=== PATIENT | female | born 1955 | race Caucasian/White ===

== ENCOUNTER 2017-06-01 14:59 | Inpatient (IN) | payer MEDICARE, SELFPAY ==
[2017-06-01 15:00] VITALS: BP 137/61; PULSE 93; RESP 18; TEMP 37.1; O2SAT 95; BMI 51.2
[2017-06-01 15:28] LABS: Color, Urine Yellow (Yellow); Glucose, Dipstick Normal (Normal); Ketone-Dipstick Negative (Negative); Leukocyte Esterase-Dipstick 25 /ul (Negative); Nitrite-Dipstick Negative (Negative); Occult Blood-Urine 150 /ul (Negative); Protein-Dipstick 30 mg/dl (Negative); Specific Gravity, Urine 1.015 (1.002-1.030); Urine Bilirubin Dipstick Negative (Negative); Urine Clarity Sl. Cloudy (Clear); Urine Urobilinogen Normal (Normal)
[2017-06-01 15:37] LABS: Bacteria RARE /hpf (None Seen); Mucous, Urine 1+ /hpf (<or=2+); Red Blood Cells-Urine 0-5 SEEN /hpf (0-5); Squamous Epithelial Cells - UA 0-5 SEEN /hpf (5-10); White Blood Cells 0-5 SEEN /hpf (0-5)
--- NOTE | 2017-06-01 15:43 | ED.VISSUMM ---
- ER Visit Summary Date of Service: 06/01/17 Chief Complaint: [] Persistent UTI symptoms, asking for Cipro History of Present Illness: The patient is a 62 F [] long history of UTI lower extremity edema looks from the pain and weakness and frequent UTIs. She was recently diagnosed a UTI she was prescribed ciprofloxacin which helps her UTIs, she gets when she went to pharmacy to fill the medication she was told she would not be able to get the Cipro for unspecified reasons to her possibly a med reaction, and she was given Keflex, the Keflex has made no difference she has persistent burning with urination and frequent urination she is constantly running to the restroom. She has had no fever no cough no change in her chronic medical conditions or status she states she is basically at baseline at home with her functional abilities Physical Examination: [] This is a large woman she has a large pannus ventral abdominal hernia her pannus extends into her area she has 2-3+ lower extremity edema she has chronic lower extremity pain none of that is new or different her range of motion to her lower extremities is normal her head exam chest exam abdominal exam are generally unremarkable her abdomen is very soft and nontender there is a ventral hernia that is not tender her back is unremarkable neurologically she is moving her lower extremities upper extremities at her baseline she assures me that she is basically at her baseline with her functional status, she does admit to being exhausted and had run back and forth to the bathroom Test Results: [] Emergency Department Course and Treatment: [] Patient insists that none of her medications are new she does not know why she could not have the Cipro I spoke with the [facility] pharmacist [phone] reviewed all of the above the pharmacist reports that in fact the Zanaflex medication is new and it was prescribed 05/17/2017 and the patient's never had it before and there is a contraindication to Cipro and Zanaflex. It is safe per pharmacy for the patient to stop the Zanaflex and resume the Cipro, I explained this to the patient that is what she wants to do at this time we will have her stop the Zanaflex she understands interactive can cause serious complications we will obtain screening labs to follow-up with her physicians The patient's urine shows some signs of UTI again she has been on Keflex, she does insist that she be placed on Cipro that helps her UTIs, she absolutely understands the need to stop the Zanaflex while she is on the Cipro as this could cause serious side effects for side effects and she will follow with her family doctor the next few days return for change in symptoms, she was given a prescription for Cipro for 7 days and she will stop the Keflex since it did not help and she understands a urine culture is pending and this must be checked by her PCP Treatment Plan: [] Disposition: [] Pending hospitalist evaluation please note the patient is now reporting she is too weak and tired to go home, she has full range of motion of her lower extremities at her baseline she assured me that her functional status was unchanged she did complain that she was tired from running back and forth to the bathroom, given all the above I have asked the hospitalist to see her Impression: [] Urinary tract infection, persistent dysuria despite the use of Keflex, history of frequent UTIs This note was generated with [employer] dictation software. It may contain incorrect words, spelling, and punctuation that were not noted in review of the chart prior to signing ED Disposition - Plan for ED Patient: Chief Complaint: Complaint Instructions: ED UTI Cystitis Female Prescriptions: Ciprofloxacin [Cipro] 500 mg PO BID #14 tab Referrals: Brittany Sorenson MD [Primary Care Provider] - Additional Instructions: Stop Keflex, stop Zanaflex while you are taking Cipro it can cause life-threatening side effects
--- NOTE | 2017-06-01 15:46 | ED.DCSUM_ITS ---
- ER Visit Summary Date of Service: 06/01/17 Chief Complaint: [] Persistent UTI symptoms, asking for Cipro History of Present Illness: The patient is a 62 F [] long history of UTI lower extremity edema looks from the pain and weakness and frequent UTIs. She was recently diagnosed a UTI she was prescribed ciprofloxacin which helps her UTIs, she gets when she went to pharmacy to fill the medication she was told she would not be able to get the Cipro for unspecified reasons to her possibly a med reaction, and she was given Keflex, the Keflex has made no difference she has persistent burning with urination and frequent urination she is constantly running to the restroom. She has had no fever no cough no change in her chronic medical conditions or status she states she is basically at baseline at home with her functional abilities Physical Examination: [] This is a large woman she has a large pannus ventral abdominal hernia her pannus extends into her area she has 2-3+ lower extremity edema she has chronic lower extremity pain none of that is new or different her range of motion to her lower extremities is normal her head exam chest exam abdominal exam are generally unremarkable her abdomen is very soft and nontender there is a ventral hernia that is not tender her back is unremarkable neurologically she is moving her lower extremities upper extremities at her baseline she assures me that she is basically at her baseline with her functional status, she does admit to being exhausted and had run back and forth to the bathroom Test Results: [] Emergency Department Course and Treatment: [] Patient insists that none of her medications are new she does not know why she could not have the Cipro I spoke with the [facility] pharmacist [phone] reviewed all of the above the pharmacist reports that in fact the Zanaflex medication is new and it was prescribed 2017 and the patient's never had it before and there is a contraindication to Cipro and Zanaflex. It is safe per pharmacy for the patient to stop the Zanaflex and resume the Cipro, I explained this to the patient that is what she wants to do at this time we will have her stop the Zanaflex she understands interactive can cause serious complications we will obtain screening labs to follow-up with her physicians The patient's urine shows some signs of UTI again she has been on Keflex, she does insist that she be placed on Cipro that helps her UTIs, she absolutely understands the need to stop the Zanaflex while she is on the Cipro as this could cause serious side effects for side effects and she will follow with her family doctor the next few days return for change in symptoms, she was given a prescription for Cipro for 7 days and she will stop the Keflex since it did not help and she understands a urine culture is pending and this must be checked by her PCP Treatment Plan: [] Disposition: [] Pending hospitalist evaluation please note the patient is now reporting she is too weak and tired to go home, she has full range of motion of her lower extremities at her baseline she assured me that her functional status was unchanged she did complain that she was tired from running back and forth to the bathroom, given all the above I have asked the hospitalist to see her Impression: [] Urinary tract infection, persistent dysuria despite the use of Keflex, history of frequent UTIs This note was generated with [employer] dictation software. It may contain incorrect words, spelling, and punctuation that were not noted in review of the chart prior to signing ED Disposition - Plan for ED Patient: Chief Complaint: Complaint Instructions: ED UTI Cystitis Female Prescriptions: Ciprofloxacin [Cipro] 500 mg PO BID #14 tab Referrals: Brittany Sorenson MD [Primary Care Provider] - Additional Instructions: Stop Keflex, stop Zanaflex while you are taking Cipro it can cause life- threatening side effects
[2017-06-01 16:20] LABS: Anion Gap 11 (5-15); BUN 48 mg/dL (7-18); BUN/Creat Ratio 35.6 RATIO (10-20); Calcium,Total 9.5 mg/dL (8.5-10.1); Chloride 105 mmol/L (98-107); Creatinine, Serum 1.35 mg/dL (0.55-1.02); EST Glomerular Filtration Rate 43 mL/min (>60); Est Glom Filt Rate - Afr Amer 51 mL/min (>60); Estimated Creatinine Clearance 35.05 ml/min; Glucose 149 mg/dL (70-110); Potassium 4.9 mmol/L (3.5-5.1); Sodium Level 137 mmol/L (136-145)
[2017-06-01 16:34] LABS: Absolute Lymphocyte Count 0.92 X10^3/ul (0.83-4.51); Basophil# 0.02 X10^3/uL; Basophil% 0.3 % (0-1); Eosinophil# 0.04 X10^3/uL; Eosinophils% 0.5 % (0-5); Hematocrit 33.6 % (37-47); Hemoglobin 10.8 g/dl (12.0-15.0); Lymphocyte # 0.92 X10^3/ul (4.0); Lymphocyte % 12.5 % (19-41); Mean Corp Hgb Conc 32.1 g/gl (32-36); Mean Corpuscular Volume 90.1 fL (81-99); Mean Platelet Vol. 10.3 fl (6.2-12.0); Monocyte# 0.43 X10^3/uL; Monocyte% 5.8 % (0-10); Neutrophil # 5.95 X10^3/uL (2.7-7.7); Neutrophil % 80.8 % (47-70); Platelet Count 135 K/mm3 (150-450); RBC Distribution Width CV 13.6 % (11.6-14.6); RBC Distribution Width SD 44.9 fl (35.1-43.9); Red Blood Count 3.73 M/mm3 (4.2-5.4); White Blood Count 7.4 K/mm3 (4.4-11.0)
[2017-06-01 16:39] LABS: POSITIVE COUNT NO; POSITIVE DIFFERENTIAL NO; POSITIVE MORPHOLOGY NO
--- NOTE | 2017-06-01 17:26 | DCINST.ED_ITS ---
ED Disposition - Plan for ED Patient: Chief Complaint: Complaint Instructions: ED UTI Cystitis Female Prescriptions: Ciprofloxacin [Cipro] 500 mg PO BID #14 tab Referrals: Brittany Sorenson MD [Primary Care Provider] - Additional Instructions: Stop Keflex, stop Zanaflex while you are taking Cipro it can cause life- threatening side effects
[2017-06-01 17:41] VITALS: BP 157/92; PULSE 95; RESP 18; O2SAT 98
--- NOTE | 2017-06-01 17:49 | ED.RN ---
2940-THIS RN INTO ROOM TO D/C PATIENT. PATIENT STATES I AM UNABLE TO WALK AND SISTER SAYS SHE CANNOT TAKE CARE OF HERSELF AT HOME. PATIENT REFUSING TO BE DISCHARGED AT THIS TIME. ED PHYSICIAN NOTIFIED AND HOSPITALIST PAGED.
--- NOTE | 2017-06-01 18:08 | HP.PCM_ITS ---
Problem List (1) Urinary tract infection Status: Acute Qualifiers: Encounter type: initial encounter (2) Morbid obesity Status: Chronic (3) Depression Status: Chronic Qualifiers: Depression Type: unspecified Qualified Code(s): F32.9 - Major depressive disorder, single episode, unspecified (4) Hypertension Status: Chronic Qualifiers: Hypertension type: essential hypertension Qualified Code(s): I10 - Essential (primary) hypertension (5) Type 2 diabetes mellitus Status: Chronic Qualifiers: Diabetes mellitus complication status: with unspecified complications History of Present Illness Date of Admission: 06/01/17 Chief Complaint: Urine urgency and frequency The patient is a 62 year old F with PMHx of morbic obesity, T2DM, noton meds, hypertension, h/o recurrent UTI comes in with complains of urine frequency, lower abdominal discomfort, generalised weakness, inabilityto walk. She denies dysuria, fever or chills. Recently treated with po keflex but says she has persistent symptoms. Vitals in the ED were T 98.8F, HR 93, BP 137/61, RR 18. Spo2 98% on RA. Admitting labs were stable, WBC of 7.8, Hb 10.8, Plt 135, BUN 48, Cr 1.35 UA is slightly cloudy, leucocyte esterase positive, WBC 0-5 Past Medical History Past Medical History (Chronic Problems): Chronic Problems Hyperlipidemia (Chronic) Umbilical hernia (Chronic) Morbid obesity (Chronic) Osteoarthritis (Chronic) Depression (Chronic) Hypertension (Chronic) Type 2 diabetes mellitus (Chronic) Allergies amoxicillin Adverse Reaction (Verified 06/01/17 15:00) Other latex Adverse Reaction (Verified 06/01/17 15:00) Other Home Medications: Ambulatory Orders Medication Instructions Recorded Citalopram [Celexa] 20 mg PO DAILY 07/10/16 Metoprolol Tartrate [Lopressor 50 mg PO BREAKFAST 07/10/16 (beta tristen)] Metoprolol Tartrate [Lopressor 100 mg PO QHS 07/10/16 (beta tristen)] Morphine Sulfate [Ms Contin] 60 mg PO BID 09/21/16 Cephalexin [Keflex] 500 mg PO TID 06/01/17 Diclofenac Potassium 50 mg PO TID PRN 06/01/17 Tizanadine Hcl 4 mg PO Q6H PRN PRN 06/01/17 Surgical History: cholecystectomy Psychiatric History: Depression 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 Denies: Chills, Fever, Weight Change Eyes: Denies: Blurred vision, Cataracts, Double vision, Pain, Redness HEENT: Denies: Head Aches, Hearing Changes, Nasal bleeding, Sinus Congestion, Sinus Drainage Cardiovascular: Denies: Chest Pain, Claudication, Chest Pressure, Orthopnea, Palpitations, Paroxysmal Noc. Dyspnea Respiratory: Denies: Cough, Hemoptysis, Shortness of Breath, Shortness of breath at rest, Shortness of breath upon exertion, Sputum production Gastrointestinal: Reports: Abdominal Pain. Denies: Constipation, Diarrhea, Hematemesis, Hematochezia, Nausea, Vomiting Genitourinary: Reports: Frequency, Urgency. Denies: Dysuria, Hematuria, Hesitancy, Incontinence Gynecological: Reports: Breast symptoms Musculoskeletal: Reports: - - Back pain. Denies: Joint Pain, Joint Tenderness Skin: Denies: Pruritis, Rash, Wounds Neurological: Denies: Difficulty swallowing, Focal weakness, Numbness, Tingling Psychiatric: Denies: Anxiety, Depression, Homicidal Ideations, Suicidal Ideations Hematologic/ Lymphatic: Denies: Easy Bruising, Easy Bleeding VTE Information - Inpt Only VTE Present on Admission: No VTE Pharm Prophylaxis ordered?: Yes - Physical Exam General: Alert, Oriented x3, Cooperative, - - Morbidly obese, looks well, not pale, not jaundiced HEENT: Atraumatic, PERRLA, EOMI, Normocephalic Oral: Moist Mucosa Neck: Supple Lungs: Clear to auscultation, Normal air movement Cardiovascular: Regular rate, Regular Rhythm, Normal S1, Normal S2, No murmurs Abdomen: Bowel Sounds Present, Soft, Non Tender, Non-Distended, No Hepato- splenomegaly, - - Huge anterior abdominal wall pannus Extremities: No edema Skin: No rashes Musculoskeletal: No Tenderness to Palpation of Joints or Extremities Lymphatic: No Cervical, Supraclavicular, or Inguinal Adenopathy Neurological: Cranial nerves II-XII grossly intact Psych/Mental Status: Normal Affect, Appropriate Vital Signs Temp Pulse Resp BP Pulse Ox 98.8 F 95 18 157/92 H 98 06/01/17 15:00 06/01/17 17:41 06/01/17 17:41 06/01/17 17:41 06/01/17 17:41 Oxygen Delivery Method Room Air Weight: 127.006 kg Body Mass Index (BMI) 51.2 Finger Stick Blood Glucose 145 Laboratory Tests Past 24 Hrs 06/01/17 06/01/17 06/01/17 15:10 15:45 15:45 WBC Cancelled Corrected WBC Cancelled RBC Cancelled Hgb Cancelled Hct Cancelled MCV Cancelled MCH Cancelled MCHC Cancelled RDW Cancelled RDW Differential Cancelled Plt Count Cancelled MPV Cancelled Immature Gran % (Auto) Cancelled Neut % (Auto) Cancelled Lymph % (Auto) Cancelled [place] % (Auto) Cancelled Eos % (Auto) Cancelled Baso % (Auto) Cancelled Immature Gran # (Auto) Cancelled Absolute Neuts (auto) Cancelled Absolute Lymphs (auto) Cancelled Absolute Monos (auto) Cancelled Total Counted Cancelled Neutrophils % (Manual) Cancelled Band Neutrophils % Cancelled Lymphocytes % (Manual) Cancelled Monocytes % (Manual) Cancelled Eosinophils % (Manual) Cancelled Basophils % (Manual) Cancelled Metamyelocytes % Cancelled Myelocytes % Cancelled Promyelocytes % Cancelled Blast Cells % Cancelled Plasma Cell % (Manual) Cancelled Other Cells % Cancelled Lymphocytes # Cancelled Nucleated RBCs/100 WBC Cancelled Differential Comment Cancelled Diff Path Review Cancelled Hypersegmented Neuts Cancelled Atypical Lymphocytes Cancelled Reactive Lymphocytes Cancelled Smudge Cells Cancelled Eosinophilia # Cancelled Basophilia # Cancelled Toxic Granulation Cancelled Dohle Bodies Cancelled Jareth Rods Cancelled Platelet Estimate Cancelled Plt Morphology Comment Cancelled RBC Morphology Cancelled Polychromasia Cancelled Hypochromasia Cancelled Poikilocytosis Cancelled Basophilic Stippling Cancelled Anisocytosis Cancelled Microcytosis Cancelled Macrocytosis Cancelled Spherocytes Cancelled Sickle Cells Cancelled Target Cells Cancelled Tear Drop Cells Cancelled Ovalocytes Cancelled Stomatocytes Cancelled Cordero-[place] Bodies Cancelled [place] Cells Cancelled Bite Cells Cancelled Acanthocytes (Spur) Cancelled Rouleaux Cancelled Schistocytes Cancelled Sodium 137 Potassium 4.9 Chloride 105 Carbon Dioxide 21.0 Anion Gap 11 BUN 48 H Creatinine 1.35 H Estim Creat Clear Calc 35.05 Est GFR (MDRD) Af Amer 51 L Est GFR (MDRD) Non-Af 43 L BUN/Creatinine Ratio 35.6 H Glucose 149 H Calcium 9.5 Urine Color Yellow Urine Clarity Sl. Cloudy Urine pH 5.0 Ur Specific [place] 1.015 Urine Protein 30 H Urine Glucose (UA) Normal Urine Ketones Negative Urine Occult Blood 150 H Urine Nitrite Negative Urine Bilirubin Negative Urine Urobilinogen Normal Ur Leukocyte Esterase 25 H Urine RBC 0-5 SEEN Urine WBC 0-5 SEEN Ur Squamous Epith Cells 0-5 SEEN Urine Bacteria RARE Urine Mucus 1+ 06/01/17 16:15 WBC 7.4 Corrected WBC RBC 3.73 L Hgb 10.8 L Hct 33.6 L MCV 90.1 MCH 29.0 MCHC 32.1 RDW 13.6 RDW Differential 44.9 H Plt Count 135 L MPV 10.3 Immature Gran % (Auto) 0.100 Neut % (Auto) 80.8 H Lymph % (Auto) 12.5 L [place] % (Auto) 5.8 Eos % (Auto) 0.5 Baso % (Auto) 0.3 Immature Gran # (Auto) Absolute Neuts (auto) 6.0 Absolute Lymphs (auto) 0.92 Absolute Monos (auto) Total Counted Not Reportable Neutrophils % (Manual) Band Neutrophils % Lymphocytes % (Manual) Monocytes % (Manual) Eosinophils % (Manual) Basophils % (Manual) Metamyelocytes % Myelocytes % Promyelocytes % Blast Cells % Plasma Cell % (Manual) Other Cells % Lymphocytes # Nucleated RBCs/100 WBC Differential Comment Diff Path Review Hypersegmented Neuts Atypical Lymphocytes Reactive Lymphocytes Smudge Cells Eosinophilia # Basophilia # Toxic Granulation Dohle Bodies Jareth Rods Platelet Estimate Plt Morphology Comment RBC Morphology Polychromasia Hypochromasia Poikilocytosis Basophilic Stippling Anisocytosis Microcytosis Macrocytosis Spherocytes Sickle Cells Target Cells Tear Drop Cells Ovalocytes Stomatocytes Cordero-Est[place] Bodies Meghan Cells Bite Cells Acanthocytes (Spur) Rouleaux Schistocytes Sodium Potassium Chloride Carbon Dioxide Anion Gap BUN Creatinine Estim Creat Clear Calc Est GFR (MDRD) Af Amer Est GFR (MDRD) Non-Af BUN/Creatinine Ratio Glucose Calcium Urine Color Urine Clarity Urine pH Ur Specific [place] Urine Protein Urine Glucose (UA) Urine Ketones Urine Occult Blood Urine Nitrite Urine Bilirubin Urine Urobilinogen Ur Leukocyte Esterase Urine RBC Urine WBC Ur Squamous Epith Cells Urine Bacteria Urine Mucus Assessment/Plan 62 year old F with PMHx of morbic obesity, T2DM, noton meds, hypertension, h/o recurrent UTI comes in with complains of urine frequency, lower abdominal discomfort, generalised weakness, inabilityto walk 1. Debility related to acute UTI, morbidly obese, recurrent UTI Plan: Admit under observation, gentle IV fluids, p.o. Cipro twice daily, PT and OT to evaluate patient 2. UTI, history of recurrent UTI, in a morbidly obese patient, recently treated with Keflex, will start patient on Cipro, urine culture sent by ED, will wait for results to adjust medication 3. Acute kidney injury, likely related to dehydration, will start patient on IV fluids, repeat labs in the morning 4. Type 2 diabetes, in a morbidly obese patient, not on medications at home, will check HbA1c, continue with Accu-Cheks 5. Hypertension, controlled, continue on home metoprolol 6. Depression, on Celexa 7. Chronic pain syndrome, on MS Contin and diclofenac, will hold diclofenac for now, continue on MS Contin 8. DVT PPx - On Lovenox 40mg BID on account of morbid obesity. Code Visit OBSV E&M: 62290 Initial observation care L2
[2017-06-01] MEDS: Ciprofloxacin 500 MG Tablet PO (18:53)
[2017-06-01 18:55] VITALS: BP 144/70; PULSE 72; RESP 16; O2SAT 97
[2017-06-01 19:30] VITALS: BP 128/70; PULSE 94; RESP 16; TEMP 36.9; O2SAT 98
[2017-06-01 20:02] VITALS: BMI 51.2; BMI 54.6
[2017-06-01 20:28] LABS: Iron 62 ug/dL (50-170); Iron Binding Capacity,Total 332 ug/dL (250-450); PERCENT IRON SATURATION 18.7 % (15.0-55.0)
[2017-06-01 22:40] VITALS: O2SAT 98
[2017-06-01] MEDS: Enoxaparin 40 MG/0.4 ML Syringe SC (22:53)
[2017-06-01 22:55] VITALS: BP 119/55; PULSE 94
[2017-06-01] MEDS: Metoprolol Tartrate 100 MG Tablet PO (22:55)
[2017-06-01] MEDS: 0.9% Normal Saline 1,000 ML 100 ML IV (22:59)
[2017-06-01 23:26] LABS: Bedside Glucose 99 mg/dL (70-110)
[2017-06-02] VITALS (8 sets, daily range): BP systolic 115–141; BP diastolic 59–76; PULSE 80–93; RESP 18; TEMP 36.8–37.5; O2SAT 94–98
[2017-06-02 06:28] LABS: Absolute Lymphocyte Count 1.87 X10^3/ul (0.83-4.51); Absolute Neutrophil Count 3.4 X10^3/uL (2.0-7.7); Basophil# 0.02 X10^3/uL; Basophil% 0.3 % (0-1); Eosinophil# 0.13 X10^3/uL; Eosinophils% 2.2 % (0-5); Hematocrit 30.7 % (37-47); Hemoglobin 9.7 g/dl (12.0-15.0); Lymphocyte # 1.87 X10^3/ul (4.0); Lymphocyte % 31.1 % (19-41); Mean Corp Hgb Conc 31.6 g/gl (32-36); Mean Corpuscular Volume 91.6 fL (81-99); Mean Platelet Vol. 10.5 fl (6.2-12.0); Monocyte# 0.61 X10^3/uL; Monocyte% 10.1 % (0-10); Neutrophil # 3.38 X10^3/uL (2.7-7.7); Neutrophil % 56.1 % (47-70); Platelet Count 118 K/mm3 (150-450); RBC Distribution Width SD 46.6 fl (35.1-43.9); Red Blood Count 3.35 M/mm3 (4.2-5.4)
[2017-06-02 06:33] LABS: POSITIVE COUNT NO; POSITIVE DIFFERENTIAL NO; POSITIVE MORPHOLOGY NO
[2017-06-02 06:55] LABS: Anion Gap 7 (5-15); BUN 37 mg/dL (7-18); BUN/Creat Ratio 35.9 RATIO (10-20); Calcium,Total 9.1 mg/dL (8.5-10.1); Chloride 109 mmol/L (98-107); Creatinine, Serum 1.03 mg/dL (0.55-1.02); EST Glomerular Filtration Rate 58 mL/min (>60); Est Glom Filt Rate - Afr Amer 70 mL/min (>60); Estimated Creatinine Clearance 45.94 ml/min; Glucose 104 mg/dL (70-110); Potassium 4.2 mmol/L (3.5-5.1); Sodium Level 141 mmol/L (136-145)
[2017-06-02 07:06] LABS: Bedside Glucose 108 mg/dL (70-110)
[2017-06-02] MEDS: Metoprolol Tartrate 50 MG Tablet PO (07:41)
[2017-06-02] MEDS: 0.9% Normal Saline 1,000 ML 100 ML IV (08:00)
--- NOTE | 2017-06-02 09:04 | PCM.DC ---
- Discharge Diagnoses Reason(s) for Visit for Discharge Instructions: Abdominal discomfort, urine urgency You will use the following diet at home:: Calorie/Carbohydrate Controlled (specify 1200, 1400, etc), Cardiac Your food should be the consistency of: Regular Your liquids should be the consistency of: Regular/Thin Discharge Activity: Return to Normal Activity Instructions: ED UTI Cystitis Female Additional Instructions: complete your antibiotics. keep yourself hydarted all the time. Allergies/Adverse Reactions: Allergies amoxicillin Adverse Reaction (Verified 06/01/17 15:00) Other latex Adverse Reaction (Verified 06/01/17 15:00) Other Medications to take at Discharge Citalopram [Celexa] 20 mg PO DAILY 07/10/16 Metoprolol Tartrate [Lopressor (beta tristen)] 50 mg PO BREAKFAST 07/10/16 Metoprolol Tartrate [Lopressor (beta tristen)] 100 mg PO QHS 07/10/16 Morphine Sulfate [Ms Contin] 60 mg PO BID 09/21/16 Diclofenac Potassium 50 mg PO TID PRN 06/01/17 Tizanadine Hcl 4 mg PO Q6H PRN PRN 06/01/17 Ciprofloxacin [Cipro] 500 mg PO BID #6 tab 06/02/17 Nystatin Powder [Mycostatin Powder] 1 applic TOPICAL BID #1 bottle 06/02/17 The following prescriptions were given: Ciprofloxacin [Cipro] 500 mg PO BID #6 tab Nystatin Powder [Mycostatin Powder] 1 applic TOPICAL BID #1 bottle Primary Care Physician: Brittany Sorenson MD [Primary Care Provider] - Please follow up with your Primary Care Physician in: in 1 week Proposed Discharge Date: 06/02/17
--- NOTE | 2017-06-02 09:07 | DCINST_ITS ---
- Discharge Diagnoses Reason(s) for Visit for Discharge Instructions: Abdominal discomfort, urine urgency You will use the following diet at home:: Calorie/Carbohydrate Controlled ( specify 1200, 1400, etc), Cardiac Your food should be the consistency of: Regular Your liquids should be the consistency of: Regular/Thin Discharge Activity: Return to Normal Activity Instructions: ED UTI Cystitis Female Additional Instructions: complete your antibiotics. keep yourself hydarted all the time. Allergies/Adverse Reactions: Allergies amoxicillin Adverse Reaction (Verified 06/01/17 15:00) Other latex Adverse Reaction (Verified 06/01/17 15:00) Other Medications to take at Discharge Citalopram [Celexa] 20 mg PO DAILY 07/10/16 Metoprolol Tartrate [Lopressor (beta tristen)] 50 mg PO BREAKFAST 07/10/16 Metoprolol Tartrate [Lopressor (beta tristen)] 100 mg PO QHS 07/10/16 Morphine Sulfate [Ms Contin] 60 mg PO BID 09/21/16 Diclofenac Potassium 50 mg PO TID PRN 06/01/17 Tizanadine Hcl 4 mg PO Q6H PRN PRN 06/01/17 Ciprofloxacin [Cipro] 500 mg PO BID #6 tab 06/02/17 Nystatin Powder [Mycostatin Powder] 1 applic TOPICAL BID #1 bottle 06/02/17 The following prescriptions were given: Ciprofloxacin [Cipro] 500 mg PO BID #6 tab Nystatin Powder [Mycostatin Powder] 1 applic TOPICAL BID #1 bottle Primary Care Physician: Brittany Sorenson MD [Primary Care Provider] - Please follow up with your Primary Care Physician in: in 1 week Proposed Discharge Date: 06/02/17
--- NOTE | 2017-06-02 10:54 | PCM.DC.SUM ---
Discharge Date and Diagnosis Date of Admission: 06/01/17 Date of Discharge: 06/02/17 - Primary Discharge Diagnosis UTI Acute kidney injury - Secondary Discharge Diagnosis Chronic Problems Hyperlipidemia (Chronic) Umbilical hernia (Chronic) Morbid obesity (Chronic) Osteoarthritis (Chronic) Depression (Chronic) Hypertension (Chronic) Type 2 diabetes mellitus (Chronic) Hospital Course and Treatment Operations: None Procedures: None Summary of Care Provided: 62 year old F with PMHx of morbic obesity, T2DM, noton meds, hypertension, h/o recurrent UTI comes in with complains of urine frequency, lower abdominal discomfort, generalised weakness, inability to walk 1. Debility related to acute UTI, morbidly obese, recurrent UTI, PT/OT evaluated and are ok with home health 2. UTI, history of recurrent UTI, in a morbidly obese patient, recently treated with Keflex, on cipro bid, urine cultures are pending.... 3. Acute kidney injury, likely related to dehydration, resolved with IVF 4. Type 2 diabetes, in a morbidly obese patient, not on medications at home, stable BS 5. Hypertension, controlled, continue on home metoprolol 6. Depression, on Celexa 7. Chronic pain syndrome, on MS Contin and diclofenac On the day of discharge, there were no complains from patient. She had less urine urgency, no dysuria, felt better. Her BMP was better with resolution of JH. Sh walked with physical therapy and aides. Will go [facility] with [facility]. Discharge Diet: Low fat/ Low Cholesterol, 2200 Calorie Control Diet, 2000 mg Sodium Diet Discharge Activity: Return to Normal Activity Home Medications: Medications to take at Discharge Citalopram [Celexa] 20 mg PO DAILY 07/10/16 Metoprolol Tartrate [Lopressor (beta tristen)] 50 mg PO BREAKFAST 07/10/16 Metoprolol Tartrate [Lopressor (beta tristen)] 100 mg PO QHS 07/10/16 Morphine Sulfate [Ms Contin] 60 mg PO BID 09/21/16 Diclofenac Potassium 50 mg PO TID PRN 06/01/17 Tizanadine Hcl 4 mg PO Q6H PRN PRN 06/01/17 Ciprofloxacin [Cipro] 500 mg PO BID #6 tab 06/02/17 Nystatin Powder [Mycostatin Powder] 1 applic TOPICAL BID #1 bottle 06/02/17 Following Prescrptions Were Given to Patient: Ciprofloxacin [Cipro] 500 mg PO BID #6 tab Nystatin Powder [Mycostatin Powder] 1 applic TOPICAL BID #1 bottle Primary Care Physician: Brittany Sorenson MD [Primary Care Provider] - Please follow up with your Primary Care Physician in: in 1 week Patient Instructions: ED UTI Cystitis Female Disposition: Home Minutes spent on discharge:: 25 Patient Condition:: Stable Meaningful Use Info Meaningful Use Diagnoses (Choose all that apply): None applicable Code Visit Inpatient E&M: 47996 Disch Hosp
[2017-06-02] MEDS: Ciprofloxacin 500 MG Tablet PO ×2 (11:00→22:17)
[2017-06-02] MEDS: Citalopram 20 MG Tablet PO (11:00)
[2017-06-02] MEDS: Enoxaparin 40 MG/0.4 ML Syringe SC ×2 (11:01→22:21)
[2017-06-02] MEDS: Menthol/Lanolin/Calamine/Znox 113 GM Tube 1 APPLIC TOPICAL ×2 (11:01→22:16)
[2017-06-02] MEDS: Nystatin Powder 15gm Bottle 1 APPLIC TOPICAL ×2 (11:02→22:16)
[2017-06-02] MEDS: Senna/Docusate Sodium 1 Tablet 2 TABLET PO (11:04)
[2017-06-02 11:36] LABS: Bedside Glucose 181 mg/dL (70-110)
[2017-06-02 17:36] LABS: Bedside Glucose 152 mg/dL (70-110)
[2017-06-02] MEDS: Metoprolol Tartrate 100 MG Tablet PO (22:21)
[2017-06-02 23:11] LABS: Bedside Glucose 195 mg/dL (70-110)
[2017-06-03] VITALS (7 sets, daily range): BP systolic 116–140; BP diastolic 49–80; PULSE 60–85; RESP 18; TEMP 36.7–37.3; O2SAT 95–100
[2017-06-03 06:56] LABS: Bedside Glucose 180 mg/dL (70-110)
--- NOTE | 2017-06-03 09:21 | CASEMGMT ---
Social Work Assessment Referral Date: 06/03/2017 Date of Assessment: 06/03/2017 Reason for Consult: PT/OT recommending placement. Informant: Jose De Jesus Lance RN CM Personal Status: Pt is alert and oriented x4. Presents with pleasant affect as evidenced by smiling and willingness to participate in assessment. No evidence of slurred speech and pt remains appropriate throughout assessment. No visitors present at this time and pt able to complete assessment independently. She reports that her living arrangements are at [facility]. Her home is a one bedroom apartment on the fifth floor that she has elevator access to and she lives alone. DME consists of a rollator, cane, grab bars and tub shower. Pt is well kept, finger nails clean and per pt report she is still able to trim finger and toe nails and is able to manage ADL's and IADL's. Denies receiving assisted living care, aides or additional help in her home. States she does not qualify for Medicaid or therefore [employer] and does not feel she needs them at this time. Review PT/OT recommendation with pt as well as reasoning based on her performance. Pt states she does not feel safe using this walker (standard walker) and ambulate much better with my rollater. Claims she is able to manage the distances within her home. States that she has osteoarthritis and sticking me in a custodial for therapy is not going to make that better. Also states that she has sciatica and was painful yesterday and feels that her pain is better managed today. She is on MS Contin prescribed by Dr. Sorenson and reports that this manages her symptoms well. Some days are better than others, but its part of aging. Reports that she has been managing her care in this independent living for twelve years and appreciates the therapists and physician's concern, but they cannot just tell people what they have to do. Support provided and pt identifies her autonomy as an important part of who she is, and that she wants to maintain this for as long as possible. Reports that she typically skips breakfast and if she does not wake up until 11 usually misses lunch as well. States that she has been eating a significant amount of fish and potatoes, and avoiding pastas. Discuss with the pt to maintain strength she is going to need to nourish her body appropriately. The better she is able to comply with food intake the more strength she will be able to maintain. Reports that her water intake could be better but that she stays away from soda products as they typically cause UTIs. Reports she recently had a pepsi prior to coming into the hospital and regrets it as it resulted in a UTI. Pt manages her own medications and claims that her blood sugars are managed well too. Last February she weighed 350 lbs, and is now down to 280. Her PCP is Dr. Sorenson, and she denies having an endocronologist. Educate the pt to JOSEFINA Alexander and offer to setup with an initial appointment, but the pt reports she meets with Dr. Sorenson in August and would like to further discuss this with her. At this time pt intends on returning home to her independent living, and is refusing HHC or SNF. States that her sister will pick her up and bring her knee braces and rollator to transport her home. Her mother lives in assisted living on the 3rd floor, and she has sisters that live locally as well. States that she no longer drives, but her sister picks her up and they will run errands such as going to the bank, the grocery store and sometimes just getting lunch with one another and their mother. She is able to manage those community distances. Substance Use Hx and Current Pattern of Use: Pt denies any current use of substances or past history. Mental Health Hx and Current Status: Diagnoses: Depression Stressors: Denies any currently SI or HI? No Treatment? Yes When? 6 years ago [facility] Medication Assistance? Celexa Prescribed by: Dr. Sorenson Pt reports to have a hx of depression. Has been on Celexa for several years and this is prescribed by her PCP. She was in counseling at [facility] about 6 years ago, but does not feel it is necessary at this time. Pt denies SI or HI. She reports that she keeps herself busy when she has depressive symptoms and cleans, does puzzles or visits family. She reports that she feels her symptoms are well managed, and has an optimistic and futuristic outlook. Resources: Transportation: Sister provides transportation as needed. Intervention: Assessment completed. Educated to importance of nutrition and managing comorbidities to prolong longevity of autonomy. Provided with additional resources, but pt declined at this time. Pt made aware that SW is available if additional needs arise. Plan: Return to independent living at [facility] as prior to admission. GEORGIE BrandW
[2017-06-03] MEDS: Menthol/Lanolin/Calamine/Znox 113 GM Tube 1 APPLIC TOPICAL ×2 (09:53→21:02)
[2017-06-03] MEDS: Metoprolol Tartrate 50 MG Tablet PO (09:53)
[2017-06-03] MEDS: Nystatin Powder 15gm Bottle 1 APPLIC TOPICAL ×2 (09:54→21:06)
[2017-06-03] MEDS: Citalopram 20 MG Tablet PO (09:54)
[2017-06-03] MEDS: Enoxaparin 40 MG/0.4 ML Syringe SC ×2 (09:54→21:04)
[2017-06-03] MEDS: Ciprofloxacin 500 MG Tablet PO (09:54)
[2017-06-03 11:40] LABS: Bedside Glucose 245 mg/dL (70-110)
[2017-06-03 16:56] LABS: Bedside Glucose 248 mg/dL (70-110)
--- NOTE | 2017-06-03 18:00 | PN_ITS ---
Subjective: Patient is a 62-year-old female with a past medical history of diabetes mellitus type 2, hypertension, osteoarthritis, umbilical hernia, chronic thrombocytopenia, depression and morbid obesity who presented to the emergency room at [facility] on 06/01/2017 complaining of urinary frequency , lower abdominal discomfort and inability to walk. She tells me today that she has a rapidly enlarging mass of the right medial thigh that is making it very difficult for her to walk. She has had this drained several years ago and tells me that it was blood and fluid with no pus. Vital signs at presentation to the emergency room were temp 98.8, heart rate 93, blood pressure 137/61, respiratory rate 18 and the pulse ox on room air was 98%. White blood cell count was normal at 7.4 with 81% neutrophils. Hemoglobin was 10.8 and platelet count was low at 135,000. She had acute kidney injury with an elevated creatinine at 1.35 and it was 0.88 in September 2016. Hemoglobin A1c is 7.0. A UA showed 0-5 WBCs and 0-5 RBCs with rare bacteria. A urine specimen was obtained from a catheterization. Urine culture has no growth to date. - Physical Exam General: Alert, Oriented x3, Cooperative, - - she had a very difficult time getting out of the chair and ambulating a few steps to the bed. HEENT: Atraumatic, PERRLA, EOMI, Normocephalic Neck: No JVD Lungs: Clear to auscultation, Diminished Cardiovascular: Regular rate, Regular Rhythm, Normal S1, Normal S2, No Gallop Abdomen: Obese, - - She has a large umbilical hernia which is reducible and nontender Extremities: No edema - No pitting edema of the distal lower extremities, - - there is a large football sized mass of the right medial thigh and it is firm, no fluctuant. There are no openings in the skin but the skin is dimpled. There are some patchy areas of erythema but no warmth to touch and she had no pain with palpation. Skin: No breakdown Neurological: Cranial nerves II-XII grossly intact, Neuro grossly intact Psych/Mental Status: Normal Affect, Appropriate Vital Signs Temp Pulse Resp BP Pulse Ox 98.1 F 85 18 116/49 L 100 06/03/17 10:06/03/17 10:06/03/17 10:06/03/17 10:00 06/03/17 10:00 Oxygen Delivery Method Room Air Weight: 298 lb 15.149 oz Body Mass Index (BMI) 54.6 Intake and Output for Last 24 Hours 06/01/17 06/02/17 06/03/17 23:59 23:59 23:59 Intake Total 3630 / 3630 630 / 630 Output Total 2250 / 2250 650 / 650 Balance 1380 / 1380 -20 / -20 POC Glucose 06/03/17 06/03/17 06/03/17 16:51 11:15 06:33 POC Glucose 248 H 245 H 180 H 06/02/17 22:12 POC Glucose 195 H Assessment/Plan Impressions 1. Debility with difficult ambulation secondary to a rapidly enlarging mass on the right medial thigh. Discharge has been canceled because the patient is unable to ambulate and care for herself at this time. 2. Morbid obesity 3. Diabetes mellitus type 2 with a hemoglobin A1c of 7 4. Hypertension 5. Large umbilical hernia-reducible 6. Hyperlipidemia 7. Osteoarthritis 8. Chronic thrombocytopenia - ITP? 9. Acute kidney injury -suspect prerenal 10. Chronic pain syndrome on MS Contin 60 mg every 12 hours 11. Urinary tract infection ruled out DC antibiotics because I have no source for infection and UTI has been ruled out Obtain a CT scan of the R Leg Discussed with Dr. Marroquin and she will see the pt in consult check an ESR and a CRP CMP, CBC with diff, pt/ptt in AM change the patient to inpt Code Visit Inpatient E&M: 58984 Subs Hosp L2
--- NOTE | 2017-06-03 18:28 | CT_ITS ---
STUDY: CT PELVIS WITHOUT CONTRAST REASON FOR EXAM: Female, 62 years old. Growing mass RADIATION DOSAGE (If Supplied By Facility): CTDIvol = ( 28.21 ) mGy, DLP = ( 1562.80 ) mGycm TECHNIQUE: Transaxial imaging of the pelvis was performed without oral contrast, and without intravenous administration of contrast material. Individualized dose optimization techniques were used for this CT. COMPARISON: Prior study of July 11, 2016 FINDINGS: The lateral aspects of the pelvis are not in the field of view of the study secondary to obesity. There is a minimally filled urinary bladder. There is a midline lower pelvic ventral hernia containing multiple nondistended loops of small bowel. Normal visualized colon. There is no pelvic fluid. There is no pelvic mass lesion or lymphadenopathy. Normal visualized uterus. Normal visualized pelvic arteries. There is fatty stranding with skin thickening of a lower pelvic pannus which may represent cellulitis. There are degenerative changes of the lumbosacral junction. CT/Pelvis without IV Contrast IMPRESSION: Midline lower pelvic ventral hernia containing multiple nondistended loops of small bowel. There is fatty stranding and skin thickening of a lower pelvic pannus suggestive of cellulitis. There is no evidence of inguinal mass or adenopathy. Electronically Signed: Sebastian Wyman MD at 21:33 EST , Service support ,
[2017-06-03] MEDS: Metoprolol Tartrate 100 MG Tablet PO (21:04)
[2017-06-03 21:36] LABS: Bedside Glucose 190 mg/dL (70-110)
[2017-06-04] VITALS (7 sets, daily range): BP systolic 125–151; BP diastolic 62–76; PULSE 72–84; RESP 16–18; TEMP 36.9–37.3; O2SAT 96–99
[2017-06-04 05:55] LABS: Bedside Glucose 121 mg/dL (70-110)
[2017-06-04 07:17] LABS: International Normalized Ratio 1.1
[2017-06-04 07:25] LABS: Absolute Lymphocyte Count 1.79 X10^3/ul (0.83-4.51); Absolute Neutrophil Count 3.2 X10^3/uL (2.0-7.7); Basophil# 0.04 X10^3/uL; Basophil% 0.7 % (0-1); Eosinophil# 0.11 X10^3/uL; Eosinophils% 1.9 % (0-5); Erythrocyte Sedimentation Rate 76 mm/hr (0-30); Hemoglobin 9.8 g/dl (12.0-15.0); Lymphocyte # 1.79 X10^3/ul (4.0); Lymphocyte % 31.7 % (19-41); Mean Corp Hgb Conc 31.6 g/gl (32-36); Mean Corpuscular Hgb 30.2 pg (27.0-32.0); Mean Corpuscular Volume 95.4 fL (81-99); Mean Platelet Vol. 11.3 fl (6.2-12.0); Monocyte# 0.46 X10^3/uL; Monocyte% 8.1 % (0-10); Neutrophil # 3.24 X10^3/uL (2.7-7.7); Neutrophil % 57.4 % (47-70); POSITIVE COUNT NO; POSITIVE DIFFERENTIAL NO; POSITIVE MORPHOLOGY NO; Platelet Count 97 K/mm3 (150-450); RBC Distribution Width CV 13.3 % (11.6-14.6); RBC Distribution Width SD 44.6 fl (35.1-43.9); Red Blood Count 3.25 M/mm3 (4.2-5.4); White Blood Count 5.7 K/mm3 (4.4-11.0)
[2017-06-04 07:35] LABS: ALB/GLOB Ratio 0.5 RATIO (0.9-2.4); AST(SGOT) 42 U/L (15-37); Alanine Aminotransfer ALT/SGPT 31 U/L (13-56); Albumin, Serum 2.6 g/dL (3.2-5.0); Alkaline Phosphatase 132 U/L (45-117); Anion Gap 7 (5-15); BUN 22 mg/dL (7-18); CRP 4.67 mg/L (0.0-3.0); Calcium,Total 9.3 mg/dL (8.5-10.1); Chloride 107 mmol/L (98-107); Cholesterol 152 mg/dL (200); Creatinine, Serum 0.92 mg/dL (0.55-1.02); EST Glomerular Filtration Rate 67 mL/min (>60); Est Glom Filt Rate - Afr Amer 81 mL/min (>60); Estimated Creatinine Clearance 51.43 ml/min; Globulin 4.9 g/dL (2.2-4.2); Glucose 115 mg/dL (70-110); High Density Lipoprotein 37 mg/dL; Magnesium 1.5 mg/dL (1.6-2.6); Potassium 4.3 mmol/L (3.5-5.1); Protein, Total 7.5 g/dL (6.4-8.2); Sodium Level 138 mmol/L (136-145); Triglycerides 130 mg/dL; Very Low Density Lipoprotein 26 mg/dL (5-40)
[2017-06-04] MEDS: Metoprolol Tartrate 50 MG Tablet PO (08:50)
[2017-06-04] MEDS: Nystatin Powder 15gm Bottle 1 APPLIC TOPICAL ×2 (10:38→21:40)
[2017-06-04] MEDS: Enoxaparin 40 MG/0.4 ML Syringe SC ×2 (10:39→21:41)
[2017-06-04] MEDS: Citalopram 20 MG Tablet PO (10:39)
[2017-06-04] MEDS: Menthol/Lanolin/Calamine/Znox 113 GM Tube 1 APPLIC TOPICAL ×2 (10:39→21:40)
--- NOTE | 2017-06-04 11:15 | PCM.CONS.GEN ---
<Tamara Marroquina - Last Filed: 06/04/17 16:52> Reason for Consult History of Present Illness: The patient is a 62 year old F [] Past Medical History Past Medical History (Chronic Problems): Chronic Problems Normochromic normocytic anemia (Chronic) Hyperlipidemia (Chronic) Umbilical hernia (Chronic) Morbid obesity (Chronic) Osteoarthritis (Chronic) Depression (Chronic) Hypertension (Chronic) Type 2 diabetes mellitus (Chronic) Allergies amoxicillin Adverse Reaction (Verified 06/01/17 15:00) Other latex Adverse Reaction (Verified 06/01/17 15:00) Other Home Medications: Ambulatory Orders Medication Instructions Recorded Citalopram [Celexa] 20 mg PO DAILY 07/10/16 Metoprolol Tartrate [Lopressor 50 mg PO BREAKFAST 07/10/16 (beta tristen)] Metoprolol Tartrate [Lopressor 100 mg PO QHS 07/10/16 (beta tristen)] Morphine Sulfate [Ms Contin] 60 mg PO BID 09/21/16 Diclofenac Potassium 50 mg PO TID PRN 06/01/17 Tizanadine Hcl 4 mg PO Q6H PRN PRN 06/01/17 Nystatin Powder [Mycostatin Powder] 1 applic TOPICAL BID #1 bottle 06/02/17 Cefadroxil 1 gm PO BID #10 tab 06/05/17 - Physical Exam Vital Signs Temp Pulse Resp BP Pulse Ox 98.5 F 72 18 125/62 H 96 06/04/17 14:53 06/04/17 14:53 06/04/17 14:53 06/04/17 14:53 06/04/17 14:53 Oxygen Delivery Method Room Air Weight: 135.6 kg Laboratory Tests Past 24 Hrs 06/04/17 06/04/17 06/04/17 06:36 06:36 06:36 WBC 5.7 RBC 3.25 L Hgb 9.8 L Hct 31.0 L MCV 95.4 MCH 30.2 MCHC 31.6 L RDW 13.3 RDW Differential 44.6 H Plt Count 97 L MPV 11.3 Immature Gran % (Auto) 0.200 Neut % (Auto) 57.4 Lymph % (Auto) 31.7 [place] % (Auto) 8.1 Eos % (Auto) 1.9 Baso % (Auto) 0.7 Absolute Neuts (auto) 3.2 Absolute Lymphs (auto) 1.79 Total Counted Not Reportable ESR 76 H PT 14.0 INR 1.1 Sodium 138 Potassium 4.3 Chloride 107 Carbon Dioxide 24.0 Anion Gap 7 BUN 22 H Creatinine 0.92 Estim Creat Clear Calc 51.43 Est GFR (MDRD) Af Amer 81 Est GFR (MDRD) Non-Af 67 BUN/Creatinine Ratio 24.0 H Glucose 115 H Calcium 9.3 Phosphorus 3.0 Magnesium 1.5 L Total Bilirubin 0.50 AST 42 H ALT 31 Alkaline Phosphatase 132 H C-React Prot Ext Range 4.67 H Total Protein 7.5 Albumin 2.6 L Globulin 4.9 H Albumin/Globulin Ratio 0.5 L Triglycerides 130 Cholesterol 152 LDL Cholesterol 89 VLDL Cholesterol 26 HDL Cholesterol 37 L POC Glucose 06/04/17 06/04/17 06/03/17 12:15 05:51 21:15 POC Glucose 193 H 121 H 190 H Assessment/Plan I have reviewed above. Seen and examined patient. I believe that this enlarging thigh mass is probable excess fibroepithelial fatty tissue. I do not believe that this is actively infected/cellulitis, the skin discoloration is probably chronic edematous/dependent changes of the skin. My review of the CT scan - I do not believe any active infection/abscess is present. Upon further discussion with the patient, she states that the appendage is essentially the same size, but has been bothering her more lately. Probably due to the dependent nature of the lesion creating difficulty with walking. She states that she has lost about 50 pounds. The appendage is hindering her from being more active. I have told patient to follow up with me as an outpatient. I will try to refer patient to either [facility] or [facility] to determine if the bariatric surgeons or plastic surgeons would be able to offer surgery for this patient. <Pura Jaramillo - Last Filed: 06/14/17 08:31> Reason for Consult Date of Consultation: 06/04/17 Reason for Consultation: mass right thigh History of Present Illness: The patient is a 62 year old F I am seeing for surgical consultation in conjunction with Dr. Nataliia Marroquin. The patient presented to [facility] on 06/01/17 complaining of urinary frequency, lower abdominal discomfort, weakness and difficulty walking. Patient has history of recurrent urinary tract infections and had recently been treated with Keflex orally with persistent symptoms. She was found in the emergency department to have positive leukocyte esterase, was admitted for observation and treatment with fluids and Cipro. She notes she is feeling much better from a urinary standpoint and is no longer having the frequency. Patient is morbidly obese and has difficulties mobilizing secondary to this. Patient had mentioned today to hospitalist that she has had a lump on her right medial thigh area that has been present for some time but has significantly enlarged over the last few weeks and causes discomfort and increased difficulty with walking due to its size. She points actually to her lower pelvic pannus area when describing this. She notes that she feels like she is sitting on large ball and states she has never had anything like this before. She notes some redness and sensitivity of the skin on the right side of this area. She notes that she has had many abscesses in the past requiring surgical drainage and is concerned that this mass may be a large abscess. She denies fever or chills. White blood cell count is within normal limits. Patient is diabetic, states this is generally controlled with medication. She denies issues with wound healing in the past. General surgery was consulted for further evaluation of this area. CT scan of obtained which showed fatty stranding and skin thickening of lower pelvic pannus, possibly consistent with cellulitis. No drainable collection was identified. Also noted on CT scan was a large midline pelvic hernia containing multiple small bowel loops. Patient states she has been aware of this for many years as is her primary physician, and states they have elected to leave this along for the time being as it is asymptomatic. She denies any obstructive symptoms. Past Medical History Allergies amoxicillin Adverse Reaction (Verified 06/01/17 15:00) Other latex Adverse Reaction (Verified 06/01/17 15:00) Other Surgical History: cholecystectomy Psychiatric History: Depression WORK COUNSELOR History: No pertinent WORK COUNSELOR history Lives: With Family Smoking Status: Former smoker Tobacco Use: Non-smoker Alcohol: None Drugs: None - *Family History Paternal History Items: Diabetes Review of Systems Constitutional: Denies: Chills, Fever, Malaise, Weakness Eyes: Denies: Vision Change Cardiovascular: Denies: Chest Pain, Chest Pressure, Chest Tightness Respiratory: Denies: Cough, Shortness of Breath Gastrointestinal: Reports: Constipation. Denies: Abdominal Pain, Nausea, Vomiting Genitourinary: Reports: Dysuria Skin: Reports: Skin Changes - Physical Exam General: Alert, Oriented x3, Cooperative, No apparent distress, Well nourished HEENT: Atraumatic, Normocephalic Oral: Moist Mucosa Neck: Supple Lungs: Clear to auscultation Cardiovascular: Regular rate, Regular Rhythm Abdomen: Bowel Sounds Present, Soft, Obese - massive overhanging abdominal pannus. Lateral aspect of pelvic pannicular appendage with thickened erythematous skin, Hernia - inferior midline ventral reducible hernia, non-tender Psych/Mental Status: Normal Affect Vital Signs Temp Pulse Resp BP Pulse Ox 99.2 F H 84 18 147/67 H 97 06/04/17 08:46 06/04/17 08:50 06/04/17 08:46 06/04/17 08:46 06/04/17 08:46 Oxygen Delivery Method Room Air Laboratory Tests Past 24 Hrs 06/04/17 06/04/17 06/04/17 06:36 06:36 06:36 WBC 5.7 RBC 3.25 L Hgb 9.8 L Hct 31.0 L MCV 95.4 MCH 30.2 MCHC 31.6 L RDW 13.3 RDW Differential 44.6 H Plt Count 97 L MPV 11.3 Immature Gran % (Auto) 0.200 Neut % (Auto) 57.4 Lymph % (Auto) 31.7 [place] % (Auto) 8.1 Eos % (Auto) 1.9 Baso % (Auto) 0.7 Absolute Neuts (auto) 3.2 Absolute Lymphs (auto) 1.79 Total Counted Not Reportable ESR 76 H PT 14.0 INR 1.1 Sodium 138 Potassium 4.3 Chloride 107 Carbon Dioxide 24.0 Anion Gap 7 BUN 22 H Creatinine 0.92 Estim Creat Clear Calc 51.43 Est GFR (MDRD) Af Amer 81 Est GFR (MDRD) Non-Af 67 BUN/Creatinine Ratio 24.0 H Glucose 115 H Calcium 9.3 Phosphorus 3.0 Magnesium 1.5 L Total Bilirubin 0.50 AST 42 H ALT 31 Alkaline Phosphatase 132 H C-React Prot Ext Range 4.67 H Total Protein 7.5 Albumin 2.6 L Globulin 4.9 H Albumin/Globulin Ratio 0.5 L Triglycerides 130 Cholesterol 152 LDL Cholesterol 89 VLDL Cholesterol 26 HDL Cholesterol 37 L POC Glucose 06/04/17 06/03/17 05:51 21:15 POC Glucose 121 H 190 H Assessment/Plan I have reviewed my findings with Dr. Marroquin, who will also independently evaluate the patient Morbid obesity Sensation of enlarging right thigh mass, large pannus and pannicular appendage noted in this area CT images reviewed, images and exam findings consistent with large pannicular appendage with ? cellulitis vs chronic irritation Ventral midline abdominal hernia, [id number] elective repair
--- NOTE | 2017-06-04 11:20 | CON.PCM_ITS ---
<Tamara Marroquina - Last Filed: 06/04/17 16:52> Reason for Consult History of Present Illness: The patient is a 62 year old F [] Past Medical History Past Medical History (Chronic Problems): Chronic Problems Normochromic normocytic anemia (Chronic) Hyperlipidemia (Chronic) Umbilical hernia (Chronic) Morbid obesity (Chronic) Osteoarthritis (Chronic) Depression (Chronic) Hypertension (Chronic) Type 2 diabetes mellitus (Chronic) Allergies amoxicillin Adverse Reaction (Verified 06/01/17 15:00) Other latex Adverse Reaction (Verified 06/01/17 15:00) Other Home Medications: Ambulatory Orders Medication Instructions Recorded Citalopram [Celexa] 20 mg PO DAILY 07/10/16 Metoprolol Tartrate [Lopressor 50 mg PO BREAKFAST 07/10/16 (beta tristen)] Metoprolol Tartrate [Lopressor 100 mg PO QHS 07/10/16 (beta tristen)] Morphine Sulfate [Ms Contin] 60 mg PO BID 09/21/16 Diclofenac Potassium 50 mg PO TID PRN 06/01/17 Tizanadine Hcl 4 mg PO Q6H PRN PRN 06/01/17 Nystatin Powder [Mycostatin Powder] 1 applic TOPICAL BID #1 bottle 06/02/17 Cefadroxil 1 gm PO BID #10 tab 06/05/17 - Physical Exam Vital Signs Temp Pulse Resp BP Pulse Ox 98.5 F 72 18 125/62 H 96 06/04/17 14:53 06/04/17 14:53 06/04/17 14:53 06/04/17 14:53 06/04/17 14:53 Oxygen Delivery Method Room Air Weight: 135.6 kg Laboratory Tests Past 24 Hrs 06/04/17 06/04/17 06/04/17 06:36 06:36 06:36 WBC 5.7 RBC 3.25 L Hgb 9.8 L Hct 31.0 L MCV 95.4 MCH 30.2 MCHC 31.6 L RDW 13.3 RDW Differential 44.6 H Plt Count 97 L MPV 11.3 Immature Gran % (Auto) 0.200 Neut % (Auto) 57.4 Lymph % (Auto) 31.7 [place] % (Auto) 8.1 Eos % (Auto) 1.9 Baso % (Auto) 0.7 Absolute Neuts (auto) 3.2 Absolute Lymphs (auto) 1.79 Total Counted Not Reportable ESR 76 H PT 14.0 INR 1.1 Sodium 138 Potassium 4.3 Chloride 107 Carbon Dioxide 24.0 Anion Gap 7 BUN 22 H Creatinine 0.92 Estim Creat Clear Calc 51.43 Est GFR (MDRD) Af Amer 81 Est GFR (MDRD) Non-Af 67 BUN/Creatinine Ratio 24.0 H Glucose 115 H Calcium 9.3 Phosphorus 3.0 Magnesium 1.5 L Total Bilirubin 0.50 AST 42 H ALT 31 Alkaline Phosphatase 132 H C-React Prot Ext Range 4.67 H Total Protein 7.5 Albumin 2.6 L Globulin 4.9 H Albumin/Globulin Ratio 0.5 L Triglycerides 130 Cholesterol 152 LDL Cholesterol 89 VLDL Cholesterol 26 HDL Cholesterol 37 L POC Glucose 06/04/17 06/04/17 06/03/17 12:15 05:51 21:15 POC Glucose 193 H 121 H 190 H Assessment/Plan I have reviewed above. Seen and examined patient. I believe that this enlarging thigh mass is probable excess fibroepithelial fatty tissue. I do not believe that this is actively infected/cellulitis, the skin discoloration is probably chronic edematous/dependent changes of the skin. My review of the CT scan - I do not believe any active infection/abscess is present. Upon further discussion with the patient, she states that the appendage is essentially the same size, but has been bothering her more lately. Probably due to the dependent nature of the lesion creating difficulty with walking. She states that she has lost about 50 pounds. The appendage is hindering her from being more active. I have told patient to follow up with me as an outpatient. I will try to refer patient to either [facility] or [facility] to determine if the bariatric surgeons or plastic surgeons would be able to offer surgery for this patient. <Pura Jaramillo - Last Filed: 06/14/17 08:31> Reason for Consult Date of Consultation: 06/04/17 Reason for Consultation: mass right thigh History of Present Illness: The patient is a 62 year old F I am seeing for surgical consultation in conjunction with Dr. Nataliia Marroquin. The patient presented to [facility] on 06/01/17 complaining of urinary frequency, lower abdominal discomfort , weakness and difficulty walking. Patient has history of recurrent urinary tract infections and had recently been treated with Keflex orally with persistent symptoms. She was found in the emergency department to have positive leukocyte esterase, was admitted for observation and treatment with fluids and Cipro. She notes she is feeling much better from a urinary standpoint and is no longer having the frequency. Patient is morbidly obese and has difficulties mobilizing secondary to this. Patient had mentioned today to hospitalist that she has had a lump on her right medial thigh area that has been present for some time but has significantly enlarged over the last few weeks and causes discomfort and increased difficulty with walking due to its size. She points actually to her lower pelvic pannus area when describing this. She notes that she feels like she is sitting on large ball and states she has never had anything like this before. She notes some redness and sensitivity of the skin on the right side of this area. She notes that she has had many abscesses in the past requiring surgical drainage and is concerned that this mass may be a large abscess. She denies fever or chills. White blood cell count is within normal limits. Patient is diabetic, states this is generally controlled with medication. She denies issues with wound healing in the past. General surgery was consulted for further evaluation of this area. CT scan of obtained which showed fatty stranding and skin thickening of lower pelvic pannus, possibly consistent with cellulitis. No drainable collection was identified. Also noted on CT scan was a large midline pelvic hernia containing multiple small bowel loops. Patient states she has been aware of this for many years as is her primary physician, and states they have elected to leave this along for the time being as it is asymptomatic. She denies any obstructive symptoms. 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 Denies: Abdominal Pain, Nausea, Vomiting Genitourinary: Reports: Dysuria Skin: Reports: Skin Changes - Physical Exam General: Alert, Oriented x3, Cooperative, No apparent distress, Well nourished HEENT: Atraumatic, Normocephalic Oral: Moist Mucosa Neck: Supple Lungs: Clear to auscultation Cardiovascular: Regular rate, Regular Rhythm Abdomen: Bowel Sounds Present, Soft, Obese - massive overhanging abdominal pannus. Lateral aspect of pelvic pannicular appendage with thickened erythematous skin, Hernia - inferior midline ventral reducible hernia, non- tender Psych/Mental Status: Normal Affect Vital Signs Temp Pulse Resp BP Pulse Ox 99.2 F H 84 18 147/67 H 97 06/04/17 08:46 06/04/17 08:50 06/04/17 08:46 06/04/17 08:46 06/04/17 08:46 Oxygen Delivery Method Room Air Laboratory Tests Past 24 Hrs 06/04/17 06/04/17 06/04/17 06:36 06:36 06:36 WBC 5.7 RBC 3.25 L Hgb 9.8 L Hct 31.0 L MCV 95.4 MCH 30.2 MCHC 31.6 L RDW 13.3 RDW Differential 44.6 H Plt Count 97 L MPV 11.3 Immature Gran % (Auto) 0.200 Neut % (Auto) 57.4 Lymph % (Auto) 31.7 Wayne % (Auto) 8.1 Eos % (Auto) 1.9 Baso % (Auto) 0.7 Absolute Neuts (auto) 3.2 Absolute Lymphs (auto) 1.79 Total Counted Not Reportable ESR 76 H PT 14.0 INR 1.1 Sodium 138 Potassium 4.3 Chloride 107 Carbon Dioxide 24.0 Anion Gap 7 BUN 22 H Creatinine 0.92 Estim Creat Clear Calc 51.43 Est GFR (MDRD) Af Amer 81 Est GFR (MDRD) Non-Af 67 BUN/Creatinine Ratio 24.0 H Glucose 115 H Calcium 9.3 Phosphorus 3.0 Magnesium 1.5 L Total Bilirubin 0.50 AST 42 H ALT 31 Alkaline Phosphatase 132 H C-React Prot Ext Range 4.67 H Total Protein 7.5 Albumin 2.6 L Globulin 4.9 H Albumin/Globulin Ratio 0.5 L Triglycerides 130 Cholesterol 152 LDL Cholesterol 89 VLDL Cholesterol 26 HDL Cholesterol 37 L POC Glucose 06/04/17 06/03/17 05:51 21:15 POC Glucose 121 H 190 H Assessment/Plan I have reviewed my findings with Dr. Marroquin, who will also independently evaluate the patient Morbid obesity Sensation of enlarging right thigh mass, large pannus and pannicular appendage noted in this area CT images reviewed, images and exam findings consistent with large pannicular appendage with ? cellulitis vs chronic irritation Ventral midline abdominal hernia, [id number] elective repair
[2017-06-04 12:26] LABS: Bedside Glucose 193 mg/dL (70-110)
[2017-06-04 17:05] LABS: Bedside Glucose 115 mg/dL (70-110)
--- NOTE | 2017-06-04 20:20 | PCM.PROGNOTE ---
Subjective: Seen in consultation by Dr. Marroquin. The mass is actually a part of posterior pannus. There is a lot of stranding on the CT scan so she has been started on Ancef. she is ambulating better today. - Physical Exam General: Alert, Oriented x3, Cooperative HEENT: Atraumatic Oral: Moist Mucosa Neck: Supple, No Nuchal Rigidity Lungs: Clear to auscultation, Diminished Cardiovascular: Regular rate, Regular Rhythm, Normal S1, Normal S2, No Gallop Abdomen: Bowel Sounds Present, Soft, Non Tender, Non-Distended, Obese, - - large pannus which hangs down between her legs making it difficult to ambulate Extremities: No cyanosis Skin: No rashes Neurological: Cranial nerves II-XII grossly intact, Neuro grossly intact Vital Signs Temp Pulse Resp BP Pulse Ox 98.5 F 72 18 125/62 H 96 06/04/17 14:53 06/04/17 14:53 06/04/17 14:53 06/04/17 14:53 06/04/17 14:53 Oxygen Delivery Method Room Air Weight: 298 lb 15.149 oz Laboratory Tests Past 24 Hrs 06/04/17 06/04/17 06/04/17 06:36 06:36 06:36 WBC 5.7 RBC 3.25 L Hgb 9.8 L Hct 31.0 L MCV 95.4 MCH 30.2 MCHC 31.6 L RDW 13.3 RDW Differential 44.6 H Plt Count 97 L MPV 11.3 Immature Gran % (Auto) 0.200 Neut % (Auto) 57.4 Lymph % (Auto) 31.7 [place] % (Auto) 8.1 Eos % (Auto) 1.9 Baso % (Auto) 0.7 Absolute Neuts (auto) 3.2 Absolute Lymphs (auto) 1.79 Total Counted Not Reportable ESR 76 H PT 14.0 INR 1.1 Sodium 138 Potassium 4.3 Chloride 107 Carbon Dioxide 24.0 Anion Gap 7 BUN 22 H Creatinine 0.92 Estim Creat Clear Calc 51.43 Est GFR (MDRD) Af Amer 81 Est GFR (MDRD) Non-Af 67 BUN/Creatinine Ratio 24.0 H Glucose 115 H Calcium 9.3 Phosphorus 3.0 Magnesium 1.5 L Total Bilirubin 0.50 AST 42 H ALT 31 Alkaline Phosphatase 132 H C-React Prot Ext Range 4.67 H Total Protein 7.5 Albumin 2.6 L Globulin 4.9 H Albumin/Globulin Ratio 0.5 L Triglycerides 130 Cholesterol 152 LDL Cholesterol 89 VLDL Cholesterol 26 HDL Cholesterol 37 L POC Glucose 06/04/17 06/04/17 06/04/17 17:00 12:15 05:51 POC Glucose 115 H 193 H 121 H 06/03/17 21:15 POC Glucose 190 H Assessment/Plan Impressions 1. Debility with difficult ambulation secondary to a rapidly enlarging mass on the right medial thigh vs the pannus? Discharge has been canceled because the patient is unable to ambulate and care for herself at this time. 2. Morbid obesity 3. Diabetes mellitus type 2 with a hemoglobin A1c of 7 4. Hypertension 5. Large umbilical hernia-reducible 6. Hyperlipidemia 7. Osteoarthritis 8. Chronic thrombocytopenia - ITP? 9. Acute kidney injury -suspect prerenal 10. Chronic pain syndrome on MS Contin 60 mg every 12 hours 11. Urinary tract infection ruled out DC antibiotics because I have no source for infection and UTI has been ruled out Obtain a CT scan of the R Leg/pelvis Discussed with Dr. Marroquin and she will see the pt in consult check an ESR and a CRP CMP, CBC with diff, pt/ptt in AM change the patient to inpt
[2017-06-04] MEDS: Cefazolin 1 GM/50 ML BAG IV (21:40)
[2017-06-04] MEDS: Metoprolol Tartrate 100 MG Tablet PO (21:47)
[2017-06-04 22:31] LABS: Bedside Glucose 131 mg/dL (70-110)
[2017-06-05] VITALS (7 sets, daily range): BP systolic 122–139; BP diastolic 54–71; PULSE 71–77; RESP 15–16; TEMP 36.8–37.4; O2SAT 97–98
[2017-06-05] MEDS: Cefazolin 1 GM/50 ML BAG IV ×2 (06:16→13:53)
[2017-06-05 06:36] LABS: Bedside Glucose 144 mg/dL (70-110)
[2017-06-05] MEDS: Metoprolol Tartrate 50 MG Tablet PO (08:23)
[2017-06-05] MEDS: Menthol/Lanolin/Calamine/Znox 113 GM Tube 1 APPLIC TOPICAL (09:51)
[2017-06-05] MEDS: Nystatin Powder 15gm Bottle 1 APPLIC TOPICAL (09:52)
[2017-06-05] MEDS: Citalopram 20 MG Tablet PO (09:53)
[2017-06-05] MEDS: Enoxaparin 40 MG/0.4 ML Syringe SC (09:54)
[2017-06-05 11:31] LABS: Bedside Glucose 180 mg/dL (70-110)
--- NOTE | 2017-06-05 15:43 | PCM.DC ---
You will use the following diet at home:: Calorie/Carbohydrate Controlled (specify 1200, 1400, etc) - 1800 Your food should be the consistency of: Regular Your liquids should be the consistency of: Regular/Thin Discharge Activity: Return to Normal Activity Call your doctor if you observe: Fever of 101 or Higher, Dizziness, Chest pain Additional Instructions: You did not have a bladder infection. The urine culture had no growth. I think you have an infection of the mass between your legs which is actually a part of the belly. I have given you a prescription for Cefadroxil...take it until it is all gone. I think you may have an inflammatory arthritis. I think you should see a tape cutter. There is a group of rheumatologists in [facility] on [facility] and it is called the [facility]. The number is [phone] Allergies/Adverse Reactions: Allergies amoxicillin Adverse Reaction (Verified 06/01/17 15:00) Other latex Adverse Reaction (Verified 06/01/17 15:00) Other Medications to take at Discharge Citalopram [Celexa] 20 mg PO DAILY 07/10/16 Metoprolol Tartrate [Lopressor (beta tristen)] 50 mg PO BREAKFAST 07/10/16 Metoprolol Tartrate [Lopressor (beta tristen)] 100 mg PO QHS 07/10/16 Morphine Sulfate [Ms Contin] 60 mg PO BID 09/21/16 Diclofenac Potassium 50 mg PO TID PRN 06/01/17 Tizanadine Hcl 4 mg PO Q6H PRN PRN 06/01/17 Nystatin Powder [Mycostatin Powder] 1 applic TOPICAL BID #1 bottle 06/02/17 Cefadroxil 1 gm PO BID #10 tab 06/05/17 The following prescriptions were given: Cefadroxil 1 gm PO BID #10 tab Nystatin Powder [Mycostatin Powder] 1 applic TOPICAL BID #1 bottle Primary Care Physician: Brittany Sorenson MD [Primary Care Provider] - Please follow up with your Primary Care Physician in: in 1 week Please Follow Up With: [facility] When: call for an appt Please Follow Up With: Nataliia Marroquin MD When: 1-2 weeks Proposed Discharge Date: 06/05/17
--- NOTE | 2017-06-05 15:54 | DCINST_ITS ---
You will use the following diet at home:: Calorie/Carbohydrate Controlled ( specify 1200, 1400, etc) - 1800 Your food should be the consistency of: Regular Your liquids should be the consistency of: Regular/Thin Discharge Activity: Return to Normal Activity Call your doctor if you observe: Fever of 101 or Higher, Dizziness, Chest pain Additional Instructions: You did not have a bladder infection. The urine culture had no growth. I think you have an infection of the mass between your legs which is actually a part of the belly. I have given you a prescription for Cefadroxil...take it until it is all gone. I think you may have an inflammatory arthritis. I think you should see a tube builder. There is a group of rheumatologists in [facility] on [facility] and it is called the [facility]. The number is [phone] Allergies/Adverse Reactions: Allergies amoxicillin Adverse Reaction (Verified 06/01/17 15:00) Other latex Adverse Reaction (Verified 06/01/17 15:00) Other Medications to take at Discharge Citalopram [Celexa] 20 mg PO DAILY 07/10/16 Metoprolol Tartrate [Lopressor (beta tristen)] 50 mg PO BREAKFAST 07/10/16 Metoprolol Tartrate [Lopressor (beta tristen)] 100 mg PO QHS 07/10/16 Morphine Sulfate [Ms Contin] 60 mg PO BID 09/21/16 Diclofenac Potassium 50 mg PO TID PRN 06/01/17 Tizanadine Hcl 4 mg PO Q6H PRN PRN 06/01/17 Nystatin Powder [Mycostatin Powder] 1 applic TOPICAL BID #1 bottle 06/02/17 Cefadroxil 1 gm PO BID #10 tab 06/05/17 The following prescriptions were given: Cefadroxil 1 gm PO BID #10 tab Nystatin Powder [Mycostatin Powder] 1 applic TOPICAL BID #1 bottle Primary Care Physician: Brittany Sorenson MD [Primary Care Provider] - Please follow up with your Primary Care Physician in: in 1 week Please Follow Up With: [facility] When: call for an appt Please Follow Up With: Nataliia Marroquin MD When: 1-2 weeks Proposed Discharge Date: 06/05/17
[2017-06-05 16:46] LABS: Bedside Glucose 149 mg/dL (70-110)
--- NOTE | 2017-06-05 16:58 | PCM.DC.SUM ---
Discharge Date and Diagnosis Date of Admission: 06/01/17 Date of Discharge: 06/05/17 - Primary Discharge Diagnosis Active and Suspected Problems Acute panniculitis (Acute) Thrombocytopenia (Acute) Acute kidney injury UTI/cystitis - ruled out - Secondary Discharge Diagnosis Chronic Problems Normochromic normocytic anemia (Chronic) - etiology? Hyperlipidemia (Chronic) Umbilical hernia (Chronic) Morbid obesity (Chronic) Osteoarthritis (Chronic) Depression (Chronic) Hypertension (Chronic) Type 2 diabetes mellitus (Chronic) Hospital Course and Treatment Imaging Results: Clinical Impression(s) from Imaging Studies Pelvis CT 06/03/17 18:28 IMPRESSION: Midline lower pelvic ventral hernia containing multiple nondistended loops of small bowel. There is fatty stranding and skin thickening of a lower pelvic pannus suggestive of cellulitis. There is no evidence of inguinal mass or adenopathy. Electronically Signed: Sebastian Wyman MD at 21:33 EST , Service support , Dr. Nataliia Marroquin-[facility] general surgery Operations: None Procedures: None Summary of Care Provided: Patient is a 62-year-old female with a past medical history of diabetes mellitus type 2, hypertension, osteoarthritis, umbilical hernia, chronic thrombocytopenia, depression and morbid obesity who presented to the emergency room at [facility] on 06/01/2017 complaining of urinary frequency, lower abdominal discomfort and inability to walk. Vital signs in the emergency room were temp 98.8, heart rate 93, blood pressure 137/61, respiratory rate 18 and the pulse ox on room air was 98%. White blood cell count was normal at 7.4 with 81% neutrophils. Hemoglobin was 10.8 with normochromic normocytic indices. Platelet count was low at 135,000 and this is new for her. Creatinine was elevated at 1.35 and it was 0.88 in September 2016. Urine analysis showed 0-5 WBCs and 0-5 RBCs per high-power field with rare bacteria. Urine culture had no growth. She complained of an enlarging mass between her legs. A CT scan of the RLE/pelvis was done and showed the mass was actually a lower pelvic pannus with fatty stranding though to represent cellulitis. There was also a lower pelvic ventral hernia with multiple nondistended loops of small bowel. Consultation was obtained with Dr. Nataliia Marroquin regarding the large pannus inhibiting her ability to walk and also the ventral hernia. She was started on Ancef for suspected cellulitis. Dr. Marroquin did not feel that surgical intervention was indicated at this time. She is going to have the patient follow-up in her office and will discuss the case with a bariatric surgeon. I think she would benefit significantly from bariatric surgery because she has a very difficult time ambulating and would be more functional if the pannus was removed. she was discharged on Duricef. and instructed to follow up with Dr. Marroquin in the office within the next 2 weeks. She will follow-up with Dr. Sorenson in 1 week. Because the ESR and the CRP were so high and there is a FH of autoimmune inflammatory arthropathy in the family I suggested she consider consultation at the [facility] [place] with a helicopter mechanic. This note was generated with [employer] dictation software. It may contain incorrect words, spelling, and punctuation that were not noted in checking the note before signing. Discharge Diet: Low fat/ Low Cholesterol, 2200 Calorie Control Diet, 2000 mg Sodium Diet Discharge Activity: Return to Normal Activity Call your doctor if you observe: Fever of 101 or Higher, Dizziness, Chest pain Home Medications: Medications to take at Discharge Citalopram [Celexa] 20 mg PO DAILY 07/10/16 Metoprolol Tartrate [Lopressor (beta tristen)] 50 mg PO BREAKFAST 07/10/16 Metoprolol Tartrate [Lopressor (beta tristen)] 100 mg PO QHS 07/10/16 Morphine Sulfate [Ms Contin] 60 mg PO BID 09/21/16 Diclofenac Potassium 50 mg PO TID PRN 06/01/17 Tizanadine Hcl 4 mg PO Q6H PRN PRN 06/01/17 Nystatin Powder [Mycostatin Powder] 1 applic TOPICAL BID #1 bottle 06/02/17 Cefadroxil 1 gm PO BID #10 tab 06/05/17 Following Prescrptions Were Given to Patient: Cefadroxil 1 gm PO BID #10 tab Nystatin Powder [Mycostatin Powder] 1 applic TOPICAL BID #1 bottle Primary Care Physician: Brittany Sorenson MD [Primary Care Provider] - Please follow up with your Primary Care Physician in: in 1 week Please Follow Up With: [facility] When: call for an appt Please Follow Up With: Nataliia Marroquin MD When: 1-2 weeks Disposition: Home Meaningful Use Info Meaningful Use Diagnoses (Choose all that apply): None applicable Code Visit Inpatient E&M: 98677 Disch Hosp
--- NOTE | 2017-06-05 17:03 | DS.PCM_ITS ---
Discharge Date and Diagnosis Date of Admission: 06/01/17 Date of Discharge: 06/05/17 - Primary Discharge Diagnosis Active and Suspected Problems Acute panniculitis (Acute) Thrombocytopenia (Acute) Acute kidney injury UTI/cystitis - ruled out - Secondary Discharge Diagnosis Chronic Problems Normochromic normocytic anemia (Chronic) - etiology? Hyperlipidemia (Chronic) Umbilical hernia (Chronic) Morbid obesity (Chronic) Osteoarthritis (Chronic) Depression (Chronic) Hypertension (Chronic) Type 2 diabetes mellitus (Chronic) Hospital Course and Treatment Imaging Results: Clinical Impression(s) from Imaging Studies Pelvis CT 06/03/17 18:28 IMPRESSION: Midline lower pelvic ventral hernia containing multiple nondistended loops of small bowel. There is fatty stranding and skin thickening of a lower pelvic pannus suggestive of cellulitis. There is no evidence of inguinal mass or adenopathy. Electronically Signed: Sebastian Wyman MD at 21:33 EST , Service support , Dr. Nataliia Marroquin-[facility] general surgery Operations: None Procedures: None Summary of Care Provided: Patient is a 62-year-old female with a past medical history of diabetes mellitus type 2, hypertension, osteoarthritis, umbilical hernia, chronic thrombocytopenia, depression and morbid obesity who presented to the emergency room at [facility] on 06/01/2017 complaining of urinary frequency , lower abdominal discomfort and inability to walk. Vital signs in the emergency room were temp 98.8, heart rate 93, blood pressure 137/61, respiratory rate 18 and the pulse ox on room air was 98%. White blood cell count was normal at 7.4 with 81% neutrophils. Hemoglobin was 10.8 with normochromic normocytic indices. Platelet count was low at 135,000 and this is new for her. Creatinine was elevated at 1.35 and it was 0.88 in September 2016. Urine analysis showed 0-5 WBCs and 0-5 RBCs per high-power field with rare bacteria. Urine culture had no growth. She complained of an enlarging mass between her legs. A CT scan of the RLE/pelvis was done and showed the mass was actually a lower pelvic pannus with fatty stranding though to represent cellulitis. There was also a lower pelvic ventral hernia with multiple nondistended loops of small bowel. Consultation was obtained with Dr. Nataliia Marroquin regarding the large pannus inhibiting her ability to walk and also the ventral hernia. She was started on Ancef for suspected cellulitis. Dr. Marroquin did not feel that surgical intervention was indicated at this time. She is going to have the patient follow-up in her office and will discuss the case with a bariatric surgeon. I think she would benefit significantly from bariatric surgery because she has a very difficult time ambulating and would be more functional if the pannus was removed. she was discharged on Duricef. and instructed to follow up with Dr. Marroquin in the office within the next 2 weeks. She will follow-up with Dr. Sorenson in 1 week. Because the ESR and the CRP were so high and there is a FH of autoimmune inflammatory arthropathy in the family I suggested she consider consultation at the [place] with a customer professional. This note was generated with [employer] dictation software. It may contain incorrect words, spelling, and punctuation that were not noted in checking the note before signing. Discharge Diet: Low fat/ Low Cholesterol, 2200 Calorie Control Diet, 2000 mg Sodium Diet Discharge Activity: Return to Normal Activity Call your doctor if you observe: Fever of 101 or Higher, Dizziness, Chest pain Home Medications: Medications to take at Discharge Citalopram [Celexa] 20 mg PO DAILY 07/10/16 Metoprolol Tartrate [Lopressor (beta tristen)] 50 mg PO BREAKFAST 07/10/16 Metoprolol Tartrate [Lopressor (beta tristen)] 100 mg PO QHS 07/10/16 Morphine Sulfate [Ms Contin] 60 mg PO BID 09/21/16 Diclofenac Potassium 50 mg PO TID PRN 06/01/17 Tizanadine Hcl 4 mg PO Q6H PRN PRN 06/01/17 Nystatin Powder [Mycostatin Powder] 1 applic TOPICAL BID #1 bottle 06/02/17 Cefadroxil 1 gm PO BID #10 tab 06/05/17 Following Prescrptions Were Given to Patient: Cefadroxil 1 gm PO BID #10 tab Nystatin Powder [Mycostatin Powder] 1 applic TOPICAL BID #1 bottle Primary Care Physician: Brittany Sorenson MD [Primary Care Provider] - Please follow up with your Primary Care Physician in: in 1 week Please Follow Up With: [facility] When: call for an appt Please Follow Up With: Nataliia Marroquin MD When: 1-2 weeks Disposition: Home Meaningful Use Info Meaningful Use Diagnoses (Choose all that apply): None applicable Code Visit Inpatient E&M: 91039 Disch Hosp
== END 2017-06-05 18:28 | disposition home or self-care (01) | DRG 607 ==
LOC: ED 18:23 → MS3 18:47
PROVIDERS: Admitting Provider Internal Medicine; Emergency Provider Emergency Medicine; Family Provider Internal Medicine; PCP Internal Medicine; Visit Provider Internal Medicine
DX: M79.3 Panniculitis, unspecified (principal); N17.9 Acute kidney failure, unspecified; D69.6 Thrombocytopenia, unspecified; E66.01 Morbid (severe) obesity due to excess calories; Z68.43 Body mass index [BMI] 50.0-59.9, adult; E11.9 Type 2 diabetes mellitus without complications; D64.9 Anemia, unspecified; E78.5 Hyperlipidemia, unspecified; F32.9 Major depressive disorder, single episode, unspecified; I10 Essential (primary) hypertension; Z87.891 Personal history of nicotine dependence; M19.90 Unspecified osteoarthritis, unspecified site; Z87.440 Personal history of urinary (tract) infections; G89.4 Chronic pain syndrome; K42.9 Umbilical hernia without obstruction or gangrene
CPT/HCPCS: 36415; 72192; 80048; 80053; 80061; 81001; 82962; 83036; 83540; 83550; 83735; 84100; 85025; 85610; 85652; 86140; 87086; 97110; 97116; 97162; 97165; 97530; 97535; 97802; 99284; J7030

== ENCOUNTER 2017-07-22 08:22 | Inpatient (IN) | payer MEDICARE, SELFPAY ==
[2017-07-22] VITALS (8 sets, daily range): BP systolic 103–161; BP diastolic 48–87; PULSE 103–126; RESP 16–18; TEMP 36.6–37.2; O2SAT 95–100; BMI 51.2; BMI 52.0; BMI 52.1
[2017-07-22] MEDS: 0.9% Normal Saline 1,000 ML 1000 ML IV (09:36)
[2017-07-22] MEDS: HYDROmorphone 1 MG/ML Syringe IV (09:36)
[2017-07-22] MEDS: Ondansetron 4 MG/2 ML Vial IV (09:36)
--- NOTE | 2017-07-22 09:56 | ED.VISSUMM ---
- ER Visit Summary Date of Service: 07/22/17 Chief Complaint: Back pain History of Present Illness: The patient is a [address] Sorenson. She has a history of chronic back pain and is on MS Contin for this. She reports that worsened 3-4 weeks ago. She describes as a sharp, aching pain is 10 out of 10 severity. Is worsened with movement. She is taking her MS Contin without relief. States that it radiates down into both buttocks. She denies any numbness in her groin. No problems with her bowels or her bladder. She reports that she does have paresthesias in her right foot. However, she also reports that she has a history of diabetic neuropathy. Review of systems: General: No fever, chills, cold sweats. Cardiovascular: No chest pain, palpitations. Respiratory: No cough, shortness of breath, dyspnea on exertion. Gastrointestinal: No abdominal pain, nausea, vomiting, diarrhea, melena, or hematochezia. Genitourinary: No dysuria, frequency, hematuria. Skin: No rash. Neuro: No weakness. Physical Examination: Vitals: Stable. Afebrile. General: A&O x 3. NAD. Cardiovascular exam: Regular rate and rhythm, no murmur, rub or gallop. Respiratory exam: Clear to auscultation bilaterally. No wheezes or stridor. Abdominal exam: Soft, nontender, nondistended, normal bowel sounds. No peritoneal signs. There is an obvious ventral hernia in the suprapubic region. This is nontender. She has a large pannus that has an approximately 1 similar by 5 cm ulcer on the left side of this. There is no erythema, warmth, or tenderness to suggest infection here. Back: Diffuse moderate tenderness to palpation over the lumbar spine and the paraspinous musculature in the lumbar region. No point tenderness. Negative straight leg bilaterally. 5/5 DF, PF, EHL bilaterally. Normal sensation to light touch throughout. Skin: She has a scabbed ulcer to the left buttock and a healing ulcer to the right buttock. There is no surrounding erythema, warmth, odor, or drainage to suggest infection. Extremity: No clubbing, cyanosis, or edema. Test results: CBC is remarkable for an H&H 11.0 and 34.6, platelets 140, segmented neutrophils 78, lymphocytes of 13. Chem-7 is more for glucose 179 BUN 21. LS spine x-rays show degenerative changes. Emergency Department Course and Treatment: Patient had an IV placed. She is given a milligram of Dilaudid IV and Zofran. She is resting comfortably. She was seen by case management. It is clear that the patient is unable to care for herself. She cannot ambulate. Treatment Plan: The patient was discussed with Dr. King. She will be admitted to the hospital for further evaluation and treatment. Disposition: Admitted in stable condition. Impression: 1. Chronic back pain. 2. Inability to ambulate. This note was generated with [employer] dictation software. It may contain incorrect words, spelling, and punctuation that were not noted in review of the chart prior to signing ED Disposition - Plan for ED Patient: Chief Complaint: Back Referrals: Brittany Sorenson MD [Primary Care Provider] -
--- NOTE | 2017-07-22 10:13 | ED.RN ---
Verbalized to case Mgt she is unable to ambulate.
--- NOTE | 2017-07-22 10:29 | CM.ED ---
Patient states she is unable to ambulate and is agreeable to transitional group home placement. Sister, Melinda Joiner, tells CM that patient is completely immobile and has had to call the squad three times in the past week. Melinda states the patient slides out of her chair and onto the floor to excrete stool and urine because she is unable to get to the commode. Melinda also states that the patient is noncompliant with her medications and takes her meds too frequently for back pain. Care team updated. Labs will be drawn. CM/SW will continue to follow for safe discharge planning.
[2017-07-22 10:56] LABS: Absolute Lymphocyte Count 1.22 X10^3/ul (0.83-4.51); Absolute Neutrophil Count 7.4 X10^3/uL (2.0-7.7); Basophil# 0.01 X10^3/uL; Basophil% 0.1 % (0-1); Eosinophil# 0.05 X10^3/uL; Eosinophils% 0.5 % (0-5); Hematocrit 34.6 % (37-47); Lymphocyte # 1.22 X10^3/ul (4.0); Lymphocyte % 12.8 % (19-41); Mean Corp Hgb Conc 31.8 g/gl (32-36); Mean Corpuscular Hgb 29.1 pg (27.0-32.0); Mean Corpuscular Volume 91.5 fL (81-99); Monocyte# 0.84 X10^3/uL; Monocyte% 8.8 % (0-10); Neutrophil # 7.43 X10^3/uL (2.7-7.7); Neutrophil % 77.7 % (47-70); POSITIVE COUNT NO; POSITIVE DIFFERENTIAL NO; POSITIVE MORPHOLOGY NO; Platelet Count 140 K/mm3 (150-450); RBC Distribution Width CV 14.2 % (11.6-14.6); RBC Distribution Width SD 46.8 fl (35.1-43.9); Red Blood Count 3.78 M/mm3 (4.2-5.4); White Blood Count 9.6 K/mm3 (4.4-11.0)
[2017-07-22 11:08] LABS: Anion Gap 5 (5-15); BUN 21 mg/dL (7-18); Calcium,Total 9.2 mg/dL (8.5-10.1); Chloride 102 mmol/L (98-107); Creatinine, Serum 0.75 mg/dL (0.55-1.02); EST Glomerular Filtration Rate 84 mL/min (>60); Est Glom Filt Rate - Afr Amer 101 mL/min (>60); Estimated Creatinine Clearance 63.09 ml/min; Glucose 179 mg/dL (74-106); Potassium 4.4 mmol/L (3.5-5.1); Sodium Level 138 mmol/L (136-145)
--- NOTE | 2017-07-22 11:42 | CM.ED ---
Case discussed with social work therapist, Flores Wu. SW will follow-up with patient to apply for correction medicaid. Patient updated on plan and remains agreeable and thankful. Family, in waiting room, updated. Contact: Melinda Marisel (sister) [phone]
--- NOTE | 2017-07-22 12:10 | RAD_ITS ---
STUDY: X-RAY - LUMBAR SPINE REASON FOR EXAM: Female, 62 years old. Low back pain. TECHNIQUE: 3 view(s) of the lumbar spine were obtained. COMPARISON: None FINDINGS: There is an exaggerated lumbar lordosis. There is no substantial scoliosis. There is a normal alignment of the vertebrae. There is multilevel endplate spondylosis of the lumbar vertebrae. There is multi-level degenerative disc disease with multi-level disc space narrowing. Facet joint osteoarthritis. The soft tissue structures are unremarkable. RAD/Lumbar Spine 2 or 3 Views IMPRESSION: Degenerative changes of the spine, as detailed above. Exaggerated lordosis. Electronically Signed: Mack Balbuena MD at 12:46 EDT Tel [phone], Service support ,
--- NOTE | 2017-07-22 15:16 | PCM.HP.STD ---
Problem List (1) Thrombocytopenia Status: Chronic (2) Normochromic normocytic anemia Status: Chronic (3) Acute panniculitis Status: Chronic (4) Hyperlipidemia Status: Chronic (5) Umbilical hernia Status: Chronic (6) Morbid obesity Status: Chronic (7) Osteoarthritis Status: Chronic (8) Depression Status: Chronic Qualifiers: (9) Hypertension Status: Chronic Qualifiers: (10) Type 2 diabetes mellitus Status: Chronic History of Present Illness Date of Admission: 07/22/17 Chief Complaint: Back pain, weakness. The patient is a 62 year old F who presents to the emergency room with acute on chronic back pain and weakness. She states she was having difficulty getting her medications refilled and 2 days ago after she did end up getting them refilled, thinks she may have taken her medications wrong which cause her to be very drowsy. Specifically, she mentions MS Contin and gabapentin. She states she does not remember but she must have fallen out of her chair onto the floor and was unable to get herself up. Family found her this morning and called EMS. She states her back pain has been worsening for the past few weeks and she has radiating pain down both hips and stabbing pain in her buttocks. She states she has discussed seeing pain management with her primary care physician due to chronic back pain. Patient states she is in the process of undergoing bariatric surgery with the [facility] and will have a hernia repair during the procedure. She states she has lost approximately 100 pounds in preparation for surgery. She has a past medical history of chronic thrombocytopenia, chronic normochromic normocytic anemia, panniculitis, hyperlipidemia, umbilical hernia, morbid obesity, osteoarthritis, depression, hypertension, type 2 diabetes mellitus. Patient states she has chronic numbness and tingling of lower extremities due to diabetic neuropathy. She denies other associated symptoms or complaints. She is hoping to get her pain well controlled so she can continue weight loss prior to surgery. Discussed with patient short-term rehab versus SNF and she states she is willing if necessary. Past Medical History Past Medical History (Chronic Problems): Chronic Problems Thrombocytopenia (Chronic) Normochromic normocytic anemia (Chronic) Acute panniculitis (Chronic) Hyperlipidemia (Chronic) Umbilical hernia (Chronic) Morbid obesity (Chronic) Osteoarthritis (Chronic) Depression (Chronic) Hypertension (Chronic) Type 2 diabetes mellitus (Chronic) Allergies amoxicillin Adverse Reaction (Verified 07/22/17 08:26) Other latex Adverse Reaction (Verified 07/22/17 08:26) Other Home Medications: Ambulatory Orders Medication Instructions Recorded Citalopram [Celexa] 20 mg PO DAILY 07/10/16 Metoprolol Tartrate [Lopressor 50 mg PO BREAKFAST 07/10/16 (beta tristen)] Metoprolol Tartrate [Lopressor 100 mg PO QHS 07/10/16 (beta tristen)] Morphine Sulfate [Ms Contin] 60 mg PO BID 09/21/16 Nystatin Powder [Mycostatin Powder] 1 applic TOPICAL BID #1 bottle 06/02/17 Gabapentin [Neurontin] 300 mg PO BID 07/22/17 Surgical History: cholecystectomy Psychiatric History: Depression PET CARE ASSOCIATE History: No pertinent PET CARE ASSOCIATE history Lives: Alone Smoking Status: Never smoker Alcohol: None Drugs: None - *Family History Paternal History Items: Diabetes Maternal History Items: No pertinent history Review of Systems Constitutional: Reports: Weight Change - Purposeful weight loss. Denies: Chills, Fever HEENT: Denies: Head Aches, Sinus Congestion, Sinus Drainage Cardiovascular: Denies: Chest Pain, Palpitations, Syncope Respiratory: Denies: Cough, Shortness of breath at rest, Sputum production Gastrointestinal: Reports: Nausea. Denies: Abdominal Pain, Vomiting Genitourinary: Denies: Dysuria Musculoskeletal: Reports: Back Pain. Denies: Joint Pain, Joint Tenderness Skin: Reports: - - Chronic redness under abdominal folds. Denies: Rash, Wounds Neurological: Reports: - - Chronic numbness, tingling bilateral lower extremities. Denies: Balance problems, Blurred vision, Change in Speech, Slurred speech, Focal weakness Psychiatric: Reports: Depression Hematologic/ Lymphatic: Denies: Easy Bruising, Easy Bleeding VTE Information - Inpt Only VTE Present on Admission: No VTE Mechan Device Prophylaxis: None VTE Pharm Prophylaxis ordered?: Yes - Physical Exam General: Alert, Oriented x3, Cooperative, No apparent distress HEENT: Atraumatic, PERRLA, EOMI, Normocephalic Neck: Supple, No JVD, Negative Carotid Bruits Lungs: Clear to auscultation, Diminished Cardiovascular: Regular rate, Regular Rhythm, Normal S1, Normal S2, No murmurs Abdomen: Bowel Sounds Present, Soft, Non Tender, Non-Distended, Obese Extremities: No clubbing, No cyanosis, No edema Skin: - - Erythema, foul smell under abdominal folds/pannus Musculoskeletal: No Tenderness to Palpation of Joints or Extremities Neurological: Cranial nerves II-XII grossly intact Psych/Mental Status: Normal Affect, Appropriate Vital Signs Temp Pulse Resp BP Pulse Ox 97.9 F 103 H 18 129/66 H 98 07/22/17 14:01 07/22/17 14:52 07/22/17 14:01 07/22/17 14:01 07/22/17 14:01 Oxygen Delivery Method Room Air Weight: 129.2 kg Body Mass Index (BMI) 52.0 Assessment/Plan 1. Acute on chronic back pain with associated debility-underlying osteoarthritis. Continue home MS Contin regimen. Patient states she is also on gabapentin which is not listed on her home medication regimen. Need to confirm. Continue Voltaren and Medrol Dosepak. PT/OT. Case management consult for possible SNF/Rehab placement. 2. Morbid obesity-history of panniculitis. Patient has erythema and yeast under abdominal folds and pannus area. Nystatin powder. Nutrition consult. Patient is in the process of undergoing bariatric surgery and correction of umbilical hernia. Calorie controlled diet. 3. Type 2 diabetes mellitus-associated chronic diabetic neuropathy bilateral lower extremities. Not on home regimen. Hemoglobin A1c May 2017 7%. Accu-Cheks before meals at bedtime with sliding scale insulin. 4. Chronic thrombocytopenia-stable, monitor CBC. 5. Chronic normochromic normocytic anemia-stable. Baseline hemoglobin 8-9. Hemoglobin currently 11. Monitor CBC. 6. Hyperlipidemia-not on statin. 7. Hypertension-stable, continue home metoprolol regimen. 8. Depression-continue home regimen of Celexa. DVT prophylaxis-heparin subcu. This patient was seen by Lisa Conti NP-[facility] under the supervision of Dr. King.
--- NOTE | 2017-07-22 15:27 | HP.PCM_ITS ---
Problem List (1) Thrombocytopenia Status: Chronic (2) Normochromic normocytic anemia Status: Chronic (3) Acute panniculitis Status: Chronic (4) Hyperlipidemia Status: Chronic (5) Umbilical hernia Status: Chronic (6) Morbid obesity Status: Chronic (7) Osteoarthritis Status: Chronic (8) Depression Status: Chronic Qualifiers: (9) Hypertension Status: Chronic Qualifiers: (10) Type 2 diabetes mellitus Status: Chronic History of Present Illness Date of Admission: 07/22/17 Chief Complaint: Back pain, weakness. The patient is a 62 year old F who presents to the emergency room with acute on chronic back pain and weakness. She states she was having difficulty getting her medications refilled and 2 days ago after she did end up getting them refilled, thinks she may have taken her medications wrong which cause her to be very drowsy. Specifically, she mentions MS Contin and gabapentin. She states she does not remember but she must have fallen out of her chair onto the floor and was unable to get herself up. Family found her this morning and called EMS. She states her back pain has been worsening for the past few weeks and she has radiating pain down both hips and stabbing pain in her buttocks. She states she has discussed seeing pain management with her primary care physician due to chronic back pain. Patient states she is in the process of undergoing bariatric surgery with the [facility] and will have a hernia repair during the procedure. She states she has lost approximately 100 pounds in preparation for surgery. She has a past medical history of chronic thrombocytopenia, chronic normochromic normocytic anemia, panniculitis, hyperlipidemia, umbilical hernia, morbid obesity, osteoarthritis, depression, hypertension, type 2 diabetes mellitus. Patient states she has chronic numbness and tingling of lower extremities due to diabetic neuropathy. She denies other associated symptoms or complaints. She is hoping to get her pain well controlled so she can continue weight loss prior to surgery. Discussed with patient short-term rehab versus SNF and she states she is willing if necessary. Past Medical History Past Medical History (Chronic Problems): Chronic Problems Thrombocytopenia (Chronic) Normochromic normocytic anemia (Chronic) Acute panniculitis (Chronic) Hyperlipidemia (Chronic) Umbilical hernia (Chronic) Morbid obesity (Chronic) Osteoarthritis (Chronic) Depression (Chronic) Hypertension (Chronic) Type 2 diabetes mellitus (Chronic) Allergies amoxicillin Adverse Reaction (Verified 07/22/17 08:26) Other latex Adverse Reaction (Verified 07/22/17 08:26) Other Home Medications: Ambulatory Orders Medication Instructions Recorded Citalopram [Celexa] 20 mg PO DAILY 07/10/16 Metoprolol Tartrate [Lopressor 50 mg PO BREAKFAST 07/10/16 (beta tristen)] Metoprolol Tartrate [Lopressor 100 mg PO QHS 07/10/16 (beta tristen)] Morphine Sulfate [Ms Contin] 60 mg PO BID 09/21/16 Nystatin Powder [Mycostatin Powder] 1 applic TOPICAL BID #1 bottle 06/02/17 Gabapentin [Neurontin] 300 mg PO BID 07/22/17 Surgical History: cholecystectomy Psychiatric History: Depression TERRESTRIAL ECOLOGIST History: No pertinent TERRESTRIAL ECOLOGIST history Lives: Alone Smoking Status: Never smoker Alcohol: None Drugs: None - *Family History Paternal History Items: Diabetes Maternal History Items: No pertinent history Review of Systems Constitutional: Reports: Weight Change - Purposeful weight loss. Denies: Chills , Fever HEENT: Denies: Head Aches, Sinus Congestion, Sinus Drainage Cardiovascular: Denies: Chest Pain, Palpitations, Syncope Respiratory: Denies: Cough, Shortness of breath at rest, Sputum production Gastrointestinal: Reports: Nausea. Denies: Abdominal Pain, Vomiting Genitourinary: Denies: Dysuria Musculoskeletal: Reports: Back Pain. Denies: Joint Pain, Joint Tenderness Skin: Reports: - - Chronic redness under abdominal folds. Denies: Rash, Wounds Neurological: Reports: - - Chronic numbness, tingling bilateral lower extremities. Denies: Balance problems, Blurred vision, Change in Speech, Slurred speech, Focal weakness Psychiatric: Reports: Depression Hematologic/ Lymphatic: Denies: Easy Bruising, Easy Bleeding VTE Information - Inpt Only VTE Present on Admission: No VTE Mechan Device Prophylaxis: None VTE Pharm Prophylaxis ordered?: Yes - Physical Exam General: Alert, Oriented x3, Cooperative, No apparent distress HEENT: Atraumatic, PERRLA, EOMI, Normocephalic Neck: Supple, No JVD, Negative Carotid Bruits Lungs: Clear to auscultation, Diminished Cardiovascular: Regular rate, Regular Rhythm, Normal S1, Normal S2, No murmurs Abdomen: Bowel Sounds Present, Soft, Non Tender, Non-Distended, Obese Extremities: No clubbing, No cyanosis, No edema Skin: - - Erythema, foul smell under abdominal folds/pannus Musculoskeletal: No Tenderness to Palpation of Joints or Extremities Neurological: Cranial nerves II-XII grossly intact Psych/Mental Status: Normal Affect, Appropriate Vital Signs Temp Pulse Resp BP Pulse Ox 97.9 F 103 H 18 129/66 H 98 07/22/17 14:01 07/22/17 14:52 07/22/17 14:01 07/22/17 14:01 07/22/17 14:01 Oxygen Delivery Method Room Air Weight: 129.2 kg Body Mass Index (BMI) 52.0 Assessment/Plan 1. Acute on chronic back pain with associated debility-underlying osteoarthritis. Continue home MS Contin regimen. Patient states she is also on gabapentin which is not listed on her home medication regimen. Need to confirm. Continue Voltaren and Medrol Dosepak. PT/OT. Case management consult for possible SNF/Rehab placement. 2. Morbid obesity-history of panniculitis. Patient has erythema and yeast under abdominal folds and pannus area. Nystatin powder. Nutrition consult. Patient is in the process of undergoing bariatric surgery and correction of umbilical hernia. Calorie controlled diet. 3. Type 2 diabetes mellitus-associated chronic diabetic neuropathy bilateral lower extremities. Not on home regimen. Hemoglobin A1c May 2017 7%. Accu- Cheks before meals at bedtime with sliding scale insulin. 4. Chronic thrombocytopenia-stable, monitor CBC. 5. Chronic normochromic normocytic anemia-stable. Baseline hemoglobin 8-9. Hemoglobin currently 11. Monitor CBC. 6. Hyperlipidemia-not on statin. 7. Hypertension-stable, continue home metoprolol regimen. 8. Depression-continue home regimen of Celexa. DVT prophylaxis-heparin subcu. This patient was seen by Lisa Conti NP-[facility] under the supervision of Dr. King.
[2017-07-22] MEDS: Heparin Injection 5,000 UNITS/ML Syringe 5000 UNITS SC ×2 (18:20→21:31)
[2017-07-22] MEDS: MethylPREDNISolone DosePak 4 MG BOX PO ×2 (18:20→21:31)
[2017-07-22] MEDS: Nystatin Powder 15gm Bottle 1 APPLIC TOPICAL (21:30)
[2017-07-22] MEDS: Metoprolol Tartrate 100 MG Tablet PO (21:31)
[2017-07-22] MEDS: Menthol/Lanolin/Calamine/Znox 113 GM Tube 1 APPLIC TOPICAL (21:32)
[2017-07-22] MEDS: 0.9% NaCl Peripheral Flush Adult/Peds IV (21:36)
[2017-07-23 02:00] VITALS: BP 124/70; PULSE 90; RESP 20; TEMP 37.2; O2SAT 96
[2017-07-23] MEDS: Heparin Injection 5,000 UNITS/ML Syringe 5000 UNITS SC ×3 (05:22→22:18)
[2017-07-23 08:00] VITALS: BP 145/75; PULSE 80; RESP 18; TEMP 37.7; O2SAT 96
[2017-07-23 08:09] VITALS: PULSE 81
[2017-07-23] MEDS: MethylPREDNISolone DosePak 4 MG BOX PO ×4 (08:09→22:17)
[2017-07-23] MEDS: Metoprolol Tartrate 50 MG Tablet PO (08:09)
--- NOTE | 2017-07-23 08:43 | NURSING ---
wound photo: bilateral buttocks
--- NOTE | 2017-07-23 08:44 | NURSING ---
wound photo: anterior pubic area
[2017-07-23] MEDS: Nystatin Powder 15gm Bottle 1 APPLIC TOPICAL ×2 (09:56→22:19)
[2017-07-23] MEDS: Citalopram 20 MG Tablet PO (09:56)
[2017-07-23] MEDS: Menthol/Lanolin/Calamine/Znox 113 GM Tube 1 APPLIC TOPICAL (09:57)
[2017-07-23 11:35] LABS: Bedside Glucose 320 mg/dL (70-110)
--- NOTE | 2017-07-23 13:22 | PCM.PROGNOTE ---
Subjective: Patient seen and examined. No acute events overnight. Patient states back pain is improved. Has not yet been out of bed. Denies other complaints. - Physical Exam General: Alert, Oriented x3, Cooperative, No apparent distress HEENT: Atraumatic, PERRLA, EOMI, Normocephalic Neck: Supple, No JVD, Negative Carotid Bruits Lungs: Clear to auscultation, Diminished Cardiovascular: Regular rate, Regular Rhythm, Normal S1, Normal S2, No murmurs Abdomen: Bowel Sounds Present, Soft, Non Tender, Non-Distended, Obese Extremities: No clubbing, No cyanosis, No edema, Capillary Refill Less than 3 Seconds Skin: - - Erythema abdominal folds and anterior pelvis with open area of the anterior pelvis. Bilateral buttocks with erythema and ecchymosis, areas of previous ulcerations. Musculoskeletal: No Tenderness to Palpation of Joints or Extremities Neurological: Cranial nerves II-XII grossly intact, Neuro grossly intact Psych/Mental Status: Normal Affect, Appropriate Vital Signs Temp Pulse Resp BP Pulse Ox 99.9 F H 81 18 145/75 H 96 07/23/17 08:00 07/23/17 08:09 07/23/17 08:00 07/23/17 08:00 07/23/17 08:00 Oxygen Delivery Method Room Air Weight: 129.2 kg Body Mass Index (BMI) 52.0 Intake and Output for Last 24 Hours 07/21/17 07/22/17 07/23/17 23:59 23:59 23:59 Intake Total 300 / 300 Output Total 200 / 200 Balance -200 / -200 300 / 300 POC Glucose 07/23/17 11:22 POC Glucose 320 H Medical Necessity - Tobacco Use Smoking Status: Never smoker Assessment/Plan 1. Acute on chronic back pain with associated debility-underlying osteoarthritis. Continue home MS Contin regimen and gabapentin. Continue Voltaren and Medrol Dosepak. PT/OT. Case management consult for anticipated SNF/Rehab placement. 2. Morbid obesity-history of panniculitis. Patient has erythema and yeast under abdominal folds and pannus area, erythema and ecchymosis bilateral buttocks with appearance of old pressure ulcers. Nystatin powder. Nutrition consult. Patient is in the process of undergoing bariatric surgery and correction of umbilical hernia. Calorie controlled diet. Wound nurse consult. 3. Type 2 diabetes mellitus-associated chronic diabetic neuropathy bilateral lower extremities. Not on home regimen. Hemoglobin A1c May 2017 7%. Accu-Cheks before meals at bedtime with sliding scale insulin. 4. Chronic thrombocytopenia-stable, monitor CBC. 5. Chronic normochromic normocytic anemia-stable. Baseline hemoglobin 8-9. Hemoglobin currently 11. Monitor CBC. 6. Hyperlipidemia-not on statin. 7. Hypertension-stable, continue home metoprolol regimen. 8. Depression-continue home regimen of Celexa. DVT prophylaxis-heparin subcu. Discharge planning: Anticipate discharge to SNF pending pre-CERT. This patient was seen by LEW Piña under the supervision of Dr. King.
--- NOTE | 2017-07-23 13:29 | PN_ITS ---
Subjective: Patient seen and examined. No acute events overnight. Patient states back pain is improved. Has not yet been out of bed. Denies other complaints. - Physical Exam General: Alert, Oriented x3, Cooperative, No apparent distress HEENT: Atraumatic, PERRLA, EOMI, Normocephalic Neck: Supple, No JVD, Negative Carotid Bruits Lungs: Clear to auscultation, Diminished Cardiovascular: Regular rate, Regular Rhythm, Normal S1, Normal S2, No murmurs Abdomen: Bowel Sounds Present, Soft, Non Tender, Non-Distended, Obese Extremities: No clubbing, No cyanosis, No edema, Capillary Refill Less than 3 Seconds Skin: - - Erythema abdominal folds and anterior pelvis with open area of the anterior pelvis. Bilateral buttocks with erythema and ecchymosis, areas of previous ulcerations. Musculoskeletal: No Tenderness to Palpation of Joints or Extremities Neurological: Cranial nerves II-XII grossly intact, Neuro grossly intact Psych/Mental Status: Normal Affect, Appropriate Vital Signs Temp Pulse Resp BP Pulse Ox 99.9 F H 81 18 145/75 H 96 07/23/17 08:00 07/23/17 08:09 07/23/17 08:00 07/23/17 08:00 07/23/17 08:00 Oxygen Delivery Method Room Air Weight: 129.2 kg Body Mass Index (BMI) 52.0 Intake and Output for Last 24 Hours 07/21/17 07/22/17 07/23/17 23:59 23:59 23:59 Intake Total 300 / 300 Output Total 200 / 200 Balance -200 / -200 300 / 300 POC Glucose 07/23/17 11:22 POC Glucose 320 H Medical Necessity - Tobacco Use Smoking Status: Never smoker Assessment/Plan 1. Acute on chronic back pain with associated debility-underlying osteoarthritis. Continue home MS Contin regimen and gabapentin. Continue Voltaren and Medrol Dosepak. PT/OT. Case management consult for anticipated SNF /Rehab placement. 2. Morbid obesity-history of panniculitis. Patient has erythema and yeast under abdominal folds and pannus area, erythema and ecchymosis bilateral buttocks with appearance of old pressure ulcers. Nystatin powder. Nutrition consult. Patient is in the process of undergoing bariatric surgery and correction of umbilical hernia. Calorie controlled diet. Wound nurse consult. 3. Type 2 diabetes mellitus-associated chronic diabetic neuropathy bilateral lower extremities. Not on home regimen. Hemoglobin A1c May 2017 7%. Accu- Cheks before meals at bedtime with sliding scale insulin. 4. Chronic thrombocytopenia-stable, monitor CBC. 5. Chronic normochromic normocytic anemia-stable. Baseline hemoglobin 8-9. Hemoglobin currently 11. Monitor CBC. 6. Hyperlipidemia-not on statin. 7. Hypertension-stable, continue home metoprolol regimen. 8. Depression-continue home regimen of Celexa. DVT prophylaxis-heparin subcu. Discharge planning: Anticipate discharge to SNF pending pre-CERT. This patient was seen by LEW Piña under the supervision of Dr. King.
--- NOTE | 2017-07-23 14:44 | CASEMGMT ---
Social Work Note Pt known to SW from past admissions. Introduced self and role at [facility]. The pt reports needing SNF placement and requests TCU. Pt's long-term plan would be to return home after rehabilitation. Confirm that TCU would have bed availability and updated pt. Pt made aware that SW is available if needed. Will continue to follow and assist as needed with discharge planning. Plan: TCU for rehabilitation. Lisa De Los Santos, SIGNAL FITTER, TAXI DRIVER
--- NOTE | 2017-07-23 15:19 | CHAPLAIN ---
Type of Pastoral Visit _x__ Initial Visit ___ Follow-up Visit ___ On-call Visit ___ General Patient Visit ___ Spiritual Assessment ___ Family Conference ___ Bereavement ___ Rapid Response ___ Code Blue ___ Other (describe below) Pastoral Care Referral From _x__ Patient ___ Family ___ Nurse ___ Physician ___ Infantry Weapons Officer ___ Buffer Machine ___ Other (describe below) Sacrament/Intervention _x__ Active listening ___ Anointing ___ Episcopalian ___ Bereavement ___ Communion ___ Kavita exploration ___ ___ Life review _x__ Prayer ___ Reconciliation ___ Sacrament of Sick _x__ Supportive presence ___ Wedding ___ Other (describe below) Pastoral Comments
[2017-07-23 17:23] VITALS: BP 112/75; PULSE 74; RESP 18; TEMP 36.6; O2SAT 98
--- NOTE | 2017-07-23 17:36 | PCM.CONS.GEN ---
Reason for Consult Date of Consultation: 07/23/17 Reason for Consultation: Bilateral ischial pressure sores. REFERRING PHYSICIAN: Dr. King. CLASSICS PROFESSOR: Dr. Valle. History of Present Illness: The patient is a 62 year old F who was admitted with acute on chronic back pain and weakness. Upon admission it was noted the patient had bilateral ischial pressure sores with odor. Her initial WBC was normal at 9.6. Because of her weakness, she does not remember but she must have fallen out of her chair onto the floor and was unable to get herself up. Family found her this morning and called EMS. She states her back pain has been worsening for the past few weeks and she has radiating pain down both hips and stabbing pain in her buttocks. She states she has discussed seeing pain management with her primary care physician due to chronic back pain. Patient states she is in the process of undergoing bariatric surgery with the [facility] and will have a hernia repair during the procedure. She states she has lost approximately 100 pounds in preparation for surgery. Because she has difficulty getting up when she falls, she states when she urinates or has a bowel movement, she doesn't clean up right away and by laying in urine and/or stool at times increases risk of skin breakdown which has led to her developing bilateral ischial pressure sores. She is becoming more incontinent probably from the worsening low back pain and associated neuropathy. CT Pelvis was done and showed no acute bony injury of the pelvis and subcutaneous edema in the gluteal regions bilaterally, left more than right without drainable collection or subcutaneous gas and prominent ventral hernia in the lower anterior abdominal wall containing bowel loops and no bowel obstruction. I was asked to evaluate this patient for surgical options for treatment. Past Medical History Past Medical History (Chronic Problems): Chronic Problems Incontinence of urine (Chronic) Pressure sore of left ischium, stage 2 (Chronic) may be higher stage after excision Right ischial pressure sore, unstageable (Chronic) anticipate Stage IV after excision Thrombocytopenia (Chronic) Normochromic normocytic anemia (Chronic) Acute panniculitis (Chronic) Hyperlipidemia (Chronic) Umbilical hernia (Chronic) Morbid obesity (Chronic) Osteoarthritis (Chronic) Depression (Chronic) Hypertension (Chronic) Type 2 diabetes mellitus (Chronic) Allergies amoxicillin Adverse Reaction (Verified 07/22/17 08:26) Other latex Adverse Reaction (Verified 07/22/17 08:26) Other Current Medications Acetaminophen (Tylenol) 650 mg PO Q6H PRN Calamine/Phenol (Calmoseptine Ointment) 1 applic TOPICAL BID MACKENZIE Citalopram Hydrobromide (Celexa) 20 mg PO DAILY MACKENZIE Diclofenac Sodium (Voltaren) 50 mg PO TID PRN Heparin Sodium (Porcine) () 5,000 units SC Q8 MACKENZIE Methylprednisolone (Medrol Dosepak) 4 mg PO 0800,1200,1700 MACKENZIE Metoprolol Tartrate (Lopressor (Beta Agatha)) 50 mg PO BREAKFAST MACKENZIE Metoprolol Tartrate (Lopressor (Beta Agatha)) 100 mg PO QHS [facility] Morphine Sulfate (Ms Contin) 60 mg PO BID MACKENZIE Nystatin (Mycostatin Powder) 1 applic TOPICAL BID MACKENZIE Tizanidine HCl (Zanaflex) 4 mg PO Q6H PRN PAST MEDICAL HISTORY Thrombocytopenia. Anemia. Panniculus with panniculitis. Hyperlipidemia. Umbilical hernia. Morbid obesity. Osteoarthritis. Depression. Diabetes mellitus. Hypertension. Low back pain. Diabetic neuropathy. 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 Denies: Chills, Fever. HEENT: Denies: Head Aches, Sinus Congestion, Sinus Drainage. Cardiovascular: Denies: Chest Pain, Palpitations, Syncope. Respiratory: Denies: Cough, Shortness of breath at rest, Sputum production. Gastrointestinal: Reports: Nausea. Denies: Abdominal Pain, Vomiting. Genitourinary: Denies: Dysuria. Musculoskeletal: Reports: Back Pain. Denies: Joint Pain, Joint Tenderness. Skin: Reports: - - Chronic redness under abdominal folds. Denies: Rash, Wounds. Neurological: Reports: - - Chronic numbness, tingling bilateral lower extremities. Denies: Balance problems, Blurred vision, Change in Speech, Slurred speech, Focal weakness. Psychiatric: Reports: Depression. Hematologic/ Lymphatic: Denies: Easy Bruising, Easy Bleeding - Physical Exam General: Alert, Oriented. HEENT: PERRLA, EOMI. Neck: Supple, Nontender. No cervical adenopathy. Lungs: Clear to auscultation. Cardiovascular: Regular rate, Regular Rhythm. Abdomen: Soft, Non-Distended. Large abdominal panniculus. Large firm umbilical hernia. Extremities: No clubbing, No cyanosis. Mild edema in lower extremities. Skin: - - Bilateral ischial pressure sores. On the right is a large sore measuring 15 x 10 cm. Necrotic eschar present. It is unstageable. Probable Stage IV after debridement. On the left is a sore measuring 2 x 1.5 x 0.2 cm. Appears into the dermis at present, Stage II at least. May be deeper after debridement. No purulent drainage noted. Some mild odor present, more so from her incontinence. No inguinal adenopathy. Musculoskeletal: No Tenderness to Palpation of Joints or Extremities Neurological: Cranial nerves II-XII grossly intact Psych/Mental Status: Normal Affect, Appropriate Vital Signs Temp Pulse Resp BP Pulse Ox 97.8 F 74 18 112/75 98 07/23/17 17:23 07/23/17 17:23 07/23/17 17:23 07/23/17 17:23 07/23/17 17:23 Oxygen Delivery Method Room Air Weight: 284 lb 13.396 oz Body Mass Index (BMI) 52.0 Intake and Output for Last 24 Hours 07/21/17 07/22/17 07/23/17 23:59 23:59 23:59 Intake Total 1150 / 1150 Output Total 200 / 200 500 / 500 Balance -200 / -200 650 / 650 POC Glucose 07/23/17 11:22 POC Glucose 320 H Diagnostic Data Lumbar Spine X-Ray 07/22/17 12:10 IMPRESSION: Degenerative changes of the spine, as detailed above. Exaggerated lordosis. Electronically Signed: Mack Balbuena MD at 12:46 EDT Tel [phone], Service support , Pelvis CT 07/23/17 17:40 IMPRESSION: No acute bony injury of the pelvis. Subcutaneous edema in the gluteal regions bilaterally, left more than right without drainable collection or subcutaneous gas. Prominent ventral hernia in the lower anterior abdominal wall containing bowel loops. No bowel obstruction. Electronically Signed: Claude James DO at 21:05 EDT Tel [phone], Service support , Assessment/Plan 1. Right ischial pressure sore, Unstageable at present, probable Stage IV after debridement. 2. Left ischial pressure sore, Stage II at present, probable Stage III or IV after debridement. 3. Diabetes mellitus. 4. Incontinence. CT Pelvis reviewed. Recommend operative excision of these bilateral ischial pressure sores. I suspect they go down to the bone at which point a partial ostectomy for osteomyelitis will be done. Will treat with broad spectrum antibiotics because diabetics generally have polymicrobial infections. Will treat perioperatively with Levaquin and Cleocin. At the time of surgery soft tissue and possible bone would be sent to Pathology to evaluate for carcinoma and osteomyelitis as well as to Microbiology for culture. A positive culture may necessitate antibiotic modification. Also if long chain beamer IV antibiotics are necessary, then a PICC line would be placed. Needs specialty bed such as low air loss. Anticipate increased metabolic demands from the wounds and from her upcoming surgical excision. Will check a Prealbumin and will encourage nutritional supplementation with protein to help the healing process. To help with the incontinence, should place a guo. Depending on the extent of the bilateral ischial wounds after excision, the patient may be at increased risk for stool contamination. At that time, she would need a diverting colostomy. A colostomy would be difficult because of the presence of her large umbilical hernia. She would have to go to a tertiary center for a diverting colostomy if one is needed in the future. After surgery, wound care can be started with the [facility]. At discharge would recommend the patient go to a ECF initially to help manage her complex wounds and probable need for IV antibiotics. In the future, if the patient expresses interest in wound closure, can consider closure with fasciocutaneous flaps. Wouldn't do aggressive muscle flaps because detaching part of the hamstring muscles would hinder her ambulation. Before that surgery, she would need to have her HgbA1c less than 8 and also a determination at that time for a diverting colostomy would be made. Surgery would be done under anesthesia and will schedule in the next couple of days. Patient was informed of the risks and complications of the procedure including alternatives to surgery. These were discussed with her personally. She voices understanding and wishes to proceed. Code Visit Consult charges CPT - 12644 ICD-10 - L89.310, L89.322, E11.9, R32
--- NOTE | 2017-07-23 17:39 | CON.PCM_ITS ---
Reason for Consult Date of Consultation: 07/23/17 Reason for Consultation: Bilateral ischial pressure sores. REFERRING PHYSICIAN : Dr. King. WAITER/WAITRESS SECOND CLASS: Dr. Valle. History of Present Illness: The patient is a 62 year old F who was admitted with acute on chronic back pain and weakness. Upon admission it was noted the patient had bilateral ischial pressure sores with odor. Her initial WBC was normal at 9.6. Because of her weakness, she does not remember but she must have fallen out of her chair onto the floor and was unable to get herself up. Family found her this morning and called EMS. She states her back pain has been worsening for the past few weeks and she has radiating pain down both hips and stabbing pain in her buttocks. She states she has discussed seeing pain management with her primary care physician due to chronic back pain. Patient states she is in the process of undergoing bariatric surgery with the [facility] and will have a hernia repair during the procedure. She states she has lost approximately 100 pounds in preparation for surgery. Because she has difficulty getting up when she falls, she states when she urinates or has a bowel movement, she doesn't clean up right away and by laying in urine and/or stool at times increases risk of skin breakdown which has led to her developing bilateral ischial pressure sores. She is becoming more incontinent probably from the worsening low back pain and associated neuropathy. CT Pelvis was done and showed no acute bony injury of the pelvis and subcutaneous edema in the gluteal regions bilaterally, left more than right without drainable collection or subcutaneous gas and prominent ventral hernia in the lower anterior abdominal wall containing bowel loops and no bowel obstruction. I was asked to evaluate this patient for surgical options for treatment. Past Medical History Past Medical History (Chronic Problems): Chronic Problems Incontinence of urine (Chronic) Pressure sore of left ischium, stage 2 (Chronic) may be higher stage after excision Right ischial pressure sore, unstageable (Chronic) anticipate Stage IV after excision Thrombocytopenia (Chronic) Normochromic normocytic anemia (Chronic) Acute panniculitis (Chronic) Hyperlipidemia (Chronic) Umbilical hernia (Chronic) Morbid obesity (Chronic) Osteoarthritis (Chronic) Depression (Chronic) Hypertension (Chronic) Type 2 diabetes mellitus (Chronic) Allergies amoxicillin Adverse Reaction (Verified 07/22/17 08:26) Other latex Adverse Reaction (Verified 07/22/17 08:26) Other Current Medications Acetaminophen (Tylenol) 650 mg PO Q6H PRN Calamine/Phenol (Calmoseptine Ointment) 1 applic TOPICAL BID MACKENZIE Citalopram Hydrobromide (Celexa) 20 mg PO DAILY MACKENZIE Diclofenac Sodium (Voltaren) 50 mg PO TID PRN Heparin Sodium (Porcine) () 5,000 units SC Q8 MACKENZIE Methylprednisolone (Medrol Dosepak) 4 mg PO 0800,1200,1700 MACKENZIE Metoprolol Tartrate (Lopressor (Beta Agatha)) 50 mg PO BREAKFAST MACKENZIE Metoprolol Tartrate (Lopressor (Beta Agatha)) 100 mg PO QHS [facility] Morphine Sulfate (Ms Contin) 60 mg PO BID MACKENZIE Nystatin (Mycostatin Powder) 1 applic TOPICAL BID MACKENZIE Tizanidine HCl (Zanaflex) 4 mg PO Q6H PRN PAST MEDICAL HISTORY Thrombocytopenia. Anemia. Panniculus with panniculitis. Hyperlipidemia. Umbilical hernia. Morbid obesity. Osteoarthritis. Depression. Diabetes mellitus. Hypertension. Low back pain. Diabetic neuropathy. 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 Denies: Chills, Fever. HEENT: Denies: Head Aches, Sinus Congestion, Sinus Drainage. Cardiovascular: Denies: Chest Pain, Palpitations, Syncope. Respiratory: Denies: Cough, Shortness of breath at rest, Sputum production. Gastrointestinal: Reports: Nausea. Denies: Abdominal Pain, Vomiting. Genitourinary: Denies: Dysuria. Musculoskeletal: Reports: Back Pain. Denies: Joint Pain, Joint Tenderness. Skin: Reports: - - Chronic redness under abdominal folds. Denies: Rash, Wounds. Neurological: Reports: - - Chronic numbness, tingling bilateral lower extremities. Denies: Balance problems, Blurred vision, Change in Speech, Slurred speech, Focal weakness. Psychiatric: Reports: Depression. Hematologic/ Lymphatic: Denies: Easy Bruising, Easy Bleeding - Physical Exam General: Alert, Oriented. HEENT: PERRLA, EOMI. Neck: Supple, Nontender. No cervical adenopathy. Lungs: Clear to auscultation. Cardiovascular: Regular rate, Regular Rhythm. Abdomen: Soft, Non-Distended. Large abdominal panniculus. Large firm umbilical hernia. Extremities: No clubbing, No cyanosis. Mild edema in lower extremities. Skin: - - Bilateral ischial pressure sores. On the right is a large sore measuring 15 x 10 cm. Necrotic eschar present. It is unstageable. Probable Stage IV after debridement. On the left is a sore measuring 2 x 1.5 x 0.2 cm. Appears into the dermis at present, Stage II at least. May be deeper after debridement. No purulent drainage noted. Some mild odor present, more so from her incontinence. No inguinal adenopathy. Musculoskeletal: No Tenderness to Palpation of Joints or Extremities Neurological: Cranial nerves II-XII grossly intact Psych/Mental Status: Normal Affect, Appropriate Vital Signs Temp Pulse Resp BP Pulse Ox 97.8 F 74 18 112/75 98 07/23/17 17:23 07/23/17 17:23 07/23/17 17:23 07/23/17 17:23 07/23/17 17:23 Oxygen Delivery Method Room Air Weight: 284 lb 13.396 oz Body Mass Index (BMI) 52.0 Intake and Output for Last 24 Hours 07/21/17 07/22/17 07/23/17 23:59 23:59 23:59 Intake Total 1150 / 1150 Output Total 200 / 200 500 / 500 Balance -200 / -200 650 / 650 POC Glucose 07/23/17 11:22 POC Glucose 320 H Diagnostic Data Lumbar Spine X-Ray 07/22/17 12:10 IMPRESSION: Degenerative changes of the spine, as detailed above. Exaggerated lordosis. Electronically Signed: Mack Balbuena MD at 12:46 EDT Tel [phone], Service support , Pelvis CT 07/23/17 17:40 IMPRESSION: No acute bony injury of the pelvis. Subcutaneous edema in the gluteal regions bilaterally, left more than right without drainable collection or subcutaneous gas. Prominent ventral hernia in the lower anterior abdominal wall containing bowel loops. No bowel obstruction. Electronically Signed: Claude James DO at 21:05 EDT Tel [phone], Service support , Assessment/Plan 1. Right ischial pressure sore, Unstageable at present, probable Stage IV after debridement. 2. Left ischial pressure sore, Stage II at present, probable Stage III or IV after debridement. 3. Diabetes mellitus. 4. Incontinence. CT Pelvis reviewed. Recommend operative excision of these bilateral ischial pressure sores. I suspect they go down to the bone at which point a partial ostectomy for osteomyelitis will be done. Will treat with broad spectrum antibiotics because diabetics generally have polymicrobial infections. Will treat perioperatively with Levaquin and Cleocin. At the time of surgery soft tissue and possible bone would be sent to Pathology to evaluate for carcinoma and osteomyelitis as well as to Microbiology for culture. A positive culture may necessitate antibiotic modification. Also if editor greeting card IV antibiotics are necessary, then a PICC line would be placed. Needs specialty bed such as low air loss. Anticipate increased metabolic demands from the wounds and from her upcoming surgical excision. Will check a Prealbumin and will encourage nutritional supplementation with protein to help the healing process. To help with the incontinence, should place a guo. Depending on the extent of the bilateral ischial wounds after excision, the patient may be at increased risk for stool contamination. At that time, she would need a diverting colostomy. A colostomy would be difficult because of the presence of her large umbilical hernia. She would have to go to a tertiary center for a diverting colostomy if one is needed in the future. After surgery, wound care can be started with the VAC. At discharge would recommend the patient go to a ECF initially to help manage her complex wounds and probable need for IV antibiotics. In the future, if the patient expresses interest in wound closure, can consider closure with fasciocutaneous flaps. Wouldn't do aggressive muscle flaps because detaching part of the hamstring muscles would hinder her ambulation. Before that surgery, she would need to have her HgbA1c less than 8 and also a determination at that time for a diverting colostomy would be made. Surgery would be done under anesthesia and will schedule in the next couple of days. Patient was informed of the risks and complications of the procedure including alternatives to surgery. These were discussed with her personally. She voices understanding and wishes to proceed. Code Visit Consult charges CPT - 82827 ICD-10 - L89.310, L89.322, E11.9, R32
--- NOTE | 2017-07-23 17:40 | CT_ITS ---
STUDY: CT PELVIS WITHOUT CONTRAST REASON FOR EXAM: Female, 62 years old. Ischial pressure sores bilaterally RADIATION DOSAGE (If Supplied By Facility): CTDIvol = ( 28.20 ) mGy, DLP = ( 2177.80 ) mGycm TECHNIQUE: Transaxial imaging of the pelvis was performed with oral contrast, and without intravenous administration of contrast material. Individualized dose optimization techniques were used for this CT. COMPARISON: None. FINDINGS: South catheter in the decompressed urinary bladder. Normal visualized small intestine. Normal visualized colon. There is no pelvic fluid. There is no pelvic mass lesion or lymphadenopathy. Normal visualized pelvic arteries. There is a ventral hernia of the lower anterior abdominal wall abdomen containing bowel loops. Subcutaneous edema of the gluteal region, left more than right. No subcutaneous gas or drainable fluid collection within the gluteal regions bilaterally.. Degenerative lumbar changes. Ossific density adjacent at the right issue tuberosity may be related to previous injury. CT/Pelvis without IV Contrast IMPRESSION: No acute bony injury of the pelvis. Subcutaneous edema in the gluteal regions bilaterally, left more than right without drainable collection or subcutaneous gas. Prominent ventral hernia in the lower anterior abdominal wall containing bowel loops. No bowel obstruction. Electronically Signed: Claude James DO at 21:05 EDT Tel [phone], Service support ,
[2017-07-23 22:18] VITALS: PULSE 94
[2017-07-23] MEDS: Metoprolol Tartrate 100 MG Tablet PO (22:18)
[2017-07-23 22:22] VITALS: BP 138/77; PULSE 94; RESP 16; TEMP 37.1; O2SAT 99
[2017-07-24] VITALS (7 sets, daily range): BP systolic 127–152; BP diastolic 64–80; PULSE 58–69; RESP 16–18; TEMP 36.6–37.3; O2SAT 95–98
[2017-07-24] MEDS: Heparin Injection 5,000 UNITS/ML Syringe 5000 UNITS SC ×2 (05:39→22:20)
[2017-07-24 06:30] LABS: Hematocrit 30.8 % (37-47); Hemoglobin 9.6 g/dl (12.0-15.0); Mean Corp Hgb Conc 31.2 g/gl (32-36); Mean Corpuscular Hgb 29.1 pg (27.0-32.0); Mean Corpuscular Volume 93.3 fL (81-99); Mean Platelet Vol. 10.3 fl (6.2-12.0); Platelet Count 109 K/mm3 (150-450); RBC Distribution Width CV 13.8 % (11.6-14.6); RBC Distribution Width SD 46.6 fl (35.1-43.9); White Blood Count 4.7 K/mm3 (4.4-11.0)
[2017-07-24 06:38] LABS: Scan Indicated on CBC? Y/N NO
[2017-07-24 06:49] LABS: Erythrocyte Sedimentation Rate 68 mm/hr (0-30)
[2017-07-24 07:02] LABS: Anion Gap 6 (5-15); BUN 20 mg/dL (7-18); BUN/Creat Ratio 26.2 RATIO (10-20); Calcium,Total 8.7 mg/dL (8.5-10.1); Chloride 103 mmol/L (98-107); Creatinine, Serum 0.76 mg/dL (0.55-1.02); EST Glomerular Filtration Rate 82 mL/min (>60); Est Glom Filt Rate - Afr Amer 99 mL/min (>60); Estimated Creatinine Clearance 62.26 ml/min; Glucose 223 mg/dL (74-106); Potassium 4.2 mmol/L (3.5-5.1); Sodium Level 138 mmol/L (136-145)
[2017-07-24] MEDS: Metoprolol Tartrate 50 MG Tablet PO (09:45)
[2017-07-24] MEDS: MethylPREDNISolone DosePak 4 MG BOX PO ×4 (09:46→22:20)
[2017-07-24] MEDS: Nystatin Powder 15gm Bottle 1 APPLIC TOPICAL ×2 (11:27→22:21)
[2017-07-24] MEDS: Citalopram 20 MG Tablet PO (11:28)
[2017-07-24] MEDS: Menthol/Lanolin/Calamine/Znox 113 GM Tube 1 APPLIC TOPICAL ×2 (11:28→22:22)
--- NOTE | 2017-07-24 14:49 | PN_ITS ---
Subjective: Patient seen and examined. No acute events overnight. Denies pain. Denies fever, chills. Aware of the plan for wound debridement tomorrow or Saturday. Denies other complaints or concerns. - Physical Exam General: Alert, Oriented x3, Cooperative, No apparent distress HEENT: Atraumatic, PERRLA, EOMI, Normocephalic Neck: Supple, No JVD, Negative Carotid Bruits Lungs: Clear to auscultation, Diminished Cardiovascular: Regular rate, No murmurs Abdomen: Bowel Sounds Present, Soft, Non Tender, Non-Distended, Obese Extremities: No clubbing, No cyanosis, No edema, Capillary Refill Less than 3 Seconds Skin: - - Erythema abdominal folds and anterior pelvis with open area of the anterior pelvis. Unstageable pressure injury of bilateral buttocks, present on admission. Musculoskeletal: No Tenderness to Palpation of Joints or Extremities Neurological: Cranial nerves II-XII grossly intact, Neuro grossly intact Psych/Mental Status: Normal Affect, Appropriate Vital Signs Temp Pulse Resp BP Pulse Ox 98.0 F 62 18 146/64 H 95 07/24/17 09:50 07/24/17 09:50 07/24/17 09:50 07/24/17 09:50 07/24/17 09:50 Oxygen Delivery Method Room Air Weight: 129.2 kg Body Mass Index (BMI) 52.0 Intake and Output for Last 24 Hours 07/22/17 07/23/17 07/24/17 23:59 23:59 23:59 Intake Total 2350 / 2350 1190 / 1190 Output Total 200 / 200 1300 / 1300 1450 / 1450 Balance -200 / -200 1050 / 1050 -260 / -260 Laboratory Tests Past 24 Hrs 07/24/17 07/24/17 06:12 06:12 WBC 4.7 RBC 3.30 L Hgb 9.6 L Hct 30.8 L MCV 93.3 MCH 29.1 MCHC 31.2 L RDW 13.8 RDW Differential 46.6 H Plt Count 109 L MPV 10.3 ESR 68 H Sodium 138 Potassium 4.2 Chloride 103 Carbon Dioxide 29.0 Anion Gap 6 BUN 20 H Creatinine 0.76 Estim Creat Clear Calc 62.26 Est GFR (MDRD) Af Amer 99 Est GFR (MDRD) Non-Af 82 BUN/Creatinine Ratio 26.2 H Glucose 223 H Calcium 8.7 C-React Prot Ext Range 19.80 H Prealbumin 9.0 L Medical Necessity - Tobacco Use Smoking Status: Never smoker Assessment/Plan 1. Acute on chronic back pain with associated debility-underlying osteoarthritis. Continue home MS Contin regimen and gabapentin. Continue Voltaren and Medrol Dosepak. PT/OT. Case management consult for anticipated SNF /Rehab placement. 2. Morbid obesity-history of panniculitis. Nutrition consult. Patient is in the process of undergoing bariatric surgery and correction of umbilical hernia. Calorie controlled diet. 3. Type 2 diabetes mellitus-associated chronic diabetic neuropathy bilateral lower extremities. Not on home regimen. Hemoglobin A1c May 2017 7%. Accu- Cheks before meals at bedtime with sliding scale insulin. 4. Chronic thrombocytopenia-stable, monitor CBC. 5. Chronic normochromic normocytic anemia-stable. Baseline hemoglobin 8-9. Hemoglobin currently 9.6. Monitor CBC. 6. Hyperlipidemia-not on statin. 7. Hypertension-stable, continue home metoprolol regimen. 8. Depression-continue home regimen of Celexa. 9. Unstageable pressure injury bilateral lower buttocks and nonhealing ulcer abdominal wall, present on admission-Dr. Valle consulted. Wound RN consulted. Plans for wound debridement tomorrow or Saturday. Anticipate patient will require wound VAC following surgery. DVT prophylaxis-heparin subcu. Discharge planning: Anticipate discharge to SNF pending pre-CERT. This patient was seen by LEW Piña under the supervision of Dr. King.
--- NOTE | 2017-07-24 16:05 | PN.SURG_ITS ---
Subjective: Patient is resting comfortably. The surgery has been scheduled for tomorrow. Today I will unroof the left ischial pressure sore a little bit to allow drainage and minimize the pressure sore from festering and worsening before her surgery tomorrow. Would start Dakin's dressing changes. - Physical Exam General: Alert, Oriented x3 HEENT: PERRLA, EOMI Neck: Supple Lungs: Clear to auscultation Cardiovascular: Regular rate, Regular Rhythm Abdomen: Soft, Non-Distended, Hernia - large umbilical hernia., - - large painful abdominal panniculus with panniculitis. Extremities: No clubbing, No cyanosis, Edema - mild edema in lower extremities. Skin: Ulcer/ Wound - Bilateral ischial pressure sores. On the left is a large sore measuring 15 x 10 cm. Necrotic eschar present. It is unstageable. Probable Stage IV after debridement. On the right is a sore measuring 2 x 1.5 x 0.2 cm. Appears into the dermis at present, Stage II at least. May be deeper after debridement. No purulent drainage noted. Some mild odor present, more so from her incontinence. Lymphatic: - - no inguinal adenopathy. Neurological: Cranial nerves II-XII grossly intact Psych/Mental Status: Normal Affect, Appropriate Vital Signs Temp Pulse Resp BP Pulse Ox 98.0 F 62 18 146/64 H 95 07/24/17 09:50 07/24/17 09:50 07/24/17 09:50 07/24/17 09:50 07/24/17 09:50 Oxygen Delivery Method Room Air Weight: 284 lb 13.396 oz Body Mass Index (BMI) 52.0 Intake and Output for Last 24 Hours 07/22/17 07/23/17 07/24/17 23:59 23:59 23:59 Intake Total 2350 / 2350 1190 / 1190 Output Total 200 / 200 1300 / 1300 1450 / 1450 Balance -200 / -200 1050 / 1050 -260 / -260 Laboratory Tests Past 24 Hrs 07/24/17 07/24/17 07/24/17 06:12 06:12 14:45 WBC 4.7 RBC 3.30 L Hgb 9.6 L Hct 30.8 L MCV 93.3 MCH 29.1 MCHC 31.2 L RDW 13.8 RDW Differential 46.6 H Plt Count 109 L MPV 10.3 ESR 68 H Sodium 138 Potassium 4.2 Chloride 103 Carbon Dioxide 29.0 Anion Gap 6 BUN 20 H Creatinine 0.76 Estim Creat Clear Calc 62.26 Est GFR (MDRD) Af Amer 99 Est GFR (MDRD) Non-Af 82 BUN/Creatinine Ratio 26.2 H Glucose 223 H Calcium 8.7 C-React Prot Ext Range 19.80 H Prealbumin 9.0 L S.aureus Protein A PCR Pending MRSA (PCR) Pending Medical Necessity - Tobacco Use Smoking Status: Never smoker Assessment/Plan 1. Left ischial pressure sore, Unstageable at present, probable Stage IV after debridement. 2. Right ischial pressure sore, Stage II at present, probable Stage III or IV after debridement. 3. Diabetes mellitus. 4. Incontinence. DEBRIDEMENT NOTE Using scissors and a pair of pickups, I sharply debrided the necrotic skin of the left ischial pressure sore down into the underlying muscle where there was some bleeding and some soreness. The underlying muscle looked viable at present. No evidence of necrotizing process noted. An MRSA by DNA PCR swab was taken. If positive then Vancomycin would be started. A wound culture wasn' t done since a deeper operative culture will be obtained tomorrow. Good bleeding was noted after the excisional debridement. Hemostasis was obtained with gentle pressure. Some of the subcutaneous tissue and muscle was excised with the excisional debridement. In addition to the subcutaneous tissue and muscle, I also debrided some senescent cells, some increased bioburden and some devitalized tissue. The dimensions of the wound after the excisional debridement was 6 x 6 x 3 cm or 36 cm2. The rest of the pressure sore will be excised tomorrow under anesthesia. The wound was packed with saline gauze until the Dakin's is available. CT Pelvis reviewed. Recommend operative excision of these bilateral ischial pressure sores. I suspect they go down to the bone at which point a partial ostectomy for osteomyelitis will be done. Will treat with broad spectrum antibiotics because diabetics generally have polymicrobial infections. Will treat perioperatively with Levaquin and Cleocin. At the time of surgery soft tissue and possible bone would be sent to Pathology to evaluate for carcinoma and osteomyelitis as well as to Microbiology for culture. A positive culture may necessitate antibiotic modification. Also if care home IV antibiotics are necessary, then a PICC line would be placed. A specialty bed such as low air loss was obtained. Anticipate increased metabolic demands from the wounds and from her upcoming surgical excision. Prealbumin was quite low at 9.0 and will encourage nutritional supplementation with protein to help the healing process. To help with the incontinence, a guo was placed. Depending on the extent of the bilateral ischial wounds after excision, the patient may be at increased risk for stool contamination. At that time, she would need a diverting colostomy. A colostomy would be difficult because of the presence of her large umbilical hernia. She would have to go to a tertiary center for a diverting colostomy if one is needed in the future. After surgery, wound care can be started with the VAC. At discharge would recommend the patient go to a ECF initially to help manage her complex wounds and probable need for IV antibiotics. In the future, if the patient expresses interest in wound closure, can consider closure with fasciocutaneous flaps. Wouldn't do aggressive muscle flaps because detaching part of the hamstring muscles would hinder her ambulation. Before that surgery, she would need to have her HgbA1c less than 8 and also a determination at that time for a diverting colostomy would be made. Surgery would be done under anesthesia and is scheduled for tomorrow morning. Patient was informed of the risks and complications of the procedure including alternatives to surgery. These were discussed with her personally. She voices understanding and wishes to proceed. Code Visit Charges CPT - 10086-13 ICD-10 - L89.324, I96, L89.312, E11.9, R32 [id number] L89.324, I96, E11.9, R32 [id number] L89.324, I96, E11.9, R32
--- NOTE | 2017-07-24 16:22 | CASEMGMT ---
Social Work Note Update from Evette LAYTON LISW-S, that the pt's sister, Melinda Joiner, called inquiring about her discharge plan. Face to face with pt and updated and inquired if SW could share information with the pt's sister and she declines. Encourage the pt to consider over night as her sister seems concerned. Pt states that she would prefer to leave things as they are at the moment, but will notify SW if anything changes. Will continue to follow and assist with discharge planning. Plan: TCU for rehabilitation. Lisa De Los Santos, SORTING GRAPPLE OPERATOR, AIRCRAFT SHEET METAL MECHANIC
[2017-07-24 16:34] LABS: M R Staph aureus DNA By PCR Negative (Negative); Probe Check PASS; Specimen Processing Control PASS; Staph aureus DNA By PCR NEGATIVE (Negative)
[2017-07-24] MEDS: tiZANidine HCl 2 MG Tablet 4 MG PO (20:03)
[2017-07-24] MEDS: Metoprolol Tartrate 100 MG Tablet PO (22:20)
[2017-07-25] VITALS (12 sets, daily range): BP systolic 119–157; BP diastolic 54–90; PULSE 60–73; RESP 16–18; TEMP 36.2–37.4; O2SAT 97–100; BMI 52.4
--- NOTE | 2017-07-25 | PRES_PTH ---
PATIENT: KIMBERLY ROBBINS LOC: [facility] U#:[id number] AGE/SX: 62/F ROOM: [place]321 RE07/22/[address]: Dr. Candido King DO : 1955 BED: 1 DIS: 07/26/2017 SPEC #: [id number] RECD: 07/25/17 13:48 STATUS: MELANIA REQ #: [id number] REYNA: 07/25/17 00:[address]: Vasiliy Valle DEPT: SURGICAL PATHOLOGY RECD BY: Chandu Rose ENTERED: 07/25/17 13:48 SP TYPE: PRESS SORE OTHR DR: MD Dr. Candido Hassan DO Tissues: A - Ischium, NOS B - Ischium, NOS Procedures: Special Stain Group I Surgery Specimen Level IV AFB Stain (control) GMS Stain (control) Comments: @ Ordering doctor for DEC edited from to @ by BRIAN at 07/25/17 1556 @ Ordering doctor for IV edited from to @ by BRIAN at 07/25/17 1556 @ Submitting doctor edited from to @ by FARAZOD at 07/25/17 1556 HEADER OPERATION: Excision, ischial pressure sores PRE-OP DIAGNOSIS: Bilateral ischial pressure sores TISSUE SUBMITTED: A ? Debrided tissue right ischial, B - Debrided tissue left ischial MICROSCOPIC DIAGNOSIS A. Skin and soft tissue of right ischial region, excision: Ulceration with associated acute and chronic inflammation and granulation. Epidermis with hyperkeratosis. B. Skin and soft tissue of left ischial region, excision: Ulceration with associated acute and chronic inflammation and granulation. Negative for acid-fast bacilli and fungal organisms. AM:eva 07/26/17 COMMENT B. AFB and GMS stains with matched controls were used in the evaluation of this case. MICROSCOPIC DESCRIPTION Slides are reviewed. GROSS DESCRIPTION A - Received in fixative is one container labeled with the patient's name and designated debrided tissue right ischial. The specimen consists of a piece of skin with underlying tissue measuring 4 x 1.5 cm and up to 1 cm in thickness. A focal area of ulceration is noted. Cessation Systems Outreach Specialist sections are submitted in one cassette. B - Received in fixative is one container labeled with the patient's name and designated debrided tissue left ischial. The specimen consists of three variable size pieces of skin with underlying tissue that in aggregate measure 11 x 11 x 3.5 cm. The skin surface shows an area of ulceration. Focally, the skin surface is brownish-black and gangrenous. Cessation Systems Outreach Specialist sections are submitted in two cassettes. / JANEEN:eva 07/25/17 TC:2 CPT: 86075 x2, 15407 x2
[2017-07-25 06:10] LABS: Hematocrit 33.3 % (37-47); Hemoglobin 10.5 g/dl (12.0-15.0); Mean Corp Hgb Conc 31.5 g/gl (32-36); Mean Platelet Vol. 10.5 fl (6.2-12.0); Platelet Count 116 K/mm3 (150-450); RBC Distribution Width CV 13.5 % (11.6-14.6); Red Blood Count 3.62 M/mm3 (4.2-5.4); White Blood Count 5.1 K/mm3 (4.4-11.0)
[2017-07-25 06:11] LABS: International Normalized Ratio 1.2
[2017-07-25 06:26] LABS: Scan Indicated on CBC? Y/N NO
[2017-07-25 06:28] LABS: Anion Gap 5 (5-15); BUN 27 mg/dL (7-18); BUN/Creat Ratio 32.7 RATIO (10-20); Calcium,Total 9.1 mg/dL (8.5-10.1); Chloride 98 mmol/L (98-107); Creatinine, Serum 0.83 mg/dL (0.55-1.02); EST Glomerular Filtration Rate 75 mL/min (>60); Est Glom Filt Rate - Afr Amer 91 mL/min (>60); Estimated Creatinine Clearance 57.01 ml/min; Glucose 198 mg/dL (74-106); Potassium 4.6 mmol/L (3.5-5.1); Sodium Level 134 mmol/L (136-145)
--- NOTE | 2017-07-25 07:48 | EKG12_ITS ---
Test Reason : PRE OP Blood Pressure : / mmHG Vent. Rate : 060 BPM Atrial Rate : 060 BPM P-R Int : 214 ms QRS Dur : 088 ms QT Int : 406 ms P-R-T Axes : 041 -09 039 degrees QTc Int : 406 ms Sinus rhythm with 1st degree A-V block Otherwise normal ECG When compared with ECG of 14-JUL-2016 00:05, No significant change was found Confirmed by CIRILO FAGAN, DENISHA ([id number]), editor sound YAO LORENZO ([id number]) on 07/26/2017 2:56:17 PM Referred By: MATT Confirmed By:DENISHA KERR MD
[2017-07-25 08:03] LABS: Partial Thromboplast Time 26.7 Seconds (24.1-36.2)
[2017-07-25] MEDS: Metoprolol Tartrate 50 MG Tablet PO (08:09)
--- NOTE | 2017-07-25 08:23 | NURSING ---
Pt is scheduled for surgical debridement of ischial wounds today per Dr Valle. scheduled to be picked up this am for surgery around 1000. pt will most likely need wound VAC post op. plan is for patient to go to TCU at discharge.
--- NOTE | 2017-07-25 09:05 | NURSING ---
PT TO OR VIA BED.
[2017-07-25] MEDS: levoFLOXacin IV 500 MG/100 ML BAG 100 MG IV (09:50)
[2017-07-25] MEDS: Clindamycin 900 MG/50 ML BAG 75 MG IV (11:07)
--- NOTE | 2017-07-25 12:44 | PCM.IMDPSTOP ---
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 Left ischial pressure sore, Unstageable at present, probable Stage IV after debridement. 2. Right ischial pressure sore, Stage II at present, probable Stage III or IV after debridement. 3. Diabetes mellitus. 4. Incontinence. Post-Operative Diagnosis: 1. Left ischial pressure sore into the muscle, Stage IV. 2. Right ischial pressure sore into subcutaneous tissue, Stage III. 3. Diabetes mellitus. 4. Incontinence. Surgery/Procedure Performed:: 1. Excision left ischial pressure sore into the muscle, Stage IV. 2. Excision right ischial pressure sore into the subcutaneous tissue, Stage III, with 6 cm layered closure. Description of Surgical Findings:: The patient is a 62 year old F who was admitted with acute on chronic back pain and weakness. Upon admission it was noted the patient had bilateral ischial pressure sores with odor. Her initial WBC was normal at 9.6. Because of her weakness, she does not remember but she must have fallen out of her chair onto the floor and was unable to get herself up. Family found her this morning and called EMS. She states her back pain has been worsening for the past few weeks and she has radiating pain down both hips and stabbing pain in her buttocks. She states she has discussed seeing pain management with her primary care physician due to chronic back pain. Patient states she is in the process of undergoing bariatric surgery with the [facility] and will have a hernia repair during the procedure. She states she has lost approximately 100 pounds in preparation for surgery. Because she has difficulty getting up when she falls, she states when she urinates or has a bowel movement, she doesn't clean up right away and by laying in urine and/or stool at times increases risk of skin breakdown which has led to her developing bilateral ischial pressure sores. She is becoming more incontinent probably from the worsening low back pain and associated neuropathy. CT Pelvis was done and showed no acute bony injury of the pelvis and subcutaneous edema in the gluteal regions bilaterally, left more than right without drainable collection or subcutaneous gas and prominent ventral hernia in the lower anterior abdominal wall containing bowel loops and no bowel obstruction. Today the patient underwent excision left ischial pressure sore into the muscle, Stage IV and excision right ischial pressure sore into the subcutaneous tissue, Stage III, with 6 cm layered closure. Size of defect left ischial area - 14 x 14 x 5 cm. Estimated Blood Loss: 200 ml. Specimen's removed: 1. Left ischial pressure sore to Pathology and Microbiology. 2. Right ischial pressure sore to Pathology and Microbiology. Drains: None. Type of Anesthesia:: General - Admit VTE Documentation VTE Present on Admission: No VTE Mechan Device Prophylaxis: SCD's VTE Pharm Prophylaxis ordered?: Yes
--- NOTE | 2017-07-25 16:28 | PCM.PROGNOTE ---
Subjective: pt seen and examined post op today seems to be recovering well. She is alert and awake. She has no SOB, although does have a mild nonproductive cough. Encouraged spirometer. No fever, chills, nausea, vomiting. Guo is in place. Placed prior to surgery as she had some incontinence. Should maintain to keep wound area clean. Pain is mild, controlled with PO meds currently. - Physical Exam General: Alert, Oriented x3, Cooperative HEENT: Atraumatic, PERRLA, EOMI, Normocephalic Neck: Supple, No JVD, Negative Carotid Bruits Lungs: Clear to auscultation, Normal air movement Cardiovascular: Regular rate, No murmurs Abdomen: Bowel Sounds Present, Soft, Non Tender Extremities: No edema, Capillary Refill Less than 3 Seconds Skin: No rashes, No breakdown Musculoskeletal: No Tenderness to Palpation of Joints or Extremities Neurological: Cranial nerves II-XII grossly intact Psych/Mental Status: Normal Affect, Appropriate Vital Signs Temp Pulse Resp BP Pulse Ox 98.4 F 64 16 156/78 H 97 07/25/17 16:09 07/25/17 16:09 07/25/17 16:09 07/25/17 16:09 07/25/17 16:09 Oxygen Flow Rate (L/min) 2 Oxygen Delivery Method Room Air Weight: 129.2 kg Body Mass Index (BMI) 52.4 Intake and Output for Last 24 Hours 07/23/17 07/24/17 07/25/17 23:59 23:59 23:59 Intake Total 2350 / 2350 1690 / 1690 1125 / 1125 Output Total 1300 / 1300 2050 / 2050 4225 / 4225 Balance 1050 / 1050 -360 / -360 -3100 / -3100 Microbiology Past 72 Hours 07/25/17 12:00 Gram Stain - Final Tissue - Ischium 07/25/17 12:00 Gram Stain - Final Tissue - Ischium Laboratory Tests Past 24 Hrs 07/24/17 07/25/17 07/25/17 14:45 05:35 05:35 WBC 5.1 RBC 3.62 L Hgb 10.5 L Hct 33.3 L MCV 92.0 MCH 29.0 MCHC 31.5 L RDW 13.5 RDW Differential 45.0 H Plt Count 116 L MPV 10.5 PT 15.0 H INR 1.2 APTT Sodium Potassium Chloride Carbon Dioxide Anion Gap BUN Creatinine Estim Creat Clear Calc Est GFR (MDRD) Af Amer Est GFR (MDRD) Non-Af BUN/Creatinine Ratio Glucose Calcium S.aureus Protein A PCR NEGATIVE MRSA (PCR) Negative 07/25/17 07/25/17 05:35 05:35 WBC RBC Hgb Hct MCV MCH MCHC RDW RDW Differential Plt Count MPV PT INR APTT 26.7 Sodium 134 L Potassium 4.6 Chloride 98 Carbon Dioxide 31.0 Anion Gap 5 BUN 27 H Creatinine 0.83 Estim Creat Clear Calc 57.01 Est GFR (MDRD) Af Amer 91 Est GFR (MDRD) Non-Af 75 BUN/Creatinine Ratio 32.7 H Glucose 198 H Calcium 9.1 S.aureus Protein A PCR MRSA (PCR) Medical Necessity - Tobacco Use Smoking Status: Never smoker Tobacco Use: Non-smoker Assessment/Plan 1. left and right ischial pressure sore stage IV and III respectively. s/p excision and debridement per Dr. Valle post-op Day #0. Left size noted [id number]. Continue wound care. Continue guo to ensure clean area. Bernard supplements. Wound cultures pending. 2. Acute on chronic back pain with associated debility 2/2 underlying osteoarthritis - continue current pain regimen. medrol dose pack. 3. Morbid obesity - dietary eval. Pt planning for bariatric surgery. Calorie controlled diet. 4. T2DM - SSI. Last A1C 7% 5. Chronic thrombocytopenia - monitor with heparin use 6. HLD - not currently on statin 7. HTN - stable 8. Depression - affect pleasant today. Continue celexa. 9. Chronic normocytic anemia - stable. DVT ppx: heparin DC planning: SNF This patient was by Elias Nascimento PA-C seen under the supervision of Dr. King.
--- NOTE | 2017-07-25 18:04 | PCM.OPRPT ---
Report of Operation Date of Procedure: 07/25/17 Pre-Operative Diagnosis: 1. Left ischial pressure sore, Unstageable at present, probable Stage IV after debridement. 2. Right ischial pressure sore, Stage II at present, probable Stage III or IV after debridement. 3. Diabetes mellitus. 4. Incontinence. Post-Operative Diagnosis: 1. Left ischial pressure sore into the muscle, Stage IV. 2. Right ischial pressure sore into subcutaneous tissue, Stage III. 3. Diabetes mellitus. 4. Incontinence. Surgery/Procedure Performed:: 1. Excision left ischial pressure sore into the muscle, Stage IV. 2. Excision right ischial pressure sore into the subcutaneous tissue, Stage III, with 6 cm layered closure. Description of Surgical Findings:: The patient is a 62 year old F who was admitted with acute on chronic back pain and weakness. Upon admission it was noted the patient had bilateral ischial pressure sores with odor. Her initial WBC was normal at 9.6. Because of her weakness, she does not remember but she must have fallen out of her chair onto the floor and was unable to get herself up. Family found her this morning and called EMS. She states her back pain has been worsening for the past few weeks and she has radiating pain down both hips and stabbing pain in her buttocks. She states she has discussed seeing pain management with her primary care physician due to chronic back pain. Patient states she is in the process of undergoing bariatric surgery with the [facility] and will have a hernia repair during the procedure. She states she has lost approximately 100 pounds in preparation for surgery. Because she has difficulty getting up when she falls, she states when she urinates or has a bowel movement, she doesn't clean up right away and by laying in urine and/or stool at times increases risk of skin breakdown which has led to her developing bilateral ischial pressure sores. She is becoming more incontinent probably from the worsening low back pain and associated neuropathy. CT Pelvis was done and showed no acute bony injury of the pelvis and subcutaneous edema in the gluteal regions bilaterally, left more than right without drainable collection or subcutaneous gas and prominent ventral hernia in the lower anterior abdominal wall containing bowel loops and no bowel obstruction. Patient was informed of the risks and complications of the procedure including alternatives to surgery. These were discussed with her personally. She voices understanding and wishes to proceed. Size of defect left ischial area - 14 x 14 x 5 cm. 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 Left ischial pressure sore to Pathology and Microbiology. 2. Right ischial pressure sore to Pathology and Microbiology. Drains: None. Estimated Blood Loss (mL): 200 ml. Description of Procedure: The patient was taken to OR in supine position and was placed under general anesthesia. She was then placed in the prone position. Her bilateral ischial areas were prepped and draped in the usual fashion. Using xylocaine with epinephrine, both pressure sores were infiltrated. SCD's were placed for DVT prophylaxis. Perioperative antibiotics were given intravenously. After waiting 5 minutes for the anesthetic to take effect, I excised the left ischial pressure sore into the subcutaneous tissue. All the necrotic skin was excised. There was firmness and fat necrosis in the subcutaneous tissue. The ischial bone is palpable but was not exposed. There was some soft tissue covering the bone that was soft and viable. The excision extended into the surrounding muscle. Hemostasis was obtained with electrocautery. The wound was irrigated with saline. The size of the wound after the excision was 14 x 14 x 5 cm. Half the soft tissue was sent to Pathology for analysis to rule out carcinoma and half the soft tissue was sent to Microbiology for culture. I then excised the right ischial pressure sore in an elliptical fashion. This was a more superficial pressure sore into the subcutaneous tissue (Stage III). Because it was a smaller pressure, I felt I could excise it and close it primarily. After excision, half the soft tissue was sent to Pathology for analysis to rule out carcinoma and half the soft tissue was sent to Microbiology for culture. The wound was irrigated with saline. Hemostasis was obtained with electrocautery. I then closed the right ischial pressure sore wound in a layered fashion using 2-0 Vicryl interrupted sutures for the deep dermis and subcutaneous tissue. The skin was approximated with 3-0 Nylon simple interrupted and vertical mattress interrupted sutures. The length of the layered closure was 6 cm. Antibiotic ointment was applied to the suture line followed by a gauze dressing. For the left ischial pressure sore, I packed it with Mepitel nonadherent dressing followed by Kerlix gauze and Betadine followed by dry Kerlix gauze and ABD pads. Patient tolerated the procedure well and was sent to PACU in satisfactory condition. She will be sent back upstairs for postop care. The VAC will be placed tomorrow to the left ischial pressure sore wound. A positive culture may necessitate antibiotic modification. I anticipate increased metabolic demands from the size of these wounds. Will encourage nutritional supplementation with protein to help the healing process. She will followup after discharge [facility]. Grafts/Implants Used: None. - Complications None. - Admit VTE Documentation VTE Present on Admission: No VTE Mechan Device Prophylaxis: SCD's VTE Pharm Prophylaxis ordered?: Yes Code Visit Surgery Charges CPT - 88064 ICD-10 - L89.324, I96, E11.9, R32 53359 L89.313, E11.9, R32 98178 L89.313, E11.9, R32
[2017-07-25] MEDS: Menthol/Lanolin/Calamine/Znox 113 GM Tube 1 APPLIC TOPICAL (21:49)
[2017-07-25] MEDS: Heparin Injection 5,000 UNITS/ML Syringe 5000 UNITS SC (21:54)
[2017-07-25] MEDS: Metoprolol Tartrate 100 MG Tablet PO (21:54)
[2017-07-25] MEDS: MethylPREDNISolone DosePak 4 MG BOX PO (21:54)
[2017-07-25] MEDS: Nystatin Powder 15gm Bottle 1 APPLIC TOPICAL (21:55)
[2017-07-26] MEDS: tiZANidine HCl 2 MG Tablet 4 MG PO ×2 (01:31→12:39)
[2017-07-26 03:19] VITALS: BP 116/62; PULSE 63; RESP 18; TEMP 36.4; O2SAT 100
[2017-07-26 06:33] LABS: Hematocrit 31.9 % (37-47); Hemoglobin 10.3 g/dl (12.0-15.0); Mean Corp Hgb Conc 32.3 g/gl (32-36); Mean Corpuscular Hgb 29.6 pg (27.0-32.0); Mean Corpuscular Volume 91.7 fL (81-99); Mean Platelet Vol. 10.6 fl (6.2-12.0); Platelet Count 121 K/mm3 (150-450); RBC Distribution Width CV 13.3 % (11.6-14.6); Red Blood Count 3.48 M/mm3 (4.2-5.4); White Blood Count 6.6 K/mm3 (4.4-11.0)
[2017-07-26 06:36] LABS: Scan Indicated on CBC? Y/N NO
[2017-07-26] MEDS: Heparin Injection 5,000 UNITS/ML Syringe 5000 UNITS SC ×2 (06:38→14:47)
[2017-07-26 06:49] LABS: Anion Gap 9 (5-15); BUN 30 mg/dL (7-18); BUN/Creat Ratio 31.7 RATIO (10-20); Calcium,Total 8.6 mg/dL (8.5-10.1); Chloride 102 mmol/L (98-107); Creatinine, Serum 0.95 mg/dL (0.55-1.02); EST Glomerular Filtration Rate 64 mL/min (>60); Est Glom Filt Rate - Afr Amer 77 mL/min (>60); Estimated Creatinine Clearance 47.52 ml/min; Glucose 285 mg/dL (74-106); Potassium 4.3 mmol/L (3.5-5.1); Sodium Level 137 mmol/L (136-145)
[2017-07-26 07:33] VITALS: BP 130/66; PULSE 61; RESP 16; TEMP 36.8; O2SAT 98
[2017-07-26 07:35] VITALS: PULSE 61
[2017-07-26] MEDS: Metoprolol Tartrate 50 MG Tablet PO (07:35)
[2017-07-26] MEDS: MethylPREDNISolone DosePak 4 MG BOX PO (07:35)
[2017-07-26] MEDS: Nystatin Powder 15gm Bottle 1 APPLIC TOPICAL (10:56)
[2017-07-26] MEDS: Citalopram 20 MG Tablet PO (10:56)
[2017-07-26] MEDS: Menthol/Lanolin/Calamine/Znox 113 GM Tube 1 APPLIC TOPICAL (10:57)
[2017-07-26] MEDS: levoFLOXacin 500 MG Tablet PO (11:01)
--- NOTE | 2017-07-26 11:54 | PCM.PN.SRG ---
Subjective: Postop #1 Patient is resting comfortably. VAC applied to left ischial pressure sore. Some pain noted. - Physical Exam General: Alert, Oriented x3 HEENT: PERRLA, EOMI Neck: Supple Lungs: Clear to auscultation Cardiovascular: Regular rate, Regular Rhythm Abdomen: Soft, Non-Distended Skin: Ulcer/ Wound - left ischial pressure sore wound stable. No bleeding noted. VAC applied., Incision - right ischial incision is dry and intact. Neurological: Cranial nerves II-XII grossly intact Psych/Mental Status: Normal Affect, Appropriate Vital Signs Temp Pulse Resp BP Pulse Ox 98.2 F 61 16 130/66 H 98 07/26/17 07:33 07/26/17 07:35 07/26/17 07:33 07/26/17 07:33 07/26/17 07:33 Oxygen Flow Rate (L/min) 2 Oxygen Delivery Method Room Air Weight: 284 lb 13.396 oz Body Mass Index (BMI) 52.4 Intake and Output for Last 24 Hours 07/24/17 07/25/17 07/26/17 23:59 23:59 23:59 Intake Total 1690 / 1690 1125 / 1125 700 / 700 Output Total 0 / 0 5375 / 5375 1175 / 1175 Balance -360 / -360 -4250 / -4250 -475 / -475 Microbiology Past 72 Hours 07/25/17 12:00 Gram Stain - Final Tissue - Ischium Wound Culture - Preliminary Gram negative virginie 07/25/17 12:00 Gram Stain - Final Tissue - Ischium Wound Culture - Preliminary No growth-Final to follow Laboratory Tests Past 24 Hrs 07/26/17 07/26/17 06:04 06:04 WBC 6.6 RBC 3.48 L Hgb 10.3 L Hct 31.9 L MCV 91.7 MCH 29.6 MCHC 32.3 RDW 13.3 RDW Differential 43.0 Plt Count 121 L MPV 10.6 Sodium 137 Potassium 4.3 Chloride 102 Carbon Dioxide 26.0 Anion Gap 9 BUN 30 H Creatinine 0.95 Estim Creat Clear Calc 47.52 Est GFR (MDRD) Af Amer 77 Est GFR (MDRD) Non-Af 64 BUN/Creatinine Ratio 31.7 H Glucose 285 H Calcium 8.6 Medical Necessity - Tobacco Use Smoking Status: Never smoker Tobacco Use: Non-smoker Assessment/Plan 1. Left ischial pressure sore into the muscle, Stage IV. 2. Right ischial pressure sore into subcutaneous tissue, Stage III. 3. Diabetes mellitus. 4. Incontinence. 5. s/p excision left ischial pressure sore into the muscle, Stage IV and excision right ischial pressure sore into the subcutaneous tissue, Stage III, with 6 cm layered closure. VAC applied to left ischial pressure sore. To be changed three times per week at 150 mmHg continuous suction. Right ischial incision dry and intact. Operative culture shows Gram negative virginie thus far. Will continue Levaquin and Cleocin. Anticipate increased metabolic demands from the wounds and from her upcoming surgical excision. Prealbumin was quite low at 9.0 and will encourage nutritional supplementation with protein to help the healing process. To help with the incontinence, a guo was placed. Depending on the extent of the bilateral ischial wounds after excision, the patient may be at increased risk for stool contamination. At that time, she would need a diverting colostomy. A colostomy would be difficult because of the presence of her large umbilical hernia. She would have to go to a tertiary center for a diverting colostomy if one is needed in the future. At discharge would recommend the patient go to a ECF initially to help manage her complex wounds and probable need for IV antibiotics. In the future, if the patient expresses interest in wound closure, can consider closure with fasciocutaneous flaps. Wouldn't do aggressive muscle flaps because detaching part of the hamstring muscles would hinder her ambulation. Before that surgery, she would need to have her HgbA1c less than 8 and also a determination at that time for a diverting colostomy would be made. After discharge, can followup at the [facility] Center.
--- NOTE | 2017-07-26 12:04 | OP.PCM_ITS ---
Report of Operation Date of Procedure: 07/25/17 Pre-Operative Diagnosis: 1. Left ischial pressure sore, Unstageable at present , probable Stage IV after debridement. 2. Right ischial pressure sore, Stage II at present, probable Stage III or IV after debridement. 3. Diabetes mellitus. 4. Incontinence. Post-Operative Diagnosis: 1. Left ischial pressure sore into the muscle, Stage IV. 2. Right ischial pressure sore into subcutaneous tissue, Stage III. 3. Diabetes mellitus. 4. Incontinence. Surgery/Procedure Performed:: 1. Excision left ischial pressure sore into the muscle, Stage IV. 2. Excision right ischial pressure sore into the subcutaneous tissue, Stage III, with 6 cm layered closure. Description of Surgical Findings:: The patient is a 62 year old F who was admitted with acute on chronic back pain and weakness. Upon admission it was noted the patient had bilateral ischial pressure sores with odor. Her initial WBC was normal at 9.6. Because of her weakness, she does not remember but she must have fallen out of her chair onto the floor and was unable to get herself up. Family found her this morning and called EMS. She states her back pain has been worsening for the past few weeks and she has radiating pain down both hips and stabbing pain in her buttocks. She states she has discussed seeing pain management with her primary care physician due to chronic back pain. Patient states she is in the process of undergoing bariatric surgery with the [facility] and will have a hernia repair during the procedure. She states she has lost approximately 100 pounds in preparation for surgery. Because she has difficulty getting up when she falls, she states when she urinates or has a bowel movement, she doesn't clean up right away and by laying in urine and/or stool at times increases risk of skin breakdown which has led to her developing bilateral ischial pressure sores. She is becoming more incontinent probably from the worsening low back pain and associated neuropathy. CT Pelvis was done and showed no acute bony injury of the pelvis and subcutaneous edema in the gluteal regions bilaterally, left more than right without drainable collection or subcutaneous gas and prominent ventral hernia in the lower anterior abdominal wall containing bowel loops and no bowel obstruction. Patient was informed of the risks and complications of the procedure including alternatives to surgery. These were discussed with her personally. She voices understanding and wishes to proceed. Size of defect left ischial area - 14 x 14 x 5 cm. 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 Left ischial pressure sore to Pathology and Microbiology. 2. Right ischial pressure sore to Pathology and Microbiology. Drains: None. Estimated Blood Loss (mL): 200 ml. Description of Procedure: The patient was taken to OR in supine position and was placed under general anesthesia. She was then placed in the prone position. Her bilateral ischial areas were prepped and draped in the usual fashion. Using xylocaine with epinephrine, both pressure sores were infiltrated. SCD's were placed for DVT prophylaxis. Perioperative antibiotics were given intravenously. After waiting 5 minutes for the anesthetic to take effect, I excised the left ischial pressure sore into the subcutaneous tissue. All the necrotic skin was excised. There was firmness and fat necrosis in the subcutaneous tissue. The ischial bone is palpable but was not exposed. There was some soft tissue covering the bone that was soft and viable. The excision extended into the surrounding muscle. Hemostasis was obtained with electrocautery. The wound was irrigated with saline. The size of the wound after the excision was 14 x 14 x 5 cm. Half the soft tissue was sent to Pathology for analysis to rule out carcinoma and half the soft tissue was sent to Microbiology for culture. I then excised the right ischial pressure sore in an elliptical fashion. This was a more superficial pressure sore into the subcutaneous tissue (Stage III). Because it was a smaller pressure, I felt I could excise it and close it primarily. After excision, half the soft tissue was sent to Pathology for analysis to rule out carcinoma and half the soft tissue was sent to Microbiology for culture. The wound was irrigated with saline. Hemostasis was obtained with electrocautery. I then closed the right ischial pressure sore wound in a layered fashion using 2-0 Vicryl interrupted sutures for the deep dermis and subcutaneous tissue. The skin was approximated with 3-0 Nylon simple interrupted and vertical mattress interrupted sutures. The length of the layered closure was 6 cm. Antibiotic ointment was applied to the suture line followed by a gauze dressing. For the left ischial pressure sore, I packed it with Mepitel nonadherent dressing followed by Kerlix gauze and Betadine followed by dry Kerlix gauze and ABD pads. Patient tolerated the procedure well and was sent to PACU in satisfactory condition. She will be sent back upstairs for postop care. The VAC will be placed tomorrow to the left ischial pressure sore wound. A positive culture may necessitate antibiotic modification. I anticipate increased metabolic demands from the size of these wounds. Will encourage nutritional supplementation with protein to help the healing process. She will followup after discharge at the [facility]. Grafts/Implants Used: None. - Complications None. - Admit VTE Documentation VTE Present on Admission: No VTE Mechan Device Prophylaxis: SCD's VTE Pharm Prophylaxis ordered?: Yes Code Visit Surgery Charges CPT - 18103 ICD-10 - L89.324, I96, E11.9, R32 92083 L89.313, E11.9, R32 27086 L89.313, E11.9, R32
[2017-07-26 12:31] LABS: Bedside Glucose 287 mg/dL (70-110)
[2017-07-26] MEDS: Clindamycin 600 MG/50 ML BAG 100 MG IV (14:47)
[2017-07-26 15:41] VITALS: BP 129/51; PULSE 71; RESP 16; TEMP 36.8; O2SAT 100
--- NOTE | 2017-07-26 15:58 | PCM.TXEXTCAR ---
- Diet 07/22/17 12:55 Diet: Regular Diet Food consistency:: Regular Liquid Consistency:: Regular/Thin - Routine Orders/Code Status Suppository Type: Dulcolax 10mg Suppository Frequency: Daily PRN Routine Lab Work: CBC, BMP Code Status: Full Code - Wound(s) Posterior Fat Pocket Wound Type: Skin Tear Pannus Wound Type: moisture related open area to the anterior pubic area Coccyx Wound Type: Stasis Ulcer Right buttocks Wound Type: Pressure Injury Dressing Change: applied Mepilex dressing left buttock Wound Type: Pressure Injury Dressing Change: Mepilex PETER BUTTOCKS Wound Type: Surgical Incision Dressing Change: ABD, MEPITEL, MEDIPORE Abd folds/pannus folds Wound Type: excoriation - Therapies Physical Therapy: Eval and Treat Occupational Therapy: Eval and Treat - Problem/Diagnosis (1) Pressure sore of left ischium, unstageable Status: Chronic Comment: anticipate Stage IV after excision Current Visit: No (2) Right ischial pressure sore, stage 2 Status: Chronic Comment: may be higher stage after excision Current Visit: No (3) Debility Status: Chronic Current Visit: Yes (4) Incontinence of urine Status: Chronic Current Visit: No (5) Thrombocytopenia Status: Chronic Current Visit: No (6) Normochromic normocytic anemia Status: Chronic Current Visit: No (7) Hyperlipidemia Status: Chronic Current Visit: No (8) Morbid obesity Status: Chronic Current Visit: No (9) Osteoarthritis Status: Chronic Current Visit: No (10) Depression Status: Chronic Current Visit: No (11) Hypertension Status: Chronic Current Visit: No (12) Type 2 diabetes mellitus Status: Chronic Current Visit: No - Allergies/Procedures Done in Hospital Allergies/Adverse Reactions: Allergies amoxicillin Adverse Reaction (Verified 07/22/17 08:26) Other latex Adverse Reaction (Verified 07/22/17 08:26) Other Procedures: - - excision and debridement of pressure injuries. - Type of Care/Length of Stay Estimated LOS: Convalescent Care Less Than 30 days Type of Care Needed: Skilled Rehab Potential: Fair Prognosis: Fair - Additional Orders/Day of Discharge Day of Discharge: 07/26/17 - Dietary and Speech Recommendations Dietitian Recommendations/Changes: Blood glucose high--Suggest diet change to 1800 calorie carbohydrate-controlled, cardiac. Continue Bernard 1 packet BID for wound healing. - Follow Up Care Primary Care Physician: Brittany Sorenson MD [Primary Care Provider] - Please follow up with your Primary Care Physician in: 2 weeks Please Follow Up With: Vasiliy Valle MD When: within 1 week
--- NOTE | 2017-07-26 16:02 | PCM.DC.SUM ---
Discharge Date and Diagnosis Date of Admission: 07/22/17 Date of Discharge: 07/26/17 - Primary Discharge Diagnosis Left and Right ischial pressure sore stage IV and III respectively Acute on chronic back pain Debility Morbid obesity T2DM Chronic thrombocytopenia HLD HTN Depression Chronic normocytic anemia - Secondary Discharge Diagnosis Chronic Problems Debility (Chronic) Right ischial pressure sore, stage 2 (Chronic) may be higher stage after excision Pressure sore of left ischium, unstageable (Chronic) anticipate Stage IV after excision Incontinence of urine (Chronic) Thrombocytopenia (Chronic) Normochromic normocytic anemia (Chronic) Acute panniculitis (Chronic) Hyperlipidemia (Chronic) Umbilical hernia (Chronic) Morbid obesity (Chronic) Osteoarthritis (Chronic) Depression (Chronic) Hypertension (Chronic) Type 2 diabetes mellitus (Chronic) Hospital Course and Treatment Imaging Results: RAD/Lumbar Spine 2 or 3 Views IMPRESSION: Degenerative changes of the spine, as detailed above. Exaggerated lordosis. CT/Pelvis without IV Contrast IMPRESSION: No acute bony injury of the pelvis. Subcutaneous edema in the gluteal regions bilaterally, left more than right without drainable collection or subcutaneous gas. Prominent ventral hernia in the lower anterior abdominal wall containing bowel loops. No bowel obstruction. Consultations 07/23/17 06:55 Consult: Onc/Wound/magneto electrician Routine Comment: Reason for Consult:: buttocks,pannus Operations: - - Excision and debridement of ischial pressure injuries Procedures: None Summary of Care Provided: Physical exam on day of discharge: General: Resting comfortably NAD Psych: A/Ox3 normal affect HEENT: PEARRLA AT NC Neck: Supple NT CV: RRR no m/t/r/g/h Resp: CTA Abd: [id number] Soft NT no guarding or rigidity Ext: DP2+= no edema Skin: W/D normal turgor Lymph/Heme: No active bleeding or adenopathy Neuro: CN2-12 intact Hospital course: The patient is a 62 year old F with a hx of chronic back pain, osteoarthritis, for which she takes MS contin and gabapentin, who presented to the ER after falling out of her chair and unable to get up with pain radiating down both hips and buttocks. She was admitted tot [facility] for intractable back pain and debility. She was found to have BL ischial pressure injuries and plastic surgery was consulted. She underwent excision and debridement of these and was placed on levaquin PO and clindamycin IV. Wound cultures were taken and these are pending. A wound vac was placed. She had well controlled pain, but remained significantly debilitated and required SNF placement. Her blood sugars were poorly controlled here and she was placed on metformin which she had been previously prescribed in the past. She should maintain the guo for now as her urinary incontinence is likely to contaminate the wound. Prelim cultures demonstrate gram negative rods. MSSA and MRSA screen is negative. She will continue clinda and levaquin for 7 days and continue wound care. She is discharged in stable condition to SNF. No fever or white count throughout stay. She will need to be closely followed by Dr. Valle in TCU. This patient was seen by Elias Nascimento PA-C under the supervision of Doctor King. [] Discharge Diet: Low fat/ Low Cholesterol, 1800 Calorie Control Diet, 2000 mg Sodium Diet Discharge Activity: Return to Normal Activity Home Medications: Medications to take at Discharge Citalopram [Celexa] 20 mg PO DAILY 07/10/16 Metoprolol Tartrate [Lopressor (beta tristen)] 50 mg PO BREAKFAST 07/10/16 Metoprolol Tartrate [Lopressor (beta tristen)] 100 mg PO QHS 07/10/16 Nystatin Powder [Mycostatin Powder] 1 applic TOPICAL BID #1 bottle 06/02/17 Gabapentin [Neurontin] 300 mg PO BID 07/22/17 Acetaminophen [Tylenol Tablet] 650 mg PO Q6H PRN PRN tablet 07/26/17 Clindamycin [Cleocin IVPB] 600 mg IV Q8 bag 07/26/17 Diclofenac [Voltaren] 50 mg PO TID PRN tablet 07/26/17 Menthol/Lanolin/Calamine/Znox [Calmoseptine Ointment] 1 applic TOPICAL BID tube 07/26/17 Metformin HCl [Glucophage] 500 mg PO BIDCM tablet 07/26/17 MethylPREDNISolone DosePak [Medrol DosePak] 4 mg PO 0800,2200 tablet 07/26/17 Morphine Sulfate [Ms Contin] 60 mg PO BID #6 tablet.er 07/26/17 Mupirocin [Bactroban] 1 applic TOPICAL .QDAILY tube 07/26/17 Nutritional Supplement [Bernard - ORANGE FLAVOR] 1 packet PO BIDCM packet 07/26/17 Tizanidine HCl [Zanaflex] 4 mg PO Q6H PRN tablet 07/26/17 levoFLOXacin tablet [Levaquin tablet] 500 mg PO DAILY@0600 tablet 07/26/17 Following Prescrptions Were Given to Patient: Morphine Sulfate [Ms Contin] 60 mg PO BID #6 tablet.er Primary Care Physician: Brittany Sorenson MD [Primary Care Provider] - Please follow up with your Primary Care Physician in: 2 weeks Please Follow Up With: Vasiliy Valle MD When: within 1 week Disposition: [facility] facility Minutes spent on discharge:: 40 Patient Condition:: Stable Medical Necessity - Tobacco Use Smoking Status: Never smoker Tobacco Use: Non-smoker Meaningful Use Info Meaningful Use Diagnoses (Choose all that apply): None applicable
--- NOTE | 2017-07-26 16:14 | DS.PCM_ITS ---
Discharge Date and Diagnosis Date of Admission: 07/22/17 Date of Discharge: 07/26/17 - Primary Discharge Diagnosis Left and Right ischial pressure sore stage IV and III respectively Acute on chronic back pain Debility Morbid obesity T2DM Chronic thrombocytopenia HLD HTN Depression Chronic normocytic anemia - Secondary Discharge Diagnosis Chronic Problems Debility (Chronic) Right ischial pressure sore, stage 2 (Chronic) may be higher stage after excision Pressure sore of left ischium, unstageable (Chronic) anticipate Stage IV after excision Incontinence of urine (Chronic) Thrombocytopenia (Chronic) Normochromic normocytic anemia (Chronic) Acute panniculitis (Chronic) Hyperlipidemia (Chronic) Umbilical hernia (Chronic) Morbid obesity (Chronic) Osteoarthritis (Chronic) Depression (Chronic) Hypertension (Chronic) Type 2 diabetes mellitus (Chronic) Hospital Course and Treatment Imaging Results: RAD/Lumbar Spine 2 or 3 Views IMPRESSION: Degenerative changes of the spine, as detailed above. Exaggerated lordosis. CT/Pelvis without IV Contrast IMPRESSION: No acute bony injury of the pelvis. Subcutaneous edema in the gluteal regions bilaterally, left more than right without drainable collection or subcutaneous gas. Prominent ventral hernia in the lower anterior abdominal wall containing bowel loops. No bowel obstruction. Consultations 07/23/17 06:55 Consult: Onc/Wound/air deodorizer servicer Routine Comment: Reason for Consult:: buttocks,pannus Operations: - - Excision and debridement of ischial pressure injuries Procedures: None Summary of Care Provided: Physical exam on day of discharge: General: Resting comfortably NAD Psych: A/Ox3 normal affect HEENT: PEARRLA AT NC Neck: Supple NT CV: RRR no m/t/r/g/h Resp: CTA Abd: [id number] Soft NT no guarding or rigidity Ext: DP2+= no edema Skin: W/D normal turgor Lymph/Heme: No active bleeding or adenopathy Neuro: CN2-12 intact Hospital course: The patient is a 62 year old F with a hx of chronic back pain, osteoarthritis, for which she takes MS contin and gabapentin, who presented to the ER after falling out of her chair and unable to get up with pain radiating down both hips and buttocks. She was admitted tot [facility] for intractable back pain and debility. She was found to have BL ischial pressure injuries and plastic surgery was consulted. She underwent excision and debridement of these and was placed on levaquin PO and clindamycin IV. Wound cultures were taken and these are pending. A wound vac was placed. She had well controlled pain, but remained significantly debilitated and required SNF placement. Her blood sugars were poorly controlled here and she was placed on metformin which she had been previously prescribed in the past. She should maintain the guo for now as her urinary incontinence is likely to contaminate the wound. Prelim cultures demonstrate gram negative rods. MSSA and MRSA screen is negative. She will continue clinda and levaquin for 7 days and continue wound care. She is discharged in stable condition to SNF. No fever or white count throughout stay. She will need to be closely followed by Dr. Valle in TCU. This patient was seen by Elias Nascimento PA-C under the supervision of Doctor King. [] Discharge Diet: Low fat/ Low Cholesterol, 1800 Calorie Control Diet, 2000 mg Sodium Diet Discharge Activity: Return to Normal Activity Home Medications: Medications to take at Discharge Citalopram [Celexa] 20 mg PO DAILY 07/10/16 Metoprolol Tartrate [Lopressor (beta tristen)] 50 mg PO BREAKFAST 07/10/16 Metoprolol Tartrate [Lopressor (beta tristen)] 100 mg PO QHS 07/10/16 Nystatin Powder [Mycostatin Powder] 1 applic TOPICAL BID #1 bottle 06/02/17 Gabapentin [Neurontin] 300 mg PO BID 07/22/17 Acetaminophen [Tylenol Tablet] 650 mg PO Q6H PRN PRN tablet 07/26/17 Clindamycin [Cleocin IVPB] 600 mg IV Q8 bag 07/26/17 Diclofenac [Voltaren] 50 mg PO TID PRN tablet 07/26/17 Menthol/Lanolin/Calamine/Znox [Calmoseptine Ointment] 1 applic TOPICAL BID tube 07/26/17 Metformin HCl [Glucophage] 500 mg PO BIDCM tablet 07/26/17 MethylPREDNISolone DosePak [Medrol DosePak] 4 mg PO 0800,2200 tablet 07/26/17 Morphine Sulfate [Ms Contin] 60 mg PO BID #6 tablet.er 07/26/17 Mupirocin [Bactroban] 1 applic TOPICAL .QDAILY tube 07/26/17 Nutritional Supplement [Bernard - ORANGE FLAVOR] 1 packet PO BIDCM packet Tizanidine HCl [Zanaflex] 4 mg PO Q6H PRN tablet 07/26/17 levoFLOXacin tablet [Levaquin tablet] 500 mg PO DAILY@0600 tablet 07/26/17 Following Prescrptions Were Given to Patient: Morphine Sulfate [Ms Contin] 60 mg PO BID #6 tablet.er Primary Care Physician: Brittany Sorenson MD [Primary Care Provider] - Please follow up with your Primary Care Physician in: 2 weeks Please Follow Up With: Vasiliy Valle MD When: within 1 week Disposition: Group Home facility Minutes spent on discharge:: 40 Patient Condition:: Stable Medical Necessity - Tobacco Use Smoking Status: Never smoker Tobacco Use: Non-smoker Meaningful Use Info Meaningful Use Diagnoses (Choose all that apply): None applicable
[2017-07-26 20:45] LABS: Bedside Glucose 304 mg/dL (70-110)
== END 2017-07-26 16:46 | disposition skilled nursing facility (03) | DRG 463 ==
LOC: ED 08:47 → MS3 13:24
PROVIDERS: Anesthesiology; Nurse Practitioner Family; Surgery; Admitting Provider Internal Medicine; Emergency Provider Emergency Medicine; Family Provider Internal Medicine; PCP Internal Medicine; Visit Provider Internal Medicine
PROC: 0KBP0ZZ Excision of Left Hip Muscle, Open Approach (ICD-10-PCS; CPT 15999; principal; 2017-07-25 10:00)
DX: M54.5 Low back pain (principal); L89.313 Pressure ulcer of right buttock, stage 3; D69.6 Thrombocytopenia, unspecified; E11.40 Type 2 diabetes mellitus with diabetic neuropathy, unspecified; E66.01 Morbid (severe) obesity due to excess calories; L89.324 Pressure ulcer of left buttock, stage 4; Z68.43 Body mass index [BMI] 50.0-59.9, adult; E78.5 Hyperlipidemia, unspecified; F32.9 Major depressive disorder, single episode, unspecified; I10 Essential (primary) hypertension; K42.9 Umbilical hernia without obstruction or gangrene; D64.9 Anemia, unspecified; L98.499 Non-pressure chronic ulcer of skin of other sites with unspecified severity; M19.90 Unspecified osteoarthritis, unspecified site; G89.29 Other chronic pain; R32 Unspecified urinary incontinence; M79.3 Panniculitis, unspecified
CPT/HCPCS: 36415; 72100; 72192; 80048; 82962; 84134; 85025; 85027; 85610; 85652; 85730; 86140; 87070; 87075; 87076; 87077; 87102; 87186; 87205; 87206; 87640; 88305; 88311; 88312; 93005; 97110; 97162; 97166; 97802; 99285; A4216; J2405

== ENCOUNTER 2017-07-26 16:52 | Inpatient (IN) | payer MEDICARE, SELFPAY ==
--- NOTE | 2017-07-26 17:02 | NURSING ---
Pt arrived at 16:50 via bed from [facility]
--- NOTE | 2017-07-26 17:15 | PCA ---
Phone call to Hitesh at [facility] to update admission to TCU from [facility]
[2017-07-26 17:25] LABS: Bedside Glucose 265 mg/dL (70-110)
[2017-07-26 17:27] VITALS: BP 134/67; PULSE 66; RESP 18; TEMP 36.8; O2SAT 97
[2017-07-26] MEDS: Gabapentin 300 MG Capsule PO (18:27)
[2017-07-26 20:09] VITALS: BMI 50.1
[2017-07-26 20:10] VITALS: PULSE 71; RESP 15; O2SAT 98; BMI 50.2
--- NOTE | 2017-07-26 20:55 | PCM.HP.STD ---
Problem List (1) Low back pain Status: Chronic (2) Decubitus ulcer of left ischium, stage 4 Status: Acute (3) Right ischial pressure sore, stage 3 Status: Acute (4) Diabetic neuropathy Status: Acute (5) Anemia Status: Chronic (6) Panniculitis Status: Chronic (7) Diabetes mellitus Status: Chronic (8) Debility Status: Chronic (9) Incontinence of urine Status: Chronic (10) Thrombocytopenia Status: Chronic (11) Hyperlipidemia Status: Chronic (12) Morbid obesity Status: Chronic (13) Osteoarthritis Status: Chronic (14) Depression Status: Chronic Qualifiers: (15) Hypertension Status: Chronic Qualifiers: History of Present Illness Date of Admission: 07/26/17 Chief Complaint: Here for rehabilitation, strengthening, wound care, prior to discharge home alone. The patient is a 62 year old Female with below past medical history presented to [facility] 07/21/2017 with back pain. Chronic back pain on MS Filemon. Hemoglobin 11.0, Hematocrit 34.6, Platelets 140,000. Glucose 129, BUN 21. X-ray of LS spine showed chronic degenerative changes. Dilaudid, Zofran given, unable to walk, unable to care for self. 07/22/2017 Admit to Hospital. MS Filemon, Voltaren, Medrol dose pack for low back pain. 07/23/2017 Bilateral buttock pressure ulcer. 07/25/2017 Dr. Valle consulted for pressure ulcers. 07/23/2017 CT pelvis bilateral gluteal edema left worse than right, ventral hernia. 07/25/2017 Dr. Valle debrided bilateral ischial pressure ulcers, wound vac applied. 07/25/2017 EKG sinus rhythm 1st degree AV block, otherwise normal. 07/25/2017 Wound care for bilateral ischial ulcers. Guo catheter for urinary incontinence, to prevent wound contamination. Wound cultures grew gram negative rods. MSSA, MRSA negative. Clindamycin, Levaquin x 7 days to finish treatment. 07/26/2017 Admit to TCU for rehabilitation, strengthening, wound care, prior to discharge alone. Past Medical History Past Medical History (Chronic Problems): Chronic Problems Debility (Chronic) Low back pain (Chronic) Anemia (Chronic) Panniculitis (Chronic) Diabetes mellitus (Chronic) Right ischial pressure sore, stage 2 (Chronic) may be higher stage after excision Pressure sore of left ischium, unstageable (Chronic) anticipate Stage IV after excision Incontinence of urine (Chronic) Thrombocytopenia (Chronic) Normochromic normocytic anemia (Chronic) Acute panniculitis (Chronic) Hyperlipidemia (Chronic) Umbilical hernia (Chronic) Morbid obesity (Chronic) Osteoarthritis (Chronic) Depression (Chronic) Hypertension (Chronic) Type 2 diabetes mellitus (Chronic) Allergies amoxicillin Adverse Reaction (Verified 07/22/17 08:26) Other latex Adverse Reaction (Verified 07/22/17 08:26) Other Home Medications: Ambulatory Orders Medication Instructions Recorded Citalopram [Celexa] 20 mg PO DAILY 07/10/16 Metoprolol Tartrate [Lopressor 50 mg PO BREAKFAST 07/10/16 (beta tristen)] Metoprolol Tartrate [Lopressor 100 mg PO QHS 07/10/16 (beta tristen)] Gabapentin [Neurontin] 300 mg PO BID 07/22/17 Acetaminophen [Tylenol Tablet] 650 mg PO Q6H PRN PRN tablet 07/26/17 Clindamycin [Cleocin IVPB] 600 mg IV Q8 07/26/17 Diclofenac [Voltaren] 50 mg PO TID PRN tablet 07/26/17 Menthol/Lanolin/Calamine/Znox 1 applic TOPICAL BID 07/26/17 [Calmoseptine Ointment] Metformin HCl [Glucophage] 500 mg PO BIDCM 07/26/17 Morphine Sulfate [Ms Contin] 60 mg PO BID #6 tablet.er 07/26/17 Mupirocin [Bactroban] 1 applic TOPICAL .QDAILY 07/26/17 Nutritional Supplement [Bernard - 1 packet PO BIDCM 07/26/17 ORANGE FLAVOR] Nystatin Powder [Mycostatin Powder] 1 applic TOPICAL BID 07/26/17 Tizanidine HCl [Zanaflex] 4 mg PO Q6H PRN tablet 07/26/17 levoFLOXacin tablet [Levaquin 500 mg PO DAILY@0600 07/26/17 tablet] Surgical History: cholecystectomy, - - Bilateral ischial wound debridement. 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 LAUNDRY FOLDER history Lives: Alone Smoking Status: Never smoker Tobacco Use: Non-smoker Alcohol: None Drugs: None - *Family History Paternal History Items: Diabetes Maternal History Items: No pertinent history Review of Systems Constitutional: Denies: Chills, Fever, Weight Change HEENT: Denies: Head Aches, Sinus Congestion, Sinus Drainage Cardiovascular: Denies: Chest Pain, Palpitations Respiratory: Denies: Cough, Shortness of breath at rest, Sputum production Gastrointestinal: Denies: Abdominal Pain, Nausea, Vomiting Genitourinary: Denies: Dysuria Musculoskeletal: Denies: Joint Pain, Joint Tenderness Skin: Reports: Wounds - Bilateral ischial pressure ulcers.. Denies: Rash Neurological: Denies: Numbness, Tingling, Focal weakness Psychiatric: Denies: Anxiety, Depression, Homicidal Ideations, Suicidal Ideations Hematologic/ Lymphatic: Denies: Easy Bruising, Easy Bleeding VTE Information - Inpt Only VTE Present on Admission: No VTE Mechan Device Prophylaxis: Knee High VALDO Hose VTE Pharm Prophylaxis ordered?: Yes Patient Problems: Active and Suspected Problems Decubitus ulcer of left ischium, stage 4 (Acute) Right ischial pressure sore, stage 3 (Acute) Diabetic neuropathy (Acute) - Physical Exam General: Alert, Oriented x3, Cooperative HEENT: Atraumatic, PERRLA, EOMI, Normocephalic Neck: Supple, No JVD, Negative Carotid Bruits Lungs: Clear to auscultation, Normal air movement Cardiovascular: Regular rate, No murmurs Abdomen: Bowel Sounds Present, Soft, Non Tender, - - Indwelling guo catheter. Extremities: No edema, Capillary Refill Less than 3 Seconds Skin: No rashes, Ulcer/ Wound - Stage 4 left ischial pressure ulcer, Stage 3 right ischial pressure ulcer. Wound vacs applied. Musculoskeletal: No Tenderness to Palpation of Joints or Extremities Neurological: Cranial nerves II-XII grossly intact Psych/Mental Status: Normal Affect, Appropriate Vital Signs Temp Pulse Resp BP Pulse Ox 98.2 F 66 18 134/67 H 97 07/26/17 17:27 07/26/17 17:27 07/26/17 17:27 07/26/17 17:27 07/26/17 17:27 Oxygen Delivery Method Room Air Weight: 124.4 kg Body Mass Index (BMI) 50.1 Finger Stick Blood Glucose 145 Intake and Output for Last 24 Hours 07/24/17 07/25/17 07/26/17 23:59 23:59 23:59 Intake Total 240 / 240 Balance 240 / 240 POC Glucose 07/26/17 17:21 POC Glucose 265 H Assessment/Plan Active and Suspected Problems Decubitus ulcer of left ischium, stage 4 (Acute) Right ischial pressure sore, stage 3 (Acute) Diabetic neuropathy (Acute) 62 year old female with below past medical history hospitalized for intractable low back pain, complicated by bilateral ischial pressure ulcers requiring debridement per Dr. Valle, with wound vac application, admitted to TCU for rehabilitation, strengthening, wound care, prior to discharge home alone. Debility - PT/OT. Pain - MS Contin 60MG BID, Tylenol 1000MG Q8H PRN mild pain, Diclofenac 50MG TID PRN moderate pain. Bowel - Miralax 17GM daily, Senna/colace 2 tablets BID, Dulcolax 10MG FL daily PRN. Pneumonia vaccination - Administer Prevnar 13 and/or Pneumovax 23 as necessary. DVT prophylaxis - Lovenox 40MG SC daily. Depression - Citalopram 20MG daily. Bilateral ischial ulcers - Clindamycin 600MG IV Q8H thru 08/02/2017, Levaquin 500MG daily thru 08/03/2017, wound care with wound nurse. Bactroban topical daily. Bernard 1 packet BID. Neuropathic pain - Gabapentin 300MG BID. Skin irritation - Calmoseptine BID. Diabetes Mellitus II - Metformin 500MG BID. Hypertension - Metoprolol 50MG QAM, 100MG QHS. Tinea Corporis - Nystatin powder BID. Muscle spasm - Tizanidine 4MG Q6H PRN.
--- NOTE | 2017-07-26 21:06 | HP.PCM_ITS ---
Problem List (1) Low back pain Status: Chronic (2) Decubitus ulcer of left ischium, stage 4 Status: Acute (3) Right ischial pressure sore, stage 3 Status: Acute (4) Diabetic neuropathy Status: Acute (5) Anemia Status: Chronic (6) Panniculitis Status: Chronic (7) Diabetes mellitus Status: Chronic (8) Debility Status: Chronic (9) Incontinence of urine Status: Chronic (10) Thrombocytopenia Status: Chronic (11) Hyperlipidemia Status: Chronic (12) Morbid obesity Status: Chronic (13) Osteoarthritis Status: Chronic (14) Depression Status: Chronic Qualifiers: (15) Hypertension Status: Chronic Qualifiers: History of Present Illness Date of Admission: 07/26/17 Chief Complaint: Here for rehabilitation, strengthening, wound care, prior to discharge home alone. The patient is a 62 year old Female with below past medical history presented to [facility] 07/21/2017 with back pain. Chronic back pain on MS Filemon. Hemoglobin 11.0, Hematocrit 34.6, Platelets 140,000. Glucose 129, BUN 21. X-ray of LS spine showed chronic degenerative changes. Dilaudid, Zofran given, unable to walk, unable to care for self. 07/22/2017 Admit to Hospital. MS Filemon, Voltaren, Medrol dose pack for low back pain. 07/23/2017 Bilateral buttock pressure ulcer. 07/25/2017 Dr. Valle consulted for pressure ulcers. 07/23/2017 CT pelvis bilateral gluteal edema left worse than right, ventral hernia. 07/25/2017 Dr. Valle debrided bilateral ischial pressure ulcers, wound vac applied. 07/25/2017 EKG sinus rhythm 1st degree AV block, otherwise normal. 07/25/2017 Wound care for bilateral ischial ulcers. Guo catheter for urinary incontinence, to prevent wound contamination. Wound cultures grew gram negative rods. MSSA, MRSA negative. Clindamycin, Levaquin x 7 days to finish treatment. 07/26/2017 Admit to TCU for rehabilitation, strengthening, wound care, prior to discharge alone. Past Medical History Past Medical History (Chronic Problems): Chronic Problems Debility (Chronic) Low back pain (Chronic) Anemia (Chronic) Panniculitis (Chronic) Diabetes mellitus (Chronic) Right ischial pressure sore, stage 2 (Chronic) may be higher stage after excision Pressure sore of left ischium, unstageable (Chronic) anticipate Stage IV after excision Incontinence of urine (Chronic) Thrombocytopenia (Chronic) Normochromic normocytic anemia (Chronic) Acute panniculitis (Chronic) Hyperlipidemia (Chronic) Umbilical hernia (Chronic) Morbid obesity (Chronic) Osteoarthritis (Chronic) Depression (Chronic) Hypertension (Chronic) Type 2 diabetes mellitus (Chronic) Allergies amoxicillin Adverse Reaction (Verified 07/22/17 08:26) Other latex Adverse Reaction (Verified 07/22/17 08:26) Other Home Medications: Ambulatory Orders Medication Instructions Recorded Citalopram [Celexa] 20 mg PO DAILY 07/10/16 Metoprolol Tartrate [Lopressor 50 mg PO BREAKFAST 07/10/16 (beta tristen)] Metoprolol Tartrate [Lopressor 100 mg PO QHS 07/10/16 (beta tristen)] Gabapentin [Neurontin] 300 mg PO BID 07/22/17 Acetaminophen [Tylenol Tablet] 650 mg PO Q6H PRN PRN tablet 07/26/17 Clindamycin [Cleocin IVPB] 600 mg IV Q8 07/26/17 Diclofenac [Voltaren] 50 mg PO TID PRN tablet 07/26/17 Menthol/Lanolin/Calamine/Znox 1 applic TOPICAL BID 07/26/17 [Calmoseptine Ointment] Metformin HCl [Glucophage] 500 mg PO BIDCM 07/26/17 Morphine Sulfate [Ms Contin] 60 mg PO BID #6 tablet.er 07/26/17 Mupirocin [Bactroban] 1 applic TOPICAL .QDAILY 07/26/17 Nutritional Supplement [Bernard - 1 packet PO BIDCM 07/26/17 ORANGE FLAVOR] Nystatin Powder [Mycostatin Powder] 1 applic TOPICAL BID 07/26/17 Tizanidine HCl [Zanaflex] 4 mg PO Q6H PRN tablet 07/26/17 levoFLOXacin tablet [Levaquin 500 mg PO DAILY@0600 07/26/17 tablet] Surgical History: cholecystectomy, - - Bilateral ischial wound debridement. Psychiatric History: Depression CREDIT INTERN History: No pertinent CREDIT INTERN history Lives: Alone Smoking Status: Never smoker Tobacco Use: Non-smoker Alcohol: None Drugs: None - *Family History Paternal History Items: Diabetes Maternal History Items: No pertinent history Review of Systems Constitutional: Denies: Chills, Fever, Weight Change HEENT: Denies: Head Aches, Sinus Congestion, Sinus Drainage Cardiovascular: Denies: Chest Pain, Palpitations Respiratory: Denies: Cough, Shortness of breath at rest, Sputum production Gastrointestinal: Denies: Abdominal Pain, Nausea, Vomiting Genitourinary: Denies: Dysuria Musculoskeletal: Denies: Joint Pain, Joint Tenderness Skin: Reports: Wounds - Bilateral ischial pressure ulcers.. Denies: Rash Neurological: Denies: Numbness, Tingling, Focal weakness Psychiatric: Denies: Anxiety, Depression, Homicidal Ideations, Suicidal Ideations Hematologic/ Lymphatic: Denies: Easy Bruising, Easy Bleeding VTE Information - Inpt Only VTE Present on Admission: No VTE Mechan Device Prophylaxis: Knee High VALDO Hose VTE Pharm Prophylaxis ordered?: Yes Patient Problems: Active and Suspected Problems Decubitus ulcer of left ischium, stage 4 (Acute) Right ischial pressure sore, stage 3 (Acute) Diabetic neuropathy (Acute) - Physical Exam General: Alert, Oriented x3, Cooperative HEENT: Atraumatic, PERRLA, EOMI, Normocephalic Neck: Supple, No JVD, Negative Carotid Bruits Lungs: Clear to auscultation, Normal air movement Cardiovascular: Regular rate, No murmurs Abdomen: Bowel Sounds Present, Soft, Non Tender, - - Indwelling guo catheter. Extremities: No edema, Capillary Refill Less than 3 Seconds Skin: No rashes, Ulcer/ Wound - Stage 4 left ischial pressure ulcer, Stage 3 right ischial pressure ulcer. Wound vacs applied. Musculoskeletal: No Tenderness to Palpation of Joints or Extremities Neurological: Cranial nerves II-XII grossly intact Psych/Mental Status: Normal Affect, Appropriate Vital Signs Temp Pulse Resp BP Pulse Ox 98.2 F 66 18 134/67 H 97 07/26/17 17:27 07/26/17 17:27 07/26/17 17:27 07/26/17 17:27 07/26/17 17:27 Oxygen Delivery Method Room Air Weight: 124.4 kg Body Mass Index (BMI) 50.1 Finger Stick Blood Glucose 145 Intake and Output for Last 24 Hours 07/24/17 07/25/17 07/26/17 23:59 23:59 23:59 Intake Total 240 / 240 Balance 240 / 240 POC Glucose 07/26/17 17:21 POC Glucose 265 H Assessment/Plan Active and Suspected Problems Decubitus ulcer of left ischium, stage 4 (Acute) Right ischial pressure sore, stage 3 (Acute) Diabetic neuropathy (Acute) 62 year old female with below past medical history hospitalized for intractable low back pain, complicated by bilateral ischial pressure ulcers requiring debridement per Dr. Valle, with wound vac application, admitted to TCU for rehabilitation, strengthening, wound care, prior to discharge home alone. * Debility - PT/OT. * Pain - MS Contin 60MG BID, Tylenol 1000MG Q8H PRN mild pain, Diclofenac 50MG TID PRN moderate pain. * Bowel - Miralax 17GM daily, Senna/colace 2 tablets BID, Dulcolax 10MG ME daily PRN. * Pneumonia vaccination - Administer Prevnar 13 and/or Pneumovax 23 as necessary. * DVT prophylaxis - Lovenox 40MG SC daily. * Depression - Citalopram 20MG daily. * Bilateral ischial ulcers - Clindamycin 600MG IV Q8H thru 08/02/2017, Levaquin 500MG daily thru 08/03/2017, wound care with wound nurse. Bactroban topical daily. Bernard 1 packet BID. * Neuropathic pain - Gabapentin 300MG BID. * Skin irritation - Calmoseptine BID. * Diabetes Mellitus II - Metformin 500MG BID. * Hypertension - Metoprolol 50MG QAM, 100MG QHS. * Tinea Corporis - Nystatin powder BID. * Muscle spasm - Tizanidine 4MG Q6H PRN.
[2017-07-26] MEDS: Clindamycin 600 MG/50 ML BAG 100 MG IV (21:45)
[2017-07-26 21:56] VITALS: BP 97/40; PULSE 70
[2017-07-26] MEDS: Nystatin Powder 15gm Bottle 1 APPLIC TOPICAL (21:57)
[2017-07-26] MEDS: Menthol/Lanolin/Calamine/Znox 113 GM Tube 1 APPLIC TOPICAL (21:58)
[2017-07-26 22:55] LABS: Bedside Glucose 268 mg/dL (70-110)
[2017-07-27] MEDS: Mupirocin Ointment 22gm Tube 1 APPLIC TOPICAL (06:11)
[2017-07-27] MEDS: levoFLOXacin 500 MG Tablet PO (06:11)
[2017-07-27] MEDS: Citalopram 20 MG Tablet PO (06:11)
[2017-07-27] MEDS: Menthol/Lanolin/Calamine/Znox 113 GM Tube 1 APPLIC TOPICAL ×2 (06:11→21:30)
[2017-07-27] MEDS: Enoxaparin 40 MG/0.4 ML Syringe SC (06:13)
[2017-07-27] MEDS: Clindamycin 600 MG/50 ML BAG 100 MG IV ×3 (06:13→21:31)
[2017-07-27] MEDS: Polyethylene Glycol 3350 17 GM PACKET PO (06:16)
[2017-07-27] MEDS: Nystatin Powder 15gm Bottle 1 APPLIC TOPICAL ×2 (06:16→21:30)
[2017-07-27] MEDS: Senna/Docusate Sodium 1 Tablet 2 TABLET PO ×2 (06:17→17:20)
[2017-07-27 06:26] VITALS: BP 111/66; PULSE 73; RESP 15; O2SAT 95
[2017-07-27 06:31] LABS: Bedside Glucose 186 mg/dL (70-110)
[2017-07-27 07:55] LABS: Absolute Lymphocyte Count 1.68 X10^3/ul (0.83-4.51); Absolute Neutrophil Count 6.4 X10^3/uL (2.0-7.7); Basophil# 0.02 X10^3/uL; Basophil% 0.2 % (0-1); Eosinophil# 0.04 X10^3/uL; Eosinophils% 0.4 % (0-5); Hematocrit 32.5 % (37-47); Hemoglobin 10.4 g/dl (12.0-15.0); Lymphocyte # 1.68 X10^3/ul (4.0); Lymphocyte % 18.4 % (19-41); Mean Corpuscular Hgb 29.6 pg (27.0-32.0); Mean Corpuscular Volume 92.6 fL (81-99); Mean Platelet Vol. 10.7 fl (6.2-12.0); Monocyte# 0.92 X10^3/uL; Monocyte% 10.1 % (0-10); Neutrophil # 6.43 X10^3/uL (2.7-7.7); Neutrophil % 70.5 % (47-70); Platelet Count 124 K/mm3 (150-450); RBC Distribution Width CV 13.6 % (11.6-14.6); Red Blood Count 3.51 M/mm3 (4.2-5.4); White Blood Count 9.1 K/mm3 (4.4-11.0)
[2017-07-27 07:56] LABS: POSITIVE COUNT NO; POSITIVE DIFFERENTIAL NO; POSITIVE MORPHOLOGY NO
[2017-07-27 08:08] LABS: Anion Gap 6 (5-15); BUN 35 mg/dL (7-18); BUN/Creat Ratio 37.8 RATIO (10-20); Calcium,Total 8.9 mg/dL (8.5-10.1); Chloride 100 mmol/L (98-107); Creatinine, Serum 0.93 mg/dL (0.55-1.02); EST Glomerular Filtration Rate 66 mL/min (>60); Est Glom Filt Rate - Afr Amer 79 mL/min (>60); Estimated Creatinine Clearance 50.88 ml/min; Glucose 173 mg/dL (74-106); Potassium 4.2 mmol/L (3.5-5.1); Sodium Level 135 mmol/L (136-145)
[2017-07-27] MEDS: Gabapentin 300 MG Capsule PO ×2 (08:56→17:20)
[2017-07-27 08:58] VITALS: PULSE 88
[2017-07-27] MEDS: Metoprolol Tartrate 50 MG Tablet PO (08:58)
[2017-07-27] MEDS: Tuberculin,Purif.prot.deriv. 50 TU/ML Vial 5 ML ID (11:13)
[2017-07-27 11:31] LABS: Bedside Glucose 209 mg/dL (70-110)
[2017-07-27] MEDS: tiZANidine HCl 2 MG Tablet 4 MG PO (13:36)
--- NOTE | 2017-07-27 15:09 | PCM.PN.BLA ---
Progress Note The patient's operative culture from 07/25/17 showed E. coli that is resistant to Levaquin. So will stop that and start Bactrim DS, one tab twice a day, for 6 weeks. There is also a Gram positive organism present. So will continue the Cleocin.
[2017-07-27 15:50] VITALS: BP 141/96; PULSE 88; RESP 18; TEMP 36.7; O2SAT 96
[2017-07-27 16:55] LABS: Bedside Glucose 313 mg/dL (70-110)
[2017-07-27] MEDS: Smz/Tmp Ds Tablet 1 TABLET PO (17:18)
[2017-07-27 21:11] LABS: Bedside Glucose 498 mg/dL (70-110)
--- NOTE | 2017-07-27 21:21 | NURSING ---
Dr Bingham notified of blood sugar of 498 this evening. N.O. for 1x dose 10 units Novolog and recheck in 2 hours.
[2017-07-27 21:39] VITALS: BP 119/62; PULSE 94
[2017-07-27] MEDS: Metoprolol Tartrate 100 MG Tablet PO (21:39)
[2017-07-27 23:06] LABS: Bedside Glucose 270 mg/dL (70-110)
[2017-07-28 01:41] LABS: Bedside Glucose 154 mg/dL (70-110)
[2017-07-28] MEDS: Citalopram 20 MG Tablet PO (06:13)
[2017-07-28] MEDS: levoFLOXacin 500 MG Tablet PO (06:13)
[2017-07-28] MEDS: Enoxaparin 40 MG/0.4 ML Syringe SC (06:13)
[2017-07-28] MEDS: Mupirocin Ointment 22gm Tube 1 APPLIC TOPICAL (06:13)
[2017-07-28] MEDS: Clindamycin 600 MG/50 ML BAG 100 MG IV ×3 (06:13→21:22)
[2017-07-28] MEDS: Menthol/Lanolin/Calamine/Znox 113 GM Tube 1 APPLIC TOPICAL ×2 (06:13→21:16)
[2017-07-28] MEDS: Nystatin Powder 15gm Bottle 1 APPLIC TOPICAL ×2 (06:14→21:18)
[2017-07-28] MEDS: Polyethylene Glycol 3350 17 GM PACKET PO (06:14)
[2017-07-28] MEDS: Senna/Docusate Sodium 1 Tablet 2 TABLET PO ×2 (06:14→16:27)
[2017-07-28 06:16] LABS: Bedside Glucose 143 mg/dL (70-110)
[2017-07-28] MEDS: Smz/Tmp Ds Tablet 1 TABLET PO ×2 (08:55→16:27)
[2017-07-28 08:56] VITALS: PULSE 60
[2017-07-28] MEDS: Metoprolol Tartrate 50 MG Tablet PO (08:56)
[2017-07-28] MEDS: Gabapentin 300 MG Capsule PO ×2 (08:56→16:27)
[2017-07-28 10:00] VITALS: PULSE 60
[2017-07-28 11:16] LABS: Bedside Glucose 239 mg/dL (70-110)
--- NOTE | 2017-07-28 12:14 | NURSING ---
prune juice given at this time for constipation per patient request
[2017-07-28] MEDS: tiZANidine HCl 2 MG Tablet 4 MG PO ×2 (13:34→21:14)
[2017-07-28] MEDS: Bisacodyl 10 MG Suppository RECTAL (13:34)
--- NOTE | 2017-07-28 13:44 | NURSING ---
no luck on bm from drinking prune juice so pt given dulcolax rs with no hard noted to rectum. pt asking for muscle relaxer
[2017-07-28 16:00] VITALS: BP 108/58; PULSE 63; RESP 18; TEMP 35.8; O2SAT 97
[2017-07-28 17:20] LABS: Bedside Glucose 291 mg/dL (70-110)
--- NOTE | 2017-07-28 20:46 | NURSING ---
Wound vac draping coming off of wound due to pt having BM with sponge exposed. Wound vac removed at this time, wound cleansed with NS and new wound vac applied.
[2017-07-28 21:01] LABS: Bedside Glucose 306 mg/dL (70-110)
[2017-07-28 21:22] VITALS: BP 123/53; PULSE 70
[2017-07-28] MEDS: Metoprolol Tartrate 100 MG Tablet PO (21:22)
[2017-07-29] MEDS: Nystatin Powder 15gm Bottle 1 APPLIC TOPICAL ×2 (05:18→21:54)
[2017-07-29] MEDS: Menthol/Lanolin/Calamine/Znox 113 GM Tube 1 APPLIC TOPICAL ×2 (05:19→21:39)
[2017-07-29] MEDS: Mupirocin Ointment 22gm Tube 1 APPLIC TOPICAL (05:19)
[2017-07-29] MEDS: Citalopram 20 MG Tablet PO (05:49)
[2017-07-29] MEDS: Enoxaparin 40 MG/0.4 ML Syringe SC (05:49)
[2017-07-29] MEDS: Polyethylene Glycol 3350 17 GM PACKET PO (05:49)
[2017-07-29] MEDS: Senna/Docusate Sodium 1 Tablet 2 TABLET PO ×2 (05:50→21:37)
[2017-07-29] MEDS: 0.9% NaCl Peripheral Flush Adult/Peds IV ×3 (05:58→21:37)
[2017-07-29] MEDS: 0.9% NaCl IVPB Med Flush (250 mL) 15 ML IV (05:58)
[2017-07-29] MEDS: Clindamycin 600 MG/50 ML BAG 100 MG IV ×3 (05:58→21:36)
[2017-07-29 06:11] LABS: Bedside Glucose 265 mg/dL (70-110)
[2017-07-29 08:03] VITALS: PULSE 68
[2017-07-29] MEDS: Smz/Tmp Ds Tablet 1 TABLET PO ×2 (08:03→21:39)
[2017-07-29] MEDS: Gabapentin 300 MG Capsule PO ×2 (08:03→21:38)
[2017-07-29] MEDS: Metoprolol Tartrate 50 MG Tablet PO (08:03)
--- NOTE | 2017-07-29 08:17 | NURSING ---
pt c/o nausea this am, new order for zofran entered.
[2017-07-29] MEDS: Ondansetron ODT 4 MG Tablet 8 MG PO ×2 (08:27→23:03)
--- NOTE | 2017-07-29 08:56 | NURSING ---
Wound VAC dressing was changed by nursing staff earlier this am d/t stool contamination. dressing is D&I with good seal noted at 150mmHg low continuous suction. dressing to be changed again on 07/31/17.
--- NOTE | 2017-07-29 10:55 | NURSING ---
pt remains in isolation, all treatment done in pt room.
[2017-07-29 11:21] LABS: Bedside Glucose 279 mg/dL (70-110)
--- NOTE | 2017-07-29 12:36 | PHA.CONS_ITS ---
<DianaMontana galicia D - Last Filed: 07/29/17 12:18> Progress Note - Pharmacy Subjective: TCU Admission Objective: Allergies amoxicillin Adverse Reaction (Verified 07/22/17 08:26) Other latex Adverse Reaction (Verified 07/22/17 08:26) Other Home Medications Medication Instructions Recorded Citalopram [Celexa] 20 mg PO DAILY 07/10/16 Metoprolol Tartrate [Lopressor 50 mg PO BREAKFAST 07/10/16 (beta agatha)] Metoprolol Tartrate [Lopressor 100 mg PO QHS 07/10/16 (beta agatha)] Gabapentin [Neurontin] 300 mg PO BID 07/22/17 Acetaminophen [Tylenol Tablet] 650 mg PO Q6H PRN PRN tablet 07/26/17 Clindamycin [Cleocin IVPB] 600 mg IV Q8 07/26/17 Diclofenac [Voltaren] 50 mg PO TID PRN tablet 07/26/17 Menthol/Lanolin/Calamine/Znox 1 applic TOPICAL BID 07/26/17 [Calmoseptine Ointment] Metformin HCl [Glucophage] 500 mg PO BIDCM 07/26/17 Morphine Sulfate [Ms Contin] 60 mg PO BID #6 tablet.er 07/26/17 Mupirocin [Bactroban] 1 applic TOPICAL .QDAILY 07/26/17 Nutritional Supplement [Bernard - 1 packet PO BIDCM 07/26/17 ORANGE FLAVOR] Nystatin Powder [Mycostatin Powder] 1 applic TOPICAL BID 07/26/17 Tizanidine HCl [Zanaflex] 4 mg PO Q6H PRN tablet 07/26/17 levoFLOXacin tablet [Levaquin 500 mg PO DAILY@0600 07/26/17 tablet] Current Medications Generic Name Dose Route Start Last Admin Trade Name Freq PRN Reason Stop Dose Admin Acetaminophen 1,000 mg 07/26/17 21:20 Tylenol PO Q8H PRN PRN MILD PAIN (1-3/10) Bisacodyl 10 mg 07/26/17 17:18 07/28/17 13:34 Dulcolax RECTAL 10 mg DAILY PRN Administration CONSTIPATION Calamine/Phenol 1 applic 07/26/17 22:00 07/29/17 05:19 Calmoseptine Ointment TOPICAL 1 applicatio BID@0600,2200 [facility] Administration Protocol Citalopram Hydrobromide 20 mg 07/27/17 06:00 07/29/17 05:49 Celexa PO 20 mg DAILY MACKENZIE Administration Dextrose 0 gm 07/27/17 21:18 D50w Syringe IV X1 PRN Hypoglycemia Protocol Diclofenac Sodium 50 mg 07/26/17 17:08 Voltaren PO TID PRN PRN PAIN Enoxaparin Sodium 40 mg 07/27/17 06:00 07/29/17 05:49 Lovenox SC 40 mg DAILY@0600 MACKENZIE Administration Gabapentin 300 mg 07/26/17 18:00 07/29/17 08:03 Neurontin PO 300 mg BIDCM MACKENZIE Administration Glucagon 1 mg 07/27/17 21:18 IM .X1 PRN Hypoglycemia Clindamycin Phosphate 600 mg in 50 mls @ 100 mls/hr 07/26/17 22:00 07/29/17 05:58 Cleocin IV 08/02/17 22:31 100 mls/hr Q8 MACKENZIE Administration Sodium Chloride 250 mls @ 15 mls/hr 07/29/17 00:43 07/29/17 05:58 IV 15 mls/hr .[id number] PRN Administration SALINE FLUSH Metformin HCl 500 mg 07/27/17 08:00 07/29/17 08:03 Glucophage PO 500 mg BIDCM MACKENZIE Administration Metoprolol Tartrate 50 mg 07/27/17 08:00 07/29/17 08:03 Lopressor (Beta Agatha) PO 50 mg BREAKFAST MACKENZIE Administration Metoprolol Tartrate 100 mg 07/26/17 22:00 07/28/17 21:22 Lopressor (Beta Agatha) PO 100 mg QHS MACKENZIE Administration Morphine Sulfate 60 mg 07/26/17 18:30 07/29/17 05:49 Ms Contin PO 60 mg BID MACKENZIE Administration Mupirocin 1 applic 07/27/17 06:00 07/29/17 05:19 Bactroban TOPICAL 1 applicatio DAILY MACKENZIE Administration Protocol Nutritional Formula 1 packet 07/27/17 08:00 07/29/17 08:04 Bernard - [place] Flavor PO 1 packet BIDCM MACKENZIE Administration Nystatin 1 applic 07/26/17 22:00 07/29/17 05:18 Mycostatin Powder TOPICAL 1 applicatio BID@0600,2200 MACKENZIE Administration Protocol Ondansetron HCl 8 mg 07/29/17 08:16 07/29/17 08:27 Zofran Odt PO 8 mg Q8H PRN PRN Administration NAUSEA Polyethylene Glycol 17 gm 07/27/17 06:00 07/29/17 05:49 Miralax PO 17 gm DAILY MACKENZIE Administration Senna/Docusate Sodium 2 tablet 07/27/17 06:00 07/29/17 05:50 Senokot-S, Kiana-Colace PO 2 tablet BID MACKENZIE Administration Sodium Chloride 5 - 30 ml 07/29/17 00:43 07/29/17 05:58 IV 10 ml UD PRN Administration SALINE FLUSH Tizanidine HCl 4 mg 07/26/17 17:08 07/28/17 21:14 Zanaflex PO 4 mg Q6H PRN PRN Administration PAIN Trimethoprim/Sulfamethoxazole 1 tablet 07/27/17 17:00 07/29/17 08:03 Bactrim Ds PO 09/07/17 08:01 1 tablet BIDCM MACKENZIE Administration Tuberculin PPD 5 tu 08/03/17 10:00 Tubersol, Aplisol, Ppd ID 08/03/17 10:01 X1 ONE Problem List Low back pain (Chronic) Decubitus ulcer of left ischium, stage 4 (Acute) Right ischial pressure sore, stage 3 (Acute) Diabetic neuropathy (Acute) Anemia (Chronic) Panniculitis (Chronic) Diabetes mellitus (Chronic) Vital Signs Temp Pulse Resp BP Pulse Ox 96.5 F L 68 18 123/53 H 97 07/28/17 16:00 07/29/17 08:03 07/28/17 16:00 07/28/17 21:22 07/28/17 16:00 Oxygen Delivery Method Room Air Weight: 124.4 kg Body Mass Index (BMI) 50.1 Finger Stick Blood Glucose 145 Sodium 135 mmol/L (136-145) L 07/27/17 07:35 Potassium 4.2 mmol/L (3.5-5.1) 07/27/17 07:35 Chloride 100 mmol/L (98-107) 07/27/17 07:35 Carbon Dioxide 29.0 mmol/L (21.0-32.0) 07/27/17 07:35 Anion Gap 6 (5-15) 07/27/17 07:35 BUN 35 mg/dL (7-18) H 07/27/17 07:35 Creatinine 0.93 mg/dL (0.55-1.02) 07/27/17 07:35 Est GFR (MDRD) Af Amer 79 mL/min (>60) 07/27/17 07:35 Est GFR (MDRD) Non-Af 66 mL/min (>60) 07/27/17 07:35 BUN/Creatinine Ratio 37.8 RATIO (10-20) H 07/27/17 07:35 Glucose 173 mg/dL (74-106) H 07/27/17 07:35 Assessment/Plan: * 1) Pain APAP for mild pain. morphine SR twice daily, tizanidine prn, diclofenac prn, gabapentin twice daily. Continue to monitor prn medication use, daily pain scores. * Tizanidine and diclofenac instructions both for pain. Please clarify both and update as they overlap with each other and APAP (mild pain). Thank you. 2) DM2 Metformin twice daily. Avg BGT > 200 mg/dL, BUN/SCr at baseline. Continue to monitor BGT, renal function. 3) HTN Metoprolol twice daily. BP/HR within goal ranges. Continue to monitor BP/HR. 4) ID Clindamycin until 08/02, smx/tmp until 09/07. WBC wnl, afebrile. Continue to monitor s/s infection. 5) DVT PPx Enoxaparin daily. Continue to monitor s/s bleeding/clot. 6) Derm Calmoseptine, nystatin, mupirocin. Continue to monitor clinically. 7) Nutrition Bernard. Continue to monitor clinically. Psychotropic Medications: 8) Depression Citalopram daily. Continue to monitor s/s depression. Unnecessary Medications: None Bowel Regimen: 9) Senna/s, PEG, prn bisacodyl. Continue to monitor prn medication use, for constipation/diarrhea. Date of Note:: 07/29/17 - Provider Comments Provider responsibility: Provider responsible to enter orders to implement recommendations <Vel Bingham Chi - Last Filed: 07/29/17 18:19> Progress Note - Pharmacy Subjective: [] Objective: Allergies amoxicillin Adverse Reaction (Verified 07/22/17 08:26) Other latex Adverse Reaction (Verified 07/22/17 08:26) Other Home Medications Medication Instructions Recorded Citalopram [Celexa] 20 mg PO DAILY 07/10/16 Metoprolol Tartrate [Lopressor 50 mg PO BREAKFAST 07/10/16 (beta agatha)] Metoprolol Tartrate [Lopressor 100 mg PO QHS 07/10/16 (beta agatha)] Gabapentin [Neurontin] 300 mg PO BID 07/22/17 Acetaminophen [Tylenol Tablet] 650 mg PO Q6H PRN PRN tablet 07/26/17 Clindamycin [Cleocin IVPB] 600 mg IV Q8 07/26/17 Diclofenac [Voltaren] 50 mg PO TID PRN tablet 07/26/17 Menthol/Lanolin/Calamine/Znox 1 applic TOPICAL BID 07/26/17 [Calmoseptine Ointment] Metformin HCl [Glucophage] 500 mg PO BIDCM 07/26/17 Morphine Sulfate [Ms Contin] 60 mg PO BID #6 tablet.er 07/26/17 Mupirocin [Bactroban] 1 applic TOPICAL .QDAILY 07/26/17 Nutritional Supplement [Bernard - 1 packet PO BIDCM 07/26/17 ORANGE FLAVOR] Nystatin Powder [Mycostatin Powder] 1 applic TOPICAL BID 07/26/17 Tizanidine HCl [Zanaflex] 4 mg PO Q6H PRN tablet 07/26/17 levoFLOXacin tablet [Levaquin 500 mg PO DAILY@0600 07/26/17 tablet] Current Medications Generic Name Dose Route Start Last Admin Trade Name Freq PRN Reason Stop Dose Admin Acetaminophen 1,000 mg 07/26/17 21:20 Tylenol PO Q8H PRN PRN MILD PAIN (1-3/10) Al Hydroxide/Mg Hydroxide 30 ml 07/29/17 18:08 Mylanta Ii PO Q6H PRN PRN INDIGESTION Bisacodyl 10 mg 07/26/17 17:18 07/28/17 13:34 Dulcolax RECTAL 10 mg DAILY PRN Administration CONSTIPATION Calamine/Phenol 1 applic 07/26/17 22:00 07/29/17 05:19 Calmoseptine Ointment TOPICAL 1 applicatio BID@0600,2200 MACKENZIE Administration Protocol Citalopram Hydrobromide 20 mg 07/27/17 06:00 07/29/17 05:49 Celexa PO 20 mg DAILY MACKENZIE Administration Dextrose 0 gm 07/27/17 21:18 D50w Syringe IV X1 PRN Hypoglycemia Protocol Diclofenac Sodium 50 mg 07/26/17 17:08 Voltaren PO TID PRN PRN PAIN Enoxaparin Sodium 40 mg 07/27/17 06:00 07/29/17 05:49 Lovenox SC 40 mg DAILY@0600 MACKENZIE Administration Gabapentin 300 mg 07/26/17 18:00 07/29/17 08:03 Neurontin PO 300 mg BIDCM MACKENZIE Administration Glucagon 1 mg 07/27/17 21:18 IM .X1 PRN Hypoglycemia Clindamycin Phosphate 600 mg in 50 mls @ 100 mls/hr 07/26/17 22:00 07/29/17 15:37 Cleocin IV 08/02/17 22:31 100 mls/hr Q8 MACKENZIE Administration Sodium Chloride 250 mls @ 15 mls/hr 07/29/17 00:43 07/29/17 05:58 IV 15 mls/hr .[id number] PRN Administration SALINE FLUSH Metformin HCl 500 mg 07/27/17 08:00 07/29/17 08:03 Glucophage PO 500 mg BIDCM MACKENZIE Administration Metoprolol Tartrate 50 mg 07/27/17 08:00 07/29/17 08:03 Lopressor (Beta Agatha) PO 50 mg BREAKFAST MACKENZIE Administration Metoprolol Tartrate 100 mg 07/26/17 22:00 07/28/17 21:22 Lopressor (Beta Agatha) PO 100 mg QHS MACKENZIE Administration Morphine Sulfate 60 mg 07/26/17 18:30 07/29/17 05:49 Ms Contin PO 60 mg BID MACKENZIE Administration Mupirocin 1 applic 07/27/17 06:00 07/29/17 05:19 Bactroban TOPICAL 1 applicatio DAILY MACKENZIE Administration Protocol Nutritional Formula 1 packet 07/27/17 08:00 07/29/17 17:39 Bernard - [place] Flavor PO 1 packet BIDCM MACKENZIE Administration Nystatin 1 applic 07/26/17 22:00 07/29/17 05:18 Mycostatin Powder TOPICAL 1 applicatio BID@0600,2200 MACKENZIE Administration Protocol Ondansetron HCl 8 mg 07/29/17 08:16 07/29/17 08:27 Zofran Odt PO 8 mg Q8H PRN PRN Administration NAUSEA Polyethylene Glycol 17 gm 07/27/17 06:00 07/29/17 05:49 Miralax PO 17 gm DAILY MACKENZIE Administration Senna/Docusate Sodium 2 tablet 07/27/17 06:00 07/29/17 05:50 Senokot-S, Kiana-Colace PO 2 tablet BID MACKENZIE Administration Sodium Chloride 5 - 30 ml 07/29/17 00:43 07/29/17 13:30 IV 10 ml UD PRN Administration SALINE FLUSH Tizanidine HCl 4 mg 07/26/17 17:08 07/29/17 14:29 Zanaflex PO 4 mg Q6H PRN PRN Administration PAIN Trimethoprim/Sulfamethoxazole 1 tablet 07/27/17 17:00 07/29/17 08:03 Bactrim Ds PO 09/07/17 08:01 1 tablet BIDCM MACKENZIE Administration Tuberculin PPD 5 tu 08/03/17 10:00 Tubersol, Aplisol, Ppd ID 08/03/17 10:01 X1 ONE Problem List Low back pain (Chronic) Decubitus ulcer of left ischium, stage 4 (Acute) Right ischial pressure sore, stage 3 (Acute) Diabetic neuropathy (Acute) Anemia (Chronic) Panniculitis (Chronic) Diabetes mellitus (Chronic) Vital Signs Temp Pulse Resp BP Pulse Ox 97.2 F L 68 18 125/65 H 97 07/29/17 16:00 07/29/17 16:00 07/29/17 16:00 07/29/17 16:00 07/29/17 16:00 Oxygen Delivery Method Room Air Weight: 124.4 kg Body Mass Index (BMI) 50.1 Finger Stick Blood Glucose 145 Sodium 135 mmol/L (136-145) L 07/27/17 07:35 Potassium 4.2 mmol/L (3.5-5.1) 07/27/17 07:35 Chloride 100 mmol/L (98-107) 07/27/17 07:35 Carbon Dioxide 29.0 mmol/L (21.0-32.0) 07/27/17 07:35 Anion Gap 6 (5-15) 07/27/17 07:35 BUN 35 mg/dL (7-18) H 07/27/17 07:35 Creatinine 0.93 mg/dL (0.55-1.02) 07/27/17 07:35 Est GFR (MDRD) Af Amer 79 mL/min (>60) 07/27/17 07:35 Est GFR (MDRD) Non-Af 66 mL/min (>60) 07/27/17 07:35 BUN/Creatinine Ratio 37.8 RATIO (10-20) H 07/27/17 07:35 Glucose 173 mg/dL (74-106) H 07/27/17 07:35 Assessment/Plan: Psychotropic Medications: Unnecessary Medications: Bowel Regimen: - Provider Comments Provider responsibility: Provider responsible to enter orders to implement recommendations Provider Comments to Recommendations by Pharmacy: Agree
[2017-07-29] MEDS: tiZANidine HCl 2 MG Tablet 4 MG PO (14:29)
[2017-07-29 14:55] VITALS: RESP 18
--- NOTE | 2017-07-29 15:30 | NURSING ---
This nurse entered room to assess pt and noted when turning pt that wound vac drsg wet and not sealed well. wound vac not sounding, notified wound nurse. Wound vac changed, drsg to sutures changed, bactroban applied as ordered.
--- NOTE | 2017-07-29 15:36 | NURSING ---
wound photo: left buttock
[2017-07-29 16:00] VITALS: BP 125/65; PULSE 68; RESP 18; TEMP 36.2; O2SAT 97
[2017-07-29 16:56] LABS: Bedside Glucose 316 mg/dL (70-110)
--- NOTE | 2017-07-29 18:09 | NURSING ---
pt c/o indigestion, refusing 1800 meds at this time, refused supper too.
[2017-07-29] MEDS: Mag Hydrox/Al Hydrox/Simeth 30 ML UDC PO (18:21)
[2017-07-29 21:01] LABS: Bedside Glucose 325 mg/dL (70-110)
[2017-07-29 21:39] VITALS: BP 112/61; PULSE 68
[2017-07-29] MEDS: Metoprolol Tartrate 100 MG Tablet PO (21:39)
[2017-07-30] MEDS: 0.9% Normal Saline 1,000 ML 60 ML IV (02:28)
--- NOTE | 2017-07-30 02:28 | NURSING ---
Pt with 1000ml green emesis. Pt's second vomit this evening. Dr Bingham aware. N.O. Stat CBC, CMP, UA, Normal Saline 60ml/hr and CT of abd.
[2017-07-30] MEDS: 0.9% NaCl Peripheral Flush Adult/Peds IV (02:31)
[2017-07-30 02:44] LABS: Mucous, Urine 0 SEEN /hpf (<or=2+); Red Blood Cells-Urine 0 SEEN /hpf (0-5)
[2017-07-30 02:45] LABS: Color, Urine Yellow (Yellow); Glucose, Dipstick 1000 mg/dl (Normal); Ketone-Dipstick Negative (Negative); Leukocyte Esterase-Dipstick 25 /ul (Negative); Nitrite-Dipstick Negative (Negative); Occult Blood-Urine Negative /ul (Negative); Protein-Dipstick 15 mg/dl (Negative); Urine Bilirubin Dipstick Negative (Negative); Urine Clarity Sl. Cloudy (Clear); Urine Urobilinogen Normal (Normal)
[2017-07-30 02:58] LABS: Bacteria RARE /hpf (None Seen); Squamous Epithelial Cells - UA 5-10 SEEN /hpf (5-10); White Blood Cells 0-5 SEEN /hpf (0-5)
[2017-07-30 03:02] LABS: Absolute Lymphocyte Count 0.99 X10^3/ul (0.83-4.51); Absolute Neutrophil Count 8.7 X10^3/uL (2.0-7.7); Basophil# 0.01 X10^3/uL; Basophil% 0.1 % (0-1); Eosinophil# 0.03 X10^3/uL; Eosinophils% 0.3 % (0-5); Hematocrit 33.2 % (37-47); Hemoglobin 10.8 g/dl (12.0-15.0); Lymphocyte # 0.99 X10^3/ul (4.0); Lymphocyte % 9.3 % (19-41); Mean Corp Hgb Conc 32.5 g/gl (32-36); Mean Corpuscular Hgb 29.1 pg (27.0-32.0); Mean Corpuscular Volume 89.5 fL (81-99); Mean Platelet Vol. 10.6 fl (6.2-12.0); Monocyte% 8.4 % (0-10); Neutrophil # 8.69 X10^3/uL (2.7-7.7); Neutrophil % 81.5 % (47-70); Platelet Count 144 K/mm3 (150-450); RBC Distribution Width CV 14.1 % (11.6-14.6); RBC Distribution Width SD 46.3 fl (35.1-43.9); Red Blood Count 3.71 M/mm3 (4.2-5.4); White Blood Count 10.7 K/mm3 (4.4-11.0)
[2017-07-30 03:06] LABS: POSITIVE COUNT NO; POSITIVE DIFFERENTIAL NO; POSITIVE MORPHOLOGY NO
[2017-07-30 03:19] LABS: ALB/GLOB Ratio 0.4 RATIO (0.9-2.4); AST(SGOT) 11 U/L (15-37); Alanine Aminotransfer ALT/SGPT 17 U/L (13-56); Albumin, Serum 2.2 g/dL (3.2-5.0); Alkaline Phosphatase 122 U/L (45-117); Anion Gap 9 (5-15); BUN 33 mg/dL (7-18); BUN/Creat Ratio 32.4 RATIO (10-20); Calcium,Total 9.5 mg/dL (8.5-10.1); Chloride 96 mmol/L (98-107); Creatinine, Serum 1.02 mg/dL (0.55-1.02); EST Glomerular Filtration Rate 59 mL/min (>60); Est Glom Filt Rate - Afr Amer 71 mL/min (>60); Estimated Creatinine Clearance 46.39 ml/min; Glucose 295 mg/dL (74-106); Potassium 4.3 mmol/L (3.5-5.1); Protein, Total 7.2 g/dL (6.4-8.2); Sodium Level 135 mmol/L (136-145)
[2017-07-30] MEDS: Clindamycin 600 MG/50 ML BAG 100 MG IV (06:27)
[2017-07-30] MEDS: Menthol/Lanolin/Calamine/Znox 113 GM Tube 1 APPLIC TOPICAL (06:27)
[2017-07-30] MEDS: Nystatin Powder 15gm Bottle 1 APPLIC TOPICAL (06:28)
[2017-07-30] MEDS: Mupirocin Ointment 22gm Tube 1 APPLIC TOPICAL (06:31)
[2017-07-30 06:46] LABS: Bedside Glucose 281 mg/dL (70-110)
[2017-07-30 08:13] VITALS: BP 157/77; PULSE 72; RESP 28; TEMP 36.8; O2SAT 95
--- NOTE | 2017-07-30 08:14 | NURSING ---
dr Bingham notified of pt CT scan results. New order to send pt to ER, Report called to [place], Dr Bingham spoke with Dr Davison. Pt transported via bed to ER at this time. Vitals done and WNL's.
--- NOTE | 2017-07-30 08:16 | PCM.DC ---
- Discharge Diagnoses Current Active Problems: Current Active and Chronic Problems Low back pain (Chronic) Decubitus ulcer of left ischium, stage 4 (Acute) Right ischial pressure sore, stage 3 (Acute) Diabetic neuropathy (Acute) Anemia (Chronic) Panniculitis (Chronic) Diabetes mellitus (Chronic) Your food should be the consistency of: Regular Your liquids should be the consistency of: Regular/Thin Discharge Activity: Use Walker Weight Bearing Status: Weight bearing as tolerated Call your doctor if you observe: Fever of 101 or Higher, Inability to urinate, Inability to have a bowel movement, Shortness of breath, Chest pain, Uncontrolled pain Allergies/Adverse Reactions: Allergies amoxicillin Adverse Reaction (Verified 07/22/17 08:26) Other latex Adverse Reaction (Verified 07/22/17 08:26) Other Medications to take at Discharge Citalopram [Celexa] 20 mg PO DAILY 07/10/16 Metoprolol Tartrate [Lopressor (beta tristen)] 50 mg PO BREAKFAST 07/10/16 Metoprolol Tartrate [Lopressor (beta tristen)] 100 mg PO QHS 07/10/16 Gabapentin [Neurontin] 300 mg PO BID 07/22/17 Acetaminophen [Tylenol Tablet] 650 mg PO Q6H PRN PRN tablet 07/26/17 Clindamycin [Cleocin IVPB] 600 mg IV Q8 07/26/17 Diclofenac [Voltaren] 50 mg PO TID PRN tablet 07/26/17 Menthol/Lanolin/Calamine/Znox [Calmoseptine Ointment] 1 applic TOPICAL BID 07/26/17 Metformin HCl [Glucophage] 500 mg PO BIDCM 07/26/17 Morphine Sulfate [Ms Contin] 60 mg PO BID #6 tablet.er 07/26/17 Mupirocin [Bactroban] 1 applic TOPICAL .QDAILY 07/26/17 Nutritional Supplement [Bernard - ORANGE FLAVOR] 1 packet PO BIDCM 07/26/17 Nystatin Powder [Mycostatin Powder] 1 applic TOPICAL BID 07/26/17 Tizanidine HCl [Zanaflex] 4 mg PO Q6H PRN tablet 07/26/17 levoFLOXacin tablet [Levaquin tablet] 500 mg PO DAILY@0600 07/26/17 Primary Care Physician: Brittany Sorenson MD [Primary Care Provider] - Please follow up with your Primary Care Physician in: 1 week. Please Follow Up With: Dr Valle When: within 1 week Proposed Discharge Date: 07/30/17
--- NOTE | 2017-07-30 08:17 | PCM.DC.SUM ---
Discharge Date and Diagnosis - Problem List Patient Problems: Active and Suspected Problems Decubitus ulcer of left ischium, stage 4 (Acute) Right ischial pressure sore, stage 3 (Acute) Diabetic neuropathy (Acute) Date of Admission: 07/26/17 Date of Discharge: 07/30/17 - Primary Discharge Diagnosis Active and Suspected Problems Decubitus ulcer of left ischium, stage 4 (Acute) Right ischial pressure sore, stage 3 (Acute) Diabetic neuropathy (Acute) - Secondary Discharge Diagnosis Chronic Problems Debility (Chronic) Low back pain (Chronic) Anemia (Chronic) Panniculitis (Chronic) Diabetes mellitus (Chronic) Right ischial pressure sore, stage 2 (Chronic) may be higher stage after excision Pressure sore of left ischium, unstageable (Chronic) anticipate Stage IV after excision Incontinence of urine (Chronic) Thrombocytopenia (Chronic) Normochromic normocytic anemia (Chronic) Acute panniculitis (Chronic) Hyperlipidemia (Chronic) Umbilical hernia (Chronic) Morbid obesity (Chronic) Osteoarthritis (Chronic) Depression (Chronic) Hypertension (Chronic) Type 2 diabetes mellitus (Chronic) Hospital Course and Treatment Imaging Results: 07/26/17 17:15 Diet: Calorie Controlled Food consistency:: Regular Liquid Consistency:: Regular/Thin Is pt able to select menu?: Yes Diet Comments: carbohydrate-controlled, cardiac How many daily calories?: 1800 calorie Labs (Last 48 Hours) 07/28/17 07/28/17 07/28/17 11:13 17:15 20:56 WBC RBC Hgb Hct MCV MCH MCHC RDW RDW Differential Plt Count MPV Immature Gran % (Auto) Neut % (Auto) Lymph % (Auto) Kemper % (Auto) Eos % (Auto) Baso % (Auto) Absolute Neuts (auto) Absolute Lymphs (auto) Total Counted Sodium Potassium Chloride Carbon Dioxide Anion Gap BUN Creatinine Estim Creat Clear Calc Est GFR (MDRD) Af Amer Est GFR (MDRD) Non-Af BUN/Creatinine Ratio Glucose Calcium Total Bilirubin AST ALT Alkaline Phosphatase Total Protein Albumin Globulin Albumin/Globulin Ratio Urine Color Urine Clarity Urine pH Ur Specific Hinckley Urine Protein Urine Glucose (UA) Urine Ketones Urine Occult Blood Urine Nitrite Urine Bilirubin Urine Urobilinogen Ur Leukocyte Esterase Urine RBC Urine WBC Ur Squamous Epith Cells Urine Bacteria Urine Mucus POC Glucose 239 H 291 H 306 H 07/29/17 07/29/17 07/29/17 06:05 11:14 16:43 WBC RBC Hgb Hct MCV MCH MCHC RDW RDW Differential Plt Count MPV Immature Gran % (Auto) Neut % (Auto) Lymph % (Auto) Kemper % (Auto) Eos % (Auto) Baso % (Auto) Absolute Neuts (auto) Absolute Lymphs (auto) Total Counted Sodium Potassium Chloride Carbon Dioxide Anion Gap BUN Creatinine Estim Creat Clear Calc Est GFR (MDRD) Af Amer Est GFR (MDRD) Non-Af BUN/Creatinine Ratio Glucose Calcium Total Bilirubin AST ALT Alkaline Phosphatase Total Protein Albumin Globulin Albumin/Globulin Ratio Urine Color Urine Clarity Urine pH Ur Specific Hinckley Urine Protein Urine Glucose (UA) Urine Ketones Urine Occult Blood Urine Nitrite Urine Bilirubin Urine Urobilinogen Ur Leukocyte Esterase Urine RBC Urine WBC Ur Squamous Epith Cells Urine Bacteria Urine Mucus POC Glucose 265 H 279 H 316 H 07/29/17 07/30/17 07/30/17 20:55 02:37 02:55 WBC 10.7 RBC 3.71 L Hgb 10.8 L Hct 33.2 L MCV 89.5 MCH 29.1 MCHC 32.5 RDW 14.1 RDW Differential 46.3 H Plt Count 144 L MPV 10.6 Immature Gran % (Auto) 0.400 Neut % (Auto) 81.5 H Lymph % (Auto) 9.3 L Kemper % (Auto) 8.4 Eos % (Auto) 0.3 Baso % (Auto) 0.1 Absolute Neuts (auto) 8.7 H Absolute Lymphs (auto) 0.99 Total Counted Not Reportable Sodium Potassium Chloride Carbon Dioxide Anion Gap BUN Creatinine Estim Creat Clear Calc Est GFR (MDRD) Af Amer Est GFR (MDRD) Non-Af BUN/Creatinine Ratio Glucose Calcium Total Bilirubin AST ALT Alkaline Phosphatase Total Protein Albumin Globulin Albumin/Globulin Ratio Urine Color Yellow Urine Clarity Sl. Cloudy Urine pH 7.0 Ur Specific Hinckley 1.010 Urine Protein 15 H Urine Glucose (UA) 1000 H Urine Ketones Negative Urine Occult Blood Negative Urine Nitrite Negative Urine Bilirubin Negative Urine Urobilinogen Normal Ur Leukocyte Esterase 25 H Urine RBC 0 SEEN Urine WBC 0-5 SEEN Ur Squamous Epith Cells 5-10 SEEN Urine Bacteria RARE Urine Mucus 0 SEEN POC Glucose 325 H 07/30/17 07/30/17 02:55 06:32 WBC RBC Hgb Hct MCV MCH MCHC RDW RDW Differential Plt Count MPV Immature Gran % (Auto) Neut % (Auto) Lymph % (Auto) Kemper % (Auto) Eos % (Auto) Baso % (Auto) Absolute Neuts (auto) Absolute Lymphs (auto) Total Counted Sodium 135 L Potassium 4.3 Chloride 96 L Carbon Dioxide 30.0 Anion Gap 9 BUN 33 H Creatinine 1.02 Estim Creat Clear Calc 46.39 Est GFR (MDRD) Af Amer 71 Est GFR (MDRD) Non-Af 59 L BUN/Creatinine Ratio 32.4 H Glucose 295 H Calcium 9.5 Total Bilirubin 0.60 AST 11 L ALT 17 Alkaline Phosphatase 122 H Total Protein 7.2 Albumin 2.2 L Globulin 5.0 H Albumin/Globulin Ratio 0.4 L Urine Color Urine Clarity Urine pH Ur Specific Hinckley Urine Protein Urine Glucose (UA) Urine Ketones Urine Occult Blood Urine Nitrite Urine Bilirubin Urine Urobilinogen Ur Leukocyte Esterase Urine RBC Urine WBC Ur Squamous Epith Cells Urine Bacteria Urine Mucus POC Glucose 281 H Consultations 07/26/17 Consult: Onc/Wound/pediatric genetic counselor Routine Comment: Reason for Consult:: wound vac left buttock Operations: None, - - Excision and debridement of ischial pressure injuries Procedures: None Summary of Care Provided: The patient is a 62 year old Female with below past medical history hospitalized for intractable low back pain, complicated by bilateral ischial pressure ulcers requiring debridement per Dr. Valle, with wound vac application, admitted to TCU for rehabilitation, strengthening, wound care, prior to discharge home alone. [] 07/29/2017 Resident developed nausea, Zofran mildly helpful. 07/30/2017 Resident had large > 1000ML emesis, labs obtained, UA sent, CT a/p showed closed loop small bowel obstruction within umbilical hernia. Discharge to [facility] for evaluation, admission to hospital. Discharge Diet: - - NPO Discharge Activity: Use Walker Weight Bearing Status: Weight bearing as tolerated Call your doctor if you observe: Fever of 101 or Higher, Inability to urinate, Inability to have a bowel movement, Shortness of breath, Chest pain, Uncontrolled pain Home Medications: Medications to take at Discharge Citalopram [Celexa] 20 mg PO DAILY 07/10/16 Metoprolol Tartrate [Lopressor (beta tristen)] 50 mg PO BREAKFAST 07/10/16 Metoprolol Tartrate [Lopressor (beta tristen)] 100 mg PO QHS 07/10/16 Gabapentin [Neurontin] 300 mg PO BID 07/22/17 Acetaminophen [Tylenol Tablet] 650 mg PO Q6H PRN PRN tablet 07/26/17 Clindamycin [Cleocin IVPB] 600 mg IV Q8 07/26/17 Diclofenac [Voltaren] 50 mg PO TID PRN tablet 07/26/17 Menthol/Lanolin/Calamine/Znox [Calmoseptine Ointment] 1 applic TOPICAL BID 07/26/17 Metformin HCl [Glucophage] 500 mg PO BIDCM 07/26/17 Morphine Sulfate [Ms Contin] 60 mg PO BID #6 tablet.er 07/26/17 Mupirocin [Bactroban] 1 applic TOPICAL .QDAILY 07/26/17 Nutritional Supplement [Bernard - ORANGE FLAVOR] 1 packet PO BIDCM 07/26/17 Nystatin Powder [Mycostatin Powder] 1 applic TOPICAL BID 07/26/17 Tizanidine HCl [Zanaflex] 4 mg PO Q6H PRN tablet 07/26/17 levoFLOXacin tablet [Levaquin tablet] 500 mg PO DAILY@0600 07/26/17 Primary Care Physician: Brittany Sorenson MD [Primary Care Provider] - Please follow up with your Primary Care Physician in: 1 week. Please Follow Up With: Dr Valle When: within 1 week Disposition: Acute care Hospital Minutes spent on discharge:: 30 Patient Condition:: Guarded Medical Necessity - Tobacco Use Smoking Status: Never smoker Tobacco Use: Non-smoker Meaningful Use Info Meaningful Use Diagnoses (Choose all that apply): None applicable
--- NOTE | 2017-07-30 08:28 | NURSING ---
Passed patient in the [facility] heading down to the ED. wound VAC dressing intact. no leaks at this time. patient has been vomiting all evening and morning. CT showed bowel obstruction so patient was sent to the ED.
--- NOTE | 2017-08-08 13:24 | MDS.RN ---
Information for the mds was obtained from review of the clinical record, interview of resident, staff, and direct observation of resident's care.
== END 2017-07-30 08:20 | disposition short-term general hospital (02) | DRG 949 ==
PROVIDERS: Admitting Provider Family Medicine Geriatric Medicine; Family Provider Internal Medicine; PCP Internal Medicine; Visit Provider Family Medicine Geriatric Medicine
DX: Z48.817 Encounter for surgical aftercare following surgery on the skin and subcutaneous tissue (principal); L89.213 Pressure ulcer of right hip, stage 3; E11.622 Type 2 diabetes mellitus with other skin ulcer; E11.40 Type 2 diabetes mellitus with diabetic neuropathy, unspecified; L89.224 Pressure ulcer of left hip, stage 4; E66.01 Morbid (severe) obesity due to excess calories; E78.5 Hyperlipidemia, unspecified; M54.9 Dorsalgia, unspecified; B35.4 Tinea corporis; Z68.43 Body mass index [BMI] 50.0-59.9, adult; R32 Unspecified urinary incontinence; M19.90 Unspecified osteoarthritis, unspecified site; F32.9 Major depressive disorder, single episode, unspecified; I10 Essential (primary) hypertension; G89.29 Other chronic pain; Z71.3 Dietary counseling and surveillance; Z79.899 Other long term (current) drug therapy; Z79.84 Long term (current) use of oral hypoglycemic drugs; Z79.891 Long term (current) use of opiate analgesic
CPT/HCPCS: 36415; 80048; 80053; 81001; 82962; 85025; 97110; 97162; 97166; 97530; 97535; 97802; J7030; J7050; A4216

== ENCOUNTER → 2017-07-30 02:27 | Outpatient (CLI) | payer MEDICARE, SELFPAY ==
--- NOTE | 2017-07-30 02:30 | CT_ITS ---
STUDY: CT ABDOMEN AND PELVIS WITH CONTRAST REASON FOR EXAM: Female, 62 years old. Known umbilical hernia. Vomiting RADIATION DOSAGE (If Supplied By Facility): CTDIvol = ( 21.35 ) mGy, DLP = ( 1395.53 ) mGycm TECHNIQUE: Transaxial images were obtained from the dome of the diaphragm to the symphysis pubis without oral contrast. 100ML ml of Isovue 300 contrast was administered. Sagittal and coronal images were reconstructed. Individualized dose optimization techniques were used for this CT. COMPARISON: None. FINDINGS: The lung bases are clear. The liver is normal with no dilated intrahepatic biliary radicles. Previous cholecystectomy. The spleen, and both adrenals are normal. The pancreas is atrophic The kidneys are normal with no masses, calculi or hydronephrosis. The stomach is normal. There is no acute appendicitis or diverticulitis.. There is a large umbilical hernia with a closed loop obstruction of small bowel within the hernial sac. There is no ascites, free intraperitoneal air or any evidence of epiploic appendagitis. The vascular structures in the retroperitoneum are normal The bones and joints seen are normal with no osteolytic or osteoblastic changes There is no retrocrural, retroperitoneal or mesenteric adenopathy. There is no mesenteric mistiness The urinary bladder is normal.. The atrophic uterus There is no inguinal or pelvic adenopathy and there is no inguinal hernia.. CT/Abdomen/Pelvis W IV Cont ONLY IMPRESSION: A closed loop small bowel obstruction within an umbilical hernia Electronically Signed: Juan Jose MeeksYelena, at 4:00 EDT Tel , Service support ,
== END ==
PROVIDERS: Family Provider Internal Medicine; PCP Internal Medicine; Visit Provider Family Medicine Geriatric Medicine
DX: R11.10 Vomiting, unspecified (principal)
CPT/HCPCS: 74177; Q9967

== ENCOUNTER 2017-07-30 08:25 | Inpatient (IN) | payer MEDICARE, SELFPAY ==
[2017-07-30] VITALS (20 sets, daily range): BP systolic 112–154; BP diastolic 52–101; PULSE 73–100; RESP 16–18; TEMP 36.6–37.3; O2SAT 3–100; BMI 51.7; BMI 31.6; BMI 49.9
--- NOTE | 2017-07-30 08:46 | EKG12_ITS ---
Test Reason : N/V Blood Pressure : / mmHG Vent. Rate : 068 BPM Atrial Rate : 068 BPM P-R Int : 200 ms QRS Dur : 094 ms QT Int : 388 ms P-R-T Axes : 037 -09 044 degrees QTc Int : 412 ms Normal sinus rhythm Normal ECG Confirmed by CIRILO FAGAN, DENISHA ([id number]), general expeditor YAO LORENZO ([id number]) on 08/01/2017 2:55:22 PM Referred By: DAVID Confirmed By:DENISHA KERR MD
--- NOTE | 2017-07-30 08:47 | RAD_ITS ---
STUDY: X-RAY - ABDOMEN/PELVIS REASON FOR EXAM: Female, 62 years old. NG tube placement verification. TECHNIQUE: Frontal view of the upper abdomen, lower chest. COMPARISON: CT of the abdomen and pelvis performed July 30, 2017. FINDINGS: NG tube is present with the tip projected into the body of the stomach. A single dilated loop of small bowel is noted in the left lower quadrant. There is no demonstrated free abdominal air. The visualized liver, spleen and kidneys are grossly normal in size and morphology. There are cholecystectomy clips. Normal visualized osseous structures. RAD/Abdomen Single View (Portable) IMPRESSION: Tip of NG tube projecting over the body of the stomach. Electronically Signed: Hao Anna MD at 10:54 EDT , Service support ,
--- NOTE | 2017-07-30 08:52 | NURSING ---
DR GARZA FOR DR HERNANDEZ
[2017-07-30] MEDS: HYDROmorphone 1 MG/ML Syringe IV (08:54)
[2017-07-30] MEDS: 0.9% Normal Saline 1,000 ML 125 ML IV ×2 (08:54→18:23)
[2017-07-30] MEDS: Ondansetron 4 MG/2 ML Vial IV ×2 (08:54→09:43)
--- NOTE | 2017-07-30 09:01 | ED.VISSUMM ---
- ER Visit Summary Date of Service: 07/30/17 Chief Complaint: [Abdominal pain] History of Present Illness: The patient is a 62 F [presents with abdominal pain that started yesterday. Patient rates her pain a 6 out of 10 currently. Patient had it throughout the night and she has been vomiting. Patient currently in the transitional care unit of the hospital rehabbing for generalized weakness. Patient is a diabetic and has a history of hypertension. Patient has history of decubitus ulcers. Patient apparently has a wound VAC. Patient had a CT scan of the abdomen and pelvis overnight as well as blood work. Dr. Bingham saw the patient] this morning and referred patient to the emergency department as on CT was noted that patient had an umbilical hernia with a closed loop small bowel obstruction. Patient denies any fevers. Patient denies any diarrhea. Physical Examination: [HEENT-PERRLA, EOMI. Cranial nerves II through XII grossly intact. TMs clear. Mucous membranes moist. No adenopathy. Cardiovascular-regular rate and rhythm without murmur or ectopy Lungs-clear to auscultation, chest wall stable without crepitus or subcu emphysema Abdomen-normoactive bowel sounds, soft. Patient has a large umbilical hernia that is tender to palpation. I was unable to reduce the hernia. There is no evidence of erythema or discoloration to the hernia. Extremities-intact ?4, normal range of motion, normal pulses, atraumatic] Test Results: CBC with differential performed earlier today showed a white blood cell count of 10.7, hemoglobin 10.8, hematocrit 33, platelets 144. Chemistries unremarkable. Glucose was 295. EKG and lactic acid were ordered and are currently pending. Patient also had a troponin ordered. [] Emergency Department Course and Treatment: [Patient had an IV line established. Patient had an NG tube placed to low intermittent suction. Patient case discussed immediately with Dr. Chambers who was on for the [facility] as the patient would like to remain within the [facility] system given her primary care physician is Dr. Sorenson. Patient also will be discussed with hospitalist consulting sales manager at the request of Dr. Chambers.] Treatment Plan: [Admit for surgical treatment of incarcerated umbilical hernia] Disposition: [Admit] Impression: [Incarcerated umbilical hernia with small bowel obstruction] This note was generated with [employer] software. It may contain incorrect words, spelling, and punctuation that were not noted in review of the chart prior to signing ED Disposition - Plan for ED Patient: Chief Complaint: Nausea/Vomiting/Diarrhea Referrals: Brittany Sorenson MD [Primary Care Provider] -
--- NOTE | 2017-07-30 09:05 | ED.DCSUM_ITS ---
- ER Visit Summary Date of Service: 07/30/17 Chief Complaint: [Abdominal pain] History of Present Illness: The patient is a 62 F [presents with abdominal pain that started yesterday. Patient rates her pain a 6 out of 10 currently. Patient had it throughout the night and she has been vomiting. Patient currently in the transitional care unit of the hospital rehabbing for generalized weakness. Patient is a diabetic and has a history of hypertension. Patient has history of decubitus ulcers. Patient apparently has a wound VAC. Patient had a CT scan of the abdomen and pelvis overnight as well as blood work. Dr. Bingham saw the patient] this morning and referred patient to the emergency department as on CT was noted that patient had an umbilical hernia with a closed loop small bowel obstruction. Patient denies any fevers. Patient denies any diarrhea. Physical Examination: [HEENT-PERRLA, EOMI. Cranial nerves II through XII grossly intact. TMs clear. Mucous membranes moist. No adenopathy. Cardiovascular-regular rate and rhythm without murmur or ectopy Lungs-clear to auscultation, chest wall stable without crepitus or subcu emphysema Abdomen-normoactive bowel sounds, soft. Patient has a large umbilical hernia that is tender to palpation. I was unable to reduce the hernia. There is no evidence of erythema or discoloration to the hernia. Extremities-intact ?4, normal range of motion, normal pulses, atraumatic] Test Results: CBC with differential performed earlier today showed a white blood cell count of 10.7, hemoglobin 10.8, hematocrit 33, platelets 144. Chemistries unremarkable. Glucose was 295. EKG and lactic acid were ordered and are currently pending. Patient also had a troponin ordered. [] Emergency Department Course and Treatment: [Patient had an IV line established. Patient had an NG tube placed to low intermittent suction. Patient case discussed immediately with Dr. Chambers who was on for the [facility] as the patient would like to remain within the [facility] system given her primary care physician is Dr. Sorenson. Patient also will be discussed with hospitalist solderer production line at the request of Dr. Chambers.] Treatment Plan: [Admit for surgical treatment of incarcerated umbilical hernia] Disposition: [Admit] Impression: [Incarcerated umbilical hernia with small bowel obstruction] This note was generated with [employer] software. It may contain incorrect words, spelling, and punctuation that were not noted in review of the chart prior to signing ED Disposition - Plan for ED Patient: Chief Complaint: Nausea/Vomiting/Diarrhea Referrals: Brittany Sorenson MD [Primary Care Provider] -
[2017-07-30 09:53] LABS: Lactic Acid 2.1 mmol/L (0.4-2.0)
--- NOTE | 2017-07-30 09:53 | NURSING ---
lactic 2.1 called by lab
[2017-07-30 11:10] LABS: Bedside Glucose 303 mg/dL (70-110)
--- NOTE | 2017-07-30 11:59 | PCM.HP.STD ---
History of Present Illness Date of Admission: 07/30/17 The patient is a 62 year old F morbidly obese, with a history of failure to thrive, poorly controlled diabetes, s/p large excision for decubitus last week. She was in TCU when she noted her known ventral hernia to be non reducible and she experienced nausea and vomiting. She was transferred to the ER. CT scan demonstrated an incarcerated ventral hernia with small bowel. WBC - 10, Lactic Acid - 2.1. Past Medical History Past Medical History (Chronic Problems): Chronic Problems Debility (Chronic) Low back pain (Chronic) Anemia (Chronic) Panniculitis (Chronic) Diabetes mellitus (Chronic) Right ischial pressure sore, stage 2 (Chronic) may be higher stage after excision Pressure sore of left ischium, unstageable (Chronic) anticipate Stage IV after excision Incontinence of urine (Chronic) Thrombocytopenia (Chronic) Normochromic normocytic anemia (Chronic) Acute panniculitis (Chronic) Hyperlipidemia (Chronic) Umbilical hernia (Chronic) Morbid obesity (Chronic) Osteoarthritis (Chronic) Depression (Chronic) Hypertension (Chronic) Type 2 diabetes mellitus (Chronic) Allergies amoxicillin Adverse Reaction (Verified 07/30/17 08:26) Other latex Adverse Reaction (Verified 07/30/17 08:26) Other Home Medications: Ambulatory Orders Medication Instructions Recorded Citalopram [Celexa] 20 mg PO DAILY 07/10/16 Metoprolol Tartrate [Lopressor 50 mg PO BREAKFAST 07/10/16 (beta tristen)] Metoprolol Tartrate [Lopressor 100 mg PO QHS 07/10/16 (beta tristen)] Gabapentin [Neurontin] 300 mg PO BID 07/22/17 Clindamycin [Cleocin IVPB] 600 mg IV Q8 07/26/17 Diclofenac [Voltaren] 50 mg PO TID PRN tablet 07/26/17 Menthol/Lanolin/Calamine/Znox 1 applic TOPICAL BID 07/26/17 [Calmoseptine Ointment] Metformin HCl [Glucophage] 500 mg PO BIDCM 07/26/17 Morphine Sulfate [Ms Contin] 60 mg PO BID #6 tablet.er 07/26/17 Mupirocin [Bactroban] 1 applic TOPICAL .QDAILY 07/26/17 Nutritional Supplement [Bernard - 1 packet PO BIDCM 07/26/17 ORANGE FLAVOR] Nystatin Powder [Mycostatin Powder] 1 applic TOPICAL BID 07/26/17 Tizanidine HCl [Zanaflex] 4 mg PO Q6H PRN tablet 07/26/17 levoFLOXacin tablet [Levaquin 500 mg PO DAILY@0600 07/26/17 tablet] Acetaminophen [Tylenol Tablet] 1,000 mg PO Q8H PRN PRN 07/30/17 Bisacodyl [Laxative Suppository] 10 mg RC DAILY PRN PRN 07/30/17 Calamine/Phenol Liquid [Calamine 1 applic TP BID 07/30/17 Phenolated Lotion] Enoxaparin Sodium [Lovenox] 40 mg SQ DAILY 07/30/17 Glucagon 1 mg IM PRN PRN 07/30/17 Insulin Aspart [Novolog Flexpen 7 units SC TIDCM 07/30/17 ([facility])] Insulin Detemir [Levemir] 10 unit SQ BID 07/30/17 Mag Hydrox/Al Hydrox/Simeth 30 ml PO Q4H PRN PRN 07/30/17 [Mylanta II] Ondansetron [Zofran] 8 mg PO Q8H PRN PRN 07/30/17 Polyethylene Glycol 3350 [Miralax] 17 gm PO DAILY 07/30/17 Senna/Docusate Sodium [Senokot-S, 2 tablet PO BID 07/30/17 Kiana-Colace] Smz/Tmp Ds [Bactrim Ds] 1 tablet PO BID 07/30/17 Surgical History: cholecystectomy, - - Bilateral ischial wound debridement. Psychiatric History: Depression COMPLEX CARE NURSE History: No pertinent COMPLEX CARE NURSE history Smoking Status: Never smoker - *Family History Paternal History Items: Diabetes Maternal History Items: No pertinent history Review of Systems Constitutional: Denies: Chills, Fever, Weight Change HEENT: Denies: Head Aches, Sinus Congestion, Sinus Drainage Cardiovascular: Denies: Chest Pain, Palpitations Respiratory: Denies: Cough, Shortness of breath at rest, Sputum production Gastrointestinal: Reports: Abdominal Pain, Nausea, Vomiting Genitourinary: Denies: Dysuria Musculoskeletal: Denies: Joint Pain, Joint Tenderness Skin: Denies: Rash, Wounds Neurological: Denies: Numbness, Tingling, Focal weakness Psychiatric: Denies: Anxiety, Depression, Homicidal Ideations, Suicidal Ideations Hematologic/ Lymphatic: Denies: Easy Bruising, Easy Bleeding VTE Information - Inpt Only VTE Present on Admission: No VTE Mechan Device Prophylaxis: SCD's VTE Pharm Prophylaxis ordered?: No - Physical Exam General: Alert, Oriented x3, Cooperative Lungs: Clear to auscultation, Normal air movement Cardiovascular: Regular rate, Regular Rhythm Abdomen: Bowel Sounds Present, Soft, Tender, Hernia - non reducible Vital Signs Temp Pulse Resp BP Pulse Ox 98.4 F 73 18 128/52 H 99 07/30/17 10:56 07/30/17 10:56 07/30/17 10:56 07/30/17 10:56 07/30/17 10:56 Oxygen Delivery Method Room Air Weight: 78.471 kg Body Mass Index (BMI) 31.6 POC Glucose 07/30/17 11:08 POC Glucose 303 H Assessment/Plan incarcerated ventral hernia with small bowel. multiple medical comorbidities I plan to perform a repair of her ventral hernia without mesh, possible small bowel resection. The risks, benefits, alternatives and possible complications were discussed and the patient agrees to surgery. Will have medicine assist with management of comorbidities.
--- NOTE | 2017-07-30 12:00 | HERN_PTH ---
PATIENT: KIMBERLY ROBBINS LOC: MS2 U#:[id number] AGE/SX: 62/F ROOM: [facility] RE07/30/[address]: Fritz Yao MD : [id number] BED: 1 DIS: 08/02/2017 SPEC #: [id number] RECD: 07/30/17 13:39 STATUS: MELANIA REQ #: [id number] REYNA: 07/30/17 12:[address]: Bay Rodriguez DEPT: SURGICAL PATHOLOGY RECD BY: [place] ENTERED: 07/30/17 13:50 SP TYPE: Hernia OTHR DR: MD Fritz Hassan MD Tissues: HERNIA Procedures: Surgery Specimen Level II Comments: @ Ordering doctor for II edited from to @ by BRIAN at 07/31/17 0843 @ Submitting doctor edited from to DR.RGUTTM Terry by BRIAN at 07/31/17 0843 HEADER OPERATION: Hernia, ventral repair with mesh PRE-OP DIAGNOSIS: Incarcerated ventral hernia TISSUE SUBMITTED: Hernia sac MICROSCOPIC DIAGNOSIS Ventral hernia sac, herniorrhaphy: Fibrosis and minimal chronic inflammation. AM:eva 07/31/17 MICROSCOPIC DESCRIPTION Slides are reviewed. GROSS DESCRIPTION Received in fixative is one container labeled with the patient's name and designated hernia sac. The specimen consists of a fibromembranous sac with attached adipose tissue measuring 10 cm in length and up to 9 cm in diameter. The attached adipose tissue measures 6 x 5 x 1 cm. No mass lesion is identified. Bankruptcy Processor sections are submitted in one cassette. / SJ:eva 07/30/17 TC:5 [facility]: [id number]
--- NOTE | 2017-07-30 13:05 | NS ---
Check accuracy of patient's weight. Pt was 124.4 kg/ 274.3# yesterday on Transitional Care Unit. Current wt in EMR is 78.471kg/ 173#.
--- NOTE | 2017-07-30 13:08 | PCA ---
PT OFF FLOOR
[2017-07-30 13:18] LABS: Reflex Lactate? Y
[2017-07-30] MEDS: Bupivacaine 0.25% 30 ML Vial (13:46)
--- NOTE | 2017-07-30 13:50 | PCM.OPRPT ---
Report of Operation Date of Procedure: 07/30/17 Pre-Operative Diagnosis: incarcerated ventral hernia Post-Operative Diagnosis: incarcerated ventral hernia, viablwe bowel Surgery/Procedure Performed:: simple repair of incarcerated ventral hernia fingernail technician: None Type of Anesthesia:: General Anesthesiologist: Jerry Donald [id number] Specimen's removed: hernia sac Drains: NG Estimated Blood Loss (mL): 50 Fluids Replaced: 800 Description of Procedure: The patient was brought to the operating suite. Sign in was performed verifying patient, site, procedure, position, and DVT prophylaxis with SCDs. Patient received 3 g Ancef antibiotic prophylaxis. She was also on clindamycin for her decubitus. Following induction of general anesthetic, the patients abdomen was prepped and draped in the usual fashion. Timeout was performed verifying patient, site, position. THe incarcerated hernia could not be reduced. A curvilinear incision was made in the midline and around the umbilicus. dissection carried down around the large hernia sac to the umbilical root fascia. The hernia sac was opened carefully. There were loops of collapsed and distended bowel present in the hernia sac. This could not be eaily reduced, so the superior fascia was opened slightly. This allowed reduction first of the collapsed bowel and then the distended bowel. The bowel was viable. THe hernia sac was then completely dissected. There few 2 adhesions between the bowel and the hernia sac that were divided and a few light adhesions at the fascial margin that were divided. The hernia sac was then completely excised to a clean fascial margin. The fascia defect was closed with #1 figuyre of 8 sutures with the knots buried. Following this the umbilical root was tacked back down with a 3-0 Vicryl suture. Subcutaneous fat was closed with interrupted 3-0 Vicryl suture. Skin was closed with [place]. Steri-Strips and bandages were applied. The patient was brought to recovery room in stable condition. - Admit VTE Documentation VTE Present on Admission: No VTE Mechan Device Prophylaxis: SCD's VTE Pharm Prophylaxis ordered?: No
[2017-07-30] MEDS: Clindamycin 600 MG/50 ML BAG 100 MG IV ×2 (14:13→23:17)
[2017-07-30 15:01] LABS: Bedside Glucose 236 mg/dL (70-110)
[2017-07-30 17:00] LABS: Bedside Glucose 245 mg/dL (70-110)
--- NOTE | 2017-07-30 18:28 | PCM.HP.STD ---
Problem List (1) Debility Status: Chronic (2) Low back pain Status: Chronic Qualifiers: Chronicity: chronic Back pain laterality: bilateral Sciatica presence: without sciatica Qualified Code(s): M54.5 - Low back pain; G89.29 - Other chronic pain (3) Decubitus ulcer of left ischium, stage 4 Status: Chronic (4) Right ischial pressure sore, stage 3 Status: Chronic (5) Diabetic neuropathy Status: Chronic Qualifiers: Diabetes mellitus type: type 2 Diabetes mellitus complication detail: diabetic polyneuropathy Qualified Code(s): E11.42 - Type 2 diabetes mellitus with diabetic polyneuropathy (6) Diabetes mellitus Status: Chronic Qualifiers: Diabetes mellitus type: type 2 Diabetes mellitus termite treater insulin use: with termite treater use Diabetes mellitus complication status: with neurologic complications Diabetes mellitus complication detail: with polyneuropathy Qualified Code(s): E11.42 - Type 2 diabetes mellitus with diabetic polyneuropathy; 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 Patient is a 62 years old female who was [facility], discharged from acute care. She developed nausea and vomiting with bilious emesis, scheduled for CT of abdomen for today, which showed incarcerated umbilical hernia with small bowel obstruction. She was sent to ED, but the hernia was not reducible. Surgery was consulted, underwent simple umbilical hernia repair on 07/30/17. She was afebrile, normal blood pressure, and normal oxygen saturation. WBC 10.7, Hgb 10.8, creatinine 1.02, but lactic acid was 2.1. Past Medical History Past Medical History (Chronic Problems): Chronic Problems Debility (Chronic) Low back pain (Chronic) Decubitus ulcer of left ischium, stage 4 (Chronic) Right ischial pressure sore, stage 3 (Chronic) Diabetic neuropathy (Chronic) Anemia (Chronic) Panniculitis (Chronic) Diabetes mellitus (Chronic) Right ischial pressure sore, stage 2 (Chronic) may be higher stage after excision Pressure sore of left ischium, unstageable (Chronic) anticipate Stage IV after excision Incontinence of urine (Chronic) Thrombocytopenia (Chronic) Normochromic normocytic anemia (Chronic) Acute panniculitis (Chronic) Hyperlipidemia (Chronic) Umbilical hernia (Chronic) Morbid obesity (Chronic) Osteoarthritis (Chronic) Depression (Chronic) Hypertension (Chronic) Type 2 diabetes mellitus (Chronic) Allergies amoxicillin Adverse Reaction (Verified 07/30/17 08:26) Other latex Adverse Reaction (Verified 07/30/17 08:26) Other Home Medications: Ambulatory Orders Medication Instructions Recorded Citalopram [Celexa] 20 mg PO DAILY 07/10/16 Metoprolol Tartrate [Lopressor 50 mg PO BREAKFAST 07/10/16 (beta tristen)] Metoprolol Tartrate [Lopressor 100 mg PO QHS 07/10/16 (beta tristen)] Gabapentin [Neurontin] 300 mg PO BID 07/22/17 Clindamycin [Cleocin IVPB] 600 mg IV Q8 07/26/17 Diclofenac [Voltaren] 50 mg PO TID PRN tablet 07/26/17 Menthol/Lanolin/Calamine/Znox 1 applic TOPICAL BID 07/26/17 [Calmoseptine Ointment] Metformin HCl [Glucophage] 500 mg PO BIDCM 07/26/17 Morphine Sulfate [Ms Contin] 60 mg PO BID #6 tablet.er 07/26/17 Mupirocin [Bactroban] 1 applic TOPICAL .QDAILY 07/26/17 Nutritional Supplement [Bernard - 1 packet PO BIDCM 07/26/17 ORANGE FLAVOR] Nystatin Powder [Mycostatin Powder] 1 applic TOPICAL BID 07/26/17 Tizanidine HCl [Zanaflex] 4 mg PO Q6H PRN tablet 07/26/17 levoFLOXacin tablet [Levaquin 500 mg PO DAILY@0600 07/26/17 tablet] Acetaminophen [Tylenol Tablet] 1,000 mg PO Q8H PRN PRN 07/30/17 Bisacodyl [Laxative Suppository] 10 mg RC DAILY PRN PRN 07/30/17 Calamine/Phenol Liquid [Calamine 1 applic TP BID 07/30/17 Phenolated Lotion] Enoxaparin Sodium [Lovenox] 40 mg SQ DAILY 07/30/17 Glucagon 1 mg IM PRN PRN 07/30/17 Insulin Aspart [Novolog Flexpen 7 units SC TIDCM 07/30/17 (BK)] Insulin Detemir [Levemir] 10 unit SQ BID 07/30/17 Mag Hydrox/Al Hydrox/Simeth 30 ml PO Q4H PRN PRN 07/30/17 [Mylanta II] Ondansetron [Zofran] 8 mg PO Q8H PRN PRN 07/30/17 Polyethylene Glycol 3350 [Miralax] 17 gm PO DAILY 07/30/17 Senna/Docusate Sodium [Senokot-S, 2 tablet PO BID 07/30/17 Kiana-Colace] Smz/Tmp Ds [Bactrim Ds] 1 tablet PO BID 07/30/17 Surgical History: cholecystectomy, - - Bilateral ischial wound debridement. Psychiatric History: Depression VAUDEVILLE ACTOR History: No pertinent VAUDEVILLE ACTOR history Smoking Status: Never smoker - *Family History Paternal History Items: Diabetes Maternal History Items: No pertinent history Review of Systems Comment: ROS: In general: She has poor health overall, with stage 3 to 4 pressure ulcer of ischial process, chronic back pain, morbid obesity. She denied of any fever or chills. HEENT: Unremarkable. Patient denied of any dizziness, chronic headache, blurred vision, double vision, dry mouth, or nasal congestion. CV/respiratory: There is no exertional shortness of breath, chest pain, palpitation, wheezing, cough, claudication, cold feet, or peripheral edema. GI: Nausea and vomiting. She had minimal abdominal pain. No hematemesis or hematochezia. : Patient denied any significant urinary symptoms. Neurology: Unremarkable. There is no history of seizure as an adult. Psychological: Unremarkable. ?. Endocrine: Unremarkable. Musculoskeletal: Chronic back pain. Severe decubitus ulcer. VTE Information - Inpt Only VTE Present on Admission: No VTE Mechan Device Prophylaxis: None VTE Pharm Prophylaxis ordered?: Yes Objective: In general, patient is a well-nourished and developed adult. HEENT: Head is atraumatic, and normocephalic. Pupils are equal, round, and reactive to light and accommodations. Neck is supple. There is no lymphadenopathy, or thyromegaly. Oral mucosa is pink, and moist. There are no lesions. NG tube in place. Heart: Auscultation is normal with regular rhythm and rate. There is no extra heart sounds, or murmurs. S1 and S2 are present. Point of maximal impulse is not displaced. Lungs: Lungs are clear to auscultation bilaterally. There is no wheezing, or crackles. Abdomen: Abdominal wall is soft. Tender around incisional area. Obese. There is no palpable mass or organomegaly. Decreased bowel sounds. Wound Vac in place for ischial ulcer. Extremities: There is no cyanosis or clubbing. Peripheral pulses are palpable. There is no edema. Skin: There are no any skin discoloration or lesions. Neurological: CN II - XII are intact. Sensory and motor functions are grossly normal with no obvious deficit. Cerebellar functions are within normal range. Gait was not tested. - Physical Exam Vital Signs Temp Pulse Resp BP Pulse Ox 99.1 F 86 16 127/67 H 100 07/30/17 18:24 07/30/17 18:24 07/30/17 18:24 07/30/17 18:24 07/30/17 18:24 Oxygen Flow Rate (L/min) 2 Oxygen Delivery Method Nasal Cannula Weight: 273 lb Body Mass Index (BMI) 49.9 Finger Stick Blood Glucose 236 Intake and Output for Last 24 Hours 07/28/17 07/29/17 07/30/17 23:59 23:59 23:59 Intake Total 1510 / 1510 Output Total 700 / 700 Balance 810 / 810 Laboratory Tests Past 24 Hrs 07/30/17 14:30 Lactic Acid Cancelled POC Glucose 07/30/17 07/30/17 07/30/17 16:44 14:27 11:08 POC Glucose 245 H 236 H 303 H Diagnostic Data KUB X-Ray 07/30/17 08:47 IMPRESSION: Tip of NG tube projecting over the body of the stomach. Electronically Signed: Hao Anna MD at 10:54 EDT , Service support , Assessment/Plan Patient is a 62 years old female who was under [facility] and [facility] 07[facility], discharged from acute care. She developed nausea and vomiting with bilious emesis, scheduled for CT of abdomen for today, which showed incarcerated umbilical hernia with small bowel obstruction. She was sent to ED, but the hernia was not reducible. Surgery was consulted, underwent simple umbilical hernia repair on 07/30/17. She was afebrile, normal blood pressure, and normal oxygen saturation. WBC 10.7, Hgb 10.8, creatinine 1.02, but lactic acid was 2.1. #1 Incarcerated umbilical hernia, s/p hernia repair with reduction of bowel, 07/30/17. She is doing well after surgery. Continue NG suction. #2 Ischial ulcer, stage 3 to 4, bilateral. Plastic surgery has been following. Wound Vac in place. #3 DM II. Continue current insulin regimen. #4 Diabetic polyneuropathy. #5 morbid obesity. Continue calorie restricted diabetic diet. #6 Generalized weakness / debility. Back to [facility] when she recovers from surgery. #7 Essential hypertension. Blood pressure is adequate. #8 Chronic back pain. VTE prophylaxis: heparin SQ. GI prophylaxis: H2 tristen IV patient is full code. Disposition: Back to TCU when stable. Code Visit Inpatient E&M: 73248 Init Hosp L3
[2017-07-30] MEDS: Morphine 2 MG/ML Syringe IV (18:33)
--- NOTE | 2017-07-30 18:39 | HP.PCM_ITS ---
Problem List (1) Debility Status: Chronic (2) Low back pain Status: Chronic Qualifiers: Chronicity: chronic Back pain laterality: bilateral Sciatica presence: without sciatica Qualified Code(s): M54.5 - Low back pain; G89.29 - Other chronic pain (3) Decubitus ulcer of left ischium, stage 4 Status: Chronic (4) Right ischial pressure sore, stage 3 Status: Chronic (5) Diabetic neuropathy Status: Chronic Qualifiers: Diabetes mellitus type: type 2 Diabetes mellitus complication detail: diabetic polyneuropathy Qualified Code(s): E11.42 - Type 2 diabetes mellitus with diabetic polyneuropathy (6) Diabetes mellitus Status: Chronic Qualifiers: Diabetes mellitus type: type 2 Diabetes mellitus intermediate frame tender insulin use: with intermediate frame tender use Diabetes mellitus complication status: with neurologic complications Diabetes mellitus complication detail: with polyneuropathy Qualified Code(s): E11.42 - Type 2 diabetes mellitus with diabetic polyneuropathy; 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 Patient is a 62 years old female who was under treatment and [facility] 07/26/[facility], discharged from acute care. She developed nausea and vomiting with bilious emesis, scheduled for CT of abdomen for today, which showed incarcerated umbilical hernia with small bowel obstruction. She was sent to ED, but the hernia was not reducible. Surgery was consulted, underwent simple umbilical hernia repair on 07/30/17. She was afebrile, normal blood pressure, and normal oxygen saturation. WBC 10.7, Hgb 10.8, creatinine 1.02, but lactic acid was 2.1. Past Medical History Past Medical History (Chronic Problems): Chronic Problems Debility (Chronic) Low back pain (Chronic) Decubitus ulcer of left ischium, stage 4 (Chronic) Right ischial pressure sore, stage 3 (Chronic) Diabetic neuropathy (Chronic) Anemia (Chronic) Panniculitis (Chronic) Diabetes mellitus (Chronic) Right ischial pressure sore, stage 2 (Chronic) may be higher stage after excision Pressure sore of left ischium, unstageable (Chronic) anticipate Stage IV after excision Incontinence of urine (Chronic) Thrombocytopenia (Chronic) Normochromic normocytic anemia (Chronic) Acute panniculitis (Chronic) Hyperlipidemia (Chronic) Umbilical hernia (Chronic) Morbid obesity (Chronic) Osteoarthritis (Chronic) Depression (Chronic) Hypertension (Chronic) Type 2 diabetes mellitus (Chronic) Allergies amoxicillin Adverse Reaction (Verified 07/30/17 08:26) Other latex Adverse Reaction (Verified 07/30/17 08:26) Other Home Medications: Ambulatory Orders Medication Instructions Recorded Citalopram [Celexa] 20 mg PO DAILY 07/10/16 Metoprolol Tartrate [Lopressor 50 mg PO BREAKFAST 07/10/16 (beta tristen)] Metoprolol Tartrate [Lopressor 100 mg PO QHS 07/10/16 (beta tristen)] Gabapentin [Neurontin] 300 mg PO BID 07/22/17 Clindamycin [Cleocin IVPB] 600 mg IV Q8 07/26/17 Diclofenac [Voltaren] 50 mg PO TID PRN tablet 07/26/17 Menthol/Lanolin/Calamine/Znox 1 applic TOPICAL BID 07/26/17 [Calmoseptine Ointment] Metformin HCl [Glucophage] 500 mg PO BIDCM 07/26/17 Morphine Sulfate [Ms Contin] 60 mg PO BID #6 tablet.er 07/26/17 Mupirocin [Bactroban] 1 applic TOPICAL .QDAILY 07/26/17 Nutritional Supplement [Bernard - 1 packet PO BIDCM 07/26/17 ORANGE FLAVOR] Nystatin Powder [Mycostatin Powder] 1 applic TOPICAL BID 07/26/17 Tizanidine HCl [Zanaflex] 4 mg PO Q6H PRN tablet 07/26/17 levoFLOXacin tablet [Levaquin 500 mg PO DAILY@0600 07/26/17 tablet] Acetaminophen [Tylenol Tablet] 1,000 mg PO Q8H PRN PRN 07/30/17 Bisacodyl [Laxative Suppository] 10 mg RC DAILY PRN PRN 07/30/17 Calamine/Phenol Liquid [Calamine 1 applic TP BID 07/30/17 Phenolated Lotion] Enoxaparin Sodium [Lovenox] 40 mg SQ DAILY 07/30/17 Glucagon 1 mg IM PRN PRN 07/30/17 Insulin Aspart [Novolog Flexpen 7 units SC TIDCM 07/30/17 (BK)] Insulin Detemir [Levemir] 10 unit SQ BID 07/30/17 Mag Hydrox/Al Hydrox/Simeth 30 ml PO Q4H PRN PRN 07/30/17 [Mylanta II] Ondansetron [Zofran] 8 mg PO Q8H PRN PRN 07/30/17 Polyethylene Glycol 3350 [Miralax] 17 gm PO DAILY 07/30/17 Senna/Docusate Sodium [Senokot-S, 2 tablet PO BID 07/30/17 Kiana-Colace] Smz/Tmp Ds [Bactrim Ds] 1 tablet PO BID 07/30/17 Surgical History: cholecystectomy, - - Bilateral ischial wound debridement. Psychiatric History: Depression CONCRETER History: No pertinent CONCRETER history Smoking Status: Never smoker - *Family History Paternal History Items: Diabetes Maternal History Items: No pertinent history Review of Systems Comment: ROS: In general: She has poor health overall, with stage 3 to 4 pressure ulcer of ischial process, chronic back pain, morbid obesity. She denied of any fever or chills. HEENT: Unremarkable. Patient denied of any dizziness, chronic headache, blurred vision, double vision, dry mouth, or nasal congestion. CV/respiratory: There is no exertional shortness of breath, chest pain, palpitation, wheezing, cough, claudication, cold feet, or peripheral edema. GI: Nausea and vomiting. She had minimal abdominal pain. No hematemesis or hematochezia. : Patient denied any significant urinary symptoms. Neurology: Unremarkable. There is no history of seizure as an adult. Psychological: Unremarkable. ?. Endocrine: Unremarkable. Musculoskeletal: Chronic back pain. Severe decubitus ulcer. VTE Information - Inpt Only VTE Present on Admission: No VTE Mechan Device Prophylaxis: None VTE Pharm Prophylaxis ordered?: Yes Objective: In general, patient is a well-nourished and developed adult. HEENT: Head is atraumatic, and normocephalic. Pupils are equal, round, and reactive to light and accommodations. Neck is supple. There is no lymphadenopathy, or thyromegaly. Oral mucosa is pink, and moist. There are no lesions. NG tube in place. Heart: Auscultation is normal with regular rhythm and rate. There is no extra heart sounds, or murmurs. S1 and S2 are present. Point of maximal impulse is not displaced. Lungs: Lungs are clear to auscultation bilaterally. There is no wheezing, or crackles. Abdomen: Abdominal wall is soft. Tender around incisional area. Obese. There is no palpable mass or organomegaly. Decreased bowel sounds. Wound Vac in place for ischial ulcer. Extremities: There is no cyanosis or clubbing. Peripheral pulses are palpable. There is no edema. Skin: There are no any skin discoloration or lesions. Neurological: CN II - XII are intact. Sensory and motor functions are grossly normal with no obvious deficit. Cerebellar functions are within normal range. Gait was not tested. - Physical Exam Vital Signs Temp Pulse Resp BP Pulse Ox 99.1 F 86 16 127/67 H 100 07/30/17 18:24 07/30/17 18:24 07/30/17 18:24 07/30/17 18:24 07/30/17 18:24 Oxygen Flow Rate (L/min) 2 Oxygen Delivery Method Nasal Cannula Weight: 273 lb Body Mass Index (BMI) 49.9 Finger Stick Blood Glucose 236 Intake and Output for Last 24 Hours 07/28/17 07/29/17 07/30/17 23:59 23:59 23:59 Intake Total 1510 / 1510 Output Total 700 / 700 Balance 810 / 810 Laboratory Tests Past 24 Hrs 07/30/17 14:30 Lactic Acid Cancelled POC Glucose 07/30/17 07/30/17 07/30/17 16:44 14:27 11:08 POC Glucose 245 H 236 H 303 H Diagnostic Data KUB X-Ray 07/30/17 08:47 IMPRESSION: Tip of NG tube projecting over the body of the stomach. Electronically Signed: Hao Anna MD at 10:54 EDT , Service support , Assessment/Plan Patient is a 62 years old female who was under treatment and [facility] 07/26/[facility], discharged from acute care. She developed nausea and vomiting with bilious emesis, scheduled for CT of abdomen for today, which showed incarcerated umbilical hernia with small bowel obstruction. She was sent to ED, but the hernia was not reducible. Surgery was consulted, underwent simple umbilical hernia repair on 07/30/17. She was afebrile, normal blood pressure, and normal oxygen saturation. WBC 10.7, Hgb 10.8, creatinine 1.02, but lactic acid was 2.1. #1 Incarcerated umbilical hernia, s/p hernia repair with reduction of bowel, . She is doing well after surgery. Continue NG suction. #2 Ischial ulcer, stage 3 to 4, bilateral. Plastic surgery has been following. Wound Vac in place. #3 DM II. Continue current insulin regimen. #4 Diabetic polyneuropathy. #5 morbid obesity. Continue calorie restricted diabetic diet. #6 Generalized weakness / debility. Back to [facility] when she recovers from surgery. #7 Essential hypertension. Blood pressure is adequate. #8 Chronic back pain. VTE prophylaxis: heparin SQ. GI prophylaxis: H2 tristen IV patient is full code. Disposition: Back to TCU when stable. Code Visit Inpatient E&M: 59950 Init Hosp L3
[2017-07-30] MEDS: Heparin Injection 5,000 UNITS/ML Syringe 5000 UNITS SC (22:53)
[2017-07-30] MEDS: Nystatin Powder 15gm Bottle 1 APPLIC TOPICAL (22:56)
[2017-07-30] MEDS: Metoprolol Tartrate 100 MG Tablet NG (22:57)
[2017-07-30] MEDS: Senna/Docusate Sodium 1 Tablet 2 TABLET NG (22:59)
[2017-07-30] MEDS: morphine (oral solution) 10MG/0.5ML Syringe 30 MG NG (23:00)
[2017-07-30 23:51] LABS: Bedside Glucose 179 mg/dL (70-110)
[2017-07-31] VITALS (12 sets, daily range): BP systolic 117–122; BP diastolic 56–70; PULSE 75–83; RESP 16–18; TEMP 36.7–37.1; O2SAT 95–98
[2017-07-31] MEDS: 0.9% Normal Saline 1,000 ML 125 ML IV ×3 (02:38→20:25)
[2017-07-31] MEDS: Morphine 2 MG/ML Syringe IV ×2 (02:47→08:42)
[2017-07-31 06:33] LABS: Absolute Lymphocyte Count 1.97 X10^3/ul (0.83-4.51); Absolute Neutrophil Count 7.1 X10^3/uL (2.0-7.7); Basophil# 0.02 X10^3/uL; Basophil% 0.2 % (0-1); Eosinophil# 0.06 X10^3/uL; Eosinophils% 0.6 % (0-5); Hematocrit 32.5 % (37-47); Hemoglobin 10.5 g/dl (12.0-15.0); Lymphocyte # 1.97 X10^3/ul (4.0); Lymphocyte % 18.6 % (19-41); Mean Corp Hgb Conc 32.3 g/gl (32-36); Mean Corpuscular Hgb 29.2 pg (27.0-32.0); Mean Corpuscular Volume 90.3 fL (81-99); Mean Platelet Vol. 10.3 fl (6.2-12.0); Monocyte# 1.47 X10^3/uL; Monocyte% 13.9 % (0-10); Neutrophil # 7.05 X10^3/uL (2.7-7.7); Neutrophil % 66.4 % (47-70); Platelet Count 176 K/mm3 (150-450); RBC Distribution Width CV 14.5 % (11.6-14.6); RBC Distribution Width SD 47.6 fl (35.1-43.9); White Blood Count 10.6 K/mm3 (4.4-11.0)
[2017-07-31 06:34] LABS: POSITIVE COUNT NO; POSITIVE DIFFERENTIAL NO; POSITIVE MORPHOLOGY NO
[2017-07-31] MEDS: Clindamycin 600 MG/50 ML BAG 100 MG IV ×3 (06:36→22:02)
[2017-07-31 06:53] LABS: Anion Gap 6 (5-15); BUN 28 mg/dL (7-18); BUN/Creat Ratio 28.9 RATIO (10-20); Chloride 102 mmol/L (98-107); Creatinine, Serum 0.97 mg/dL (0.55-1.02); EST Glomerular Filtration Rate 62 mL/min (>60); Est Glom Filt Rate - Afr Amer 75 mL/min (>60); Estimated Creatinine Clearance 48.78 ml/min; Glucose 153 mg/dL (74-106); Sodium Level 137 mmol/L (136-145)
[2017-07-31 06:55] LABS: Bedside Glucose 166 mg/dL (70-110)
[2017-07-31] MEDS: Metoprolol Tartrate 50 MG Tablet NG (08:03)
[2017-07-31] MEDS: Gabapentin 300 MG Capsule NG (08:03)
[2017-07-31] MEDS: Mupirocin Ointment 22gm Tube 1 APPLIC TOPICAL (08:41)
[2017-07-31] MEDS: 0.9% NaCl PICC Flush 10 ML IV (08:42)
--- NOTE | 2017-07-31 08:49 | CASEMGMT ---
Social Work Note Face to face with the pt to discuss discharge planning. Introduced self and role at [facility]. Pt known to SW from past admissions. Transferred from TCU yesterday, 07/30, and intends on returning once medically stable. Denies any other concerns at this time. Placed call to Nancy on TCU and informed pt intends on returning. Nancy confirms that they will have a bed once she is medically stable. SW to continue to follow and assist with discharge planning. Plan: TCU for rehabilitation and skilled care. Lisa De Los Santos, RADIO TELEVISION ANNOUNCER, LIGHT OIL OPERATOR
[2017-07-31] MEDS: Citalopram 20 MG Tablet NG (10:37)
[2017-07-31] MEDS: Senna/Docusate Sodium 1 Tablet 2 TABLET NG (10:37)
[2017-07-31] MEDS: Polyethylene Glycol 3350 17 GM PACKET GT (10:38)
[2017-07-31] MEDS: Nystatin Powder 15gm Bottle 1 APPLIC TOPICAL ×2 (10:39→22:02)
[2017-07-31] MEDS: morphine (oral solution) 10MG/0.5ML Syringe 30 MG NG ×2 (10:43→14:54)
[2017-07-31] MEDS: Heparin Injection 5,000 UNITS/ML Syringe 5000 UNITS SC ×2 (10:44→22:02)
--- NOTE | 2017-07-31 11:21 | PCM.PROGNOTE ---
Subjective: She is feeling better today. No nausea, but has NT tube on suction. Discomfort / pain at buttock after changing Wound Vac. - Physical Exam General: Alert, Oriented x3, Cooperative, Well developed, Well nourished HEENT: Atraumatic, PERRLA, Normocephalic Oral: Moist Mucosa, No Gingival or Mucosal Lesions/ Ulcerations Neck: Supple, No JVD, Negative Carotid Bruits, Negative Hepatojugular Reflux, No Nodes, No Nuchal Rigidity Lungs: Clear to auscultation, Normal air movement, No rhonchi, No wheeze, No rales Cardiovascular: Regular rate, Regular Rhythm, Normal S1, Normal S2, No murmurs, No Ectopic Activity Abdomen: Soft, Non Tender, Non-Distended, Bowel Sounds Not Present, Obese Extremities: No clubbing, No cyanosis, No edema Skin: Ulcer/ Wound - ischial ulcer, bilateral. Wound Vac in place. Musculoskeletal: No Muscle Wasting Lymphatic: No Cervical, Supraclavicular, or Inguinal Adenopathy Neurological: Cranial nerves II-XII grossly intact, Neuro grossly intact Psych/Mental Status: Normal Affect Vital Signs Temp Pulse Resp BP Pulse Ox 98.2 F 82 18 120/56 L 96 07/31/17 07:46 07/31/17 08:03 07/31/17 07:46 07/31/17 08:03 07/31/17 07:46 Oxygen Flow Rate (L/min) 2 Oxygen Delivery Method Room Air Weight: 273 lb Body Mass Index (BMI) 49.9 Finger Stick Blood Glucose 236 Intake and Output for Last 24 Hours 07/29/17 07/30/17 07/31/17 23:59 23:59 23:59 Intake Total 1550 / 1550 1578 / 1578 Output Total 700 / 700 530 / 530 Balance 850 / 850 1048 / 1048 Laboratory Tests Past 24 Hrs 07/30/17 07/31/17 07/31/17 14:30 06:16 06:16 WBC 10.6 RBC 3.60 L Hgb 10.5 L Hct 32.5 L MCV 90.3 MCH 29.2 MCHC 32.3 RDW 14.5 RDW Differential 47.6 H Plt Count 176 MPV 10.3 Immature Gran % (Auto) 0.300 Neut % (Auto) 66.4 Lymph % (Auto) 18.6 L [place] % (Auto) 13.9 H Eos % (Auto) 0.6 Baso % (Auto) 0.2 Absolute Neuts (auto) 7.1 Absolute Lymphs (auto) 1.97 Total Counted Not Reportable Sodium 137 Potassium 4.0 Chloride 102 Carbon Dioxide 29.0 Anion Gap 6 BUN 28 H Creatinine 0.97 Estim Creat Clear Calc 48.78 Est GFR (MDRD) Af Amer 75 Est GFR (MDRD) Non-Af 62 BUN/Creatinine Ratio 28.9 H Glucose 153 H Lactic Acid Cancelled Calcium 9.0 POC Glucose 07/31/17 07/30/17 07/30/17 06:33 22:48 16:44 POC Glucose 166 H 179 H 245 H 07/30/17 14:27 POC Glucose 236 H Diagnostic Data KUB X-Ray 07/30/17 08:47 IMPRESSION: Tip of NG tube projecting over the body of the stomach. Electronically Signed: Hao Anna MD at 10:54 EDT , Service support , Active Medications Acetaminophen (Tylenol) 650 mg PO Q6H PRN PRN PRN Reason: Mild Pain (1-3)/Temp > 100.7 F Al Hydroxide/Mg Hydroxide (Mylanta Ii) 30 ml NG Q6H PRN PRN PRN Reason: Gastric burning Bisacodyl (Dulcolax) 10 mg RECTAL DAILY PRN PRN PRN Reason: Constipation Citalopram Hydrobromide (Celexa) 20 mg NG DAILY [facility] Last Admin: 07/31/17 10:37 Dose: 20 mg Dextrose (D50w Syringe) 0 gm IV X1 PRN; Protocol PRN Reason: Hypoglycemia Gabap[facility] ([facility]urontin) [facility] Last Admin: 07/31/17 08:03 Dose: 300 mg Glucagon () 1 mg IM .X1 PRN PRN Reason: Hypoglycemia Heparin Sodium (Porcine) () 5,000 units SC BID [facility] Last Admin: 07/31/17 10:44 Dose: 5,000 units Sodium Chloride () 1,000 mls @ 125 mls/hr IV .Q8H [facility] Last Admin: 07/31/17 10:57 Dose: 125 mls/hr Clindamycin Phosphate (Cleocin) 600 mg in 50 mls @ 100 mls/hr IV Q8 [facility] Last Admin: 07/31/17 06:36 Dose: 100 mls/hr Famotidine (Pepcid 20mg) 20 mg in 50 mls @ 150 mls/hr IV Q12 [facility] Last Admin: 07/31/17 10:43 Dose: 150 mls/hr Insulin Aspart (Novolog Flexpen (Bkc)) 0 units SC ACHS [facility] PRN Reason: Protocol Last Admin: 07/31/17 06:36 Dose: 1 units Insulin Aspart (Novolog Flexpen (Bkc)) 7 units SC TIDCM [facility] Last Admin: 07/31/17 11:21 Dose: Not Given Insulin Detemir (Levemir (Bk)) 10 units SC BID [facility] Last Admin: 07/30/17 22:54 Dose: 10 u Magnesium Hydroxide (Milk Of Magnesia) 30 ml NG DAILY PRN PRN PRN Reason: Constipation Metoprolol Tartrate (Lopressor (Beta Agatha)) 100 mg NG QHS [facility] Last Admin: 07/30/17 22:57 Dose: 100 mg Metoprolol Tartrate (Lopressor (Beta Agatha)) 50 mg NG BREAKFAST [facility] Last Admin: 07/31/17 08:03 Dose: 50 mg Morphine Sulfate () 2 - 4 mg IV Q4H PRN PRN PRN Reason: MOD-SEVERE PAIN (4-10/10) Last Admin: 07/31/17 08:42 Dose: 2 mg Morphine Sulfate () 2 - 4 mg IV Q4H PRN PRN PRN Reason: MOD-SEVERE PAIN (4-10/10) Morphine Sulfate (Roxanol (Ir Oral Solution)) 30 mg NG 4X/DAY [facility] Last Admin: 07/31/17 10:43 Dose: 30 mg Mupirocin (Bactroban) 1 applic TOPICAL DAILY [facility] PRN Reason: Protocol Last Admin: 07/31/17 08:41 Dose: 1 applicatio Nystatin (Mycostatin Powder) 1 applic TOPICAL BID [facility] PRN Reason: Protocol Last Admin: 07/31/17 10:39 Dose: 1 applicatio Ondansetron HCl (Zofran) 4 mg IV Q6H PRN PRN PRN Reason: NAUSEA Polyethylene Glycol (Miralax) 17 gm GT DAILY [facility] Last Admin: 07/31/17 10:38 Dose: 17 gm Senna/Docusate Sodium (Senokot-S, Kinaa-Colace) 2 tablet NG BID [facility] Last Admin: 07/31/17 10:37 Dose: 2 tablet Sodium Chloride () 10 ml IV UD PRN PRN Reason: PICC FLUSH Last Admin: 07/31/17 08:42 Dose: 10 ml Sodium Chloride () 5 - 30 ml IV UD PRN PRN Reason: SALINE FLUSH Tizanidine HCl (Zanaflex) 4 mg NG Q6H PRN PRN Reason: PAIN Zolpidem Tartrate (Ambien (Generic)) 5 mg GT QHS PRN PRN PRN Reason: INSOMNIA Medical Necessity - Tobacco Use Smoking Status: Never smoker Assessment/Plan Patient is a 62 years old female who was under treatment and rehab at TCU since 07/26/17, discharged from acute care. She developed nausea and vomiting with bilious emesis, scheduled for CT of abdomen for today, which showed incarcerated umbilical hernia with small bowel obstruction. She was sent to ED, but the hernia was not reducible. Surgery was consulted, underwent simple umbilical hernia repair on 07/30/17. She was afebrile, normal blood pressure, and normal oxygen saturation. WBC 10.7, Hgb 10.8, creatinine 1.02, but lactic acid was 2.1. #1 Incarcerated umbilical hernia, s/p hernia repair with reduction of bowel, 07/30/17, ileus from bowel obstruction. She is doing well after surgery. Continue NG suction. IVF support while NPO. #2 Ischial ulcer, stage 3 to 4, bilateral. Plastic surgery has been following. Wound Vac in place. #3 DM II. Continue current insulin regimen. Hold meal time Novolog if BS <160. Insulin sliding scale added. #4 Diabetic polyneuropathy. #5 morbid obesity. Continue calorie restricted diabetic diet. #6 Generalized weakness / debility. Back to TCU when she recovers from surgery. #7 Essential hypertension. Blood pressure is adequate. #8 Chronic back pain. Stable. VTE prophylaxis: heparin SQ. GI prophylaxis: H2 agatha IV patient is full code. Disposition: Back to TCU when stable. Code Visit Inpatient E&M: 77586 Subs Hosp L2
--- NOTE | 2017-07-31 11:33 | PN_ITS ---
Subjective: She is feeling better today. No nausea, but has NT tube on suction. Discomfort / pain at buttock after changing Wound Vac. - Physical Exam General: Alert, Oriented x3, Cooperative, Well developed, Well nourished HEENT: Atraumatic, PERRLA, Normocephalic Oral: Moist Mucosa, No Gingival or Mucosal Lesions/ Ulcerations Neck: Supple, No JVD, Negative Carotid Bruits, Negative Hepatojugular Reflux, No Nodes, No Nuchal Rigidity Lungs: Clear to auscultation, Normal air movement, No rhonchi, No wheeze, No rales Cardiovascular: Regular rate, Regular Rhythm, Normal S1, Normal S2, No murmurs, No Ectopic Activity Abdomen: Soft, Non Tender, Non-Distended, Bowel Sounds Not Present, Obese Extremities: No clubbing, No cyanosis, No edema Skin: Ulcer/ Wound - ischial ulcer, bilateral. Wound Vac in place. Musculoskeletal: No Muscle Wasting Lymphatic: No Cervical, Supraclavicular, or Inguinal Adenopathy Neurological: Cranial nerves II-XII grossly intact, Neuro grossly intact Psych/Mental Status: Normal Affect Vital Signs Temp Pulse Resp BP Pulse Ox 98.2 F 82 18 120/56 L 96 07/31/17 07:46 07/31/17 08:03 07/31/17 07:46 07/31/17 08:03 07/31/17 07:46 Oxygen Flow Rate (L/min) 2 Oxygen Delivery Method Room Air Weight: 273 lb Body Mass Index (BMI) 49.9 Finger Stick Blood Glucose 236 Intake and Output for Last 24 Hours 07/29/17 07/30/17 07/31/17 23:59 23:59 23:59 Intake Total 1550 / 1550 1578 / 1578 Output Total 700 / 700 530 / 530 Balance 850 / 850 1048 / 1048 Laboratory Tests Past 24 Hrs 07/30/17 07/31/17 07/31/17 14:30 06:16 06:16 WBC 10.6 RBC 3.60 L Hgb 10.5 L Hct 32.5 L MCV 90.3 MCH 29.2 MCHC 32.3 RDW 14.5 RDW Differential 47.6 H Plt Count 176 MPV 10.3 Immature Gran % (Auto) 0.300 Neut % (Auto) 66.4 Lymph % (Auto) 18.6 L [place] % (Auto) 13.9 H Eos % (Auto) 0.6 Baso % (Auto) 0.2 Absolute Neuts (auto) 7.1 Absolute Lymphs (auto) 1.97 Total Counted Not Reportable Sodium 137 Potassium 4.0 Chloride 102 Carbon Dioxide 29.0 Anion Gap 6 BUN 28 H Creatinine 0.97 Estim Creat Clear Calc 48.78 Est GFR (MDRD) Af Amer 75 Est GFR (MDRD) Non-Af 62 BUN/Creatinine Ratio 28.9 H Glucose 153 H Lactic Acid Cancelled Calcium 9.0 POC Glucose 07/31/17 07/30/17 07/30/17 06:33 22:48 16:44 POC Glucose 166 H 179 H 245 H 07/30/17 14:27 POC Glucose 236 H Diagnostic Data KUB X-Ray 07/30/17 08:47 IMPRESSION: Tip of NG tube projecting over the body of the stomach. Electronically Signed: Hao Anna MD at 10:54 EDT , Service support , Active Medications Acetaminophen (Tylenol) 650 mg PO Q6H PRN PRN PRN Reason: Mild Pain (1-3)/Temp > 100.7 F Al Hydroxide/Mg Hydroxide (Mylanta Ii) 30 ml NG Q6H PRN PRN PRN Reason: Gastric burning Bisacodyl (Dulcolax) 10 mg RECTAL DAILY PRN PRN PRN Reason: Constipation Citalopram Hydrobromide (Celexa) 20 mg NG DAILY [facility] Last Admin: 07/31/17 10:37 Dose: 20 mg Dextrose (D50w Syringe) 0 gm IV X1 PRN; Protocol PRN Reason: Hypoglycemia [facility] Last Admin: 07/31/17 08:03 Dose: 300 mg Glucagon () 1 mg IM .X1 PRN PRN Reason: Hypoglycemia Heparin Sodium (Porcine) () 5,000 units SC BID [facility] Last Admin: 07/31/17 10:44 Dose: 5,000 units Sodium Chloride () 1,000 mls @ 125 mls/hr IV .Q8H [facility] Last Admin: 07/31/17 10:57 Dose: 125 mls/hr Clindamycin Phosphate (Cleocin) 600 mg in 50 mls @ 100 mls/hr IV Q8 [facility] Last Admin: 07/31/17 06:36 Dose: 100 mls/hr Famotidine (Pepcid 20mg) 20 mg in 50 mls @ 150 mls/hr IV Q12 [facility] Last Admin: 07/31/17 10:43 Dose: 150 mls/hr Insulin Aspart (Novolog Flexpen (Bkc)) 0 units SC ACHS [facility] PRN Reason: Protocol Last Admin: 07/31/17 06:36 Dose: 1 units Insulin Aspart (Novolog Flexpen (Bkc)) 7 units SC TIDCM [facility] Last Admin: 07/31/17 11:21 Dose: Not Given Insulin Detemir (Levemir (Bk)) 10 units SC BID [facility] Last Admin: 07/30/17 22:54 Dose: 10 u Magnesium Hydroxide (Milk Of Magnesia) 30 ml NG DAILY PRN PRN PRN Reason: Constipation Metoprolol Tartrate (Lopressor (Beta Agatha)) 100 mg NG QHS [facility] Last Admin: 07/30/17 22:57 Dose: 100 mg Metoprolol Tartrate (Lopressor (Beta Agatha)) 50 mg NG BREAKFAST [facility] Last Admin: 07/31/17 08:03 Dose: 50 mg Morphine Sulfate () 2 - 4 mg IV Q4H PRN PRN PRN Reason: MOD-SEVERE PAIN (4-10/10) Last Admin: 07/31/17 08:42 Dose: 2 mg Morphine Sulfate () 2 - 4 mg IV Q4H PRN PRN PRN Reason: MOD-SEVERE PAIN (4-10/10) Morphine Sulfate (Roxanol (Ir Oral Solution)) 30 mg NG 4X/DAY [facility] Last Admin: 07/31/17 10:43 Dose: 30 mg Mupirocin (Bactroban) 1 applic TOPICAL DAILY [facility] PRN Reason: Protocol Last Admin: 07/31/17 08:41 Dose: 1 applicatio Nystatin (Mycostatin Powder) 1 applic TOPICAL BID [facility] PRN Reason: Protocol Last Admin: 07/31/17 10:39 Dose: 1 applicatio Ondansetron HCl (Zofran) 4 mg IV Q6H PRN PRN PRN Reason: NAUSEA Polyethylene Glycol (Miralax) 17 gm GT DAILY [facility] Last Admin: 07/31/17 10:38 Dose: 17 gm Senna/Docusate Sodium (Senokot-S, [place]-Colace) 2 tablet NG BID [facility] Last Admin: 07/31/17 10:37 Dose: 2 tablet Sodium Chloride () 10 ml IV UD PRN PRN Reason: PICC FLUSH Last Admin: 07/31/17 08:42 Dose: 10 ml Sodium Chloride () 5 - 30 ml IV UD PRN PRN Reason: SALINE FLUSH Tizanidine HCl (Zanaflex) 4 mg NG Q6H PRN PRN Reason: PAIN Zolpidem Tartrate (Ambien (Generic)) 5 mg GT QHS PRN PRN PRN Reason: INSOMNIA Medical Necessity - Tobacco Use Smoking Status: Never smoker Assessment/Plan Patient is a 62 years old female who was under treatment and rehab at TCU since 07/26/17, discharged from acute care. She developed nausea and vomiting with bilious emesis, scheduled for CT of abdomen for today, which showed incarcerated umbilical hernia with small bowel obstruction. She was sent to ED, but the hernia was not reducible. Surgery was consulted, underwent simple umbilical hernia repair on 07/30/17. She was afebrile, normal blood pressure, and normal oxygen saturation. WBC 10.7, Hgb 10.8, creatinine 1.02, but lactic acid was 2.1. #1 Incarcerated umbilical hernia, s/p hernia repair with reduction of bowel, , ileus from bowel obstruction. She is doing well after surgery. Continue NG suction. IVF support while NPO. #2 Ischial ulcer, stage 3 to 4, bilateral. Plastic surgery has been following. Wound Vac in place. #3 DM II. Continue current insulin regimen. Hold meal time Novolog if BS <160. Insulin sliding scale added. #4 Diabetic polyneuropathy. #5 morbid obesity. Continue calorie restricted diabetic diet. #6 Generalized weakness / debility. Back to TCU when she recovers from surgery. #7 Essential hypertension. Blood pressure is adequate. #8 Chronic back pain. Stable. VTE prophylaxis: heparin SQ. GI prophylaxis: H2 agatha IV patient is full code. Disposition: Back to TCU when stable. Code Visit Inpatient E&M: 74438 Subs Hosp L2
--- NOTE | 2017-07-31 11:45 | NURSING ---
Wound photo: left buttock/ischium
[2017-07-31 11:55] LABS: Bedside Glucose 138 mg/dL (70-110)
--- NOTE | 2017-07-31 13:51 | CASEMGMT ---
Social Work Note Discuss LTAC with pt who is agreeable to a referral being sent and discussing their services and seeing if she qualifies. Inform that they would come down this afternoon or tomorrow and pt expresses understanding. Updated RN La LOVE, and will continue to follow and assist as needed. Pt to remain on TCU list, until determination made regarding LTAC. Lisa De Los Santos, BAG LOADER MACHINE OPERATOR, MANAGER GYN
--- NOTE | 2017-07-31 16:21 | CASEMGMT ---
Cely, from [facility], was contacted with referral. Cely states she will be out to visit the patient tomorrow between 0830 - 0900. IVAN will prepare clinicals to provide to [facility].
[2017-07-31 18:35] LABS: Bedside Glucose 118 mg/dL (70-110)
[2017-07-31] MEDS: morphine (oral solution) 10MG/0.5ML Syringe 30 MG PO ×2 (18:57→22:04)
[2017-07-31] MEDS: Gabapentin 300 MG Capsule PO (18:57)
--- NOTE | 2017-07-31 19:11 | PN.SURG_ITS ---
Subjective: no flat us earlier but flat as is the day progressed - Physical Exam General: Alert, Oriented x3 Lungs: Clear to auscultation, Normal air movement Cardiovascular: Regular rate, Regular Rhythm Abdomen: Bowel Sounds Present, Soft, Tender - at incision site with incision clean, dry and intact Vital Signs Temp Pulse Resp BP Pulse Ox 98.7 F 81 16 120/69 97 07/31/17 14:48 07/31/17 16:00 07/31/17 14:48 07/31/17 14:48 07/31/17 14:48 Oxygen Flow Rate (L/min) 2 Oxygen Delivery Method Room Air Weight: 123.831 kg Body Mass Index (BMI) 49.9 Finger Stick Blood Glucose 236 Intake and Output for Last 24 Hours 07/29/17 07/30/17 07/31/17 23:59 23:59 23:59 Intake Total 1550 / 1550 3049 / 3049 Output Total 700 / 700 1080 / 1080 Balance 850 / 850 1968 / 1968 Laboratory Tests Past 24 Hrs 07/31/17 07/31/17 06:16 06:16 WBC 10.6 RBC 3.60 L Hgb 10.5 L Hct 32.5 L MCV 90.3 MCH 29.2 MCHC 32.3 RDW 14.5 RDW Differential 47.6 H Plt Count 176 MPV 10.3 Immature Gran % (Auto) 0.300 Neut % (Auto) 66.4 Lymph % (Auto) 18.6 L [place] % (Auto) 13.9 H Eos % (Auto) 0.6 Baso % (Auto) 0.2 Absolute Neuts (auto) 7.1 Absolute Lymphs (auto) 1.97 Total Counted Not Reportable Sodium 137 Potassium 4.0 Chloride 102 Carbon Dioxide 29.0 Anion Gap 6 BUN 28 H Creatinine 0.97 Estim Creat Clear Calc 48.78 Est GFR (MDRD) Af Amer 75 Est GFR (MDRD) Non-Af 62 BUN/Creatinine Ratio 28.9 H Glucose 153 H Calcium 9.0 POC Glucose 07/31/17 07/31/17 07/31/17 18:21 11:51 06:33 POC Glucose 118 H 138 H 166 H 07/30/17 22:48 POC Glucose 179 H Medical Necessity - Tobacco Use Smoking Status: Never smoker Assessment/Plan incarcerated ventral hernia with small bowel. multiple medical comorbidities POD # 1 s/p repair of her ventral hernia without mesh, the patient's small bowel was initially dusky but was pink after reduction. It was somewhat distended with one loop so anticipated the possibility of an ileus. The patient had minimal nasogastric output overnight. The nasogastric tube became partially withdrawn, so I asked that it be removed, but the patient be maintained nothing by mouth until she had improved flatus and/or bowel movements or exam demonstrates no distention in the morning. Clinically ,her abdomen is benign.her white blood cell count is within normal limits. Her blood glucoses have been improved postoperatively, she is on a sliding scale. Appreciate medicine service care for her medical comorbidities.
[2017-07-31] MEDS: Metoprolol Tartrate 100 MG Tablet PO (22:02)
[2017-07-31] MEDS: Senna/Docusate Sodium 1 Tablet 2 TABLET PO (22:03)
[2017-07-31 23:41] LABS: Bedside Glucose 91 mg/dL (70-110)
[2017-08-01] VITALS (12 sets, daily range): BP systolic 101–116; BP diastolic 49–64; PULSE 61–80; RESP 16–18; TEMP 36.2–36.6; O2SAT 96–98
[2017-08-01] MEDS: 0.9% Normal Saline 1,000 ML 125 ML IV ×2 (05:30→23:27)
[2017-08-01 05:55] LABS: Absolute Lymphocyte Count 1.74 X10^3/ul (0.83-4.51); Absolute Neutrophil Count 4.1 X10^3/uL (2.0-7.7); Basophil# 0.02 X10^3/uL; Basophil% 0.3 % (0-1); Eosinophil# 0.13 X10^3/uL; Eosinophils% 1.9 % (0-5); Hemoglobin 8.9 g/dl (12.0-15.0); Lymphocyte # 1.74 X10^3/ul (4.0); Lymphocyte % 25.6 % (19-41); Mean Corp Hgb Conc 30.7 g/gl (32-36); Mean Corpuscular Volume 94.5 fL (81-99); Mean Platelet Vol. 10.7 fl (6.2-12.0); Monocyte# 0.81 X10^3/uL; Monocyte% 11.9 % (0-10); Neutrophil # 4.09 X10^3/uL (2.7-7.7); Platelet Count 122 K/mm3 (150-450); RBC Distribution Width CV 14.2 % (11.6-14.6); RBC Distribution Width SD 46.7 fl (35.1-43.9); Red Blood Count 3.07 M/mm3 (4.2-5.4); White Blood Count 6.8 K/mm3 (4.4-11.0)
[2017-08-01 06:07] LABS: POSITIVE COUNT NO; POSITIVE DIFFERENTIAL NO; POSITIVE MORPHOLOGY NO
[2017-08-01 06:25] LABS: Anion Gap 7 (5-15); BUN 20 mg/dL (7-18); BUN/Creat Ratio 28.5 RATIO (10-20); Calcium,Total 8.4 mg/dL (8.5-10.1); Chloride 107 mmol/L (98-107); EST Glomerular Filtration Rate 90 mL/min (>60); Est Glom Filt Rate - Afr Amer 109 mL/min (>60); Glucose 74 mg/dL (74-106); Potassium 3.8 mmol/L (3.5-5.1); Sodium Level 142 mmol/L (136-145)
[2017-08-01] MEDS: Clindamycin 600 MG/50 ML BAG 100 MG IV ×2 (06:40→18:40)
[2017-08-01 07:11] LABS: Bedside Glucose 84 mg/dL (70-110)
[2017-08-01] MEDS: Senna/Docusate Sodium 1 Tablet 2 TABLET PO ×2 (09:30→22:11)
[2017-08-01] MEDS: Citalopram 20 MG Tablet PO (09:31)
[2017-08-01] MEDS: Metoprolol Tartrate 50 MG Tablet PO (09:31)
[2017-08-01] MEDS: Gabapentin 300 MG Capsule PO ×2 (09:31→17:07)
[2017-08-01] MEDS: Polyethylene Glycol 3350 17 GM PACKET PO (09:31)
[2017-08-01] MEDS: morphine (oral solution) 10MG/0.5ML Syringe 30 MG PO ×4 (09:32→22:12)
[2017-08-01] MEDS: Heparin Injection 5,000 UNITS/ML Syringe 5000 UNITS SC ×2 (09:33→22:09)
[2017-08-01] MEDS: Mupirocin Ointment 22gm Tube 1 APPLIC TOPICAL (09:40)
[2017-08-01] MEDS: Nystatin Powder 15gm Bottle 1 APPLIC TOPICAL ×2 (09:41→22:10)
--- NOTE | 2017-08-01 10:45 | CASEMGMT ---
[facility], Cely, in hospital and reviewing case. Cely states that patient should be approved for LTAC stay. She will discuss with the patient. Care team updated.
[2017-08-01 12:26] LABS: Bedside Glucose 80 mg/dL (70-110)
--- NOTE | 2017-08-01 12:52 | PN.SURG_ITS ---
Subjective: positive flatus - Physical Exam General: Alert, Oriented x3 Lungs: Clear to auscultation, Normal air movement Cardiovascular: Regular rate, Regular Rhythm Abdomen: Bowel Sounds Present, Soft - incision site clean, dry and intact- carol[place] and place Vital Signs Temp Pulse Resp BP Pulse Ox 97.7 F L 72 18 116/61 98 08/01/17 09:16 08/01/17 09:31 08/01/17 09:16 08/01/17 09:16 08/01/17 09:16 Oxygen Flow Rate (L/min) 2 Oxygen Delivery Method Room Air Weight: 123.831 kg Body Mass Index (BMI) 49.9 Finger Stick Blood Glucose 236 Intake and Output for Last 24 Hours 07/30/17 07/31/17 08/01/17 23:59 23:59 23:59 Intake Total 1550 / 1550 3650 / 3650 1746 / 1746 Output Total 700 / 700 1255 / 1255 600 / 600 Balance 850 / 850 2395 / 2395 1146 / 1146 Laboratory Tests Past 24 Hrs 08/01/17 08/01/17 05:10 05:10 WBC 6.8 RBC 3.07 L Hgb 8.9 L Hct 29.0 L MCV 94.5 MCH 29.0 MCHC 30.7 L RDW 14.2 RDW Differential 46.7 H Plt Count 122 L MPV 10.7 Immature Gran % (Auto) 0.300 Neut % (Auto) 60.0 Lymph % (Auto) 25.6 [place] % (Auto) 11.9 H Eos % (Auto) 1.9 Baso % (Auto) 0.3 Absolute Neuts (auto) 4.1 Absolute Lymphs (auto) 1.74 Total Counted Not Reportable Sodium 142 Potassium 3.8 Chloride 107 Carbon Dioxide 28.0 Anion Gap 7 BUN 20 H Creatinine 0.70 Estim Creat Clear Calc 67.60 Est GFR (MDRD) Af Amer 109 Est GFR (MDRD) Non-Af 90 BUN/Creatinine Ratio 28.5 H Glucose 74 Calcium 8.4 L POC Glucose 08/01/17 08/01/17 07/31/17 11:32 06:38 23:24 POC Glucose 80 84 91 07/31/17 18:21 POC Glucose 118 H Medical Necessity - Tobacco Use Smoking Status: Never smoker Assessment/Plan incarcerated ventral hernia with small bowel. multiple medical comorbidities POD # 2 s/p repair of her ventral hernia without mesh, the patient's small bowel was initially dusky but was pink after reduction. It was somewhat distended with one loop so anticipated the possibility of an ileus. The patient had minimal nasogastric output overnight. The nasogastric tube was removed yesterday. The patient noted flatus overnight. If she has improved bowel sounds. We will start with liquids and advance as tolerated to a diabetic diet. I'm comfortable with the patient being return to rehabilitation once she is tolerating a diet. We will plan for removal of [place] at approximate 7-10 days postoperatively. If the patient is in rehabilitation locally. We can remove the [place], if she is at a distant site. They can remove those at the LTAC. Clinically ,her abdomen is benign.her white blood cell count is within normal limits. Her blood glucoses have been improved postoperatively, she is on a sliding scale. Appreciate medicine service care for her medical comorbidities.
[2017-08-01] MEDS: Glucerna Shake 120 ML LIQUID PO ×2 (13:51→17:11)
--- NOTE | 2017-08-01 14:44 | CASEMGMT ---
Patient did agree to LTAC placement. will notify Cely, from [facility], when the patient has discharge orders. Cely anticipates that an isolation room will be available tomorrow.
--- NOTE | 2017-08-01 15:45 | CASEMGMT ---
Social Work Pt planning to go to LTAC at d/c. Phone call to Gayle in TCU and notified her pt will not be returning to TCU at this time. JAKE White
[2017-08-01 17:15] LABS: Bedside Glucose 94 mg/dL (70-110)
--- NOTE | 2017-08-01 18:23 | PCM.PROGNOTE ---
Subjective: She feels well today. NG tube discontinued, tolerated. She was started on clear liquid diet, tolerating so far. - Physical Exam General: Alert, Oriented x3, Cooperative, Well developed, Well nourished HEENT: Atraumatic, PERRLA, Normocephalic Oral: Moist Mucosa, No Gingival or Mucosal Lesions/ Ulcerations Neck: Supple, No JVD, Negative Carotid Bruits, Negative Hepatojugular Reflux, No Nodes, No Nuchal Rigidity Lungs: Clear to auscultation, Normal air movement, No rhonchi, No wheeze, No rales Cardiovascular: Regular rate, Regular Rhythm, Normal S1, Normal S2, No murmurs, No Ectopic Activity Abdomen: Soft, Non Tender, Non-Distended, Bowel Sounds Not Present, Obese Extremities: No clubbing, No cyanosis, No edema Skin: Ulcer/ Wound - ischial ulcer, bilateral. Wound Vac in place. Musculoskeletal: No Muscle Wasting Lymphatic: No Cervical, Supraclavicular, or Inguinal Adenopathy Neurological: Cranial nerves II-XII grossly intact, Neuro grossly intact Psych/Mental Status: Normal Affect - Physical Exam Vital Signs Temp Pulse Resp BP Pulse Ox 97.2 F L 67 18 116/49 L 98 08/01/17 14:00 08/01/17 15:58 08/01/17 14:00 08/01/17 14:00 08/01/17 14:00 Oxygen Flow Rate (L/min) 2 Oxygen Delivery Method Room Air Weight: 273 lb Body Mass Index (BMI) 49.9 Finger Stick Blood Glucose 236 Intake and Output for Last 24 Hours 07/30/17 07/31/17 08/01/17 23:59 23:59 23:59 Intake Total 1550 / 1550 3650 / 3650 1746 / 1746 Output Total 700 / 700 1255 / 1255 600 / 600 Balance 850 / 850 2395 / 2395 1146 / 1146 Laboratory Tests Past 24 Hrs 08/01/17 08/01/17 05:10 05:10 WBC 6.8 RBC 3.07 L Hgb 8.9 L Hct 29.0 L MCV 94.5 MCH 29.0 MCHC 30.7 L RDW 14.2 RDW Differential 46.7 H Plt Count 122 L MPV 10.7 Immature Gran % (Auto) 0.300 Neut % (Auto) 60.0 Lymph % (Auto) 25.6 [place] % (Auto) 11.9 H Eos % (Auto) 1.9 Baso % (Auto) 0.3 Absolute Neuts (auto) 4.1 Absolute Lymphs (auto) 1.74 Total Counted Not Reportable Sodium 142 Potassium 3.8 Chloride 107 Carbon Dioxide 28.0 Anion Gap 7 BUN 20 H Creatinine 0.70 Estim Creat Clear Calc 67.60 Est GFR (MDRD) Af Amer 109 Est GFR (MDRD) Non-Af 90 BUN/Creatinine Ratio 28.5 H Glucose 74 Calcium 8.4 L POC Glucose 08/01/17 08/01/17 08/01/17 17:04 11:32 06:38 POC Glucose 94 80 84 07/31/17 07/31/17 23:24 18:21 POC Glucose 91 118 H Diagnostic Data KUB X-Ray 07/30/17 08:47 IMPRESSION: Tip of NG tube projecting over the body of the stomach. Electronically Signed: Hao Anna MD at 10:54 EDT , Service support , Medical Necessity - Tobacco Use Smoking Status: Never smoker Assessment/Plan Patient is a 62 years old female who was under treatment and rehab at TCU since 07/26/17, discharged from acute care. She developed nausea and vomiting with bilious emesis, scheduled for CT of abdomen for today, which showed incarcerated umbilical hernia with small bowel obstruction. She was sent to ED, but the hernia was not reducible. Surgery was consulted, underwent simple umbilical hernia repair on 07/30/17. She was afebrile, normal blood pressure, and normal oxygen saturation. WBC 10.7, Hgb 10.8, creatinine 1.02, but lactic acid was 2.1. #1 Incarcerated umbilical hernia, s/p hernia repair with reduction of bowel, 07/30/17, ileus from bowel obstruction. She is doing well after surgery. NG discontinued, clear liquid diet stated (08/01). #2 Ischial ulcer, Stage 3 right buttock closed, stage 4 left ischial ulcer with wound bav. Plastic surgery has been following. Wound Vac in place. LTAC had evaluated for continuation of care. #3 DM II. Continue current insulin regimen. Hold meal time Novolog if BS <160. Insulin sliding scale added. #4 Diabetic polyneuropathy. #5 morbid obesity. Continue calorie restricted diabetic diet. #6 Generalized weakness / debility. Back to TCU when she recovers from surgery. #7 Essential hypertension. Blood pressure is adequate. #8 Chronic back pain. Stable. VTE prophylaxis: heparin SQ. GI prophylaxis: H2 tristen IV patient is full code. Disposition: Likely to LTAC. Code Visit Inpatient E&M: 85184 Subs Hosp L2
[2017-08-01] MEDS: Metoprolol Tartrate 100 MG Tablet PO (22:11)
[2017-08-01 22:35] LABS: Bedside Glucose 94 mg/dL (70-110)
[2017-08-02] VITALS (8 sets, daily range): BP systolic 103–118; BP diastolic 52–53; PULSE 63–102; RESP 18; TEMP 36.4–36.7; O2SAT 96–98
[2017-08-02 05:47] LABS: Absolute Neutrophil Count 3.4 X10^3/uL (2.0-7.7); Basophil# 0.02 X10^3/uL; Basophil% 0.3 % (0-1); Eosinophil# 0.14 X10^3/uL; Eosinophils% 2.3 % (0-5); Hematocrit 26.7 % (37-47); Hemoglobin 8.6 g/dl (12.0-15.0); Lymphocyte % 30.2 % (19-41); Mean Corp Hgb Conc 32.2 g/gl (32-36); Mean Corpuscular Hgb 29.4 pg (27.0-32.0); Mean Corpuscular Volume 91.1 fL (81-99); Mean Platelet Vol. 10.1 fl (6.2-12.0); Monocyte# 0.56 X10^3/uL; Monocyte% 9.4 % (0-10); Neutrophil # 3.42 X10^3/uL (2.7-7.7); Neutrophil % 57.5 % (47-70); POSITIVE COUNT NO; POSITIVE DIFFERENTIAL NO; Platelet Count 94 K/mm3 (150-450); RBC Distribution Width SD 46.4 fl (35.1-43.9); Red Blood Count 2.93 M/mm3 (4.2-5.4)
[2017-08-02 05:48] LABS: POSITIVE MORPHOLOGY NO
[2017-08-02 06:05] LABS: Anion Gap 3 (5-15); BUN 14 mg/dL (7-18); BUN/Creat Ratio 25.1 RATIO (10-20); Calcium,Total 8.6 mg/dL (8.5-10.1); Chloride 105 mmol/L (98-107); Creatinine, Serum 0.56 mg/dL (0.55-1.02); EST Glomerular Filtration Rate 118 mL/min (>60); Est Glom Filt Rate - Afr Amer 142 mL/min (>60); Estimated Creatinine Clearance 84.49 ml/min; Glucose 79 mg/dL (74-106); Potassium 4.1 mmol/L (3.5-5.1); Sodium Level 138 mmol/L (136-145)
[2017-08-02] MEDS: 0.9% NaCl PICC Flush 10 ML IV (06:28)
[2017-08-02] MEDS: Clindamycin 600 MG/50 ML BAG 100 MG IV ×2 (06:28→13:54)
[2017-08-02] MEDS: 0.9% Normal Saline 1,000 ML 125 ML IV (06:29)
[2017-08-02 06:40] LABS: Bedside Glucose 83 mg/dL (70-110)
--- NOTE | 2017-08-02 09:33 | CASEMGMT ---
Call received from Flores, at [facility], stating that she will let me know when she has a bed available today. Bed codes faxed to Flores. CM will continue to follow.
[2017-08-02] MEDS: Gabapentin 300 MG Capsule PO (09:54)
[2017-08-02] MEDS: Citalopram 20 MG Tablet PO (09:54)
[2017-08-02] MEDS: Heparin Injection 5,000 UNITS/ML Syringe 5000 UNITS SC (09:55)
[2017-08-02] MEDS: Metoprolol Tartrate 50 MG Tablet PO (09:55)
[2017-08-02] MEDS: Senna/Docusate Sodium 1 Tablet 2 TABLET PO (09:55)
[2017-08-02] MEDS: Nystatin Powder 15gm Bottle 1 APPLIC TOPICAL (09:55)
[2017-08-02] MEDS: Polyethylene Glycol 3350 17 GM PACKET PO (09:55)
[2017-08-02] MEDS: Mupirocin Ointment 22gm Tube 1 APPLIC TOPICAL (09:56)
[2017-08-02] MEDS: Glucerna Shake 120 ML LIQUID PO (10:00)
--- NOTE | 2017-08-02 10:58 | PCM.DC.SUM ---
Discharge Date and Diagnosis Date of Admission: 07/30/17 Date of Discharge: 08/02/17 - Primary Discharge Diagnosis Small bowel obstruction with incarcerated umbilical hernia. Ileus. - Secondary Discharge Diagnosis Chronic Problems Debility (Chronic) Low back pain (Chronic) Decubitus ulcer of left ischium, stage 4 (Chronic) Right ischial pressure sore, stage 3 (Chronic) Diabetic neuropathy (Chronic) Anemia (Chronic) Panniculitis (Chronic) Diabetes mellitus (Chronic) Right ischial pressure sore, stage 2 (Chronic) may be higher stage after excision Pressure sore of left ischium, unstageable (Chronic) anticipate Stage IV after excision Incontinence of urine (Chronic) Thrombocytopenia (Chronic) Normochromic normocytic anemia (Chronic) Acute panniculitis (Chronic) Hyperlipidemia (Chronic) Umbilical hernia (Chronic) Morbid obesity (Chronic) Osteoarthritis (Chronic) Depression (Chronic) Hypertension (Chronic) Type 2 diabetes mellitus (Chronic) Hospital Course and Treatment Imaging Results: Diagnostic Data KUB X-Ray 07/30/17 08:47 IMPRESSION: Tip of NG tube projecting over the body of the stomach. 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 Rodriguez, general surgery. Operations: - - Umbilical hernia repair, reduction of incarcerated small bowel. Procedures: Wound vac placement Summary of Care Provided: Patient is a 62 years old female who was under [facility], discharged from acute care. She developed nausea and vomiting with bilious emesis, scheduled for CT of abdomen for today, which showed incarcerated umbilical hernia with small bowel obstruction. She was sent to ED, but the hernia was not reducible. Surgery was consulted, underwent simple umbilical hernia repair on 07/30/17. She was afebrile, normal blood pressure, and normal oxygen saturation. WBC 10.7, Hgb 10.8, creatinine 1.02, but lactic acid was 2.1. #1 Incarcerated umbilical hernia, s/p hernia repair with reduction of bowel, 07/30/17, ileus from bowel obstruction. She is doing well after surgery. NG discontinued, clear liquid diet stated (08/01). Diet advanced, tolerated well. #2 Ischial ulcer, Stage 3 right buttock closed, stage 4 left ischial ulcer with wound vac. Plastic surgery has been following. Wound Vac in place. Patient is from TCU, but we thought that LTAC may be better equipped to continue her care for stage 4 ulcer. Evaluation was done. LTAC accepted for continuation of care. #3 DM II. Continue current insulin regimen. Hold meal time Novolog if BS <160. Insulin sliding scale added. #4 Diabetic polyneuropathy. #5 morbid obesity. Continue calorie restricted diabetic diet. #6 Generalized weakness / debility. Back to TCU when she recovers from surgery. #7 Essential hypertension. Blood pressure is adequate. #8 Chronic back pain. Stable. VTE prophylaxis: heparin SQ. GI prophylaxis: H2 tristen IV patient is full code. Disposition: LTAC. Discharge Diet: 2000 Calorie Control Diet Discharge Activity: No Restrictions Home Medications: Medications to take at Discharge Citalopram [Celexa] 20 mg PO DAILY 07/10/16 Metoprolol Tartrate [Lopressor (beta tristen)] 50 mg PO BREAKFAST 07/10/16 Metoprolol Tartrate [Lopressor (beta tristen)] 100 mg PO QHS 07/10/16 Gabapentin [Neurontin] 300 mg PO BID 07/22/17 Menthol/Lanolin/Calamine/Znox [Calmoseptine Ointment] 1 applic TOPICAL BID 07/26/17 Metformin HCl [Glucophage] 500 mg PO BIDCM 07/26/17 Nystatin Powder [Mycostatin Powder] 1 applic TOPICAL BID 07/26/17 Tizanidine HCl [Zanaflex] 4 mg PO Q6H PRN tablet 07/26/17 Acetaminophen [Tylenol Tablet] 1,000 mg PO Q8H PRN PRN 07/30/17 Bisacodyl [Laxative Suppository] 10 mg RC DAILY PRN PRN 07/30/17 Calamine/Phenol Liquid [Calamine Phenolated Lotion] 1 applic TP BID 07/30/17 Enoxaparin Sodium [Lovenox] 40 mg SQ DAILY 07/30/17 Insulin Aspart [Novolog Flexpen] 7 units SC TIDCM 07/30/17 Insulin Detemir [Levemir] 10 unit SQ BID 07/30/17 Mag Hydrox/Al Hydrox/Simeth [Mylanta II] 30 ml PO Q4H PRN PRN 07/30/17 Polyethylene Glycol 3350 [Miralax] 17 gm PO DAILY 07/30/17 Senna/Docusate Sodium [Senokot-S] 2 tablet PO BID 07/30/17 Clindamycin [Cleocin IVPB] 600 mg IV Q8 bag 08/02/17 Glucagon 1 mg IM .X1 PRN syringe 08/02/17 Glucerna Shake 120 ml PO 4X/DAY liquid 08/02/17 Heparin Injection 5,000 units SC BID syringe 08/02/17 Insulin Aspart [Novolog Flexpen] See Protocol SC ACHS flexpen 08/02/17 Morphine Sulfate [Ms Contin] 60 mg PO BID #6 tablet.er 08/02/17 Following Prescrptions Were Given to Patient: Morphine Sulfate [Ms Contin] 60 mg PO BID #6 tablet.er Primary Care Physician: Brittany Sorenson MD [Primary Care Provider] - Please follow up with your Primary Care Physician in: To be determined Disposition: [facility] Acute Care Patient Condition:: Stable Medical Necessity - Tobacco Use Smoking Status: Never smoker Meaningful Use Info Meaningful Use Diagnoses (Choose all that apply): None applicable Code Visit Inpatient E&M: 90489 Disch Hosp
--- NOTE | 2017-08-02 10:59 | TREXTCAR_ITS ---
- Diet 08/02/17 04:35 Diet: Carbohydrate Controlled Is pt able to select menu?: Yes Diet Comments: advance to diabetic diet - Routine Orders/Code Status Code Status: Full Code - Wound(s) pannus Wound Type: Abrasion left buttocks Wound Type: Pressure Injury Dressing Change: KCI wound VAC right buttocks Wound Type: Pressure Injury Dressing Change: bactoban with dry dressing rt abd Wound Type: Surgical Incision Dressing Change: Dry Sterile Dressing Right inner upper arm Wound Type: old picc insertion site - Problem/Diagnosis (1) Debility Status: Chronic Current Visit: Yes (2) Low back pain Status: Chronic Current Visit: Yes (3) Decubitus ulcer of left ischium, stage 4 Status: Chronic Current Visit: Yes (4) Right ischial pressure sore, stage 3 Status: Chronic Current Visit: Yes (5) Diabetic neuropathy Status: Chronic Current Visit: Yes (6) Diabetes mellitus Status: Chronic Current Visit: Yes (7) Umbilical hernia Status: Chronic Current Visit: Yes (8) Morbid obesity Status: Chronic Current Visit: Yes (9) Hypertension Status: Chronic Current Visit: Yes - Allergies/Procedures Done in Hospital Allergies/Adverse Reactions: Allergies amoxicillin Adverse Reaction (Verified 07/30/17 08:26) Other latex Adverse Reaction (Verified 07/30/17 08:26) Other - Type of Care/Length of Stay Estimated LOS: More Than 30 Days Type of Care Needed: Skilled Rehab Potential: Fair Prognosis: Fair - Additional Orders/Day of Discharge Day of Discharge: 08/02/17 - Dietary and Speech Recommendations Dietitian Recommendations/Changes: RE-CHECK PT WT- suspect error in current wt. Rec adv diet as tolerated to 1800 calorie controlled, no gastric stimulant/ low residue. Rec 1 packet Bernard BID for wound healing. - Follow Up Care Primary Care Physician: Brittany Sorenson MD [Primary Care Provider] - Please follow up with your Primary Care Physician in: To be determined
--- NOTE | 2017-08-02 11:04 | DS.PCM_ITS ---
Discharge Date and Diagnosis Date of Admission: 07/30/17 Date of Discharge: 08/02/17 - Primary Discharge Diagnosis Small bowel obstruction with incarcerated umbilical hernia. Ileus. - Secondary Discharge Diagnosis Chronic Problems Debility (Chronic) Low back pain (Chronic) Decubitus ulcer of left ischium, stage 4 (Chronic) Right ischial pressure sore, stage 3 (Chronic) Diabetic neuropathy (Chronic) Anemia (Chronic) Panniculitis (Chronic) Diabetes mellitus (Chronic) Right ischial pressure sore, stage 2 (Chronic) may be higher stage after excision Pressure sore of left ischium, unstageable (Chronic) anticipate Stage IV after excision Incontinence of urine (Chronic) Thrombocytopenia (Chronic) Normochromic normocytic anemia (Chronic) Acute panniculitis (Chronic) Hyperlipidemia (Chronic) Umbilical hernia (Chronic) Morbid obesity (Chronic) Osteoarthritis (Chronic) Depression (Chronic) Hypertension (Chronic) Type 2 diabetes mellitus (Chronic) Hospital Course and Treatment Imaging Results: Diagnostic Data KUB X-Ray 07/30/17 08:47 IMPRESSION: Tip of NG tube projecting over the body of the stomach. Electronically Signed: Hao Anna MD at 10:54 EDT , Service support , Consultations 07/30/17 11:43 Consult: Onc/Wound/dough cutter Routine Comment: Reason for Consult:: wound dressing orders Dr. Rodriguez, general surgery. Operations: - - Umbilical hernia repair, reduction of incarcerated small bowel. Procedures: Wound vac placement Summary of Care Provided: Patient is a 62 years old female who was under treatment [facility] at [facility] since 07/26/17, discharged from acute care. She developed nausea and vomiting with bilious emesis, scheduled for CT of abdomen for today, which showed incarcerated umbilical hernia with small bowel obstruction. She was sent to ED, but the hernia was not reducible. Surgery was consulted, underwent simple umbilical hernia repair on 07/30/17. She was afebrile, normal blood pressure, and normal oxygen saturation. WBC 10.7, Hgb 10.8, creatinine 1.02, but lactic acid was 2.1. #1 Incarcerated umbilical hernia, s/p hernia repair with reduction of bowel, , ileus from bowel obstruction. She is doing well after surgery. NG discontinued, clear liquid diet stated (08/01). Diet advanced, tolerated well. #2 Ischial ulcer, Stage 3 right buttock closed, stage 4 left ischial ulcer with wound vac. Plastic surgery has been following. Wound Vac in place. Patient is from TCU, but we thought that LTAC may be better equipped to continue her care for stage 4 ulcer. Evaluation was done. LTAC accepted for continuation of care. #3 DM II. Continue current insulin regimen. Hold meal time Novolog if BS <160. Insulin sliding scale added. #4 Diabetic polyneuropathy. #5 morbid obesity. Continue calorie restricted diabetic diet. #6 Generalized weakness / debility. Back to TCU when she recovers from surgery. #7 Essential hypertension. Blood pressure is adequate. #8 Chronic back pain. Stable. VTE prophylaxis: heparin SQ. GI prophylaxis: H2 tristen IV patient is full code. Disposition: LTAC. Discharge Diet: 2000 Calorie Control Diet Discharge Activity: No Restrictions Home Medications: Medications to take at Discharge Citalopram [Celexa] 20 mg PO DAILY 07/10/16 Metoprolol Tartrate [Lopressor (beta tristen)] 50 mg PO BREAKFAST 07/10/16 Metoprolol Tartrate [Lopressor (beta tristen)] 100 mg PO QHS 07/10/16 Gabapentin [Neurontin] 300 mg PO BID 07/22/17 Menthol/Lanolin/Calamine/Znox [Calmoseptine Ointment] 1 applic TOPICAL BID 07/26 Metformin HCl [Glucophage] 500 mg PO BIDCM 07/26/17 Nystatin Powder [Mycostatin Powder] 1 applic TOPICAL BID 07/26/17 Tizanidine HCl [Zanaflex] 4 mg PO Q6H PRN tablet 07/26/17 Acetaminophen [Tylenol Tablet] 1,000 mg PO Q8H PRN PRN 07/30/17 Bisacodyl [Laxative Suppository] 10 mg RC DAILY PRN PRN 07/30/17 Calamine/Phenol Liquid [Calamine Phenolated Lotion] 1 applic TP BID 07/30/17 Enoxaparin Sodium [Lovenox] 40 mg SQ DAILY 07/30/17 Insulin Aspart [Novolog Flexpen] 7 units SC TIDCM 07/30/17 Insulin Detemir [Levemir] 10 unit SQ BID 07/30/17 Mag Hydrox/Al Hydrox/Simeth [Mylanta II] 30 ml PO Q4H PRN PRN 07/30/17 Polyethylene Glycol 3350 [Miralax] 17 gm PO DAILY 07/30/17 Senna/Docusate Sodium [Senokot-S] 2 tablet PO BID 07/30/17 Clindamycin [Cleocin IVPB] 600 mg IV Q8 bag 08/02/17 Glucagon 1 mg IM .X1 PRN syringe 08/02/17 Glucerna Shake 120 ml PO 4X/DAY liquid 08/02/17 Heparin Injection 5,000 units SC BID syringe 08/02/17 Insulin Aspart [Novolog Flexpen] See Protocol SC ACHS flexpen 08/02/17 Morphine Sulfate [Ms Contin] 60 mg PO BID #6 tablet.er 08/02/17 Following Prescrptions Were Given to Patient: Morphine Sulfate [Ms Contin] 60 mg PO BID #6 tablet.er Primary Care Physician: Brittany Sorenson MD [Primary Care Provider] - Please follow up with your Primary Care Physician in: To be determined Disposition: [facility]ial Acute Care Patient Condition:: Stable Medical Necessity - Tobacco Use Smoking Status: Never smoker Meaningful Use Info Meaningful Use Diagnoses (Choose all that apply): None applicable Code Visit Inpatient E&M: 75297 Disch Hosp
--- NOTE | 2017-08-02 12:04 | CASEMGMT ---
Flores, from [facility], notified me that they now have a bed available. Updated clinicals and all discharge documentation was faxed. Transport will be arranged. IVAN will notify Flores of transport time when determined.
[2017-08-02 12:31] LABS: Bedside Glucose 219 mg/dL (70-110)
--- NOTE | 2017-08-02 14:38 | CASEMGMT ---
Flores called with report line for nurse: [phone]
--- NOTE | 2017-08-02 15:06 | NURSING ---
Call placed to Meaghan Nurse at LTAC facility that will be taking patient
[2017-08-02 17:30] LABS: Bedside Glucose 121 mg/dL (70-110)
--- NOTE | 2017-08-02 18:28 | PN.SURG_ITS ---
Subjective: tolerating liquid diet, positive flatus - Physical Exam General: Alert, Oriented x3 Lungs: Clear to auscultation, Normal air movement Cardiovascular: Regular rate, Regular Rhythm Abdomen: Bowel Sounds Present, Soft, - - periumbilical incision intact with carolina in place Vital Signs Temp Pulse Resp BP Pulse Ox 97.5 F L 74 18 103/52 L 98 08/02/17 13:53 08/02/17 13:53 08/02/17 13:53 08/02/17 13:53 08/02/17 13:53 Oxygen Flow Rate (L/min) 2 Oxygen Delivery Method Room Air Weight: 123.831 kg Body Mass Index (BMI) 49.9 Finger Stick Blood Glucose 236 Intake and Output for Last 24 Hours 07/31/17 08/01/17 08/02/17 23:59 23:59 23:59 Intake Total 3650 / 3650 2941 / 2941 1867 / 1867 Output Total 1255 / 1255 1500 / 1500 1825 / 1825 Balance 2395 / 2395 1441 / 1441 42 / 42 Laboratory Tests Past 24 Hrs 08/02/17 08/02/17 05:35 05:35 WBC 6.0 RBC 2.93 L Hgb 8.6 L Hct 26.7 L MCV 91.1 MCH 29.4 MCHC 32.2 RDW 14.0 RDW Differential 46.4 H Plt Count 94 L MPV 10.1 Immature Gran % (Auto) 0.300 Neut % (Auto) 57.5 Lymph % (Auto) 30.2 [place] % (Auto) 9.4 Eos % (Auto) 2.3 Baso % (Auto) 0.3 Absolute Neuts (auto) 3.4 Absolute Lymphs (auto) 1.80 Total Counted Not Reportable Sodium 138 Potassium 4.1 Chloride 105 Carbon Dioxide 30.0 Anion Gap 3 L BUN 14 Creatinine 0.56 Estim Creat Clear Calc 84.49 Est GFR (MDRD) Af Amer 142 Est GFR (MDRD) Non-Af 118 BUN/Creatinine Ratio 25.1 H Glucose 79 Calcium 8.6 POC Glucose 08/02/17 08/02/17 08/02/17 17:22 12:20 06:27 POC Glucose 121 H 219 H 83 08/01/17 22:20 POC Glucose 94 Medical Necessity - Tobacco Use Smoking Status: Never smoker Assessment/Plan incarcerated ventral hernia with small bowel. multiple medical comorbidities POD # 3 s/p repair of her ventral hernia without mesh, the patient's small bowel was initially dusky but was pink after reduction. It was somewhat distended with one loop so anticipated the possibility of an ileus. The patient had minimal nasogastric output overnight. The nasogastric tube was removed yesterday. The patient noted flatus overnight. If she has improved bowel sounds. We will start with liquids and advance as tolerated to a diabetic diet. I'm comfortable with the patient being return to rehabilitation once she is tolerating a diet. We will plan for removal of carolina at approximate 7-10 days postoperatively. The patient is ibeing transferred to an LTAC in [place]. They can remove the carolina in 10 days. Clinically ,her abdomen is benign.her white blood cell count is within normal limits. Her blood glucoses have been improved postoperatively, she is on a sliding scale. Appreciate medicine service care for her medical comorbidities.
== END 2017-08-02 18:50 | DRG 353 ==
LOC: ED 09:16 → MS2 10:22
PROVIDERS: Surgery; Admitting Provider Hospitalist; Emergency Provider Emergency Medicine; Family Provider Internal Medicine; PCP Internal Medicine; Visit Provider Hospitalist
DX: K43.6 Other and unspecified ventral hernia with obstruction, without gangrene (principal); L89.213 Pressure ulcer of right hip, stage 3; L89.224 Pressure ulcer of left hip, stage 4; K56.7 Ileus, unspecified; E11.42 Type 2 diabetes mellitus with diabetic polyneuropathy; E66.01 Morbid (severe) obesity due to excess calories; D69.6 Thrombocytopenia, unspecified; E11.65 Type 2 diabetes mellitus with hyperglycemia; E78.5 Hyperlipidemia, unspecified; G89.29 Other chronic pain; M54.9 Dorsalgia, unspecified; M19.90 Unspecified osteoarthritis, unspecified site; Z68.31 Body mass index [BMI] 31.0-31.9, adult; Z79.4 Long term (current) use of insulin; Z79.84 Long term (current) use of oral hypoglycemic drugs; I10 Essential (primary) hypertension; Z79.899 Other long term (current) drug therapy; M79.3 Panniculitis, unspecified; R32 Unspecified urinary incontinence; M54.30 Sciatica, unspecified side; F41.9 Anxiety disorder, unspecified; F32.9 Major depressive disorder, single episode, unspecified; R62.7 Adult failure to thrive; R53.81 Other malaise; D64.9 Anemia, unspecified
CPT/HCPCS: 36415; 36569; 74018; 74177; 80048; 82962; 83605; 84484; 85025; 88302; 93005; 97116; 97162; 97166; 97530; 99285; J7030; Q9967; A4216; J2405

== ENCOUNTER 2017-12-21 11:51 | Inpatient (IN) | payer MEDICARE, SELFPAY ==
[2017-12-21] VITALS (25 sets, daily range): BP systolic 88–134; BP diastolic 50–106; PULSE 84–155; RESP 14–19; TEMP 36.6–37.6; O2SAT 92–100; BMI 53.3; BMI 51.7; BMI 53.4
--- NOTE | 2017-12-21 12:14 | ED.RN ---
PT FEELS DEPRESSED BECAUSE HER PANNUS IS SO LARGE.
--- NOTE | 2017-12-21 12:18 | ED.RN ---
PT STATES THAT SHE USES A WHEELCHAIR TO GET AROUND HER APARTMENT.
--- NOTE | 2017-12-21 12:26 | ED.RN ---
OPEN AREA TO LT BUTTOCK WITH SKIN SLOUGHING OFF. PT STATES THAT SHE DOES NOT SEE WOUND CARE ANYMORE AND IS UNABLE TO CARE FOR WOUND HERSELF. PURULENT, RED DRAINAGE ON EMS SHEET.
[2017-12-21 13:14] LABS: Absolute Lymphocyte Count 0.73 X10^3/ul (0.83-4.51); Absolute Neutrophil Count 6.9 X10^3/uL (2.0-7.7); Basophil# 0.01 X10^3/uL; Basophil% 0.1 % (0-1); Eosinophil# 0.03 X10^3/uL; Eosinophils% 0.4 % (0-5); Hematocrit 28.5 % (37-47); Hemoglobin 9.4 g/dl (12.0-15.0); Lymphocyte # 0.73 X10^3/ul (4.0); Lymphocyte % 8.6 % (19-41); Mean Corpuscular Hgb 29.4 pg (27.0-32.0); Mean Corpuscular Volume 89.1 fL (81-99); Mean Platelet Vol. 10.8 fl (6.2-12.0); Monocyte# 0.84 X10^3/uL; Monocyte% 9.8 % (0-10); Neutrophil # 6.91 X10^3/uL (2.7-7.7); POSITIVE COUNT NO; POSITIVE DIFFERENTIAL NO; POSITIVE MORPHOLOGY NO; Platelet Count 103 K/mm3 (150-450); RBC Distribution Width CV 14.1 % (11.6-14.6); White Blood Count 8.5 K/mm3 (4.4-11.0)
[2017-12-21 13:26] LABS: ALB/GLOB Ratio 0.5 RATIO (0.9-2.4); AST(SGOT) 50 U/L (15-37); Alanine Aminotransfer ALT/SGPT 33 U/L (13-56); Albumin, Serum 2.6 g/dL (3.2-5.0); Alkaline Phosphatase 200 U/L (45-117); Anion Gap 8 (5-15); BUN 34 mg/dL (7-18); BUN/Creat Ratio 29.6 RATIO (10-20); Calcium,Total 9.4 mg/dL (8.5-10.1); Chloride 104 mmol/L (98-107); Creatinine, Serum 1.15 mg/dL (0.55-1.02); EST Glomerular Filtration Rate 51 mL/min (>60); Est Glom Filt Rate - Afr Amer 62 mL/min (>60); Estimated Creatinine Clearance 39.26 ml/min; Globulin 5.4 g/dL (2.2-4.2); Glucose 219 mg/dL (74-106); Potassium 4.2 mmol/L (3.5-5.1); Sodium Level 135 mmol/L (136-145)
--- NOTE | 2017-12-21 14:55 | PCM.HP.STD ---
Problem List (1) Anemia Status: Chronic (2) Debility Status: Chronic (3) Depression Status: Chronic Qualifiers: (4) Diabetes mellitus Status: Chronic Qualifiers: Diabetes mellitus type: type 2 (5) Diabetic neuropathy Status: Chronic Qualifiers: (6) Hyperlipidemia Status: Chronic (7) Hypertension Status: Chronic Qualifiers: (8) Incontinence of urine Status: Chronic (9) Low back pain Status: Chronic Qualifiers: (10) Morbid obesity Status: Chronic (11) Normochromic normocytic anemia Status: Chronic (12) Osteoarthritis Status: Chronic (13) Panniculitis Status: Chronic (14) Pressure sore of left ischium, unstageable Status: Chronic Comment: anticipate Stage IV after excision (15) Right ischial pressure sore, stage 2 Status: Suspected Comment: may be higher stage after excision (16) Thrombocytopenia Status: Chronic (17) Type 2 diabetes mellitus Status: Chronic (18) Abdominal panniculus Status: Acute (19) Stage II decubitus ulcer Status: Acute Qualifiers: Pressure injury location: buttock Laterality: left Qualified Code(s): L89.322 - Pressure ulcer of left buttock, stage 2 (20) BMI 50.0-59.9, adult Status: Acute History of Present Illness Date of Admission: 12/21/17 Chief Complaint: Generalized weakness The patient is a 62 year old F with multiple comorbidities including diabetes mellitus type 2, history of multiple decubitus ulcers for which patient had a protracted stay in an LT[facility] and was discharged home 3 weeks prior to her admission. Patient presented to the emergency department complaining of progressive generalized weakness. She also reports fever and chills. She had noticed increasing pain involving the buttock. Patient was found to have a skin breakdown in the emergency department. Decision was made to admit patient to the hospital for subsequent evaluation. Past Medical History Past Medical History (Chronic Problems): Chronic Problems Debility (Chronic) Low back pain (Chronic) Diabetic neuropathy (Chronic) Anemia (Chronic) Panniculitis (Chronic) Diabetes mellitus (Chronic) Pressure sore of left ischium, unstageable (Chronic) anticipate Stage IV after excision Incontinence of urine (Chronic) Thrombocytopenia (Chronic) Normochromic normocytic anemia (Chronic) Acute panniculitis (Chronic) Hyperlipidemia (Chronic) Morbid obesity (Chronic) Osteoarthritis (Chronic) Depression (Chronic) Hypertension (Chronic) Type 2 diabetes mellitus (Chronic) Allergies amoxicillin Adverse Reaction (Verified 12/21/17 11:54) Other latex Adverse Reaction (Verified 12/21/17 11:54) Other Home Medications: Ambulatory Orders Medication Instructions Recorded Citalopram [Celexa] 20 mg PO DAILY 07/10/16 Metoprolol Tartrate [Lopressor 50 mg PO BREAKFAST 07/10/16 (beta tristen)] Metoprolol Tartrate [Lopressor 100 mg PO QHS 07/10/16 (beta tristen)] Gabapentin [Neurontin] 300 mg PO BID 07/22/17 Menthol/Lanolin/Calamine/Znox 1 applic TOPICAL BID 07/26/17 [Calmoseptine Ointment] Metformin HCl [Glucophage] 500 mg PO BIDCM 07/26/17 Nystatin Powder [Mycostatin Powder] 1 applic TOPICAL BID 07/26/17 Tizanidine HCl [Zanaflex] 4 mg PO Q6H PRN tablet 07/26/17 Acetaminophen [Tylenol Tablet] 1,000 mg PO Q8H PRN PRN 07/30/17 Bisacodyl [Laxative Suppository] 10 mg RC DAILY PRN PRN 07/30/17 Calamine/Phenol Liquid [Calamine 1 applic TP BID 07/30/17 Phenolated Lotion] Enoxaparin Sodium [Lovenox] 40 mg SQ DAILY 07/30/17 Polyethylene Glycol 3350 [Miralax] 17 gm PO DAILY 07/30/17 Senna/Docusate Sodium [Senokot-S] 2 tablet PO BID 07/30/17 Clindamycin [Cleocin IVPB] 600 mg IV Q8 bag 08/02/17 Glucagon 1 mg IM .X1 PRN syringe 08/02/17 Glucerna Shake 120 ml PO 4X/DAY liquid 08/02/17 Morphine Sulfate [Ms Contin] 60 mg PO BID #6 tablet.er 08/02/17 Famotidine 20 mg PO 12/21/17 Surgical History: cholecystectomy, - - Bilateral ischial wound debridement. 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 Dyspnea Respiratory: Denies: Cough, Shortness of breath at rest, Shortness of breath upon exertion, Sputum production Gastrointestinal: Denies: Abdominal Pain, Hematemesis, Hematochezia, Nausea, Melena, Vomiting Genitourinary: Reports: Incontinence Musculoskeletal: Reports: Back Pain, Joint stiffness Skin: Reports: Wounds Neurological: Denies: Focal weakness, Numbness, Tingling Psychiatric: Reports: Depression Hematologic/ Lymphatic: Denies: Easy Bruising, Easy Bleeding VTE Information - Inpt Only VTE Present on Admission: No VTE Mechan Device Prophylaxis: Knee High VALDO Hose VTE Pharm Prophylaxis ordered?: Yes Patient Problems: Active and Suspected Problems Abdominal panniculus (Acute) Stage II decubitus ulcer (Acute) BMI 50.0-59.9, adult (Acute) Objective: GENERAL: cooperative and in no apparent distress. HEENT: Clear conjunctiva, moist oral mucosa NECK; supple, normal thyroid, no distended JVD. CHEST: Diminished to auscultation bilaterally, HEART: Regular S1 S2, no audible murmurs ABDOMEN: soft, with a huge pannus in the lower abdomen RECTAL: deferred EXTREMITIES: No edema, no clubbing, no cyanosis. GLAZE MAKER: Awake; no lateralizing signs. SKIN: Stage II decubitus ulcer involving the left ischial - Physical Exam Vital Signs Temp Pulse Resp BP Pulse Ox 97.9 F 109 H 18 114/73 99 12/21/17 11:52 12/21/17 11:52 12/21/17 11:52 12/21/17 14:00 12/21/17 11:52 Weight: 128.1 kg Body Mass Index (BMI) 53.3 Finger Stick Blood Glucose 236 Laboratory Tests Past 24 Hrs 12/21/17 12/21/17 12:40 12:40 WBC 8.5 RBC 3.20 L Hgb 9.4 L Hct 28.5 L MCV 89.1 MCH 29.4 MCHC 33.0 RDW 14.1 RDW Differential 44.0 H Plt Count 103 L MPV 10.8 Immature Gran % (Auto) 0.100 Neut % (Auto) 81.0 H Lymph % (Auto) 8.6 L Garrett % (Auto) 9.8 Eos % (Auto) 0.4 Baso % (Auto) 0.1 Absolute Neuts (auto) 6.9 Absolute Lymphs (auto) 0.73 L Total Counted Not Reportable Sodium 135 L Potassium 4.2 Chloride 104 Carbon Dioxide 23.0 Anion Gap 8 BUN 34 H Creatinine 1.15 H Estim Creat Clear Calc 39.26 Est GFR (MDRD) Af Amer 62 Est GFR (MDRD) Non-Af 51 L BUN/Creatinine Ratio 29.6 H Glucose 219 H Calcium 9.4 Total Bilirubin 0.90 AST 50 H ALT 33 Alkaline Phosphatase 200 H Total Protein 8.0 Albumin 2.6 L Globulin 5.4 H Albumin/Globulin Ratio 0.5 L Assessment/Plan All Active Problems Abdominal panniculus (Acute) Stage II decubitus ulcer (Acute) BMI 50.0-59.9, adult (Acute) Skin necrosis (Resolved) Decubitus ulcer of left ischium, stage 4 (Resolved) Right ischial pressure sore, stage 3 (Resolved) Umbilical hernia (Resolved) ARF (acute renal failure) (Resolved) Hyperkalemia (Resolved) Hypoglycemia associated with type 2 diabetes mellitus (Resolved) Open wound of umbilical region (Resolved) Rhabdomyolysis (Resolved) Patient is a 62-year-old lady presents with progressive generalized weakness 1. Adult failure to thrive in a patient with multiple comorbidities patient has been admitted to regular nursing floor for subsequent evaluation. Requested for PT OT social media assistant to assist with discharge planning next 2. Stage II ischiatic decubitus ulcer; consult placed to wound care nurse 3. Diabetes mellitus type 2 with complications including diabetic polyneuropathy. Did continue patient home regimen in addition to Accu-Cheks before meals and at bedtime with sliding scale coverage 4. Hypertension-blood pressure controlled, home medications continued with dose adjustment as needed 5. Morbid obesity with BMI of 53.4 lifestyle modification including weight loss advised 6. Chronic back pain 7. DVT prophylaxis SC heparin Advance planning did have an extensive discussion with the patient regarding CODE STATUS she wishes to remain full code at this point time spent in discussion 60 minutes Code Visit OBSV E&M: 20662 Initial observation care L3 Procedures: 95735 Advncd Care Plan 30 Min
--- NOTE | 2017-12-21 15:10 | ED.VISSUMM ---
- ER Visit Summary Date of Service: 12/21/17 Chief Complaint: Weakness and bedsores History of Present Illness: The patient is a 62 F who states that she had a protracted stay at [facility] and was recently discharged 3 weeks ago. She states that she has become progressively weaker. She is confined to wheelchair at home. She states that she has bad knees makes it difficult to move around. Due to her morbid obesity and her large pannus which hangs down in between her legs she is virtually immobile. She had multiple decubiti ulcers on her buttocks which she states had good results with the wound VAC and the wound VAC was eventually discontinued at the [facility]. She states that because she is not moving she is constantly sitting on them has had progressive pain in her buttock is worried that the wounds are worsening. She states she cannot see them so she came to the emergency department. Patient is a very poor historian Physical Examination: Afebrile vital signs are stable Gen: Well-nourished well-developed orbitally obese Head: Normocephalic atraumatic Eyes: Perrl EOMI ENT: TMs clear no rhinorrhea moist mucous membranes Neck: Supple no lymphadenopathy no JVD nontender CVS: Regular rate rhythm no murmurs normal S1-S2 Respiratory: No distress clear to auscultation bilaterally chest nontender Abdomen: Soft nontender nondistended normal bowel sounds no masses very large pannus Back: Nontender there is decubiti that are opening on the buttock and large areas of chronic erythema I Extremity: Nontender no edema Skin: Normal color no rash Neuro: alert orientated ?3 CN II-XII intact normal strength sensation reflexes gait cerebellar Psych: Normal affect normal mood Test Results: CBC CMP were obtained. Emergency Department Course and Treatment: Patient most likely cannot continue to live on her own. She is tried for 3 weeks and is progressively declined. Her decubiti are worsening. Plan is admission. Impression: 1. Failure to thrive 2. Decubitus ulcer 3. Morbid obesity with chronic panniculitis This note was generated with [employer] dictation software. It may contain incorrect words, spelling, and punctuation that were not noted in review of the chart prior to signing ED Disposition - Plan for ED Patient: Chief Complaint: General Illness Referrals: Brittany Sorenson MD [Primary Care Provider] -
--- NOTE | 2017-12-21 15:13 | ED.DCSUM_ITS ---
- ER Visit Summary Date of Service: 12/21/17 Chief Complaint: Weakness and bedsores History of Present Illness: The patient is a 62 F who states that she had a protracted stay at [facility] and was recently discharged 3 weeks ago. She states that she has become progressively weaker. She is confined to wheelchair at home. She states that she has bad knees makes it difficult to move around. Due to her morbid obesity and her large pannus which hangs down in between her legs she is virtually immobile. She had multiple decubiti ulcers on her buttocks which she states had good results with the wound VAC and the wound VAC was eventually discontinued at the [facility]. She states that because she is not moving she is constantly sitting on them has had progressive pain in her buttock is worried that the wounds are worsening. She states she cannot see them so she came to the emergency department. Patient is a very poor historian Physical Examination: Afebrile vital signs are stable Gen: Well-nourished well-developed orbitally obese Head: Normocephalic atraumatic Eyes: Perrl EOMI ENT: TMs clear no rhinorrhea moist mucous membranes Neck: Supple no lymphadenopathy no JVD nontender CVS: Regular rate rhythm no murmurs normal S1-S2 Respiratory: No distress clear to auscultation bilaterally chest nontender Abdomen: Soft nontender nondistended normal bowel sounds no masses very large pannus Back: Nontender there is decubiti that are opening on the buttock and large areas of chronic erythema I Extremity: Nontender no edema Skin: Normal color no rash Neuro: alert orientated ?3 CN II-XII intact normal strength sensation reflexes gait cerebellar Psych: Normal affect normal mood Test Results: CBC CMP were obtained. Emergency Department Course and Treatment: Patient most likely cannot continue to live on her own. She is tried for 3 weeks and is progressively declined. Her decubiti are worsening. Plan is admission. Impression: 1. Failure to thrive 2. Decubitus ulcer 3. Morbid obesity with chronic panniculitis This note was generated with [email or web address] dictation software. It may contain incorrect words, spelling, and punctuation that were not noted in review of the chart prior to signing ED Disposition - Plan for ED Patient: Chief Complaint: General Illness Referrals: Brittany Sorenson MD [Primary Care Provider] -
[2017-12-21 16:25] LABS: Bedside Glucose 151 mg/dL (70-110)
--- NOTE | 2017-12-21 16:33 | NURSING ---
report called to Ever ANTONIO pt transferred to [id number] on telemonitor
--- NOTE | 2017-12-21 17:03 | NURSING ---
Pt to U 104 at [id number]
[2017-12-21] MEDS: dilTIAZem 25 MG/5 ML Vial 15 MG IV BOLUS (17:13)
[2017-12-21] MEDS: 0.9% Normal Saline 1,000 ML 75 ML IV (17:30)
[2017-12-21 18:03] LABS: D-Dimer Quantitative (DVT/PE) 0.84 FEU/ug/m (0.27-0.49)
[2017-12-21 18:06] LABS: Thyroid Stim Hormone (TSH) 0.93 uIU/mL (0.358-3.74)
--- NOTE | 2017-12-21 18:51 | NURSING ---
PTS HOME MEDICATION IS LOCKED IN MED ROOM. HAS PO MORPHINE LOCKED WELL. COUNTED AND 49 ARE PRESENT. VERIFIED WITH Brian TIERNEY AND Cami MORSE.
[2017-12-21 18:58] LABS: Mucous, Urine 0 SEEN /hpf (<or=2+); Red Blood Cells-Urine 0 SEEN /hpf (0-5); Squamous Epithelial Cells - UA 0 SEEN /hpf (5-10)
[2017-12-21 19:08] LABS: Color, Urine Yellow (Yellow); Glucose, Dipstick Normal (Normal); Ketone-Dipstick Negative (Negative); Leukocyte Esterase-Dipstick 100 /ul (Negative); Nitrite-Dipstick Positive (Negative); Occult Blood-Urine 10 /ul (Negative); Protein-Dipstick 30 mg/dl (Negative); Specific Gravity, Urine 1.015 (1.002-1.030); Urine Bilirubin Dipstick Negative (Negative); Urine Clarity Clear (Clear); Urine Urobilinogen Normal (Normal)
[2017-12-21 19:28] LABS: White Blood Cells 5-10 SEEN /hpf (0-5)
[2017-12-21 19:29] LABS: Bacteria 2+ /hpf (None Seen)
[2017-12-21] MEDS: 0.9% NaCl Peripheral Flush Adult/Peds IV (20:57)
[2017-12-21] MEDS: Heparin Injection (Vial) 5,000 UNIT/ML VIAL 5000 UNIT SC (21:02)
[2017-12-21] MEDS: Senna/Docusate Sodium 1 Tablet 2 TABLET PO (21:03)
[2017-12-21] MEDS: Metoprolol Tartrate 100 MG Tablet PO (21:03)
[2017-12-21] MEDS: Famotidine 20 MG Tablet PO (21:03)
[2017-12-21] MEDS: Gabapentin 300 MG Capsule PO (21:03)
[2017-12-21 21:30] LABS: Bedside Glucose 135 mg/dL (70-110)
[2017-12-22] VITALS (23 sets, daily range): BP systolic 85–114; BP diastolic 45–77; PULSE 66–113; RESP 16–22; TEMP 36.3–37.2; O2SAT 92–100
[2017-12-22] MEDS: 0.9% Normal Saline 1,000 ML 75 ML IV ×2 (05:21→18:04)
[2017-12-22] MEDS: Heparin Injection (Vial) 5,000 UNIT/ML VIAL 5000 UNIT SC (05:21)
[2017-12-22] MEDS: 0.9% NaCl Peripheral Flush Adult/Peds IV (05:23)
[2017-12-22 06:38] LABS: Anion Gap 6 (5-15); BUN 25 mg/dL (7-18); BUN/Creat Ratio 30.2 RATIO (10-20); Chloride 108 mmol/L (98-107); Creatinine, Serum 0.83 mg/dL (0.55-1.02); EST Glomerular Filtration Rate 75 mL/min (>60); Est Glom Filt Rate - Afr Amer 90 mL/min (>60); Estimated Creatinine Clearance 54.39 ml/min; Glucose 114 mg/dL (74-106); Potassium 3.8 mmol/L (3.5-5.1); Sodium Level 141 mmol/L (136-145)
[2017-12-22 07:00] LABS: Bedside Glucose 114 mg/dL (70-110)
[2017-12-22] MEDS: Gabapentin 300 MG Capsule PO ×2 (08:01→18:04)
[2017-12-22] MEDS: Metoprolol Tartrate 50 MG Tablet PO (08:01)
[2017-12-22] MEDS: Citalopram 20 MG Tablet PO (10:29)
[2017-12-22] MEDS: Senna/Docusate Sodium 1 Tablet 2 TABLET PO ×2 (10:29→23:15)
[2017-12-22] MEDS: Famotidine 20 MG Tablet PO (10:29)
--- NOTE | 2017-12-22 11:20 | PCM.PROGNOTE ---
<Lisa Conti - Last Filed: 12/22/17 11:41> Patient Problems: Active and Suspected Problems Abdominal panniculus (Acute) Stage II decubitus ulcer (Acute) BMI 50.0-59.9, adult (Acute) Subjective: Patient seen and examined. Resting comfortably in bed in no acute distress. Denies current complaints. - Physical Exam General: Alert, Oriented x3, Cooperative, No apparent distress HEENT: Atraumatic, PERRLA, EOMI, Normocephalic Neck: Supple, No JVD, Negative Carotid Bruits Lungs: Clear to auscultation, Diminished Cardiovascular: Regular rate, Regular Rhythm, Normal S1, Normal S2, No murmurs Abdomen: Bowel Sounds Present, Soft, Non Tender, Non-Distended, Obese Extremities: No clubbing, No cyanosis, No edema, Capillary Refill Less than 3 Seconds Skin: No rashes, - - Sacral decubitus ulcer, dressing intact. Musculoskeletal: No Tenderness to Palpation of Joints or Extremities Neurological: Cranial nerves II-XII grossly intact, Neuro grossly intact Psych/Mental Status: Flat Affect Vital Signs Temp Pulse Resp BP Pulse Ox 99 F 85 18 114/77 97 12/22/17 10:45 12/22/17 10:45 12/22/17 10:45 12/22/17 10:45 12/22/17 10:45 Oxygen Delivery Method Room Air Weight: 273 lb 11.192 oz Body Mass Index (BMI) 51.7 Intake and Output for Last 24 Hours 12/20/17 12/21/17 12/22/17 23:59 23:59 23:59 Intake Total 1169 / 1169 Output Total 150 / 150 650 / 650 Balance -150 / -150 519 / 519 Microbiology Past 72 Hours 12/21/17 18:50 Urine Culture - Preliminary Urine Catheter - Catheter Gram negative virginie Laboratory Tests Past 24 Hrs 12/21/17 12/21/17 12/21/17 17:15 17:15 18:30 D-Dimer Quant (PE/DVT) 0.84 H* Sodium Potassium Chloride Carbon Dioxide Anion Gap BUN Creatinine Estim Creat Clear Calc Est GFR (MDRD) Af Amer Est GFR (MDRD) Non-Af BUN/Creatinine Ratio Glucose Calcium Troponin I < 0.015 < 0.015 TSH 0.93 Urine Color Urine Clarity Urine pH Ur Specific [place] Urine Protein Urine Glucose (UA) Urine Ketones Urine Occult Blood Urine Nitrite Urine Bilirubin Urine Urobilinogen Ur Leukocyte Esterase Urine RBC Urine WBC Ur Squamous Epith Cells Urine Bacteria Urine Mucus 12/21/17 12/21/17 12/22/17 18:50 22:10 05:10 D-Dimer Quant (PE/DVT) Sodium 141 Potassium 3.8 Chloride 108 H Carbon Dioxide 27.0 Anion Gap 6 BUN 25 H Creatinine 0.83 Estim Creat Clear Calc 54.39 Est GFR (MDRD) Af Amer 90 Est GFR (MDRD) Non-Af 75 BUN/Creatinine Ratio 30.2 H Glucose 114 H Calcium 9.0 Troponin I 0.017 TSH Urine Color Yellow Urine Clarity Clear Urine pH 6.0 Ur Specific [place] 1.015 Urine Protein 30 H Urine Glucose (UA) Normal Urine Ketones Negative Urine Occult Blood 10 H Urine Nitrite Positive H Urine Bilirubin Negative Urine Urobilinogen Normal Ur Leukocyte Esterase 100 H Urine RBC 0 SEEN Urine WBC 5-10 SEEN Ur Squamous Epith Cells 0 SEEN Urine Bacteria 2+ Urine Mucus 0 SEEN POC Glucose 12/22/17 12/21/17 12/21/17 06:54 20:59 16:20 POC Glucose 114 H 135 H 151 H Medical Necessity - Tobacco Use Smoking Status: Never smoker Assessment/Plan All Active Problems Abdominal panniculus (Acute) Stage II decubitus ulcer (Acute) BMI 50.0-59.9, adult (Acute) Skin necrosis (Resolved) Decubitus ulcer of left ischium, stage 4 (Resolved) Right ischial pressure sore, stage 3 (Resolved) Umbilical hernia (Resolved) ARF (acute renal failure) (Resolved) Hyperkalemia (Resolved) Hypoglycemia associated with type 2 diabetes mellitus (Resolved) Open wound of umbilical region (Resolved) Rhabdomyolysis (Resolved) 1. New onset atrial fibrillation-rate controlled. Continue home metoprolol regimen. [id number] score 3, mod-high risk for CVA event. Begin eliquis 5mg BID. Echocardiogram ordered and pending. Troponin negative. TSH within normal limits. D-dimer elevated. CT of chest without evidence of pulmonary embolism. Consult cardiology given new onset AF. 2. Physical debility, weakness, failure to thrive- PT/OT. Case management consulted for discharge planning. 3. Acute gram-negative cystitis-UA positive. Urine culture shows gram-negative virginie, pulmonary. Begin IV Rocephin. 4. Stage II ischial decubitus ulcer, present on admission-history of excision and debridement of wound in July by Dr. Valle. Frequent position changes. Consult wound RN. Mepilex dressing. 5. Type 2 diabetes mellitus with associated diabetic [id number] before meals at bedtime with sliding scale insulin. 6. Hypertension-stable, continue current regimen. 7. Chronic back pain-PRN pain regimen, continue home Zanaflex regimen. 8. Depression-continue home citalopram regimen. 9. Morbid obesity-encourage diet and lifestyle modifications. Nutrition consult. 10. GERD-continue home famotidine regimen. DVT prophylaxis-heparin subcu. This patient was seen by LEW Piña under the supervision of Dr. Joseph. <Karan Joseph - Last Filed: 12/22/17 11:49> - Physical Exam Vital Signs Temp Pulse Resp BP Pulse Ox 99 F 85 18 114/77 97 12/22/17 10:45 12/22/17 10:45 12/22/17 10:45 12/22/17 10:45 12/22/17 10:45 Oxygen Delivery Method Room Air Weight: 124.148 kg Body Mass Index (BMI) 51.7 Intake and Output for Last 24 Hours 12/20/17 12/21/17 12/22/17 23:59 23:59 23:59 Intake Total 1169 / 1169 Output Total 150 / 150 650 / 650 Balance -150 / -150 519 / 519 Microbiology Past 72 Hours 12/21/17 18:50 Urine Culture - Preliminary Urine Catheter - Catheter Gram negative virginie Laboratory Tests Past 24 Hrs 12/21/17 12/21/17 12/21/17 17:15 17:15 18:30 D-Dimer Quant (PE/DVT) 0.84 H* Sodium Potassium Chloride Carbon Dioxide Anion Gap BUN Creatinine Estim Creat Clear Calc Est GFR (MDRD) Af Amer Est GFR (MDRD) Non-Af BUN/Creatinine Ratio Glucose Calcium Troponin I < 0.015 < 0.015 TSH 0.93 Urine Color Urine Clarity Urine pH Ur Specific [place] Urine Protein Urine Glucose (UA) Urine Ketones Urine Occult Blood Urine Nitrite Urine Bilirubin Urine Urobilinogen Ur Leukocyte Esterase Urine RBC Urine WBC Ur Squamous Epith Cells Urine Bacteria Urine Mucus 12/21/17 12/21/17 12/22/17 18:50 22:10 05:10 D-Dimer Quant (PE/DVT) Sodium 141 Potassium 3.8 Chloride 108 H Carbon Dioxide 27.0 Anion Gap 6 BUN 25 H Creatinine 0.83 Estim Creat Clear Calc 54.39 Est GFR (MDRD) Af Amer 90 Est GFR (MDRD) Non-Af 75 BUN/Creatinine Ratio 30.2 H Glucose 114 H Calcium 9.0 Troponin I 0.017 TSH Urine Color Yellow Urine Clarity Clear Urine pH 6.0 Ur Specific [place] 1.015 Urine Protein 30 H Urine Glucose (UA) Normal Urine Ketones Negative Urine Occult Blood 10 H Urine Nitrite Positive H Urine Bilirubin Negative Urine Urobilinogen Normal Ur Leukocyte Esterase 100 H Urine RBC 0 SEEN Urine WBC 5-10 SEEN Ur Squamous Epith Cells 0 SEEN Urine Bacteria 2+ Urine Mucus 0 SEEN POC Glucose 12/22/17 12/21/17 12/21/17 06:54 20:59 16:20 POC Glucose 114 H 135 H 151 H Assessment/Plan This patient was seen in conjunction with LEW Piña. I have independently interviewed and examined the patient and reviewed pertinent historical, laboratory, and other data. Please refer to Lisa Conti NP-Sosa note for details of this patient's presentation, findings, and recommendations. I have reviewed LEW Piña note and concur with documented findings. In brief,Patient is a 62-year-old lady with multiple comorbidities admitted with progressive generalized weakness. Patient went into new onset A. fib with RVR transferred from regular nursing floor to PCU where she was started on Cardizem. Physical Examination: GENERAL: cooperative HEENT: Clear conjunctiva, NECK; supple, normal thyroid, CHEST: Diminished to auscultation bilaterally, HEART: Irregular S1 S2, ABDOMEN: soft, with a huge pannus in the lower abdomen RECTAL: deferred EXTREMITIES: No edema, no clubbing, no cyanosis. LEATHER REPAIRER: Awake; no lateralizing signs. SKIN: Stage II decubitus ulcer involving the left ischial Assessment: Patient is a 62-year-old lady presents with progressive generalized weakness 1. Adult failure to thrive in a patient with multiple comorbidities 2. New onset A. fib with RVR 3. Acute cystitis 4. Stage II ischiatic decubitus ulcer; consult placed to wound care nurse 5. Diabetes mellitus type 2 with complications including diabetic polyneuropathy. 6. Hypertension-blood pressure controlled, home medications continued with dose adjustment as needed 7. Morbid obesity with BMI of 53.4 lifestyle modification including weight loss advised 8. Chronic back pain 9. DVT prophylaxis SC heparin Recommendations: 1. I have discussed the results of my overview and impressions with the patient 2. Options for management were reviewed Code Visit Inpatient E&M: 45887 Subs Hosp L3
[2017-12-22] MEDS: Insulin Lispro 100 UNIT/ML INSULN.PEN SQ ×2 (12:34→23:14)
[2017-12-22] MEDS: Ceftriaxone 1 GM/50 ML BAG IV (12:34)
[2017-12-22 12:35] LABS: Bedside Glucose 166 mg/dL (70-110)
--- NOTE | 2017-12-22 13:16 | PCM.CONS.C ---
Reason for Consult Date of Consultation: 12/22/17 Reason for Consultation: Irregular heart beat History of Present Illness: The patient is a 62 F who states that she had a protracted stay at [facility] and was recently discharged 3 weeks ago. She states that she has become progressively weaker. She is confined to wheelchair at home. She states that she has bad knees makes it difficult to move around. Due to her morbid obesity and her large pannus which hangs down in between her legs she is virtually immobile. She had multiple decubiti ulcers on her buttocks which she states had good results with the wound VAC and the wound VAC was eventually discontinued at the [facility]. Sent her to the hospital and she was admitted to the third floor and was noted to have a fast heartbeat and EKG was done which demonstrated atrial for ablation with rapid ventricular response rate. This is complete unbeknownst to her she denies any chest pain or shortness breath or paroxysmal nocturnal dyspnea or pedal edema. Past Medical History Allergies/Adverse Reactions: Allergies amoxicillin Adverse Reaction (Verified 12/21/17 11:54) Other latex Adverse Reaction (Verified 12/21/17 11:54) Other Home Medications: Ambulatory Orders Medication Instructions Recorded Citalopram [Celexa] 20 mg PO DAILY 07/10/16 Metoprolol Tartrate [Lopressor 50 mg PO BREAKFAST 07/10/16 (beta tristen)] Metoprolol Tartrate [Lopressor 100 mg PO QHS 07/10/16 (beta tristen)] Gabapentin [Neurontin] 300 mg PO BID 07/22/17 Nystatin Powder [Mycostatin Powder] 1 applic TOPICAL QHS 07/26/17 Bisacodyl [Laxative Suppository] 10 mg RC DAILY PRN PRN 07/30/17 Polyethylene Glycol 3350 [Miralax] 17 gm PO DAILY PRN 07/30/17 Morphine Sulfate [Ms Contin] 60 mg PO BID #6 tablet.er 08/02/17 Famotidine 20 mg PO DAILY 12/21/17 Tizanidine HCl [Zanaflex] 2 - 4 mg PO Q6H PRN 12/21/17 Past Medical History (Chronic Problems): Chronic Problems Debility (Chronic) Low back pain (Chronic) Diabetic neuropathy (Chronic) Anemia (Chronic) Panniculitis (Chronic) Diabetes mellitus (Chronic) Pressure sore of left ischium, 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 History: No pertinent PROGRAM ELIGIBILITY SPECIALIST history - *Family History Paternal History Items: Diabetes Maternal History Items: No pertinent history Smoking Status: Never smoker Alcohol: None Drugs: None Review of Systems - Review of Systems General: Denies: Fever, Night Sweats, Fatigue Cardiovascular: Denies: Chest Discomfort, Shortness of Breath, Orthopnea, PND, Peripheral Edema, Palpitations, Lightheadedness, Dizziness, Near Syncope, Syncope Respiratory: Denies: Cough, Sputum Production, Hemoptysis Gastrointestinal: Denies: Hematemesis, Hematochezia, Melena Genitourinary: Denies: Dysuria, Hematuria Skin: Denies: Rash Subjectve: Pleasant lady in no apparent distress Objective: Vital Signs Temp Pulse Resp BP Pulse Ox 99 F 72 18 114/77 97 12/22/17 10:45 12/22/17 11:09 12/22/17 10:45 12/22/17 10:45 12/22/17 10:45 Oxygen Delivery Method Room Air Weight: 273 lb 11.192 oz Body Mass Index (BMI) 51.7 Intake and Output for Last 24 Hours 12/20/17 12/21/17 12/22/17 23:59 23:59 23:59 Intake Total 1979 Output Total 150 / 150 1050 / 1050 Balance -150 / -150 930 / 930 General: Awake, Alert, Oriented x 3 HEENT: PERRL, EOMI, Sclera Non Icteric Neck: Supple, Good ROM, No Lymph Node Enlargement Lungs: Clear to auscultation Cardiovascular: Irregular Rhythm, Normal S1, Normal S2, No Murmurs, No Rubs, No Gallops Vascular: No Carotid Bruits, Normal Femoral Pulses, Normal Radial Pulses, Normal Dorsalis Pedal Pulse, Normal Posterior Tibial Pulses Abdomen: Bowel Sounds Present, Soft, Non Tender, No HSM, No Organomegaly Extremities: No Cyanosis, No Clubbing, No edema Neurological: No Focal Motor or Sensory Deficit 12/21/17 17:15: Troponin I < 0.015 12/21/17 17:15: D-Dimer Quant (PE/DVT) 0.84 H* 12/21/17 18:30: Troponin I < 0.015 12/21/17 18:50: Urine Color Yellow, Urine Clarity Clear, Urine pH 6.0, Ur Specific [place] 1.015, Urine Protein 30 H, Urine Glucose (UA) Normal, Urine Ketones Negative, Urine Occult Blood 10 H, Urine Nitrite Positive H, Urine Bilirubin Negative, Urine Urobilinogen Normal, Ur Leukocyte Esterase 100 H, Urine RBC 0 SEEN, Urine WBC 5-10 SEEN 12/21/17 22:10: Troponin I 0.017 12/22/17 05:10: Sodium 141, Potassium 3.8, Chloride 108 H, Carbon Dioxide 27.0, Anion Gap 6, BUN 25 H, Creatinine 0.83, Est GFR (MDRD) Af Amer 90, Est GFR (MDRD) Non-Af 75, BUN/Creatinine Ratio 30.2 H, Glucose 114 H, Calcium 9.0 Rhythm: EKG: ECHO: Stress Test: Cardiac Cath: PCI: CT Surgery: Holter monitor: EPS: PPM: CXR: Chest CT Scan: Assessment/Plan 1. Atrial fibrillation with rapid ventricular response rate The duration of the above is unclear at this particular time. However my recommendation would be that we control her heart rate and should be anticoagulated since she has a chads vas score of 2. An echocardiogram should be performed to assess her left ventricular function. At this time however I do not think that there are any plans to convert her to sinus rhythm. We will continue to observe how she does. Will increase the beta-tristen to Lopressor 100 mg twice a day. Thank you for allowing me to participate in the care of your patient. Please don't hesitate to call if any issues arise
[2017-12-22] MEDS: Nystatin Powder 15gm Bottle 1 APPLIC TOPICAL ×2 (15:20→23:15)
[2017-12-22 16:36] LABS: Bedside Glucose 138 mg/dL (70-110)
[2017-12-22] MEDS: Glucerna Shake 120 ML LIQUID PO (18:03)
[2017-12-22] MEDS: Metoprolol Tartrate 100 MG Tablet PO (23:14)
[2017-12-22] MEDS: APIXABAN 5 MG TABLET PO (23:14)
[2017-12-22 23:30] LABS: Bedside Glucose 189 mg/dL (70-110)
[2017-12-23] VITALS (13 sets, daily range): BP systolic 105–131; BP diastolic 53–70; PULSE 67–135; RESP 16–18; TEMP 36.6–37.2; O2SAT 94–99
[2017-12-23] MEDS: Nystatin Powder 15gm Bottle 1 APPLIC TOPICAL ×3 (04:41→22:03)
[2017-12-23] MEDS: 0.9% Normal Saline 1,000 ML 75 ML IV ×2 (04:41→17:51)
[2017-12-23 06:51] LABS: Bedside Glucose 154 mg/dL (70-110)
--- NOTE | 2017-12-23 09:53 | NURSING ---
wound photo: left buttock
--- NOTE | 2017-12-23 09:54 | NURSING ---
wound photo: pannus (distal)
--- NOTE | 2017-12-23 09:54 | NURSING ---
wound photo: pannus (posterior)
[2017-12-23] MEDS: Gabapentin 300 MG Capsule PO ×2 (10:31→17:50)
[2017-12-23] MEDS: Citalopram 20 MG Tablet PO (10:31)
[2017-12-23] MEDS: APIXABAN 5 MG TABLET PO ×2 (10:31→22:02)
[2017-12-23] MEDS: Metoprolol Tartrate 100 MG Tablet PO ×2 (10:33→19:49)
[2017-12-23] MEDS: Senna/Docusate Sodium 1 Tablet 2 TABLET PO ×2 (10:33→22:03)
[2017-12-23] MEDS: Famotidine 20 MG Tablet PO (10:33)
[2017-12-23] MEDS: Ceftriaxone 1 GM/50 ML BAG IV (10:37)
--- NOTE | 2017-12-23 10:59 | CASEMGMT ---
KINJAL spoke with patient about placement. She said she wants to go home. She was in an [facility] for awhile and [facility] She has only been home for a few weeks. She said she has done everything they told her to do and she thinks things have been going well. She is open to home health at d/c. She said they are adding another floor of assisted living where she lives and she is hoping to get on that floor. She does not qualify for Medicaid. However, while she was at [facility] she was getting intermediate Medicaid. KINJAL told her we can work on setting up home health, but if she changes her mind about SNF to let someone know. KINJAL will work on setting up home health Kassy ZAMORANO MSW
--- NOTE | 2017-12-23 11:13 | CASEMGMT ---
KINJAL called Hellen with [facility] and left a voice mail with referral. Plan: At this time plan is for patient to go home with home health. Kassy ZAMORANO MSW
--- NOTE | 2017-12-23 11:27 | PCM.PN.CARD ---
Subjectve: Patient seen and evaluated Objective: Vital Signs Temp Pulse Resp BP Pulse Ox 98.4 F 104 H 16 131/63 H 99 12/23/17 10:30 12/23/17 11:00 12/23/17 10:30 12/23/17 10:30 12/23/17 10:30 Oxygen Delivery Method Room Air Intake and Output for Last 24 Hours 12/21/17 12/22/17 12/23/17 23:59 23:59 23:59 Intake Total 1524 / 3504 487 / 487 Output Total 550 / 1600 400 / 400 Balance 974 / 1904 87 / 87 General: Awake, Alert, Oriented x 3 HEENT: PERRL, EOMI, Sclera Non Icteric Neck: Supple, Good ROM, No Lymph Node Enlargement Lungs: Clear to auscultation Cardiovascular: Irregular Rhythm, Normal S1, Normal S2, No Murmurs, No Rubs, No Gallops Vascular: No Carotid Bruits, Normal Femoral Pulses, Normal Radial Pulses, Normal Dorsalis Pedal Pulse, Normal Posterior Tibial Pulses Abdomen: Bowel Sounds Present, Soft, Non Tender, No HSM, No Organomegaly Extremities: No Cyanosis, No Clubbing, No edema Neurological: No Focal Motor or Sensory Deficit Rhythm: EKG: ECHO: Stress Test: Cardiac Cath: PCI: CT Surgery: Holter monitor: EPS: PPM: CXR: Chest CT Scan: Medical Necessity - Tobacco Use Smoking Status: Never smoker Assessment/Plan 1. Atrial fibrillation with rapid ventricular response rate The duration of the above is unclear at this particular time. However my recommendation would be that we control her heart rate and should be anticoagulated since she has a chads vas score of 2. The echocardiogram performed today demonstrated preserved left ventricular systolic function with biatrial enlargement. At this time however I do not think that there are any plans to convert her to sinus rhythm. We will continue to observe how she does. Will increase the beta-tristen to Lopressor 100 mg twice a day. Continue anticoagulation. Thank you for allowing me to participate in the care of your patient. Please don't hesitate to call if any issues arise
[2017-12-23 11:50] LABS: Bedside Glucose 158 mg/dL (70-110)
--- NOTE | 2017-12-23 12:33 | PCM.PROGNOTE ---
<Lisa Conti - Last Filed: 12/23/17 13:10> Patient Problems: Active and Suspected Problems Abdominal panniculus (Acute) Stage II decubitus ulcer (Acute) BMI 50.0-59.9, adult (Acute) Subjective: Patient seen and examined. Resting comfortably in bed no acute distress. Discussed with patient SNF at discharge. She is hesitant but agreeable. She states her apartment building is adding assisted living which is her long-term goal. Denies current complaints. - Physical Exam General: Alert, Oriented x3, Cooperative, No apparent distress HEENT: Atraumatic, PERRLA, EOMI, Normocephalic Neck: Supple, No JVD, Negative Carotid Bruits Lungs: Clear to auscultation, Diminished Cardiovascular: No murmurs, - - Atrial fibrillation, rate controlled. Abdomen: Bowel Sounds Present, Soft, Non Tender, Non-Distended, Obese, - - Very large pannus. Extremities: No clubbing, No cyanosis, No edema, Capillary Refill Less than 3 Seconds Skin: - - Sacral decubitus ulcer, dressing intact. Musculoskeletal: No Tenderness to Palpation of Joints or Extremities Neurological: Cranial nerves II-XII grossly intact, Neuro grossly intact Psych/Mental Status: Normal Affect, Appropriate Vital Signs Temp Pulse Resp BP Pulse Ox 98.4 F 104 H 16 131/63 H 99 12/23/17 10:30 12/23/17 11:00 12/23/17 10:30 12/23/17 10:30 12/23/17 10:30 Oxygen Delivery Method Room Air Intake and Output for Last 24 Hours 12/21/17 12/22/17 12/23/17 23:59 23:59 23:59 Intake Total 1524 / 3504 999 / 999 Output Total 550 / 1600 800 / 800 Balance 974 / 1904 199 / 199 POC Glucose 12/23/17 12/23/17 12/22/17 11:44 06:44 23:11 POC Glucose 158 H 154 H 189 H 12/22/17 16:27 POC Glucose 138 H Medical Necessity - Tobacco Use Smoking Status: Never smoker Assessment/Plan All Active Problems Abdominal panniculus (Acute) Stage II decubitus ulcer (Acute) BMI 50.0-59.9, adult (Acute) Skin necrosis (Resolved) Decubitus ulcer of left ischium, stage 4 (Resolved) Right ischial pressure sore, stage 3 (Resolved) Umbilical hernia (Resolved) ARF (acute renal failure) (Resolved) Hyperkalemia (Resolved) Hypoglycemia associated with type 2 diabetes mellitus (Resolved) Open wound of umbilical region (Resolved) Rhabdomyolysis (Resolved) 1. New onset atrial fibrillation-rate controlled. Cardiology following. Home metoprolol increased to 100 mg twice daily. Continue Eliquis 5 mg twice daily for [id number] score 3, mod-high risk for CVA event. Echocardiogram ordered and pending. Troponin negative. TSH within normal limits. D-dimer elevated. CT of chest without evidence of pulmonary embolism. 2. Physical debility, weakness, failure to thrive- PT/OT. Case management consulted for discharge planning. 3. Acute e.coli ESBL + cystitis-initially on IV Rocephin which has been discontinued. Fosfomycin 3 g p.o. ?1. 4. Stage II ischial decubitus ulcer, present on admission-history of excision and debridement of wound in July by Dr. Valle. Frequent position changes. Consult wound RN. Mepilex dressing. 5. Type 2 diabetes mellitus with associated diabetic [id number] before meals at bedtime with sliding scale insulin. 6. Hypertension-stable, continue current regimen. 7. Chronic back pain-PRN pain regimen, continue home Zanaflex regimen. 8. Depression-continue home citalopram regimen. 9. Morbid obesity-encourage diet and lifestyle modifications. Nutrition consult. 10. GERD-continue home famotidine regimen. DVT prophylaxis-heparin subcu. Discharge planning: SNF at discharge pending facility acceptance. This patient was seen by LEW Piña under the supervision of Dr. iKncaid. <Kd Kincaid F - Last Filed: 12/23/17 16:35> - Physical Exam Vital Signs Temp Pulse Resp BP Pulse Ox 98.4 F 104 H 16 131/63 H 99 12/23/17 10:30 12/23/17 11:00 12/23/17 10:30 12/23/17 10:30 12/23/17 10:30 Oxygen Flow Rate (L/min) 6 Oxygen Delivery Method Nasal Cannula Intake and Output for Last 24 Hours 12/21/17 12/22/17 12/23/17 23:59 23:59 23:59 Intake Total 1524 / 3504 999 / 999 Output Total 550 / 1600 800 / 800 Balance 974 / 1904 199 / 199 POC Glucose 12/23/17 12/23/17 12/23/17 16:27 11:44 06:44 POC Glucose 139 H 158 H 154 H 12/22/17 12/22/17 23:11 16:27 POC Glucose 189 H 138 H Assessment/Plan Addendum: Dr. Kincaid I personally examined the patient and reviewed the chart. I agree with the above. Given her weakness and her inability to complete her ADLs she will need to be placed in a SNF for rehab. Likely contributory is her UTI which should be well treated with the fosfomycin. Code Visit Inpatient E&M: 37355 Subs Hosp L2
[2017-12-23] MEDS: FOSFOMYCIN TROMETHAMINE 3 GM PACKET PO (13:20)
--- NOTE | 2017-12-23 13:48 | CASEMGMT ---
Patient's dressing changes will be at least twice daily. Home health cannot go out twice daily and patient said she does not have anyone that could be taught to do the dressing change. Physician spoke with her and she has now agreed to SNF. SW spoke with her and her sister and patient would like [facility], [facility], or [facility]. KINJAL told her SW will work on this and let her know. KINJAL called Antoinette at [facility] and left a voice mail with referral as well as faxed over referral. KINJAL also called [facility] with referral as well as faxed over information. Plan: SNF pending accepting facility. Kassy JACQUES
--- NOTE | 2017-12-23 14:11 | CASEMGMT ---
Addendum entered by Kassy Rae 12/23/17 14:28: SW spoke with [facility] registration and patient actually has [employer]. Kassy JACQUES Original Note: KINJAL called Cely at [facility] to see number of days patient has used under Medicare. Per Cely she has used all 100 of her Medicare days. Cely said she has Medicaid and when she looked her up in the system it said she has C[employer] now. Her Caresource ID is [id number]. Patient will have to go to SNF on her Caresource which means she will need insurance authorization before she can go. Kassy ZAMORANO MSW
[2017-12-23 16:31] LABS: Bedside Glucose 139 mg/dL (70-110)
[2017-12-23] MEDS: Polyethylene Glycol 3350 17 GM PACKET PO (19:49)
[2017-12-23] MEDS: Insulin Lispro 100 UNIT/ML INSULN.PEN SQ (22:02)
[2017-12-23 22:11] LABS: Bedside Glucose 173 mg/dL (70-110)
[2017-12-23] MEDS: Zolpidem Tartrate 5 MG Tablet PO (22:13)
[2017-12-23] MEDS: tiZANidine HCl 2 MG Tablet PO (22:13)
[2017-12-24 02:53] VITALS: BP 117/48; PULSE 78; RESP 16; TEMP 36.8; O2SAT 98
[2017-12-24 03:02] VITALS: PULSE 86
[2017-12-24] MEDS: Nystatin Powder 15gm Bottle 1 APPLIC TOPICAL ×2 (05:46→12:52)
[2017-12-24] MEDS: 0.9% Normal Saline 1,000 ML 75 ML IV (05:49)
[2017-12-24 06:25] LABS: Hematocrit 28.4 % (37-47); Hemoglobin 8.6 g/dl (12.0-15.0); Mean Corp Hgb Conc 30.3 g/gl (32-36); Mean Corpuscular Hgb 27.9 pg (27.0-32.0); Mean Corpuscular Volume 92.2 fL (81-99); Mean Platelet Vol. 10.3 fl (6.2-12.0); Platelet Count 103 K/mm3 (150-450); RBC Distribution Width CV 14.5 % (11.6-14.6); RBC Distribution Width SD 48.5 fl (35.1-43.9); Red Blood Count 3.08 M/mm3 (4.2-5.4); White Blood Count 4.1 K/mm3 (4.4-11.0)
[2017-12-24 06:35] LABS: Anion Gap 8 (5-15); BUN 15 mg/dL (7-18); BUN/Creat Ratio 19.8 RATIO (10-20); Calcium,Total 8.5 mg/dL (8.5-10.1); Chloride 111 mmol/L (98-107); Creatinine, Serum 0.76 mg/dL (0.55-1.02); EST Glomerular Filtration Rate 83 mL/min (>60); Est Glom Filt Rate - Afr Amer 100 mL/min (>60); Glucose 123 mg/dL (74-106); Potassium 3.8 mmol/L (3.5-5.1); Sodium Level 145 mmol/L (136-145)
[2017-12-24 06:36] LABS: Scan Indicated on CBC? Y/N NO
[2017-12-24 06:55] LABS: Bedside Glucose 108 mg/dL (70-110)
[2017-12-24 07:24] VITALS: PULSE 89
[2017-12-24 08:53] VITALS: BP 127/59; PULSE 97; RESP 18; TEMP 37.1; O2SAT 95
--- NOTE | 2017-12-24 08:55 | CASEMGMT ---
Addendum entered by Kassy Rae 12/24/17 09:39: SW spoke with patient and let her know that [facility] is full and [facility] will take her pending pre-cert. Kassy JACQUES Original Note: KINJAL spoke with Brenda at [facility] yesterday and they can accept patient. KINJAL had a voice mail this am from Atnoinette at [facility] and they have no female beds. KINJAL left Brenda at [facility] a voice mail asking her to please start pre-cert for patient. SW to let patient know plan. Plan: [facility] pending pre-cert Kassy JACQUES
[2017-12-24] MEDS: Gabapentin 300 MG Capsule PO (09:00)
[2017-12-24] MEDS: Citalopram 20 MG Tablet PO (09:00)
[2017-12-24 09:01] VITALS: PULSE 93
[2017-12-24] MEDS: Metoprolol Tartrate 100 MG Tablet PO (09:01)
[2017-12-24] MEDS: APIXABAN 5 MG TABLET PO (09:01)
[2017-12-24] MEDS: Senna/Docusate Sodium 1 Tablet 2 TABLET PO (09:02)
[2017-12-24] MEDS: Famotidine 20 MG Tablet PO (09:02)
--- NOTE | 2017-12-24 10:41 | CASEMGMT ---
KINJAL spoke with Brenda at [facility] and she will start the pre-cert. KINJAL completed convalescent on HENS and faxed over wound RN notes as well as wound care orders. Plan: [facility] pending insurance approval Kassy JACQUES
[2017-12-24 11:01] VITALS: PULSE 112
[2017-12-24] MEDS: Insulin Lispro 100 UNIT/ML INSULN.PEN SQ (11:36)
[2017-12-24 11:41] LABS: Bedside Glucose 152 mg/dL (70-110)
--- NOTE | 2017-12-24 11:58 | PCM.EXTCARCO ---
- Routine Orders/Code Status Enema Type: Fleetz Enema Frequency: Daily PRN Suppository Type: Dulcolax 10mg Suppository Frequency: Daily PRN O2 Liters per Minute: 2-4 O2 Frequency: PRN Keep PO Greater than or Equal to (%): 90 Routine Lab Work: CBC, BMP, - - Q Week Code Status: Full Code - Wound(s) buttocks Wound Type: Pressure Injury Under Pannus Wound Type: pressure vs. moisture related open areas Right Abdominal Fold Wound Type: moisture related open areas Dressing Change: pillow cases L Buttocks Wound Type: Pressure Injury Dressing Change: Wet to Dry Dressing R buttocks Wound Type: Pressure Injury - Suggestions for Active Care Change Position every (hours): 2 Times a day to sit in chair: 3 - Therapies Physical Therapy: Eval and Treat Occupational Therapy: Eval and Treat - Problem/Diagnosis (1) Abdominal panniculus Status: Chronic Current Visit: No (2) Stage II decubitus ulcer Status: Chronic Current Visit: No (3) BMI 50.0-59.9, adult Status: Chronic Current Visit: No (4) Skin necrosis Status: Resolved Comment: left ischial pressure sore Current Visit: No (5) Debility Status: Chronic Current Visit: No (6) Low back pain Status: Chronic Current Visit: No (7) Decubitus ulcer of left ischium, stage 4 Status: Resolved Current Visit: No (8) Right ischial pressure sore, stage 3 Status: Resolved Current Visit: No (9) Diabetic neuropathy Status: Chronic Current Visit: No (10) Anemia Status: Chronic Current Visit: No (11) Panniculitis Status: Chronic Current Visit: No (12) Diabetes mellitus Status: Chronic Current Visit: No (13) Right ischial pressure sore, stage 2 Status: Suspected Comment: may be higher stage after excision Current Visit: No (14) Pressure sore of left ischium, unstageable Status: Chronic Comment: anticipate Stage IV after excision Current Visit: No (15) Incontinence of urine Status: Chronic Current Visit: No (16) Thrombocytopenia Status: Chronic Current Visit: No (17) Normochromic normocytic anemia Status: Chronic Current Visit: No (18) Acute panniculitis Status: Chronic Current Visit: No (19) Hyperlipidemia Status: Chronic Current Visit: No (20) Umbilical hernia Status: Resolved Current Visit: No (21) Morbid obesity Status: Chronic Current Visit: No (22) Osteoarthritis Status: Chronic Current Visit: No (23) Depression Status: Chronic Current Visit: No (24) Hypertension Status: Chronic Current Visit: No (25) Type 2 diabetes mellitus Status: Chronic Current Visit: No (26) Atrial fibrillation Status: Acute Current Visit: Yes (27) Acute cystitis Status: Acute Comment: e.coli, +ESBL Current Visit: Yes - Allergies/Procedures Done in Hospital Allergies/Adverse Reactions: Allergies amoxicillin Adverse Reaction (Verified 12/21/17 11:54) Other latex Adverse Reaction (Verified 12/21/17 11:54) Other Procedures: 2-D Echocardiogram - Type of Care/Length of Stay Estimated LOS: Convalescent Care Less Than 30 days Type of Care Needed: Skilled Rehab Potential: Fair Prognosis: Fair - Additional Orders/Day of Discharge H&P will serve as current which was dated: 12/21/17 Day of Discharge: 12/24/17 - Dietary and Speech Recommendations Dietitian Recommendations/Changes: Rec diet change to 1800 calorie controlled, cardiac. Will d/c Glucerna w/ medpass as additional calories not warranted. Rec Bernard 1 packet BID for wound healing- must be ordered from pharmacy. Pt prefers unflavored or fruit punch flavor. - Follow Up Care Primary Care Physician: Brittany Sorenson MD [Primary Care Provider] - Please follow up with your Primary Care Physician in: 1 Week Please Follow Up With: Wound Center When: Call for appt within one week Please Follow Up With: Dariel Castro MD - May see [facility]ILITY LINEMAN/PA When: 2-4 Weeks
--- NOTE | 2017-12-24 12:10 | PCM.DC.SUM ---
<Lisa Conti - Last Filed: 12/24/17 12:23> Discharge Date and Diagnosis Date of Admission: 12/21/17 Date of Discharge: 12/24/17 - Primary Discharge Diagnosis Active and Suspected Problems 1. New onset atrial fibrillation 2. Acute E. coli, positive ESBL cystitis 3. Physical debility, weakness, failure to thrive 4. Stage II ischial decubitus ulcer, posterior/distal pannus wounds, present on admission - Secondary Discharge Diagnosis Chronic Problems Abdominal panniculus (Chronic) Stage II decubitus ulcer (Chronic) BMI 50.0-59.9, adult (Chronic) Debility (Chronic) Low back pain (Chronic) Diabetic neuropathy (Chronic) Anemia (Chronic) Panniculitis (Chronic) Diabetes mellitus (Chronic) Pressure sore of left ischium, unstageable (Chronic) anticipate Stage IV after excision Incontinence of urine (Chronic) Thrombocytopenia (Chronic) Normochromic normocytic anemia (Chronic) Acute panniculitis (Chronic) Hyperlipidemia (Chronic) Morbid obesity (Chronic) Osteoarthritis (Chronic) Depression (Chronic) Hypertension (Chronic) Type 2 diabetes mellitus (Chronic) Hospital Course and Treatment Imaging Results: Diagnostic Data Chest CTA 12/21/17 18:05 IMPRESSION: Negative CTA chest. No evidence of pulmonary embolus or aortic dissection. Electronically Signed: Yadira Colvin MD at 22:24 EDT Tel , Service support , Dr. Castro- Cardiology Operations: None Procedures: 2-D Echocardiogram Summary of Care Provided: The patient is a 62 year old F admitted 12/21/2017 due to generalized weakness. 1. New onset atrial fibrillation-rate controlled. Cardiology following. Home metoprolol increased to 100 mg twice daily. Continue Eliquis 5 mg twice daily for [id number] score 3, mod-high risk for CVA event. Echocardiogram demonstrated an EF of 60%, moderately enlarged left atrium, mildly enlarged right atrium. Troponin negative. TSH within normal limits. D-dimer elevated. CT of chest without evidence of pulmonary embolism. 2. Physical debility, weakness, failure to thrive-SNF at discharge for further PT/OT. 3. Acute e.coli ESBL + cystitis-initially on IV Rocephin which has been discontinued. Fosfomycin 3 g p.o. ?1. 4. Stage II ischial decubitus ulcer, posterior/distal pannus wounds, present on admission-history of excision and debridement of wound in July by Dr. Valle. Frequent position changes. Continue daily and as needed dressing changes. Follow-up with wound center. 5. Type 2 diabetes mellitus with associated diabetic [id number] before meals at bedtime with sliding scale insulin. Hemoglobin A1c 7% 06/01/2017. May consider oral regimen per PCP. 6. Hypertension-stable, continue current regimen. 7. Chronic back pain-PRN pain regimen, continue home Zanaflex regimen. 8. Depression-continue home citalopram regimen. 9. Morbid obesity-encourage diet and lifestyle modifications. 10. GERD-continue home famotidine regimen. General: Alert, Oriented x3, Cooperative, No apparent distress HEENT: Atraumatic, PERRLA, EOMI, Normocephalic Neck: Supple, No JVD, Negative Carotid Bruits Lungs: Clear to auscultation, Diminished Cardiovascular: No murmurs, - - Atrial fibrillation, rate controlled. Abdomen: Bowel Sounds Present, Soft, Non Tender, Non-Distended, Obese, - - Very large pannus. Extremities: No clubbing, No cyanosis, No edema, Capillary Refill Less than 3 Seconds Skin: - - Sacral decubitus ulcer, dressing intact. Musculoskeletal: No Tenderness to Palpation of Joints or Extremities Neurological: Cranial nerves II-XII grossly intact, Neuro grossly intact Psych/Mental Status: Normal Affect, Appropriate Patient seen exam prior to discharge. Physical assessment as noted above. Patient is stable for discharge to SNF for further therapy. This patient was seen by LEW Piña under the supervision of Dr. Kincaid. Home Medications: Medications to take at Discharge Citalopram [Celexa] 20 mg PO DAILY 07/10/16 Gabapentin [Neurontin] 300 mg PO BID 07/22/17 Nystatin Powder [Mycostatin Powder] 1 applic TOPICAL QHS 07/26/17 Bisacodyl [Laxative Suppository] 10 mg RC DAILY PRN PRN 07/30/17 Polyethylene Glycol 3350 [Miralax] 17 gm PO DAILY PRN 07/30/17 Morphine Sulfate [Ms Contin] 60 mg PO BID #6 tablet.er 08/02/17 Famotidine 20 mg PO DAILY 12/21/17 Tizanidine HCl [Zanaflex] 2 - 4 mg PO Q6H PRN 12/21/17 Apixaban [Eliquis] 5 mg PO BID tablet 12/24/17 Insulin Lispro [Humalog KwikPen] See Protocol SQ ACHS insuln.pen 12/24/17 Metoprolol Tartrate [Lopressor (beta tristen)] 100 mg PO BID tablet 12/24/17 Primary Care Physician: Brittany Sorenson MD [Primary Care Provider] - Please follow up with your Primary Care Physician in: 1 Week Please Follow Up With: Wound Center When: Call for appt within one week Please Follow Up With: Dariel Castro MD - May see MEDICAL OFFICE SECRETARY/PA When: 2-4 Weeks Disposition: Half-Way facility Minutes spent on discharge:: 35 Patient Condition:: Stable Medical Necessity - Tobacco Use Smoking Status: Never smoker Meaningful Use Info Meaningful Use Diagnoses (Choose all that apply): None applicable <Kd Kincaid - Last Filed: 12/24/17 13:24> Discharge Date and Diagnosis - Secondary Discharge Diagnosis Chronic Problems Abdominal panniculus (Chronic) Stage II decubitus ulcer (Chronic) BMI 50.0-59.9, adult (Chronic) Debility (Chronic) Low back pain (Chronic) Diabetic neuropathy (Chronic) Anemia (Chronic) Panniculitis (Chronic) Diabetes mellitus (Chronic) Pressure sore of left ischium, unstageable (Chronic) anticipate Stage IV after excision Incontinence of urine (Chronic) Thrombocytopenia (Chronic) Normochromic normocytic anemia (Chronic) Acute panniculitis (Chronic) Hyperlipidemia (Chronic) Morbid obesity (Chronic) Osteoarthritis (Chronic) Depression (Chronic) Hypertension (Chronic) Type 2 diabetes mellitus (Chronic) Hospital Course and Treatment Summary of Care Provided: Addendum: Dr. Kincaid I personally examined the patient and reviewed the chart. I agree with the above. Her debility is multi-factorial complicated by a UTI that was ESBL E. coli. This was successfully treated with a single 3 gram dose of fosfomycin. When SNF is complete she would like to return to her apartment building which is allowing home health aides to visit on the 5th and 6th floors only. Code Visit Inpatient E&M: 78214 Disch Hosp
--- NOTE | 2017-12-24 13:11 | CASEMGMT ---
Received insurance approval for patient to go to [facility]. Faxed orders to [facility]. Completed convalescent on HENS. Spoke with patient and she will have her sister bring in her wheelchair. KINJAL called [facility] and arranged for patient to get picked up at 4p via wc van with patient's wheelchair. KINJAL notified patient, RN, executive legal secretary, and left a message for Brenda at [facility]. Plan: d/c to [facility] under skilled level of care on a convalescent stay. [facility] transported via wc van and patient's wheelchair. Kassy ZAMORANO [employer]
== END 2017-12-24 16:18 | disposition skilled nursing facility (03) | DRG 690 ==
LOC: ED 13:16 → MS3 16:41 → PCU 18:47
PROVIDERS: Nurse Practitioner Family; Admitting Provider Internal Medicine; Emergency Provider Emergency Medicine; Family Provider Internal Medicine; PCP Internal Medicine; Visit Provider Family Medicine
DX: N30.00 Acute cystitis without hematuria (principal); Z68.43 Body mass index [BMI] 50.0-59.9, adult; I48.91 Unspecified atrial fibrillation; E11.42 Type 2 diabetes mellitus with diabetic polyneuropathy; F32.9 Major depressive disorder, single episode, unspecified; E66.01 Morbid (severe) obesity due to excess calories; Z71.3 Dietary counseling and surveillance; K21.9 Gastro-esophageal reflux disease without esophagitis; G89.29 Other chronic pain; M54.5 Low back pain; R62.7 Adult failure to thrive; Z16.12 Extended spectrum beta lactamase (ESBL) resistance; L89.222 Pressure ulcer of left hip, stage 2; E78.5 Hyperlipidemia, unspecified; M79.3 Panniculitis, unspecified; B96.20 Unspecified Escherichia coli [E. coli] as the cause of diseases classified elsewhere; D64.9 Anemia, unspecified; E11.622 Type 2 diabetes mellitus with other skin ulcer; M19.90 Unspecified osteoarthritis, unspecified site; I10 Essential (primary) hypertension
CPT/HCPCS: 36415; 71275; 80048; 80053; 81001; 82962; 84443; 84484; 85025; 85027; 85379; 87077; 87086; 87088; 87186; 93005; 93306; 97110; 97163; 97166; 97530; 97802; 99284; J7030; Q9957; Q9967; A4216; C8929

== ENCOUNTER → 2019-03-05 07:41 | Outpatient (CLI) | payer MEDICARE, SELFPAY ==
[2019-02-18 09:46] VITALS: BMI 51.7
--- NOTE | 2019-03-05 07:44 | CT_ITS ---
HISTORY: ABD WALL PAIN WITH PANNICULUS TECHNIQUE: Helically acquired images were obtained of the chest, abdomen, and pelvis following IV contrast. CTA protocol with 3D reformats were performed. A radiation dose optimization technique was used for this scan. IV Contrast dosage and agent: 100CC Isovue 300 IV/Oral Isovue 300 100CC Oral contrast: Yes COMPARISON: CTA chest from December 21, 2017. CT scan of the abdomen and pelvis from July 30, 2017. FINDINGS: ----Chest: LUNGS, PLEURA AND LARGE AIRWAYS: No masses, consolidation, or edema. No pleural effusion or thickening. No pneumothorax. THYROID: Within the lateral aspect of the right lobe of the thyroid gland there is a 8 mm hypodense lesion. This is different in appearance from the previous study. In the inferior portion of the right lobe of the thyroid gland there is a 4 mm lesion. This is similar in appearance to the previous study. The thyroid gland is not completely imaged HEART AND PERICARDIUM: The heart is enlarged. The left ventricle is dilated. Coronary artery calcific ASCVD persists VESSELS: Thoracic aorta is not dilated. No aortic dissection. No obvious central pulmonary embolism although this study was not performed with the contrast bolus equalized for the thoracic aorta and for the pulmonary arteries, decreasing the negative predictive value to exclude pulmonary embolism MEDIASTINUM AND: No mediastinal or hilar adenopathy. Esophagus is unremarkable. No hiatal hernia. BONES: No suspicious lytic or blastic abnormality. Multi enthesophytes with mild scoliosis ----Abdomen/Pelvis: LIVER: Homogeneous. No focal mass. GALLBLADDER AND BILIARY TREE: Has been resected the common bile duct within the pancreatic head measures 10 mm. There is minimal intrahepatic biliary ductal dilatation PANCREAS: Pancreas is atrophic and fattily infiltrated SPLEEN: Normal size without focal cystic or solid mass. ADRENAL GLANDS: No nodules. KIDNEYS AND URETERS: Are atrophic with lobulations and/or scarring PERITONEUM: No ascites or free air. No other fluid collection. BOWEL: Stool distends the sigmoid colon and rectum No stomach or bowel distension. No focal inflammatory change. There is some scarring in the anterior abdominal wall around the umbilicus LYMPH NODES: No enlarged mesenteric or retroperitoneal lymph nodes. VESSELS: Aorta is non-dilated. URINARY BLADDER: Is mildly decompressed REPRODUCTIVE ORGANS: the uterus remains. It is atrophic. The ovaries are not pathologically enlarged. The appendix is normal. Series 2 image 109 ABDOMINAL WALL: No discrete abdominal or pelvic wall hernia. BONES: Multilevel degenerative disc disease with facet arthropathy. Gentle levoscoliosis. Many bridging enthesophytes. Not all of the bones of the pelvis are imaged CT/Abdomen/Pelvis WITH Contrast IMPRESSION: Stool distends the sigmoid colon and rectum. No pulmonary embolism. Mild renal scarring. Mild biliary ductal dilatation is not uncommon postcholecystectomy. Cardiomegaly. No pulmonary embolism perceived, however, timing the contrast bolus was equal for the aorta and the pulmonary arteries. This decreases the negative predictive value of this study. 2 pericardiophrenic lymph nodes were similar the previous study and are likely benign. Some calcific tiny hypodense lesions within the thyroid gland are likely benign. Individualized dose optimization techniques were used for this CT. at 2232 Reported and signed by: Tashi Parson MD Electronically Signed: Tashi Parson MD at 22:38 EDT Tel , Service support ,
== END ==
LOC: CT 07:43
PROVIDERS: Family Provider Internal Medicine; PCP Internal Medicine; Referring Provider Surgery; Visit Provider Surgery
DX: E65 Localized adiposity (principal); M79.3 Panniculitis, unspecified; R60.0 Localized edema; L30.4 Erythema intertrigo; R10.31 Right lower quadrant pain; R10.32 Left lower quadrant pain; E11.9 Type 2 diabetes mellitus without complications; E66.01 Morbid (severe) obesity due to excess calories
CPT/HCPCS: 74177; Q9967

== ENCOUNTER 2019-05-08 10:23 | Inpatient (IN) | payer MEDICARE, MEDICAID, SELFPAY ==
[2019-02-18 09:46] VITALS: BMI 51.7
[2019-05-08] VITALS (18 sets, daily range): BP systolic 76–153; BP diastolic 40–84; PULSE 90–102; RESP 12–21; TEMP 36.3–36.7; O2SAT 95–100; BMI 58.4; BMI 55.2
--- NOTE | 2019-05-08 10:45 | EKG12_ITS ---
Test Reason : GEN ILL Blood Pressure : / mmHG Vent. Rate : 092 BPM Atrial Rate : 092 BPM P-R Int : 236 ms QRS Dur : 098 ms QT Int : 372 ms P-R-T Axes : 095 -38 047 degrees QTc Int : 460 ms Sinus rhythm with 1st degree A-V block Left axis deviation Pulmonary disease pattern Abnormal ECG Confirmed by CIRILO FAGAN, DENISHA ([id number]), subeditor DEWEY SELLERS ([id number]) on 05/11/2019 12:48:53 PM Referred By: Carli Castro Confirmed By:DENISHA KERR MD
--- NOTE | 2019-05-08 10:50 | CT_ITS ---
STUDY: CT ABDOMEN AND PELVIS WITHOUT CONTRAST REASON FOR EXAM: Female, 64 years old. PT STATED REDNESS AND DRAINAGE OF PANNICULUS, CREAT CHANGE FROM 1.0 TO 5.21 IN APPROX 2 MONTHS TIME. RADIATION DOSAGE (If Supplied By Facility): CTDIvol = ( 30.74 ) mGy, DLP = ( 2711.57 ) mGycm TECHNIQUE: Transaxial images were obtained from the dome of the diaphragm to the symphysis pubis without oral contrast, and without intravenous contrast. Sagittal and coronal images were reconstructed. Individualized dose optimization techniques were used for this CT. COMPARISON: None. FINDINGS: Mild elevation of left diaphragm and minor related volume loss in the left lung base. The heart size is upper normal. There is minor thickening of the left posterior pericardium. Normal liver. The pleural vein diameter is 11 mm. There are surgical clips in the gallbladder fossa consistent with a prior cholecystectomy. The diameter of the common bile duct to 7 mm. There is borderline splenomegaly, measuring 14.4 x 10.1 x 6 cm. There is diffuse atrophy of the pancreas. Normal bilateral adrenal glands. Normal right kidney. Focal hyperdensity that may be a nidus of parenchymal calcification seen at the margin of focal cortical thinning in the anterior mid to lower pole of the left kidney. No hydronephrosis. Normal visualized stomach. Normal small intestine. Normal colon. The appendix is visualized and appears normal. Normal abdominal aorta. There are intimal atherosclerotic calcifications of the external iliac and visualized femoral arteries Normal inferior vena cava. Stable, partially calcified 2.5 x 0.7 x 0.7 cm left periaortic lymph node. A 1.4 x 1.1 x 1.3 cm right common iliac node (series 2 image 119, series 601 image 64) also shows some moderate degree of calcification, and is mildly increased in size from prior study. There is a stable, partially calcified 1.6 x 0.75 x 0.6 cm proximal left internal iliac lymph node. There are a few nonspecific to mildly reactive lymph nodes at the left groin, the largest measuring 3.35 x 1.85 x 0.7 cm. Normal urinary bladder. There is atrophy of the uterus. There is extensive edematous or inflammatory stranding extending and infiltrating low anterior abdominal wall panniculus as well as the notably swollen mons pubis and external labia/perineum, greater on the right. This also extends into the subcutaneous tissues of the right thigh. There are diffuse degenerative changes of the visualized spine, including large bridging and near bridging lumbar endplate osteophytes. There is a 24 degree levoscoliosis centered at L4-5. Degenerative arthrosis is also noted in the bilateral sacroiliac joints, including some anterior osseous bridging on the left. There is degenerative lobulated ossification in the tissues on the posterolateral margin of the lower right ischium. CT/Abdomen/Pelvis without Cont IMPRESSION: 1. Findings consistent with cellulitis with inflammatory stranding infiltrating the low anterior abdominal wall panniculus as well as the notably swollen mons pubis and external labia/perineum, greater on the right. Additional edematous/inflammatory stranding also seen in the subcutaneous tissues of the visualized right thigh. 2. Atherosclerotic calcifications noted in the external iliac and visualized femoral arteries. The abdominal aorta is unremarkable. 3. Prior cholecystectomy. 4. Borderline thyromegaly. 5. Nidus of parenchymal calcification in the anterior mid to lower pole of left kidney adjacent to a site of cortical thinning. No hydronephrosis. 6. A few partially calcified retroperitoneal lymph nodes are again noted, a node along the right common iliac artery showing mild grossly previous study, still nonspecific in overall appearance. 7. Degenerative changes of the spine and bilateral sacroiliac joints. Electronically Signed: Jerel Mann MD at 12:34 EST , Service support ,
--- NOTE | 2019-05-08 10:51 | ED.VIS.GEN ---
History of Present Illness Chief Complaint: General Illness Informant: Patient Narrative: Patient presents via EMS. Patient is bound to a wheelchair in her home. She is a large pannus and is scheduled to have surgery on May [address] Valle. Patient states that she was in her kitchen, got a glass of water, and became very sleepy. She dropped a glass of water. She states that her pannus shifted, causing her to slide out of her wheelchair and onto the floor. She states this is the third time the last 2 weeks this has happened. On the 2 prior occasions EMS helped her back into her wheelchair and she did not seek medical attention. Patient states she has had some bleeding and drainage from her pannus over the past 3 weeks. She has not had a fever. She denies any injury from sliding out of her wheelchair today. - Past Medical History (1) Abdominal panniculus Status: Chronic (2) Essential (primary) hypertension Status: Chronic (3) Hyperlipidemia Status: Chronic (4) prison (current) use of anticoagulants Status: Chronic Comment: Eliquis for atrial fibrillation (5) Morbid obesity Status: Chronic (6) Paroxysmal atrial fibrillation Status: Chronic Past Medical History - Allergies and Home Meds Allergies/Adverse Reactions: Allergies amoxicillin Adverse Reaction (Verified 05/08/19 10:24) Other latex Adverse Reaction (Verified 05/08/19 10:24) Other Primary Care Physician: Brittany Sorenson MD [Primary Care Provider] - Doctors: Dr Valle Prior records reviewed: Yes Surgical History: cholecystectomy, - - Bilateral ischial wound debridement. Lives: Alone - Family History Paternal Family History: Family History (Last Reviewed 04/08/19 @ 08:50 by Emi Keene) Father Diabetes Mother Arthritis Hypertension Heart disease Sister Arthritis Diabetes Heart disease Hypertension High cholesterol Family History: Reports: Diabetes Maternal Family History: Family History (Last Reviewed 04/08/19 @ 08:50 by Emi Keene) Father Diabetes Mother Arthritis Hypertension Heart disease Sister Arthritis Diabetes Heart disease Hypertension High cholesterol Family History: Reports: No pertinent history Review of Systems General: Denies: Chills, Fever Eyes: Denies: Visual changes - bilaterally ENT: Denies: Bilateral ear pain Cardiovascular: Denies: Chest pain Respiratory: Denies: Dyspnea, Cough Gastrointestinal: Reports: Abdominal pain. Denies: Nausea, Vomiting, Diarrhea Genitourinary: Denies: Dysuria Neurological: Denies: Headache Hematologic: Denies: Easy bruising Allergy: Denies: Uticaria Physical Exam Vital Signs/Narrative: Vital Signs Temp Pulse Resp BP Pulse Ox 05/08/19 10:27 97.5 F L 100 18 98/84 H 95 Inital Vital Signs reviewed: Yes General: Well nourished, Well developed Head: Normocephalic ENT: Moist mucous membranes Neck: Supple Cardiovascular: Regular rate, Regular rhythm Respiratory: No distress, CTA bilaterally Abdomen: Soft, - - Patient has a large pannus that hangs down to the level of her knees. The lower area is very firm. She has some sores on the posterior side. There is mild bleeding. Neurological: Alert, Oriented x3 Psychological: Normal affect Diagnostic/Tx/Re-eval Impressions Abdomen/Pelvis CT 05/08/19 10:50 IMPRESSION: 1. Findings consistent with cellulitis with inflammatory stranding infiltrating the low anterior abdominal wall panniculus as well as the notably swollen mons pubis and external labia/perineum, greater on the right. Additional edematous/inflammatory stranding also seen in the subcutaneous tissues of the visualized right thigh. 2. Atherosclerotic calcifications noted in the external iliac and visualized femoral arteries. The abdominal aorta is unremarkable. 3. Prior cholecystectomy. 4. Borderline thyromegaly. 5. Nidus of parenchymal calcification in the anterior mid to lower pole of left kidney adjacent to a site of cortical thinning. No hydronephrosis. 6. A few partially calcified retroperitoneal lymph nodes are again noted, a node along the right common iliac artery showing mild grossly previous study, still nonspecific in overall appearance. 7. Degenerative changes of the spine and bilateral sacroiliac joints. Electronically Signed: Jerel Mann MD at 12:34 EST , Service support , 05/08/19 10:50 Abdomen/Pelvis without Cont [CT] Stat Laboratory Results 05/08/19 05/08/19 11:05 11:05 WBC 15.2 H RBC 3.91 L Hgb 11.0 L Hct 34.1 L MCV 87.2 MCH 28.1 MCHC 32.3 RDW Std Deviation 41.8 RDW Coeff of Radha 13.4 Plt Count 251 MPV 10.1 Immature Gran % (Auto) 0.700 Neut % (Auto) 88.8 H Lymph % (Auto) 3.8 L [place] % (Auto) 6.6 Eos % (Auto) 0.0 Baso % (Auto) 0.1 Absolute Neuts (auto) 13.5 H Absolute Lymphs (auto) 0.57 L Nucleated RBC % 0 Sodium 127 L Potassium 6.2 H* Chloride 95 L Carbon Dioxide 23.0 Anion Gap 9 BUN 87 H Creatinine 5.21 H Estim Creat Clear Calc 8.45 Est GFR (MDRD) Af Amer 11 L Est GFR (MDRD) Non-Af 9 L BUN/Creatinine Ratio 16.7 Glucose 216 H Calcium 9.5 - EKG Initial EKG Interpretation: Sinus Rhythm - Sinus at 92 with a first-degree AV block. No acute ST change. - Medical Decision Making Test results do reveal acute renal failure with a creatinine of 5.2. She had a fingerstick creatinine on March 05, 2019 that was 1.0. Patient does have elevated potassium at 6.2. No significant arrhythmias noted. Slight peaking of T waves is noted on EKG. Patient is ordered insulin, glucose, Kayexalate. CT scan does reveal cellulitis/panniculitis. Patient be given a dose of clindamycin. I will speak with hospitalist regarding admission. ED Disposition - Plan for ED Patient: Disposition: Acute Care Hospital [facility] Diagnosis: Acute renal failure, Hyperkalemia, Panniculitis Referrals: Brittany Sorenson MD [Primary Care Provider] -
[2019-05-08] MEDS: 0.9% Normal Saline 1,000 ML 150 ML IV ×3 (11:10→23:53)
[2019-05-08 11:17] LABS: Absolute Lymphocyte Count 0.57 X10^3/uL (0.83-4.51); Absolute Neutrophil Count 13.5 X10^3/uL (2.0-7.7); Basophil# 0.02 X10^3/uL; Basophil% 0.1 % (0-1); Hematocrit 34.1 % (37-47); Lymphocyte # 0.57 X10^3/ul (4.0); Lymphocyte % 3.8 % (19-41); Mean Corp Hgb Conc 32.3 g/dL (32-36); Mean Corpuscular Hgb 28.1 pg (27.0-32.0); Mean Corpuscular Volume 87.2 fL (81-99); Mean Platelet Vol. 10.1 fl (6.2-12.0); Monocyte# 1.01 X10^3/uL; Monocyte% 6.6 % (0-10); NRBC Flagged by Analyzer 0 % (0-5); Neutrophil # 13.49 X10^3/uL (2.7-7.7); Neutrophil % 88.8 % (47-70); POSITIVE DIFFERENTIAL YES; POSITIVE MORPHOLOGY YES; Platelet Count 251 K/mm3 (150-450); RBC Distribution Width CV 13.4 % (11.6-14.6); RBC Distribution Width SD 41.8 fl (35.1-43.9); Red Blood Count 3.91 M/mm3 (4.2-5.4); White Blood Count 15.2 K/mm3 (4.4-11.0)
--- NOTE | 2019-05-08 11:29 | ED.RN ---
potassium 6.2 [address] from the lab. dr wray aware
[2019-05-08 11:30] LABS: Anion Gap 9 (5-15); BUN 87 mg/dL (7-18); BUN/Creat Ratio 16.7 RATIO (10-20); Calcium,Total 9.5 mg/dL (8.5-10.1); Chloride 95 mmol/L (98-107); Creatinine, Serum 5.21 mg/dL (0.55-1.02); EST Glomerular Filtration Rate 9 mL/min (>60); Est Glom Filt Rate - Afr Amer 11 mL/min (>60); Estimated Creatinine Clearance 8.45 ml/min; Glucose 216 mg/dL (74-106); Potassium 6.2 mmol/L (3.5-5.1); Sodium Level 127 mmol/L (136-145)
[2019-05-08 11:35] LABS: Differential Indicated SCAN CRITERIA MET
--- NOTE | 2019-05-08 13:19 | HP.PCM_ITS ---
Problem List (1) Sepsis Status: Acute Qualifiers: Sepsis type: sepsis due to unspecified organism Sepsis acute organ dysfunction status: unspecified Qualified Code(s): A41.9 - Sepsis, unspecified organism (2) Panniculitis Status: Acute (3) JH (acute kidney injury) Status: Acute (4) Hyperkalemia Status: Acute (5) Hyponatremia Status: Acute (6) GERD (gastroesophageal reflux disease) Status: Chronic Qualifiers: Esophagitis presence: esophagitis presence not specified Qualified Code(s): K21.9 - Gastro-esophageal reflux disease without esophagitis (7) Anxiety and depression Status: Chronic (8) Chronic pain syndrome Status: Chronic (9) Morbid obesity Status: Chronic (10) Paroxysmal atrial fibrillation Status: Chronic (11) Essential (primary) hypertension Status: Chronic (12) Hyperlipidemia Status: Chronic Qualifiers: Hyperlipidemia type: unspecified Qualified Code(s): E78.5 - Hyperlipidemia, unspecified (13) skilled nursing (current) use of anticoagulants Status: Chronic Comment: Frank for atrial fibrillation History of Present Illness Date of Admission: 05/08/19 Chief Complaint: Abdominal wound, redness. The patient is a 64 y/o F w/ PMHx: Morbid Obesity, PAF, Hx ischial pressure sores, HTN, HLD, Anxiety and Depression, Chronic anemia, Chronic thrombocytopenia, Diabetes mellitus type II, Wheelchair bound secondary to weight who presents to the [facility] ED on 05/08/19 with noted history of falling from chair 3x/2 week period with increased progressively worsening fatigue, malaise, decreased oral intake with no fevers or chills, but recurrent fall this am with noted blood on the floor prompting her to present to the ED. She uses a wheelchair chronically and does perform lists per her report. She notes having a sister who has seen her pannus recently and noted that there was redness and induration. She notes discomfort w/ palpation of the region. She notes she was supposed to have upcoming panniculectomy with Dr. Valle on 05/19/18. Work-up in the ED included T 97.5, heart rate 100, BP initially 98/84 with repeat 122/68, respiratory rate 18, 95% on room air, CBC with WBC 15.2, hemoglobin 11, platelet 251 with left shift, BMP with sodium 127, potassium 6.2, chloride 95, BUN/creatinine 87/5.21, glucose 216, CT abdomen and pelvis with findings consistent with cellulitis but inflammatory stranding infiltrating the low anterior abdominal wall panniculus as well as a notably swollen mons pubis and external labia/perineum greater on the right with additional edematous and inflammatory stranding also seen in the subcutaneous tissues of visualized right thigh, atherosclerotic calcifications noted in the external iliac and visualized femoral arteries with abdominal aorta unremarkable, nidus of parenchymal calcif cation in the anterior mid to lower pole of the left kidney EKG w/ SR with minimal peaked T-waves. In the ED patient ministered clindamycin, normal saline, dextrose, insulin as well as Kayexalate. 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) Eliquis for atrial fibrillation Abdominal panniculus (Chronic) Edema of abdominal wall (Chronic) Intertrigo (Chronic) abdominal wall skin crease intertrigo Panniculitis (Chronic) Medical History: Medical History (Last Reviewed 04/08/19 @ 08:50 by Emi Keene) Morbid obesity (Chronic) E66.01 Paroxysmal atrial fibrillation (Chronic) I48.0 Essential (primary) hypertension (Chronic) I10 Hyperlipidemia (Chronic) E78.5 Abdominal panniculus (Chronic) E65 Edema of abdominal wall (Chronic) R60.0 Intertrigo (Chronic) L30.4 abdominal wall skin crease intertrigo Panniculitis (Chronic) M79.3 Abdominal wall pain in both lower quadrants R10.31, R10.32 Anemia D64.9 Arthritis M19.90 Atrial fibrillation with rapid ventricular response Onset Date: 12/2017 I48.91 Back problem M53.9 Breast lump in female N63.0 Depression F32.9 Difficulty balancing when standing R26.89 and when ambulating Excessive weight loss R63.4 70 lbs over last year Late effect of medical and surgical care complication T88.9XXS painful insulin nodules abdominal wall Neuropathy G62.9 Normochromic normocytic anemia D64.9 Osteoarthritis M19.90 Panniculitis M79.3 Pressure sore of left ischium, unstageable L89.320 Pressure ulcer L89.90 Right ischial pressure sore, stage 2 L89.312 Thrombocytopenia D69.6 Type 2 diabetes mellitus E11.9 Umbilical hernia K42.9 History of blood transfusion Z92.89 Kidney failure N19 Rupture of hernia K46.[address] OAKLEY UTI (urinary tract infection) N39.0 Allergies amoxicillin Adverse Reaction (Verified 05/08/19 10:24) Other latex Adverse Reaction (Verified 05/08/19 10:24) Other Home Medications: Ambulatory Orders Medication Instructions Recorded Citalopram [Celexa] 20 mg PO DAILY 07/10/16 Gabapentin [Neurontin] 300 mg PO BID 07/22/17 Apixaban [Eliquis] 5 mg PO BID tab 12/24/17 Morphine Sulfate [Ms Contin] 60 mg PO BID 2 Days #4 tablet.er 12/24/17 Menthol/Lanolin/Calamine/Znox 1 applic TOPICAL BID 05/08/19 [Calmoseptine Ointment] Metoprolol Tartrate 100 mg PO DINNER 05/08/19 Metoprolol Tartrate [Lopressor 50 mg PO BREAKFAST 05/08/19 (beta tristen)] Tizanidine HCl 2 - 4 mg PO BID 05/08/19 Surgical History: Surgical History (Last Reviewed 04/08/19 @ 08:50 by Emi Keene) Bilateral ischial wound debridement History of herniorrhaphy Z98.890, Z87.19 Hx of cholecystectomy Z90.49 Surgical History: cholecystectomy, - - Bilateral ischial wound debridement. 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 Lives: Alone Smoking Status: Never smoker Tobacco Use: Non-smoker Alcohol: None Drugs: None - *Family History Paternal Family History: Family History (Last Reviewed 04/08/19 @ 08:50 by Emi Keene) Father Diabetes Mother Arthritis Hypertension Heart disease Sister Arthritis Diabetes Heart disease Hypertension High cholesterol History Items: Diabetes Maternal Family History: Family History (Last Reviewed 04/08/19 @ 08:50 by Emi Keene) Father Diabetes Mother Arthritis Hypertension Heart disease Sister Arthritis Diabetes Heart disease Hypertension High cholesterol History Items: High Cholesterol, Heart Disease, Hypertension Review of Systems Constitutional: Reports: Anorexia, Malaise, Weakness, Fatigue. Denies: Chills, Fever, Weight Change HEENT: Denies: Head Aches, Sinus Congestion, Sinus Drainage Cardiovascular: Denies: Chest Pain, Palpitations Respiratory: Reports: Shortness of breath upon exertion. Denies: Cough, Shortness of Breath, Shortness of breath at rest, Sputum production Gastrointestinal: Reports: Abdominal Pain. Denies: Nausea, Vomiting Genitourinary: Reports: Incontinence. Denies: Dysuria Musculoskeletal: Reports: Joint Pain, Muscle pain. Denies: Joint Tenderness Skin: Reports: Skin Changes, Wounds. Denies: Rash Neurological: Reports: Numbness, Tingling. Denies: Focal weakness Psychiatric: Reports: Anxiety, Depression. Denies: Homicidal Ideations, Suicidal Ideations Hematologic/ Lymphatic: Reports: Anemia, Easy Bruising, Easy Bleeding VTE Information - Inpt Only VTE Present on Admission: No VTE Mechan Device Prophylaxis: SCD's VTE Pharm Prophylaxis ordered?: No Reason prophylaxis not ordered:: Treatment Not Indicated - Continue home oral anticoagulation. Patient Problems: Active and Suspected Problems (Last Reviewed 04/08/19 @ 08:50 by Emi Keene) Acute renal failure (Acute) Hyperkalemia (Acute) Sepsis (Acute) Panniculitis (Acute) JH (acute kidney injury) (Acute) Hyperkalemia (Acute) Hyponatremia (Acute) Subjective: Seated upright in the ED bed, fatigued appearance, no acute distress. Objective: Physical Examination: General: awake, alert, oriented x 3 and cooperative, seated upright in the ED bed, mildly fatigued appearance, no acute distress. Skin: normal color, turgor, no icterus, cyanosis or notable bilateral lower extremity stasis changes and occasional abrasion but noninfected appearing, notable pannus, intertrigo evident, cellulitic, indurated, tender to touch. HEENT: AT/NC, EOMI, PERRLA, dry MM, no carotid bruits or JVD noted evidence; however, thickened neck makes examination difficult. Lungs: Diminished breath sounds throughout, very distant, likely secondary to habitus, moderate effort, no rales, ronchi or wheezing. Heart: Regular rate and rhythm; no gallop, rub audible. Abdomen: soft, overly obese, see skin changes for her [place] and cellulitic changes, expected discomfort with palpation of the cellulitic, indurated region, very difficult to assess distention given habitus, distant bowel sounds normal, unable to discern HSM secondary to severity of habitus. Extremities: no cyanosis, clubbing, bilateral lower extremity ankle to distal caruso 1+ pitting edema, see skin. Neurological: patient awake, alert, oriented x 3; cognitive function intact; pupils equally reactive to light and accomodation; cranial nerves II-XII grossly normal, moving all 4 extremities, no focal deficits, strength severely global decrease secondary to chronic comorbidities, wheelchair bound with transfer ability only secondary to weight, as well as acute presentation as noted. Psychiatric: affect appears fatigued, no acute evidence of depressive or anxiety feelings. - Physical Exam Vitals/I&O's: Vital Signs Temp Pulse Resp BP Pulse Ox 98.0 F 90 18 122/68 H 97 05/08/19 11:45 05/08/19 11:45 05/08/19 11:45 05/08/19 11:45 05/08/19 11:45 Oxygen Delivery Method Room Air Weight: 309 lb 4.937 oz Body Mass Index (BMI) 58.4 Finger Stick Blood Glucose 236 Laboratory Results 05/08/19 11:05: WBC 15.2 H, RBC 3.91 L, Hgb 11.0 L, Hct 34.1 L, MCV 87.2, MCH 28.1, MCHC 32.3, RDW Std Deviation 41.8, RDW Coeff of Radha 13.4, Plt Count 251, MPV 10.1, Immature Gran % (Auto) 0.700, Neut % (Auto) 88.8 H, Lymph % (Auto) 3.8 L, Morgan % (Auto) 6.6, Eos % (Auto) 0.0, Baso % (Auto) 0.1, Absolute Neuts (auto) 13.5 H, Absolute Lymphs (auto) 0.57 L, Nucleated RBC % 0 05/08/19 11:05: Sodium 127 L, Potassium 6.2 H*, Chloride 95 L, Carbon Dioxide 23.0, Anion Gap 9, BUN 87 H, Creatinine 5.21 H, Estim Creat Clear Calc 8.45, Est GFR (MDRD) Af Amer 11 L, Est GFR (MDRD) Non-Af 9 L, BUN/Creatinine Ratio 16.7, Glucose 216 H, Calcium 9.5 Current Medications Sodium Chloride () 1,000 mls @ 150 mls/hr IV .[id number] [facility] Last Admin: 05/08/19 11:10 Dose: 150 mls/hr Documented by: Clindamycin Phosphate 600 mg/ (Dextrose) 54 mls @ 100 mls/hr IV X1 ONE Stop: 05/08/19 13:41 Assessment/Plan All Active Problems (Last Reviewed 04/08/19 @ 08:50 by Emi Keene) Acute renal failure (Acute) Hyperkalemia (Acute) Sepsis (Acute) Panniculitis (Acute) JH (acute kidney injury) (Acute) Hyperkalemia (Acute) Hyponatremia (Acute) ARF (acute renal failure) (Resolved) Acute cystitis (Resolved) Decubitus ulcer of left ischium, stage 4 (Resolved) Hyperkalemia (Resolved) Hypoglycemia associated with type 2 diabetes mellitus (Resolved) Open wound of umbilical region (Resolved) Pressure sore of left ischium, unstageable (Resolved) Rhabdomyolysis (Resolved) Right ischial pressure sore, stage 2 (Resolved) Right ischial pressure sore, stage 3 (Resolved) Skin necrosis (Resolved) The patient is a 64 y/o F w/ PMHx: Morbid Obesity, PAF, Hx ischial pressure sores, HTN, HLD, Anxiety and Depression, Chronic anemia, Chronic thrombocytopenia, Diabetes mellitus type II, Wheelchair bound secondary to weight who presents to the [facility] ED on 05/08/19 with noted history of falling from chair 3x/2 week period with increased progressively worsening fatigue, malaise, decreased oral intake with no fevers or chills, but recurrent fall this am with noted blood on the floor prompting her to present to the ED. 1. Acute Sepsis secondary to Acute panniculitis: Will admit to PCU given K level, maintain on IV vanc and zosyn given underling DM and severe appearance, will obtain Wound Cx, will obtain Wound MRSA PCR, plan repeat CBC in AM, continue attempted elevation of the pannus with aggressive fold care, planned consultation with Dr. Valle, Wound RN consultation, monitor erythema outline with VS checks. 2. Acute kidney injury: Secondary to poor intake, hypovolemia, dehydration. Admission BUN/Cr 87/5.21, prior baseline creatinine noted to be 0.7-0.8. Will hydrate, hold nephrotoxic medications and repeat chemistry in AM. Given severity of appearance will obtain renal ultrasound and FeNa assessment. We will also request nephrology consultation. 3. Hyperkalemia: Admission potassium 6.2, maintain on telemetry, treated with Kayexalate, insulin, dextrose in the ED, repeat level upon admission and in a.m. 4. Hyponatremia, hypovolemic: Admission sodium 127, prior baseline noted to be normal, suspect hypovolemia as etiology, will continue to aggressively hydrate, repeat BMP upon admission as noted and in a.m. 5. Hypertension: Continue home regimen including metoprolol, PRN hydralazine. 6. Diabetes mellitus type II: Hold oral home regimen, obtain hemoglobin A1c as from current not on regimen, allow ADA diet, accu checks w/ ISS. 7. Morbid Obesity: Weight loss and lifestyle changes encouraged, nutrition consulted. 8. GERD: Transition to PPI given renal function. 9. Anxiety and depression: Given severity of renal dysfunction we will hold patient home Celexa, resume once clinically appropriate. 10. Chronic pain syndrome: We will transition home Neurontin regimen to renal dosing, additionally will hold off on long-acting MS Contin and will use short acting as needed. 11. PAF: We will continue patient home Eliquis regimen as well as metoprolol. 12. DVT prophylaxis: SCDs, home eliquis regimen. 13. CODE status: Patient has no HCPOA nor living will. Given her history and co-morbidities, discussed CODE status at length including difference between FULL code, DNR-CCA and DNR-CC status. Following discussions about the differences in these status, requested Full Code status. Encouraged her to discuss setting up these items with case management and assigning a family member. Advanced Care Planning Face to Face Time: 16 minutes. Code Visit Inpatient E&M: 45426 Init Hosp L3 Procedures: 33093 Advncd Care Plan 30 Min
--- NOTE | 2019-05-08 13:30 | NURSING ---
PCU WHITE PANNICULITIS, RENAL FAILURE, HYPERKALEMIA
[2019-05-08] MEDS: Dextrose 10%-Water 250 ML 999 ML IV (13:55)
--- NOTE | 2019-05-08 14:02 | ED.RN ---
pt is ok to come to floor. postponed taking pt to the floor due to waiting on Dextrose 10% to infuse to give other medications before going to pcu.
[2019-05-08] MEDS: Sodium Polystyrene Sulfonate 15 GM/60 ML UDC 45 GM PO (14:10)
[2019-05-08] MEDS: Insulin Lispro 5 UNIT in Syringe 0 ML 3 UNIT IV (14:17)
[2019-05-08 14:21] LABS: Lactic Acid 1.5 mmol/L (0.4-1.9)
--- NOTE | 2019-05-08 14:58 | US_ITS ---
STUDY: RENAL ULTRASOUND - COMPLETE REASON FOR EXAM: Female, 64 years old. Acute kidney injury. TECHNIQUE: Ultrasound evaluation of the kidneys was performed with real-time and static hopper-scale imaging. COMPARISON: CT abdomen and pelvis without contrast 1151 hours. FINDINGS: RIGHT KIDNEY: Normal location of the right kidney, which is normal in size. The right kidney measures 10.8 x 4.9 x 5.3 cm. There is a normal cortex of the right kidney. The renal cortex measures 1.5 cm. There is no right renal mass or cyst. There are no right renal calculi. There is no right hydronephrosis. DISTAL RIGHT URETER: There is non-visualization of the distal right ureter. There is no demonstrated right ureterovesical junction calculus. There is no demonstrated right ureteral jet. LEFT KIDNEY: Normal location of the left kidney, which is normal in size. The left kidney measures 10.8 x 4.6 x 5.5 cm. There is a normal cortex of the left kidney. The renal cortex measures 1.1 cm. There is no left renal mass or cyst. There are no left renal calculi. There is no left hydronephrosis. DISTAL LEFT URETER: There is non-visualization of the distal left ureter. There is no demonstrated left ureterovesical junction calculus. There is no demonstrated left ureteral jet. BLADDER: The urinary bladder is not visualized, possibly obscured in this patient with notable edematous swelling and inflammatory infiltration of the lower abdominal wall panniculus. US/Kidney and Bladder IMPRESSION: Normal ultrasound of the kidneys. No hydronephrosis. The urinary bladder is not visualized Electronically Signed: Jerel Mann MD at 19:33 EST , Service support ,
[2019-05-08 15:30] LABS: Magnesium 2.3 mg/dL (1.6-2.6)
[2019-05-08 15:53] LABS: Anion Gap 8 (5-15); BUN 89 mg/dL (7-18); BUN/Creat Ratio 17.9 RATIO (10-20); Chloride 97 mmol/L (98-107); Creatinine, Serum 4.98 mg/dL (0.55-1.02); EST Glomerular Filtration Rate 9 mL/min (>60); Est Glom Filt Rate - Afr Amer 11 mL/min (>60); Estimated Creatinine Clearance 8.84 ml/min; Glucose 197 mg/dL (74-106); Potassium 5.4 mmol/L (3.5-5.1); Sodium Level 129 mmol/L (136-145)
--- NOTE | 2019-05-08 15:59 | PCM.RX.CS ---
Consult Pharmacy has been consulted to manage selected antiobiotic: Vancomycin Type of Consult: New start Suspected Infection: Other Labs: Sodium 129 mmol/L (136-145) L 05/08/19 15:25 Potassium 5.4 mmol/L (3.5-5.1) H 05/08/19 15:25 Chloride 97 mmol/L (98-107) L 05/08/19 15:25 Carbon Dioxide 24.0 mmol/L (21.0-32.0) 05/08/19 15:25 Anion Gap 8 (5-15) 05/08/19 15:25 BUN 89 mg/dL (7-18) H 05/08/19 15:25 Creatinine 4.98 mg/dL (0.55-1.02) H 05/08/19 15:25 Est GFR (MDRD) Af Amer 11 mL/min (>60) L 05/08/19 15:25 Est GFR (MDRD) Non-Af 9 mL/min (>60) L 05/08/19 15:25 BUN/Creatinine Ratio 17.9 RATIO (10-20) 05/08/19 15:25 Glucose 197 mg/dL (74-106) H 05/08/19 15:25 Weight used for dosin kg Estimated Creatinine Clearance: 9 mL/min Goal Trough: 15-20 mcg/mL Pharmacy Plan for Drug Dosing: Per policy for patient with CrCl < 20 mL/min and not on HD, patient will receive 2000mg vanc IV x1 and random level with following 2nd a.m. labs. Dose based on that level or significantly improved renal function in the meantime. Pharmacy Service will continue to monitor and adjust dosing as required. Follow-Up Labs: Trough Vancomycin - Random 05/10/19 @ w/ morning labs
[2019-05-08 17:20] LABS: Bedside Glucose 186 mg/dL (70-110)
[2019-05-08] MEDS: Insulin Lispro 100 UNIT/ML INSULN.PEN SC (18:22)
[2019-05-08] MEDS: Metoprolol Tartrate 100 MG Tablet PO (18:23)
[2019-05-08] MEDS: Gabapentin 100 MG Capsule PO (18:23)
[2019-05-08 19:12] LABS: Mucous, Urine 0 SEEN /hpf (<or=2+); Red Blood Cells-Urine 0 SEEN /hpf (0-5)
[2019-05-08 19:16] LABS: Color, Urine Yellow (Yellow); Glucose, Dipstick Normal (Normal); Ketone-Dipstick 5 mg/dl (Negative); Leukocyte Esterase-Dipstick 25 /ul (Negative); Nitrite-Dipstick Negative (Negative); Occult Blood-Urine 150 /ul (Negative); Protein-Dipstick 30 mg/dl (Negative); Specific Gravity, Urine 1.025 (1.002-1.030); Urine Clarity Cloudy (Clear); Urine Urobilinogen 1 mg/dl (Normal)
[2019-05-08 19:18] LABS: Urine Bilirubin Dipstick 1 mg/dL (Negative)
[2019-05-08 19:33] LABS: Bacteria 3+ /hpf (None Seen); Squamous Epithelial Cells - UA 0-5 SEEN /hpf (5-10); White Blood Cells 0-5 SEEN /hpf (0-5)
[2019-05-08 19:34] LABS: Urine Sodium 12 mmol/L (Not Establ.)
[2019-05-08 20:19] LABS: M R Staph aureus DNA By PCR Negative (Negative); Probe Check PASS; Specimen Processing Control PASS; Staph aureus DNA By PCR NEGATIVE (Negative)
--- NOTE | 2019-05-08 21:08 | NURSING ---
This author entered patient's room. Patient found with head slumped down in bed, snoring respirations, not responsive to verbal stimuli. Patient opened eyes to sternal rub, made inappropriate sounds and withdrew from pain and then went back to sleep with snoring respirations. Vital signs obtained. BP 73/41, pulse 94 and sinus rhythm on monitor, respirations 12, SpO2 94% on room air. Charge nurse Sweetie notified and a rapid response was called. See rapid response flow sheet for further documentation.
[2019-05-08] MEDS: 0.9% Normal Saline 1,000 ML 1000 ML IV ×2 (21:17→22:20)
--- NOTE | 2019-05-08 21:22 | EKG12_ITS ---
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 Rate : 110 BPM Atrial Rate : 100 BPM P-R Int : 232 ms QRS Dur : 082 ms QT Int : 348 ms P-R-T Axes : 034 -26 060 degrees QTc Int : 470 ms Normal sinus rhythm Low voltage QRS Borderline ECG Possible Old anterior wall MD When compared with ECG of 08-MAY-2019 11:04, MANUAL COMPARISON REQUIRED, DATA IS UNCONFIRMED Confirmed by JACKI PISANO ([id number]), industrial editor YAO LORENZO ([id number] on 05/14/2019 11:28:28 AM Referred By: Carli Castro Confirmed By:JACKI PISANO
[2019-05-08 21:36] LABS: Allen Test POS; Base Excess -2 mmol/L (-2 to +2); Bicarbonate 24.6 mmol/L (22-26); Blood Gas Specimen Type ART; O2 Delivery Device Room Air; PO2 66 mmHG (75-100); SITE R Radial; SO2 91 % (95-99); Total Carbon Dioxide 26 mmol/L; pCO2 47.8 mmHg (35-45); pH 7.32 (7.35-7.45)
[2019-05-08 21:37] LABS: Absolute Lymphocyte Count 1.18 X10^3/uL (0.83-4.51); Absolute Neutrophil Count 7.3 X10^3/uL (2.0-7.7); Basophil# 0.01 X10^3/uL; Basophil% 0.1 % (0-1); Eosinophil# 0.01 X10^3/uL; Eosinophils% 0.1 % (0-5); Hematocrit 28.7 % (37-47); Hemoglobin 9.2 g/dL (12.0-15.0); Lymphocyte # 1.18 X10^3/ul (4.0); Lymphocyte % 12.4 % (19-41); Mean Corp Hgb Conc 32.1 g/dL (32-36); Mean Corpuscular Volume 87.2 fL (81-99); Mean Platelet Vol. 9.7 fl (6.2-12.0); Monocyte# 0.97 X10^3/uL; Monocyte% 10.2 % (0-10); NRBC Flagged by Analyzer 0 % (0-5); Neutrophil # 7.26 X10^3/uL (2.7-7.7); Neutrophil % 76.7 % (47-70); Platelet Count 145 K/mm3 (150-450); RBC Distribution Width CV 13.3 % (11.6-14.6); RBC Distribution Width SD 41.6 fl (35.1-43.9); Red Blood Count 3.29 M/mm3 (4.2-5.4); White Blood Count 9.5 K/mm3 (4.4-11.0)
--- NOTE | 2019-05-08 21:39 | PCM.PN.BLA ---
Progress Note Rapid response: Rapid response was called because patient was hypotensive and was minimally responded. At bedside systolic pressure was 78 and diastolic pressure was 43. Patient lethargic. Heart sounds S1-S2 present lungs are clear. Obese abdomen with redness and drainage from abdominal wound. Bilateral necks with streaks of erythema. Assessment and plan Severe sepsis secondary to panniculitis of abdomen. Patient with a positive for MRSA in wound Additional 2 L of normal saline at the complete sepsis protocol 30 mL's per kilogram per hour. Initial lactic acid in emergency department was negative. Repeat repeat lactic acid. Continue on broad-spectrum antibiotics. Troponin ordered. ABG ordered. ABG returned with hypoxemia. Put on 2 L normal saline. We will keep patient at the PCU for now. Close monitoring. CBC BMP and troponin ordered. On presentation patient had hyperkalemia and received Kayexalate. STROKE Vital Signs/Narrative: Vital Signs Pulse BP 05/08/19 19:00 99 05/08/19 18:23 101 H 110/53 L Code Visit Procedures: 03286 Critial Care 1st Hr
[2019-05-08 21:51] LABS: Anion Gap 8 (5-15); BUN 89 mg/dL (7-18); Calcium,Total 8.6 mg/dL (8.5-10.1); Chloride 99 mmol/L (98-107); Creatinine, Serum 4.68 mg/dL (0.55-1.02); EST Glomerular Filtration Rate 10 mL/min (>60); Est Glom Filt Rate - Afr Amer 12 mL/min (>60); Estimated Creatinine Clearance 9.41 ml/min; Glucose 191 mg/dL (74-106); Potassium 5.2 mmol/L (3.5-5.1); Sodium Level 133 mmol/L (136-145)
[2019-05-08] MEDS: Menthol/Lanolin/Calamine/Znox 113 GM Tube 1 APPLIC TOPICAL (21:55)
[2019-05-08] MEDS: Nystatin Powder 15gm Bottle 1 APPLIC TOPICAL (21:57)
--- NOTE | 2019-05-08 22:39 | SEPSISNOTE ---
Sepsis Note - Physical Exam/Vitals Subjective: Patient's is treated for panniculitis and originally was in severe sepsis. Nurse reported after 30 MS per kilogram bolus of NSS has been completed patient continued to be hypotensive with systolic blood pressure in the 70s and is somnolent. Objective: Abdomen/Pelvis CT 05/08/19 10:50 IMPRESSION: 1. Findings consistent with cellulitis with inflammatory stranding infiltrating the low anterior abdominal wall panniculus as well as the notably swollen mons pubis and external labia/perineum, greater on the right. Additional edematous/inflammatory stranding also seen in the subcutaneous tissues of the visualized right thigh. 2. Atherosclerotic calcifications noted in the external iliac and visualized femoral arteries. The abdominal aorta is unremarkable. 3. Prior cholecystectomy. 4. Borderline thyromegaly. 5. Nidus of parenchymal calcification in the anterior mid to lower pole of left kidney adjacent to a site of cortical thinning. No hydronephrosis. 6. A few partially calcified retroperitoneal lymph nodes are again noted, a node along the right common iliac artery showing mild grossly previous study, still nonspecific in overall appearance. 7. Degenerative changes of the spine and bilateral sacroiliac joints. Electronically Signed: Jerel Mann MD at 12:34 EST , Service support , Renal Ultrasound 05/08/19 14:58 IMPRESSION: Normal ultrasound of the kidneys. No hydronephrosis. The urinary bladder is not visualized Electronically Signed: Jerel Mann MD at 19:33 EST , Service support , Temp Pulse Resp BP Pulse Ox 97.9 F 98 12 76/40 L 96 05/08/19 22:33 05/08/19 22:33 05/08/19 22:33 05/08/19 22:33 05/08/19 22:33 05/08/19 05/08/19 05/08/19 21:30 21:25 21:25 WBC RBC Hgb Hct MCV MCH MCHC RDW Std Deviation RDW Coeff of Radha Plt Count MPV Immature Gran % (Auto) Neut % (Auto) Lymph % (Auto) [place] % (Auto) Eos % (Auto) Baso % (Auto) Absolute Neuts (auto) Absolute Lymphs (auto) Nucleated RBC % Specimen Type ART Sample Site R Radial pH 7.32 L Bicarbonate Actual 24.6 POC Total CO2 26 Base Excess -2 O2 Saturation 91 L ABG pCO2 47.8 H ABG pO2 66 L Jimenez Test POS O2 Delivery Device Room Air Blood Gas Notified Whom HOSP MD Sodium Potassium Chloride Carbon Dioxide Anion Gap BUN Creatinine Estim Creat Clear Calc Est GFR (MDRD) Af Amer Est GFR (MDRD) Non-Af BUN/Creatinine Ratio Glucose Hemoglobin A1c Lactic Acid Calcium Magnesium Ammonia 23.0 Troponin I < 0.015 Urine Color Urine Clarity Urine pH Ur Specific [place] Urine Protein Urine Glucose (UA) Urine Ketones Urine Occult Blood Urine Nitrite Urine Bilirubin Urine Urobilinogen Ur Leukocyte Esterase Urine RBC Urine WBC Ur Squamous Epith Cells Urine Bacteria Urine Mucus Ur Random Sodium Urine Creatinine S.aureus Protein A PCR MRSA (PCR) POC Glucose 05/08/19 05/08/19 05/08/19 21:25 21:25 18:00 WBC 9.5 RBC 3.29 L Hgb 9.2 L Hct 28.7 L MCV 87.2 MCH 28.0 MCHC 32.1 RDW Std Deviation 41.6 RDW Coeff of Radha 13.3 Plt Count 145 L MPV 9.7 Immature Gran % (Auto) 0.500 Neut % (Auto) 76.7 H Lymph % (Auto) 12.4 L [place] % (Auto) 10.2 H Eos % (Auto) 0.1 Baso % (Auto) 0.1 Absolute Neuts (auto) 7.3 Absolute Lymphs (auto) 1.18 Nucleated RBC % 0 Specimen Type Sample Site pH Bicarbonate Actual POC Total CO2 Base Excess O2 Saturation ABG pCO2 ABG pO2 Jimenez Test O2 Delivery Device Blood Gas Notified Whom Sodium 133 L Potassium 5.2 H Chloride 99 Carbon Dioxide 26.0 Anion Gap 8 BUN 89 H Creatinine 4.68 H Estim Creat Clear Calc 9.41 Est GFR (MDRD) Af Amer 12 L Est GFR (MDRD) Non-Af 10 L BUN/Creatinine Ratio 19.0 Glucose 191 H Hemoglobin A1c Lactic Acid Calcium 8.6 Magnesium Ammonia Troponin I Urine Color Urine Clarity Urine pH Ur Specific [place] Urine Protein Urine Glucose (UA) Urine Ketones Urine Occult Blood Urine Nitrite Urine Bilirubin Urine Urobilinogen Ur Leukocyte Esterase Urine RBC Urine WBC Ur Squamous Epith Cells Urine Bacteria Urine Mucus Ur Random Sodium Urine Creatinine S.aureus Protein A PCR NEGATIVE MRSA (PCR) Negative POC Glucose 05/08/19 05/08/19 05/08/19 17:45 17:45 17:45 WBC RBC Hgb Hct MCV MCH MCHC RDW Std Deviation RDW Coeff of Radha Plt Count MPV Immature Gran % (Auto) Neut % (Auto) Lymph % (Auto) [place] % (Auto) Eos % (Auto) Baso % (Auto) Absolute Neuts (auto) Absolute Lymphs (auto) Nucleated RBC % Specimen Type Sample Site pH Bicarbonate Actual POC Total CO2 Base Excess O2 Saturation ABG pCO2 ABG pO2 Jimenez Test O2 Delivery Device Blood Gas Notified Whom Sodium Potassium Chloride Carbon Dioxide Anion Gap BUN Creatinine Estim Creat Clear Calc Est GFR (MDRD) Af Amer Est GFR (MDRD) Non-Af BUN/Creatinine Ratio Glucose Hemoglobin A1c Lactic Acid Calcium Magnesium Ammonia Troponin I Urine Color Yellow Urine Clarity Cloudy Urine pH 5.0 Ur Specific [place] 1.025 Urine Protein 30 H Urine Glucose (UA) Normal Urine Ketones 5 H Urine Occult Blood 150 H Urine Nitrite Negative Urine Bilirubin 1 H Urine Urobilinogen 1 H Ur Leukocyte Esterase 25 H Urine RBC 0 SEEN Urine WBC 0-5 SEEN Ur Squamous Epith Cells 0-5 SEEN Urine Bacteria 3+ Urine Mucus 0 SEEN Ur Random Sodium 12 Urine Creatinine 224.00 S.aureus Protein A PCR MRSA (PCR) POC Glucose 05/08/19 05/08/19 05/08/19 16:52 15:25 13:40 WBC RBC Hgb Hct MCV MCH MCHC RDW Std Deviation RDW Coeff of Radha Plt Count MPV Immature Gran % (Auto) Neut % (Auto) Lymph % (Auto) [place] % (Auto) Eos % (Auto) Baso % (Auto) Absolute Neuts (auto) Absolute Lymphs (auto) Nucleated RBC % Specimen Type Sample Site pH Bicarbonate Actual POC Total CO2 Base Excess O2 Saturation ABG pCO2 ABG pO2 Jimenez Test O2 Delivery Device Blood Gas Notified Whom Sodium 129 L Potassium 5.4 H Chloride 97 L Carbon Dioxide 24.0 Anion Gap 8 BUN 89 H Creatinine 4.98 H Estim Creat Clear Calc 8.84 Est GFR (MDRD) Af Amer 11 L Est GFR (MDRD) Non-Af 9 L BUN/Creatinine Ratio 17.9 Glucose 197 H Hemoglobin A1c Lactic Acid 1.5 Calcium 9.0 Magnesium Ammonia Troponin I Urine Color Urine Clarity Urine pH Ur Specific [place] Urine Protein Urine Glucose (UA) Urine Ketones Urine Occult Blood Urine Nitrite Urine Bilirubin Urine Urobilinogen Ur Leukocyte Esterase Urine RBC Urine WBC Ur Squamous Epith Cells Urine Bacteria Urine Mucus Ur Random Sodium Urine Creatinine S.aureus Protein A PCR MRSA (PCR) POC Glucose 186 H 05/08/19 05/08/19 05/08/19 11:05 11:05 11:05 WBC RBC Hgb Hct MCV MCH MCHC RDW Std Deviation RDW Coeff of Radha Plt Count MPV Immature Gran % (Auto) Neut % (Auto) Lymph % (Auto) [place] % (Auto) Eos % (Auto) Baso % (Auto) Absolute Neuts (auto) Absolute Lymphs (auto) Nucleated RBC % Specimen Type Sample Site pH Bicarbonate Actual POC Total CO2 Base Excess O2 Saturation ABG pCO2 ABG pO2 Jimenez Test O2 Delivery Device Blood Gas Notified Whom Sodium 127 L Potassium 6.2 H* Chloride 95 L Carbon Dioxide 23.0 Anion Gap 9 BUN 87 H Creatinine 5.21 H Estim Creat Clear Calc 8.45 Est GFR (MDRD) Af Amer 11 L Est GFR (MDRD) Non-Af 9 L BUN/Creatinine Ratio 16.7 Glucose 216 H Hemoglobin A1c 7.0 H Lactic Acid Calcium 9.5 Magnesium 2.3 Ammonia Troponin I Urine Color Urine Clarity Urine pH Ur Specific [place] Urine Protein Urine Glucose (UA) Urine Ketones Urine Occult Blood Urine Nitrite Urine Bilirubin Urine Urobilinogen Ur Leukocyte Esterase Urine RBC Urine WBC Ur Squamous Epith Cells Urine Bacteria Urine Mucus Ur Random Sodium Urine Creatinine S.aureus Protein A PCR MRSA (PCR) POC Glucose 05/08/19 11:05 WBC 15.2 H RBC 3.91 L Hgb 11.0 L Hct 34.1 L MCV 87.2 MCH 28.1 MCHC 32.3 RDW Std Deviation 41.8 RDW Coeff of Radha 13.4 Plt Count 251 MPV 10.1 Immature Gran % (Auto) 0.700 Neut % (Auto) 88.8 H Lymph % (Auto) 3.8 L [place] % (Auto) 6.6 Eos % (Auto) 0.0 Baso % (Auto) 0.1 Absolute Neuts (auto) 13.5 H Absolute Lymphs (auto) 0.57 L Nucleated RBC % 0 Specimen Type Sample Site pH Bicarbonate Actual POC Total CO2 Base Excess O2 Saturation ABG pCO2 ABG pO2 Jimenez Test O2 Delivery Device Blood Gas Notified Whom Sodium Potassium Chloride Carbon Dioxide Anion Gap BUN Creatinine Estim Creat Clear Calc Est GFR (MDRD) Af Amer Est GFR (MDRD) Non-Af BUN/Creatinine Ratio Glucose Hemoglobin A1c Lactic Acid Calcium Magnesium Ammonia Troponin I Urine Color Urine Clarity Urine pH Ur Specific [place] Urine Protein Urine Glucose (UA) Urine Ketones Urine Occult Blood Urine Nitrite Urine Bilirubin Urine Urobilinogen Ur Leukocyte Esterase Urine RBC Urine WBC Ur Squamous Epith Cells Urine Bacteria Urine Mucus Ur Random Sodium Urine Creatinine S.aureus Protein A PCR MRSA (PCR) POC Glucose General: Oriented x3, Lethargic Lungs: Clear to auscultation, Normal air movement Cardiovascular: Tachycardic Capillary Refill: <3 seconds Peripheral Pulses: Normal Skin Color: - - Cool bilateral hands. Bilateral feet are warm. - Assessment/Plan Septic shock Patient on vancomycin and Zosyn; continued. Completed normal saline 30 MS per kilogram bolus. Levophed drip ordered. Transfer to intensive care unit. Initial lactic acid was unremarkable. Repeated. MRSA screen is negative. However will continue vancomycin for now. If patient does not improve consider changing Zosyn to Merrem. [employer] consult. Infectious disease consult
--- NOTE | 2019-05-08 22:45 | NURSING ---
Report called to Darren ANTONIO in ICU. Patient being transported via bed to ICU by this author.
[2019-05-08 23:26] LABS: Bedside Glucose 188 mg/dL (70-110)
[2019-05-09] VITALS (18 sets, daily range): BP systolic 90–140; BP diastolic 52–95; PULSE 76–103; RESP 12–24; TEMP 36.2–37.2; O2SAT 97–100
[2019-05-09 03:56] LABS: Absolute Neutrophil Count 5.4 X10^3/uL (2.0-7.7); Basophil# 0.01 X10^3/uL; Basophil% 0.1 % (0-1); Eosinophil# 0.02 X10^3/uL; Eosinophils% 0.3 % (0-5); Hematocrit 25.2 % (37-47); Hemoglobin 8.1 g/dL (12.0-15.0); Lymphocyte % 13.8 % (19-41); Mean Corp Hgb Conc 32.1 g/dL (32-36); Mean Corpuscular Hgb 27.8 pg (27.0-32.0); Mean Corpuscular Volume 86.6 fL (81-99); Mean Platelet Vol. 9.4 fl (6.2-12.0); Monocyte# 0.77 X10^3/uL; Monocyte% 10.7 % (0-10); NRBC Flagged by Analyzer 0 % (0-5); Neutrophil % 74.7 % (47-70); Platelet Count 118 K/mm3 (150-450); RBC Distribution Width CV 13.3 % (11.6-14.6); RBC Distribution Width SD 42.1 fl (35.1-43.9); Red Blood Count 2.91 M/mm3 (4.2-5.4); White Blood Count 7.2 K/mm3 (4.4-11.0)
[2019-05-09 04:14] LABS: Anion Gap 3 (5-15); BUN 77 mg/dL (7-18); BUN/Creat Ratio 19.3 RATIO (10-20); Calcium,Total 7.5 mg/dL (8.5-10.1); Chloride 102 mmol/L (98-107); Creatinine, Serum 3.99 mg/dL (0.55-1.02); EST Glomerular Filtration Rate 12 mL/min (>60); Est Glom Filt Rate - Afr Amer 15 mL/min (>60); Estimated Creatinine Clearance 11.03 ml/min; Glucose 128 mg/dL (74-106); Potassium 4.3 mmol/L (3.5-5.1); Sodium Level 134 mmol/L (136-145)
--- NOTE | 2019-05-09 05:53 | PCM.PN.BLA ---
Progress Note Discontinue Eliquis since patient may need surgery/debridement of pannus. Eliquis is for A. fib and not thrombo-embolus. Patient is in sinus rhythm. Patient will be started on heparin products at this time. DVT prophylaxis with SCD. STROKE Vital Signs/Narrative: Vital Signs Temp Pulse Resp BP Pulse Ox 05/09/19 05:00 86 17 96/55 L 100 05/09/19 04:00 97.2 F L 87 19 H 95/53 L 100 05/09/19 03:00 87 22 H 90/56 L 100 05/09/19 02:00 98.0 F 88 22 H 105/85 H 100
--- NOTE | 2019-05-09 05:55 | EKG12_ITS ---
Test Reason : AM Blood Pressure : / mmHG Vent. Rate : 090 BPM Atrial Rate : 090 BPM P-R Int : 208 ms QRS Dur : 094 ms QT Int : 372 ms P-R-T Axes : 004 -24 040 degrees QTc Int : 455 ms Normal sinus rhythm Poor R wave progression Confirmed by ANGEL FAGAN, ROSA MARIA ([id number]), restaurant expeditor YAO LORENZO ([id number] on 05/13/2019 12:57:30 PM Referred By: Carli Castro Confirmed By:ROSA MARIA ORTIZ MD
--- NOTE | 2019-05-09 06:22 | PCM.CON.CC ---
Reason for Consult Date of Consultation: 05/09/19 Reason for Consultation: Septic shock History of Present Illness: The patient is a 64-year-old female, with a history as outlined below, who initially presented to the emergency department on May 08 with generalized malaise and fatigue. The patient is essentially wheelchair-bound in her home environment and did report decreased p.o. intake and recurrent falls recently. She denies ever having been tested or diagnosed with obstructive sleep apnea in the past. On presentation to the emergency department, the patient was noted to be afebrile and hemodynamically stable. She was maintaining appropriate oxygen saturations on room air. Laboratory evaluation revealed an elevated white blood cell count to 15,000. Chemistry profile was notable for a sodium of 127, chloride of 95, potassium of 6.2 and creatinine of 5.21. A CT abdomen/pelvis revealed findings consistent with cellulitis of the low anterior abdominal wall. The patient was provided with supplemental IV fluid hydration and placed on broad-spectrum antimicrobials over concerns for sepsis secondary to cellulitis. The patient was initially admitted to the progressive care unit. During the evening hours of May 08 a rapid response team was called as the patient was noted to be hypotensive and minimally responsive. She was provided with additional supplemental IV fluid hydration. Arterial blood gas was obtained which revealed a pH of 7.32 with a corresponding PCO2 of 48 and PO2 of 66. Repeat troponin level was negative. Lactate was noted to be 1.5. Ammonia level was 23. The patient was subsequently transferred to the medical intensive care unit for further management. Overnight, the patient remained hemodynamically stable and never required the initiation of vasopressor support. Past Medical History Past Medical History (Chronic Problems): Chronic Problems (Last Reviewed 04/08/19 @ 08:50 by Emi Keene) GERD (gastroesophageal reflux disease) (Chronic) Anxiety and depression (Chronic) Chronic pain syndrome (Chronic) Morbid obesity (Chronic) Paroxysmal atrial fibrillation (Chronic) Essential (primary) hypertension (Chronic) Hyperlipidemia (Chronic) FDC (current) use of anticoagulants (Chronic) Eliquis for atrial fibrillation Abdominal panniculus (Chronic) Edema of abdominal wall (Chronic) Intertrigo (Chronic) abdominal wall skin crease intertrigo Panniculitis (Chronic) Medical History: Medical History (Last Reviewed 04/08/19 @ 08:50 by Emi Keene) Morbid obesity (Chronic) E66.01 Paroxysmal atrial fibrillation (Chronic) I48.0 Essential (primary) hypertension (Chronic) I10 Hyperlipidemia (Chronic) E78.5 Abdominal panniculus (Chronic) E65 Edema of abdominal wall (Chronic) R60.0 Intertrigo (Chronic) L30.4 abdominal wall skin crease intertrigo Panniculitis (Chronic) M79.3 Abdominal wall pain in both lower quadrants R10.31, R10.32 Anemia D64.9 Arthritis M19.90 Atrial fibrillation with rapid ventricular response Onset Date: 12/2017 I48.91 Back problem M53.9 Breast lump in female N63.0 Depression F32.9 Difficulty balancing when standing R26.89 and when ambulating Excessive weight loss R63.4 70 lbs over last year Late effect of medical and surgical care complication T88.9XXS painful insulin nodules abdominal wall Neuropathy G62.9 Normochromic normocytic anemia D64.9 Osteoarthritis M19.90 Panniculitis M79.3 Pressure sore of left ischium, unstageable L89.320 Pressure ulcer L89.90 Right ischial pressure sore, stage 2 L89.312 Thrombocytopenia D69.6 Type 2 diabetes mellitus E11.9 Umbilical hernia K42.9 History of blood transfusion Z92.89 Kidney failure N19 Rupture of hernia K46.[address] OAKLEY UTI (urinary tract infection) N39.0 Allergies amoxicillin Adverse Reaction (Verified 05/08/19 10:24) Other latex Adverse Reaction (Verified 05/08/19 10:24) Other Home Medications: Ambulatory Orders Medication Instructions Recorded Citalopram [Celexa] 20 mg PO DAILY 07/10/16 Gabapentin [Neurontin] 300 mg PO BID 07/22/17 Apixaban [Eliquis] 5 mg PO BID tab 12/24/17 Morphine Sulfate [Ms Contin] 60 mg PO BID 2 Days #4 tablet.er 12/24/17 Menthol/Lanolin/Calamine/Znox 1 applic TOPICAL BID 05/08/19 [Calmoseptine Ointment] Metoprolol Tartrate 100 mg PO DINNER 05/08/19 Metoprolol Tartrate [Lopressor 50 mg PO BREAKFAST 05/08/19 (beta tristen)] Tizanidine HCl 2 - 4 mg PO BID 05/08/19 Surgical History: Surgical History (Last Reviewed 04/08/19 @ 08:50 by Emi Keene) Bilateral ischial wound debridement History of herniorrhaphy Z98.890, Z87.19 Hx of cholecystectomy Z90.49 Surgical History: cholecystectomy, - - Bilateral ischial wound debridement. 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 Lives: Alone Smoking Status: Never smoker Tobacco Use: Non-smoker Alcohol: None Drugs: None - *Family History Paternal Family History: Family History (Last Reviewed 04/08/19 @ 08:50 by Emi Keene) Father Diabetes Mother Arthritis Hypertension Heart disease Sister Arthritis Diabetes Heart disease Hypertension High cholesterol History Items: Diabetes Maternal Family History: Family History (Last Reviewed 04/08/19 @ 08:50 by Emi Keene) Father Diabetes Mother Arthritis Hypertension Heart disease Sister Arthritis Diabetes Heart disease Hypertension High cholesterol History Items: High Cholesterol, Heart Disease, Hypertension Review of Systems Constitutional: Reports: Malaise, Weakness Eyes: Denies: Blurred vision, Double vision HEENT: Denies: Head Aches, Sinus Congestion, Sinus Drainage Cardiovascular: Denies: Chest Pain, Palpitations Respiratory: Denies: Cough, Shortness of breath at rest, Sputum production Gastrointestinal: Reports: Abdominal Pain Genitourinary: Denies: Dysuria Musculoskeletal: Denies: Joint Pain, Joint Tenderness Skin: Reports: Wounds Neurological: Denies: Numbness, Tingling, Focal weakness Psychiatric: Denies: Anxiety, Depression, Homicidal Ideations, Suicidal Ideations Hematologic/ Lymphatic: Reports: Anemia Patient Problems: Active and Suspected Problems (Last Reviewed 04/08/19 @ 08:50 by Emi Keene) Septic shock (Acute) Acute renal failure (Acute) Hyperkalemia (Acute) Sepsis (Acute) Panniculitis (Acute) JH (acute kidney injury) (Acute) Hyperkalemia (Acute) Hyponatremia (Acute) Objective: The patient's most recent lab work, culture data and imaging studies have all been personally reviewed. - Physical Exam Vitals/I&O's: Vital Signs Temp Pulse Resp BP Pulse Ox 97.2 F L 89 21 H 100/80 99 05/09/19 04:00 05/09/19 06:00 05/09/19 06:00 05/09/19 06:00 05/09/19 06:00 Oxygen Flow Rate (L/min) 2 Oxygen Delivery Method Nasal Cannula Weight: 308 lb 10.354 oz Body Mass Index (BMI) 55.2 Finger Stick Blood Glucose 236 Intake and Output for Last 24 Hours 05/07/19 05/08/19 05/09/19 23:59 23:59 23:59 Intake Total 2851.55 / 2851.55 1000 / 1000 Output Total 250 / 250 450 / 450 Balance 2601.55 / 2601.55 550 / 550 General: - - Sleeping, but arouses to verbal stimulation. Prior to awakening the patient, audible snoring was present along with witnessed apneic events. HEENT: Atraumatic, PERRLA, Normocephalic Oral: No Gingival or Mucosal Lesions/ Ulcerations Neck: Supple, No Nodes Lungs: Diminished Cardiovascular: Regular rate, Regular Rhythm, Normal S1, Normal S2 Abdomen: Bowel Sounds Present, Soft, Obese, - - Large pannus with wounds present Extremities: No clubbing, No cyanosis, Edema, - - Pretibial right lower extremity petechial rash Skin: Ulcer/ Wound - Panniculitis with open wounds present on admission Musculoskeletal: No Muscle Wasting Lymphatic: No Cervical, Supraclavicular, or Inguinal Adenopathy Neurological: Neuro grossly intact Psych/Mental Status: Flat Affect Labs (Last 48 Hours) 05/08/19 05/08/19 05/08/19 11:05 11:05 11:05 WBC 15.2 H RBC 3.91 L Hgb 11.0 L Hct 34.1 L MCV 87.2 MCH 28.1 MCHC 32.3 RDW Std Deviation 41.8 RDW Coeff of Radha 13.4 Plt Count 251 MPV 10.1 Immature Gran % (Auto) 0.700 Neut % (Auto) 88.8 H Lymph % (Auto) 3.8 L [place] % (Auto) 6.6 Eos % (Auto) 0.0 Baso % (Auto) 0.1 Absolute Neuts (auto) 13.5 H Absolute Lymphs (auto) 0.57 L Nucleated RBC % 0 Specimen Type Sample Site pH Bicarbonate Actual POC Total CO2 Base Excess O2 Saturation ABG pCO2 ABG pO2 Jimenez Test O2 Delivery Device Blood Gas Notified Whom Sodium 127 L Potassium 6.2 H* Chloride 95 L Carbon Dioxide 23.0 Anion Gap 9 BUN 87 H Creatinine 5.21 H Estim Creat Clear Calc 8.45 Est GFR (MDRD) Af Amer 11 L Est GFR (MDRD) Non-Af 9 L BUN/Creatinine Ratio 16.7 Glucose 216 H Hemoglobin A1c Lactic Acid Calcium 9.5 Magnesium 2.3 Ammonia Troponin I Urine Color Urine Clarity Urine pH Ur Specific [place] Urine Protein Urine Glucose (UA) Urine Ketones Urine Occult Blood Urine Nitrite Urine Bilirubin Urine Urobilinogen Ur Leukocyte Esterase Urine RBC Urine WBC Ur Squamous Epith Cells Urine Bacteria Urine Mucus Ur Random Sodium Urine Creatinine S.aureus Protein A PCR MRSA (PCR) POC Glucose 05/08/19 05/08/19 05/08/19 11:05 13:40 15:25 WBC RBC Hgb Hct MCV MCH MCHC RDW Std Deviation RDW Coeff of Radha Plt Count MPV Immature Gran % (Auto) Neut % (Auto) Lymph % (Auto) [place] % (Auto) Eos % (Auto) Baso % (Auto) Absolute Neuts (auto) Absolute Lymphs (auto) Nucleated RBC % Specimen Type Sample Site pH Bicarbonate Actual POC Total CO2 Base Excess O2 Saturation ABG pCO2 ABG pO2 Jimenez Test O2 Delivery Device Blood Gas Notified Whom Sodium 129 L Potassium 5.4 H Chloride 97 L Carbon Dioxide 24.0 Anion Gap 8 BUN 89 H Creatinine 4.98 H Estim Creat Clear Calc 8.84 Est GFR (MDRD) Af Amer 11 L Est GFR (MDRD) Non-Af 9 L BUN/Creatinine Ratio 17.9 Glucose 197 H Hemoglobin A1c 7.0 H Lactic Acid 1.5 Calcium 9.0 Magnesium Ammonia Troponin I Urine Color Urine Clarity Urine pH Ur Specific [place] Urine Protein Urine Glucose (UA) Urine Ketones Urine Occult Blood Urine Nitrite Urine Bilirubin Urine Urobilinogen Ur Leukocyte Esterase Urine RBC Urine WBC Ur Squamous Epith Cells Urine Bacteria Urine Mucus Ur Random Sodium Urine Creatinine S.aureus Protein A PCR MRSA (PCR) POC Glucose 05/08/19 05/08/19 05/08/19 16:52 17:45 17:45 WBC RBC Hgb Hct MCV MCH MCHC RDW Std Deviation RDW Coeff of Radha Plt Count MPV Immature Gran % (Auto) Neut % (Auto) Lymph % (Auto) [place] % (Auto) Eos % (Auto) Baso % (Auto) Absolute Neuts (auto) Absolute Lymphs (auto) Nucleated RBC % Specimen Type Sample Site pH Bicarbonate Actual POC Total CO2 Base Excess O2 Saturation ABG pCO2 ABG pO2 Jimenez Test O2 Delivery Device Blood Gas Notified Whom Sodium Potassium Chloride Carbon Dioxide Anion Gap BUN Creatinine Estim Creat Clear Calc Est GFR (MDRD) Af Amer Est GFR (MDRD) Non-Af BUN/Creatinine Ratio Glucose Hemoglobin A1c Lactic Acid Calcium Magnesium Ammonia Troponin I Urine Color Yellow Urine Clarity Cloudy Urine pH 5.0 Ur Specific [place] 1.025 Urine Protein 30 H Urine Glucose (UA) Normal Urine Ketones 5 H Urine Occult Blood 150 H Urine Nitrite Negative Urine Bilirubin 1 H Urine Urobilinogen 1 H Ur Leukocyte Esterase 25 H Urine RBC 0 SEEN Urine WBC 0-5 SEEN Ur Squamous Epith Cells 0-5 SEEN Urine Bacteria 3+ Urine Mucus 0 SEEN Ur Random Sodium Urine Creatinine 224.00 S.aureus Protein A PCR MRSA (PCR) POC Glucose 186 H 05/08/19 05/08/19 05/08/19 17:45 18:00 21:10 WBC RBC Hgb Hct MCV MCH MCHC RDW Std Deviation RDW Coeff of Radha Plt Count MPV Immature Gran % (Auto) Neut % (Auto) Lymph % (Auto) [place] % (Auto) Eos % (Auto) Baso % (Auto) Absolute Neuts (auto) Absolute Lymphs (auto) Nucleated RBC % Specimen Type Sample Site pH Bicarbonate Actual POC Total CO2 Base Excess O2 Saturation ABG pCO2 ABG pO2 Jimenez Test O2 Delivery Device Blood Gas Notified Whom Sodium Potassium Chloride Carbon Dioxide Anion Gap BUN Creatinine Estim Creat Clear Calc Est GFR (MDRD) Af Amer Est GFR (MDRD) Non-Af BUN/Creatinine Ratio Glucose Hemoglobin A1c Lactic Acid Calcium Magnesium Ammonia Troponin I Urine Color Urine Clarity Urine pH Ur Specific [place] Urine Protein Urine Glucose (UA) Urine Ketones Urine Occult Blood Urine Nitrite Urine Bilirubin Urine Urobilinogen Ur Leukocyte Esterase Urine RBC Urine WBC Ur Squamous Epith Cells Urine Bacteria Urine Mucus Ur Random Sodium 12 Urine Creatinine S.aureus Protein A PCR NEGATIVE MRSA (PCR) Negative POC Glucose 188 H 05/08/19 05/08/19 05/08/19 21:25 21:25 21:25 WBC 9.5 RBC 3.29 L Hgb 9.2 L Hct 28.7 L MCV 87.2 MCH 28.0 MCHC 32.1 RDW Std Deviation 41.6 RDW Coeff of Radha 13.3 Plt Count 145 L MPV 9.7 Immature Gran % (Auto) 0.500 Neut % (Auto) 76.7 H Lymph % (Auto) 12.4 L [place] % (Auto) 10.2 H Eos % (Auto) 0.1 Baso % (Auto) 0.1 Absolute Neuts (auto) 7.3 Absolute Lymphs (auto) 1.18 Nucleated RBC % 0 Specimen Type Sample Site pH Bicarbonate Actual POC Total CO2 Base Excess O2 Saturation ABG pCO2 ABG pO2 Jimenez Test O2 Delivery Device Blood Gas Notified Whom Sodium 133 L Potassium 5.2 H Chloride 99 Carbon Dioxide 26.0 Anion Gap 8 BUN 89 H Creatinine 4.68 H Estim Creat Clear Calc 9.41 Est GFR (MDRD) Af Amer 12 L Est GFR (MDRD) Non-Af 10 L BUN/Creatinine Ratio 19.0 Glucose 191 H Hemoglobin A1c Lactic Acid Calcium 8.6 Magnesium Ammonia 23.0 Troponin I Urine Color Urine Clarity Urine pH Ur Specific [place] Urine Protein Urine Glucose (UA) Urine Ketones Urine Occult Blood Urine Nitrite Urine Bilirubin Urine Urobilinogen Ur Leukocyte Esterase Urine RBC Urine WBC Ur Squamous Epith Cells Urine Bacteria Urine Mucus Ur Random Sodium Urine Creatinine S.aureus Protein A PCR MRSA (PCR) POC Glucose 05/08/19 05/08/19 05/09/19 21:25 21:30 01:00 WBC RBC Hgb Hct MCV MCH MCHC RDW Std Deviation RDW Coeff of Radha Plt Count MPV Immature Gran % (Auto) Neut % (Auto) Lymph % (Auto) [place] % (Auto) Eos % (Auto) Baso % (Auto) Absolute Neuts (auto) Absolute Lymphs (auto) Nucleated RBC % Specimen Type ART Sample Site R Radial pH 7.32 L Bicarbonate Actual 24.6 POC Total CO2 26 Base Excess -2 O2 Saturation 91 L ABG pCO2 47.8 H ABG pO2 66 L Jimenez Test POS O2 Delivery Device Room Air Blood Gas Notified Whom HOSP MD Sodium Potassium Chloride Carbon Dioxide Anion Gap BUN Creatinine Estim Creat Clear Calc Est GFR (MDRD) Af Amer Est GFR (MDRD) Non-Af BUN/Creatinine Ratio Glucose Hemoglobin A1c Lactic Acid Calcium Magnesium Ammonia Troponin I < 0.015 < 0.015 Urine Color Urine Clarity Urine pH Ur Specific [place] Urine Protein Urine Glucose (UA) Urine Ketones Urine Occult Blood Urine Nitrite Urine Bilirubin Urine Urobilinogen Ur Leukocyte Esterase Urine RBC Urine WBC Ur Squamous Epith Cells Urine Bacteria Urine Mucus Ur Random Sodium Urine Creatinine S.aureus Protein A PCR MRSA (PCR) POC Glucose 05/09/19 05/09/19 05/09/19 03:50 03:50 03:50 WBC 7.2 RBC 2.91 L Hgb 8.1 L Hct 25.2 L MCV 86.6 MCH 27.8 MCHC 32.1 RDW Std Deviation 42.1 RDW Coeff of Radha 13.3 Plt Count 118 L MPV 9.4 Immature Gran % (Auto) 0.400 Neut % (Auto) 74.7 H Lymph % (Auto) 13.8 L [place] % (Auto) 10.7 H Eos % (Auto) 0.3 Baso % (Auto) 0.1 Absolute Neuts (auto) 5.4 Absolute Lymphs (auto) 1.00 Nucleated RBC % 0 Specimen Type Sample Site pH Bicarbonate Actual POC Total CO2 Base Excess O2 Saturation ABG pCO2 ABG pO2 Jimenez Test O2 Delivery Device Blood Gas Notified Whom Sodium 134 L Potassium 4.3 Chloride 102 Carbon Dioxide 29.0 Anion Gap 3 L BUN 77 H Creatinine 3.99 H Estim Creat Clear Calc 11.03 Est GFR (MDRD) Af Amer 15 L Est GFR (MDRD) Non-Af 12 L BUN/Creatinine Ratio 19.3 Glucose 128 H Hemoglobin A1c Lactic Acid Calcium 7.5 L Magnesium Ammonia Troponin I < 0.015 Urine Color Urine Clarity Urine pH Ur Specific [place] Urine Protein Urine Glucose (UA) Urine Ketones Urine Occult Blood Urine Nitrite Urine Bilirubin Urine Urobilinogen Ur Leukocyte Esterase Urine RBC Urine WBC Ur Squamous Epith Cells Urine Bacteria Urine Mucus Ur Random Sodium Urine Creatinine S.aureus Protein A PCR MRSA (PCR) POC Glucose Clinical Impression(s) from Imaging Studies Abdomen/Pelvis CT 05/08/19 10:50 IMPRESSION: 1. Findings consistent with cellulitis with inflammatory stranding infiltrating the low anterior abdominal wall panniculus as well as the notably swollen mons pubis and external labia/perineum, greater on the right. Additional edematous/inflammatory stranding also seen in the subcutaneous tissues of the visualized right thigh. 2. Atherosclerotic calcifications noted in the external iliac and visualized femoral arteries. The abdominal aorta is unremarkable. 3. Prior cholecystectomy. 4. Borderline thyromegaly. 5. Nidus of parenchymal calcification in the anterior mid to lower pole of left kidney adjacent to a site of cortical thinning. No hydronephrosis. 6. A few partially calcified retroperitoneal lymph nodes are again noted, a node along the right common iliac artery showing mild grossly previous study, still nonspecific in overall appearance. 7. Degenerative changes of the spine and bilateral sacroiliac joints. Electronically Signed: Jerel Mann MD at 12:34 EST , Service support , Renal Ultrasound 05/08/19 14:58 IMPRESSION: Normal ultrasound of the kidneys. No hydronephrosis. The urinary bladder is not visualized Electronically Signed: Jerel Mann MD at 19:33 EST , Service support , Current Medications Acetaminophen (Tylenol) 650 mg PO Q6H PRN PRN PRN Reason: Non-cardiac pain () Al Hydroxide/Mg Hydroxide (Mylanta Ii) 15 - 30 ml PO Q4H PRN PRN PRN Reason: INDIGESTION Albuterol Sulfate (Ventolin Aerosols) 2.5 mg INHALATION Q2H PRN PRN PRN Reason: dyspnea, wheezing Calamine/Phenol (Calmoseptine Ointment) 1 applic TOPICAL BID [facility]; Protocol Last Admin: 05/08/19 21:55 Dose: 1 applicatio Documented by: Dextrose (D50w Syringe) 0 gm IV X1 PRN; Protocol PRN Reason: Hypoglycemia Gabapentin (Neurontin) 100 mg PO BIDCM [facility] Last Admin: 05/08/19 18:23 Dose: 100 mg Documented by: Glucagon () 1 mg IM .X1 PRN PRN Reason: Hypoglycemia Hydralazine HCl (Apresoline Iv) 10 mg IV Q4H PRN PRN PRN Reason: SBP > 160 Sodium Chloride () 1,000 mls @ 150 mls/hr IV .Q6H40M [facility] Last Admin: 05/08/19 23:53 Dose: 150 mls/hr Documented by: Dextrose (Dextrose 10%-Water) 250 mls @ 999 mls/hr IV .Q16M PRN; Protocol PRN Reason: HYPOGLYCEMIA Last Infusion: 05/08/19 14:11 Dose: Infused Documented by: Piperacillin Sod/Tazobactam (Sod 3.375 gm/ Sodium Chloride) 50 mls @ 12.5 mls/hr IV Q12 [facility] Last Infusion: 05/08/19 22:34 Dose: Infused Documented by: Vancomycin IV Pharmacy to Dose (1 ea/ Sodium Chloride) 500 mls @ 250 mls/hr IV X1 PRN; Protocol PRN Reason: Rx to Dose Norepinephrine Bitartrate 8 mg (/ Sodium Chloride) 250 mls @ 9.375 mls/hr CONT INF .[id number] [facility]; Protocol Last Admin: 05/09/19 00:47 Dose: Not Given Documented by: Insulin Human Lispro (Humalog Kwikpen (Bkc)) 0 unit SC ACHS [facility]; Protocol Last Admin: 05/08/19 21:57 Dose: Not Given Documented by: Magnesium Hydroxide (Milk Of Magnesia) 30 ml PO DAILY PRN PRN Reason: Constipation Melatonin (Melatonin) 3 mg PO QHS PRN PRN PRN Reason: INSOMNIA Morphine Sulfate () 1 - 2 mg IV Q4H PRN PRN PRN Reason: Pain Score 1-10/10 Nystatin (Mycostatin Powder) 1 applic TOPICAL TID [facility]; Protocol Last Admin: 05/08/19 21:57 Dose: 1 applicatio Documented by: Ondansetron HCl (Zofran) 4 mg IV Q8H PRN PRN PRN Reason: NAUSEA/VOMITING Oxycodone HCl (Oxyir) 10 mg PO Q4H PRN PRN PRN Reason: Pain Score 6-10/10 Pantoprazole Sodium (Protonix) 20 mg PO BID [facility] Last Admin: 05/08/19 21:58 Dose: Not Given Documented by: Psyllium Hydrophilic Mucilloid (Metamucil) 1 packet PO DAILY PRN PRN PRN Reason: Constipation Senna/Docusate Sodium (Senokot-S, Kiana-Colace) 2 tablet PO BID PRN PRN PRN Reason: Constipation Sodium Chloride () 10 - 40 ml IV UD PRN PRN Reason: SALINE FLUSH Assessment/Plan Active and Suspected Problems (Last Reviewed 04/08/19 @ 08:50 by Emi Keene) Septic shock (Acute) Acute renal failure (Acute) Hyperkalemia (Acute) Sepsis (Acute) Panniculitis (Acute) JH (acute kidney injury) (Acute) Hyperkalemia (Acute) Hyponatremia (Acute) RECOMMENDATIONS: 1. Stop Morphine (given renal insufficiency), along with oxycodone and melatonin. 2. Start BIPAP 14/6 with naps and nightly. 3. Continue empiric antimicrobials. 4. Await plastic surgery evaluation. 5. Recommend outpatient dedicated polysomnogram to evaluate for obstructive sleep apnea. IMPRESSIONS: 1. Severe sepsis likely secondary to panniculitis Continue empiric antimicrobial coverage, pending infectious work-up. Consultation to plastic surgery is currently pending. 2. Acute kidney injury/hyperkalemia Likely prerenal in etiology. Creatinine is improving with volume expansion. Continue medical management of hyperkalemia. 3. Metabolic encephalopathy The patient was initially transferred to the medical intensive care unit in the setting of decreased responsiveness, which has improved with stabilization of hemodynamics and avoidance of sedating medications. In addition, the patient likely has underlying obstructive sleep apnea and/or alveolar hypoventilation secondary to obesity. Accordingly, she has been placed on nocturnal BiPAP therapy empirically. 4. Suspected sleep disordered breathing The patient did have audible snoring and witnessed apneic events. I would recommend an outpatient polysomnogram be completed with initiation of nocturnal Pap therapy, if clinically indicated. For now, the patient will remain on BiPAP therapy while admitted to the hospital with naps and nightly. 5. Morbid obesity/hypertension/diabetes mellitus/GERD/depression/chronic pain syndrome/paroxysmal atrial fibrillation Complicates care, management, recovery and prognosis. Continue home medications as indicated. Home anticoagulation regimen is currently on hold, should surgical intervention be required. This note was generated with [employer] dictation software. It may contain incorrect words, spelling, and punctuation that were not noted in checking the note before signing. Code Visit Inpatient E&M: 30164 Init Hosp L3
[2019-05-09] MEDS: 0.9% Normal Saline 1,000 ML 150 ML IV ×3 (06:43→20:05)
[2019-05-09] MEDS: Nystatin Powder 15gm Bottle 1 APPLIC TOPICAL ×3 (07:30→21:55)
[2019-05-09 08:06] LABS: Bedside Glucose 96 mg/dL (70-110)
[2019-05-09] MEDS: Gabapentin 100 MG Capsule PO ×2 (11:48→18:35)
[2019-05-09] MEDS: Pantoprazole Sodium 20 MG Tablet PO ×2 (11:48→21:58)
[2019-05-09] MEDS: Menthol/Lanolin/Calamine/Znox 113 GM Tube 1 APPLIC TOPICAL ×2 (11:48→21:55)
--- NOTE | 2019-05-09 12:06 | CON.PCM_ITS ---
Consultation - Renal 05/09/19 PCP/ Referring MD: Requesting physician: [] Primary care physician: Brittany Sorenson MD Reason for Consultation:: HJ - History of Present Illness History of Present Illness: The patient is a 64 year old F who presented to the emergency department on May 08 with generalized malaise and fatigue. The patient is wheelchair- bound and lives alone at home. She slid off her wheelchair because of her heavy pannus. She was not on the floor for long period of time. She complained of generalized weakness and lightheadedness but denied syncope. Denied any nausea, vomiting, chest pain, shortness of breath, cough. She was able to call her sister to come visit her and call the squad for not feeling well in general. She is admitted for panniculitis. She was hypotensive with altered mental status requiring transfer from PCU to intensive care unit. She did not require any pressors since she responded to IV fluid resuscitation. She is an unreliable historian but alert and oriented x3. She denies any change in her urine output however her urine is very dark anai. Creatinine was elevated at 5.27 on admission improved to 3.99 with IV hydration. Her baseline creatinine 0.76 on December 24, 2017. Potassium was elevated at 6.2 on admission improved with Kayexalate. She denied any NSAID use, potassium supplements, or consumption of foods high in potassium. CT abdomen/pelvis revealed findings consistent with cellulitis of the low anterior abdominal wall. She was started on IV antibiotic therapy with vancomycin and PIP/Tazo. Blood culture is no growth so far. Dr. Valle was consulted for her panniculitis. He recommended transfer to tertiary care center for further management. Currently she is in intensive care unit and remains hemodynamically stable wit hout ever needing vasopressor support. - Allergies Allergies: Allergies amoxicillin Adverse Reaction (Verified 05/08/19 10:24) Other latex Adverse Reaction (Verified 05/08/19 10:24) Other - Current Medications Current Medications: Current Medications Acetaminophen (Tylenol) 650 mg PO Q6H PRN PRN PRN Reason: Non-cardiac pain (4-02/12) Al Hydroxide/Mg Hydroxide (Mylanta Ii) 15 - 30 ml PO Q4H PRN PRN PRN Reason: INDIGESTION Albuterol Sulfate (Ventolin Aerosols) 2.5 mg INHALATION Q2H PRN PRN PRN Reason: dyspnea, wheezing Calamine/Phenol (Calmoseptine Ointment) 1 applic TOPICAL BID [facility]; Protocol Last Admin: 05/09/19 11:48 Dose: 1 applicatio Documented by: Dextrose (D50w Syringe) 0 gm IV X1 PRN; Protocol PRN Reason: Hypoglycemia Gabapentin (Neurontin) 100 mg PO BIDCM [facility] Last Admin: 05/09/19 11:48 Dose: 100 mg Documented by: Glucagon () 1 mg IM .X1 PRN PRN Reason: Hypoglycemia Hydralazine HCl (Apresoline Iv) 10 mg IV Q4H PRN PRN PRN Reason: SBP > 160 Sodium Chloride () 1,000 mls @ 150 mls/hr IV .Q6H40M [facility] Last Admin: 05/09/19 06:43 Dose: 150 mls/hr Documented by: Dextrose (Dextrose 10%-Water) 250 mls @ 999 mls/hr IV .Q16M PRN; Protocol PRN Reason: HYPOGLYCEMIA Last Infusion: 05/08/19 14:11 Dose: Infused Documented by: Piperacillin Sod/Tazobactam (Sod 3.375 gm/ Sodium Chloride) 50 mls @ 12.5 mls/hr IV Q12 [facility] Last Admin: 05/09/19 11:49 Dose: 12.5 mls/hr Documented by: Vancomycin IV Pharmacy to Dose (1 ea/ Sodium Chloride) 500 mls @ 250 mls/hr IV X1 PRN; Protocol PRN Reason: Rx to Dose Insulin Human Lispro (Humalog Kwikpen (Bkc)) 0 unit SC ACHS [facility]; Protocol Last Admin: 05/09/19 11:48 Dose: Not Given Documented by: Magnesium Hydroxide (Milk Of Magnesia) 30 ml PO DAILY PRN PRN Reason: Constipation Nystatin (Mycostatin Powder) 1 applic TOPICAL TID [facility]; Protocol Last Admin: 05/09/19 07:30 Dose: 1 applicatio Documented by: Ondansetron HCl (Zofran) 4 mg IV Q8H PRN PRN PRN Reason: NAUSEA/VOMITING Pantoprazole Sodium (Protonix) 20 mg PO BID [facility] Last Admin: 05/09/19 11:48 Dose: 20 mg Documented by: Psyllium Hydrophilic Mucilloid (Metamucil) 1 packet PO DAILY PRN PRN PRN Reason: Constipation Senna/Docusate Sodium (Senokot-S, Kiana-Colace) 2 tablet PO BID PRN PRN PRN Reason: Constipation Sodium Chloride () 10 - 40 ml IV UD PRN PRN Reason: SALINE FLUSH - Past Medical History Past Medical History (Chronic Problems): Chronic Problems (Last Reviewed 04/08/19 @ 08:50 by Emi Keene) GERD (gastroesophageal reflux disease) (Chronic) Anxiety and depression (Chronic) Chronic pain syndrome (Chronic) Morbid obesity (Chronic) Paroxysmal atrial fibrillation (Chronic) Essential (primary) hypertension (Chronic) 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 - Social History Smoking Status: Never smoker Alcohol: None Drugs: None - Family History Paternal Family History: Family History (Last Reviewed 04/08/19 @ 08:50 by Emi Keene) Father Diabetes Mother Arthritis Hypertension Heart disease Sister Arthritis Diabetes Heart disease Hypertension High cholesterol History Items: Diabetes Maternal Family History: Family History (Last Reviewed 04/08/19 @ 08:50 by Emi Keene) Father Diabetes Mother Arthritis Hypertension Heart disease Sister Arthritis Diabetes Heart disease Hypertension High cholesterol History Items: High Cholesterol, Heart Disease, Hypertension Review of Systems Constitutional: Reports: Weakness, Fatigue. Denies: Anorexia, Chills, Fever Cardiovascular: Denies: Chest Pain, Edema, Syncope Respiratory: Denies: Cough Gastrointestinal: Denies: Abdominal Pain, Nausea, Vomiting Genitourinary: Reports: - - Denied change in urine output. Denies: Dysuria Musculoskeletal: Reports: - - Bilateral lower extremity weakness chronic, - - DJD Neurological: Reports: Balance problems, - - Wheelchair-bound from her morbid obesity. Denies: Tremor, Seizures Psychiatric: Reports: Anxiety, Depression - States mom in TCU rehab, states having a lot of stress with home dynamics Hematologic/ Lymphatic: Denies: Anemia, Hx of blood clot Patient Problems: Active and Suspected Problems (Last Reviewed 04/08/19 @ 08:50 by Emi Keene) Skin necrosis (Acute) Pressure injury of right perineal ischial region, unstageable (Acute) Pressure injury of left perineal ischial region, unstageable (Acute) Septic shock (Acute) Acute renal failure (Acute) Hyperkalemia (Acute) Sepsis (Acute) Panniculitis (Acute) JH (acute kidney injury) (Acute) Hyperkalemia (Acute) Hyponatremia (Acute) - Physical Exam Vitals/I&O's: Vital Signs Temp Pulse Resp BP Pulse Ox 97.4 F L 76 24 H 140/95 H 100 05/09/19 08:00 05/09/19 10:45 05/09/19 10:45 05/09/19 08:00 05/09/19 10:45 Oxygen Flow Rate (L/min) 2 Oxygen Delivery Method Bi-pap Weight: 140 kg Body Mass Index (BMI) 55.2 Finger Stick Blood Glucose 236 Intake and Output for Last 24 Hours 05/07/19 05/08/19 05/09/19 23:59 23:59 23:59 Intake Total 2851.55 / 2851.55 1999 Output Total 250 / 250 450 / 450 Balance 2601.55 / 2601.55 1550 / 1550 General: Alert, Oriented x3, Cooperative, No apparent distress HEENT: PERRLA, EOMI Oral: Dry Mucosa Neck: Supple Lungs: Clear to auscultation Cardiovascular: Regular rate, No rub noted Abdomen: Bowel Sounds Present, Soft, Non Tender, Distended, Obese - Super, - - Panniculitis Extremities: No edema Skin: - - Petechial rash right ankle, SCDs applied Musculoskeletal: - - Bilateral lower extremity weakness, wheelchair-bound at home Neurological: - - No tremor Psych/Mental Status: Normal Affect, Appropriate, Alert and oriented to time, place, person, mood and affect Microbiology Past 72 Hours 05/08/19 18:00 Wound - Abdominal Gram Stain - Final Laboratory Results 05/08/19 11:05: Magnesium 2.3 05/08/19 11:05: Hemoglobin A1c 7.0 H 05/08/19 13:40: Lactic Acid 1.5 05/08/19 15:25: Sodium 129 L, Potassium 5.4 H, Chloride 97 L, Carbon Dioxide 24.0, Anion Gap 8, BUN 89 H, Creatinine 4.98 H, Estim Creat Clear Calc 8.84, Est GFR (MDRD) Af Amer 11 L, Est GFR (MDRD) Non-Af 9 L, BUN/Creatinine Ratio 17.9, Glucose 197 H, Calcium 9.0 05/08/19 16:52: POC Glucose 186 H 05/08/19 17:45: Urine Color Yellow, Urine Clarity Cloudy, Urine pH 5.0, Ur Specific [place] 1.025, Urine Protein 30 H, Urine Glucose (UA) Normal, Urine Ketones 5 H, Urine Occult Blood 150 H, Urine Nitrite Negative, Urine Bilirubin 1 H, Urine Urobilinogen 1 H, Ur Leukocyte Esterase 25 H, Urine RBC 0 SEEN, Urine WBC 0-5 SEEN, Ur Squamous Epith Cells 0-5 SEEN, Urine Bacteria 3+, Urine Mucus 0 SEEN 05/08/19 17:45: Urine Creatinine 224.00 05/08/19 17:45: Ur Random Sodium 12 05/08/19 18:00: S.aureus Protein A PCR NEGATIVE, MRSA (PCR) Negative 05/08/19 21:10: POC Glucose 188 H 05/08/19 21:25: WBC 9.5, RBC 3.29 L, Hgb 9.2 L, Hct 28.7 L, MCV 87.2, MCH 28.0, MCHC 32.1, RDW Std Deviation 41.6, RDW Coeff of Radha 13.3, Plt Count 145 L, MPV 9.7, Immature Gran % (Auto) 0.500, Neut % (Auto) 76.7 H, Lymph % (Auto) 12.4 L, Walsh % (Auto) 10.2 H, Eos % (Auto) 0.1, Baso % (Auto) 0.1, Absolute Neuts (auto) 7.3, Absolute Lymphs (auto) 1.18, Nucleated RBC % 0 05/08/19 21:25: Sodium 133 L, Potassium 5.2 H, Chloride 99, Carbon Dioxide 26.0, Anion Gap 8, BUN 89 H, Creatinine 4.68 H, Estim Creat Clear Calc 9.41, Est GFR (MDRD) Af Amer 12 L, Est GFR (MDRD) Non-Af 10 L, BUN/Creatinine Ratio 19.0, Glucose 191 H, Calcium 8.6 05/08/19 21:25: Ammonia 23.0 05/08/19 21:25: Troponin I < 0.015 05/08/19 21:30: Specimen Type ART, Sample Site R Radial, pH 7.32 L, Bicarbonate Actual 24.6, POC Total CO2 26, Base Excess -2, O2 Saturation 91 L, ABG pCO2 47.8 H, ABG pO2 66 L, Jimenez Test POS, O2 Delivery Device Room Air, Blood Gas Notified Whom EDUARDO FAGAN 05/09/19 01:00: Troponin I < 0.015 05/09/19 03:50: WBC 7.2, RBC 2.91 L, Hgb 8.1 L, Hct 25.2 L, MCV 86.6, MCH 27.8, MCHC 32.1, RDW Std Deviation 42.1, RDW Coeff of Radha 13.3, Plt Count 118 L, MPV 9.4, Immature Gran % (Auto) 0.400, Neut % (Auto) 74.7 H, Lymph % (Auto) 13.8 L, Walsh % (Auto) 10.7 H, Eos % (Auto) 0.3, Baso % (Auto) 0.1, Absolute Neuts (auto) 5.4, Absolute Lymphs (auto) 1.00, Nucleated RBC % 0 05/09/19 03:50: Sodium 134 L, Potassium 4.3, Chloride 102, Carbon Dioxide 29.0, Anion Gap 3 L, BUN 77 H, Creatinine 3.99 H, Estim Creat Clear Calc 11.03, Est GFR (MDRD) Af Amer 15 L, Est GFR (MDRD) Non-Af 12 L, BUN/Creatinine Ratio 19.3, Glucose 128 H, Calcium 7.5 L 05/09/19 03:50: Troponin I < 0.015 05/09/19 07:43: POC Glucose 96 Clinical Impression(s) from Imaging Studies Abdomen/Pelvis CT 05/08/19 10:50 IMPRESSION: 1. Findings consistent with cellulitis with inflammatory stranding infiltrating the low anterior abdominal wall panniculus as well as the notably swollen mons pubis and external labia/perineum, greater on the right. Additional edematous/inflammatory stranding also seen in the subcutaneous tissues of the visualized right thigh. 2. Atherosclerotic calcifications noted in the external iliac and visualized femoral arteries. The abdominal aorta is unremarkable. 3. Prior cholecystectomy. 4. Borderline thyromegaly. 5. Nidus of parenchymal calcification in the anterior mid to lower pole of left kidney adjacent to a site of cortical thinning. No hydronephrosis. 6. A few partially calcified retroperitoneal lymph nodes are again noted, a node along the right common iliac artery showing mild grossly previous study, still nonspecific in overall appearance. 7. Degenerative changes of the spine and bilateral sacroiliac joints. Electronically Signed: Jerel Mann MD at 12:34 EST , Service support , Renal Ultrasound 05/08/19 14:58 IMPRESSION: Normal ultrasound of the kidneys. No hydronephrosis. The urinary bladder is not visualized Electronically Signed: Jerel Mann MD at 19:33 EST , Service support , Current Medications Acetaminophen (Tylenol) 650 mg PO Q6H PRN PRN PRN Reason: Non-cardiac pain () Al Hydroxide/Mg Hydroxide (Mylanta Ii) 15 - 30 ml PO Q4H PRN PRN PRN Reason: INDIGESTION Albuterol Sulfate (Ventolin Aerosols) 2.5 mg INHALATION Q2H PRN PRN PRN Reason: dyspnea, wheezing Calamine/Phenol (Calmoseptine Ointment) 1 applic TOPICAL BID [facility]; Protocol Last Admin: 05/09/19 11:48 Dose: 1 applicatio Documented by: Dextrose (D50w Syringe) 0 gm IV X1 PRN; Protocol PRN Reason: Hypoglycemia [facility] Last Admin: 05/09/19 11:48 Dose: 100 mg Documented by: Glucagon () 1 mg IM .X1 PRN PRN Reason: Hypoglycemia Hydralazine HCl (Apresoline Iv) 10 mg IV Q4H PRN PRN PRN Reason: SBP > 160 Sodium Chloride () 1,000 mls @ 150 mls/hr IV .Q6H40M [facility] Last Admin: 05/09/19 06:43 Dose: 150 mls/hr Documented by: Dextrose (Dextrose 10%-Water) 250 mls @ 999 mls/hr IV .Q16M PRN; Protocol PRN Reason: HYPOGLYCEMIA Last Infusion: 05/08/19 14:11 Dose: Infused Documented by: Piperacillin Sod/Tazobactam (Sod 3.375 gm/ Sodium Chloride) 50 mls @ 12.5 mls/hr IV Q12 [facility] Last Admin: 05/09/19 11:49 Dose: 12.5 mls/hr Documented by: Vancomycin IV Pharmacy to Dose (1 ea/ Sodium Chloride) 500 mls @ 250 mls/hr IV X1 PRN; Protocol PRN Reason: Rx to Dose Insulin Human Lispro (Humalog Kwikpen (Bkc)) 0 unit SC ACHS [facility]; Protocol Last Admin: 05/09/19 11:48 Dose: Not Given Documented by: Magnesium Hydroxide (Milk Of Magnesia) 30 ml PO DAILY PRN PRN Reason: Constipation Nystatin (Mycostatin Powder) 1 applic TOPICAL TID [facility]; Protocol Last Admin: 05/09/19 07:30 Dose: 1 applicatio Documented by: Ondansetron HCl (Zofran) 4 mg IV Q8H PRN PRN PRN Reason: NAUSEA/VOMITING Pantoprazole Sodium (Protonix) 20 mg PO BID [facility] Last Admin: 05/09/19 11:48 Dose: 20 mg Documented by: Psyllium Hydrophilic Mucilloid (Metamucil) 1 packet PO DAILY PRN PRN PRN Reason: Constipation Senna/Docusate Sodium (Senokot-S, Kiana-Colace) 2 tablet PO BID PRN PRN PRN Reason: Constipation Sodium Chloride () 10 - 40 ml IV UD PRN PRN Reason: SALINE FLUSH Assessment/Plan All Active Problems (Last Reviewed 04/08/19 @ 08:50 by Emi eKene) Skin necrosis (Acute) Pressure injury of right perineal ischial region, unstageable (Acute) Pressure injury of left perineal ischial region, unstageable (Acute) Septic shock (Acute) Acute renal failure (Acute) Hyperkalemia (Acute) Sepsis (Acute) Panniculitis (Acute) JH (acute kidney injury) (Acute) Hyperkalemia (Acute) Hyponatremia (Acute) ARF (acute renal failure) (Resolved) Acute cystitis (Resolved) Decubitus ulcer of left ischium, stage 4 (Resolved) Hyperkalemia (Resolved) Hypoglycemia associated with type 2 diabetes mellitus (Resolved) Open wound of umbilical region (Resolved) Pressure sore of left ischium, unstageable (Resolved) Rhabdomyolysis (Resolved) Right ischial pressure sore, stage 2 (Resolved) Right ischial pressure sore, stage 3 (Resolved) Skin necrosis (Resolved) 1. Acute kidney injury likely due to prerenal event, dehydration. Urine sodium low at 12 with current urine creatinine at 224. Creatinine improved from 5.2 down to 3.99 today with IV hydration. Baseline creatinine 0.76 from December 24, 2017. Continue with IV fluids. No urgent need for hemodialysis at this time. Renal ultrasound without hydronephrosis, essentially unremarkable. 2. Sepsis syndrome with hypotension responsive to fluid resuscitation. Stable without requiring pressor support. Blood culture no growth so far. 3. leukocytosis from acute panniculitis. Plan for transfer to tertiary care center for further management. Currently on IV antibiotic therapy. Blood culture no growth so far. on Renal dose antibiotic therapy 4. Hyperkalemia due to JH resolved with medical management. Avoid NSAIDs 5. Anxiety/depression primary service management 6. Hyponatremia likely due to dehydration. 7. Super morbid obesity 8. debilitation wheelchair-bound chronically at home alone. 9. Hx Pafib on anticoagulation 70 min spent on extensive chart review with time spent with patient evaluation and discussion with nursing staff
[2019-05-09 12:11] LABS: Bedside Glucose 114 mg/dL (70-110)
--- NOTE | 2019-05-09 13:30 | CON.PCM_ITS ---
Reason for Consult Date of Consultation: 05/09/19 Reason for Consultation: Massive abdominal panniculus with panniculitis. REFERRING PHYSICIAN: Dr. Castro. DNA SEQUENCING ASSOCIATE: Dr. Valle. History of Present Illness: The patient is a 64 y/o F who was admitted with increasing pain and redness and swelling in her massive panniculus with some intermittent bleeding. She is wheelchair bound from her weight and has fallen out of her chair a few times over the last 2 weeks. She complained of worsening fatigue, malaise, and decreased appetite. She denied fever. Her WBC in ED was 15.2. Potassium was 6.2. Creatinine was 5.21. CT abdomen and pelvis was done with findings consistent with cellulitis but inflammatory stranding infiltrating the low anterior abdominal wall panniculus as well as a notably swollen mons pubis and external labia/perineum greater on the right with additional edematous and inflammatory stranding also seen in the subcutaneous tissues of visualized right thigh, atherosclerotic calcifications noted in the external iliac and visualized femoral arteries with abdominal aorta unremarkable, nidus of parenchymal calcification in the anterior mid to lower pole of the left kidney. EKG w/ SR with minimal peaked T-waves. She was given Clindamycin in the ED. Upon admission she was started on Vancomycin and Zosyn. Wound culture shows Gram negative virginie and Gram positive cocci. Today, her WBC has improved to 7.2. Potassium improved to 4.3. Creatinine improved to 3.99. Last night, she had hypotension and was transferred to the ICU. I saw the patient in February, to discuss surgical options for her massive panniculus. CT scan on 03/05/19 showed no evidence of abdominal or pelvic wall hernia. Her surgery was initially scheduled in March,. It was cancelled because of uncontrolled atrial fibrillation. Cardiology consult was recommended. She had an appointment with Cardiology on April 08, 2019 and she did not show for it. It was rescheduled for May 20, 2019. She told the ED that she had surgery scheduled for panniculectomy on May 19, 2019. That was not true as she is still waiting for medical clearance. Today I am asked to evaluate this patient for surgical options for treatment. 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) Eliquis for atrial fibrillation Abdominal panniculus (Chronic) Edema of abdominal wall (Chronic) Intertrigo (Chronic) abdominal wall skin crease intertrigo Panniculitis (Chronic) Medical History: Medical History (Last Reviewed 04/08/19 @ 08:50 by Emi Keene) Morbid obesity (Chronic) E66.01 Paroxysmal atrial fibrillation (Chronic) I48.0 Essential (primary) hypertension (Chronic) I10 Hyperlipidemia (Chronic) E78.5 Abdominal panniculus (Chronic) E65 Edema of abdominal wall (Chronic) R60.0 Intertrigo (Chronic) L30.4 abdominal wall skin crease intertrigo Panniculitis (Chronic) M79.3 Abdominal wall pain in both lower quadrants R10.31, R10.32 Anemia D64.9 Arthritis M19.90 Atrial fibrillation with rapid ventricular response Onset Date: 12/2017 I48.91 Back problem M53.9 Breast lump in female N63.0 Depression F32.9 Difficulty balancing when standing R26.89 and when ambulating Excessive weight loss R63.4 70 lbs over last year Late effect of medical and surgical care complication T88.9XXS painful insulin nodules abdominal wall Neuropathy G62.9 Normochromic normocytic anemia D64.9 Osteoarthritis M19.90 Panniculitis M79.3 Pressure sore of left ischium, unstageable L89.320 Pressure ulcer L89.90 Right ischial pressure sore, stage 2 L89.312 Thrombocytopenia D69.6 Type 2 diabetes mellitus E11.9 Umbilical hernia K42.9 History of blood transfusion Z92.89 Kidney failure N19 Rupture of hernia K46.[address] OAKLEY UTI (urinary tract infection) N39.0 Allergies amoxicillin Adverse Reaction (Verified 05/08/19 10:24) Other latex Adverse Reaction (Verified 05/08/19 10:24) Other Home Medications: Ambulatory Orders Medication Instructions Recorded Citalopram [Celexa] 20 mg PO DAILY 07/10/16 Gabapentin [Neurontin] 300 mg PO BID 07/22/17 Apixaban [Eliquis] 5 mg PO BID tab 12/24/17 Morphine Sulfate [Ms Contin] 60 mg PO BID 2 Days #4 tablet.er 12/24/17 Menthol/Lanolin/Calamine/Znox 1 applic TOPICAL BID 05/08/19 [Calmoseptine Ointment] Metoprolol Tartrate 100 mg PO DINNER 05/08/19 Metoprolol Tartrate [Lopressor 50 mg PO BREAKFAST 05/08/19 (beta tristen)] Tizanidine HCl 2 - 4 mg PO BID 05/08/19 Surgical History: Surgical History (Last Reviewed 04/08/19 @ 08:50 by Emi Keene) Bilateral ischial wound debridement History of herniorrhaphy Z98.890, Z87.19 Hx of cholecystectomy Z90.49 Surgical History: cholecystectomy, herniorrhaphy, - - Excision left ischial pressure sore into the muscle, Stage IV, and excision right ischial pressure sore into the subcutaneous tissue, Stage III, with 6 cm layered closure - 07/25/17 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, Depression 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 Lives: Alone Smoking Status: Never smoker Tobacco Use: Non-smoker Alcohol: None Drugs: None - *Family History Paternal Family History: Family History (Last Reviewed 04/08/19 @ 08:50 by Emi Keene) Father Diabetes Mother Arthritis Hypertension Heart disease Sister Arthritis Diabetes Heart disease Hypertension High cholesterol History Items: Diabetes Maternal Family History: Family History (Last Reviewed 04/08/19 @ 08:50 by Emi Keene) Father Diabetes Mother Arthritis Hypertension Heart disease Sister Arthritis Diabetes Heart disease Hypertension High cholesterol History Items: High Cholesterol, Heart Disease, Hypertension Review of Systems Comment: REVIEW OF SYSTEMS. General - Denies fever, fatigue, and weight loss. Eyes - Denies cataracts and glaucoma. ENT - Denies nasal congestion and sore throat. Endocrine - Denies excessive thirst and urination. Skin - Denies suspicious lesions and skin cancer. Has abdominal wall skin crease intertrigo. Has painful insulin nodules abdominal wall. Musculoskeletal - Has joint pain, joint stiffness, weakness of muscles and joints, back pain, and arthritis. Neuro - Denies headaches. Cardiovascular - Denies chest pain, fatigue, and shortness of breath with exertion. Psych - Denies anxiety. Has depression. Respiratory - Denies chronic cough and shortness of breath. Gastrointestinal - Denies nausea, vomiting, diarrhea, and constipation. Hematologic - Denies abnormal bruising and bleeding. Genitourinary - Denies hematuria and urinary frequency. Has some incontinence. Has history of kidney failure. Patient Problems: Active and Suspected Problems (Last Reviewed 04/08/19 @ 08:50 by Emi Keene) Skin necrosis (Acute) Pressure injury of right perineal ischial region, unstageable (Acute) Pressure injury of left perineal ischial region, unstageable (Acute) Septic shock (Acute) Acute renal failure (Acute) Hyperkalemia (Acute) Sepsis (Acute) Panniculitis (Acute) JH (acute kidney injury) (Acute) Hyperkalemia (Acute) Hyponatremia (Acute) - Physical Exam Vitals/I&O's: PHYSICAL EXAMINATION General - Alert and Oriented. Mildly fatigued appearance, no acute distress. HEENT - PERRL. EOMI. Throat is clear. Neck - Supple and nontender. No cervical adenopathy. Lungs - Diminished breath sounds throughout. Heart - Regular rate and rhythm. Abdomen - [place] obese. Massive abdominal panniculus with panniculitis. Increased redness. Dependent edema in the panniculus that is tender to palpation, worse on the right. Has a lower midline scar from the ventral hernia repair. Abdominal wall skin crease intertrigo present with abrasions. Extremities - No clubbing or cyanosis. Pitting edema in lower extremities. Skin - there is evidence of pressure injury to the bilateral ischial areas with extension to the perineal area. Skin necrosis present. Neuro - CN II-XII grossly intact. Psych - Affect appears fatigued, no acute evidence of depressive or anxiety feelings. Vital Signs Temp Pulse Resp BP Pulse Ox 97.4 F L 76 24 H 140/95 H 100 05/09/19 08:00 05/09/19 10:45 05/09/19 10:45 05/09/19 08:00 05/09/19 10:45 Oxygen Flow Rate (L/min) 2 Oxygen Delivery Method Bi-pap Weight: 308 lb 10.354 oz Body Mass Index (BMI) 55.2 Finger Stick Blood Glucose 236 Intake and Output for Last 24 Hours 05/07/19 05/08/19 05/09/19 23:59 23:59 23:59 Intake Total 2851.55 / 2851.55 1999 Output Total 250 / 250 450 / 450 Balance 2601.55 / 2601.55 1550 / 1550 Microbiology Past 72 Hours 05/08/19 18:00 Wound - Abdominal Gram Stain - Final 05/08/19 18:00 Wound - Abdominal Wound Culture - Preliminary Gram negative virginie Gram positive organism Laboratory Results 05/08/19 11:05: Magnesium 2.3 05/08/19 11:05: Hemoglobin A1c 7.0 H 05/08/19 13:40: Lactic Acid 1.5 05/08/19 15:25: Sodium 129 L, Potassium 5.4 H, Chloride 97 L, Carbon Dioxide 24.0, Anion Gap 8, BUN 89 H, Creatinine 4.98 H, Estim Creat Clear Calc 8.84, Est GFR (MDRD) Af Amer 11 L, Est GFR (MDRD) Non-Af 9 L, BUN/Creatinine Ratio 17.9, Glucose 197 H, Calcium 9.0 05/08/19 16:52: POC Glucose 186 H 05/08/19 17:45: Urine Color Yellow, Urine Clarity Cloudy, Urine pH 5.0, Ur Specific [place] 1.025, Urine Protein 30 H, Urine Glucose (UA) Normal, Urine Ketones 5 H, Urine Occult Blood 150 H, Urine Nitrite Negative, Urine Bilirubin 1 H, Urine Urobilinogen 1 H, Ur Leukocyte Esterase 25 H, Urine RBC 0 SEEN, Urine WBC 0-5 SEEN, Ur Squamous Epith Cells 0-5 SEEN, Urine Bacteria 3+, Urine Mucus 0 SEEN 05/08/19 17:45: Urine Creatinine 224.00 05/08/19 17:45: Ur Random Sodium 12 05/08/19 18:00: S.aureus Protein A PCR NEGATIVE, MRSA (PCR) Negative 05/08/19 21:10: POC Glucose 188 H 05/08/19 21:25: WBC 9.5, RBC 3.29 L, Hgb 9.2 L, Hct 28.7 L, MCV 87.2, MCH 28.0, MCHC 32.1, RDW Std Deviation 41.6, RDW Coeff of Radha 13.3, Plt Count 145 L, MPV 9.7, Immature Gran % (Auto) 0.500, Neut % (Auto) 76.7 H, Lymph % (Auto) 12.4 L, [place] % (Auto) 10.2 H, Eos % (Auto) 0.1, Baso % (Auto) 0.1, Absolute Neuts (auto) 7.3, Absolute Lymphs (auto) 1.18, Nucleated RBC % 0 05/08/19 21:25: Sodium 133 L, Potassium 5.2 H, Chloride 99, Carbon Dioxide 26.0, Anion Gap 8, BUN 89 H, Creatinine 4.68 H, Estim Creat Clear Calc 9.41, Est GFR (MDRD) Af Amer 12 L, Est GFR (MDRD) Non-Af 10 L, BUN/Creatinine Ratio 19.0, Glucose 191 H, Calcium 8.6 05/08/19 21:25: Ammonia 23.0 05/08/19 21:25: Troponin I < 0.015 05/08/19 21:30: Specimen Type ART, Sample Site R Radial, pH 7.32 L, Bicarbonate Actual 24.6, POC Total CO2 26, Base Excess -2, O2 Saturation 91 L, ABG pCO2 47.8 H, ABG pO2 66 L, Jimenez Test POS, O2 Delivery Device Room Air, Blood Gas Notified Whom HOSP 05/09/19 01:00: Troponin I < 0.015 05/09/19 03:50: WBC 7.2, RBC 2.91 L, Hgb 8.1 L, Hct 25.2 L, MCV 86.6, MCH 27.8, MCHC 32.1, RDW Std Deviation 42.1, RDW Coeff of Radha 13.3, Plt Count 118 L, MPV 9.4, Immature Gran % (Auto) 0.400, Neut % (Auto) 74.7 H, Lymph % (Auto) 13.8 L, [place] % (Auto) 10.7 H, Eos % (Auto) 0.3, Baso % (Auto) 0.1, Absolute Neuts (auto) 5.4, Absolute Lymphs (auto) 1.00, Nucleated RBC % 0 05/09/19 03:50: Sodium 134 L, Potassium 4.3, Chloride 102, Carbon Dioxide 29.0, Anion Gap 3 L, BUN 77 H, Creatinine 3.99 H, Estim Creat Clear Calc 11.03, Est GFR (MDRD) Af Amer 15 L, Est GFR (MDRD) Non-Af 12 L, BUN/Creatinine Ratio 19.3, Glucose 128 H, Calcium 7.5 L 05/09/19 03:50: Troponin I < 0.015 05/09/19 07:43: POC Glucose 96 05/09/19 11:42: POC Glucose 114 H Diagnostic Data Abdomen/Pelvis CT 05/08/19 10:50 IMPRESSION: 1. Findings consistent with cellulitis with inflammatory stranding infiltrating the low anterior abdominal wall panniculus as well as the notably swollen mons pubis and external labia/perineum, greater on the right. Additional edematous/inflammatory stranding also seen in the subcutaneous tissues of the visualized right thigh. 2. Atherosclerotic calcifications noted in the external iliac and visualized femoral arteries. The abdominal aorta is unremarkable. 3. Prior cholecystectomy. 4. Borderline thyromegaly. 5. Nidus of parenchymal calcification in the anterior mid to lower pole of left kidney adjacent to a site of cortical thinning. No hydronephrosis. 6. A few partially calcified retroperitoneal lymph nodes are again noted, a node along the right common iliac artery showing mild grossly previous study, still nonspecific in overall appearance. 7. Degenerative changes of the spine and bilateral sacroiliac joints. Electronically Signed: Jerel Mann MD at 12:34 EST , Service support , Renal Ultrasound 05/08/19 14:58 IMPRESSION: Normal ultrasound of the kidneys. No hydronephrosis. The urinary bladder is not visualized Electronically Signed: Jerel Mann MD at 19:33 EST , Service support , Current Medications Acetaminophen (Tylenol) 650 mg PO Q6H PRN PRN PRN Reason: Non-cardiac pain (4-02/12) Al Hydroxide/Mg Hydroxide (Mylanta Ii) 15 - 30 ml PO Q4H PRN PRN PRN Reason: INDIGESTION Albuterol Sulfate (Ventolin Aerosols) 2.5 mg INHALATION Q2H PRN PRN PRN Reason: dyspnea, wheezing Calamine/Phenol (Calmoseptine Ointment) 1 applic TOPICAL BID MACKENZIE; Protocol Last Admin: 05/09/19 11:48 Dose: 1 applicatio Documented by: Dextrose (D50w Syringe) 0 gm IV X1 PRN; Protocol PRN Reason: Hypoglycemia Gabapentin (Neurontin) 100 mg PO BIDCM [facility] Last Admin: 05/09/19 11:48 Dose: 100 mg Documented by: Glucagon () 1 mg IM .X1 PRN PRN Reason: Hypoglycemia Hydralazine HCl (Apresoline Iv) 10 mg IV Q4H PRN PRN PRN Reason: SBP > 160 Sodium Chloride () 1,000 mls @ 150 mls/hr IV .Q6H40M [facility] Last Admin: 05/09/19 06:43 Dose: 150 mls/hr Documented by: Dextrose (Dextrose 10%-Water) 250 mls @ 999 mls/hr IV .Q16M PRN; Protocol PRN Reason: HYPOGLYCEMIA Last Infusion: 05/08/19 14:11 Dose: Infused Documented by: Piperacillin Sod/Tazobactam (Sod 3.375 gm/ Sodium Chloride) 50 mls @ 12.5 mls/hr IV Q12 [facility] Last Admin: 05/09/19 11:49 Dose: 12.5 mls/hr Documented by: Vancomycin IV Pharmacy to Dose (1 ea/ Sodium Chloride) 500 mls @ 250 mls/hr IV X1 PRN; Protocol PRN Reason: Rx to Dose Insulin Human Lispro (Humalog Kwikpen (Bkc)) 0 unit SC ACHS [facility]; Protocol Last Admin: 05/09/19 11:48 Dose: Not Given Documented by: Magnesium Hydroxide (Milk Of Magnesia) 30 ml PO DAILY PRN PRN Reason: Constipation Nystatin (Mycostatin Powder) 1 applic TOPICAL TID [facility]; Protocol Last Admin: 05/09/19 07:30 Dose: 1 applicatio Documented by: Ondansetron HCl (Zofran) 4 mg IV Q8H PRN PRN PRN Reason: NAUSEA/VOMITING Pantoprazole Sodium (Protonix) 20 mg PO BID [facility] Last Admin: 05/09/19 11:48 Dose: 20 mg Documented by: Psyllium Hydrophilic Mucilloid (Metamucil) 1 packet PO DAILY PRN PRN PRN Reason: Constipation Senna/Docusate Sodium (Senokot-S, Kiana-Colace) 2 tablet PO BID PRN PRN PRN Reason: Constipation Sodium Chloride () 10 - 40 ml IV UD PRN PRN Reason: SALINE FLUSH Assessment/Plan All Active Problems (Last Reviewed 04/08/19 @ 08:50 by Emi Keene) Skin necrosis (Acute) Pressure injury of right perineal ischial region, unstageable (Acute) Pressure injury of left perineal ischial region, unstageable (Acute) Septic shock (Acute) Acute renal failure (Acute) Hyperkalemia (Acute) Sepsis (Acute) Panniculitis (Acute) JH (acute kidney injury) (Acute) Hyperkalemia (Acute) Hyponatremia (Acute) ARF (acute renal failure) (Resolved) Acute cystitis (Resolved) Decubitus ulcer of left ischium, stage 4 (Resolved) Hyperkalemia (Resolved) Hypoglycemia associated with type 2 diabetes mellitus (Resolved) Open wound of umbilical region (Resolved) Pressure sore of left ischium, unstageable (Resolved) Rhabdomyolysis (Resolved) Right ischial pressure sore, stage 2 (Resolved) Right ischial pressure sore, stage 3 (Resolved) Skin necrosis (Resolved) ASSESSMENT 1. Abdominal panniculus with panniculitis and edema. 2. Painful insulin nodules abdominal wall. 3. Recent weight loss. 4. Abdominal wall skin crease intertrigo. 5. Diabetes mellitus. 6. Difficulty balancing when standing and when ambulating. 7. Obesity. 8. Sepsis. 9. Pressure injury perineal area extending posteriorly onto ischial areas with skin necrosis. 10. Had history of bilateral ischial pressure sores. PLAN Above events noted. Wound culture shows Gram negative virginie and Gram positive cocci. She is on Vancomycin and Zosyn. I had discussed with the patient back in February that she would benefit from an abdominal panniculectomy to include the painful insulin nodules as well as excisional debridement of skin, subcutaneous tissue, and fascia for necrotizing soft tissue infection. With her dependent edema and history of diabetes mellitus, she is at risk for developing a necrotizing soft tissue infection. Discussed with the patient that multiple procedures may be necessary. Will leave the wound open initially and begin wound care with the VAC. These procedures can be very bloody and that usually determines the extent of the excision. The procedures would be staged 3-6 months apart. With the massive size of her abdominal panniculus, I estimated 4-6 procedures. Initially her surgery was scheduled in March,. It was cancelled due to uncontrolled atrial fibrillation. Anesthesia recommended cardiology consult. It was scheduled for 04/08/19. She did not show up for that cardiology appointment. It was rescheduled for 05/20/19. However with her recent admission for sepsis, she would need to be medically stabilized as much as possible before proceeding with surgery. With her current medical issues, surgery would be best done at a tertiary center and I recommend transfer to a tertiary center for further treatment, both medical and surgical. She also has pressure injury in the perineal area with extension onto the ischial areas. There is concern about a possible necrotizing process. I anticipate surgical excision may be extensive if a necrotizing process is present. Patient voiced understanding and knows that surgical debridement is high risk and may be extensive and possible life threatening. Depending on the size of the wound after the surgical debridement, pain control and wound care may be difficult and may need to be transferred to a Burn Center. She stated she would like to go to [place] or [place] if possible because of family living there. Patient was informed of the risks and complications of the procedure including alternatives to surgery. These were discussed with the patient personally. Patient voices understanding and wishes to proceed with transfer to a tertiary center for continued treatment. Code Visit Inpatient E&M: 39361 Init Hosp L2 - ICD-10 - E65, M79.3, R60.0, R10.31, T88.9xxS, R63.4, L30.4, E11.9, R26.89, E66.01, A41.9, N17.9, E87.5, L89.890, L89.300, I96, Z79.01
--- NOTE | 2019-05-09 15:26 | CM.UR ---
Patient has traditional medicare so she can be transferred to Medicare accepting facility of her choice. Rodri Rashid RN, CCM.
[2019-05-09 17:51] LABS: Bedside Glucose 117 mg/dL (70-110)
--- NOTE | 2019-05-09 19:10 | PN_ITS ---
Patient Problems: Active and Suspected Problems (Last Reviewed 04/08/19 @ 08:50 by Emi Keene) Skin necrosis (Acute) Pressure injury of right perineal ischial region, unstageable (Acute) Pressure injury of left perineal ischial region, unstageable (Acute) Septic shock (Acute) Acute renal failure (Acute) Hyperkalemia (Acute) Sepsis (Acute) Panniculitis (Acute) JH (acute kidney injury) (Acute) Hyperkalemia (Acute) Hyponatremia (Acute) Subjective: Patient was seen and examined today, I talked briefly with plastic surgery about her care today, plastic surgery feels that she should undergo her surgery of a tertiary facility rather than that this [facility]. Patient's creatinine has improved today, her white blood cell count is improved, I called [facility], [facility], and [facility] to see if they would be willing to take the patient-all of these hospital stated that they were full. I did talk to [facility] and I talked with a plastic surgery attending-Dr. Roshan Magdaleno-and he stated that he did not feel the patient was appropriate for transfer this weekend because she is clinically improving with her care here. He stated he would consider excepting the patient early in the week, this would probably have to be done through the hospitalist service. For now, patient will remain in the ICU. - Physical Exam Vitals/I&O's: Vital Signs Temp Pulse Resp BP Pulse Ox 98.7 F 91 16 97/52 L 97 05/09/19 14:00 05/09/19 15:00 05/09/19 14:00 05/09/19 14:00 05/09/19 14:00 Oxygen Flow Rate (L/min) 2 Oxygen Delivery Method Room Air Weight: 140 kg Body Mass Index (BMI) 55.2 Finger Stick Blood Glucose 236 Intake and Output for Last 24 Hours 05/07/19 05/08/19 05/09/19 23:59 23:59 23:59 Intake Total 2851.55 / 2851.55 3897.5 / 3897.5 Output Total 250 / 250 1300 / 1300 Balance 2601.55 / 2601.55 2597.5 / 2597.5 General: Alert, Oriented x3, Cooperative, No apparent distress, Well developed HEENT: Atraumatic, PERRLA, EOMI, Normocephalic Oral: Moist Mucosa Neck: Supple, Trachea Midline, Thyroid Normal Size and Texture Lungs: Clear to auscultation, Normal air movement, No rhonchi, No wheeze, No rales Cardiovascular: Regular rate, Regular Rhythm, Normal S1, Normal S2, No murmurs, PMI Normal, No rub noted Abdomen: Bowel Sounds Present, Soft, - - Large panniculus is noted, there is excoriation under the panniculus noted with blackened skin noted over some areas Extremities: No clubbing, No cyanosis, Capillary Refill Less than 3 Seconds Skin: No rashes, No breakdown Neurological: Cranial nerves II-XII grossly intact, Neuro grossly intact, Sensory exam intact to light touch and pain Psych/Mental Status: Normal Affect, Appropriate, Alert and oriented to time, place, person, mood and affect Microbiology Past 72 Hours 05/08/19 18:00 Wound - Abdominal Gram Stain - Final 05/08/19 18:00 Wound - Abdominal Wound Culture - Preliminary Gram negative virginie Gram positive organism Laboratory Results 05/08/19 17:45: Urine Color Yellow, Urine Clarity Cloudy, Urine pH 5.0, Ur Specific [place] 1.025, Urine Protein 30 H, Urine Glucose (UA) Normal, Urine Ketones 5 H, Urine Occult Blood 150 H, Urine Nitrite Negative, Urine Bilirubin 1 H, Urine Urobilinogen 1 H, Ur Leukocyte Esterase 25 H, Urine RBC 0 SEEN, Urine WBC 0-5 SEEN, Ur Squamous Epith Cells 0-5 SEEN, Urine Bacteria 3+, Urine Mucus 0 SEEN 05/08/19 17:45: Urine Creatinine 224.00 05/08/19 17:45: Ur Random Sodium 12 05/08/19 18:00: S.aureus Protein A PCR NEGATIVE, MRSA (PCR) Negative 05/08/19 21:10: POC Glucose 188 H 05/08/19 21:25: WBC 9.5, RBC 3.29 L, Hgb 9.2 L, Hct 28.7 L, MCV 87.2, MCH 28.0, MCHC 32.1, RDW Std Deviation 41.6, RDW Coeff of Radha 13.3, Plt Count 145 L, MPV 9.7, Immature Gran % (Auto) 0.500, Neut % (Auto) 76.7 H, Lymph % (Auto) 12.4 L, [place] % (Auto) 10.2 H, Eos % (Auto) 0.1, Baso % (Auto) 0.1, Absolute Neuts (auto) 7.3, Absolute Lymphs (auto) 1.18, Nucleated RBC % 0 05/08/19 21:25: Sodium 133 L, Potassium 5.2 H, Chloride 99, Carbon Dioxide 26.0, Anion Gap 8, BUN 89 H, Creatinine 4.68 H, Estim Creat Clear Calc 9.41, Est GFR ( MDRD) Af Amer 12 L, Est GFR (MDRD) Non-Af 10 L, BUN/Creatinine Ratio 19.0, Glucose 191 H, Calcium 8.6 05/08/19 21:25: Ammonia 23.0 05/08/19 21:25: Troponin I < 0.015 05/08/19 21:30: Specimen Type ART, Sample Site R Radial, pH 7.32 L, Bicarbonate Actual 24.6, POC Total CO2 26, Base Excess -2, O2 Saturation 91 L, ABG pCO2 47.8 H, ABG pO2 66 L, Jimenez Test POS, O2 Delivery Device Room Air, Blood Gas Notified Whom HOSP 05/09/19 01:00: Troponin I < 0.015 05/09/19 03:50: WBC 7.2, RBC 2.91 L, Hgb 8.1 L, Hct 25.2 L, MCV 86.6, MCH 27.8, MCHC 32.1, RDW Std Deviation 42.1, RDW Coeff of Radha 13.3, Plt Count 118 L, MPV 9.4, Immature Gran % (Auto) 0.400, Neut % (Auto) 74.7 H, Lymph % (Auto) 13.8 L, [place] % (Auto) 10.7 H, Eos % (Auto) 0.3, Baso % (Auto) 0.1, Absolute Neuts (auto) 5.4, Absolute Lymphs (auto) 1.00, Nucleated RBC % 0 05/09/19 03:50: Sodium 134 L, Potassium 4.3, Chloride 102, Carbon Dioxide 29.0, Anion Gap 3 L, BUN 77 H, Creatinine 3.99 H, Estim Creat Clear Calc 11.03, Est GFR (MDRD) Af Amer 15 L, Est GFR (MDRD) Non-Af 12 L, BUN/Creatinine Ratio 19.3, Glucose 128 H, Calcium 7.5 L 05/09/19 03:50: Troponin I < 0.015 05/09/19 07:43: POC Glucose 96 05/09/19 11:42: POC Glucose 114 H 05/09/19 17:44: POC Glucose 117 H Current Medications Acetaminophen (Tylenol) 650 mg PO Q6H PRN PRN PRN Reason: Non-cardiac pain () Al Hydroxide/Mg Hydroxide (Mylanta Ii) 15 - 30 ml PO Q4H PRN PRN PRN Reason: INDIGESTION Albuterol Sulfate (Ventolin Aerosols) 2.5 mg INHALATION Q2H PRN PRN PRN Reason: dyspnea, wheezing Calamine/Phenol (Calmoseptine Ointment) 1 applic TOPICAL BID [facility]; Protocol Last Admin: 05/09/19 11:48 Dose: 1 applicatio Documented by: Dextrose (D50w Syringe) 0 gm IV X1 PRN; Protocol PRN Reason: Hypoglycemia Gabapentin (Neurontin) 100 mg PO BIDCM [facility] Last Admin: 05/09/19 18:35 Dose: 100 mg Documented by: Glucagon () 1 mg IM .X1 PRN PRN Reason: Hypoglycemia Hydralazine HCl (Apresoline Iv) 10 mg IV Q4H PRN PRN PRN Reason: SBP > 160 Sodium Chloride () 1,000 mls @ 150 mls/hr IV .Q6H40M [facility] Last Infusion: 05/09/19 18:36 Dose: 150 mls/hr Documented by: Dextrose (Dextrose 10%-Water) 250 mls @ 999 mls/hr IV .Q16M PRN; Protocol PRN Reason: HYPOGLYCEMIA Last Infusion: 05/08/19 14:11 Dose: Infused Documented by: Piperacillin Sod/Tazobactam (Sod 3.375 gm/ Sodium Chloride) 50 mls @ 12.5 mls/hr IV Q12 [facility] Last Admin: 05/09/19 11:49 Dose: 12.5 mls/hr Documented by: Vancomycin IV Pharmacy to Dose (1 ea/ Sodium Chloride) 500 mls @ 250 mls/hr IV X1 PRN; Protocol PRN Reason: Rx to Dose Insulin Human Lispro (Humalog Kwmichaelpen (Bkc)) 0 unit SC ACHS [facility]; Protocol Last Admin: 05/09/19 18:36 Dose: Not Given Documented by: Magnesium Hydroxide (Milk Of Magnesia) 30 ml PO DAILY PRN PRN Reason: Constipation Nystatin (Mycostatin Powder) 1 applic TOPICAL TID [facility]; Protocol Last Admin: 05/09/19 14:57 Dose: 1 applicatio Documented by: Ondansetron HCl (Zofran) 4 mg IV Q8H PRN PRN PRN Reason: NAUSEA/VOMITING Pantoprazole Sodium (Protonix) 20 mg PO BID [facility] Last Admin: 05/09/19 11:48 Dose: 20 mg Documented by: Psyllium Hydrophilic Mucilloid (Metamucil) 1 packet PO DAILY PRN PRN PRN Reason: Constipation Senna/Docusate Sodium (Senokot-S, Kiana-Colace) 2 tablet PO BID PRN PRN PRN Reason: Constipation Sodium Chloride () 10 - 40 ml IV UD PRN PRN Reason: SALINE FLUSH Medical Necessity - Tobacco Use Smoking Status: Never smoker Tobacco Use: Non-smoker Assessment/Plan All Active Problems (Last Reviewed 04/08/19 @ 08:50 by Emi Keene) Skin necrosis (Acute) Pressure injury of right perineal ischial region, unstageable (Acute) Pressure injury of left perineal ischial region, unstageable (Acute) Septic shock (Acute) Acute renal failure (Acute) Hyperkalemia (Acute) Sepsis (Acute) Panniculitis (Acute) JH (acute kidney injury) (Acute) Hyperkalemia (Acute) Hyponatremia (Acute) ARF (acute renal failure) (Resolved) Acute cystitis (Resolved) Decubitus ulcer of left ischium, stage 4 (Resolved) Hyperkalemia (Resolved) Hypoglycemia associated with type 2 diabetes mellitus (Resolved) Open wound of umbilical region (Resolved) Pressure sore of left ischium, unstageable (Resolved) Rhabdomyolysis (Resolved) Right ischial pressure sore, stage 2 (Resolved) Right ischial pressure sore, stage 3 (Resolved) Skin necrosis (Resolved) #1 acute severe sepsis secondary to cellulitis of the panniculus-continue present antibiotic coverage, culture grew out gram-negative rods and gram- positive organisms #2 cellulitis of the panniculus-plastic surgery is seeing patient #3 skin breakdown over the panniculus-again, plastic surgery at [facility] refused admission of the patient this time, they recommended calling back when the patient was treated further for her cellulitis #4 acute kidney injury-nephrology is seeing patient #5 probable obstructive sleep apnea-pulmonary medicine is seeing patient #6 morbid obesity #7 paroxysmal atrial fibrillation-patient is currently off Eliquis, this will be reevaluated tomorrow #8 possible type 2 diabetes-patient is not on any medications at home for type 2 diabetes, there is no mention in her medical record that I could detect that she has type 2 diabetes, continue monitor blood sugars and use sliding scale insulin Code Visit Inpatient E&M: 90719 Subs Hosp L2
[2019-05-09 22:15] LABS: Bedside Glucose 145 mg/dL (70-110)
[2019-05-10] VITALS (15 sets, daily range): BP systolic 118–130; BP diastolic 54–67; PULSE 80–104; RESP 12–23; TEMP 36.9–37.3; O2SAT 94–100
[2019-05-10] MEDS: 0.9% Normal Saline 1,000 ML 150 ML IV ×2 (02:58→11:05)
--- NOTE | 2019-05-10 06:40 | PN_ITS ---
Subjective: The patient was seen and examined at the bedside this morning. Events from the last 24 hours have been reviewed. The patient currently has a low-grade fever of 99.2 ?F. However, she remains hemodynamically stable. She has been tolerant of nocturnal BiPAP therapy. She is currently documented to be overall net +6.4 L for the hospital admission. The patient was evaluated by plastic surgery yesterday who felt that given the extensive nature of her wounds and concern for necrotizing infection, that she would best be served by being transferred to a tertiary care facility. Objective: The patient's most recent lab work, culture data and imaging studies have all been personally reviewed. Surface echocardiogram from December 2017 revealed normal LV size and function with an ejection fraction of 60%. Pulmonary artery systolic pressure was estimated to be 32 mmHg. Blood and wound cultures are pending. General: Alert, No apparent distress HEENT: Atraumatic, PERRLA, Normocephalic Oral: Dry Mucosa Neck: Supple, No Nodes, Trachea Midline Lungs: No rhonchi, No wheeze, No rales, Diminished Cardiovascular: Regular rate, Regular Rhythm, Normal S1, Normal S2, No murmurs Abdomen: Bowel Sounds Present, Soft, Non Tender, Obese, - - Large pannus with wounds present Extremities: No clubbing, No cyanosis, Edema Skin: - - No significant change from previous Musculoskeletal: No Muscle Wasting Lymphatic: No Cervical, Supraclavicular, or Inguinal Adenopathy Neurological: Cranial nerves II-XII grossly intact, Neuro grossly intact Psych/Mental Status: Flat Affect Vital Signs Temp Pulse Resp BP Pulse Ox 99.2 F H 84 19 H 122/63 H 100 05/10/19 02:00 05/10/19 04:00 05/10/19 03:05 05/10/19 02:00 05/10/19 03:05 Oxygen Flow Rate (L/min) 2 Oxygen Delivery Method Bi-pap Weight: 313 lb 11.485 oz Body Mass Index (BMI) 55.2 Finger Stick Blood Glucose 236 Intake and Output for Last 24 Hours 05/08/19 05/09/19 05/10/19 23:59 23:59 23:59 Intake Total 2851.55 / 2851.55 4650.0 / 4650.0 1050 / 1050 Output Total 250 / 250 1850 / 1850 Balance 2601.55 / 2601.55 2800.0 / 2800.0 1050 / 1050 Labs (Last 48 Hours) 05/08/19 05/08/19 05/08/19 11:05 11:05 11:05 WBC 15.2 H RBC 3.91 L Hgb 11.0 L Hct 34.1 L MCV 87.2 MCH 28.1 MCHC 32.3 RDW Std Deviation 41.8 RDW Coeff of Radha 13.4 Plt Count 251 MPV 10.1 Immature Gran % (Auto) 0.700 Neut % (Auto) 88.8 H Lymph % (Auto) 3.8 L O'Brien % (Auto) 6.6 Eos % (Auto) 0.0 Baso % (Auto) 0.1 Absolute Neuts (auto) 13.5 H Absolute Lymphs (auto) 0.57 L Nucleated RBC % 0 Specimen Type Sample Site pH Bicarbonate Actual POC Total CO2 Base Excess O2 Saturation ABG pCO2 ABG pO2 Jimenez Test O2 Delivery Device Blood Gas Notified Whom Sodium 127 L Potassium 6.2 H* Chloride 95 L Carbon Dioxide 23.0 Anion Gap 9 BUN 87 H Creatinine 5.21 H Estim Creat Clear Calc 8.45 Est GFR (MDRD) Af Amer 11 L Est GFR (MDRD) Non-Af 9 L BUN/Creatinine Ratio 16.7 Glucose 216 H Hemoglobin A1c Lactic Acid Calcium 9.5 Magnesium 2.3 Ammonia Troponin I Urine Color Urine Clarity Urine pH Ur Specific [place] Urine Protein Urine Glucose (UA) Urine Ketones Urine Occult Blood Urine Nitrite Urine Bilirubin Urine Urobilinogen Ur Leukocyte Esterase Urine RBC Urine WBC Ur Squamous Epith Cells Urine Bacteria Urine Mucus Ur Random Sodium Urine Creatinine S.aureus Protein A PCR MRSA (PCR) POC Glucose 05/08/19 05/08/19 05/08/19 11:05 13:40 15:25 WBC RBC Hgb Hct MCV MCH MCHC RDW Std Deviation RDW Coeff of Radha Plt Count MPV Immature Gran % (Auto) Neut % (Auto) Lymph % (Auto) O'Brien % (Auto) Eos % (Auto) Baso % (Auto) Absolute Neuts (auto) Absolute Lymphs (auto) Nucleated RBC % Specimen Type Sample Site pH Bicarbonate Actual POC Total CO2 Base Excess O2 Saturation ABG pCO2 ABG pO2 Jimenez Test O2 Delivery Device Blood Gas Notified Whom Sodium 129 L Potassium 5.4 H Chloride 97 L Carbon Dioxide 24.0 Anion Gap 8 BUN 89 H Creatinine 4.98 H Estim Creat Clear Calc 8.84 Est GFR (MDRD) Af Amer 11 L Est GFR (MDRD) Non-Af 9 L BUN/Creatinine Ratio 17.9 Glucose 197 H Hemoglobin A1c 7.0 H Lactic Acid 1.5 Calcium 9.0 Magnesium Ammonia Troponin I Urine Color Urine Clarity Urine pH Ur Specific [place] Urine Protein Urine Glucose (UA) Urine Ketones Urine Occult Blood Urine Nitrite Urine Bilirubin Urine Urobilinogen Ur Leukocyte Esterase Urine RBC Urine WBC Ur Squamous Epith Cells Urine Bacteria Urine Mucus Ur Random Sodium Urine Creatinine S.aureus Protein A PCR MRSA (PCR) POC Glucose 05/08/19 05/08/19 05/08/19 16:52 17:45 17:45 WBC RBC Hgb Hct MCV MCH MCHC RDW Std Deviation RDW Coeff of Radha Plt Count MPV Immature Gran % (Auto) Neut % (Auto) Lymph % (Auto) O'Brien % (Auto) Eos % (Auto) Baso % (Auto) Absolute Neuts (auto) Absolute Lymphs (auto) Nucleated RBC % Specimen Type Sample Site pH Bicarbonate Actual POC Total CO2 Base Excess O2 Saturation ABG pCO2 ABG pO2 Jimenez Test O2 Delivery Device Blood Gas Notified Whom Sodium Potassium Chloride Carbon Dioxide Anion Gap BUN Creatinine Estim Creat Clear Calc Est GFR (MDRD) Af Amer Est GFR (MDRD) Non-Af BUN/Creatinine Ratio Glucose Hemoglobin A1c Lactic Acid Calcium Magnesium Ammonia Troponin I Urine Color Yellow Urine Clarity Cloudy Urine pH 5.0 Ur Specific [place] 1.025 Urine Protein 30 H Urine Glucose (UA) Normal Urine Ketones 5 H Urine Occult Blood 150 H Urine Nitrite Negative Urine Bilirubin 1 H Urine Urobilinogen 1 H Ur Leukocyte Esterase 25 H Urine RBC 0 SEEN Urine WBC 0-5 SEEN Ur Squamous Epith Cells 0-5 SEEN Urine Bacteria 3+ Urine Mucus 0 SEEN Ur Random Sodium Urine Creatinine 224.00 S.aureus Protein A PCR MRSA (PCR) POC Glucose 186 H 05/08/19 05/08/19 05/08/19 17:45 18:00 21:10 WBC RBC Hgb Hct MCV MCH MCHC RDW Std Deviation RDW Coeff of Radha Plt Count MPV Immature Gran % (Auto) Neut % (Auto) Lymph % (Auto) O'Brien % (Auto) Eos % (Auto) Baso % (Auto) Absolute Neuts (auto) Absolute Lymphs (auto) Nucleated RBC % Specimen Type Sample Site pH Bicarbonate Actual POC Total CO2 Base Excess O2 Saturation ABG pCO2 ABG pO2 Jimenez Test O2 Delivery Device Blood Gas Notified Whom Sodium Potassium Chloride Carbon Dioxide Anion Gap BUN Creatinine Estim Creat Clear Calc Est GFR (MDRD) Af Amer Est GFR (MDRD) Non-Af BUN/Creatinine Ratio Glucose Hemoglobin A1c Lactic Acid Calcium Magnesium Ammonia Troponin I Urine Color Urine Clarity Urine pH Ur Specific [place] Urine Protein Urine Glucose (UA) Urine Ketones Urine Occult Blood Urine Nitrite Urine Bilirubin Urine Urobilinogen Ur Leukocyte Esterase Urine RBC Urine WBC Ur Squamous Epith Cells Urine Bacteria Urine Mucus Ur Random Sodium 12 Urine Creatinine S.aureus Protein A PCR NEGATIVE MRSA (PCR) Negative POC Glucose 188 H 05/08/19 05/08/19 05/08/19 21:25 21:25 21:25 WBC 9.5 RBC 3.29 L Hgb 9.2 L Hct 28.7 L MCV 87.2 MCH 28.0 MCHC 32.1 RDW Std Deviation 41.6 RDW Coeff of Radha 13.3 Plt Count 145 L MPV 9.7 Immature Gran % (Auto) 0.500 Neut % (Auto) 76.7 H Lymph % (Auto) 12.4 L O'Brien % (Auto) 10.2 H Eos % (Auto) 0.1 Baso % (Auto) 0.1 Absolute Neuts (auto) 7.3 Absolute Lymphs (auto) 1.18 Nucleated RBC % 0 Specimen Type Sample Site pH Bicarbonate Actual POC Total CO2 Base Excess O2 Saturation ABG pCO2 ABG pO2 Jimenez Test O2 Delivery Device Blood Gas Notified Whom Sodium 133 L Potassium 5.2 H Chloride 99 Carbon Dioxide 26.0 Anion Gap 8 BUN 89 H Creatinine 4.68 H Estim Creat Clear Calc 9.41 Est GFR (MDRD) Af Amer 12 L Est GFR (MDRD) Non-Af 10 L BUN/Creatinine Ratio 19.0 Glucose 191 H Hemoglobin A1c Lactic Acid Calcium 8.6 Magnesium Ammonia 23.0 Troponin I Urine Color Urine Clarity Urine pH Ur Specific [place] Urine Protein Urine Glucose (UA) Urine Ketones Urine Occult Blood Urine Nitrite Urine Bilirubin Urine Urobilinogen Ur Leukocyte Esterase Urine RBC Urine WBC Ur Squamous Epith Cells Urine Bacteria Urine Mucus Ur Random Sodium Urine Creatinine S.aureus Protein A PCR MRSA (PCR) POC Glucose 05/08/19 05/08/19 05/09/19 21:25 21:30 01:00 WBC RBC Hgb Hct MCV MCH MCHC RDW Std Deviation RDW Coeff of Radha Plt Count MPV Immature Gran % (Auto) Neut % (Auto) Lymph % (Auto) O'Brien % (Auto) Eos % (Auto) Baso % (Auto) Absolute Neuts (auto) Absolute Lymphs (auto) Nucleated RBC % Specimen Type ART Sample Site R Radial pH 7.32 L Bicarbonate Actual 24.6 POC Total CO2 26 Base Excess -2 O2 Saturation 91 L ABG pCO2 47.8 H ABG pO2 66 L Jimenez Test POS O2 Delivery Device Room Air Blood Gas Notified Whom HOSP MD Sodium Potassium Chloride Carbon Dioxide Anion Gap BUN Creatinine Estim Creat Clear Calc Est GFR (MDRD) Af Amer Est GFR (MDRD) Non-Af BUN/Creatinine Ratio Glucose Hemoglobin A1c Lactic Acid Calcium Magnesium Ammonia Troponin I < 0.015 < 0.015 Urine Color Urine Clarity Urine pH Ur Specific [place] Urine Protein Urine Glucose (UA) Urine Ketones Urine Occult Blood Urine Nitrite Urine Bilirubin Urine Urobilinogen Ur Leukocyte Esterase Urine RBC Urine WBC Ur Squamous Epith Cells Urine Bacteria Urine Mucus Ur Random Sodium Urine Creatinine S.aureus Protein A PCR MRSA (PCR) POC Glucose 05/09/19 05/09/19 05/09/19 03:50 03:50 03:50 WBC 7.2 RBC 2.91 L Hgb 8.1 L Hct 25.2 L MCV 86.6 MCH 27.8 MCHC 32.1 RDW Std Deviation 42.1 RDW Coeff of Radha 13.3 Plt Count 118 L MPV 9.4 Immature Gran % (Auto) 0.400 Neut % (Auto) 74.7 H Lymph % (Auto) 13.8 L O'Brien % (Auto) 10.7 H Eos % (Auto) 0.3 Baso % (Auto) 0.1 Absolute Neuts (auto) 5.4 Absolute Lymphs (auto) 1.00 Nucleated RBC % 0 Specimen Type Sample Site pH Bicarbonate Actual POC Total CO2 Base Excess O2 Saturation ABG pCO2 ABG pO2 Jimenez Test O2 Delivery Device Blood Gas Notified Whom Sodium 134 L Potassium 4.3 Chloride 102 Carbon Dioxide 29.0 Anion Gap 3 L BUN 77 H Creatinine 3.99 H Estim Creat Clear Calc 11.03 Est GFR (MDRD) Af Amer 15 L Est GFR (MDRD) Non-Af 12 L BUN/Creatinine Ratio 19.3 Glucose 128 H Hemoglobin A1c Lactic Acid Calcium 7.5 L Magnesium Ammonia Troponin I < 0.015 Urine Color Urine Clarity Urine pH Ur Specific [place] Urine Protein Urine Glucose (UA) Urine Ketones Urine Occult Blood Urine Nitrite Urine Bilirubin Urine Urobilinogen Ur Leukocyte Esterase Urine RBC Urine WBC Ur Squamous Epith Cells Urine Bacteria Urine Mucus Ur Random Sodium Urine Creatinine S.aureus Protein A PCR MRSA (PCR) POC Glucose 05/09/19 05/09/19 05/09/19 07:43 11:42 17:44 WBC RBC Hgb Hct MCV MCH MCHC RDW Std Deviation RDW Coeff of Radha Plt Count MPV Immature Gran % (Auto) Neut % (Auto) Lymph % (Auto) O'Brien % (Auto) Eos % (Auto) Baso % (Auto) Absolute Neuts (auto) Absolute Lymphs (auto) Nucleated RBC % Specimen Type Sample Site pH Bicarbonate Actual POC Total CO2 Base Excess O2 Saturation ABG pCO2 ABG pO2 Jimenez Test O2 Delivery Device Blood Gas Notified Whom Sodium Potassium Chloride Carbon Dioxide Anion Gap BUN Creatinine Estim Creat Clear Calc Est GFR (MDRD) Af Amer Est GFR (MDRD) Non-Af BUN/Creatinine Ratio Glucose Hemoglobin A1c Lactic Acid Calcium Magnesium Ammonia Troponin I Urine Color Urine Clarity Urine pH Ur Specific [place] Urine Protein Urine Glucose (UA) Urine Ketones Urine Occult Blood Urine Nitrite Urine Bilirubin Urine Urobilinogen Ur Leukocyte Esterase Urine RBC Urine WBC Ur Squamous Epith Cells Urine Bacteria Urine Mucus Ur Random Sodium Urine Creatinine S.aureus Protein A PCR MRSA (PCR) POC Glucose 96 114 H 117 H 05/09/19 21:54 WBC RBC Hgb Hct MCV MCH MCHC RDW Std Deviation RDW Coeff of Radha Plt Count MPV Immature Gran % (Auto) Neut % (Auto) Lymph % (Auto) O'Brien % (Auto) Eos % (Auto) Baso % (Auto) Absolute Neuts (auto) Absolute Lymphs (auto) Nucleated RBC % Specimen Type Sample Site pH Bicarbonate Actual POC Total CO2 Base Excess O2 Saturation ABG pCO2 ABG pO2 Jimenez Test O2 Delivery Device Blood Gas Notified Whom Sodium Potassium Chloride Carbon Dioxide Anion Gap BUN Creatinine Estim Creat Clear Calc Est GFR (MDRD) Af Amer Est GFR (MDRD) Non-Af BUN/Creatinine Ratio Glucose Hemoglobin A1c Lactic Acid Calcium Magnesium Ammonia Troponin I Urine Color Urine Clarity Urine pH Ur Specific [place] Urine Protein Urine Glucose (UA) Urine Ketones Urine Occult Blood Urine Nitrite Urine Bilirubin Urine Urobilinogen Ur Leukocyte Esterase Urine RBC Urine WBC Ur Squamous Epith Cells Urine Bacteria Urine Mucus Ur Random Sodium Urine Creatinine S.aureus Protein A PCR MRSA (PCR) POC Glucose 145 H Microbiology 05/08/19 18:00 Wound - Abdominal Gram Stain - Final 05/08/19 18:00 Wound - Abdominal Wound Culture - Preliminary Gram negative virginie Gram positive organism Clinical Impression(s) from Imaging Studies Abdomen/Pelvis CT 05/08/19 10:50 IMPRESSION: 1. Findings consistent with cellulitis with inflammatory stranding infiltrating the low anterior abdominal wall panniculus as well as the notably swollen mons pubis and external labia/perineum, greater on the right. Additional edematous/inflammatory stranding also seen in the subcutaneous tissues of the visualized right thigh. 2. Atherosclerotic calcifications noted in the external iliac and visualized femoral arteries. The abdominal aorta is unremarkable. 3. Prior cholecystectomy. 4. Borderline thyromegaly. 5. Nidus of parenchymal calcification in the anterior mid to lower pole of left kidney adjacent to a site of cortical thinning. No hydronephrosis. 6. A few partially calcified retroperitoneal lymph nodes are again noted, a node along the right common iliac artery showing mild grossly previous study, still nonspecific in overall appearance. 7. Degenerative changes of the spine and bilateral sacroiliac joints. Electronically Signed: Jerel Mann MD at 12:34 EST , Service support , Renal Ultrasound 05/08/19 14:58 IMPRESSION: Normal ultrasound of the kidneys. No hydronephrosis. The urinary bladder is not visualized Electronically Signed: Jerel Mann MD at 19:33 EST , Service support , Medical Necessity - Tobacco Use Smoking Status: Never smoker Tobacco Use: Non-smoker Assessment/Plan All Active Problems (Last Reviewed 04/08/19 @ 08:50 by Emi Keene) Skin necrosis (Acute) Pressure injury of right perineal ischial region, unstageable (Acute) Pressure injury of left perineal ischial region, unstageable (Acute) Septic shock (Acute) Acute renal failure (Acute) Hyperkalemia (Acute) Sepsis (Acute) Panniculitis (Acute) JH (acute kidney injury) (Acute) Hyperkalemia (Acute) Hyponatremia (Acute) ARF (acute renal failure) (Resolved) Acute cystitis (Resolved) Decubitus ulcer of left ischium, stage 4 (Resolved) Hyperkalemia (Resolved) Hypoglycemia associated with type 2 diabetes mellitus (Resolved) Open wound of umbilical region (Resolved) Pressure sore of left ischium, unstageable (Resolved) Rhabdomyolysis (Resolved) Right ischial pressure sore, stage 2 (Resolved) Right ischial pressure sore, stage 3 (Resolved) Skin necrosis (Resolved) RECOMMENDATIONS: 1. Continue BiPAP 14/6 with naps and nightly. 2. Continue empiric antimicrobials. 3. Consider transfer to tertiary care facility, given recommendations of plastic surgery. 4. Recommend outpatient dedicated polysomnogram to evaluate for obstructive sleep apnea. IMPRESSIONS: 1. Severe sepsis likely secondary to panniculitis Continue empiric antimicrobial coverage, pending infectious work-up. Plastic surgery is currently following. 2. Acute kidney injury/hyperkalemia Likely prerenal in etiology. Creatinine is improving with volume expansion. Nephrology is currently following. 3. Metabolic encephalopathy Improved. The patient was initially transferred to the medical intensive care unit in the setting of decreased responsiveness, which has improved with stabilization of hemodynamics and avoidance of sedating medications. In addition, the patient likely has underlying obstructive sleep apnea and/or alveolar hypoventilation secondary to obesity. Accordingly, she will be continued on nocturnal BiPAP therapy empirically. 4. Suspected sleep disordered breathing The patient did have audible snoring and witnessed apneic events. I would recommend an outpatient polysomnogram be completed with initiation of nocturnal Pap therapy, if clinically indicated. For now, the patient will remain on BiPAP therapy while admitted to the hospital with naps and nightly. 5. Morbid obesity/hypertension/diabetes mellitus/GERD/depression/chronic pain syndrome/paroxysmal atrial fibrillation Complicates care, management, recovery and prognosis. Continue home medications as indicated. Home anticoagulation regimen is currently on hold, should surgical intervention be required. This note was generated with Be my eyesation software. It may contain incorrect words, spelling, and punctuation that were not noted in checking the note before signing. Code Visit Inpatient E&M: 13584 Subs Hosp L2
[2019-05-10 09:02] LABS: Vancomycin, Random Level 11.2 ug/mL (0.0-15.0)
--- NOTE | 2019-05-10 10:55 | NURSING ---
report called to [facility]cu for transfer to room 111, sister here aware of room number
[2019-05-10] MEDS: Gabapentin 100 MG Capsule PO ×2 (11:03→16:01)
[2019-05-10] MEDS: Menthol/Lanolin/Calamine/Znox 113 GM Tube 1 APPLIC TOPICAL ×2 (11:05→21:32)
[2019-05-10 11:11] LABS: Bedside Glucose 119 mg/dL (70-110)
[2019-05-10] MEDS: 0.9% Normal Saline 1,000 ML 100 ML IV ×2 (11:30→21:30)
--- NOTE | 2019-05-10 11:33 | PCM.PROGNOTE ---
Patient Problems: Active and Suspected Problems (Last Reviewed 04/08/19 @ 08:50 by Emi Keene) Skin necrosis (Acute) Pressure injury of right perineal ischial region, unstageable (Acute) Pressure injury of left perineal ischial region, unstageable (Acute) Septic shock (Acute) Acute renal failure (Acute) Hyperkalemia (Acute) Sepsis (Acute) Panniculitis (Acute) JH (acute kidney injury) (Acute) Hyperkalemia (Acute) Hyponatremia (Acute) Subjective: Patient was seen and examined today, her blood pressure is better, she remains afebrile. Patient appears stable for transfer to PCU at this time Objective: General: Alert, Oriented x3, Cooperative, No apparent distress, Well developed HEENT: Atraumatic, PERRLA, EOMI, Normocephalic Oral: Moist Mucosa Neck: Supple, Trachea Midline, Thyroid Normal Size and Texture Lungs: Clear to auscultation, Normal air movement, No rhonchi, No wheeze, No rales Cardiovascular: Regular rate, Regular Rhythm, Normal S1, Normal S2, No murmurs, PMI Normal, No rub noted Abdomen: Bowel Sounds Present, Soft, - - Large panniculus is noted, there is excoriation under the panniculus noted with blackened skin noted over some areas Extremities: No clubbing, No cyanosis, Capillary Refill Less than 3 Seconds Skin: No rashes, No breakdown Neurological: Cranial nerves II-XII grossly intact, Neuro grossly intact, Sensory exam intact to light touch and pain Psych/Mental Status: Normal Affect, Appropriate, Alert and oriented to time, place, person, mood and affect - Physical Exam Vitals/I&O's: Vital Signs Temp Pulse Resp BP Pulse Ox 98.8 F 85 16 121/54 H 100 05/10/19 10:00 05/10/19 10:00 05/10/19 10:00 05/10/19 10:05/10/19 10:00 Oxygen Flow Rate (L/min) 2 Oxygen Delivery Method Bi-pap Weight: 142.3 kg Body Mass Index (BMI) 55.2 Finger Stick Blood Glucose 236 Intake and Output for Last 24 Hours 05/08/19 05/09/19 05/10/19 23:59 23:59 23:59 Intake Total 2851.55 / 2851.55 4650.0 / 4650.0 2049 Output Total 250 / 250 1850 / 1850 Balance 2601.55 / 2601.55 2800.0 / 2800.0 2049 Microbiology Past 72 Hours 05/08/19 13:40 Blood Culture (Wb) - Anticubital Left Blood Culture - Preliminary No growth in 48 hours. 05/08/19 13:40 Blood Culture (Wb) - Anticubital Right Blood Culture - Preliminary No growth in 48 hours. 05/08/19 18:00 Wound - Abdominal Gram Stain - Final 05/08/19 18:00 Wound - Abdominal Wound Culture - Preliminary Serratia fonticola Gram positive organism Laboratory Results 05/09/19 11:42: POC Glucose 114 H 05/09/19 17:44: POC Glucose 117 H 05/09/19 21:54: POC Glucose 145 H 05/10/19 05:50: Random Vancomycin 11.2 05/10/19 11:07: POC Glucose 119 H Current Medications Acetaminophen (Tylenol) 650 mg PO Q6H PRN PRN PRN Reason: Non-cardiac pain () Al Hydroxide/Mg Hydroxide (Mylanta Ii) 15 - 30 ml PO Q4H PRN PRN PRN Reason: INDIGESTION Albuterol Sulfate (Ventolin Aerosols) 2.5 mg INHALATION Q2H PRN PRN PRN Reason: dyspnea, wheezing Calamine/Phenol (Calmoseptine Ointment) 1 applic TOPICAL BID REPLACED BY [facility]; Protocol Last Admin: 05/10/19 11:05 Dose: 1 applicatio Documented by: Dextrose (D50w Syringe) 0 gm IV X1 PRN; Protocol PRN Reason: Hypoglycemia Gabapentin (Neurontin) [facility] Last Admin: 05/10/19 11:03 Dose: 100 mg Documented by: Glucagon () 1 mg IM .X1 PRN PRN Reason: Hypoglycemia Hydralazine HCl (Apresoline Iv) 10 mg IV Q4H PRN PRN PRN Reason: SBP > 160 Sodium Chloride () 1,000 mls @ 150 mls/hr IV .Q6H40M REPLACED BY [facility] Last Admin: 05/10/19 11:05 Dose: 150 mls/hr Documented by: Dextrose (Dextrose 10%-Water) 250 mls @ 999 mls/hr IV .Q16M PRN; Protocol PRN Reason: HYPOGLYCEMIA Last Infusion: 05/08/19 14:11 Dose: Infused Documented by: Piperacillin Sod/Tazobactam (Sod 3.375 gm/ Sodium Chloride) 50 mls @ 12.5 mls/hr IV Q12 REPLACED BY [facility] Last Admin: 05/10/19 11:03 Dose: 12.5 mls/hr Documented by: Vancomycin IV Pharmacy to Dose (1 ea/ Sodium Chloride) 500 mls @ 250 mls/hr IV X1 PRN; Protocol PRN Reason: Rx to Dose Vancomycin HCl 2,000 mg/ (Sodium Chloride) 540 mls @ 250 mls/hr IV X1 ONE Stop: 05/10/19 14:09 Insulin Human Lispro (Humalog Kwikpen (Bkc)) 0 unit [facility]; Protocol Last Admin: 05/10/19 11:08 Dose: Not Given Documented by: Magnesium Hydroxide (Milk Of Magnesia) 30 ml PO DAILY PRN PRN Reason: Constipation Nystatin (Mycostatin Powder) 1 applic TOPICAL TID REPLACED BY [facility]; Protocol Last Admin: 05/09/19 21:55 Dose: 1 applicatio Documented by: Ondansetron HCl (Zofran) 4 mg IV Q8H PRN PRN PRN Reason: NAUSEA/VOMITING Pantoprazole Sodium (Protonix) 20 mg PO BID REPLACED BY [facility] Last Admin: 05/10/19 11:05 Dose: Not Given Documented by: Psyllium Hydrophilic Mucilloid (Metamucil) 1 packet PO DAILY PRN PRN PRN Reason: Constipation Senna/Docusate Sodium (Senokot-S, Kiana-Colace) 2 tablet PO BID PRN PRN PRN Reason: Constipation Sodium Chloride () 10 - 40 ml IV UD PRN PRN Reason: SALINE FLUSH Medical Necessity - Tobacco Use Smoking Status: Never smoker Tobacco Use: Non-smoker Assessment/Plan All Active Problems (Last Reviewed 04/08/19 @ 08:50 by Emi Keene) Skin necrosis (Acute) Pressure injury of right perineal ischial region, unstageable (Acute) Pressure injury of left perineal ischial region, unstageable (Acute) Septic shock (Acute) Acute renal failure (Acute) Hyperkalemia (Acute) Sepsis (Acute) Panniculitis (Acute) JH (acute kidney injury) (Acute) Hyperkalemia (Acute) Hyponatremia (Acute) ARF (acute renal failure) (Resolved) Acute cystitis (Resolved) Decubitus ulcer of left ischium, stage 4 (Resolved) Hyperkalemia (Resolved) Hypoglycemia associated with type 2 diabetes mellitus (Resolved) Open wound of umbilical region (Resolved) Pressure sore of left ischium, unstageable (Resolved) Rhabdomyolysis (Resolved) Right ischial pressure sore, stage 2 (Resolved) Right ischial pressure sore, stage 3 (Resolved) Skin necrosis (Resolved) #1 acute severe sepsis secondary to cellulitis of the panniculus-continue present antibiotic coverage, culture grew out Serratia fonticola and a gram-positive organism. #2 cellulitis of the panniculus-plastic surgery is seeing patient #3 skin breakdown over the panniculus-again, plastic surgery at [facility] refused admission of the patient this time-Dr. Roshan Magdaleno, they recommended calling back when the patient was treated further for her cellulitis #4 acute kidney injury-nephrology is seeing patient, BMP was ordered on the patient #5 probable obstructive sleep apnea-pulmonary medicine is seeing patient #6 morbid obesity #7 paroxysmal atrial fibrillation-patient will be placed back on her Eliquis #8 possible type 2 diabetes-patient is not on any medications at home for type 2 diabetes, there is no mention in her medical record that I could detect that she has type 2 diabetes, continue monitor blood sugars and use sliding scale insulin Code Visit Inpatient E&M: 93289 Subs Hosp L2
[2019-05-10 12:56] LABS: Anion Gap 5 (5-15); BUN 58 mg/dL (7-18); BUN/Creat Ratio 26.6 RATIO (10-20); Calcium,Total 7.5 mg/dL (8.5-10.1); Chloride 110 mmol/L (98-107); Creatinine, Serum 2.18 mg/dL (0.55-1.02); EST Glomerular Filtration Rate 24 mL/min (>60); Est Glom Filt Rate - Afr Amer 29 mL/min (>60); Estimated Creatinine Clearance 20.19 ml/min; Glucose 125 mg/dL (74-106); Potassium 3.6 mmol/L (3.5-5.1); Sodium Level 141 mmol/L (136-145)
[2019-05-10] MEDS: APIXABAN 5 MG TABLET PO ×2 (13:06→21:32)
[2019-05-10] MEDS: Nystatin Powder 15gm Bottle 1 APPLIC TOPICAL ×2 (13:07→21:31)
[2019-05-10] MEDS: Insulin Lispro 100 UNIT/ML INSULN.PEN SC (16:24)
[2019-05-10 16:36] LABS: Bedside Glucose 166 mg/dL (70-110)
[2019-05-10] MEDS: Pantoprazole Sodium 20 MG Tablet PO (21:31)
[2019-05-10 21:51] LABS: Bedside Glucose 135 mg/dL (70-110)
[2019-05-11] VITALS (11 sets, daily range): BP systolic 137–154; BP diastolic 61–72; PULSE 67–98; RESP 12–20; TEMP 36.6–36.9; O2SAT 94–99
[2019-05-11 06:16] LABS: Absolute Neutrophil Count 3.2 X10^3/uL (2.0-7.7); Basophil# 0.02 X10^3/uL; Basophil% 0.4 % (0-1); Eosinophil# 0.05 X10^3/uL; Eosinophils% 1.1 % (0-5); Hematocrit 24.4 % (37-47); Hemoglobin 7.7 g/dL (12.0-15.0); Lymphocyte % 21.3 % (19-41); Mean Corp Hgb Conc 31.6 g/dL (32-36); Mean Corpuscular Hgb 27.8 pg (27.0-32.0); Mean Corpuscular Volume 88.1 fL (81-99); Mean Platelet Vol. 9.4 fl (6.2-12.0); Monocyte# 0.37 X10^3/uL; Monocyte% 7.9 % (0-10); NRBC Flagged by Analyzer 0 % (0-5); Neutrophil # 3.23 X10^3/uL (2.7-7.7); Neutrophil % 68.9 % (47-70); Platelet Count 120 K/mm3 (150-450); RBC Distribution Width CV 13.6 % (11.6-14.6); RBC Distribution Width SD 42.3 fl (35.1-43.9); Red Blood Count 2.77 M/mm3 (4.2-5.4); White Blood Count 4.7 K/mm3 (4.4-11.0)
[2019-05-11 06:28] LABS: Anion Gap 4 (5-15); BUN 44 mg/dL (7-18); BUN/Creat Ratio 27.2 RATIO (10-20); Calcium,Total 7.4 mg/dL (8.5-10.1); Chloride 111 mmol/L (98-107); Creatinine, Serum 1.62 mg/dL (0.55-1.02); EST Glomerular Filtration Rate 34 mL/min (>60); Est Glom Filt Rate - Afr Amer 41 mL/min (>60); Estimated Creatinine Clearance 27.17 ml/min; Glucose 112 mg/dL (74-106); Magnesium 1.6 mg/dL (1.6-2.6); Phosphorus 2.6 mg/dL (2.5-4.9); Potassium 3.5 mmol/L (3.5-5.1); Sodium Level 142 mmol/L (136-145)
[2019-05-11] MEDS: 0.9% Normal Saline 1,000 ML 100 ML IV (06:48)
[2019-05-11] MEDS: Nystatin Powder 15gm Bottle 1 APPLIC TOPICAL ×2 (06:48→15:19)
[2019-05-11 06:56] LABS: Bedside Glucose 109 mg/dL (70-110)
[2019-05-11] MEDS: Gabapentin 100 MG Capsule PO ×2 (09:07→16:15)
[2019-05-11] MEDS: Pantoprazole Sodium 20 MG Tablet PO (09:10)
--- NOTE | 2019-05-11 10:33 | PCM.PN.HOSP ---
Patient Problems: Active and Suspected Problems (Last Reviewed 04/08/19 @ 08:50 by Emi Keene) Skin necrosis (Acute) Pressure injury of right perineal ischial region, unstageable (Acute) Pressure injury of left perineal ischial region, unstageable (Acute) Septic shock (Acute) Acute renal failure (Acute) Hyperkalemia (Acute) Sepsis (Acute) Panniculitis (Acute) JH (acute kidney injury) (Acute) Hyperkalemia (Acute) Hyponatremia (Acute) Subjective: Feeling a little bit better, she was to be transferred to [facility] however they refused stating that they would prefer if we treated the cellulitis more Vitals/I&O's: Vital Signs Temp Pulse Resp BP Pulse Ox 98.4 F 87 16 144/65 H 96 05/11/19 09:15 05/11/19 09:15 05/11/19 09:15 05/11/19 09:15 05/11/19 09:15 Oxygen Flow Rate (L/min) 2 Oxygen Delivery Method Room Air Weight: 311 lb 4.683 oz Body Mass Index (BMI) 55.2 Finger Stick Blood Glucose 236 Intake and Output for Last 24 Hours 05/09/19 05/10/19 05/11/19 23:59 23:59 23:59 Intake Total 4650.0 / 4650.0 3717.25 / 3717.25 980 / 980 Output Total 1850 / 1850 1350 / 2200 1750 / 1750 Balance 2800.0 / 2800.0 2367.25 / 1517.25 -770 / -770 General: Alert, Oriented x3, Cooperative, No apparent distress HEENT: Atraumatic, PERRLA, EOMI, Normocephalic Oral: Moist Mucosa Neck: Supple, No JVD Lungs: Clear to auscultation, Normal air movement, No rhonchi, No wheeze, No rales, Diminished Cardiovascular: Regular rate, Regular Rhythm, Normal S1, Normal S2, No murmurs Abdomen: Soft, Non Tender, Non-Distended, No Hepato-splenomegaly, Obese, - - Large pannus with excoriation underneath Extremities: No edema, Capillary Refill Less than 3 Seconds Skin: No rashes, No breakdown Neurological: Neuro grossly intact, Sensory exam intact to light touch and pain Psych/Mental Status: Normal Affect, Appropriate Microbiology Past 72 Hours 05/08/19 18:00 Wound - Abdominal Gram Stain - Final 05/08/19 18:00 Wound - Abdominal Wound Culture - Final Serratia fonticola Enterococcus faecalis Aerococcus viridans. Staphylococcus simulans 05/08/19 13:40 Blood Culture (Wb) - Anticubital Left Blood Culture - Preliminary No growth in 48 hours. 05/08/19 13:40 Blood Culture (Wb) - Anticubital Right Blood Culture - Preliminary No growth in 48 hours. Laboratory Results 05/10/19 11:07: POC Glucose 119 H 05/10/19 12:15: Sodium 141, Potassium 3.6, Chloride 110 H, Carbon Dioxide 26.0, Anion Gap 5, BUN 58 H, Creatinine 2.18 H, Estim Creat Clear Calc 20.19, Est GFR (MDRD) Af Amer 29 L, Est GFR (MDRD) Non-Af 24 L, BUN/Creatinine Ratio 26.6 H, Glucose 125 H, Calcium 7.5 L 05/10/19 16:24: POC Glucose 166 H 05/10/19 21:25: POC Glucose 135 H 05/11/19 06:05: WBC 4.7, RBC 2.77 L, Hgb 7.7 L, Hct 24.4 L, MCV 88.1, MCH 27.8, MCHC 31.6 L, RDW Std Deviation 42.3, RDW Coeff of Radha 13.6, Plt Count 120 L, MPV 9.4, Immature Gran % (Auto) 0.400, Neut % (Auto) 68.9, Lymph % (Auto) 21.3, [place] % (Auto) 7.9, Eos % (Auto) 1.1, Baso % (Auto) 0.4, Absolute Neuts (auto) 3.2, Absolute Lymphs (auto) 1.00, Nucleated RBC % 0 05/11/19 06:05: Sodium 142, Potassium 3.5, Chloride 111 H, Carbon Dioxide 27.0, Anion Gap 4 L, BUN 44 H, Creatinine 1.62 H, Estim Creat Clear Calc 27.17, Est GFR (MDRD) Af Amer 41 L, Est GFR (MDRD) Non-Af 34 L, BUN/Creatinine Ratio 27.2 H, Glucose 112 H, Calcium 7.4 L, Phosphorus 2.6, Magnesium 1.6 05/11/19 06:47: POC Glucose 109 Current Medications Acetaminophen (Tylenol) 650 mg PO Q6H PRN PRN PRN Reason: Non-cardiac pain () Al Hydroxide/Mg Hydroxide (Mylanta Ii) 15 - 30 ml PO Q4H PRN PRN PRN Reason: INDIGESTION Albuterol Sulfate (Ventolin Aerosols) 2.5 mg INHALATION Q2H PRN PRN PRN Reason: dyspnea, wheezing Apixaban (Eliquis) 5 mg PO BID [facility] Last Admin: 05/10/19 21:32 Dose: 5 mg Documented by: Calamine/Phenol (Calmoseptine Ointment) 1 applic TOPICAL BID [facility]; Protocol Last Admin: 05/10/19 21:32 Dose: 1 applicatio Documented by: [facility] Admin: 05/11/19 09:07 Dose: 100 mg Documented by: Glucagon () 1 mg IM .X1 PRN PRN Reason: Hypoglycemia Dextrose (Dextrose 10%-Water) 250 mls @ 999 mls/hr IV .Q16M PRN; Protocol PRN Reason: HYPOGLYCEMIA Last Infusion: 05/08/19 14:11 Dose: Infused Documented by: Piperacillin Sod/Tazobactam (Sod 3.375 gm/ Sodium Chloride) 50 mls @ 12.5 mls/hr IV Q12 [facility] Last Admin: 05/11/19 09:11 Dose: 12.5 mls/hr Documented by: Sodium Chloride () 1,000 mls @ 100 mls/hr IV .Q10H [facility] Last Admin: 05/11/19 06:48 Dose: 100 mls/hr Documented by: Sodium Chloride () 250 mls @ 15 mls/hr IV .[id number] PRN PRN Reason: Saline Flush Last Infusion: 05/10/19 16:35 Dose: 0 mls/hr Documented by: Insulin Human Lispro (Humalog Kwikpen (Bkc)) 0 unit SC ACHS [facility]; Protocol Last Admin: 05/11/19 06:48 Dose: Not Given Documented by: Magnesium Hydroxide (Milk Of Magnesia) 30 ml PO DAILY PRN PRN Reason: Constipation Nystatin (Mycostatin Powder) 1 applic TOPICAL TID [facility]; Protocol Last Admin: 05/11/19 06:48 Dose: 1 applicatio Documented by: Ondansetron HCl (Zofran) 4 mg IV Q8H PRN PRN PRN Reason: NAUSEA/VOMITING Pantoprazole Sodium (Protonix) 20 mg PO BID [facility] Last Admin: 05/11/19 09:10 Dose: 20 mg Documented by: Senna/Docusate Sodium (Senokot-S, Kiana-Colace) 2 tablet PO BID PRN PRN PRN Reason: Constipation Sodium Chloride () 10 - 40 ml IV UD PRN PRN Reason: SALINE FLUSH STROKE Vital Signs/Narrative: Vital Signs Temp Pulse Resp BP Pulse Ox 05/11/19 09:15 98.4 F 87 16 144/65 H 96 05/11/19 08:16 94 05/11/19 07:22 78 Medical Necessity - Tobacco Use Smoking Status: Never smoker Tobacco Use: Non-smoker Assessment/Plan All Active Problems (Last Reviewed 04/08/19 @ 08:50 by Emi Keene) Skin necrosis (Acute) Pressure injury of right perineal ischial region, unstageable (Acute) Pressure injury of left perineal ischial region, unstageable (Acute) Septic shock (Acute) Acute renal failure (Acute) Hyperkalemia (Acute) Sepsis (Acute) Panniculitis (Acute) JH (acute kidney injury) (Acute) Hyperkalemia (Acute) Hyponatremia (Acute) ARF (acute renal failure) (Resolved) Acute cystitis (Resolved) Decubitus ulcer of left ischium, stage 4 (Resolved) Hyperkalemia (Resolved) Hypoglycemia associated with type 2 diabetes mellitus (Resolved) Open wound of umbilical region (Resolved) Pressure sore of left ischium, unstageable (Resolved) Rhabdomyolysis (Resolved) Right ischial pressure sore, stage 2 (Resolved) Right ischial pressure sore, stage 3 (Resolved) Skin necrosis (Resolved) 1. Sepsis secondary to panniculitis/JH -She grew out Serratia as well as a gram-positive organism from her wound culture, continue with Zosyn -The enterococcus is sensitive to ampicillin -Surgical removal of her pannus is too complicated for this facility and therefore transfer to a tertiary care center was sought however Dr. Roshan Magdaleno at [facility] refused admission recommending that we call back once the cellulitis has been treated further -She has remained afebrile without a leukocytosis for over 72 hours -Initially her creatinine was elevated to 5.21, she has now improved to 1.62, will continue with IV fluids 2. Chronic normocytic normochromic anemia -She has had iron studies previously which were normal -Her hemoglobin today is down to 7.7 though she is asymptomatic -We will obtain stool occult, continue with her anticoagulation at this time for her A. fib -We will type and screen -A large component of this is likely dilutional given how dehydrated she was on admission 3. Paroxysmal A. fib/HTN -We will continue with her Eliquis for now, will monitor for any bleeding -Continue with metoprolol 4. Depression/anxiety -Stable -Continue with Celexa 5. Chronic pain -Continue with tizanidine, Neurontin and short acting oxycodone -If necessary can add back her MS Contin though we will have to monitor closely Disposition: Since [facility] refused transfer, will look into discharging to [facility] facility for therapy given her falls and can likely then follow-up as an outpatient for further treatment of her pannus DVT: Frank Code Visit Inpatient E&M: 40781 Subs Hosp L2
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
--- NOTE | 2019-05-11 11:15 | CASEMGMT ---
Per physician patient needs to go to a long term facility. SW met with patient and she refused a list of local SNF's and she refuses to go to a long-term. She said she has been in and out of nursing homes and is tired of it. She said why can't someone come in and change her dressings at home. KINJAL asked her if she has someone that can change it on the days home health cannot come out as they do not come out daily. She said it doesn't need to be done daily. KINJAL told her there is a good chance it will need changed daily. She said she does not care. The doctors can say what they want, but it is her life and her decision. SW told her it is her decision, but they are looking out for her health and well being. She said she has been in a wheelchair for 3 years and functions just like everyone else. She was irritated and plans on returning home with home health. KINJAL updated physician and RN CM. Physician is going to try to transfer her again. 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
--- NOTE | 2019-05-11 11:58 | PCM.PN.REN ---
Patient Problems: Active and Suspected Problems (Last Reviewed 04/08/19 @ 08:50 by Emi Keene) Skin necrosis (Acute) Pressure injury of right perineal ischial region, unstageable (Acute) Pressure injury of left perineal ischial region, unstageable (Acute) Septic shock (Acute) Acute renal failure (Acute) Hyperkalemia (Acute) Sepsis (Acute) Panniculitis (Acute) JH (acute kidney injury) (Acute) Hyperkalemia (Acute) Hyponatremia (Acute) Subjective: Transfer to PCU. Denies any abdominal pain, nausea or vomiting or shortness of breath. Oxygenation stable on room air. Remains on IV antibiotics for panniculitis. Transfer to tertiary care center canceled. BP stable. Tolerating diet well. - Physical Exam Vitals/I&O's: Vital Signs Temp Pulse Resp BP Pulse Ox 98.4 F 87 16 144/65 H 96 05/11/19 09:15 05/11/19 09:15 05/11/19 09:15 05/11/19 09:15 05/11/19 09:15 Oxygen Flow Rate (L/min) 2 Oxygen Delivery Method Room Air Weight: 141.2 kg Body Mass Index (BMI) 55.2 Finger Stick Blood Glucose 236 Intake and Output for Last 24 Hours 05/09/19 05/10/19 05/11/19 23:59 23:59 23:59 Intake Total 4650.0 / 4650.0 3717.25 / 3717.25 980 / 980 Output Total 1850 / 1850 1350 / 2200 1750 / 1750 Balance 2800.0 / 2800.0 2367.25 / 1517.25 -770 / -770 General: Alert, Oriented x3, Cooperative, No apparent distress Lungs: Clear to auscultation Cardiovascular: Regular rate Abdomen: Bowel Sounds Present, Soft, Non Tender, Distended, Obese - Super Extremities: No edema Skin: - - Panniculitis Musculoskeletal: - - Wheelchair-bound at home due to DJD Neurological: - - No tremor Psych/Mental Status: Normal Affect, Appropriate, Alert and oriented to time, place, person, mood and affect Microbiology Past 72 Hours 05/08/19 18:00 Wound - Abdominal Gram Stain - Final 05/08/19 18:00 Wound - Abdominal Wound Culture - Final Serratia fonticola Enterococcus faecalis Aerococcus viridans. Staphylococcus simulans 05/08/19 13:40 Blood Culture (Wb) - Anticubital Left Blood Culture - Preliminary No growth in 48 hours. 05/08/19 13:40 Blood Culture (Wb) - Anticubital Right Blood Culture - Preliminary No growth in 48 hours. Laboratory Results 05/10/19 12:15: Sodium 141, Potassium 3.6, Chloride 110 H, Carbon Dioxide 26.0, Anion Gap 5, BUN 58 H, Creatinine 2.18 H, Estim Creat Clear Calc 20.19, Est GFR (MDRD) Af Amer 29 L, Est GFR (MDRD) Non-Af 24 L, BUN/Creatinine Ratio 26.6 H, Glucose 125 H, Calcium 7.5 L 05/10/19 16:24: POC Glucose 166 H 05/10/19 21:25: POC Glucose 135 H 05/11/19 06:05: WBC 4.7, RBC 2.77 L, Hgb 7.7 L, Hct 24.4 L, MCV 88.1, MCH 27.8, MCHC 31.6 L, RDW Std Deviation 42.3, RDW Coeff of Radha 13.6, Plt Count 120 L, MPV 9.4, Immature Gran % (Auto) 0.400, Neut % (Auto) 68.9, Lymph % (Auto) 21.3, [place] % (Auto) 7.9, Eos % (Auto) 1.1, Baso % (Auto) 0.4, Absolute Neuts (auto) 3.2, Absolute Lymphs (auto) 1.00, Nucleated RBC % 0 05/11/19 06:05: Sodium 142, Potassium 3.5, Chloride 111 H, Carbon Dioxide 27.0, Anion Gap 4 L, BUN 44 H, Creatinine 1.62 H, Estim Creat Clear Calc 27.17, Est GFR (MDRD) Af Amer 41 L, Est GFR (MDRD) Non-Af 34 L, BUN/Creatinine Ratio 27.2 H, Glucose 112 H, Calcium 7.4 L, Phosphorus 2.6, Magnesium 1.6 05/11/19 06:47: POC Glucose 109 05/11/19 10:54: Blood Type Pending, Antibody Screen Pending Current Medications Acetaminophen (Tylenol) 650 mg PO Q6H PRN PRN PRN Reason: Non-cardiac pain (-02/12) Al Hydroxide/Mg Hydroxide (Mylanta Ii) 15 - 30 ml PO Q4H PRN PRN PRN Reason: INDIGESTION Albuterol Sulfate (Ventolin Aerosols) 2.5 mg INHALATION Q2H PRN PRN PRN Reason: dyspnea, wheezing Calamine/Phenol (Calmoseptine Ointment) 1 applic TOPICAL BID [facility]; Protocol Last Admin: 05/10/19 21:32 Dose: 1 applicatio Documented by: Citalopram Hydrobromide (Celexa) 20 mg PO DAILY [facility] Gabapentin (Neurontin) 100 mg PO BIDCM [facility] Last Admin: 05/11/19 09:07 Dose: 100 mg Documented by: Glucagon () 1 mg IM .X1 PRN PRN Reason: Hypoglycemia Dextrose (Dextrose 10%-Water) 250 mls @ 999 mls/hr IV .Q16M PRN; Protocol PRN Reason: HYPOGLYCEMIA Last Infusion: 05/08/19 14:11 Dose: Infused Documented by: Piperacillin Sod/Tazobactam (Sod 3.375 gm/ Sodium Chloride) 50 mls @ 12.5 mls/hr IV Q12 [facility] Last Admin: 05/11/19 09:11 Dose: 12.5 mls/hr Documented by: Sodium Chloride () 1,000 mls @ 100 mls/hr IV .Q10H [facility] Last Admin: 05/11/19 06:48 Dose: 100 mls/hr Documented by: Sodium Chloride () 250 mls @ 15 mls/hr IV .[id number] PRN PRN Reason: Saline Flush Last Infusion: 05/10/19 16:35 Dose: 0 mls/hr Documented by: Insulin Human Lispro (Humalog Kwikpen (Bkc)) 0 unit SC ACHS [facility]; Protocol Last Admin: 05/11/19 06:48 Dose: Not Given Documented by: Magnesium Hydroxide (Milk Of Magnesia) 30 ml PO DAILY PRN PRN Reason: Constipation Metoprolol Tartrate (Lopressor (Beta Agatha)) 50 mg PO DAILY [facility] Nystatin (Mycostatin Powder) 1 applic TOPICAL TID [facility]; Protocol Last Admin: 05/11/19 06:48 Dose: 1 applicatio Documented by: Ondansetron HCl (Zofran) 4 mg IV Q8H PRN PRN PRN Reason: NAUSEA/VOMITING Oxycodone HCl (Oxyir) 5 mg PO Q4H PRN PRN PRN Reason: Pain Score 6-10/10 Pantoprazole Sodium (Protonix) 20 mg PO BID [facility] Last Admin: 05/11/19 09:10 Dose: 20 mg Documented by: Senna/Docusate Sodium (Senokot-S, Kiana-Colace) 2 tablet PO BID PRN PRN PRN Reason: Constipation Sodium Chloride () 10 - 40 ml IV UD PRN PRN Reason: SALINE FLUSH Medical Necessity - Tobacco Use Smoking Status: Never smoker Tobacco Use: Non-smoker Assessment/Plan All Active Problems (Last Reviewed 04/08/19 @ 08:50 by Emi Keene) Skin necrosis (Acute) Pressure injury of right perineal ischial region, unstageable (Acute) Pressure injury of left perineal ischial region, unstageable (Acute) Septic shock (Acute) Acute renal failure (Acute) Hyperkalemia (Acute) Sepsis (Acute) Panniculitis (Acute) JH (acute kidney injury) (Acute) Hyperkalemia (Acute) Hyponatremia (Acute) ARF (acute renal failure) (Resolved) Acute cystitis (Resolved) Decubitus ulcer of left ischium, stage 4 (Resolved) Hyperkalemia (Resolved) Hypoglycemia associated with type 2 diabetes mellitus (Resolved) Open wound of umbilical region (Resolved) Pressure sore of left ischium, unstageable (Resolved) Rhabdomyolysis (Resolved) Right ischial pressure sore, stage 2 (Resolved) Right ischial pressure sore, stage 3 (Resolved) Skin necrosis (Resolved) 1. Acute kidney injury due to prerenal event, profound dehydration, hypotension. Creatinine improved to 1.62 today. Baseline creatinine 0.76 from December 24, 2017.. Stop IV fluids since patient tolerating diet well. 2. Sepsis syndrome blood culture no growth so far. 3. leukocytosis from acute panniculitis 4. Hyperkalemia due to JH resolved with medical management. Avoid NSAIDs 5. Anxiety/depression primary service management 6. Hyponatremia resolved 7. Super morbid obesity 8. debilitation wheelchair-bound chronically at home alone.
--- NOTE | 2019-05-11 13:55 | DS.PCM_ITS ---
Discharge Date and Diagnosis - Problem List Patient Problems: Active and Suspected Problems (Last Reviewed 04/08/19 @ 08:50 by Emi Keene) Acute renal failure (Acute) Hyperkalemia (Acute) Sepsis (Acute) Panniculitis (Acute) JH (acute kidney injury) (Acute) Hyperkalemia (Acute) Hyponatremia (Acute) Date of Admission: 05/08/19 Date of Discharge: 05/11/19 - Primary Discharge Diagnosis Active and Suspected Problems (Last Reviewed 04/08/19 @ 08:50 by Emi Keene) Acute renal failure (Acute) Hyperkalemia (Acute) Sepsis (Acute) Panniculitis (Acute) JH (acute kidney injury) (Acute) Hyperkalemia (Acute) Hyponatremia (Acute) - Secondary Discharge Diagnosis Chronic Problems (Last Reviewed 04/08/19 @ 08:50 by Emi Keene) GERD (gastroesophageal reflux disease) (Chronic) Anxiety and depression (Chronic) Chronic pain syndrome (Chronic) Morbid obesity (Chronic) Paroxysmal atrial fibrillation (Chronic) Essential (primary) hypertension (Chronic) Hyperlipidemia (Chronic) retirement (current) use of anticoagulants (Chronic) Eliquis for atrial fibrillation Abdominal panniculus (Chronic) Edema of abdominal wall (Chronic) Intertrigo (Chronic) abdominal wall skin crease intertrigo Panniculitis (Chronic) Hospital Course and Treatment Imaging Results: CT Abd/Pelvis: IMPRESSION: 1. Findings consistent with cellulitis with inflammatory stranding infiltrating the low anterior abdominal wall panniculus as well as the notably swollen mons pubis and external labia/perineum, greater on the right. Additional edematous/inflammatory stranding also seen in the subcutaneous tissues of the visualized right thigh. 2. Atherosclerotic calcifications noted in the external iliac and visualized femoral arteries. The abdominal aorta is unremarkable. 3. Prior cholecystectomy. 4. Borderline thyromegaly. 5. Nidus of parenchymal calcification in the anterior mid to lower pole of left kidney adjacent to a site of cortical thinning. No hydronephrosis. 6. A few partially calcified retroperitoneal lymph nodes are again noted, a node along the right common iliac artery showing mild grossly previous study, still nonspecific in overall appearance. 7. Degenerative changes of the spine and bilateral sacroiliac joints. Consultations 05/08/19 14:58 Consult: Onc/Wound/treatment plant mechanic Routine Comment: ICU Nephrology Operations: None Procedures: None Summary of Care Provided: Per HPI: The patient is a 64 y/o F w/ PMHx: Morbid Obesity, PAF, Hx ischial pressure sores, HTN, HLD, Anxiety and Depression, Chronic anemia, Chronic thrombocytopenia, Diabetes mellitus type II, Wheelchair bound secondary to weight who presents to the [facility] ED on 05/08/19 with noted history of falling from chair 3x/2 week period with increased progressively worsening fatigue, malaise, decreased oral intake with no fevers or chills, but recurrent fall this am with noted blood on the floor prompting her to present to the ED. She uses a wheelchair chronically and does perform lists per her report. She notes having a sister who has seen her pannus recently and noted that there was redness and induration. She notes discomfort w/ palpation of the region. She notes she was supposed to have upcoming panniculectomy with Dr. Valle on 05/19/18. Work-up in the ED included T 97.5, heart rate 100, BP initially 98/84 with repeat 122/68, respiratory rate 18, 95% on room air, CBC with WBC 15.2, hemoglobin 11, platelet 251 with left shift, BMP with sodium 127, potassium 6.2, chloride 95, BUN/creatinine 87/5.21, glucose 216, CT abdomen and pelvis with findings consistent with cellulitis but inflammatory stranding infiltrating the low anterior abdominal wall panniculus as well as a notably swollen mons pubis and external labia/perineum greater on the right with additional edematous and inflammatory stranding also seen in the subcutaneous tissues of visualized right thigh, atherosclerotic calcifications noted in the external iliac and visualized femoral arteries with abdominal aorta unremarkable, nidus of parenchymal calcifcation in the anterior mid to lower pole of the left kidney EKG w/ SR with minimal peaked T-waves. In the ED patient ministered clindamycin, normal saline, dextrose, insulin as well as Kayexalate. Hospital Course: 1. Sepsis secondary to panniculitis/JH -She grew out Serratia as well as a gram-positive organism from her wound culture, continue with Zosyn -The enterococcus is sensitive to ampicillin -Surgical removal of her pannus is too complicated for this facility and therefore transfer to a tertiary care center was sought however Dr. Roshan Magdaleno at [facility] refused admission over the weekend because of her medical stability, especially since surgical intervention wasnt acutely necessary at that time, but that he was willing to see the patient once stable early in the week -She has remained afebrile without a leukocytosis for over 72 hours and she is no longer hypotensive -Initially her creatinine was elevated to 5.21, she has now improved to 1.62, will continue with IV fluids 2. Chronic normocytic normochromic anemia -She has had iron studies previously which were normal -Her hemoglobin today is down to 7.7 though she is asymptomatic -We will obtain stool occult, her home eliquis was not given this morning -We will type and screen -A large component of this is likely dilutional given how dehydrated she was on admission 3. Paroxysmal A. fib/HTN -Her eliquis was not given this morning, and will hold given the possibility of surgery -Continue with metoprolol 4. Depression/anxiety -Stable -Continue with Celexa 5. Chronic pain -Continue with tizanidine, Neurontin and short acting oxycodone -If necessary can add back her MS Contin though we will have to monitor closely Dispo: Eleanor belle for surgical intervention of her panniculitis DVT: Hold eliquis for surgical intervention Patient Problems: Active and Suspected Problems (Last Reviewed 04/08/19 @ 08:50 by Emi Keene) Acute renal failure (Acute) Hyperkalemia (Acute) Sepsis (Acute) Panniculitis (Acute) JH (acute kidney injury) (Acute) Hyperkalemia (Acute) Hyponatremia (Acute) - Physical Exam Vitals/I&O's: Vital Signs Temp Pulse Resp BP Pulse Ox 98.4 F 87 16 144/65 H 96 05/11/19 09:15 05/11/19 09:15 05/11/19 09:15 05/11/19 09:15 05/11/19 09:15 Oxygen Flow Rate (L/min) 2 Oxygen Delivery Method Room Air Weight: 311 lb 4.683 oz Body Mass Index (BMI) 55.2 Finger Stick Blood Glucose 236 Intake and Output for Last 24 Hours 05/09/19 05/10/19 05/11/19 23:59 23:59 23:59 Intake Total 4650.0 / 4650.0 3717.25 / 3717.25 980 / 980 Output Total 1850 / 1850 1350 / 2200 1750 / 1750 Balance 2800.0 / 2800.0 2367.25 / 1517.25 -770 / -770 Microbiology Past 72 Hours 05/08/19 18:00 Wound - Abdominal Gram Stain - Final 05/08/19 18:00 Wound - Abdominal Wound Culture - Final Serratia fonticola Enterococcus faecalis Aerococcus viridans. Staphylococcus simulans 05/08/19 13:40 Blood Culture (Wb) - Anticubital Left Blood Culture - Preliminary No growth in 48 hours. 05/08/19 13:40 Blood Culture (Wb) - Anticubital Right Blood Culture - Preliminary No growth in 48 hours. Laboratory Results 05/10/19 16:24: POC Glucose 166 H 05/10/19 21:25: POC Glucose 135 H 05/11/19 06:05: WBC 4.7, RBC 2.77 L, Hgb 7.7 L, Hct 24.4 L, MCV 88.1, MCH 27.8, MCHC 31.6 L, RDW Std Deviation 42.3, RDW Coeff of Radha 13.6, Plt Count 120 L, MPV 9.4, Immature Gran % (Auto) 0.400, Neut % (Auto) 68.9, Lymph % (Auto) 21.3, [place] % (Auto) 7.9, Eos % (Auto) 1.1, Baso % (Auto) 0.4, Absolute Neuts (auto) 3.2, Absolute Lymphs (auto) 1.00, Nucleated RBC % 0 05/11/19 06:05: Sodium 142, Potassium 3.5, Chloride 111 H, Carbon Dioxide 27.0, Anion Gap 4 L, BUN 44 H, Creatinine 1.62 H, Estim Creat Clear Calc 27.17, Est GFR (MDRD) Af Amer 41 L, Est GFR (MDRD) Non-Af 34 L, BUN/Creatinine Ratio 27.2 H , Glucose 112 H, Calcium 7.4 L, Phosphorus 2.6, Magnesium 1.6 05/11/19 06:47: POC Glucose 109 05/11/19 10:54: Blood Type A POSITIVE, Antibody Screen NEGATIVE Current Medications Acetaminophen (Tylenol) 650 mg PO Q6H PRN PRN PRN Reason: Non-cardiac pain (-02/12) Al Hydroxide/Mg Hydroxide (Mylanta Ii) 15 - 30 ml PO Q4H PRN PRN PRN Reason: INDIGESTION Albuterol Sulfate (Ventolin Aerosols) 2.5 mg INHALATION Q2H PRN PRN PRN Reason: dyspnea, wheezing Calamine/Phenol (Calmoseptine Ointment) 1 applic TOPICAL BID [facility]; Protocol Last Admin: 05/10/19 21:32 Dose: 1 applicatio Documented by: Citalopram Hydrobromide (Celexa) 20 mg PO DAILY [facility] Gabapentin (Neurontin) 100 mg PO BIDCM [facility] Last Admin: 05/11/19 09:07 Dose: 100 mg Documented by: Glucagon () 1 mg IM .X1 PRN PRN Reason: Hypoglycemia Dextrose (Dextrose 10%-Water) 250 mls @ 999 mls/hr IV .Q16M PRN; Protocol PRN Reason: HYPOGLYCEMIA Last Infusion: 05/08/19 14:11 Dose: Infused Documented by: Piperacillin Sod/Tazobactam (Sod 3.375 gm/ Sodium Chloride) 50 mls @ 12.5 mls/hr IV Q12 [facility] Last Admin: 05/11/19 09:11 Dose: 12.5 mls/hr Documented by: Sodium Chloride () 250 mls @ 15 mls/hr IV .[id number] PRN PRN Reason: Saline Flush Last Infusion: 05/10/19 16:35 Dose: 0 mls/hr Documented by: Insulin Human Lispro (Humalog Kwikpen (Bkc)) 0 unit SC ACHS [facility]; Protocol Last Admin: 05/11/19 06:48 Dose: Not Given Documented by: Magnesium Hydroxide (Milk Of Magnesia) 30 ml PO DAILY PRN PRN Reason: Constipation Metoprolol Tartrate (Lopressor (Beta Agatha)) 50 mg PO DAILY [facility] Nystatin (Mycostatin Powder) 1 applic TOPICAL TID [facility]; Protocol Last Admin: 05/11/19 06:48 Dose: 1 applicatio Documented by: Ondansetron HCl (Zofran) 4 mg IV Q8H PRN PRN PRN Reason: NAUSEA/VOMITING Oxycodone HCl (Oxyir) 5 mg PO Q4H PRN PRN PRN Reason: Pain Score 6-10/10 Pantoprazole Sodium (Protonix) 20 mg PO BID [facility] Last Admin: 05/11/19 09:10 Dose: 20 mg Documented by: Senna/Docusate Sodium (Senokot-S, Kiana-Colace) 2 tablet PO BID PRN PRN PRN Reason: Constipation Sodium Chloride () 10 - 40 ml IV UD PRN PRN Reason: SALINE FLUSH Home Medications: Medications to take at Discharge Citalopram [Celexa] 20 mg PO DAILY 07/10/16 Gabapentin [Neurontin] 300 mg PO BID 07/22/17 Apixaban [Eliquis] 5 mg PO BID tab 12/24/17 Morphine Sulfate [Ms Contin] 60 mg PO BID 2 Days #4 tablet.er 12/24/17 Menthol/Lanolin/Calamine/Znox [Calmoseptine Ointment] 1 applic TOPICAL BID 05/08/19 Metoprolol Tartrate 100 mg PO DINNER 05/08/19 Metoprolol Tartrate [Lopressor (beta agatha)] 50 mg PO BREAKFAST 05/08/19 Tizanidine HCl 2 - 4 mg PO BID 05/08/19 Primary Care Physician: Brittany Sorenson MD [Primary Care Provider] - Please follow up with your Primary Care Physician in: 3-5 days Disposition: Acute care Hospital Minutes spent on discharge:: 35 Patient Condition:: Stable Medical Necessity - Tobacco Use Smoking Status: Never smoker Tobacco Use: Non-smoker Meaningful Use Info Meaningful Use Diagnoses (Choose all that apply): None applicable Code Visit Inpatient E&M: 96459 Disch Hosp
--- NOTE | 2019-05-11 14:22 | CHAPLAIN ---
Type of Pastoral Visit _x__ Initial Visit ___ Follow-up Visit ___ On-call Visit ___ General Patient Visit ___ Spiritual Assessment ___ Family Conference ___ Bereavement ___ Rapid Response ___ Code Blue ___ Other (describe below) Pastoral Care Referral From _x__ Patient ___ Family ___ Nurse ___ Physician ___ Rail Filler ___ Catalyst Manufacturing Operator ___ Other (describe below) Sacrament/Intervention _x__ Active listening ___ Anointing ___ Worship ___ Bereavement ___ Communion ___ Kavita exploration ___ _x__ Life review _x__ Prayer ___ Reconciliation ___ Sacrament of Sick _x__ Supportive presence ___ Wedding ___ Other (describe below) Pastoral Comments
[2019-05-11] MEDS: Citalopram 20 MG Tablet PO (15:18)
[2019-05-11] MEDS: Metoprolol Tartrate 50 MG Tablet PO (15:18)
[2019-05-11] MEDS: Menthol/Lanolin/Calamine/Znox 113 GM Tube 1 APPLIC TOPICAL (15:19)
--- NOTE | 2019-05-11 15:22 | NURSING ---
wound photo: abdomen
--- NOTE | 2019-05-11 15:22 | NURSING ---
wound photo: posterior mons pubis/left posterior thigh/left ischium
--- NOTE | 2019-05-11 15:24 | NURSING ---
wound photo: right posterior thigh
--- NOTE | 2019-05-11 15:42 | NURSING ---
REPORT CALLED TO [facility] [phone] SISTER PACKING BELONGINGS AND AWARE OF TRANSFER CONSENT SIGNED
[2019-05-11 16:11] LABS: Bedside Glucose 137 mg/dL (70-110)
[2019-05-11] MEDS: oxyCODONE 5 MG Tablet PO (16:18)
== END 2019-05-11 18:30 | disposition short-term general hospital (02) | DRG 871 ==
LOC: ED 13:15 → PCU 13:53 → ICU 22:54 → PCU 05-10 11:36
PROVIDERS: Hospitalist; Internal Medicine; Internal Medicine Critical Care Medicine; Internal Medicine Nephrology; Admitting Provider Family Medicine; Emergency Provider Emergency Medicine; Family Provider Internal Medicine; PCP Internal Medicine; Referring Provider Family Medicine; Visit Provider Family Medicine
DX: A41.9 Sepsis, unspecified organism (principal); R65.21 Severe sepsis with septic shock; G93.41 Metabolic encephalopathy; E87.1 Hypo-osmolality and hyponatremia; N17.9 Acute kidney failure, unspecified; Z68.43 Body mass index [BMI] 50.0-59.9, adult; M79.3 Panniculitis, unspecified; E87.5 Hyperkalemia; E86.0 Dehydration; I10 Essential (primary) hypertension; E66.01 Morbid (severe) obesity due to excess calories; G89.4 Chronic pain syndrome; I48.0 Paroxysmal atrial fibrillation; K21.9 Gastro-esophageal reflux disease without esophagitis; Z79.01 Long term (current) use of anticoagulants; E78.5 Hyperlipidemia, unspecified; L30.4 Erythema intertrigo; F32.9 Major depressive disorder, single episode, unspecified; F41.9 Anxiety disorder, unspecified; B95.2 Enterococcus as the cause of diseases classified elsewhere; B96.89 Other specified bacterial agents as the cause of diseases classified elsewhere; D64.9 Anemia, unspecified; Z99.3 Dependence on wheelchair
CPT/HCPCS: 36415; 36600; 74176; 76770; 80048; 80202; 81001; 82140; 82570; 82803; 82962; 83036; 83605; 83735; 84100; 84300; 84484; 85025; 86850; 86900; 86901; 87040; 87070; 87077; 87186; 87205; 87640; 93005; 94002; 94003; 99251; 99285; J7030; J7040; J7050; A4216; G0463

== ENCOUNTER 2019-06-15 15:25 | Inpatient (IN) | payer MEDICARE, SELFPAY ==
[2019-05-08 14:46] VITALS: BMI 55.2
[2019-06-15] VITALS (9 sets, daily range): BP systolic 101–141; BP diastolic 57–95; PULSE 97–117; RESP 15–18; TEMP 36.6–36.8; O2SAT 95–100; BMI 52.4; BMI 51.0
--- NOTE | 2019-06-15 15:36 | ED.DCSUM_ITS ---
History of Present Illness Chief Complaint: Weakness Informant: Patient Onset: Today Narrative: Patient states she was discharged on the [facility] 3 days ago. She been doing well in physical therapy there. She states is been using her Rollator at home and doing well. At 2:00 this morning she went to the bathroom. She leaned over to pick something up off the floor and felt her back tighten up. She was unable to sit upright or get off the commode. She presents to the ER for 13 hours later for evaluation. Apparently the patient sister called to check on her and when she was unable to answer her phone sent someone to check on her. Patient reports pain in her arms and legs. She does normally take MS Contin regularly and was not able to take her meds today. - Past Medical History (1) Anxiety and depression Status: Chronic (2) Chronic pain syndrome Status: Chronic (3) Essential (primary) hypertension Status: Chronic (4) GERD (gastroesophageal reflux disease) Status: Chronic (5) Hyperlipidemia Status: Chronic (6) long-term (current) use of anticoagulants Status: Chronic Comment: Eliquis for atrial fibrillation (7) Morbid obesity Status: Chronic (8) Paroxysmal atrial fibrillation Status: Chronic Past Medical History - Allergies and Home Meds Allergies/Adverse Reactions: Allergies amoxicillin Adverse Reaction (Verified 06/15/19 15:33) Other latex Adverse Reaction (Verified 06/15/19 15:33) Other Primary Care Physician: Brittany Sorenson MD [Primary Care Provider] - Prior records reviewed: Yes Surgical History: cholecystectomy, herniorrhaphy, - - Excision left ischial pressure sore into the muscle, Stage IV, and excision right ischial pressure sore into the subcutaneous tissue, Stage III, with 6 cm layered closure - 07/25/17 Lives: Alone Smoking Status: Never smoker - Family History Maternal Family History: Family History (Last Reviewed 04/08/19 @ 08:50 by Emi Keene) Father Diabetes Mother Arthritis Hypertension Heart disease Sister Arthritis Diabetes Heart disease Hypertension High cholesterol Family History: Reports: High Cholesterol, Heart Disease, Hypertension Paternal Family History: Family History (Last Reviewed 04/08/19 @ 08:50 by mEi Keene) Father Diabetes Mother Arthritis Hypertension Heart disease Sister Arthritis Diabetes Heart disease Hypertension High cholesterol Family History: Reports: Diabetes Review of Systems General: Denies: Chills, Fever Eyes: Denies: Visual changes - bilaterally ENT: Denies: Bilateral ear pain Cardiovascular: Denies: Chest pain, Palpitations Respiratory: Denies: Dyspnea, Cough Gastrointestinal: Denies: Abdominal pain, Nausea, Vomiting, Diarrhea Musculoskeletal: Reports: Myalgias, Extremity Pain Skin: Denies: Rash Neurological: Denies: Headache Hematologic: Denies: Easy bruising Allergy: Denies: Uticaria Physical Exam Vital Signs/Narrative: Vital Signs Temp Pulse Resp BP Pulse Ox 06/15/19 15:31 97.9 F 06/15/19 15:27 97.9 F 97 18 132/95 H 96 Inital Vital Signs reviewed: Yes General: Well nourished, Well developed Head: Normocephalic ENT: Moist mucous membranes Neck: Supple Cardiovascular: Regular rate, Regular rhythm Respiratory: No distress, CTA bilaterally Abdomen: Soft, Nontender Extremities: Nontender Skin: Normal color Neurological: Alert, Oriented x3 Psychological: Normal affect Diagnostic/Tx/Re-eval Laboratory Results 06/15/19 06/15/19 06/15/19 15:50 16:15 16:15 WBC 22.2 H RBC 4.18 L Hgb 12.0 Hct 37.1 MCV 88.8 MCH 28.7 MCHC 32.3 RDW Std Deviation 49.7 H RDW Coeff of Radha 15.3 H Plt Count 247 MPV 10.3 Immature Gran % (Auto) 1.700 H Neut % (Auto) 84.2 H Lymph % (Auto) 6.0 L Corson % (Auto) 7.6 Eos % (Auto) 0.2 Baso % (Auto) 0.3 Absolute Neuts (auto) 18.7 H Absolute Lymphs (auto) 1.32 Nucleated RBC % 0 Differential Comment SCANNED Diff Path Review May foll Sodium 126 L Potassium 5.6 H Chloride 94 L Carbon Dioxide 20.0 L Anion Gap 12 BUN 59 H Creatinine 4.42 H Estim Creat Clear Calc 9.96 Est GFR (MDRD) Af Amer 13 L Est GFR (MDRD) Non-Af 11 L BUN/Creatinine Ratio 13.3 Glucose 227 H Calcium 9.3 Urine Color Yellow Urine Clarity Cloudy Urine pH 5.0 Ur Specific Schurz 1.025 Urine Protein 15 H Urine Glucose (UA) Normal Urine Ketones 5 H Urine Occult Blood 150 H Urine Nitrite Negative Urine Bilirubin 1 H Urine Urobilinogen 1 H Ur Leukocyte Esterase 500 H Urine RBC 0-5 SEEN Urine WBC 10-25 SEEN Ur Squamous Epith Cells 10-25 SEEN Urine Bacteria 0 SEEN Urine Mucus 0 SEEN Urine Yeast 2+ - Medical Decision Making Upon completion of labs patient is noted to have recurrent renal failure and hyponatremia. IV fluids are ordered. Patient's urinalysis does show 500 leukocyte esterase, however there are just as many epithelial cells as there are white cells in the microscopic study. 0 bacteria are noted and no nitrites. Patient will require admission for IV fluids and correction of her creatinine and sodium. Patient does feel that she would like any to go back to [facility] for rehab. Social work [facility] contact [facility] and she is still within her 30-day window to be readmitted there as needed. ED Disposition - Plan for ED Patient: Disposition: Acute Care Hospital [facility] Diagnosis: Hyponatremia, Acute renal failure Referrals: Brittany Sorenson MD [Primary Care Provider] -
--- NOTE | 2019-06-15 15:48 | CM.ED ---
SOCIAL WORK INFORMANT: DR. LUCERO REASON FOR REFERRAL: D/C PLANNING UPDATED BY DR. LUCERO, PATIENT JUST [facility] AND IS FEELING LIKE NEEDS TO RETURN. DR. LUCERO COMPLETING WORK UP. CALL TO [facility], SPOKE WITH DAPHNE. PER DAPHNE, PATIENT IS WITHIN HER 30 DAY WINDOW AND WOULD BE ABLE TO RETURN TO THE [facility] FROM THE EMERGENCY DEPARTMENT. DAPHNE REPORTS FACILITY WOULD JUST NEED AN UPDATED MEDICATION LIST. DR. LUCERO UPDATED ON THE ABOVE. PLAN: TBD PENDING WORK UP. GEORGIE JOSHUA, LITHOGRAPHIC STRIPPER.
[2019-06-15 16:01] LABS: Bacteria 0 SEEN /hpf (None Seen); Mucous, Urine 0 SEEN /hpf (<or=2+)
[2019-06-15 16:32] LABS: Color, Urine Yellow (Yellow); Glucose, Dipstick Normal (Normal); Ketone-Dipstick 5 mg/dl (Negative); Leukocyte Esterase-Dipstick 500 /ul (Negative); Nitrite-Dipstick Negative (Negative); Occult Blood-Urine 150 /ul (Negative); Protein-Dipstick 15 mg/dl (Negative); Specific Gravity, Urine 1.025 (1.002-1.030); Urine Clarity Cloudy (Clear); Urine Urobilinogen 1 mg/dl (Normal)
[2019-06-15 16:33] LABS: Absolute Lymphocyte Count 1.32 X10^3/uL (0.83-4.51); Absolute Neutrophil Count 18.7 X10^3/uL (2.0-7.7); Basophil# 0.06 X10^3/uL; Basophil% 0.3 % (0-1); Eosinophil# 0.04 X10^3/uL; Eosinophils% 0.2 % (0-5); Hematocrit 37.1 % (37-47); Lymphocyte # 1.32 X10^3/ul (4.0); Mean Corp Hgb Conc 32.3 g/dL (32-36); Mean Corpuscular Hgb 28.7 pg (27.0-32.0); Mean Corpuscular Volume 88.8 fL (81-99); Mean Platelet Vol. 10.3 fl (6.2-12.0); Monocyte# 1.69 X10^3/uL; Monocyte% 7.6 % (0-10); NRBC Flagged by Analyzer 0 % (0-5); Neutrophil # 18.67 X10^3/uL (2.7-7.7); Neutrophil % 84.2 % (47-70); POSITIVE DIFFERENTIAL YES; POSITIVE MORPHOLOGY YES; Platelet Count 247 K/mm3 (150-450); RBC Distribution Width CV 15.3 % (11.6-14.6); RBC Distribution Width SD 49.7 fl (35.1-43.9); Red Blood Count 4.18 M/mm3 (4.2-5.4); White Blood Count 22.2 K/mm3 (4.4-11.0)
[2019-06-15 16:42] LABS: Anion Gap 12 (5-15); BUN 59 mg/dL (7-18); BUN/Creat Ratio 13.3 RATIO (10-20); Calcium,Total 9.3 mg/dL (8.5-10.1); Chloride 94 mmol/L (98-107); Creatinine, Serum 4.42 mg/dL (0.55-1.02); EST Glomerular Filtration Rate 11 mL/min (>60); Est Glom Filt Rate - Afr Amer 13 mL/min (>60); Estimated Creatinine Clearance 9.96 ml/min; Glucose 227 mg/dL (74-106); Potassium 5.6 mmol/L (3.5-5.1); Sodium Level 126 mmol/L (136-145)
[2019-06-15 16:45] LABS: Differential Indicated SCAN CRITERIA MET
[2019-06-15 16:52] LABS: Urine Bilirubin Dipstick 1 mg/dL (Negative)
[2019-06-15 17:09] LABS: Red Blood Cells-Urine 0-5 SEEN /hpf (0-5); Squamous Epithelial Cells - UA 10-25 SEEN /hpf (5-10); White Blood Cells 10-25 SEEN /hpf (0-5); Yeast-Urine 2+ /hpf (None Seen)
[2019-06-15 17:11] LABS: Differential Comment SCANNED
[2019-06-15] MEDS: 0.9% Normal Saline 1,000 ML 150 ML IV ×2 (17:15→23:43)
--- NOTE | 2019-06-15 17:35 | EKG12_ITS ---
Test Reason : WEAKNESS Blood Pressure : / mmHG Vent. Rate : 109 BPM Atrial Rate : 109 BPM P-R Int : 202 ms QRS Dur : 080 ms QT Int : 328 ms P-R-T Axes : 038 -02 066 degrees QTc Int : 441 ms Sinus tachycardia Possible Anterolateral infarct , age undetermined Abnormal ECG Confirmed by CIRILO FAGAN, DENISHA ([id number]), mapping editor MOHAN BRUNSON ([id number]) on 06/17/2019 9:51:33 AM Referred By: NIC Confirmed By:DENISHA KERR MD
--- NOTE | 2019-06-15 17:35 | HP.PCM_ITS ---
History of Present Illness Date of Admission: 06/15/19 Chief Complaint: weakness The patient is a 64 year old F with an extensive PMH as outlined. She was admitted through the ED on 06/15/2019 with a complaint of weakness. Patient was just discharged from the [facility] last Saturday06/12/2019. Patient states she went to use the toilet last night but felt too weak to get up. She was unable to get on the toilet all night; her wound care nurse was unable to get through to her and so the wound care nurse called patient's sister. Patient sister called the EMS in the afternoon to go check on her and patient was found still sitting on the toilet. She denied any fever or chills, lightheadedness or dizziness, palpitations, nausea vomiting or diarrhea and did complain of some pain in her neck as well as her arms and legs due to her having sat on the toilet for over 13 hours. In the ED, vitals were significant for tachycardia with heart rate of 109 and respiratory to 15. Chemistry showed sodium of 126 with potassium of 5.6 and bicarb of 20. Creatinine was 4.42. WBC was 22; of note she has not been on any steroids recently. Hemoglobin was 12. UA showed leukocyte esterase of 500 with bacteria of 0 and WBC of 10-25 but also had epithelial cells of 10-25. She has been admitted to be managed for JH, hyponatremia and hyperkalemia as well as sepsis of unclear etiology. 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) Eliquis for atrial fibrillation Abdominal panniculus (Chronic) Edema of abdominal wall (Chronic) Intertrigo (Chronic) abdominal wall skin crease intertrigo Panniculitis (Chronic) Medical History: Medical History (Last Reviewed 04/08/19 @ 08:50 by Emi Keene) Morbid obesity (Chronic) E66.01 Paroxysmal atrial fibrillation (Chronic) I48.0 Essential (primary) hypertension (Chronic) I10 Hyperlipidemia (Chronic) E78.5 Abdominal panniculus (Chronic) E65 Edema of abdominal wall (Chronic) R60.0 Intertrigo (Chronic) L30.4 abdominal wall skin crease intertrigo Panniculitis (Chronic) M79.3 Abdominal wall pain in both lower quadrants R10.31, R10.32 Anemia D64.9 Arthritis M19.90 Atrial fibrillation with rapid ventricular response Onset Date: 12/2017 I48.91 Back problem M53.9 Breast lump in female N63.0 Depression F32.9 Difficulty balancing when standing R26.89 and when ambulating Excessive weight loss R63.4 70 lbs over last year Late effect of medical and surgical care complication T88.9XXS painful insulin nodules abdominal wall Neuropathy G62.9 Normochromic normocytic anemia D64.9 Osteoarthritis M19.90 Panniculitis M79.3 Pressure sore of left ischium, unstageable L89.320 Pressure ulcer L89.90 Right ischial pressure sore, stage 2 L89.312 Thrombocytopenia D69.6 Type 2 diabetes mellitus E11.9 Umbilical hernia K42.9 History of blood transfusion Z92.89 Kidney failure N19 Rupture of hernia K46.[address] OAKLEY UTI (urinary tract infection) N39.0 Allergies amoxicillin Adverse Reaction (Verified 06/15/19 15:33) Other latex Adverse Reaction (Verified 06/15/19 15:33) Other Home Medications: Ambulatory Orders Medication Instructions Recorded Citalopram [Celexa] 20 mg PO DAILY 07/10/16 Gabapentin [Neurontin] 300 mg PO BID 07/22/17 Apixaban [Eliquis] 5 mg PO BID tab 12/24/17 Morphine Sulfate [Ms Contin] 60 mg PO BID 2 Days #4 tablet.er 12/24/17 Menthol/Lanolin/Calamine/Znox 1 applic TOPICAL BID 05/08/19 [Calmoseptine Ointment] Metoprolol Tartrate 100 mg PO DINNER 05/08/19 Metoprolol Tartrate [Lopressor 50 mg PO BREAKFAST 05/08/19 (beta tristen)] Tizanidine HCl 2 - 4 mg PO BID 05/08/19 Surgical History: Surgical History (Last Reviewed 04/08/19 @ 08:50 by Emi Keene) Bilateral ischial wound debridement History of herniorrhaphy Z98.890, Z87.19 Hx of cholecystectomy Z90.49 Surgical History: cholecystectomy, herniorrhaphy, - - Excision left ischial pressure sore into the muscle, Stage IV, and excision right ischial pressure sore into the subcutaneous tissue, Stage III, with 6 cm layered closure - 07/25/17 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, Depression 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 Lives: Alone Smoking Status: Never smoker - *Family History Paternal Family History: Family History (Last Reviewed 04/08/19 @ 08:50 by Emi Keene) Father Diabetes Mother Arthritis Hypertension Heart disease Sister Arthritis Diabetes Heart disease Hypertension High cholesterol History Items: Diabetes Maternal Family History: Family History (Last Reviewed 04/08/19 @ 08:50 by Emi Keene) Father Diabetes Mother Arthritis Hypertension Heart disease Sister Arthritis Diabetes Heart disease Hypertension High cholesterol History Items: High Cholesterol, Heart Disease, Hypertension Review of Systems Constitutional: Reports: Malaise, Weakness, Fatigue. Denies: Anorexia, Chills, Fever Eyes: Denies: Blurred vision HEENT: Denies: Head Aches, Sinus Congestion, Sinus Drainage Cardiovascular: Denies: Chest Pain, Palpitations Respiratory: Denies: Cough, Shortness of Breath, Shortness of breath at rest, Shortness of breath upon exertion, Sputum production Gastrointestinal: Denies: Abdominal Pain, Nausea, Vomiting Genitourinary: Denies: Dysuria Musculoskeletal: Denies: Joint Pain, Joint Tenderness Skin: Denies: Rash, Wounds Neurological: Denies: Numbness, Tingling, Focal weakness Psychiatric: Denies: Anxiety, Depression, Homicidal Ideations, Suicidal Ideations Hematologic/ Lymphatic: Denies: Easy Bruising, Easy Bleeding VTE Information - Inpt Only VTE Present on Admission: No VTE Pharm Prophylaxis ordered?: Yes Patient Problems: Active and Suspected Problems (Last Reviewed 04/08/19 @ 08:50 by Emi Keene) Acute renal failure (Acute) Hyponatremia (Acute) - Physical Exam Vitals/I&O's: Vital Signs Temp Pulse Resp BP Pulse Ox 97.9 F 97 18 132/95 H 96 06/15/19 15:31 06/15/19 15:27 06/15/19 15:27 06/15/19 15:27 06/15/19 15:27 Oxygen Delivery Method Room Air Weight: 277 lb 12.519 oz Body Mass Index (BMI) 52.4 Finger Stick Blood Glucose 236 General: Alert, Oriented x3, Cooperative, No apparent distress, Lethargic HEENT: Atraumatic, PERRLA, EOMI, Normocephalic Oral: Dry Mucosa Neck: Supple, No JVD, Negative Carotid Bruits Lungs: - - diminished breath sounds in lower lung schwarz bibasally, no wheezes or crackles. Cardiovascular: Normal S1, Normal S2, No murmurs, Tachycardic Abdomen: Bowel Sounds Present, Soft, Non Tender Extremities: No clubbing, No cyanosis, No edema, Capillary Refill Less than 3 Seconds Skin: No rashes, No breakdown Musculoskeletal: No Tenderness to Palpation of Joints or Extremities, - - large abdomnal pannus; nontender. Small, healing ulcer on inferior portion of pannus Lymphatic: No Cervical, Supraclavicular, or Inguinal Adenopathy Neurological: Cranial nerves II-XII grossly intact, Motor Exam 5/5 strength throughout Psych/Mental Status: Normal Affect, Appropriate, Alert and oriented to time, place, person, mood and affect Laboratory Results 06/15/19 15:50: Urine Color Yellow, Urine Clarity Cloudy, Urine pH 5.0, Ur Specific Bogard 1.025, Urine Protein 15 H, Urine Glucose (UA) Normal, Urine Ketones 5 H, Urine Occult Blood 150 H, Urine Nitrite Negative, Urine Bilirubin 1 H, Urine Urobilinogen 1 H, Ur Leukocyte Esterase 500 H, Urine RBC 0-5 SEEN, Urine WBC 10-25 SEEN, Ur Squamous Epith Cells 10-25 SEEN, Urine Bacteria 0 SEEN, Urine Mucus 0 SEEN, Urine Yeast 2+ 06/15/19 16:15: WBC 22.2 H, RBC 4.18 L, Hgb 12.0, Hct 37.1, MCV 88.8, MCH 28.7, MCHC 32.3, RDW Std Deviation 49.7 H, RDW Coeff of Radha 15.3 H, Plt Count 247, MPV 10.3, Immature Gran % (Auto) 1.700 H, Neut % (Auto) 84.2 H, Lymph % (Auto) 6.0 L , [place] % (Auto) 7.6, Eos % (Auto) 0.2, Baso % (Auto) 0.3, Absolute Neuts (auto) 18.7 H, Absolute Lymphs (auto) 1.32, Nucleated RBC % 0, Differential Comment SCANNED, Diff Path Review September foll 06/15/19 16:15: Sodium 126 L, Potassium 5.6 H, Chloride 94 L, Carbon Dioxide 20.0 L, Anion Gap 12, BUN 59 H, Creatinine 4.42 H, Estim Creat Clear Calc 9.96, Est GFR (MDRD) Af Amer 13 L, Est GFR (MDRD) Non-Af 11 L, BUN/Creatinine Ratio 13.3, Glucose 227 H, Calcium 9.3 06/15/19 16:15: Total Creatine Kinase Pending Current Medications Sodium Chloride () 1,000 mls @ 150 mls/hr IV .[id number] MACKENZIE Last Admin: 06/15/19 17:15 Dose: 150 mls/hr Documented by: Assessment/Plan All Active Problems (Last Reviewed 04/08/19 @ 08:50 by Emi Keene) Skin necrosis (Acute) Pressure injury of right perineal ischial region, unstageable (Acute) Pressure injury of left perineal ischial region, unstageable (Acute) Septic shock (Acute) Acute renal failure (Acute) Hyperkalemia (Acute) Sepsis (Acute) Panniculitis (Acute) JH (acute kidney injury) (Acute) Hyperkalemia (Acute) Hyponatremia (Acute) ARF (acute renal failure) (Resolved) Acute cystitis (Resolved) Decubitus ulcer of left ischium, stage 4 (Resolved) Hyperkalemia (Resolved) Hypoglycemia associated with type 2 diabetes mellitus (Resolved) Open wound of umbilical region (Resolved) Pressure sore of left ischium, unstageable (Resolved) Rhabdomyolysis (Resolved) Right ischial pressure sore, stage 2 (Resolved) Right ischial pressure sore, stage 3 (Resolved) Skin necrosis (Resolved) 64 y/o admitted with a complaint of weakness, after being unable to get off her toilet for >13 hours prior to admission/ 1. Debility due to rhabdomyolysis * admit to PCu with telemetry o/a of hyperkalemia * PT/OT consult * fall precautions 2. JH due to rhabdomyolysis * Cr on admission is 4.42. with baseline of ~ 1.62. She was admitted in May 06 and also found to be in JH with creatinine peaking at 5.21 and trending down to 1.62 at time of discharge. From 2018 her baseline creatinine has been around 0.7. * Renal ultrasound done May 08, 2017 showed normal ultrasound of the kidneys with no hydronephrosis. * Will check eina. Hydrate with IV fluid normal saline. CPK is pending. 3. Hyperkalemia: Calcium is 5.6. Will give sodium Kayexalate. This likely due to JH. Will monitor. 4. Rhabdomyolysis: CPK is over 18,000. Will hydrate aggressively with IV fluids and monitor. Trend CPK level. 5. Hyponatremia: * Sodium is 126. * This is likely due to dehydration as she was sitting on the toilet for 13 hours with nothing to eat or drink. * Will hydrate with IV fluid normal saline and trend sodium. 6. SIRS criteria: * SIRS criteria of 2 out of 4 with tachycardia and elevated white cell count. * There is no evidence of infection though she states she has been on antibiotics in the long-term on account of the infected pannus. * Will start on IV vancomycin and await blood cultures. * UA showed elevated WBC but epithelial cells was elevated and there were no bacteria. * 7. Abdominal panniculus: * Was transferred to [facility] when she was last admitted for panniculitis. * She has been following up at wound care. * Will consult wound care nurse. Continue IV antibiotics. 8. Paroxysmal A. fib: Currently tachycardic. This likely due to dehydration. Will hydrate with IV fluids and monitor. on eliquis and moetoprolol 9. Hypertension: controlled. ON metoprolol. DVT prophylaxis: Lovenox Super morbid obesity: BMI is>50. Complicates acute care, expected recovery as well as prognosis. CODE STATUS: Full code * Patient and her sister counseled extensively about different types of CODE STATUS including full code, DNR CCA and DNR CCA. Patient elects to be full code. * Total [id number] time 17 minutes. Code Visit Inpatient E&M: 13130 Init Hosp L3 Procedures: 77416 Advncd Care Plan 30 Min
[2019-06-15 18:40] LABS: CPK Total, Creatine Kinase 18897 U/L (26-192)
--- NOTE | 2019-06-15 19:15 | PCM.RX.CS ---
Consult Pharmacy has been consulted to manage selected antiobiotic: Vancomycin Type of Consult: New start Labs: Sodium 126 mmol/L (136-145) L 06/15/19 16:15 Potassium 5.6 mmol/L (3.5-5.1) H 06/15/19 16:15 Chloride 94 mmol/L (98-107) L 06/15/19 16:15 Carbon Dioxide 20.0 mmol/L (21.0-32.0) L 06/15/19 16:15 Anion Gap 12 (5-15) 06/15/19 16:15 BUN 59 mg/dL (7-18) H 06/15/19 16:15 Creatinine 4.42 mg/dL (0.55-1.02) H 06/15/19 16:15 Est GFR (MDRD) Af Amer 13 mL/min (>60) L 06/15/19 16:15 Est GFR (MDRD) Non-Af 11 mL/min (>60) L 06/15/19 16:15 BUN/Creatinine Ratio 13.3 RATIO (-) 06/15/19 16:15 Glucose 227 mg/dL (74-106) H 06/15/19 16:15 Weight used for dosin kg Estimated Creatinine Clearance: 10 mL/min Goal Trough: 15-20 mcg/mL Pharmacy Plan for Drug Dosing: CrCl < 20 mL/min and patient not on dialysis. 2000mg IV x1, random level 06/17 per policy. Pharmacy Service will continue to monitor and adjust dosing as required.
[2019-06-15 20:14] LABS: Urine Sodium 18 mmol/L (Not Establ.)
[2019-06-15] MEDS: APIXABAN 5 MG TABLET PO (20:26)
[2019-06-15] MEDS: tiZANidine HCl 2 MG Tablet PO (20:27)
[2019-06-15] MEDS: Gabapentin 300 MG Capsule PO (20:27)
[2019-06-15] MEDS: Metoprolol Tartrate 100 MG Tablet PO (20:28)
[2019-06-15] MEDS: Sodium Polystyrene Sulfonate 15 GM/60 ML UDC 30 GM PO (20:35)
[2019-06-15 21:45] LABS: Lactic Acid 2.8 mmol/L (0.4-1.9)
[2019-06-16] VITALS (24 sets, daily range): BP systolic 70–122; BP diastolic 40–72; PULSE 75–108; RESP 15–20; TEMP 36.7–37.2; O2SAT 92–100
[2019-06-16 01:10] LABS: Reflex Lactate? Y
[2019-06-16] MEDS: 0.9% Normal Saline 1,000 ML 100 ML IV (05:31)
[2019-06-16 07:10] LABS: Absolute Lymphocyte Count 0.82 X10^3/uL (0.83-4.51); Absolute Neutrophil Count 11.1 X10^3/uL (2.0-7.7); Basophil# 0.02 X10^3/uL; Basophil% 0.2 % (0-1); Eosinophil# 0.09 X10^3/uL; Eosinophils% 0.7 % (0-5); Hemoglobin 9.4 g/dL (12.0-15.0); Lymphocyte # 0.82 X10^3/ul (4.0); Lymphocyte % 6.2 % (19-41); Mean Corp Hgb Conc 32.4 g/dL (32-36); Mean Corpuscular Hgb 28.3 pg (27.0-32.0); Mean Corpuscular Volume 87.3 fL (81-99); Mean Platelet Vol. 10.2 fl (6.2-12.0); Monocyte# 1.12 X10^3/uL; Monocyte% 8.4 % (0-10); NRBC Flagged by Analyzer 0 % (0-5); Neutrophil # 11.13 X10^3/uL (2.7-7.7); Neutrophil % 83.7 % (47-70); POSITIVE MORPHOLOGY YES; Platelet Count 113 K/mm3 (150-450); RBC Distribution Width CV 15.4 % (11.6-14.6); RBC Distribution Width SD 48.4 fl (35.1-43.9); Red Blood Count 3.32 M/mm3 (4.2-5.4); White Blood Count 13.3 K/mm3 (4.4-11.0)
[2019-06-16 07:56] LABS: Differential Indicated SCAN CRITERIA MET
[2019-06-16 08:03] LABS: Anion Gap 10 (5-15); BUN 65 mg/dL (7-18); BUN/Creat Ratio 16.3 RATIO (10-20); Calcium,Total 7.9 mg/dL (8.5-10.1); Chloride 101 mmol/L (98-107); Creatinine, Serum 3.98 mg/dL (0.55-1.02); EST Glomerular Filtration Rate 12 mL/min (>60); Est Glom Filt Rate - Afr Amer 15 mL/min (>60); Estimated Creatinine Clearance 11.06 ml/min; Glucose 236 mg/dL (74-106); Potassium 5.3 mmol/L (3.5-5.1); Sodium Level 129 mmol/L (136-145)
--- NOTE | 2019-06-16 09:40 | PCM.HP.ID ---
Problem List (1) Panniculitis Status: Chronic Reason for Consult: sepsis Consulted by: Dr. King History of Present Illness: The patient is a 64 year old F with DM, recent admit last month for panniculitis. Has been following with Dr. Valle for possible panniculectomy. Admitted here in May, wound cx with serratia, enterococcus, aerococcus, and MS-CoNS. Given vanc/zosyn, transferred to [facility] for surgical eval. No surgery done, discharged on iv abx q8h to ECF. Left her ECF on 06/12, sent home off of abx. Has been feeling well, no fever, no issues with her remaining wound, no abd pain, no n/v/d, no fever, no cough/SOB. Was going to the bathroom at 2am on the , had a back spasm while trying to pick something up off the floor. She could not get up. Was on the toilet for about 13 hours, did not answer phone when her sister called. Found by EMS, taken to ED, had JH, leukocytosis. Started on vanc/zosyn. Feeling fine this AM. Full ROS performed and neg except as noted above. - Medical History Past Medical History (Chronic Problems): Chronic Problems (Last Reviewed 04/08/19 @ 08:50 by Emi Keene) GERD (gastroesophageal reflux disease) (Chronic) Anxiety and depression (Chronic) Chronic pain syndrome (Chronic) Morbid obesity (Chronic) Paroxysmal atrial fibrillation (Chronic) Essential (primary) hypertension (Chronic) Hyperlipidemia (Chronic) intermediate (current) use of anticoagulants (Chronic) Eliquis for atrial fibrillation Abdominal panniculus (Chronic) Edema of abdominal wall (Chronic) Intertrigo (Chronic) abdominal wall skin crease intertrigo Panniculitis (Chronic) Allergies/Adverse Reactions: Allergies amoxicillin Adverse Reaction (Verified 06/15/19 15:33) Other latex Adverse Reaction (Verified 06/15/19 15:33) Other Home Medications: Ambulatory Orders Medication Instructions Recorded Citalopram [Celexa] 20 mg PO DAILY 07/10/16 Gabapentin [Neurontin] 300 mg PO BID 07/22/17 Apixaban [Eliquis] 5 mg PO BID tab 12/24/17 Morphine Sulfate [Ms Contin] 60 mg PO BID 2 Days #4 tablet.er 12/24/17 Menthol/Lanolin/Calamine/Znox 1 applic TOPICAL BID 05/08/19 [Calmoseptine Ointment] Metoprolol Tartrate 100 mg PO DINNER 05/08/19 Metoprolol Tartrate [Lopressor 50 mg PO BREAKFAST 05/08/19 (beta tristen)] Tizanidine HCl 2 - 4 mg PO BID 05/08/19 - Social History SMOKING STATUS:: Never smoker Vital Signs Temp Pulse Resp BP Pulse Ox 98.1 F 108 H 19 H 121/70 H 95 06/16/19 03:33 06/16/19 06:50 06/16/19 03:33 06/16/19 03:33 06/16/19 07:37 Oxygen Delivery Method Room Air Weight: 122.4 kg Body Mass Index (BMI) 51.0 Finger Stick Blood Glucose 236 Laboratory Tests Past 24 Hrs 06/15/19 06/15/19 06/15/19 15:50 15:50 15:50 WBC RBC Hgb Hct MCV MCH MCHC RDW Std Deviation RDW Coeff of Radha Plt Count MPV Immature Gran % (Auto) Neut % (Auto) Lymph % (Auto) Buchanan % (Auto) Eos % (Auto) Baso % (Auto) Absolute Neuts (auto) Absolute Lymphs (auto) Nucleated RBC % Differential Comment Diff Path Review Sodium Potassium Chloride Carbon Dioxide Anion Gap BUN Creatinine Estim Creat Clear Calc Est GFR (MDRD) Af Amer Est GFR (MDRD) Non-Af BUN/Creatinine Ratio Glucose Lactic Acid Calcium Total Creatine Kinase Urine Color Yellow Urine Clarity Cloudy Urine pH 5.0 Ur Specific [place] 1.025 Urine Protein 15 H Urine Glucose (UA) Normal Urine Ketones 5 H Urine Occult Blood 150 H Urine Nitrite Negative Urine Bilirubin 1 H Urine Urobilinogen 1 H Ur Leukocyte Esterase 500 H Urine RBC 0-5 SEEN Urine WBC 10-25 SEEN Ur Squamous Epith Cells 10-25 SEEN Urine Bacteria 0 SEEN Urine Mucus 0 SEEN Urine Yeast 2+ Ur Random Sodium 18 Urine Creatinine 297.00 06/15/19 06/15/19 06/15/19 16:15 16:15 16:15 WBC 22.2 H RBC 4.18 L Hgb 12.0 Hct 37.1 MCV 88.8 MCH 28.7 MCHC 32.3 RDW Std Deviation 49.7 H RDW Coeff of Radha 15.3 H Plt Count 247 MPV 10.3 Immature Gran % (Auto) 1.700 H Neut % (Auto) 84.2 H Lymph % (Auto) 6.0 L Buchanan % (Auto) 7.6 Eos % (Auto) 0.2 Baso % (Auto) 0.3 Absolute Neuts (auto) 18.7 H Absolute Lymphs (auto) 1.32 Nucleated RBC % 0 Differential Comment SCANNED Diff Path Review May foll Sodium 126 L Potassium 5.6 H Chloride 94 L Carbon Dioxide 20.0 L Anion Gap 12 BUN 59 H Creatinine 4.42 H Estim Creat Clear Calc 9.96 Est GFR (MDRD) Af Amer 13 L Est GFR (MDRD) Non-Af 11 L BUN/Creatinine Ratio 13.3 Glucose 227 H Lactic Acid Calcium 9.3 Total Creatine Kinase 52816 H Urine Color Urine Clarity Urine pH Ur Specific [place] Urine Protein Urine Glucose (UA) Urine Ketones Urine Occult Blood Urine Nitrite Urine Bilirubin Urine Urobilinogen Ur Leukocyte Esterase Urine RBC Urine WBC Ur Squamous Epith Cells Urine Bacteria Urine Mucus Urine Yeast Ur Random Sodium Urine Creatinine 06/15/19 06/16/19 06/16/19 21:00 01:35 06:56 WBC 13.3 H RBC 3.32 L Hgb 9.4 L Hct 29.0 L MCV 87.3 MCH 28.3 MCHC 32.4 RDW Std Deviation 48.4 H RDW Coeff of Radha 15.4 H Plt Count 113 L MPV 10.2 Immature Gran % (Auto) 0.800 Neut % (Auto) 83.7 H Lymph % (Auto) 6.2 L Buchanan % (Auto) 8.4 Eos % (Auto) 0.7 Baso % (Auto) 0.2 Absolute Neuts (auto) 11.1 H Absolute Lymphs (auto) 0.82 L Nucleated RBC % 0 Differential Comment Diff Path Review Sodium Potassium Chloride Carbon Dioxide Anion Gap BUN Creatinine Estim Creat Clear Calc Est GFR (MDRD) Af Amer Est GFR (MDRD) Non-Af BUN/Creatinine Ratio Glucose Lactic Acid 2.8 H* 2.0 Calcium Total Creatine Kinase Urine Color Urine Clarity Urine pH Ur Specific [place] Urine Protein Urine Glucose (UA) Urine Ketones Urine Occult Blood Urine Nitrite Urine Bilirubin Urine Urobilinogen Ur Leukocyte Esterase Urine RBC Urine WBC Ur Squamous Epith Cells Urine Bacteria Urine Mucus Urine Yeast Ur Random Sodium Urine Creatinine 06/16/19 06:56 WBC RBC Hgb Hct MCV MCH MCHC RDW Std Deviation RDW Coeff of Radha Plt Count MPV Immature Gran % (Auto) Neut % (Auto) Lymph % (Auto) Buchanan % (Auto) Eos % (Auto) Baso % (Auto) Absolute Neuts (auto) Absolute Lymphs (auto) Nucleated RBC % Differential Comment Diff Path Review Sodium 129 L Potassium 5.3 H Chloride 101 Carbon Dioxide 18.0 L Anion Gap 10 BUN 65 H Creatinine 3.98 H Estim Creat Clear Calc 11.06 Est GFR (MDRD) Af Amer 15 L Est GFR (MDRD) Non-Af 12 L BUN/Creatinine Ratio 16.3 Glucose 236 H Lactic Acid Calcium 7.9 L Total Creatine Kinase Urine Color Urine Clarity Urine pH Ur Specific [place] Urine Protein Urine Glucose (UA) Urine Ketones Urine Occult Blood Urine Nitrite Urine Bilirubin Urine Urobilinogen Ur Leukocyte Esterase Urine RBC Urine WBC Ur Squamous Epith Cells Urine Bacteria Urine Mucus Urine Yeast Ur Random Sodium Urine Creatinine - Other Studies Radiology: [] reviewed Other Studies: [] Route of nutrition/ use of supplements: [] Nutritional Intake: [] IV Site: [] South Catheter: [] - Physical Exam General: Alert, Oriented x3, Cooperative, No apparent distress HEENT: Atraumatic, PERRLA, EOMI Neck: Supple, No Nodes Lungs: Clear to auscultation, Normal air movement Cardiovascular: Regular Rhythm, Tachycardic Abdomen: Soft, Non Tender, Non-Distended, Obese Extremities: Edema Skin: - - large mons pubis pannus, mild induration, shallow wound present, non tender IV Site: Peripheral, without redness Musculoskeletal: No Tenderness to Palpation of Joints or Extremities Neurological: Cranial nerves II-XII grossly intact - Assessment/Plan Antibiotics: [] Assessment/Plan: [] Active and Suspected Problems (Last Reviewed 04/08/19 @ 08:50 by Emi Keene) Acute renal failure (Acute) Hyponatremia (Acute) Wbc improved. Presented with JH, lactic acidosis. Recent admit for panniculitis requiring discharge to [facility] on iv abx. Pannus appears to be doing relatively well. Recommend wound care eval. Will stop vanc/zosyn and monitor off of abx. Low suspicion for new bacterial infection at this time given her history and exam. Will follow, thank you, d/w Dr. King.
[2019-06-16] MEDS: APIXABAN 5 MG TABLET PO ×2 (10:59→21:19)
[2019-06-16] MEDS: tiZANidine HCl 2 MG Tablet PO (11:00)
[2019-06-16] MEDS: Gabapentin 300 MG Capsule PO (11:00)
[2019-06-16] MEDS: Citalopram 20 MG Tablet PO (11:00)
--- NOTE | 2019-06-16 11:10 | CASEMGMT ---
KINJAL spoke with patient as there was mention she wanted to return to [facility]. She said she thinks she wants to go back there, but she does is not completely sure. She did not get along with the therapists at [facility]. KINJAL asked if she would want to go somewhere else. She said she will have to think about it. KINJAL told her SW will check back with her a little later. Kassy ZAMORANO MSW
[2019-06-16] MEDS: Menthol/Lanolin/Calamine/Znox 113 GM Tube 1 APPLIC TOPICAL ×2 (11:21→21:18)
[2019-06-16] MEDS: Nystatin Powder 15gm Bottle 1 APPLIC TOPICAL ×2 (11:22→21:18)
--- NOTE | 2019-06-16 11:40 | PCM.PN.HOSP ---
Patient Problems: Active and Suspected Problems (Last Reviewed 04/08/19 @ 08:50 by Emi Keene) Acute renal failure (Acute) Hyponatremia (Acute) Reason for Visit: rhabdo Subjective: Pt resting comfortably in bed NAD. Pt felt severe back pain while on the toilet, could not get up. She sat there for about 12 hours. She denies fevers/chills. She denies new pain, warmth, or discharge from the pannus. She is making little urine today. She has no CP, muscle spasms, confusion. No LH/dizziness. Vitals/I&O's: Vital Signs Temp Pulse Resp BP Pulse Ox 98.9 F 90 20 H 70/40 L 95 06/16/19 11:00 06/16/19 11:00 06/16/19 11:00 06/16/19 11:00 06/16/19 11:00 Oxygen Delivery Method Room Air Weight: 269 lb 13.533 oz Body Mass Index (BMI) 51.0 Finger Stick Blood Glucose 236 Intake and Output for Last 24 Hours 06/14/19 06/15/19 06/16/19 23:59 23:59 23:59 Intake Total 1090 / 1090 1592.5 / 1592.5 Balance 1090 / 1090 1592.5 / 1592.5 General: Alert, Oriented x3, Cooperative HEENT: Atraumatic, PERRLA, EOMI, Normocephalic Neck: Supple, No JVD, Negative Carotid Bruits Lungs: Clear to auscultation, Normal air movement Cardiovascular: Regular rate, No murmurs Abdomen: Bowel Sounds Present, Soft, Non Tender, Obese, - - large pendulous pannus, erythematous, increased warmth. Extremities: No edema, Capillary Refill Less than 3 Seconds Skin: No rashes, No breakdown Musculoskeletal: No Tenderness to Palpation of Joints or Extremities Neurological: Cranial nerves II-XII grossly intact Psych/Mental Status: Normal Affect, Appropriate, Alert and oriented to time, place, person, mood and affect Laboratory Results 06/15/19 15:50: Urine Color Yellow, Urine Clarity Cloudy, Urine pH 5.0, Ur Specific [place] 1.025, Urine Protein 15 H, Urine Glucose (UA) Normal, Urine Ketones 5 H, Urine Occult Blood 150 H, Urine Nitrite Negative, Urine Bilirubin 1 H, Urine Urobilinogen 1 H, Ur Leukocyte Esterase 500 H, Urine RBC 0-5 SEEN, Urine WBC 10-25 SEEN, Ur Squamous Epith Cells 10-25 SEEN, Urine Bacteria 0 SEEN, Urine Mucus 0 SEEN, Urine Yeast 2+ 06/15/19 15:50: Urine Creatinine 297.00 06/15/19 15:50: Ur Random Sodium 18 06/15/19 16:15: WBC 22.2 H, RBC 4.18 L, Hgb 12.0, Hct 37.1, MCV 88.8, MCH 28.7, MCHC 32.3, RDW Std Deviation 49.7 H, RDW Coeff of Radha 15.3 H, Plt Count 247, MPV 10.3, Immature Gran % (Auto) 1.700 H, Neut % (Auto) 84.2 H, Lymph % (Auto) 6.0 L, Murray % (Auto) 7.6, Eos % (Auto) 0.2, Baso % (Auto) 0.3, Absolute Neuts (auto) 18.7 H, Absolute Lymphs (auto) 1.32, Nucleated RBC % 0, Differential Comment SCANNED, Diff Path Review September06/15/19 16:15: Sodium 126 L, Potassium 5.6 H, Chloride 94 L, Carbon Dioxide 20.0 L, Anion Gap 12, BUN 59 H, Creatinine 4.42 H, Estim Creat Clear Calc 9.96, Est GFR (MDRD) Af Amer 13 L, Est GFR (MDRD) Non-Af 11 L, BUN/Creatinine Ratio 13.3, Glucose 227 H, Calcium 9.3 06/15/19 16:15: Total Creatine Kinase 09299 H 06/15/19 21:00: Lactic Acid 2.8 H* 06/16/19 01:35: Lactic Acid 2.0 06/16/19 06:56: WBC 13.3 H, RBC 3.32 L, Hgb 9.4 L, Hct 29.0 L, MCV 87.3, MCH 28.3, MCHC 32.4, RDW Std Deviation 48.4 H, RDW Coeff of Radha 15.4 H, Plt Count 113 L, MPV 10.2, Immature Gran % (Auto) 0.800, Neut % (Auto) 83.7 H, Lymph % (Auto) 6.2 L, Murray % (Auto) 8.4, Eos % (Auto) 0.7, Baso % (Auto) 0.2, Absolute Neuts (auto) 11.1 H, Absolute Lymphs (auto) 0.82 L, Nucleated RBC % 0 06/16/19 06:56: Sodium 129 L, Potassium 5.3 H, Chloride 101, Carbon Dioxide 18.0 L, Anion Gap 10, BUN 65 H, Creatinine 3.98 H, Estim Creat Clear Calc 11.06, Est GFR (MDRD) Af Amer 15 L, Est GFR (MDRD) Non-Af 12 L, BUN/Creatinine Ratio 16.3, Glucose 236 H, Calcium 7.9 L Current Medications Apixaban (Eliquis) 5 mg PO BID [facility] Last Admin: 06/16/19 10:59 Dose: 5 mg Documented by: Calamine/Phenol (Calmoseptine Ointment) 1 applic TOPICAL BID [facility]; Protocol Last Admin: 06/16/19 11:21 Dose: 1 applicatio Documented by: Citalopram Hydrobromide (Celexa) 20 mg PO DAILY [facility] [place] Last Admin: 06/16/19 11:00 Dose: 20 mg Documented by: Dextrose (D50w Syringe) 0 gm IV X1 PRN; Protocol PRN Reason: Hypoglycemia Glucagon () 1 mg IM .X1 PRN PRN Reason: Hypoglycemia Sodium Chloride () 250 mls @ 15 mls/hr IV .[id number] PRN PRN Reason: Saline Flush Last Infusion: 06/16/19 05:30 Dose: 0 mls/hr Documented by: Sodium Chloride () 250 mls @ 15 mls/hr IV .[id number] PRN PRN Reason: Additional IVPB Infusion Sodium Chloride () 1,000 mls @ 100 mls/hr IV .Q10H [facility] Last Admin: 06/16/19 05:31 Dose: 100 mls/hr Documented by: Sodium Chloride () 500 mls @ 999 mls/hr IV .Q31M ONE Stop: 06/16/19 11:44 Last Admin: 06/16/19 11:22 Dose: 999 mls/hr Documented by: Nutritional Formula (Lactose Free) (Ensure Enlive) 120 ml PO 4X/DAY [facility] Last Admin: 06/16/19 10:59 Dose: 120 ml Documented by: Nystatin (Mycostatin Powder) 1 applic TOPICAL BID [facility]; Protocol Last Admin: 06/16/19 11:22 Dose: 1 applicatio Documented by: Ondansetron HCl (Zofran) 4 mg IV Q8H PRN PRN PRN Reason: NAUSEA/VOMITING Sodium Chloride () 10 - 40 ml IV UD PRN PRN Reason: SALINE FLUSH STROKE Vital Signs/Narrative: Vital Signs Temp Pulse Resp BP Pulse Ox 06/16/19 11:00 98.9 F 90 20 H 70/40 L 95 Medical Necessity - Tobacco Use Smoking Status: Never smoker Tobacco Use: Non-smoker Assessment/Plan All Active Problems (Last Reviewed 04/08/19 @ 08:50 by Emi Keene) Skin necrosis (Acute) Pressure injury of right perineal ischial region, unstageable (Acute) Pressure injury of left perineal ischial region, unstageable (Acute) Septic shock (Acute) Acute renal failure (Acute) Hyperkalemia (Acute) Sepsis (Acute) Panniculitis (Acute) JH (acute kidney injury) (Acute) Hyperkalemia (Acute) Hyponatremia (Acute) ARF (acute renal failure) (Resolved) Acute cystitis (Resolved) Decubitus ulcer of left ischium, stage 4 (Resolved) Hyperkalemia (Resolved) Hypoglycemia associated with type 2 diabetes mellitus (Resolved) Open wound of umbilical region (Resolved) Pressure sore of left ischium, unstageable (Resolved) Rhabdomyolysis (Resolved) Right ischial pressure sore, stage 2 (Resolved) Right ischial pressure sore, stage 3 (Resolved) Skin necrosis (Resolved) 1. JH 2/2 acute rhabdomyolysis 2/2 sitting on toilet x 12 hours - continue aggressive fluids. consult nephrology. Improved Na+, K+, CL-, Cr. CO2 decreased, BUN increased. Gap 10. CK on admission [id number]. South placed. Strict I/O. WBC's 22-->13. No fever. LA 2.8 -->2.0. UA abnormal but no bacteria. 2. Thrombocytopenia - platelets declined 247-->113. On eliquis, no asa/lovenox/heparin. Hgb declined from 12 to 9.4. Check LFTs 3. Large abdominal pannus, - ID consulted does not feel abx are warranted at this time. Consult to plastic surgery. She was recently transferred for possible surgery however surgery was deferred and IV abx were given. 4. T2DM with morbid obesity 5. Paroysmal afib - eliquis. metoprolol held for hypotension. 6. HTN - hypotensive this AM with 70 systolic, metoprolol held. 7. Anxiety/Depression - celexa 8. Chronic pain - held oxycontin, gabapentin, zanaflex for hypotension DVT ppx: eliquis DC planning: PTOT, recently DCd from SNF, likely needs to go back. This patient was seen by Elias Nascimento PA-C under the supervision of Dr. King.
[2019-06-16 12:21] LABS: AST(SGOT) 397 U/L (15-37); Alanine Aminotransfer ALT/SGPT 74 U/L (13-56); Albumin, Serum 1.8 g/dL (3.2-5.0); Alkaline Phosphatase 135 U/L (45-117); Bilirubin, Direct 0.14 mg/dL (0.00-0.30); Globulin 4.4 g/dL (2.2-4.2); Protein, Total 6.2 g/dL (6.4-8.2)
--- NOTE | 2019-06-16 12:32 | PCM.CONS.R ---
Consultation - Renal 06/16/19 PCP/ Referring MD: Requesting physician: [] Primary care physician: Brittany Sorenson MD Reason for Consultation:: JH, hyperkalemia - History of Present Illness History of Present Illness: The patient is a 64 year old morbidly obese F admitted for JH, hyperkalemia, rhabdo. Seen on consult in May 08, 2019 for same. She denied NSAID use, diuretics. Denied nausea, vomiting, diarrhea. Denies fever, chills. She was profoundly hypotensive but responded to fluids last admission and renal function improved to creatinine of 1.62 on 05/11/19 prior to transfer to [facility]. Creatinine improved to 0.95 on 05/15/19. Blood cx negative last hospitalization. She was discharged to [facility] from [facility]. Received iv antibx via PICC line at [facility] since last Saturday. PICC line removed last week. She went back home and could not get out of bathroom due to leg weakness. Potassium was elevated at 5.6 with creatinine 4.4 to 3.9 today after iv hydration. Blood cx sent. BP low at 70 systolic. Denies CP, palpitations. Thinks she may have passed out but thought she fell asleep. She is an unreliable, vague historian. She complains of thirst.She denies shortness of breath. Urine output poor. - Allergies Allergies: Allergies amoxicillin Adverse Reaction (Verified 06/15/19 15:33) Other latex Adverse Reaction (Verified 06/15/19 15:33) Other - Current Medications Current Medications: Current Medications Apixaban (Eliquis) 5 mg PO BID [facility] Last Admin: 06/16/19 10:59 Dose: 5 mg Documented by: Calamine/Phenol (Calmoseptine Ointment) 1 applic TOPICAL BID [facility]; Protocol Last Admin: 06/16/19 11:21 Dose: 1 applicatio Documented by: Citalopram Hydrobromide (Celexa) 20 mg PO DAILY [facility] Last Admin: 06/16/19 11:00 Dose: 20 mg Documented by: Dextrose (D50w Syringe) 0 gm IV X1 PRN; Protocol PRN Reason: Hypoglycemia Glucagon () 1 mg IM .X1 PRN PRN Reason: Hypoglycemia Sodium Chloride () 250 mls @ 15 mls/hr IV .[id number] PRN PRN Reason: Saline Flush Last Infusion: 06/16/19 05:30 Dose: 0 mls/hr Documented by: Sodium Chloride () 250 mls @ 15 mls/hr IV .[id number] PRN PRN Reason: Additional IVPB Infusion Sodium Chloride () 1,000 mls @ 150 mls/hr IV .[id number] [facility] Last Infusion: 06/16/19 12:11 Dose: 150 mls/hr Documented by: Nutritional Formula (Bernard - [place] Flavor) 1 packet PO BIDCM [facility] Nystatin (Mycostatin Powder) 1 applic TOPICAL BID [facility]; Protocol Last Admin: 06/16/19 11:22 Dose: 1 applicatio Documented by: Ondansetron HCl (Zofran) 4 mg IV Q8H PRN PRN PRN Reason: NAUSEA/VOMITING Sodium Chloride () 10 - 40 ml IV UD PRN PRN Reason: SALINE FLUSH - Past Medical History Past Medical History (Chronic Problems): Chronic Problems (Last Reviewed 04/08/19 @ 08:50 by Emi Keene) GERD (gastroesophageal reflux disease) (Chronic) Anxiety and depression (Chronic) Chronic pain syndrome (Chronic) Morbid obesity (Chronic) Paroxysmal atrial fibrillation (Chronic) Essential (primary) hypertension (Chronic) Hyperlipidemia (Chronic) [facility] (current) use of anticoagulants (Chronic) Eliquis for atrial fibrillation Abdominal panniculus (Chronic) Edema of abdominal wall (Chronic) Intertrigo (Chronic) abdominal wall skin crease intertrigo Panniculitis (Chronic) - Past Surgical History Surgical History: cholecystectomy, herniorrhaphy, - - Excision left ischial pressure sore into the muscle, Stage IV, and excision right ischial pressure sore into the subcutaneous tissue, Stage III, with 6 cm layered closure - 07/25/17 - Social History Smoking Status: Never smoker - Family History Paternal Family History: Family History (Last Reviewed 04/08/19 @ 08:50 by Emi Keene) Father Diabetes Mother Arthritis Hypertension Heart disease Sister Arthritis Diabetes Heart disease Hypertension High cholesterol History Items: Diabetes Maternal Family History: Family History (Last Reviewed 04/08/19 @ 08:50 by Emi Keene) Father Diabetes Mother Arthritis Hypertension Heart disease Sister Arthritis Diabetes Heart disease Hypertension High cholesterol History Items: High Cholesterol, Heart Disease, Hypertension Review of Systems Constitutional: Reports: Weakness. Denies: Anorexia, Chills, Fever Eyes: Denies: Vision Change Cardiovascular: Denies: Chest Pain Respiratory: Denies: Cough Gastrointestinal: Denies: Abdominal Pain, Constipation, Diarrhea, Nausea, Vomiting Skin: Reports: - - infection on abdomen for weeks on iv antibx, last dose Saturday Neurological: Reports: Balance problems, - - debilitated, weakness. Denies: Tremor, Seizures Psychiatric: Denies: Anxiety, Depression Patient Problems: Active and Suspected Problems (Last Reviewed 04/08/19 @ 08:50 by Emi Keene) Acute renal failure (Acute) Hyponatremia (Acute) - Physical Exam Vitals/I&O's: Vital Signs Temp Pulse Resp BP Pulse Ox 98.9 F 90 20 H 80/40 L 95 06/16/19 11:00 06/16/19 11:00 06/16/19 11:00 06/16/19 12:15 06/16/19 11:00 Oxygen Delivery Method Room Air Weight: 122.4 kg Body Mass Index (BMI) 51.0 Finger Stick Blood Glucose 236 Intake and Output for Last 24 Hours 06/14/19 06/15/19 06/16/19 23:59 23:59 23:59 Intake Total 1090 / 1090 2999.17 / 2999.17 Output Total Balance 1090 / 1090 2979.17 / 2979.17 General: Alert, Oriented x3, Cooperative, No apparent distress Oral: Dry Mucosa Lungs: Clear to auscultation Cardiovascular: Regular rate, No rub noted Abdomen: Non Tender, Hyperactive Bowel Sounds, Obese, - - huge pannus Extremities: No edema Skin: - - mild erythema anterior abdomen, pannus Musculoskeletal: - - gen weakness Neurological: - - no tremor Psych/Mental Status: Normal Affect, Appropriate, Alert and oriented to time, place, person, mood and affect Laboratory Results 06/15/19 15:50: Urine Color Yellow, Urine Clarity Cloudy, Urine pH 5.0, Ur Specific [place] 1.025, Urine Protein 15 H, Urine Glucose (UA) Normal, Urine Ketones 5 H, Urine Occult Blood 150 H, Urine Nitrite Negative, Urine Bilirubin 1 H, Urine Urobilinogen 1 H, Ur Leukocyte Esterase 500 H, Urine RBC 0-5 SEEN, Urine WBC 10-25 SEEN, Ur Squamous Epith Cells 10-25 SEEN, Urine Bacteria 0 SEEN, Urine Mucus 0 SEEN, Urine Yeast 2+ 06/15/19 15:50: Urine Creatinine 297.00 06/15/19 15:50: Ur Random Sodium 18 06/15/19 16:15: WBC 22.2 H, RBC 4.18 L, Hgb 12.0, Hct 37.1, MCV 88.8, MCH 28.7, MCHC 32.3, RDW Std Deviation 49.7 H, RDW Coeff of Radha 15.3 H, Plt Count 247, MPV 10.3, Immature Gran % (Auto) 1.700 H, Neut % (Auto) 84.2 H, Lymph % (Auto) 6.0 L, Esmeralda % (Auto) 7.6, Eos % (Auto) 0.2, Baso % (Auto) 0.3, Absolute Neuts (auto) 18.7 H, Absolute Lymphs (auto) 1.32, Nucleated RBC % 0, Differential Comment SCANNED, Diff Path Review September06/15/19 16:15: Sodium 126 L, Potassium 5.6 H, Chloride 94 L, Carbon Dioxide 20.0 L, Anion Gap 12, BUN 59 H, Creatinine 4.42 H, Estim Creat Clear Calc 9.96, Est GFR (MDRD) Af Amer 13 L, Est GFR (MDRD) Non-Af 11 L, BUN/Creatinine Ratio 13.3, Glucose 227 H, Calcium 9.3 06/15/19 16:15: Total Creatine Kinase 77654 H 06/15/19 21:00: Lactic Acid 2.8 H* 06/16/19 01:35: Lactic Acid 2.0 06/16/19 06:56: WBC 13.3 H, RBC 3.32 L, Hgb 9.4 L, Hct 29.0 L, MCV 87.3, MCH 28.3, MCHC 32.4, RDW Std Deviation 48.4 H, RDW Coeff of Radha 15.4 H, Plt Count 113 L, MPV 10.2, Immature Gran % (Auto) 0.800, Neut % (Auto) 83.7 H, Lymph % (Auto) 6.2 L, Esmeralda % (Auto) 8.4, Eos % (Auto) 0.7, Baso % (Auto) 0.2, Absolute Neuts (auto) 11.1 H, Absolute Lymphs (auto) 0.82 L, Nucleated RBC % 0 06/16/19 06:56: Sodium 129 L, Potassium 5.3 H, Chloride 101, Carbon Dioxide 18.0 L, Anion Gap 10, BUN 65 H, Creatinine 3.98 H, Estim Creat Clear Calc 11.06, Est GFR (MDRD) Af Amer 15 L, Est GFR (MDRD) Non-Af 12 L, BUN/Creatinine Ratio 16.3, Glucose 236 H, Calcium 7.9 L 06/16/19 06:56: Total Bilirubin 0.60, Direct Bilirubin 0.14, AST 397 H, ALT 74 H, Alkaline Phosphatase 135 H, Total Protein 6.2 L, Albumin 1.8 L, Globulin 4.4 H Current Medications Apixaban (Eliquis) 5 mg PO BID [facility] Last Admin: 06/16/19 10:59 Dose: 5 mg Documented by: Calamine/Phenol (Calmoseptine Ointment) 1 applic TOPICAL BID [facility]; Protocol Last Admin: 06/16/19 11:21 Dose: 1 applicatio Documented by: Citalopram Hydrobromide (Celexa) 20 mg PO DAILY [facility] Last Admin: 06/16/19 11:00 Dose: 20 mg Documented by: Dextrose (D50w Syringe) 0 gm IV X1 PRN; Protocol PRN Reason: Hypoglycemia Glucagon () 1 mg IM .X1 PRN PRN Reason: Hypoglycemia Sodium Chloride () 250 mls @ 15 mls/hr IV .[id number] PRN PRN Reason: Saline Flush Last Infusion: 06/16/19 05:30 Dose: 0 mls/hr Documented by: Sodium Chloride () 250 mls @ 15 mls/hr IV .[id number] PRN PRN Reason: Additional IVPB Infusion Sodium Chloride () 1,000 mls @ 150 mls/hr IV .Q6H40M [facility] Last Infusion: 06/16/19 12:11 Dose: 150 mls/hr Documented by: Nutritional Formula (Bernard - [place] Flavor) 1 packet PO BIDCM [facility] Nystatin (Mycostatin Powder) 1 applic TOPICAL BID [facility]; Protocol Last Admin: 06/16/19 11:22 Dose: 1 applicatio Documented by: Ondansetron HCl (Zofran) 4 mg IV Q8H PRN PRN PRN Reason: NAUSEA/VOMITING Sodium Chloride () 10 - 40 ml IV UD PRN PRN Reason: SALINE FLUSH Assessment/Plan All Active Problems (Last Reviewed 04/08/19 @ 08:50 by Emi Keene) Skin necrosis (Acute) Pressure injury of right perineal ischial region, unstageable (Acute) Pressure injury of left perineal ischial region, unstageable (Acute) Septic shock (Acute) Acute renal failure (Acute) Hyperkalemia (Acute) Sepsis (Acute) Panniculitis (Acute) JH (acute kidney injury) (Acute) Hyperkalemia (Acute) Hyponatremia (Acute) ARF (acute renal failure) (Resolved) Acute cystitis (Resolved) Decubitus ulcer of left ischium, stage 4 (Resolved) Hyperkalemia (Resolved) Hypoglycemia associated with type 2 diabetes mellitus (Resolved) Open wound of umbilical region (Resolved) Pressure sore of left ischium, unstageable (Resolved) Rhabdomyolysis (Resolved) Right ischial pressure sore, stage 2 (Resolved) Right ischial pressure sore, stage 3 (Resolved) Skin necrosis (Resolved) 1. JH due to prerenal event, hypotension, dehydration. FeNa <1%. Continue aggressive hydration. 2. Super morbid obesity with panniculitis 3. Hypotension/shock, leukocytosis, afebrile. blood cx sent. 4. Debilitation. 5. Hyperkalemia manage medically 6. Panniculitis on iv antibx
[2019-06-16 13:24] LABS: Pathologist Review Reviewed
[2019-06-16] MEDS: 0.9% Normal Saline 1,000 ML 999 ML IV ×2 (15:35→16:46)
--- NOTE | 2019-06-16 19:40 | RAD_ITS ---
STUDY: X-RAY CHEST REASON FOR EXAM: Female, 64 years old. Hypotension, also please read for PICC line placement TECHNIQUE: AP chest. COMPARISON: 07/12/2016. FINDINGS: Right PICC line terminates in the superior vena cava. The lungs are clear and expanded. There is no demonstrated pleural abnormality. Normal size heart. Normal mediastinum and ian. Normal visualized pulmonary arteries. Normal visualized aortic arch and descending thoracic aorta. Degenerative changes of the shoulders bilaterally. Soft tissues and bony structures are otherwise unremarkable. There is no demonstrated abnormality of the visualized soft tissue structures of the upper abdomen. RAD/Chest 1 View (Portable) IMPRESSION: 1. No acute findings. 2. PICC line terminates in the SVC. Electronically Signed: Yadira Colvin MD at 20:29 EST Tel , Service support ,
[2019-06-16] MEDS: 0.9% Normal Saline 1,000 ML 150 ML IV (19:54)
[2019-06-17] VITALS (23 sets, daily range): BP systolic 101–130; BP diastolic 49–90; PULSE 70–91; RESP 12–25; TEMP 36.2–37.2; O2SAT 94–100
[2019-06-17] MEDS: 0.9% Normal Saline 1,000 ML 150 ML IV (02:24)
[2019-06-17 04:07] LABS: Absolute Neutrophil Count 5.8 X10^3/uL (2.0-7.7); Eosinophil# 0.03 X10^3/uL; Eosinophils% 0.4 % (0-5); Hematocrit 23.6 % (37-47); Hemoglobin 7.6 g/dL (12.0-15.0); Lymphocyte % 12.2 % (19-41); Mean Corp Hgb Conc 32.2 g/dL (32-36); Mean Corpuscular Hgb 28.7 pg (27.0-32.0); Mean Corpuscular Volume 89.1 fL (81-99); Mean Platelet Vol. 9.8 fl (6.2-12.0); Monocyte# 0.62 X10^3/uL; Monocyte% 8.4 % (0-10); NRBC Flagged by Analyzer 0 % (0-5); Neutrophil # 5.75 X10^3/uL (2.7-7.7); Neutrophil % 78.3 % (47-70); POSITIVE COUNT YES; Platelet Count 93 K/mm3 (150-450); RBC Distribution Width CV 15.4 % (11.6-14.6); RBC Distribution Width SD 50.1 fl (35.1-43.9); Red Blood Count 2.65 M/mm3 (4.2-5.4); White Blood Count 7.4 K/mm3 (4.4-11.0)
[2019-06-17 04:10] LABS: Differential Indicated SCAN CRITERIA MET
[2019-06-17 04:21] LABS: Platelet Estimate MOD DEC (ADEQ)
[2019-06-17 04:42] LABS: Anion Gap 8 (5-15); BUN 66 mg/dL (7-18); BUN/Creat Ratio 18.5 RATIO (10-20); CPK Total, Creatine Kinase 6482 U/L (26-192); Calcium,Total 7.4 mg/dL (8.5-10.1); Chloride 105 mmol/L (98-107); Creatinine, Serum 3.56 mg/dL (0.55-1.02); EST Glomerular Filtration Rate 14 mL/min (>60); Est Glom Filt Rate - Afr Amer 17 mL/min (>60); Estimated Creatinine Clearance 12.36 ml/min; Glucose 152 mg/dL (74-106); Potassium 4.5 mmol/L (3.5-5.1); Sodium Level 135 mmol/L (136-145)
--- NOTE | 2019-06-17 06:39 | CON.PCM_ITS ---
Reason for Consult Date of Consultation: 06/17/19 Reason for Consultation: Hypotension History of Present Illness: The patient is a 64-year-old female, with a history as outlined below, who initially presented to the emergency department on June 15 with generalized weakness. The patient was apparently unable to get herself off of the commode and subsequently sat immobile for approximately 12 hours. The patient was recently admitted to the hospital for several days at the beginning of May 2019 with sepsis secondary to panniculitis. She was subsequently transferred to [facility] for plastic surgery evaluation. However, no surgical intervention was performed. The patient was treated conservatively with antibiotics. [facility], where she remained until 3 days prior to her hospitalization here. On presentation to the emergency department, the patient was noted to be afebrile and hemodynamically stable. She was maintaining appropriate oxygen saturations on room air. Initial laboratory evaluation revealed an elevated white blood cell count to 22,000. Chemistry profile was notable for a sodium of 126, potassium of 5.6, chloride of 94, bicarbonate of 20 and creatinine of 4.42. Lactate was elevated to 2.8. CK was increased to 18,897. The patient was subsequently admitted to the progressive care unit for management of her acute kidney injury and electrolyte abnormalities. On the afternoon of June 16, the patient was noted to be hypotensive. There were documented systolic blood pressures in the 70s and 80s. The patient had already been evaluated by infectious diseases, who did not feel that the patient had an active bacterial infection requiring antibiotics. The patient received supplemental IV fluids and was restarted on Zosyn. She was then transferred to the medical intensive care unit. However, on arrival to the ICU, and after repositioning of her blood pressure cuff, the patient was noted to be normotensive. The patient was mentating appropriately. Vasopressors were never required. This morning, the patient feels well, noting only the presence of a mild frontal headache. The patient is currently overall net +7.4 L for the hospital admission. Her CK level has decreased accordingly. 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) Eliquis for atrial fibrillation Abdominal panniculus (Chronic) Edema of abdominal wall (Chronic) Intertrigo (Chronic) abdominal wall skin crease intertrigo Panniculitis (Chronic) Medical History: Medical History (Last Reviewed 04/08/19 @ 08:50 by Emi Keene) Morbid obesity (Chronic) E66.01 Paroxysmal atrial fibrillation (Chronic) I48.0 Essential (primary) hypertension (Chronic) I10 Hyperlipidemia (Chronic) E78.5 Abdominal panniculus (Chronic) E65 Edema of abdominal wall (Chronic) R60.0 Intertrigo (Chronic) L30.4 abdominal wall skin crease intertrigo Panniculitis (Chronic) M79.3 Abdominal wall pain in both lower quadrants R10.31, R10.32 Anemia D64.9 Arthritis M19.90 Atrial fibrillation with rapid ventricular response Onset Date: 12/2017 I48.91 Back problem M53.9 Breast lump in female N63.0 Depression F32.9 Difficulty balancing when standing R26.89 and when ambulating Excessive weight loss R63.4 70 lbs over last year Late effect of medical and surgical care complication T88.9XXS painful insulin nodules abdominal wall Neuropathy G62.9 Normochromic normocytic anemia D64.9 Osteoarthritis M19.90 Panniculitis M79.3 Pressure sore of left ischium, unstageable L89.320 Pressure ulcer L89.90 Right ischial pressure sore, stage 2 L89.312 Thrombocytopenia D69.6 Type 2 diabetes mellitus E11.9 Umbilical hernia K42.9 History of blood transfusion Z92.89 Kidney failure N19 Rupture of hernia K46.[address] OAKLEY UTI (urinary tract infection) N39.0 Allergies amoxicillin Adverse Reaction (Verified 06/15/19 15:33) Other latex Adverse Reaction (Verified 06/15/19 15:33) Other Home Medications: Ambulatory Orders Medication Instructions Recorded Citalopram [Celexa] 20 mg PO DAILY 07/10/16 Gabapentin [Neurontin] 300 mg PO BID 07/22/17 Apixaban [Eliquis] 5 mg PO BID tab 12/24/17 Morphine Sulfate [Ms Contin] 60 mg PO BID 2 Days #4 tablet.er 12/24/17 Menthol/Lanolin/Calamine/Znox 1 applic TOPICAL BID 05/08/19 [Calmoseptine Ointment] Metoprolol Tartrate 100 mg PO DINNER 05/08/19 Metoprolol Tartrate [Lopressor 50 mg PO BREAKFAST 05/08/19 (beta tristen)] Tizanidine HCl 2 - 4 mg PO BID 05/08/19 Surgical History: Surgical History (Last Reviewed 04/08/19 @ 08:50 by Emi Keene) Bilateral ischial wound debridement History of herniorrhaphy Z98.890, Z87.19 Hx of cholecystectomy Z90.49 Surgical History: cholecystectomy, herniorrhaphy, - - Excision left ischial pressure sore into the muscle, Stage IV, and excision right ischial pressure sore into the subcutaneous tissue, Stage III, with 6 cm layered closure - 07/25/17 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, 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 Lives: Alone Smoking Status: Never smoker Tobacco Use: Non-smoker - *Family History Paternal Family History: Family History (Last Reviewed 04/08/19 @ 08:50 by Emi Keene) Father Diabetes Mother Arthritis Hypertension Heart disease Sister Arthritis Diabetes Heart disease Hypertension High cholesterol History Items: Diabetes Maternal Family History: Family History (Last Reviewed 04/08/19 @ 08:50 by Emi Keene) Father Diabetes Mother Arthritis Hypertension Heart disease Sister Arthritis Diabetes Heart disease Hypertension High cholesterol History Items: High Cholesterol, Heart Disease, Hypertension Review of Systems Constitutional: Denies: Chills, Fever Eyes: Denies: Blurred vision, Double vision HEENT: Denies: Head Aches, Sinus Congestion, Sinus Drainage Cardiovascular: Denies: Chest Pain, Palpitations Respiratory: Denies: Cough, Shortness of breath at rest, Sputum production Gastrointestinal: Denies: Abdominal Pain, Nausea, Vomiting Genitourinary: Denies: Dysuria Musculoskeletal: Denies: Joint Pain, Joint Tenderness Skin: Denies: Lesions Neurological: Denies: Numbness, Tingling, Focal weakness Psychiatric: Denies: Anxiety, Depression, Homicidal Ideations, Suicidal Ideations Hematologic/ Lymphatic: Reports: Anemia Patient Problems: Active and Suspected Problems (Last Reviewed 04/08/19 @ 08:50 by Emi Keene) Acute renal failure (Acute) Hyponatremia (Acute) Objective: The patient's most recent lab work, culture data and imaging studies have all been personally reviewed. - Physical Exam Vitals/I&O's: Vital Signs Temp Pulse Resp BP Pulse Ox 98.8 F 88 20 H 121/65 H 99 06/17/19 06:00 06/17/19 06:00 06/17/19 06:00 06/17/19 06:00 06/17/19 06:00 Oxygen Delivery Method Room Air Weight: 288 lb 12.889 oz Body Mass Index (BMI) 51.0 Finger Stick Blood Glucose 236 Intake and Output for Last 24 Hours 06/15/19 06/16/19 06/17/19 23:59 23:59 23:59 Intake Total 1090 / 1090 6362.50 / 6362.50 1092.5 / 1092.5 Output Total 610 / 610 500 / 500 Balance 1090 / 1090 5752.50 / 5752.50 592.5 / 592.5 General: Alert, Cooperative, No apparent distress, - - Morbidly obese HEENT: Atraumatic, Normocephalic Oral: No Gingival or Mucosal Lesions/ Ulcerations Neck: Supple, No Nodes, Trachea Midline, - - Large neck circumference with redundant soft tissue Lungs: No rhonchi, No wheeze, No rales, Diminished Cardiovascular: Regular rate, Regular Rhythm, Normal S1, Normal S2 Abdomen: Bowel Sounds Present, Soft, Obese Extremities: No clubbing, No cyanosis, Edema Skin: - - Large pannus with shallow ulcerations that do not appear to be grossly infected. Musculoskeletal: No Muscle Wasting Lymphatic: No Cervical, Supraclavicular, or Inguinal Adenopathy Neurological: Neuro grossly intact Psych/Mental Status: Normal Affect, Appropriate Labs (Last 48 Hours) 06/15/19 06/15/19 06/15/19 15:50 15:50 15:50 WBC RBC Hgb Hct MCV MCH MCHC RDW Std Deviation RDW Coeff of Radha Plt Count MPV Immature Gran % (Auto) Neut % (Auto) Lymph % (Auto) [place] % (Auto) Eos % (Auto) Baso % (Auto) Absolute Neuts (auto) Absolute Lymphs (auto) Nucleated RBC % Differential Comment Diff Path Review Platelet Estimate Sodium Potassium Chloride Carbon Dioxide Anion Gap BUN Creatinine Estim Creat Clear Calc Est GFR (MDRD) Af Amer Est GFR (MDRD) Non-Af BUN/Creatinine Ratio Glucose Lactic Acid Calcium Total Bilirubin Direct Bilirubin AST ALT Alkaline Phosphatase Total Creatine Kinase Troponin I Total Protein Albumin Globulin Urine Color Yellow Urine Clarity Cloudy Urine pH 5.0 Ur Specific [place] 1.025 Urine Protein 15 H Urine Glucose (UA) Normal Urine Ketones 5 H Urine Occult Blood 150 H Urine Nitrite Negative Urine Bilirubin 1 H Urine Urobilinogen 1 H Ur Leukocyte Esterase 500 H Urine RBC 0-5 SEEN Urine WBC 10-25 SEEN Ur Squamous Epith Cells 10-25 SEEN Urine Bacteria 0 SEEN Urine Mucus 0 SEEN Urine Yeast 2+ Ur Random Sodium 18 Urine Creatinine 297.00 06/15/19 06/15/19 06/15/19 16:15 16:15 16:15 WBC 22.2 H RBC 4.18 L Hgb 12.0 Hct 37.1 MCV 88.8 MCH 28.7 MCHC 32.3 RDW Std Deviation 49.7 H RDW Coeff of Radha 15.3 H Plt Count 247 MPV 10.3 Immature Gran % (Auto) 1.700 H Neut % (Auto) 84.2 H Lymph % (Auto) 6.0 L [place] % (Auto) 7.6 Eos % (Auto) 0.2 Baso % (Auto) 0.3 Absolute Neuts (auto) 18.7 H Absolute Lymphs (auto) 1.32 Nucleated RBC % 0 Differential Comment SCANNED Diff Path Review Reviewed Platelet Estimate Sodium 126 L Potassium 5.6 H Chloride 94 L Carbon Dioxide 20.0 L Anion Gap 12 BUN 59 H Creatinine 4.42 H Estim Creat Clear Calc 9.96 Est GFR (MDRD) Af Amer 13 L Est GFR (MDRD) Non-Af 11 L BUN/Creatinine Ratio 13.3 Glucose 227 H Lactic Acid Calcium 9.3 Total Bilirubin Direct Bilirubin AST ALT Alkaline Phosphatase Total Creatine Kinase 70676 H Troponin I Total Protein Albumin Globulin Urine Color Urine Clarity Urine pH Ur Specific [place] Urine Protein Urine Glucose (UA) Urine Ketones Urine Occult Blood Urine Nitrite Urine Bilirubin Urine Urobilinogen Ur Leukocyte Esterase Urine RBC Urine WBC Ur Squamous Epith Cells Urine Bacteria Urine Mucus Urine Yeast Ur Random Sodium Urine Creatinine 06/15/19 06/16/19 06/16/19 21:00 01:35 06:56 WBC 13.3 H RBC 3.32 L Hgb 9.4 L Hct 29.0 L MCV 87.3 MCH 28.3 MCHC 32.4 RDW Std Deviation 48.4 H RDW Coeff of Radha 15.4 H Plt Count 113 L MPV 10.2 Immature Gran % (Auto) 0.800 Neut % (Auto) 83.7 H Lymph % (Auto) 6.2 L [place] % (Auto) 8.4 Eos % (Auto) 0.7 Baso % (Auto) 0.2 Absolute Neuts (auto) 11.1 H Absolute Lymphs (auto) 0.82 L Nucleated RBC % 0 Differential Comment Diff Path Review Platelet Estimate Sodium Potassium Chloride Carbon Dioxide Anion Gap BUN Creatinine Estim Creat Clear Calc Est GFR (MDRD) Af Amer Est GFR (MDRD) Non-Af BUN/Creatinine Ratio Glucose Lactic Acid 2.8 H* 2.0 Calcium Total Bilirubin Direct Bilirubin AST ALT Alkaline Phosphatase Total Creatine Kinase Troponin I Total Protein Albumin Globulin Urine Color Urine Clarity Urine pH Ur Specific [place] Urine Protein Urine Glucose (UA) Urine Ketones Urine Occult Blood Urine Nitrite Urine Bilirubin Urine Urobilinogen Ur Leukocyte Esterase Urine RBC Urine WBC Ur Squamous Epith Cells Urine Bacteria Urine Mucus Urine Yeast Ur Random Sodium Urine Creatinine 06/16/19 06/16/19 06/16/19 06:56 06:56 16:05 WBC RBC Hgb Hct MCV MCH MCHC RDW Std Deviation RDW Coeff of Radha Plt Count MPV Immature Gran % (Auto) Neut % (Auto) Lymph % (Auto) [place] % (Auto) Eos % (Auto) Baso % (Auto) Absolute Neuts (auto) Absolute Lymphs (auto) Nucleated RBC % Differential Comment Diff Path Review Platelet Estimate Sodium 129 L Potassium 5.3 H Chloride 101 Carbon Dioxide 18.0 L Anion Gap 10 BUN 65 H Creatinine 3.98 H Estim Creat Clear Calc 11.06 Est GFR (MDRD) Af Amer 15 L Est GFR (MDRD) Non-Af 12 L BUN/Creatinine Ratio 16.3 Glucose 236 H Lactic Acid Calcium 7.9 L Total Bilirubin 0.60 Direct Bilirubin 0.14 AST 397 H ALT 74 H Alkaline Phosphatase 135 H Total Creatine Kinase Troponin I < 0.015 Total Protein 6.2 L Albumin 1.8 L Globulin 4.4 H Urine Color Urine Clarity Urine pH Ur Specific [place] Urine Protein Urine Glucose (UA) Urine Ketones Urine Occult Blood Urine Nitrite Urine Bilirubin Urine Urobilinogen Ur Leukocyte Esterase Urine RBC Urine WBC Ur Squamous Epith Cells Urine Bacteria Urine Mucus Urine Yeast Ur Random Sodium Urine Creatinine 06/17/19 06/17/19 04:00 04:00 WBC 7.4 RBC 2.65 L Hgb 7.6 L Hct 23.6 L MCV 89.1 MCH 28.7 MCHC 32.2 RDW Std Deviation 50.1 H RDW Coeff of Radha 15.4 H Plt Count 93 L MPV 9.8 Immature Gran % (Auto) 0.700 Neut % (Auto) 78.3 H Lymph % (Auto) 12.2 L [place] % (Auto) 8.4 Eos % (Auto) 0.4 Baso % (Auto) 0.0 Absolute Neuts (auto) 5.8 Absolute Lymphs (auto) 0.90 Nucleated RBC % 0 Differential Comment COMMENT Diff Path Review Platelet Estimate MOD DEC Sodium 135 L Potassium 4.5 Chloride 105 Carbon Dioxide 22.0 Anion Gap 8 BUN 66 H Creatinine 3.56 H Estim Creat Clear Calc 12.36 Est GFR (MDRD) Af Amer 17 L Est GFR (MDRD) Non-Af 14 L BUN/Creatinine Ratio 18.5 Glucose 152 H Lactic Acid Calcium 7.4 L Total Bilirubin Direct Bilirubin AST ALT Alkaline Phosphatase Total Creatine Kinase 6482 H Troponin I Total Protein Albumin Globulin Urine Color Urine Clarity Urine pH Ur Specific [place] Urine Protein Urine Glucose (UA) Urine Ketones Urine Occult Blood Urine Nitrite Urine Bilirubin Urine Urobilinogen Ur Leukocyte Esterase Urine RBC Urine WBC Ur Squamous Epith Cells Urine Bacteria Urine Mucus Urine Yeast Ur Random Sodium Urine Creatinine Clinical Impression(s) from Imaging Studies Chest X-Ray 06/16/19 19:40 IMPRESSION: 1. No acute findings. 2. PICC line terminates in the SVC. Electronically Signed: Yadira Colvin MD at 20:29 EST Tel , Service support , Current Medications Apixaban (Eliquis) 5 mg PO BID [facility] Last Admin: 06/16/19 21:19 Dose: 5 mg Documented by: Calamine/Phenol (Calmoseptine Ointment) 1 applic TOPICAL BID [facility]; Protocol Last Admin: 06/16/19 21:18 Dose: 1 applicatio Documented by: Citalopram Hydrobromide (Celexa) 20 mg PO DAILY [facility] Last Admin: 06/16/19 11:00 Dose: 20 mg Documented by: Dextrose (D50w Syringe) 0 gm IV X1 PRN; Protocol PRN Reason: Hypoglycemia Glucagon () 1 mg IM .X1 PRN PRN Reason: Hypoglycemia Sodium Chloride () 250 mls @ 15 mls/hr IV .[id number] PRN PRN Reason: Saline Flush Last Infusion: 06/16/19 05:30 Dose: 0 mls/hr Documented by: Sodium Chloride () 250 mls @ 15 mls/hr IV .[id number] PRN PRN Reason: Additional IVPB Infusion Sodium Chloride () 1,000 mls @ 150 mls/hr IV .Q6H40M [facility] Last Admin: 06/17/19 02:24 Dose: 150 mls/hr Documented by: Piperacillin Sod/Tazobactam (Sod 3.375 gm/ Sodium Chloride) 50 mls @ 12.5 mls/hr IV Q12 [facility] Last Infusion: 06/16/19 23:51 Dose: Infused Documented by: Norepinephrine Bitartrate 8 mg (/ Sodium Chloride) 250 mls @ 9.375 mls/hr CONT INF .[id number] [facility]; Protocol Last Admin: 06/17/19 01:10 Dose: Not Given Documented by: Nutritional Formula (Bernard - [place] Flavor) 1 packet PO BIDCM [facility] Last Admin: 06/16/19 16:18 Dose: 1 packet Documented by: Nystatin (Mycostatin Powder) 1 applic TOPICAL BID [facility]; Protocol Last Admin: 06/16/19 21:18 Dose: 1 applicatio Documented by: Ondansetron HCl (Zofran) 4 mg IV Q8H PRN PRN PRN Reason: NAUSEA/VOMITING Sodium Chloride () 10 - 40 ml IV UD PRN PRN Reason: SALINE FLUSH Assessment/Plan Active and Suspected Problems (Last Reviewed 04/08/19 @ 08:50 by Emi Keene) Acute renal failure (Acute) Hyponatremia (Acute) RECOMMENDATIONS: 1. Continue supplemental IV fluid hydration per the discretion of nephrology. 2. Encourage incentive spirometer use and mobilize patient as tolerated. 3. For sake of completeness, will check cosyntropin stimulation test. 4. Recommend empiric BiPAP therapy with naps and nightly. 5. I see no indication for antimicrobials at this time. IMPRESSIONS: 1. Transient hypotension Although the patient received supplemental IV fluids yesterday afternoon, there was documentation of persistent hypotension while in the progressive care unit. However, upon transfer to the ICU, and upon repositioning of the blood pressure cuff, the patient was noted to be normotensive. She is mentating appropriately. Vasopressor support was never required. The patient remains hemodynamically stable this morning. We will plan to check a cosyntropin stimulation test to evaluate for any adrenal insufficiency. However, I strongly doubt that this test will be abnormal. I do not see any evidence of a systemic infectious pro cess. Therefore, I am okay with antibiotics being discontinued. 2. Acute kidney injury Likely prerenal in etiology. Nephrology is currently following to assist with management. 3. Suspected sleep disordered breathing The patient does have a history of audible snoring and witnessed apneic events. I would recommend an outpatient polysomnogram be completed with initiation of nocturnal Pap therapy, if clinically indicated. 4. Morbid obesity/hypertension/diabetes mellitus/GERD/depression/chronic pain syndrome/paroxysmal atrial fibrillation Complicates care, management, recovery and prognosis. Continue home medications as indicated. This note was generated with [employer] dictation software. It may contain incorrect words, spelling, and punctuation that were not noted in checking the note before signing. Code Visit Inpatient E&M: 33815 Init Hosp L3
[2019-06-17] MEDS: Lactated Ringers 1,000 ML 150 ML IV ×3 (07:34→20:59)
[2019-06-17] MEDS: 0.9% Saline Lock 10 ML Syringe IV (07:40)
--- NOTE | 2019-06-17 08:46 | PCM.PN.REN ---
Patient Problems: Active and Suspected Problems (Last Reviewed 04/08/19 @ 08:50 by Emi Keene) Acute renal failure (Acute) Hyponatremia (Acute) Subjective: transferred to ICU for pressor support. Renal fxn, BP, potassium improved. She denies SOB, fever, chills. - Physical Exam Vitals/I&O's: Vital Signs Temp Pulse Resp BP Pulse Ox 97.8 F 78 22 H 101/57 L 95 06/17/19 08:00 06/17/19 08:00 06/17/19 08:00 06/17/19 08:00 06/17/19 08:00 Oxygen Delivery Method Room Air Weight: 131 kg Body Mass Index (BMI) 51.0 Finger Stick Blood Glucose 236 Intake and Output for Last 24 Hours 06/15/19 06/16/19 06/17/19 23:59 23:59 23:59 Intake Total 1090 / 1090 6362.50 / 6362.50 1787.5 / 1787.5 Output Total 610 / 610 500 / 500 Balance 1090 / 1090 5752.50 / 5752.50 1287.5 / 1287.5 General: Alert, Oriented x3, Cooperative, No apparent distress Lungs: Clear to auscultation, Diminished Cardiovascular: Regular rate, No rub noted Abdomen: Bowel Sounds Present, Obese Extremities: No edema Skin: - - panniculitis Musculoskeletal: - - chronic debilitation Psych/Mental Status: Normal Affect, Appropriate, Alert and oriented to time, place, person, mood and affect Laboratory Results 06/15/19 16:15: Diff Path Review Reviewed 06/16/19 06:56: Total Bilirubin 0.60, Direct Bilirubin 0.14, AST 397 H, ALT 74 H, Alkaline Phosphatase 135 H, Total Protein 6.2 L, Albumin 1.8 L, Globulin 4.4 H 06/16/19 16:05: Troponin I < 0.015 06/17/19 04:00: WBC 7.4, RBC 2.65 L, Hgb 7.6 L, Hct 23.6 L, MCV 89.1, MCH 28.7, MCHC 32.2, RDW Std Deviation 50.1 H, RDW Coeff of Radha 15.4 H, Plt Count 93 L, MPV 9.8, Immature Gran % (Auto) 0.700, Neut % (Auto) 78.3 H, Lymph % (Auto) 12.2 L, [place] % (Auto) 8.4, Eos % (Auto) 0.4, Baso % (Auto) 0.0, Absolute Neuts (auto) 5.8, Absolute Lymphs (auto) 0.90, Nucleated RBC % 0, Differential Comment COMMENT, Platelet Estimate MOD DEC 06/17/19 04:00: Sodium 135 L, Potassium 4.5, Chloride 105, Carbon Dioxide 22.0, Anion Gap 8, BUN 66 H, Creatinine 3.56 H, Estim Creat Clear Calc 12.36, Est GFR (MDRD) Af Amer 17 L, Est GFR (MDRD) Non-Af 14 L, BUN/Creatinine Ratio 18.5, Glucose 152 H, Calcium 7.4 L, Total Creatine Kinase 6482 H Current Medications Apixaban (Eliquis) 5 mg PO BID [facility] Last Admin: 06/16/19 21:19 Dose: 5 mg Documented by: Calamine/Phenol (Calmoseptine Ointment) 1 applic TOPICAL BID [facility]; Protocol Last Admin: 06/16/19 21:18 Dose: 1 applicatio Documented by: Citalopram Hydrobromide (Celexa) 20 mg PO DAILY [facility] Last Admin: 06/16/19 11:00 Dose: 20 mg Documented by: Glucagon () 1 mg IM .X1 PRN PRN Reason: Hypoglycemia Sodium Chloride () 250 mls @ 15 mls/hr IV .[id number] PRN PRN Reason: Saline Flush Last Infusion: 06/16/19 05:30 Dose: 0 mls/hr Documented by: Sodium Chloride () 250 mls @ 15 mls/hr IV .[id number] PRN PRN Reason: Additional IVPB Infusion Piperacillin Sod/Tazobactam (Sod 3.375 gm/ Sodium Chloride) 50 mls @ 12.5 mls/hr IV Q12 [facility] Last Infusion: 06/16/19 23:51 Dose: Infused Documented by: Lactated Ringer's () 1,000 mls @ 150 mls/hr IV .Q6H40M [facility] Last Admin: 06/17/19 07:34 Dose: 150 mls/hr Documented by: Dextrose (Dextrose 10%-Water) 250 mls @ 999 mls/hr IV .Q16M PRN; Protocol PRN Reason: HYPOGLYCEMIA Cosyntropin 0.25 mg/ Sodium (Chloride) 1 mls @ 30 mls/hr IV X1 ONE Stop: 06/17/19 08:23 Nutritional Formula (Bernard - [place] Flavor) [facility] Last Admin: 06/17/19 07:35 Dose: 1 packet Documented by: Nystatin (Mycostatin Powder) 1 applic TOPICAL BID [facility]; Protocol Last Admin: 06/16/19 21:18 Dose: 1 applicatio Documented by: Ondansetron HCl (Zofran) 4 mg IV Q8H PRN PRN PRN Reason: NAUSEA/VOMITING Sodium Chloride () 10 - 40 ml IV UD PRN PRN Reason: SALINE FLUSH Last Admin: 06/17/19 07:40 Dose: 10 ml Documented by: Medical Necessity - Tobacco Use Smoking Status: Never smoker Tobacco Use: Non-smoker Assessment/Plan All Active Problems (Last Reviewed 04/08/19 @ 08:50 by Emi Keene) Skin necrosis (Acute) Pressure injury of right perineal ischial region, unstageable (Acute) Pressure injury of left perineal ischial region, unstageable (Acute) Septic shock (Acute) Acute renal failure (Acute) Hyperkalemia (Acute) Sepsis (Acute) Panniculitis (Acute) JH (acute kidney injury) (Acute) Hyperkalemia (Acute) Hyponatremia (Acute) ARF (acute renal failure) (Resolved) Acute cystitis (Resolved) Decubitus ulcer of left ischium, stage 4 (Resolved) Hyperkalemia (Resolved) Hypoglycemia associated with type 2 diabetes mellitus (Resolved) Open wound of umbilical region (Resolved) Pressure sore of left ischium, unstageable (Resolved) Rhabdomyolysis (Resolved) Right ischial pressure sore, stage 2 (Resolved) Right ischial pressure sore, stage 3 (Resolved) Skin necrosis (Resolved) 1. JH due to prerenal event, hypotension, dehydration. Creatinine improving. Baseline creatinine 0.95 on discharge 05/15/19 from [facility] 2. Super morbid obesity with panniculitis 3. Hypotension/shock, leukocytosis, afebrile. blood cx sent. 4. Debilitation/rhabdomyolysis. 5. Hyperkalemia resolved 6. Panniculitis on iv antibx. Leukocytosis improving
[2019-06-17] MEDS: Nystatin Powder 15gm Bottle 1 APPLIC TOPICAL ×2 (10:37→21:19)
[2019-06-17] MEDS: Cosyntropin 0.25 MG in 0.9% Normal Saline (Pres. free 1 ML 30 MG IV (10:37)
[2019-06-17] MEDS: Citalopram 20 MG Tablet PO (10:38)
[2019-06-17] MEDS: Menthol/Lanolin/Calamine/Znox 113 GM Tube 1 APPLIC TOPICAL ×2 (10:38→21:20)
[2019-06-17] MEDS: APIXABAN 5 MG TABLET PO ×2 (10:38→21:28)
[2019-06-17] MEDS: Acetaminophen 325 MG Tablet 650 MG PO (12:40)
--- NOTE | 2019-06-17 12:48 | PCM.PN.HOSP ---
Patient Problems: Active and Suspected Problems (Last Reviewed 04/08/19 @ 08:50 by Emi Keene) Acute renal failure (Acute) Hyponatremia (Acute) Reason for Visit: Rhabdo, weakness Subjective: Patient resting comfortably in bed NAD. No SOB, no LH/dizziness. No myalgias. Tolerating guo. No abd pain. No fever/chills. Vitals/I&O's: Vital Signs Temp Pulse Resp BP Pulse Ox 97.2 F L 77 21 H 110/58 L 95 06/17/19 12:00 06/17/19 12:00 06/17/19 12:00 06/17/19 12:00 06/17/19 12:00 Oxygen Delivery Method Room Air Weight: 288 lb 12.889 oz Body Mass Index (BMI) 51.0 Finger Stick Blood Glucose 236 Intake and Output for Last 24 Hours 06/15/19 06/16/19 06/17/19 23:59 23:59 23:59 Intake Total 1090 / 1090 6362.50 / 6362.50 1988.5 / 1988.5 Output Total 610 / 610 1100 / 1100 Balance 1090 / 1090 5752.50 / 5752.50 888.5 / 888.5 General: Alert, Oriented x3, Cooperative HEENT: Atraumatic, PERRLA, EOMI, Normocephalic Neck: Supple, No JVD, Negative Carotid Bruits Lungs: Clear to auscultation, Normal air movement Cardiovascular: Regular rate, No murmurs Abdomen: Bowel Sounds Present, Soft, Non Tender Extremities: No edema, Capillary Refill Less than 3 Seconds Skin: No rashes, No breakdown Musculoskeletal: No Tenderness to Palpation of Joints or Extremities Neurological: Cranial nerves II-XII grossly intact Psych/Mental Status: Normal Affect, Appropriate, Alert and oriented to time, place, person, mood and affect Laboratory Results 06/15/19 16:15: Diff Path Review Reviewed 06/16/19 16:05: Troponin I < 0.015 06/17/19 04:00: WBC 7.4, RBC 2.65 L, Hgb 7.6 L, Hct 23.6 L, MCV 89.1, MCH 28.7, MCHC 32.2, RDW Std Deviation 50.1 H, RDW Coeff of Radha 15.4 H, Plt Count 93 L, MPV 9.8, Immature Gran % (Auto) 0.700, Neut % (Auto) 78.3 H, Lymph % (Auto) 12.2 L, [place] % (Auto) 8.4, Eos % (Auto) 0.4, Baso % (Auto) 0.0, Absolute Neuts (auto) 5.8, Absolute Lymphs (auto) 0.90, Nucleated RBC % 0, Differential Comment COMMENT, Platelet Estimate MOD 06/17/19 04:00: Sodium 135 L, Potassium 4.5, Chloride 105, Carbon Dioxide 22.0, Anion Gap 8, BUN 66 H, Creatinine 3.56 H, Estim Creat Clear Calc 12.36, Est GFR (MDRD) Af Amer 17 L, Est GFR (MDRD) Non-Af 14 L, BUN/Creatinine Ratio 18.5, Glucose 152 H, Calcium 7.4 L, Total Creatine Kinase 6482 H 06/17/19 08:45: Cortisol 26.10 H 06/17/19 11:15: Cortisol 42.40 H 06/17/19 11:45: Cortisol 50.90 H Current Medications Acetaminophen (Tylenol) 650 mg PO Q6H PRN PRN PRN Reason: Pain Score 1-02/12 Last Admin: 06/17/19 12:40 Dose: 650 mg Documented by: Apixaban (Eliquis) 5 mg PO BID [facility] Last Admin: 06/17/19 10:38 Dose: 5 mg Documented by: Calamine/Phenol (Calmoseptine Ointment) 1 applic TOPICAL BID [facility]; Protocol Last Admin: 06/17/19 10:38 Dose: 1 applicatio Documented by: Citalopram Hydrobromide (Celexa) 20 mg PO DAILY [facility] Last Admin: 06/17/19 10:38 Dose: 20 mg Documented by: Glucagon () 1 mg IM .X1 PRN PRN Reason: Hypoglycemia Sodium Chloride () 250 mls @ 15 mls/hr IV .[id number] PRN PRN Reason: Saline Flush Last Infusion: 06/16/19 05:30 Dose: 0 mls/hr Documented by: Sodium Chloride () 250 mls @ 15 mls/hr IV .[id number] PRN PRN Reason: Additional IVPB Infusion Piperacillin Sod/Tazobactam (Sod 3.375 gm/ Sodium Chloride) 50 mls @ 12.5 mls/hr IV Q12 [facility] Last Admin: 06/17/19 10:36 Dose: 12.5 mls/hr Documented by: Lactated Ringer's () 1,000 mls @ 150 mls/hr IV .Q6H40M [facility] Last Admin: 06/17/19 07:34 Dose: 150 mls/hr Documented by: Dextrose (Dextrose 10%-Water) 250 mls @ 999 mls/hr IV .Q16M PRN; Protocol PRN Reason: HYPOGLYCEMIA Nutritional Formula (Bernard - [place] Flavor) 1 packet PO BIDCM [facility] Last Admin: 06/17/19 07:35 Dose: 1 packet Documented by: Nystatin (Mycostatin Powder) 1 applic TOPICAL BID [facility]; Protocol Last Admin: 06/17/19 10:37 Dose: 1 applicatio Documented by: Ondansetron HCl (Zofran) 4 mg IV Q8H PRN PRN PRN Reason: NAUSEA/VOMITING Sodium Chloride () 10 - 40 ml IV UD PRN PRN Reason: SALINE FLUSH Last Admin: 06/17/19 07:40 Dose: 10 ml Documented by: STROKE Vital Signs/Narrative: Vital Signs Temp Pulse Resp BP BP Pulse Ox 06/17/19 12:00 97.2 F L 77 21 H 110/58 L 95 06/17/19 11:38 86 06/17/19 11:00 85 18 105/55 L 96 06/17/19 10:00 97.5 F L 77 17 107/49 L 97 06/17/19 09:00 76 19 H 120/84 H 98 Medical Necessity - Tobacco Use Smoking Status: Never smoker Tobacco Use: Non-smoker Assessment/Plan All Active Problems (Last Reviewed 04/08/19 @ 08:50 by Emi Keene) Skin necrosis (Acute) Pressure injury of right perineal ischial region, unstageable (Acute) Pressure injury of left perineal ischial region, unstageable (Acute) Septic shock (Acute) Acute renal failure (Acute) Hyperkalemia (Acute) Sepsis (Acute) Panniculitis (Acute) JH (acute kidney injury) (Acute) Hyperkalemia (Acute) Hyponatremia (Acute) ARF (acute renal failure) (Resolved) Acute cystitis (Resolved) Decubitus ulcer of left ischium, stage 4 (Resolved) Hyperkalemia (Resolved) Hypoglycemia associated with type 2 diabetes mellitus (Resolved) Open wound of umbilical region (Resolved) Pressure sore of left ischium, unstageable (Resolved) Rhabdomyolysis (Resolved) Right ischial pressure sore, stage 2 (Resolved) Right ischial pressure sore, stage 3 (Resolved) Skin necrosis (Resolved) 1. JH 2/2 acute rhabdomyolysis 2/2 sitting on toilet x 12 hours - improved. bp stable. some improvement in renal function. hyponatremia improving, K+ normal. Abnormal LFTs. 2. Thrombocytopenia - platelets declined 247-->113-->93. On eliquis, no asa/lovenox/heparin. Hgb declined from 12 to 9.4-->7.6. check stool occult blood, iron/tibc. not likely to be entirely dilutional. LFTs abnormal. Check INR. 3. Large abdominal pannus - follow up with plastics as outpatient. She completed outpatient IV abx for this. She was seen at [facility] and was told she did not need surgery. On zosyn. ID following. 4. T2DM with morbid obesity - a1c 7.0. she is not on any medications for this at home. will add SSI/accuchecks. 5. Paroysmal afib - eliquis. metoprolol held for hypotension. rate controlled. 6. HTN - hypotension improved. still borderline. good cortisol response to cosyntropin. 7. Anxiety/Depression - celexa 8. Chronic pain - held oxycontin, gabapentin, zanaflex for hypotension DVT ppx: eliquse GRUBER planning: return to SNF This patient was seen by Elias Nascimento PA-C under the supervision of Dr. King.
[2019-06-17 13:53] LABS: International Normalized Ratio 2.2; Prothrombin Time (Protime)PT. 24.5 SECONDS (11.7-14.9)
[2019-06-17 14:04] LABS: Ferritin 373 ng/mL (8-252); Iron 19 ug/dL (50-170); Iron Binding Capacity,Total 127 ug/dL (250-450)
--- NOTE | 2019-06-17 15:01 | PCM.PN.ID ---
Patient Problems: Active and Suspected Problems (Last Reviewed 04/08/19 @ 08:50 by Emi Keene) Acute renal failure (Acute) Hyponatremia (Acute) Subjective: Feeling fine, no fever, no abd pain, no n/v/d. - Physical Exam Vitals/I&O's: Vital Signs Temp Pulse Resp BP Pulse Ox 98 F 86 18 109/90 H 99 06/17/19 14:00 06/17/19 14:00 06/17/19 14:00 06/17/19 14:00 06/17/19 14:00 Oxygen Delivery Method Room Air Weight: 131 kg Body Mass Index (BMI) 51.0 Finger Stick Blood Glucose 236 Intake and Output for Last 24 Hours 06/15/19 06/16/19 06/17/19 23:59 23:59 23:59 Intake Total 1090 / 1090 6362.50 / 6362.50 2988.5 / 2988.5 Output Total 610 / 610 1100 / 1100 Balance 1090 / 1090 5752.50 / 5752.50 1888.5 / 1888.5 General: Alert, Cooperative, No apparent distress Lungs: Clear to auscultation, Normal air movement Cardiovascular: Regular rate, Regular Rhythm Abdomen: Soft, Non Tender, Obese Skin: No rashes Laboratory Results 06/16/19 16:05: Troponin I < 0.015 06/17/19 04:00: WBC 7.4, RBC 2.65 L, Hgb 7.6 L, Hct 23.6 L, MCV 89.1, MCH 28.7, MCHC 32.2, RDW Std Deviation 50.1 H, RDW Coeff of Radha 15.4 H, Plt Count 93 L, MPV 9.8, Immature Gran % (Auto) 0.700, Neut % (Auto) 78.3 H, Lymph % (Auto) 12.2 L, [place] % (Auto) 8.4, Eos % (Auto) 0.4, Baso % (Auto) 0.0, Absolute Neuts (auto) 5.8, Absolute Lymphs (auto) 0.90, Nucleated RBC % 0, Differential Comment COMMENT, Platelet Estimate MOD DEC 06/17/19 04:00: Sodium 135 L, Potassium 4.5, Chloride 105, Carbon Dioxide 22.0, Anion Gap 8, BUN 66 H, Creatinine 3.56 H, Estim Creat Clear Calc 12.36, Est GFR (MDRD) Af Amer 17 L, Est GFR (MDRD) Non-Af 14 L, BUN/Creatinine Ratio 18.5, Glucose 152 H, Calcium 7.4 L, Total Creatine Kinase 6482 H 06/17/19 08:45: Cortisol 26.10 H 06/17/19 11:15: Cortisol 42.40 H 06/17/19 11:45: Cortisol 50.90 H 06/17/19 : PT 24.5 H, INR 2.2 06/17/19 : Iron 19 L, TIBC 127 L, Iron Saturation 15.0, Ferritin 373 H Current Medications Acetaminophen (Tylenol) 650 mg PO Q6H PRN PRN PRN Reason: Pain Score 1-02/12 Last Admin: 06/17/19 12:40 Dose: 650 mg Documented by: Apixaban (Eliquis) 5 mg PO BID [facility] Last Admin: 06/17/19 10:38 Dose: 5 mg Documented by: Calamine/Phenol (Calmoseptine Ointment) 1 applic TOPICAL BID [facility]; Protocol Last Admin: 06/17/19 10:38 Dose: 1 applicatio Documented by: Citalopram Hydrobromide (Celexa) 20 mg PO DAILY [facility] Last Admin: 06/17/19 10:38 Dose: 20 mg Documented by: Glucagon () 1 mg IM .X1 PRN PRN Reason: Hypoglycemia Sodium Chloride () 250 mls @ 15 mls/hr IV .[id number] PRN PRN Reason: Saline Flush Last Infusion: 06/16/19 05:30 Dose: 0 mls/hr Documented by: Sodium Chloride () 250 mls @ 15 mls/hr IV .[id number] PRN PRN Reason: Additional IVPB Infusion Lactated Ringer's () 1,000 mls @ 150 mls/hr IV .Q6H40M [facility] Last Admin: 06/17/19 14:25 Dose: 150 mls/hr Documented by: Dextrose (Dextrose 10%-Water) 250 mls @ 999 mls/hr IV .Q16M PRN; Protocol PRN Reason: HYPOGLYCEMIA Insulin Human Lispro (Humalog Kwikpen (Bkc)) 0 unit SC ACHS [facility]; Protocol Nutritional Formula (Bernard - [place] Flavor) [facility] Last Admin: 06/17/19 07:35 Dose: 1 packet Documented by: Nystatin (Mycostatin Powder) 1 applic TOPICAL BID [facility]; Protocol Last Admin: 06/17/19 10:37 Dose: 1 applicatio Documented by: Ondansetron HCl (Zofran) 4 mg IV Q8H PRN PRN PRN Reason: NAUSEA/VOMITING Sodium Chloride () 10 - 40 ml IV UD PRN PRN Reason: SALINE FLUSH Last Admin: 06/17/19 07:40 Dose: 10 ml Documented by: Medical Necessity - Tobacco Use Smoking Status: Never smoker Tobacco Use: Non-smoker Route of nutrition/ use of supplements: [] Nutritional Intake: [] IV Site: [] South Catheter: [] - Assessment/Plan Antibiotics: [] Assessment/Plan: [] Active and Suspected Problems (Last Reviewed 04/08/19 @ 08:50 by Emi Keene) Acute renal failure (Acute) Hyponatremia (Acute) Wbc now normal Presented with JH, lactic acidosis. Recent admit for panniculitis requiring discharge to [facility] on iv abx. Pannus appears to be doing relatively well. Low suspicion for new bacterial infection at this time given her history and exam. Will stop zosyn. Will follow, d/w nursing
[2019-06-17] MEDS: Insulin Lispro 100 UNIT/ML INSULN.PEN SC ×2 (15:03→21:26)
[2019-06-17 15:11] LABS: Bedside Glucose 228 mg/dL (70-110)
--- NOTE | 2019-06-17 15:32 | CASEMGMT ---
SW spoke with patient to see if she has decided what facility she would like to go to. She has not decided as she has not talked with her sister yet. Kassy ZAMORANO MSW
[2019-06-17 21:31] LABS: Bedside Glucose 286 mg/dL (70-110)
--- NOTE | 2019-06-17 22:26 | PCM.PN.SRG ---
Patient Problems: Active and Suspected Problems (Last Reviewed 04/08/19 @ 08:50 by Emi Keene) Acute renal failure (Acute) Hyponatremia (Acute) Subjective: Patient is known to me because of a massive abdominal panniculus with panniculitis. She was last seen in the hospital on 05/09/19. The patient is a 64 y/o F who was recently admitted because she had fallen asleep at home and developed muscle damage. She was recently in the ICU with hypotension which resolved. She also has kidney issues as well. She had similar kidney issues and hypotension last month as well which prompted a transfer to a tertiary center. She had pressure injury in her perineum at that time as well as ulceration in her panniculus. Her pressure injury resolved and the ulceration and redness resolved and no surgery was done at the tertiary center. I was asked to evaluate the patient for her large abdominal panniculus. She has a history of atrial fibrillation that was uncontrolled and she is in the process of seeing Cardiology for that. She had an appointment last April which she did not show up for. Her repeat appointment in May had to be cancelled because she was hospitalized. - Physical Exam Vitals/I&O's: Vital Signs Temp Pulse Resp BP Pulse Ox 97.9 F 81 25 H 110/53 L 100 06/17/19 20:39 06/17/19 21:37 06/17/19 21:37 06/17/19 20:39 06/17/19 21:37 Oxygen Delivery Method Room Air Weight: 288 lb 12.889 oz Body Mass Index (BMI) 51.0 Finger Stick Blood Glucose 236 Intake and Output for Last 24 Hours 06/15/19 06/16/19 06/17/19 23:59 23:59 23:59 Intake Total 1090 / 1090 6362.50 / 6362.50 4023.5 / 4023.5 Output Total 610 / 610 1750 / 1750 Balance 1090 / 1090 5752.50 / 5752.50 2273.5 / 2273.5 General: Alert, Oriented x3 HEENT: PERRLA, EOMI Oral: Moist Mucosa Neck: Supple Abdomen: Soft, Non-Distended, - - No redness seen on her large abdominal panniculus. Areas of intertrigo are stable. Powder is being used. Skin: - - No areas of necrosis or ulceration in her perineal area. Neurological: Cranial nerves II-XII grossly intact Psych/Mental Status: Normal Affect, Appropriate Laboratory Results 06/17/19 04:00: WBC 7.4, RBC 2.65 L, Hgb 7.6 L, Hct 23.6 L, MCV 89.1, MCH 28.7, MCHC 32.2, RDW Std Deviation 50.1 H, RDW Coeff of Radha 15.4 H, Plt Count 93 L, MPV 9.8, Immature Gran % (Auto) 0.700, Neut % (Auto) 78.3 H, Lymph % (Auto) 12.2 L, [place] % (Auto) 8.4, Eos % (Auto) 0.4, Baso % (Auto) 0.0, Absolute Neuts (auto) 5.8, Absolute Lymphs (auto) 0.90, Nucleated RBC % 0, Differential Comment COMMENT, Platelet Estimate MOD 06/17/19 04:00: Sodium 135 L, Potassium 4.5, Chloride 105, Carbon Dioxide 22.0, Anion Gap 8, BUN 66 H, Creatinine 3.56 H, Estim Creat Clear Calc 12.36, Est GFR (MDRD) Af Amer 17 L, Est GFR (MDRD) Non-Af 14 L, BUN/Creatinine Ratio 18.5, Glucose 152 H, Calcium 7.4 L, Total Creatine Kinase 6482 H 06/17/19 08:45: Cortisol 26.10 H 06/17/19 11:15: Cortisol 42.40 H 06/17/19 11:45: Cortisol 50.90 H 06/17/19 15:00: POC Glucose 228 H 06/17/19 21:25: POC Glucose 286 H 06/17/19 : PT 24.5 H, INR 2.2 06/17/19 : Iron 19 L, TIBC 127 L, Iron Saturation 15.0, Ferritin 373 H Current Medications Acetaminophen (Tylenol) 650 mg PO Q6H PRN PRN PRN Reason: Pain Score 1-10/10 Last Admin: 06/17/19 12:40 Dose: 650 mg Documented by: Apixaban (Eliquis) 5 mg PO BID [facility] Last Admin: 06/17/19 21:28 Dose: 5 mg Documented by: Calamine/Phenol (Calmoseptine Ointment) 1 applic TOPICAL BID [facility]; Protocol Last Admin: 06/17/19 21:20 Dose: 1 applicatio Documented by: Citalopram Hydrobromide (Celexa) 20 mg PO DAILY [facility] Last Admin: 06/17/19 10:38 Dose: 20 mg Documented by: Glucagon () 1 mg IM .X1 PRN PRN Reason: Hypoglycemia Sodium Chloride () 250 mls @ 15 mls/hr IV .[id number] PRN PRN Reason: Saline Flush Last Infusion: 06/16/19 05:30 Dose: 0 mls/hr Documented by: Sodium Chloride () 250 mls @ 15 mls/hr IV .[id number] PRN PRN Reason: Additional IVPB Infusion Lactated Ringer's () 1,000 mls @ 150 mls/hr IV .Q6H40M [facility] Last Admin: 06/17/19 20:59 Dose: 150 mls/hr Documented by: Dextrose (Dextrose 10%-Water) 250 mls @ 999 mls/hr IV .Q16M PRN; Protocol PRN Reason: HYPOGLYCEMIA Insulin Human Lispro (Humalog Kwikpen (Bkc)) 0 unit SC ACHS [facility]; Protocol Last Admin: 06/17/19 21:26 Dose: 2 u Documented by: Nutritional Formula (Bernard - [place] Flavor) 1 packet PO BIDCM [facility] Last Admin: 06/17/19 17:53 Dose: 1 packet Documented by: Nystatin (Mycostatin Powder) 1 applic TOPICAL BID [facility]; Protocol Last Admin: 06/17/19 21:19 Dose: 1 applicatio Documented by: Ondansetron HCl (Zofran) 4 mg IV Q8H PRN PRN PRN Reason: NAUSEA/VOMITING Sodium Chloride () 10 - 40 ml IV UD PRN PRN Reason: SALINE FLUSH Last Admin: 06/17/19 07:40 Dose: 10 ml Documented by: Medical Necessity - Tobacco Use Smoking Status: Never smoker Tobacco Use: Non-smoker Assessment/Plan All Active Problems (Last Reviewed 04/08/19 @ 08:50 by Emi Keene) Skin necrosis (Acute) Pressure injury of right perineal ischial region, unstageable (Acute) Pressure injury of left perineal ischial region, unstageable (Acute) Septic shock (Acute) Acute renal failure (Acute) Hyperkalemia (Acute) Sepsis (Acute) Panniculitis (Acute) JH (acute kidney injury) (Acute) Hyperkalemia (Acute) Hyponatremia (Acute) ARF (acute renal failure) (Resolved) Acute cystitis (Resolved) Decubitus ulcer of left ischium, stage 4 (Resolved) Hyperkalemia (Resolved) Hypoglycemia associated with type 2 diabetes mellitus (Resolved) Open wound of umbilical region (Resolved) Pressure sore of left ischium, unstageable (Resolved) Rhabdomyolysis (Resolved) Right ischial pressure sore, stage 2 (Resolved) Right ischial pressure sore, stage 3 (Resolved) Skin necrosis (Resolved) ASSESSMENT 1. Abdominal panniculus with panniculitis, stable. 2. Painful insulin nodules abdominal wall. 3. Recent weight loss. 4. Abdominal wall skin crease intertrigo, stable. 5. Diabetes mellitus. 6. Difficulty balancing when standing and when ambulating. 7. Obesity. 8. History of bilateral ischial pressure sores. PLAN Above events noted. Her abdominal panniculus is stable. Her intertrigo is stable at this time. No clinical evidence of infection. She had been on Vancomycin and Zosyn and they have been stopped. She is being evaluated for an ECF at this time. With her recent muscle damage that is resolving, she will need PT to help with ambulation and strengthening. Right now she states she cannot get out of bed without assist. After discharge, she should followup with her Senior Graphic Designer for her atrial fibrillation. With her recent hospitalizations for multiple medical co-morbidities, she is at high risk for any surgical procedure. May need to have her evaluated at another tertiary center for any surgical procedures in the future, such as in [place] or [place]. My office can assist in making that outpatient appointment. Code Visit Inpatient E&M: 19130 Subs Hosp L1 - ICD-10 - E65, M79.3, T88.9xxS, R63.4, L30.4, E11.9, R26.89, E66.01, Z87.2, Z79.01
[2019-06-18 04:01] VITALS: BP 117/59; PULSE 79; RESP 18; TEMP 36.8; O2SAT 98
[2019-06-18] MEDS: Lactated Ringers 1,000 ML 150 ML IV (04:08)
[2019-06-18 05:39] LABS: Absolute Neutrophil Count 4.8 X10^3/uL (2.0-7.7); Eosinophil# 0.02 X10^3/uL; Eosinophils% 0.3 % (0-5); Hematocrit 22.7 % (37-47); Hemoglobin 7.2 g/dL (12.0-15.0); Mean Corp Hgb Conc 31.7 g/dL (32-36); Mean Corpuscular Hgb 28.1 pg (27.0-32.0); Mean Corpuscular Volume 88.7 fL (81-99); Mean Platelet Vol. 10.1 fl (6.2-12.0); Monocyte# 0.43 X10^3/uL; NRBC Flagged by Analyzer 0 % (0-5); Neutrophil # 4.84 X10^3/uL (2.7-7.7); Neutrophil % 78.9 % (47-70); Platelet Count 102 K/mm3 (150-450); RBC Distribution Width CV 15.5 % (11.6-14.6); RBC Distribution Width SD 49.4 fl (35.1-43.9); Red Blood Count 2.56 M/mm3 (4.2-5.4); White Blood Count 6.1 K/mm3 (4.4-11.0)
[2019-06-18 06:01] LABS: ALB/GLOB Ratio 0.4 RATIO (0.9-2.4); AST(SGOT) 167 U/L (15-37); Alanine Aminotransfer ALT/SGPT 54 U/L (13-56); Albumin, Serum 1.5 g/dL (3.2-5.0); Alkaline Phosphatase 115 U/L (45-117); Anion Gap 7 (5-15); BUN 70 mg/dL (7-18); BUN/Creat Ratio 24.6 RATIO (10-20); Calcium,Total 7.6 mg/dL (8.5-10.1); Chloride 107 mmol/L (98-107); Creatinine, Serum 2.84 mg/dL (0.55-1.02); EST Glomerular Filtration Rate 18 mL/min (>60); Est Glom Filt Rate - Afr Amer 22 mL/min (>60); Globulin 3.9 g/dL (2.2-4.2); Glucose 167 mg/dL (74-106); Protein, Total 5.4 g/dL (6.4-8.2); Sodium Level 137 mmol/L (136-145)
--- NOTE | 2019-06-18 06:34 | PN_ITS ---
Patient Problems: Active and Suspected Problems (Last Reviewed 04/08/19 @ 08:50 by Emi Keene) Iron deficiency anemia (Acute) Acute renal failure (Acute) Hyponatremia (Acute) Subjective: The patient was seen and examined at the bedside this morning. Events from the last 24 hours have been reviewed. The patient is currently afebrile, hemodynamically stable and maintaining appropriate oxygen saturations on room air. The patient tolerated BiPAP for part of the night. She is currently documented to be overall net positive 10+ liters for the hospital admission. The patient responded appropriately to a cosyntropin stimulation test yesterday. Objective: The patient's most recent lab work, culture data and imaging studies have all been personally reviewed. - Physical Exam Vitals/I&O's: Vital Signs Temp Pulse Resp BP Pulse Ox 98.2 F 79 18 117/59 L 98 06/18/19 04:01 06/18/19 04:01 06/18/19 04:01 06/18/19 04:01 06/18/19 04:01 Oxygen Delivery Method Room Air Weight: 638 lb 3.811 oz Body Mass Index (BMI) 51.0 Finger Stick Blood Glucose 236 Intake and Output for Last 24 Hours 06/16/19 06/17/19 06/18/19 23:59 23:59 23:59 Intake Total 6362.50 / 6362.50 4323.5 / 4323.5 1000 / 1000 Output Total 610 / 610 1950 / 1950 Balance 5752.50 / 5752.50 2373.5 / 2373.5 1000 / 1000 General: Alert, Cooperative, No apparent distress HEENT: Atraumatic, Normocephalic Oral: No Gingival or Mucosal Lesions/ Ulcerations Neck: Supple, No Nodes, Trachea Midline Lungs: Diminished Cardiovascular: Regular rate, Regular Rhythm, Normal S1, Normal S2 Abdomen: Bowel Sounds Present, Soft, Non Tender, Obese Extremities: No clubbing, No cyanosis, Edema Skin: - - No significant change from previous Musculoskeletal: No Muscle Wasting Lymphatic: No Cervical, Supraclavicular, or Inguinal Adenopathy Neurological: Neuro grossly intact Psych/Mental Status: Normal Affect, Appropriate Labs (Last 48 Hours) 06/15/19 06/16/19 06/16/19 16:15 06:56 06:56 WBC 13.3 H RBC 3.32 L Hgb 9.4 L Hct 29.0 L MCV 87.3 MCH 28.3 MCHC 32.4 RDW Std Deviation 48.4 H RDW Coeff of Radha 15.4 H Plt Count 113 L MPV 10.2 Immature Gran % (Auto) 0.800 Neut % (Auto) 83.7 H Lymph % (Auto) 6.2 L [place] % (Auto) 8.4 Eos % (Auto) 0.7 Baso % (Auto) 0.2 Absolute Neuts (auto) 11.1 H Absolute Lymphs (auto) 0.82 L Nucleated RBC % 0 Differential Comment Diff Path Review Reviewed Platelet Estimate PT INR Sodium 129 L Potassium 5.3 H Chloride 101 Carbon Dioxide 18.0 L Anion Gap 10 BUN 65 H Creatinine 3.98 H Estim Creat Clear Calc 11.06 Est GFR (MDRD) Af Amer 15 L Est GFR (MDRD) Non-Af 12 L BUN/Creatinine Ratio 16.3 Glucose 236 H Calcium 7.9 L Iron TIBC Iron Saturation Ferritin Total Bilirubin Direct Bilirubin AST ALT Alkaline Phosphatase Total Creatine Kinase Troponin I Total Protein Albumin Globulin Albumin/Globulin Ratio Cortisol POC Glucose 06/16/19 06/16/19 06/17/19 06:56 16:05 04:00 WBC 7.4 RBC 2.65 L Hgb 7.6 L Hct 23.6 L MCV 89.1 MCH 28.7 MCHC 32.2 RDW Std Deviation 50.1 H RDW Coeff of Radha 15.4 H Plt Count 93 L MPV 9.8 Immature Gran % (Auto) 0.700 Neut % (Auto) 78.3 H Lymph % (Auto) 12.2 L [place] % (Auto) 8.4 Eos % (Auto) 0.4 Baso % (Auto) 0.0 Absolute Neuts (auto) 5.8 Absolute Lymphs (auto) 0.90 Nucleated RBC % 0 Differential Comment COMMENT Diff Path Review Platelet Estimate MOD DEC PT INR Sodium Potassium Chloride Carbon Dioxide Anion Gap BUN Creatinine Estim Creat Clear Calc Est GFR (MDRD) Af Amer Est GFR (MDRD) Non-Af BUN/Creatinine Ratio Glucose Calcium Iron TIBC Iron Saturation Ferritin Total Bilirubin 0.60 Direct Bilirubin 0.14 AST 397 H ALT 74 H Alkaline Phosphatase 135 H Total Creatine Kinase Troponin I < 0.015 Total Protein 6.2 L Albumin 1.8 L Globulin 4.4 H Albumin/Globulin Ratio Cortisol POC Glucose 06/17/19 06/17/19 06/17/19 04:00 08:45 11:15 WBC RBC Hgb Hct MCV MCH MCHC RDW Std Deviation RDW Coeff of Radha Plt Count MPV Immature Gran % (Auto) Neut % (Auto) Lymph % (Auto) [place] % (Auto) Eos % (Auto) Baso % (Auto) Absolute Neuts (auto) Absolute Lymphs (auto) Nucleated RBC % Differential Comment Diff Path Review Platelet Estimate PT INR Sodium 135 L Potassium 4.5 Chloride 105 Carbon Dioxide 22.0 Anion Gap 8 BUN 66 H Creatinine 3.56 H Estim Creat Clear Calc 12.36 Est GFR (MDRD) Af Amer 17 L Est GFR (MDRD) Non-Af 14 L BUN/Creatinine Ratio 18.5 Glucose 152 H Calcium 7.4 L Iron TIBC Iron Saturation Ferritin Total Bilirubin Direct Bilirubin AST ALT Alkaline Phosphatase Total Creatine Kinase 6482 H Troponin I Total Protein Albumin Globulin Albumin/Globulin Ratio Cortisol 26.10 H 42.40 H POC Glucose 06/17/19 06/17/19 06/17/19 11:45 15:00 21:25 WBC RBC Hgb Hct MCV MCH MCHC RDW Std Deviation RDW Coeff of Radha Plt Count MPV Immature Gran % (Auto) Neut % (Auto) Lymph % (Auto) [place] % (Auto) Eos % (Auto) Baso % (Auto) Absolute Neuts (auto) Absolute Lymphs (auto) Nucleated RBC % Differential Comment Diff Path Review Platelet Estimate PT INR Sodium Potassium Chloride Carbon Dioxide Anion Gap BUN Creatinine Estim Creat Clear Calc Est GFR (MDRD) Af Amer Est GFR (MDRD) Non-Af BUN/Creatinine Ratio Glucose Calcium Iron TIBC Iron Saturation Ferritin Total Bilirubin Direct Bilirubin AST ALT Alkaline Phosphatase Total Creatine Kinase Troponin I Total Protein Albumin Globulin Albumin/Globulin Ratio Cortisol 50.90 H POC Glucose 228 H 286 H 06/17/19 06/17/19 06/18/19 Unknown Unknown 05:10 WBC 6.1 RBC 2.56 L Hgb 7.2 L Hct 22.7 L MCV 88.7 MCH 28.1 MCHC 31.7 L RDW Std Deviation 49.4 H RDW Coeff of Radha 15.5 H Plt Count 102 L MPV 10.1 Immature Gran % (Auto) 0.800 Neut % (Auto) 78.9 H Lymph % (Auto) 13.0 L [place] % (Auto) 7.0 Eos % (Auto) 0.3 Baso % (Auto) 0.0 Absolute Neuts (auto) 4.8 Absolute Lymphs (auto) 0.80 L Nucleated RBC % 0 Differential Comment Diff Path Review Platelet Estimate PT 24.5 H INR 2.2 Sodium Potassium Chloride Carbon Dioxide Anion Gap BUN Creatinine Estim Creat Clear Calc Est GFR (MDRD) Af Amer Est GFR (MDRD) Non-Af BUN/Creatinine Ratio Glucose Calcium Iron 19 L TIBC 127 L Iron Saturation 15.0 Ferritin 373 H Total Bilirubin Direct Bilirubin AST ALT Alkaline Phosphatase Total Creatine Kinase Troponin I Total Protein Albumin Globulin Albumin/Globulin Ratio Cortisol POC Glucose 06/18/19 05:10 WBC RBC Hgb Hct MCV MCH MCHC RDW Std Deviation RDW Coeff of Radha Plt Count MPV Immature Gran % (Auto) Neut % (Auto) Lymph % (Auto) [place] % (Auto) Eos % (Auto) Baso % (Auto) Absolute Neuts (auto) Absolute Lymphs (auto) Nucleated RBC % Differential Comment Diff Path Review Platelet Estimate PT INR Sodium 137 Potassium 4.0 Chloride 107 Carbon Dioxide 23.0 Anion Gap 7 BUN 70 H Creatinine 2.84 H Estim Creat Clear Calc 15.50 Est GFR (MDRD) Af Amer 22 L Est GFR (MDRD) Non-Af 18 L BUN/Creatinine Ratio 24.6 H Glucose 167 H Calcium 7.6 L Iron TIBC Iron Saturation Ferritin Total Bilirubin 0.40 Direct Bilirubin AST 167 H ALT 54 Alkaline Phosphatase 115 Total Creatine Kinase Troponin I Total Protein 5.4 L Albumin 1.5 L Globulin 3.9 Albumin/Globulin Ratio 0.4 L Cortisol POC Glucose Clinical Impression(s) from Imaging Studies Chest X-Ray 06/16/19 19:40 IMPRESSION: 1. No acute findings. 2. PICC line terminates in the SVC. Electronically Signed: Yadira Colvin MD at 20:29 EST Tel , Service support , Current Medications Acetaminophen (Tylenol) 650 mg PO Q6H PRN PRN PRN Reason: Pain Score 1-10/10 Last Admin: 06/17/19 12:40 Dose: 650 mg Documented by: Apixaban (Eliquis) 5 mg PO BID [facility] Last Admin: 06/17/19 21:28 Dose: 5 mg Documented by: Calamine/Phenol (Calmoseptine Ointment) 1 applic TOPICAL BID [facility]; Protocol Last Admin: 06/17/19 21:20 Dose: 1 applicatio Documented by: Citalopram Hydrobromide (Celexa) 20 mg PO DAILY [facility] Last Admin: 06/17/19 10:38 Dose: 20 mg Documented by: Glucagon () 1 mg IM .X1 PRN PRN Reason: Hypoglycemia Sodium Chloride () 250 mls @ 15 mls/hr IV .[id number] PRN PRN Reason: Saline Flush Last Infusion: 06/16/19 05:30 Dose: 0 mls/hr Documented by: Sodium Chloride () 250 mls @ 15 mls/hr IV .[id number] PRN PRN Reason: Additional IVPB Infusion Lactated Ringer's () 1,000 mls @ 150 mls/hr IV .Q6H40M [facility] Last Admin: 06/18/19 04:08 Dose: 150 mls/hr Documented by: Dextrose (Dextrose 10%-Water) 250 mls @ 999 mls/hr IV .Q16M PRN; Protocol PRN Reason: HYPOGLYCEMIA Insulin Human Lispro (Humalog Kwikpen (Bkc)) 0 unit SC ACHS [facility]; Protocol Last Admin: 06/17/19 21:26 Dose: 2 u Documented by: Nutritional Formula (Bernard - [place] Flavor) [facility] Last Admin: 06/17/19 17:53 Dose: 1 packet Documented by: Nystatin (Mycostatin Powder) 1 applic TOPICAL BID [facility]; Protocol Last Admin: 06/17/19 21:19 Dose: 1 applicatio Documented by: Ondansetron HCl (Zofran) 4 mg IV Q8H PRN PRN PRN Reason: NAUSEA/VOMITING Sodium Chloride () 10 - 40 ml IV UD PRN PRN Reason: SALINE FLUSH Last Admin: 06/17/19 07:40 Dose: 10 ml Documented by: Medical Necessity - Tobacco Use Smoking Status: Never smoker Tobacco Use: Non-smoker Assessment/Plan All Active Problems (Last Reviewed 04/08/19 @ 08:50 by Emi Keene) Iron deficiency anemia (Acute) Skin necrosis (Acute) Pressure injury of right perineal ischial region, unstageable (Acute) Pressure injury of left perineal ischial region, unstageable (Acute) Septic shock (Acute) Acute renal failure (Acute) Hyperkalemia (Acute) Sepsis (Acute) Panniculitis (Acute) JH (acute kidney injury) (Acute) Hyperkalemia (Acute) Hyponatremia (Acute) ARF (acute renal failure) (Resolved) Acute cystitis (Resolved) Decubitus ulcer of left ischium, stage 4 (Resolved) Hyperkalemia (Resolved) Hypoglycemia associated with type 2 diabetes mellitus (Resolved) Open wound of umbilical region (Resolved) Pressure sore of left ischium, unstageable (Resolved) Rhabdomyolysis (Resolved) Right ischial pressure sore, stage 2 (Resolved) Right ischial pressure sore, stage 3 (Resolved) Skin necrosis (Resolved) RECOMMENDATIONS: 1. Continuous supplemental IV fluids can be discontinued from my perspective. 2. Encourage incentive spirometer use and mobilize patient as tolerated. 3. Continue empiric BiPAP therapy with naps and nightly. 4. Outpatient pulmonary follow-up within 2 weeks to complete a diagnostic polysomnogram. IMPRESSIONS: 1. Transient hypotension The patient initially presented to the intensive care unit in the setting of hypotension, which resolved with fluid resuscitation and repositioning of her blood pressure cuff. The patient remains hemodynamically stable. She never r equired any form of vasopressor support. Cosyntropin stimulation test did not reveal any evidence of adrenal insufficiency. 2. Acute kidney injury Likely prerenal in etiology. Nephrology is currently following to assist with management. 3. Suspected sleep disordered breathing The patient does have a history of audible snoring and witnessed apneic events. I would recommend an outpatient polysomnogram be completed with initiation of nocturnal Pap therapy, if clinically indicated. In the interim, empiric BiPAP will be utilized while admitted to the hospital. 4. Morbid obesity/hypertension/diabetes mellitus/GERD/depression/chronic pain syndrome/paroxysmal atrial fibrillation Complicates care, management, recovery and prognosis. Continue home medications as indicated. This note was generated with [employer] software. It may contain incorrect words, spelling, and punctuation that were not noted in checking the note before signing. Code Visit Inpatient E&M: 58028 Subs Hosp L2
[2019-06-18] MEDS: Insulin Lispro 100 UNIT/ML INSULN.PEN SC ×2 (06:47→21:15)
[2019-06-18 06:55] LABS: Bedside Glucose 206 mg/dL (70-110)
[2019-06-18 08:06] VITALS: O2SAT 97
[2019-06-18] MEDS: Nystatin Powder 15gm Bottle 1 APPLIC TOPICAL ×2 (09:09→21:16)
[2019-06-18 09:10] VITALS: BP 110/47; PULSE 82; RESP 16; TEMP 36.5; O2SAT 97
[2019-06-18] MEDS: Menthol/Lanolin/Calamine/Znox 113 GM Tube 1 APPLIC TOPICAL ×2 (09:10→21:15)
[2019-06-18] MEDS: APIXABAN 5 MG TABLET PO ×2 (09:13→21:15)
[2019-06-18] MEDS: Citalopram 20 MG Tablet PO (09:13)
--- NOTE | 2019-06-18 09:48 | PCM.PN.ID ---
Patient Problems: Active and Suspected Problems (Last Reviewed 04/08/19 @ 08:50 by Emi Keene) Acute renal failure (Acute) Hyponatremia (Acute) Subjective: Feeling fine, no fever, no abd pain. - Physical Exam Vitals/I&O's: Vital Signs Temp Pulse Resp BP Pulse Ox 98.2 F 79 18 117/59 L 97 06/18/19 04:01 06/18/19 04:01 06/18/19 04:01 06/18/19 04:01 06/18/19 08:06 Oxygen Delivery Method Room Air Weight: 289.5 kg Body Mass Index (BMI) 51.0 Finger Stick Blood Glucose 236 Intake and Output for Last 24 Hours 06/16/19 06/17/19 06/18/19 23:59 23:59 23:59 Intake Total 6362.50 / 6362.50 4323.5 / 4323.5 1415 / 1415 Output Total 610 / 610 1950 / 1950 Balance 5752.50 / 5752.50 2373.5 / 2373.5 1415 / 1415 General: Alert, Cooperative, No apparent distress Lungs: Clear to auscultation, Normal air movement Cardiovascular: Regular rate, Regular Rhythm Abdomen: Soft, Non Tender, Obese Skin: No rashes Microbiology Past 72 Hours 06/15/19 21:00 Blood Culture (Wb) - Port Blood Culture - Preliminary No growth in 48 hours. 06/16/19 16:05 Blood Culture (Wb) - Anticubital Left Blood Culture - Preliminary No growth in 48 hours. Laboratory Results 06/17/19 11:15: Cortisol 42.40 H 06/17/19 11:45: Cortisol 50.90 H 06/17/19 15:00: POC Glucose 228 H 06/17/19 21:25: POC Glucose 286 H 06/17/19 : PT 24.5 H, INR 2.2 06/17/19 : Iron 19 L, TIBC 127 L, Iron Saturation 15.0, Ferritin 373 H 06/18/19 05:10: WBC 6.1, RBC 2.56 L, Hgb 7.2 L, Hct 22.7 L, MCV 88.7, MCH 28.1, MCHC 31.7 L, RDW Std Deviation 49.4 H, RDW Coeff of Radha 15.5 H, Plt Count 102 L, MPV 10.1, Immature Gran % (Auto) 0.800, Neut % (Auto) 78.9 H, Lymph % (Auto) 13.0 L, [place] % (Auto) 7.0, Eos % (Auto) 0.3, Baso % (Auto) 0.0, Absolute Neuts (auto) 4.8, Absolute Lymphs (auto) 0.80 L, Nucleated RBC % 0 06/18/19 05:10: Sodium 137, Potassium 4.0, Chloride 107, Carbon Dioxide 23.0, Anion Gap 7, BUN 70 H, Creatinine 2.84 H, Estim Creat Clear Calc 15.50, Est GFR (MDRD) Af Amer 22 L, Est GFR (MDRD) Non-Af 18 L, BUN/Creatinine Ratio 24.6 H, Glucose 167 H, Calcium 7.6 L, Total Bilirubin 0.40, AST 167 H, ALT 54, Alkaline Phosphatase 115, Total Protein 5.4 L, Albumin 1.5 L, Globulin 3.9, Albumin/Globulin Ratio 0.4 L 06/18/19 06:46: POC Glucose 206 H Current Medications Acetaminophen (Tylenol) 650 mg PO Q6H PRN PRN PRN Reason: Pain Score 1-02/12 Last Admin: 06/17/19 12:40 Dose: 650 mg Documented by: Apixaban (Eliquis) 5 mg PO BID [facility] Last Admin: 06/18/19 09:13 Dose: 5 mg Documented by: Calamine/Phenol (Calmoseptine Ointment) 1 applic TOPICAL BID [facility]; Protocol Last Admin: 06/18/19 09:10 Dose: 1 applicatio Documented by: Citalopram Hydrobromide (Celexa) 20 mg PO DAILY [facility] Last Admin: 06/18/19 09:13 Dose: 20 mg Documented by: Glucagon () 1 mg IM .X1 PRN PRN Reason: Hypoglycemia Sodium Chloride () 250 mls @ 15 mls/hr IV .[id number] PRN PRN Reason: Saline Flush Last Infusion: 06/16/19 05:30 Dose: 0 mls/hr Documented by: Sodium Chloride () 250 mls @ 15 mls/hr IV .[id number] PRN PRN Reason: Additional IVPB Infusion Dextrose (Dextrose 10%-Water) 250 mls @ 999 mls/hr IV .Q16M PRN; Protocol PRN Reason: HYPOGLYCEMIA Insulin Human Lispro (Humalog Kwikpen (Bkc)) 0 unit SC ACHS [facility]; Protocol Last Admin: 06/18/19 06:47 Dose: 1 u Documented by: Nutritional Formula (Bernard - [place] Flavor) 1 packet [facility] Last Admin: 06/18/19 09:08 Dose: 1 packet Documented by: Nystatin (Mycostatin Powder) 1 applic TOPICAL BID [facility]; Protocol Last Admin: 06/18/19 09:09 Dose: 1 applicatio Documented by: Ondansetron HCl (Zofran) 4 mg IV Q8H PRN PRN PRN Reason: NAUSEA/VOMITING Sodium Chloride () 10 - 40 ml IV UD PRN PRN Reason: SALINE FLUSH Last Admin: 06/17/19 07:40 Dose: 10 ml Documented by: Medical Necessity - Tobacco Use Smoking Status: Never smoker Tobacco Use: Non-smoker Route of nutrition/ use of supplements: [] Nutritional Intake: [] IV Site: [] South Catheter: [] - Assessment/Plan Antibiotics: [] Assessment/Plan: [] Active and Suspected Problems (Last Reviewed 04/08/19 @ 08:50 by Emi Keene) Acute renal failure (Acute) Hyponatremia (Acute) Wbc now normal Presented with JH, lactic acidosis. Recent admit for panniculitis requiring discharge to [facility] on iv abx. Pannus appears to be doing relatively well. Low suspicion for new bacterial infection at this time given her history and exam. Stable off of abx. Will follow as needed.
--- NOTE | 2019-06-18 11:12 | CASEMGMT ---
Addendum entered by Farzana Contreras 06/18/19 14:16: Physician updated this worker that pt is now not medically cleared for discharge. SW placed a call to Keli at [facility] and updated her on this. Plan: [facility] when medically cleared JAKE Young Addendum entered by Farzana Contreras 06/18/19 13:08: SW received message from Keli at [facility] stating they are able to accept pt today. SW updated physician. SW in to update pt on acceptance to [facility]. SW informed pt that she is in her copays days but [facility] is able to assist her with applying for medicaid to help cover the copay. Pt states understanding. Plan: [facility] today skilled. Original Note: Social Work Note SW in to speak with pt to confirm discharge plans. SW introduced self and role at [facility]. Pt is alert and orientated x3. Pt states she prefers to go to [facility] at discharge and not back [facility]. SW explained referral process. Pt states understanding. SW reviewed notes, pt was at [facility] from 05/11/2019-06/12/2019 and is copay days. KINJAL placed a call to [facility] and provided referral to Keli. Per physician pt is medically cleared for discharge today. Plan: [facility] today pending acceptance JAKE Young
[2019-06-18] MEDS: 0.9% Saline Lock 10 ML Syringe IV (12:04)
[2019-06-18 12:10] LABS: Bedside Glucose 134 mg/dL (70-110)
--- NOTE | 2019-06-18 12:53 | NURSING ---
1025-pt assisted to ground at bedside with assistance from therapy. pt working with therapy at bedside at the time of incident. pt denies complaints. assisted onto transfer pad and back into bed. dressings replaced to pannis/buttocks. notified.
--- NOTE | 2019-06-18 14:03 | PCM.TXEXTCAR ---
- Diet 06/15/19 18:37 Diet: Cardiac/Low Cholesterol Food consistency:: Regular Liquid Consistency:: Regular/Thin - Routine Orders/Code Status Routine Lab Work: CBC - on 06/22/19, BMP - on 06/22/19 Code Status: Full Code - Wound(s) pannis Wound Type: Pressure Injury pannis in back Wound Type: Pressure Injury rt inner thingh Wound Type: Pressure Injury left thigh Wound Type: Pressure Injury medial pannus Wound Type: Pressure Injury Dressing Change: AntiMicrobial (Aquacel AG, etc) - daily - Therapies Weight Bearing: Full weight bearing Physical Therapy: Eval and Treat Occupational Therapy: Eval and Treat - Problem/Diagnosis (1) Acute renal failure Status: Acute Current Visit: Yes (2) Hyperkalemia Status: Acute Current Visit: No (3) Morbid obesity Status: Chronic Current Visit: No (4) Paroxysmal atrial fibrillation Status: Chronic Current Visit: No (5) Essential (primary) hypertension Status: Chronic Current Visit: No (6) group home (current) use of anticoagulants Status: Chronic Comment: Eliquis for atrial fibrillation Current Visit: No (7) Abdominal panniculus Status: Chronic Current Visit: No (8) Iron deficiency anemia Status: Acute Current Visit: Yes - Allergies/Procedures Done in Hospital Allergies/Adverse Reactions: Allergies amoxicillin Adverse Reaction (Verified 06/15/19 15:33) Other latex Adverse Reaction (Verified 06/15/19 15:33) Other Procedures: None - Type of Care/Length of Stay Estimated LOS: Convalescent Care Less Than 30 days Type of Care Needed: Skilled Rehab Potential: Good Prognosis: Good - Additional Orders/Day of Discharge Additional Orders: See Dr. Soledad Murray in two weeks (nephrology) H&P will serve as current which was dated: 06/15/19 Day of Discharge: 06/19/19 - Follow Up Care Primary Care Physician: Brittany Sorenson MD [Primary Care Provider] -
--- NOTE | 2019-06-18 14:18 | PN.RENAL_ITS ---
Patient Problems: Active and Suspected Problems (Last Reviewed 04/08/19 @ 08:50 by Emi Keene) Iron deficiency anemia (Acute) Acute renal failure (Acute) Hyponatremia (Acute) Subjective: denies SOB, appetite good. Renal function continues to improve. - Physical Exam Vitals/I&O's: Vital Signs Temp Pulse Resp BP Pulse Ox 97.7 F L 82 16 110/47 L 97 06/18/19 09:10 06/18/19 09:10 06/18/19 09:10 06/18/19 09:10 06/18/19 09:10 Oxygen Delivery Method Room Air Weight: 289.5 kg Body Mass Index (BMI) 51.0 Finger Stick Blood Glucose 236 Intake and Output for Last 24 Hours 06/16/19 06/17/19 06/18/19 23:59 23:59 23:59 Intake Total 6362.50 / 6362.50 4323.5 / 4323.5 1715 / 1715 Output Total 610 / 610 1950 / 1950 750 / 750 Balance 5752.50 / 5752.50 2373.5 / 2373.5 965 / 965 General: Alert, Oriented x3, Cooperative Lungs: Clear to auscultation Cardiovascular: Regular rate Abdomen: Bowel Sounds Present, Soft, Non Tender, Non-Distended, Obese Extremities: No edema Psych/Mental Status: Normal Affect, Appropriate, Alert and oriented to time, place, person, mood and affect Microbiology Past 72 Hours 06/15/19 21:00 Blood Culture (Wb) - Port Blood Culture - Preliminary No growth in 48 hours. 06/16/19 16:05 Blood Culture (Wb) - Anticubital Left Blood Culture - Preliminary No growth in 48 hours. Laboratory Results 06/17/19 15:00: POC Glucose 228 H 06/17/19 21:25: POC Glucose 286 H 06/18/19 05:10: WBC 6.1, RBC 2.56 L, Hgb 7.2 L, Hct 22.7 L, MCV 88.7, MCH 28.1, MCHC 31.7 L, RDW Std Deviation 49.4 H, RDW Coeff of Radha 15.5 H, Plt Count 102 L, MPV 10.1, Immature Gran % (Auto) 0.800, Neut % (Auto) 78.9 H, Lymph % (Auto) 13.0 L, [place] % (Auto) 7.0, Eos % (Auto) 0.3, Baso % (Auto) 0.0, Absolute Neuts (auto) 4.8, Absolute Lymphs (auto) 0.80 L, Nucleated RBC % 0 06/18/19 05:10: Sodium 137, Potassium 4.0, Chloride 107, Carbon Dioxide 23.0, Anion Gap 7, BUN 70 H, Creatinine 2.84 H, Estim Creat Clear Calc 15.50, Est GFR (MDRD) Af Amer 22 L, Est GFR (MDRD) Non-Af 18 L, BUN/Creatinine Ratio 24.6 H, Glucose 167 H, Calcium 7.6 L, Total Bilirubin 0.40, AST 167 H, ALT 54, Alkaline Phosphatase 115, Total Protein 5.4 L, Albumin 1.5 L, Globulin 3.9, Albumin/Globulin Ratio 0.4 L 06/18/19 06:46: POC Glucose 206 H 06/18/19 12:01: POC Glucose 134 H Current Medications Acetaminophen (Tylenol) 650 mg PO Q6H PRN PRN PRN Reason: Pain Score 1-1010 Last Admin: 06/17/19 12:40 Dose: 650 mg Documented by: Apixaban (Eliquis) 5 mg PO BID [facility] Last Admin: 06/18/19 09:13 Dose: 5 mg Documented by: Calamine/Phenol (Calmoseptine Ointment) 1 applic TOPICAL BID [facility]; Protocol Last Admin: 06/18/19 09:10 Dose: 1 applicatio Documented by: Citalopram Hydrobromide (Celexa) 20 mg PO DAILY [facility] Last Admin: 06/18/19 09:13 Dose: 20 mg Documented by: Glucagon () 1 mg IM .X1 PRN PRN Reason: Hypoglycemia Sodium Chloride () 250 mls @ 15 mls/hr IV .[id number] PRN PRN Reason: Saline Flush Last Infusion: 06/16/19 05:30 Dose: 0 mls/hr Documented by: Sodium Chloride () 250 mls @ 15 mls/hr IV .[id number] PRN PRN Reason: Additional IVPB Infusion Dextrose (Dextrose 10%-Water) 250 mls @ 999 mls/hr IV .Q16M PRN; Protocol PRN Reason: HYPOGLYCEMIA Insulin Human Lispro (Humalog Kwikpen (Bkc)) 0 unit SC [facility]; Protocol Last Admin: 06/18/19 12:05 Dose: Not Given Documented by: Nutritional Formula ([facility] - [place] [facility]) [facility] Last Admin: 06/18/19 09:08 Dose: 1 packet Documented by: Nystatin (Mycostatin Powder) 1 applic TOPICAL BID [facility]; Protocol Last Admin: 06/18/19 09:09 Dose: 1 applicatio Documented by: Ondansetron HCl (Zofran) 4 mg IV Q8H PRN PRN PRN Reason: NAUSEA/VOMITING Sodium Chloride () 10 - 40 ml IV UD PRN PRN Reason: SALINE FLUSH Last Admin: 06/18/19 12:04 Dose: 10 ml Documented by: Medical Necessity - Tobacco Use Smoking Status: Never smoker Tobacco Use: Non-smoker Assessment/Plan All Active Problems (Last Reviewed 04/08/19 @ 08:50 by Emi Keene) Iron deficiency anemia (Acute) Skin necrosis (Acute) Pressure injury of right perineal ischial region, unstageable (Acute) Pressure injury of left perineal ischial region, unstageable (Acute) Septic shock (Acute) Acute renal failure (Acute) Hyperkalemia (Acute) Sepsis (Acute) Panniculitis (Acute) JH (acute kidney injury) (Acute) Hyperkalemia (Acute) Hyponatremia (Acute) ARF (acute renal failure) (Resolved) Acute cystitis (Resolved) Decubitus ulcer of left ischium, stage 4 (Resolved) Hyperkalemia (Resolved) Hypoglycemia associated with type 2 diabetes mellitus (Resolved) Open wound of umbilical region (Resolved) Pressure sore of left ischium, unstageable (Resolved) Rhabdomyolysis (Resolved) Right ischial pressure sore, stage 2 (Resolved) Right ischial pressure sore, stage 3 (Resolved) Skin necrosis (Resolved) 1. JH due to prerenal event, hypotension, dehydration. Creatinine improving. Baseline creatinine 0.95 on discharge 05/15/19 from [facility] 2. Super morbid obesity with panniculitis 3. Hypotension/shock, leukocytosis improved, afebrile. blood cx no growth so far. BP stable 4. Debilitation/rhabdomyolysis. 5. Hyperkalemia resolved 6. Panniculitis off iv antibx. Leukocytosis improving 7. Iron def anemia received iv iron DW hospitalist
--- NOTE | 2019-06-18 15:04 | PN_ITS ---
Patient Problems: Active and Suspected Problems (Last Reviewed 04/08/19 @ 08:50 by Emi Keene) Iron deficiency anemia (Acute) Acute renal failure (Acute) Hyponatremia (Acute) Subjective: Patient seen and examined. No acute events overnight. Hemoglobin trending down, patient asymptomatic. SNF pending repeat CBC. - Physical Exam Vitals/I&O's: Vital Signs Temp Pulse Resp BP Pulse Ox 97.7 F L 82 16 110/47 L 97 06/18/19 09:10 06/18/19 09:10 06/18/19 09:10 06/18/19 09:10 06/18/19 09:10 Oxygen Delivery Method Room Air Weight: 638 lb 3.811 oz Body Mass Index (BMI) 51.0 Finger Stick Blood Glucose 236 Intake and Output for Last 24 Hours 06/16/19 06/17/19 06/18/19 23:59 23:59 23:59 Intake Total 6362.50 / 6362.50 4323.5 / 4323.5 1715 / 1715 Output Total 610 / 610 1950 / 1950 750 / 750 Balance 5752.50 / 5752.50 2373.5 / 2373.5 965 / 965 General: Alert, Oriented x3, Cooperative HEENT: Atraumatic, PERRLA, EOMI, Normocephalic Neck: Supple, No JVD, Negative Carotid Bruits Lungs: Clear to auscultation, Normal air movement Cardiovascular: Regular rate, Regular Rhythm, Normal S1, Normal S2, No murmurs Abdomen: Bowel Sounds Present, Soft, Non Tender Extremities: No clubbing, No cyanosis, No edema, Capillary Refill Less than 3 Seconds Skin: No rashes, No breakdown Musculoskeletal: No Tenderness to Palpation of Joints or Extremities Neurological: Cranial nerves II-XII grossly intact, Neuro grossly intact Psych/Mental Status: Normal Affect, Appropriate Microbiology Past 72 Hours 06/15/19 21:00 Blood Culture (Wb) - Port Blood Culture - Preliminary No growth in 48 hours. 06/16/19 16:05 Blood Culture (Wb) - Anticubital Left Blood Culture - Preliminary No growth in 48 hours. Laboratory Results 06/17/19 15:00: POC Glucose 228 H 06/17/19 21:25: POC Glucose 286 H 06/18/19 05:10: WBC 6.1, RBC 2.56 L, Hgb 7.2 L, Hct 22.7 L, MCV 88.7, MCH 28.1, MCHC 31.7 L, RDW Std Deviation 49.4 H, RDW Coeff of Radha 15.5 H, Plt Count 102 L, MPV 10.1, Immature Gran % (Auto) 0.800, Neut % (Auto) 78.9 H, Lymph % (Auto) 13.0 L, [place] % (Auto) 7.0, Eos % (Auto) 0.3, Baso % (Auto) 0.0, Absolute Neuts (auto) 4.8, Absolute Lymphs (auto) 0.80 L, Nucleated RBC % 0 06/18/19 05:10: Sodium 137, Potassium 4.0, Chloride 107, Carbon Dioxide 23.0, Anion Gap 7, BUN 70 H, Creatinine 2.84 H, Estim Creat Clear Calc 15.50, Est GFR (MDRD) Af Amer 22 L, Est GFR (MDRD) Non-Af 18 L, BUN/Creatinine Ratio 24.6 H, Glucose 167 H, Calcium 7.6 L, Total Bilirubin 0.40, AST 167 H, ALT 54, Alkaline Phosphatase 115, Total Protein 5.4 L, Albumin 1.5 L, Globulin 3.9, Albumin/Globulin Ratio 0.4 L 06/18/19 06:46: POC Glucose 206 H 06/18/19 12:01: POC Glucose 134 H Current Medications Acetaminophen (Tylenol) 650 mg PO Q6H PRN PRN PRN Reason: Pain Score 1-10/10 Last Admin: 06/17/19 12:40 Dose: 650 mg Documented by: Apixaban (Eliquis) 5 mg PO BID [facility] Last Admin: 06/18/19 09:13 Dose: 5 mg Documented by: Calamine/Phenol (Calmoseptine Ointment) 1 applic TOPICAL BID [facility]; Protocol Last Admin: 06/18/19 09:10 Dose: 1 applicatio Documented by: Citalopram Hydrobromide (Celexa) 20 mg PO DAILY [facility] Last Admin: 06/18/19 09:13 Dose: 20 mg Documented by: Glucagon () 1 mg IM .X1 PRN PRN Reason: Hypoglycemia Sodium Chloride () 250 mls @ 15 mls/hr IV .[id number] PRN PRN Reason: Saline Flush Last Infusion: 06/16/19 05:30 Dose: 0 mls/hr Documented by: Sodium Chloride () 250 mls @ 15 mls/hr IV .[id number] PRN PRN Reason: Additional IVPB Infusion Dextrose (Dextrose 10%-Water) 250 mls @ 999 mls/hr IV .Q16M PRN; Protocol PRN Reason: HYPOGLYCEMIA Iron Sucrose 200 mg/ Sodium (Chloride) 110 mls @ 220 mls/hr IV X1 ONE Stop: 06/19/19 09:29 Insulin Human Lispro (Humalog Kwikpen (Bkc)) 0 unit SC ACHS [facility]; Protocol Last Admin: 06/18/19 12:05 Dose: Not Given Documented by: Nutritional Formula (Bernard - [place] [facility]) [facility] Last Admin: 06/18/19 09:08 Dose: 1 packet Documented by: Nystatin (Mycostatin Powder) 1 applic TOPICAL BID [facility]; Protocol Last Admin: 06/18/19 09:09 Dose: 1 applicatio Documented by: Ondansetron HCl (Zofran) 4 mg IV Q8H PRN PRN PRN Reason: NAUSEA/VOMITING Sodium Chloride () 10 - 40 ml IV UD PRN PRN Reason: SALINE FLUSH Last Admin: 06/18/19 12:04 Dose: 10 ml Documented by: Medical Necessity - Tobacco Use Smoking Status: Never smoker Tobacco Use: Non-smoker Assessment/Plan All Active Problems (Last Reviewed 04/08/19 @ 08:50 by Emi Keene) Iron deficiency anemia (Acute) Skin necrosis (Acute) Pressure injury of right perineal ischial region, unstageable (Acute) Pressure injury of left perineal ischial region, unstageable (Acute) Septic shock (Acute) Acute renal failure (Acute) Hyperkalemia (Acute) Sepsis (Acute) Panniculitis (Acute) JH (acute kidney injury) (Acute) Hyperkalemia (Acute) Hyponatremia (Acute) ARF (acute renal failure) (Resolved) Acute cystitis (Resolved) Decubitus ulcer of left ischium, stage 4 (Resolved) Hyperkalemia (Resolved) Hypoglycemia associated with type 2 diabetes mellitus (Resolved) Open wound of umbilical region (Resolved) Pressure sore of left ischium, unstageable (Resolved) Rhabdomyolysis (Resolved) Right ischial pressure sore, stage 2 (Resolved) Right ischial pressure sore, stage 3 (Resolved) Skin necrosis (Resolved) 1. Acute kidney injury secondary to acute traumatic rhabdomyolysis as a result of sitting on toilet for 12+ hours-improving, nephrology following. Trend BMP. 2. Acute on chronic normocytic anemia/thrombocytopenia, iron deficiency anemia- IV Venofer x1. Repeat CBC. 3. Large abdominal panniculus with recent panniculitis-completed course of IV antibiotics. Dr. Valle consulted. No current infection. High risk for surgical intervention. Continue outpatient follow-up. Keep area clean and dry. Nystatin powder. 4. Paroxysmal atrial fibrillation-continue metoprolol, Eliquis. 5. Type 2 diabetes mellitus with associated diabetic [id number] before meals at bedtime with sliding scale insulin. 6. Hypertension-stable, continue metoprolol regimen. 7. Chronic back pain-PRN pain regimen, continue home Zanaflex regimen. 8. Depression-continue home citalopram regimen. 9. Morbid obesity-encourage diet and lifestyle modifications. Nutrition consult. 10. GERD-continue home famotidine regimen. DVT prophylaxis-Eliquis Discharge planning: SNF pending stable hemoglobin. This patient was seen by LEW Piña under the supervision of Dr. King.
[2019-06-18 15:05] VITALS: BP 98/55; PULSE 93; RESP 16; TEMP 36.8; O2SAT 98
[2019-06-18 17:20] LABS: Bedside Glucose 141 mg/dL (70-110)
[2019-06-18 21:05] VITALS: BP 115/53; PULSE 90; RESP 16; TEMP 36.4; O2SAT 97
[2019-06-18 21:25] LABS: Bedside Glucose 171 mg/dL (70-110)
--- NOTE | 2019-06-19 01:26 | CPS ---
pt refused BiPAP for tonight
[2019-06-19 03:05] VITALS: BP 99/53; PULSE 79; RESP 16; TEMP 36.6; O2SAT 98
[2019-06-19 05:35] LABS: Hematocrit 24.9 % (37-47); Hemoglobin 8.2 g/dL (12.0-15.0)
[2019-06-19 06:17] LABS: Anion Gap 6 (5-15); BUN 62 mg/dL (7-18); BUN/Creat Ratio 31.5 RATIO (10-20); Calcium,Total 8.1 mg/dL (8.5-10.1); Chloride 110 mmol/L (98-107); Creatinine, Serum 1.97 mg/dL (0.55-1.02); EST Glomerular Filtration Rate 27 mL/min (>60); Est Glom Filt Rate - Afr Amer 33 mL/min (>60); Estimated Creatinine Clearance 22.34 ml/min; Glucose 107 mg/dL (74-106); Potassium 4.2 mmol/L (3.5-5.1); Sodium Level 141 mmol/L (136-145)
[2019-06-19 06:35] LABS: Bedside Glucose 119 mg/dL (70-110)
--- NOTE | 2019-06-19 07:42 | PCM.PN.PUL ---
Subjective: The patient was seen and examined at the bedside this morning. Events from the last 24 hours have been reviewed. The patient is currently afebrile, hemodynamically stable and maintaining appropriate oxygen saturations on room air. Hemoglobin is stable this morning at 8.2 g/dL. Renal function continues to improve. The patient refused BiPAP overnight. Objective: The patient's most recent lab work, culture data and imaging studies have all been personally reviewed. - Physical Exam Vitals/I&O's: Vital Signs Temp Pulse Resp BP Pulse Ox 97.9 F 79 16 99/53 L 98 06/19/19 03:05 06/19/19 03:05 06/19/19 03:05 06/19/19 03:05 06/19/19 03:05 Oxygen Delivery Method Room Air Weight: 293 lb 10.491 oz Body Mass Index (BMI) 51.0 Finger Stick Blood Glucose 236 Intake and Output for Last 24 Hours 06/17/19 06/18/19 06/19/19 23:59 23:59 23:59 Intake Total 4323.5 / 4323.5 2225 / 2575 650 / 650 Output Total 1950 / 1950 1400 / 2250 1850 / 1850 Balance 2373.5 / 2373.5 825 / 325 -1200 / -1200 General: Alert, Cooperative, No apparent distress HEENT: Atraumatic, Normocephalic Oral: No Gingival or Mucosal Lesions/ Ulcerations Neck: Supple, No Nodes, Trachea Midline Lungs: No rhonchi, No wheeze, No rales, Diminished Cardiovascular: Regular rate, Regular Rhythm, Normal S1, Normal S2 Abdomen: Bowel Sounds Present, Soft, Non Tender, Obese Extremities: No clubbing, No cyanosis, Edema Skin: - - No change from previous Musculoskeletal: No Tenderness to Palpation of Joints or Extremities, No Muscle Wasting Lymphatic: No Cervical, Supraclavicular, or Inguinal Adenopathy Neurological: Neuro grossly intact Psych/Mental Status: Normal Affect, Appropriate Labs (Last 48 Hours) 06/17/19 06/17/19 06/17/19 08:45 11:15 11:45 WBC RBC Hgb Hct MCV MCH MCHC RDW Std Deviation RDW Coeff of Radha Plt Count MPV Immature Gran % (Auto) Neut % (Auto) Lymph % (Auto) [place] % (Auto) Eos % (Auto) Baso % (Auto) Absolute Neuts (auto) Absolute Lymphs (auto) Nucleated RBC % PT INR Sodium Potassium Chloride Carbon Dioxide Anion Gap BUN Creatinine Estim Creat Clear Calc Est GFR (MDRD) Af Amer Est GFR (MDRD) Non-Af BUN/Creatinine Ratio Glucose Calcium Iron TIBC Iron Saturation Ferritin Total Bilirubin AST ALT Alkaline Phosphatase Total Protein Albumin Globulin Albumin/Globulin Ratio Cortisol 26.10 H 42.40 H 50.90 H POC Glucose 06/17/19 06/17/19 06/17/19 15:00 21:25 Unknown WBC RBC Hgb Hct MCV MCH MCHC RDW Std Deviation RDW Coeff of Radha Plt Count MPV Immature Gran % (Auto) Neut % (Auto) Lymph % (Auto) [place] % (Auto) Eos % (Auto) Baso % (Auto) Absolute Neuts (auto) Absolute Lymphs (auto) Nucleated RBC % PT 24.5 H INR 2.2 Sodium Potassium Chloride Carbon Dioxide Anion Gap BUN Creatinine Estim Creat Clear Calc Est GFR (MDRD) Af Amer Est GFR (MDRD) Non-Af BUN/Creatinine Ratio Glucose Calcium Iron TIBC Iron Saturation Ferritin Total Bilirubin AST ALT Alkaline Phosphatase Total Protein Albumin Globulin Albumin/Globulin Ratio Cortisol POC Glucose 228 H 286 H 06/17/19 06/18/19 06/18/19 Unknown 05:10 05:10 WBC 6.1 RBC 2.56 L Hgb 7.2 L Hct 22.7 L MCV 88.7 MCH 28.1 MCHC 31.7 L RDW Std Deviation 49.4 H RDW Coeff of Radha 15.5 H Plt Count 102 L MPV 10.1 Immature Gran % (Auto) 0.800 Neut % (Auto) 78.9 H Lymph % (Auto) 13.0 L [place] % (Auto) 7.0 Eos % (Auto) 0.3 Baso % (Auto) 0.0 Absolute Neuts (auto) 4.8 Absolute Lymphs (auto) 0.80 L Nucleated RBC % 0 PT INR Sodium 137 Potassium 4.0 Chloride 107 Carbon Dioxide 23.0 Anion Gap 7 BUN 70 H Creatinine 2.84 H Estim Creat Clear Calc 15.50 Est GFR (MDRD) Af Amer 22 L Est GFR (MDRD) Non-Af 18 L BUN/Creatinine Ratio 24.6 H Glucose 167 H Calcium 7.6 L Iron 19 L TIBC 127 L Iron Saturation 15.0 Ferritin 373 H Total Bilirubin 0.40 AST 167 H ALT 54 Alkaline Phosphatase 115 Total Protein 5.4 L Albumin 1.5 L Globulin 3.9 Albumin/Globulin Ratio 0.4 L Cortisol POC Glucose 06/18/19 06/18/19 06/18/19 06:46 12:01 17:10 WBC RBC Hgb Hct MCV MCH MCHC RDW Std Deviation RDW Coeff of Radha Plt Count MPV Immature Gran % (Auto) Neut % (Auto) Lymph % (Auto) [place] % (Auto) Eos % (Auto) Baso % (Auto) Absolute Neuts (auto) Absolute Lymphs (auto) Nucleated RBC % PT INR Sodium Potassium Chloride Carbon Dioxide Anion Gap BUN Creatinine Estim Creat Clear Calc Est GFR (MDRD) Af Amer Est GFR (MDRD) Non-Af BUN/Creatinine Ratio Glucose Calcium Iron TIBC Iron Saturation Ferritin Total Bilirubin AST ALT Alkaline Phosphatase Total Protein Albumin Globulin Albumin/Globulin Ratio Cortisol POC Glucose 206 H 134 H 141 H 06/18/19 06/19/19 06/19/19 21:08 05:15 05:15 WBC RBC Hgb 8.2 L Hct 24.9 L MCV MCH MCHC RDW Std Deviation RDW Coeff of Radha Plt Count MPV Immature Gran % (Auto) Neut % (Auto) Lymph % (Auto) [place] % (Auto) Eos % (Auto) Baso % (Auto) Absolute Neuts (auto) Absolute Lymphs (auto) Nucleated RBC % PT INR Sodium 141 Potassium 4.2 Chloride 110 H Carbon Dioxide 25.0 Anion Gap 6 BUN 62 H Creatinine 1.97 H Estim Creat Clear Calc 22.34 Est GFR (MDRD) Af Amer 33 L Est GFR (MDRD) Non-Af 27 L BUN/Creatinine Ratio 31.5 H Glucose 107 H Calcium 8.1 L Iron TIBC Iron Saturation Ferritin Total Bilirubin AST ALT Alkaline Phosphatase Total Protein Albumin Globulin Albumin/Globulin Ratio Cortisol POC Glucose 171 H 06/19/19 06:32 WBC RBC Hgb Hct MCV MCH MCHC RDW Std Deviation RDW Coeff of Radha Plt Count MPV Immature Gran % (Auto) Neut % (Auto) Lymph % (Auto) [place] % (Auto) Eos % (Auto) Baso % (Auto) Absolute Neuts (auto) Absolute Lymphs (auto) Nucleated RBC % PT INR Sodium Potassium Chloride Carbon Dioxide Anion Gap BUN Creatinine Estim Creat Clear Calc Est GFR (MDRD) Af Amer Est GFR (MDRD) Non-Af BUN/Creatinine Ratio Glucose Calcium Iron TIBC Iron Saturation Ferritin Total Bilirubin AST ALT Alkaline Phosphatase Total Protein Albumin Globulin Albumin/Globulin Ratio Cortisol POC Glucose 119 H Microbiology 06/15/19 21:00 Blood Culture (Wb) - Port Blood Culture - Preliminary No growth in 48 hours. 06/16/19 16:05 Blood Culture (Wb) - Anticubital Left Blood Culture - Preliminary No growth in 48 hours. Clinical Impression(s) from Imaging Studies Chest X-Ray 06/16/19 19:40 IMPRESSION: 1. No acute findings. 2. PICC line terminates in the SVC. Electronically Signed: Yadira Colvin MD at 20:29 EST Tel , Service support , Current Medications Acetaminophen (Tylenol) 650 mg PO Q6H PRN PRN PRN Reason: Pain Score 1-10 Last Admin: 06/17/19 12:40 Dose: 650 mg Documented by: Apixaban (Eliquis) 5 mg PO BID [facility] Last Admin: 06/18/19 21:15 Dose: 5 mg Documented by: Calamine/Phenol (Calmoseptine Ointment) 1 applic TOPICAL BID [facility]; Protocol Last Admin: 06/18/19 21:15 Dose: 1 applicatio Documented by: Citalopram Hydrobromide (Celexa) 20 mg PO DAILY [facility] Last Admin: 06/18/19 09:13 Dose: 20 mg Documented by: Glucagon () 1 mg IM .X1 PRN PRN Reason: Hypoglycemia Sodium Chloride () 250 mls @ 15 mls/hr IV .[id number] PRN PRN Reason: Saline Flush Last Infusion: 06/16/19 05:30 Dose: 0 mls/hr Documented by: Sodium Chloride () 250 mls @ 15 mls/hr IV .[id number] PRN PRN Reason: Additional IVPB Infusion Dextrose (Dextrose 10%-Water) 250 mls @ 999 mls/hr IV .Q16M PRN; Protocol PRN Reason: HYPOGLYCEMIA Iron Sucrose 200 mg/ Sodium (Chloride) 110 mls @ 220 mls/hr IV X1 ONE Stop: 06/19/19 09:29 Insulin Human Lispro (Humalog Kwikpen (Bkc)) 0 unit SC ACHS [facility]; Protocol Last Admin: 06/19/19 06:42 Dose: Not Given Documented by: Nutritional Formula (Bernard - [place] Flavor) 1 packet PO BIDCM [facility] Last Admin: 06/18/19 17:14 Dose: 1 packet Documented by: Nystatin (Mycostatin Powder) 1 applic TOPICAL BID [facility]; Protocol Last Admin: 06/18/19 21:16 Dose: 1 applicatio Documented by: Ondansetron HCl (Zofran) 4 mg IV Q8H PRN PRN PRN Reason: NAUSEA/VOMITING Sodium Chloride () 10 - 40 ml IV UD PRN PRN Reason: SALINE FLUSH Last Admin: 06/18/19 12:04 Dose: 10 ml Documented by: Medical Necessity - Tobacco Use Smoking Status: Never smoker Tobacco Use: Non-smoker Assessment/Plan All Active Problems (Last Reviewed 04/08/19 @ 08:50 by Emi Keene) Iron deficiency anemia (Acute) Skin necrosis (Acute) Pressure injury of right perineal ischial region, unstageable (Acute) Pressure injury of left perineal ischial region, unstageable (Acute) Septic shock (Acute) Acute renal failure (Acute) Hyperkalemia (Acute) Sepsis (Acute) Panniculitis (Acute) JH (acute kidney injury) (Acute) Hyperkalemia (Acute) Hyponatremia (Acute) ARF (acute renal failure) (Resolved) Acute cystitis (Resolved) Decubitus ulcer of left ischium, stage 4 (Resolved) Hyperkalemia (Resolved) Hypoglycemia associated with type 2 diabetes mellitus (Resolved) Open wound of umbilical region (Resolved) Pressure sore of left ischium, unstageable (Resolved) Rhabdomyolysis (Resolved) Right ischial pressure sore, stage 2 (Resolved) Right ischial pressure sore, stage 3 (Resolved) Skin necrosis (Resolved) RECOMMENDATIONS: 1. Encourage incentive spirometer use and mobilize patient as tolerated. 2. Continue empiric BiPAP therapy with naps and nightly. 3. Outpatient pulmonary follow-up within 2 weeks to complete a diagnostic polysomnogram. 4. There is no indication for transfusion of blood products. IMPRESSIONS: 1. Transient hypotension The patient initially presented to the intensive care unit in the setting of hypotension, which resolved with fluid resuscitation and repositioning of her blood pressure cuff. The patient remains hemodynamically stable. She never required any form of vasopressor support. Cosyntropin stimulation test did not reveal any evidence of adrenal insufficiency. 2. Acute kidney injury Improving. Likely prerenal in etiology. Nephrology is currently following to assist with management. 3. Suspected sleep disordered breathing The patient does have a history of audible snoring and witnessed apneic events. I would recommend an outpatient polysomnogram be completed with initiation of nocturnal Pap therapy, if clinically indicated. In the interim, empiric BiPAP will be utilized while admitted to the hospital. 4. Morbid obesity/hypertension/diabetes mellitus/GERD/depression/chronic pain syndrome/paroxysmal atrial fibrillation Complicates care, management, recovery and prognosis. Continue home medications as indicated. This note was generated with amaysim dictation software. It may contain incorrect words, spelling, and punctuation that were not noted in checking the note before signing. Code Visit Inpatient E&M: 21415 Subs Hosp L2
--- NOTE | 2019-06-19 09:29 | DS.PCM_ITS ---
Discharge Date and Diagnosis Date of Admission: 06/15/19 Date of Discharge: 06/19/19 - Primary Discharge Diagnosis Active and Suspected Problems (Last Reviewed 04/08/19 @ 08:50 by Emi Keene) 1. Acute kidney injury secondary to acute traumatic rhabdomyolysis as a result of sitting on toilet for 12+ hours 2. Acute on chronic normocytic anemia/thrombocytopenia, iron deficiency anemia 3. Large abdominal panniculus with recent panniculitis 4. Paroxysmal atrial fibrillation 5. Type 2 diabetes mellitus with associated diabetic polyneuropathy 6. Hypertension 7. Chronic back pain 8. Depression 9. Morbid obesity 10. 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 No acute findings. 2. PICC line terminates in the SVC. Electronically Signed: Yadira Colvin MD at 20:29 EST Tel , Service support , Consultations 06/16/19 07:24 Consult: Onc/Wound/photogrammetric tech Routine Comment: Dr. Aguiar- ID Dr. Murray- nephrology Dr. Valle- plastic surgery Dr. Canchola- concrete polisher/pulmonary Operations: None Procedures: None Summary of Care Provided: The patient is a 64 year old F admitted to 06/15/2019 due to weakness. 1. Acute kidney injury secondary to acute traumatic rhabdomyolysis as a result of sitting on toilet for 12+ hours-improving, nephrology following. Continue outpatient follow-up with nephrology, Dr. Murray in 2 weeks. 2. Acute on chronic normocytic anemia/thrombocytopenia, iron deficiency anemia- IV Venofer x2. Oral iron at discharge. Repeat CBC at [facility]. 3. Large abdominal panniculus with recent panniculitis-completed course of IV a ntibiotics. Dr. Valle consulted. No current infection. High risk for surgical intervention. Continue outpatient follow-up. Keep area clean and dry. Nystatin powder. 4. Paroxysmal atrial fibrillation-continue metoprolol, Eliquis. 5. Type 2 diabetes mellitus with associated diabetic [id number] before meals at bedtime with sliding scale insulin. 6. Hypertension-stable, continue metoprolol regimen. 7. Chronic back pain-PRN pain regimen, continue home Zanaflex regimen. 8. Depression-continue home citalopram regimen. 9. Morbid obesity-encourage diet and lifestyle modifications. Nutrition consult. 10. GERD-continue home famotidine regimen. General: Alert, Oriented x3, Cooperative HEENT: Atraumatic, PERRLA, EOMI, Normocephalic Neck: Supple, No JVD, Negative Carotid Bruits Lungs: Clear to auscultation, Normal air movement Cardiovascular: Regular rate, Regular Rhythm, Normal S1, Normal S2, No murmurs Abdomen: Bowel Sounds Present, Soft, Non Tender Extremities: No clubbing, No cyanosis, No edema, Capillary Refill Less than 3 Seconds Skin: No rashes, No breakdown Musculoskeletal: No Tenderness to Palpation of Joints or Extremities Neurological: Cranial nerves II-XII grossly intact, Neuro grossly intact Psych/Mental Status: Normal Affect, Appropriate Patient seen and examined prior to discharge. Physical assessment as noted above. Patient is stable for discharge with follow up recommendations as noted above. This patient was seen by LEW Piña under the supervision of Dr. King. - Physical Exam Vitals/I&O's: Vital Signs Temp Pulse Resp BP Pulse Ox 97.9 F 79 16 99/53 L 98 06/19/19 03:05 06/19/19 03:05 06/19/19 03:05 06/19/19 03:05 06/19/19 03:05 Oxygen Delivery Method Room Air Weight: 293 lb 10.491 oz Body Mass Index (BMI) 51.0 Finger Stick Blood Glucose 236 Intake and Output for Last 24 Hours 06/17/19 06/18/19 06/19/19 23:59 23:59 23:59 Intake Total 4323.5 / 4323.5 2225 / 2575 650 / 650 Output Total 1949 / 1949 1400 / 2250 1850 / 1850 Balance 2373.5 / 2373.5 825 / 325 -1200 / -1200 Microbiology Past 72 Hours 06/15/19 21:00 Blood Culture (Wb) - Port Blood Culture - Preliminary No growth in 48 hours. 06/16/19 16:05 Blood Culture (Wb) - Anticubital Left Blood Culture - Preliminary No growth in 48 hours. Laboratory Results 06/18/19 12:01: POC Glucose 134 H 06/18/19 17:10: POC Glucose 141 H 06/18/19 21:08: POC Glucose 171 H 06/19/19 05:15: Hgb 8.2 L, Hct 24.9 L 06/19/19 05:15: Sodium 141, Potassium 4.2, Chloride 110 H, Carbon Dioxide 25.0, Anion Gap 6, BUN 62 H, Creatinine 1.97 H, Estim Creat Clear Calc 22.34, Est GFR (MDRD) Af Amer 33 L, Est GFR (MDRD) Non-Af 27 L, BUN/Creatinine Ratio 31.5 H, Glucose 107 H, Calcium 8.1 L 06/19/19 06:32: POC Glucose 119 H Current Medications Acetaminophen (Tylenol) 650 mg PO Q6H PRN PRN PRN Reason: Pain Score 1-10/10 Last Admin: 06/17/19 12:40 Dose: 650 mg Documented by: Apixaban (Eliquis) 5 mg PO BID [facility] Last Admin: 06/18/19 21:15 Dose: 5 mg Documented by: Calamine/Phenol (Calmoseptine Ointment) 1 applic TOPICAL BID [facility]; Protocol Last Admin: 06/18/19 21:15 Dose: 1 applicatio Documented by: Citalopram Hydrobromide (Celexa) 20 mg PO DAILY [facility] Last Admin: 06/18/19 09:13 Dose: 20 mg Documented by: Glucagon () 1 mg IM .X1 PRN PRN Reason: Hypoglycemia Sodium Chloride () 250 mls @ 15 mls/hr IV .[id number] PRN PRN Reason: Saline Flush Last Infusion: 06/16/19 05:30 Dose: 0 mls/hr Documented by: Sodium Chloride () 250 mls @ 15 mls/hr IV .[id number] PRN PRN Reason: Additional IVPB Infusion Dextrose (Dextrose 10%-Water) 250 mls @ 999 mls/hr IV .Q16M PRN; Protocol PRN Reason: HYPOGLYCEMIA Insulin Human Lispro (Humalog Kwikpen (Bkc)) 0 unit SC ACHS [facility]; Protocol Last Admin: 06/19/19 06:42 Dose: Not Given Documented by: Nutritional Formula (Bernard - [place] Flavor) 1 packet PO BIDCM [facility] Last Admin: 06/18/19 17:14 Dose: 1 packet Documented by: Nystatin (Mycostatin Powder) 1 applic TOPICAL BID [facility]; Protocol Last Admin: 06/18/19 21:16 Dose: 1 applicatio Documented by: Ondansetron HCl (Zofran) 4 mg IV Q8H PRN PRN PRN Reason: NAUSEA/VOMITING Sodium Chloride () 10 - 40 ml IV UD PRN PRN Reason: SALINE FLUSH Last Admin: 06/18/19 12:04 Dose: 10 ml Documented by: Home Medications: Medications to take at Discharge Citalopram [Celexa] 20 mg PO DAILY 07/10/16 Apixaban [Eliquis] 5 mg PO BID tab 12/24/17 Acetaminophen [Tylenol Tablet] 650 mg PO Q6H PRN PRN tab 06/18/19 Menthol/Lanolin/Calamine/Znox [Calmoseptine Ointment] 1 applic TOPICAL BID tube 06/18/19 Metoprolol Tartrate 25 mg PO BID #1 tab 06/18/19 Nutritional Supplement [Bernard - ORANGE FLAVOR] 1 packet PO BIDCM packet 06/18/19 Nystatin Powder [Mycostatin Powder] 1 applic TOPICAL BID bottle 06/18/19 Tizanidine HCl 4 mg PO 4X/DAY PRN PRN #1 tab 06/18/19 Ferrous Sulfate 325 mg PO BIDCM #1 tab 06/19/19 Following Prescrptions Were Given to Patient: Ferrous Sulfate 325 mg PO BIDCM #1 tab Metoprolol Tartrate 25 mg PO BID #1 tab Tizanidine HCl 4 mg PO 4X/DAY PRN PRN #1 tab PRN Reason: Muscle Spasm Primary Care Physician: Brittany Sorenson MD [Primary Care Provider] - Please follow up with your Primary Care Physician in: 1 Week Please Follow Up With: Soledad Murray DO When: 2 Weeks Disposition: Correction facility Minutes spent on discharge:: 35 Patient Condition:: Stable Medical Necessity - Tobacco Use Smoking Status: Never smoker Tobacco Use: Non-smoker Meaningful Use Info Meaningful Use Diagnoses (Choose all that apply): None applicable
[2019-06-19] MEDS: Menthol/Lanolin/Calamine/Znox 113 GM Tube 1 APPLIC TOPICAL (09:44)
[2019-06-19] MEDS: Nystatin Powder 15gm Bottle 1 APPLIC TOPICAL (09:45)
[2019-06-19] MEDS: APIXABAN 5 MG TABLET PO (09:49)
[2019-06-19] MEDS: Citalopram 20 MG Tablet PO (09:49)
[2019-06-19 09:54] VITALS: BP 135/62; PULSE 69; RESP 16; TEMP 36.7; O2SAT 100
--- NOTE | 2019-06-19 10:33 | CASEMGMT ---
Social Work Note Pt is discharging to [facility] today skilled. KINJAL faxed completed discharge paperwork to [facility] including transfer to extended care facility, signed medication list and any scripts. Original in SNF folder and copy on pt's chart. KINJAL completed [facility] in [facility]. Original in SNF folder and copy on pt's chart. KINJAL spoke with RN who states pt is able to transport via cot. KINJAL called [facility] and arranged transportation via cot for 12:00pm. Transportation form completed and placed on SNF folder and copy on pt's chart. KINJAL updated RN who will update pt. KINJAL placed a call to Keli at [facility] and left message regarding discharge and transportation time. Plan: [facility] today skilled with [facility] transporting via cot at 12:00pm Farzana Contreras MSW, MOTOR TEACHER
[2019-06-19 11:25] LABS: Bedside Glucose 130 mg/dL (70-110)
== END 2019-06-19 12:20 | DRG 565 ==
LOC: ED 17:28 → PCU 17:47 → ICU 06-16 18:10 → MS3 06-18 09:35
PROVIDERS: Internal Medicine Critical Care Medicine; Physician Assistant; Admitting Provider Student in an Organized Health Care Education/Training Program; Emergency Provider Emergency Medicine; PCP Internal Medicine; Visit Provider Internal Medicine
DX: T79.6XXA Traumatic ischemia of muscle, initial encounter (principal); N17.9 Acute kidney failure, unspecified; E87.1 Hypo-osmolality and hyponatremia; Z68.43 Body mass index [BMI] 50.0-59.9, adult; E87.5 Hyperkalemia; I10 Essential (primary) hypertension; E66.01 Morbid (severe) obesity due to excess calories; X50.1XXA Overexertion from prolonged static or awkward postures, initial encounter; E65 Localized adiposity; I95.9 Hypotension, unspecified; I48.0 Paroxysmal atrial fibrillation; M54.9 Dorsalgia, unspecified; F32.9 Major depressive disorder, single episode, unspecified; D69.6 Thrombocytopenia, unspecified; D50.9 Iron deficiency anemia, unspecified; E11.42 Type 2 diabetes mellitus with diabetic polyneuropathy; K21.9 Gastro-esophageal reflux disease without esophagitis; G89.4 Chronic pain syndrome; E86.0 Dehydration; L30.4 Erythema intertrigo; E78.5 Hyperlipidemia, unspecified; Z79.899 Other long term (current) drug therapy; Z79.01 Long term (current) use of anticoagulants; G47.30 Sleep apnea, unspecified
CPT/HCPCS: 36415; 36569; 71045; 80048; 80053; 80076; 81001; 82533; 82550; 82570; 82728; 82962; 83540; 83550; 83605; 84300; 84484; 85014; 85018; 85025; 85610; 87040; 93005; 94002; 97110; 97163; 97167; 97530; 97802; 97803; 99285; J1756; J7030; J7040; J7050; J7120; A4216; J0834; J3490

== ENCOUNTER 2019-06-21 08:37 | Emergency (ER) | payer MEDICARE, MEDICAID, SELFPAY ==
[2019-06-15 18:24] VITALS: BMI 51.0
[2019-06-21 08:39] VITALS: BP 109/96; PULSE 86; RESP 18; TEMP 36.8; O2SAT 100; BMI 55.5
--- NOTE | 2019-06-21 09:02 | RAD_ITS ---
STUDY: X-RAY CHEST REASON FOR EXAM: Female, 64 years old. C/O VOMITING,CHILLS,FEVER AND INCREASED ODOR FROM PANNUS WOUNDS THAT STARTED YESTERDAY. TECHNIQUE: Single AP portable view of the chest. COMPARISON: June 16, 2019 FINDINGS: PICC on the right extends to the superior vena cava. There are monitoring devices. The lungs are clear and expanded. There is no demonstrated pleural abnormality. Normal size heart. Normal mediastinum and ian. Normal visualized pulmonary arteries. Normal visualized aortic arch and descending thoracic aorta. Normal visualized thoracic spine. There is degenerative osteoarthritis of the bilateral shoulders. There is no demonstrated abnormality of the visualized soft tissue structures of the upper abdomen. RAD/Chest 1 View (Portable) IMPRESSION: Degenerative changes, as described above. No demonstrated acute cardiopulmonary process. Electronically Signed: Jordan Pierre MD at 9:43 EST , Service support ,
[2019-06-21 09:13] LABS: Absolute Lymphocyte Count 1.29 X10^3/uL (0.83-4.51); Absolute Neutrophil Count 7.8 X10^3/uL (2.0-7.7); Basophil# 0.03 X10^3/uL; Basophil% 0.3 % (0-1); Eosinophil# 0.07 X10^3/uL; Eosinophils% 0.7 % (0-5); Hematocrit 27.8 % (37-47); Hemoglobin 8.9 g/dL (12.0-15.0); Lymphocyte # 1.29 X10^3/ul (4.0); Lymphocyte % 12.8 % (19-41); Mean Corpuscular Hgb 28.4 pg (27.0-32.0); Mean Corpuscular Volume 88.8 fL (81-99); Mean Platelet Vol. 9.7 fl (6.2-12.0); Monocyte# 0.61 X10^3/uL; Monocyte% 6.1 % (0-10); NRBC Flagged by Analyzer 0.2 % (0-5); Neutrophil # 7.79 X10^3/uL (2.7-7.7); Neutrophil % 77.3 % (47-70); Platelet Count 156 K/mm3 (150-450); RBC Distribution Width CV 16.2 % (11.6-14.6); RBC Distribution Width SD 49.9 fl (35.1-43.9); Red Blood Count 3.13 M/mm3 (4.2-5.4); White Blood Count 10.1 K/mm3 (4.4-11.0)
[2019-06-21 09:23] LABS: ALB/GLOB Ratio 0.4 RATIO (0.9-2.4); AST(SGOT) 113 U/L (15-37); Alanine Aminotransfer ALT/SGPT 63 U/L (13-56); Albumin, Serum 1.9 g/dL (3.2-5.0); Alkaline Phosphatase 147 U/L (45-117); Anion Gap 7 (5-15); BUN 40 mg/dL (7-18); BUN/Creat Ratio 32.3 RATIO (10-20); Calcium,Total 8.4 mg/dL (8.5-10.1); Chloride 108 mmol/L (98-107); Creatinine, Serum 1.24 mg/dL (0.55-1.02); EST Glomerular Filtration Rate 47 mL/min (>60); Est Glom Filt Rate - Afr Amer 56 mL/min (>60); Globulin 4.3 g/dL (2.2-4.2); Glucose 172 mg/dL (74-106); Potassium 3.8 mmol/L (3.5-5.1); Protein, Total 6.2 g/dL (6.4-8.2); Sodium Level 141 mmol/L (136-145)
[2019-06-21 09:26] LABS: Lactic Acid 1.5 mmol/L (0.4-1.9)
[2019-06-21 09:47] LABS: Bacteria 0 SEEN /hpf (None Seen); Mucous, Urine 0 SEEN /hpf (<or=2+); Red Blood Cells-Urine 0 SEEN /hpf (0-5); Squamous Epithelial Cells - UA 0 SEEN /hpf (5-10)
[2019-06-21 09:50] LABS: Color, Urine Straw (Yellow); Glucose, Dipstick 250 mg/dl (Normal); Ketone-Dipstick 5 mg/dl (Negative); Leukocyte Esterase-Dipstick 500 /ul (Negative); Nitrite-Dipstick Positive (Negative); Occult Blood-Urine 150 /ul (Negative); Protein-Dipstick 30 mg/dl (Negative); Urine Bilirubin Dipstick Negative (Negative); Urine Clarity Cloudy (Clear); Urine Urobilinogen Normal (Normal)
--- NOTE | 2019-06-21 09:57 | ED.DCSUM_ITS ---
- ER Visit Summary Date of Service: 06/21/19 Chief Complaint: Fever, increased odor from pannus wounds History of Present Illness: The patient is a 64 F presenting with fever and not feeling well. She believes that her pannus has become more infected. She states this started on Saturday. She was [facility]. She was admitted from 06 15-06 19 for rhabdomyolysis and acute kidney injury. She has had subjective fever and chills. She states she had increasing odor from her pannus. She has had abdominal pain, nausea, vomiting, diarrhea. Physical Examination: Vitals are stable. Patient is afebrile. Alert no acute distress. HEENT exam is unremarkable. Neck is supple. Lungs are clear and equal bilaterally. Heart is regular rate and rhythm. Abdomen is soft obese, inferior pannus wounds with purulent drainage and erythema Extremities are unremarkable. Skin is warm and dry. No focal neurologic deficit. Remainder of exam is unremarkable. Emergency Department Course and Treatment: CBC shows hemoglobin 8.9. Chemistries show glucose 172, BUN 40, creatinine 1.42. Alk phos 147, ALT 63, AST 113. Urinalysis shows over 100 white blood cells. Blood and urine cultures were sent. Lactic acid is normal. Chest x-ray shows no acute process. CT abdomen pelvis shows subcutaneous edema and skin thickening of the abdominal wall pannus and of the perineum. No intra-abdominal mass or obstruction. Hepatosplenomegaly. She was given Zosyn IV. Discussed with Dr. King who had seen her during her last 2 hospital admissions. He recommends transfer to [facility] for evaluation. She has been seen by plastic surgery at [facility] and is felt if she requires surgery it will be complicated. She and family are agreeable with this plan. Discussed with [facility] for transfer. Disposition: Transfer to [facility] Impression: Panniculitis This note was generated with [employer] dictation software. It may contain incorrect words, spelling, and punctuation that were not noted in review of the chart prior to signing ED Disposition - Plan for ED Patient: Referrals: Brittany Sorenson MD [Primary Care Provider] -
[2019-06-21 09:59] LABS: White Blood Cells >100 SEEN /hpf (0-5); Yeast-Urine 4+ /hpf (None Seen)
--- NOTE | 2019-06-21 10:36 | ED.RN ---
DRSG CHANGED TO POST PANNUS WITH PT ROLLING SIDE TO SIDE. W-D APPLIED D/T NOT HAVING ALLEVYN AVAILABLE. PT BAIRON WELL
[2019-06-21 10:38] VITALS: BP 131/62; PULSE 95; RESP 16; O2SAT 98
[2019-06-21 10:44] VITALS: BP 131/62; PULSE 95; RESP 16; TEMP 37.1; O2SAT 98
--- NOTE | 2019-06-21 10:56 | CT_ITS ---
STUDY: CT ABDOMEN AND PELVIS WITH CONTRAST REASON FOR EXAM: Female, 64 years old. PANNUS INFECTION? INCREASED ODOR AND PAIN RADIATION DOSAGE (If Supplied By Facility): CTDIvol = ( 22.72 ) mGy, DLP = ( 2900.47 ) mGycm TECHNIQUE: Transaxial images were obtained from the dome of the diaphragm to the symphysis pubis without oral contrast. IV 100mL Isovue-370 was administered. Sagittal and coronal images were reconstructed. Individualized dose optimization techniques were used for this CT. COMPARISON: May 08, 2019 FINDINGS: The visualized lung bases are unremarkable. The visualized portions of the heart are within normal limits. There is hepatomegaly with diffuse hepatic enlargement. There are surgical clips in the gallbladder fossa consistent with a prior cholecystectomy. There is mild splenomegaly. Normal pancreas. Normal bilateral adrenal glands. Normal right kidney. Normal left kidney. Normal visualized stomach. Normal small intestine. Normal colon. The appendix is visualized and appears normal. Normal abdominal aorta. Normal inferior vena cava. There is stable borderline retroperitoneal lymphadenopathy with partially calcified nodes no greater than 10mm in the short axis diameter. South catheter in the urinary bladder. Normal visualized uterus. There is no free fluid in the abdomen or pelvis. There is subcutaneous edema of the abdominal wall. There is skin thickening perineum and at the inferior aspect of large abdominal pannus. There is no fluid collection or abnormal air in the soft tissues. There are degenerative changes of the spine. CT/Abdomen/Pelvis W IV Cont ONLY IMPRESSION: Subcutaneous edema and skin thickening of the abdominal wall pannus and of the perineum. No intra-abdominal mass or obstruction. Hepatosplenomegaly. Electronically Signed: Jordan Pierre MD at 12:04 EST , Service support ,
[2019-06-21] MEDS: Morphine 4 MG/ML Syringe IV (12:26)
[2019-06-21] MEDS: Ondansetron 4 MG/2 ML Vial IV (12:26)
[2019-06-21 12:57] VITALS: BP 131/60; PULSE 85; RESP 20; TEMP 37.3; O2SAT 100
[2019-06-21 13:00] VITALS: BP 124/59; PULSE 77; RESP 19; TEMP 37.3; O2SAT 99
[2019-06-21 14:21] VITALS: BP 132/50; PULSE 84; RESP 17; O2SAT 99
== END 2019-06-21 14:32 | disposition short-term general hospital (02) ==
PROVIDERS: Emergency Provider Emergency Medicine; PCP Internal Medicine
DX: M79.3 Panniculitis, unspecified (principal); R11.2 Nausea with vomiting, unspecified; R19.7 Diarrhea, unspecified; R16.2 Hepatomegaly with splenomegaly, not elsewhere classified; E66.9 Obesity, unspecified; K21.9 Gastro-esophageal reflux disease without esophagitis; E11.9 Type 2 diabetes mellitus without complications; I10 Essential (primary) hypertension; I48.91 Unspecified atrial fibrillation; D64.9 Anemia, unspecified; Z79.01 Long term (current) use of anticoagulants; Z79.899 Other long term (current) drug therapy
CPT/HCPCS: 36592; 71045; 74177; 80053; 81001; 83605; 85025; 87040; 87077; 87086; 87088; 87186; 87804; 96361; 96365; 96374; 96375; 99285; J7040; J7050; Q9967; A4216; J2405

== ENCOUNTER 2019-09-21 17:35 | Inpatient (IN) | payer MEDICARE, MEDICAID, SELFPAY ==
[2019-09-21 17:37] VITALS: BP 98/44; PULSE 65; RESP 18; TEMP 36.9; O2SAT 100; BMI 46.3
[2019-09-21 17:46] VITALS: BP 91/42; PULSE 65; RESP 18; O2SAT 97
--- NOTE | 2019-09-21 18:26 | EKG12_ITS ---
Test Reason : DYSRYTHMIA Blood Pressure : / mmHG Vent. Rate : 068 BPM Atrial Rate : 068 BPM P-R Int : 172 ms QRS Dur : 082 ms QT Int : 408 ms P-R-T Axes : 036 -28 022 degrees QTc Int : 433 ms Normal sinus rhythm Poor R wave progression Anterior NH, age undetermined, cannot be excluded Confirmed by ANGEL FAGAN, ROSA MARIA ([id number]), editor index YAO LORENZO ([id number]) on 09/24/2019 4:00:27 PM Referred By: YUE Confirmed By:ROSA MARIA ORTIZ MD
--- NOTE | 2019-09-21 18:30 | ED.DCSUM_ITS ---
- ER Visit Summary Date of Service: 09/21/19 Chief Complaint: Fatigue History of Present Illness: The patient is a 64 F presenting with fatigue from assisted living. Patient states that she has felt tired and dehydrated. She is unsure why she was sent to the emergency department. She checked herself into assisted living yesterday to help her care for her chronic wounds. She states she was seen by the wound doctor by video today. She states her wounds have been stable. She denies fever. Denies chest pain or shortness of breath. Denies abdominal pain. Physical Examination: Blood pressure 87/34. Patient is afebrile. Alert no acute distress. HEENT exam is unremarkable. Neck is supple. Lungs are clear and equal bilaterally. Heart is regular rate and rhythm. Abdomen is soft obese nondistended, posterior buttock and thigh wounds.. Extremities are unremarkable. Skin is warm and dry. No focal neurologic deficit. Remainder of exam is unremarkable. Emergency Department Course and Treatment: She was given IV fluids. Blood pres sure improved to 106/48. CBC shows hemoglobin 9.7, platelet 130. Chemistries show glucose 146, BUN 53, creatinine 2.24. Alk phos 125, AST 46, INR 2.2. Previous creatinine 1.24. Urinalysis shows positive leukocytes and nitrites, over 100 white blood cells. Lactic acid is normal. Chest x-ray shows no acute process. EKG is sinus rate of 68 with no acute ischemic changes. She was given meropenem IV. Discussed with the hospitalist for admission. Disposition: Admission Impression: UTI, JH, dehydration, chronic pressure wounds This note was generated with [employer] dictation software. It may contain incorrect words, spelling, and punctuation that were not noted in review of the chart prior to signing ED Disposition - Plan for ED Patient: Referrals: Brittany Sorenson MD [Primary Care Provider] -
--- NOTE | 2019-09-21 18:50 | RAD_ITS ---
STUDY: X-RAY CHEST REASON FOR EXAM: Female, 64 years old. shortness of breath, UTI TECHNIQUE: Single AP portable view of the chest. COMPARISON: June 21, 2019 FINDINGS: There are interstitial fibrotic changes of the lungs. There is no demonstrated pleural abnormality. Normal size heart. Normal mediastinum and ian. Normal visualized pulmonary arteries. Normal visualized aortic arch and descending thoracic aorta. There are diffuse degenerative changes of the visualized thoracic spine. There is degenerative osteoarthritis of the bilateral shoulders. There is no demonstrated abnormality of the visualized soft tissue structures of the upper abdomen. RAD/Chest 1 View (Portable) IMPRESSION: Degenerative changes, as described above. No demonstrated acute cardiopulmonary process. Electronically Signed: Jordan Pierre MD at 19:19 EDT , Service support ,
[2019-09-21] MEDS: 0.9% Normal Saline 1,000 ML 999 ML IV (19:00)
[2019-09-21 19:47] LABS: Absolute Lymphocyte Count 1.03 X10^3/uL (0.83-4.51); Absolute Neutrophil Count 2.8 X10^3/uL (2.0-7.7); Basophil# 0.02 X10^3/uL; Basophil% 0.4 % (0-1); Eosinophil# 0.08 X10^3/uL; Eosinophils% 1.8 % (0-5); Hemoglobin 9.7 g/dL (12.0-15.0); Lymphocyte # 1.03 X10^3/ul (4.0); Lymphocyte % 22.6 % (19-41); Mean Corp Hgb Conc 31.3 g/dL (32-36); Mean Corpuscular Volume 92.5 fL (81-99); Mean Platelet Vol. 10.3 fl (6.2-12.0); Monocyte# 0.57 X10^3/uL; Monocyte% 12.5 % (0-10); NRBC Flagged by Analyzer 0 % (0-5); Neutrophil # 2.83 X10^3/uL (2.7-7.7); Neutrophil % 62.3 % (47-70); Platelet Count 130 K/mm3 (150-450); RBC Distribution Width CV 14.6 % (11.6-14.6); RBC Distribution Width SD 48.8 fl (35.1-43.9); Red Blood Count 3.35 M/mm3 (4.2-5.4); White Blood Count 4.6 K/mm3 (4.4-11.0)
[2019-09-21 19:55] LABS: International Normalized Ratio 2.2; Partial Thromboplast Time 44.2 Seconds (24.1-36.2); Prothrombin Time (Protime)PT. 24.1 SECONDS (11.7-14.9)
[2019-09-21 19:57] LABS: ALB/GLOB Ratio 0.4 RATIO (0.9-2.4); AST(SGOT) 46 U/L (15-37); Alanine Aminotransfer ALT/SGPT 37 U/L (13-56); Albumin, Serum 2.3 g/dL (3.2-5.0); Alkaline Phosphatase 125 U/L (45-117); Anion Gap 5 (5-15); BUN 53 mg/dL (7-18); BUN/Creat Ratio 23.7 RATIO (10-20); Calcium,Total 8.7 mg/dL (8.5-10.1); Chloride 103 mmol/L (98-107); Creatinine, Serum 2.24 mg/dL (0.55-1.02); EST Glomerular Filtration Rate 24 mL/min (>60); Est Glom Filt Rate - Afr Amer 28 mL/min (>60); Estimated Creatinine Clearance 19.65 ml/min; Globulin 5.2 g/dL (2.2-4.2); Glucose 146 mg/dL (74-106); Lactic Acid 0.9 mmol/L (0.4-1.9); Potassium 3.7 mmol/L (3.5-5.1); Protein, Total 7.5 g/dL (6.4-8.2); Sodium Level 137 mmol/L (136-145)
[2019-09-21 20:04] VITALS: BP 100/59; PULSE 64; PULSE 68; RESP 12; RESP 18; TEMP 36.6; O2SAT 97; O2SAT 99
[2019-09-21 20:06] LABS: Bacteria 0 SEEN /hpf (None Seen); Mucous, Urine 0 SEEN /hpf (<or=2+); Red Blood Cells-Urine 0 SEEN /hpf (0-5); Squamous Epithelial Cells - UA 0 SEEN /hpf (5-10)
[2019-09-21 20:27] LABS: Color, Urine Yellow (Yellow); Glucose, Dipstick Normal (Normal); Ketone-Dipstick Negative (Negative); Leukocyte Esterase-Dipstick 500 /ul (Negative); Nitrite-Dipstick Positive (Negative); Occult Blood-Urine 150 /ul (Negative); Protein-Dipstick 100 mg/dl (Negative); Specific Gravity, Urine 1.015 (1.002-1.030); Urine Bilirubin Dipstick Negative (Negative); Urine Clarity Turbid (Clear); Urine Urobilinogen Normal (Normal)
[2019-09-21 20:55] LABS: White Blood Cells >100 SEEN /hpf (0-5)
[2019-09-21 21:15] VITALS: BP 106/48; PULSE 66; RESP 15; TEMP 36.8; O2SAT 96
--- NOTE | 2019-09-21 21:30 | PCM.HP.STD ---
Problem List (1) UTI (urinary tract infection) Status: Acute Qualifiers: Urinary tract infection type: site unspecified (2) JH (acute kidney injury) Status: Acute (3) CKD (chronic kidney disease), stage III Status: Chronic (4) Diabetes mellitus, type II Status: Chronic Qualifiers: Diabetes mellitus long-term insulin use: without manager terminal use Diabetes mellitus complication status: with other specified complication Qualified Code(s): E11.69 - Type 2 diabetes mellitus with other specified complication (5) Iron deficiency anemia Status: Chronic Qualifiers: Iron deficiency anemia type: unspecified iron deficiency Qualified Code(s): D50.9 - Iron deficiency anemia, unspecified (6) GERD (gastroesophageal reflux disease) Status: Chronic Qualifiers: Esophagitis presence: esophagitis presence not specified Qualified Code(s): K21.9 - Gastro-esophageal reflux disease without esophagitis (7) Anxiety and depression Status: Chronic (8) Chronic pain syndrome Status: Chronic (9) Morbid obesity Status: Chronic (10) Paroxysmal atrial fibrillation Status: Chronic (11) Essential (primary) hypertension Status: Chronic (12) Hyperlipidemia Status: Chronic Qualifiers: Hyperlipidemia type: unspecified Qualified Code(s): E78.5 - Hyperlipidemia, unspecified (13) 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 The patient is a 64 y/o F w/ PMHx: Morbid Obesity, PAF, Hx ischial pressure sores, HTN, HLD, Anxiety and Depression, Chronic anemia, Chronic thrombocytopenia, Diabetes mellitus type II, Wheelchair bound secondary to weight from Assisted Living who presents to the [facility] ED on 09/21/19 with history of increased fatigue, weakness, dysuria, chills without fever x 3 days with facility placement of catheterization and notable UA upon their evaluation with unclear history of retention with hypotension at their evaluation prompting referral to the ED. She did have recent wound care evaluation and wounds are chronic stable appearing. Work-up in the ED included T 98.4, heart rate 65, BP 98/44, respiratory rate 18, 100% on room air, CBC with WBC 4.6, hemoglobin 9.7, platelet 130 without market shift, coags with PT 24.1, INR 2.2, PTT 44.2, CMP with BUN/creatinine 53/2.24, glucose 146, lactic acid 0.9, AST/ALT 46/87, alk phos 125, urinalysis with specific gravity 1.015, protein 100, occult blood 150, positive nitrite, 500 leukocyte esterase, culture x2 and urine culture pending per ED, chest x-ray with no acute cardiopulmonary findings with chronic degenerative changes. In the ED patient administered meropenem following discussions with ED physician given prior resistance patterns and IVFs. Past Medical History Past Medical History (Chronic Problems): Chronic Problems (Last Reviewed 04/08/19 @ 08:50 by Emi Keene) CKD (chronic kidney disease), stage III (Chronic) Diabetes mellitus, type II (Chronic) Iron deficiency anemia (Chronic) GERD (gastroesophageal reflux disease) (Chronic) Anxiety and depression (Chronic) Chronic pain syndrome (Chronic) Morbid obesity (Chronic) Paroxysmal atrial fibrillation (Chronic) Essential (primary) hypertension (Chronic) Hyperlipidemia (Chronic) jail (current) use of anticoagulants (Chronic) Eliquis for atrial fibrillation Abdominal panniculus (Chronic) Edema of abdominal wall (Chronic) Intertrigo (Chronic) abdominal wall skin crease intertrigo Panniculitis (Chronic) Medical History: Medical History (Last Reviewed 04/08/19 @ 08:50 by Emi Keene) Morbid obesity (Chronic) E66.01 Paroxysmal atrial fibrillation (Chronic) I48.0 Essential (primary) hypertension (Chronic) I10 Hyperlipidemia (Chronic) E78.5 Abdominal panniculus (Chronic) E65 Edema of abdominal wall (Chronic) R60.0 Intertrigo (Chronic) L30.4 abdominal wall skin crease intertrigo Panniculitis (Chronic) M79.3 Abdominal wall pain in both lower quadrants R10.31, R10.32 Anemia D64.9 Arthritis M19.90 Atrial fibrillation with rapid ventricular response Onset Date: 12/2017 I48.91 Back problem M53.9 Breast lump in female N63.0 Depression F32.9 Difficulty balancing when standing R26.89 and when ambulating Excessive weight loss R63.4 70 lbs over last year Late effect of medical and surgical care complication T88.9XXS painful insulin nodules abdominal wall Neuropathy G62.9 Normochromic normocytic anemia D64.9 Osteoarthritis M19.90 Panniculitis M79.3 Pressure sore of left ischium, unstageable L89.320 Pressure ulcer L89.90 Right ischial pressure sore, stage 2 L89.312 Thrombocytopenia D69.6 Type 2 diabetes mellitus E11.9 Umbilical hernia K42.9 History of blood transfusion Z92.89 Kidney failure N19 Rupture of hernia K46.[address] OAKLEY UTI (urinary tract infection) N39.0 Allergies amoxicillin Adverse Reaction (Verified 06/15/19 15:33) Other latex Adverse Reaction (Verified 06/15/19 15:33) Other Home Medications: Ambulatory Orders Medication Instructions Recorded Citalopram [Celexa] 20 mg PO DAILY 07/10/16 Ascorbic Acid [Vitamin C] 500 mg PO DAILY 06/21/19 Multivit,Stress Formula/Zinc 1 ea PO DAILY 06/21/19 [Stress Formula with Zinc Tab] Alpha Lipoic Acid 600 mg PO DAILY 09/21/19 Apixaban [Eliquis] 5 mg PO BID 09/21/19 Famotidine [Pepcid] 20 mg PO BID 09/21/19 Gabapentin 600 mg PO QHS 09/21/19 Gabapentin [Neurontin] 300 mg PO DAILY 09/21/19 Metoprolol Succinate [Toprol Xl] 25 mg PO DAILY 09/21/19 Morphine [Morphine IR] 30 mg PO BID PRN 09/21/19 Tizanidine HCl 4 mg PO BID PRN 09/21/19 Surgical History: Surgical History (Last Reviewed 04/08/19 @ 08:50 by Emi Keene) Bilateral ischial wound debridement History of herniorrhaphy Z98.890, Z87.19 Hx of cholecystectomy Z90.49 Surgical History: cholecystectomy, herniorrhaphy, - - Excision left ischial pressure sore into the muscle, Stage IV, and excision right ischial pressure sore into the subcutaneous tissue, Stage III, with 6 cm layered closure - 07/25/17 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, Depression 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 Smoking Status: Never smoker Tobacco Use: Non-smoker Alcohol: None Drugs: None - *Family History Maternal Family History: Family History (Last Reviewed 04/08/19 @ 08:50 by Emi Keene) Father Diabetes Mother Arthritis Hypertension Heart disease Sister Arthritis Diabetes Heart disease Hypertension High cholesterol History Items: High Cholesterol, Heart Disease, Hypertension Paternal Family History: Family History (Last Reviewed 04/08/19 @ 08:50 by Emi Keene) Father Diabetes Mother Arthritis Hypertension Heart disease Sister Arthritis Diabetes Heart disease Hypertension High cholesterol History Items: Diabetes Review of Systems Constitutional: Reports: Anorexia, Chills, Malaise, Weakness, Fatigue. Denies: Fever, Weight Change HEENT: Denies: Head Aches, Sinus Congestion, Sinus Drainage Cardiovascular: Denies: Chest Pain, Palpitations Respiratory: Denies: Cough, Shortness of breath at rest, Shortness of breath upon exertion, Sputum production, Wheezing Gastrointestinal: Denies: Abdominal Pain, Nausea, Vomiting Genitourinary: Reports: Dysuria, Frequency Musculoskeletal: Reports: Back Pain, Joint Pain. Denies: Joint Tenderness Skin: Denies: Rash, Wounds Neurological: Reports: - - Chronic lower extremity weakness, chronically uses a wheelchair.. Denies: Focal weakness, Numbness, Tingling Psychiatric: Reports: Anxiety, Depression. Denies: Homicidal Ideations, Suicidal Ideations Hematologic/ Lymphatic: Reports: Anemia, Easy Bruising, Easy Bleeding VTE Information - Inpt Only VTE Present on Admission: No VTE Mechan Device Prophylaxis: SCD's VTE Pharm Prophylaxis ordered?: No Reason prophylaxis not ordered:: Treatment Not Indicated - on oral agents. Patient Problems: Active and Suspected Problems (Last Reviewed 04/08/19 @ 08:50 by Emi Keene) UTI (urinary tract infection) (Acute) JH (acute kidney injury) (Acute) Subjective: Laying in the ED bed, no acute distress, fatigued appearance. Objective: Physical Examination: General: awake, alert, oriented x 3 and cooperative, seated upright in the ED bed, fatigued and ill-appearing. Skin: normal color, turgor, no icterus, cyanosis or notable bilateral lower extremity stasis changes, chronic posterior ischial wounds, recent wound evaluation on day of presentation noted to be stable per patient report. HEENT: AT/NC, EOMI, PERRLA, dry MM, no carotid bruits or JVD noted evidence; however, thickened neck makes examination difficult. Lungs: Diminished breath sounds , > bilateral bases, moderate effort, no rales, ronchi or wheezing. Heart: Regular rate and rhythm; no gallop, rub audible. Abdomen: soft, morbidly obese, nontender to palpation, distant bowel sounds normal, unable to discern HSM secondary to severity of habitus. Extremities: no cyanosis, clubbing, bilateral lower extremity ankle to distal caruso 1+ pitting edema, see skin. Neurological: patient awake, alert, oriented x 3; cognitive function intact; pupils equally reactive to light and accomodation; cranial nerves II-XII grossly normal, moving all 4 extremities, no focal deficits, strength severely global decrease secondary to chronic comorbidities, wheelchair bound with transfer ability only secondary to weight. Psychiatric: affect appears fatigued and ill-appearing, no acute evidence of depressive or anxiety feelings. - Physical Exam Vitals/I&O's: Vital Signs Temp Pulse Resp BP Pulse Ox 98.3 F 66 15 106/48 L 96 09/21/19 21:15 09/21/19 21:15 09/21/19 21:15 09/21/19 21:15 09/21/19 21:15 Oxygen Delivery Method Room Air Weight: 245 lb 5.992 oz Body Mass Index (BMI) 46.3 Finger Stick Blood Glucose 236 Intake and Output for Last 24 Hours 09/19/19 09/20/19 09/21/19 23:59 23:59 23:59 Intake Total 1000 / 1000 Balance 1000 / 1000 Laboratory Results 09/21/19 19:00: WBC 4.6, RBC 3.35 L, Hgb 9.7 L, Hct 31.0 L, MCV 92.5, MCH 29.0, MCHC 31.3 L, RDW Std Deviation 48.8 H, RDW Coeff of Radha 14.6, Plt Count 130 L, MPV 10.3, Immature Gran % (Auto) 0.400, Neut % (Auto) 62.3, Lymph % (Auto) 22.6, Culberson % (Auto) 12.5 H, Eos % (Auto) 1.8, Baso % (Auto) 0.4, Absolute Neuts (auto) 2.8, Absolute Lymphs (auto) 1.03, Nucleated RBC % 0 09/21/19 19:00: PT 24.1 H, INR 2.2, APTT 44.2 H 09/21/19 19:00: Sodium 137, Potassium 3.7, Chloride 103, Carbon Dioxide 29.0, Anion Gap 5, BUN 53 H, Creatinine 2.24 H, Estim Creat Clear Calc 19.65, Est GFR (MDRD) Af Amer 28 L, Est GFR (MDRD) Non-Af 24 L, BUN/Creatinine Ratio 23.7 H, Glucose 146 H, Calcium 8.7, Total Bilirubin 0.40, AST 46 H, ALT 37, Alkaline Phosphatase 125 H, Total Protein 7.5, Albumin 2.3 L, Globulin 5.2 H, Albumin/Globulin Ratio 0.4 L 09/21/19 19:00: Lactic Acid 0.9 09/21/19 19:50: Urine Color Yellow, Urine Clarity Turbid, Urine pH 6.0, Ur Specific Mathews 1.015, Urine Protein 100 H, Urine Glucose (UA) Normal, Urine Ketones Negative, Urine Occult Blood 150 H, Urine Nitrite Positive H, Urine Bilirubin Negative, Urine Urobilinogen Normal, Ur Leukocyte Esterase 500 H, Urine RBC 0 SEEN, Urine WBC >100 SEEN, Ur Squamous Epith Cells 0 SEEN, Urine Bacteria 0 SEEN, Urine Mucus 0 SEEN Assessment/Plan All Active Problems (Last Reviewed 04/08/19 @ 08:50 by Eim Keene) UTI (urinary tract infection) (Acute) JH (acute kidney injury) (Acute) Skin necrosis (Acute) Pressure injury of right perineal ischial region, unstageable (Acute) Pressure injury of left perineal ischial region, unstageable (Acute) Septic shock (Acute) Acute renal failure (Acute) Hyperkalemia (Acute) Sepsis (Acute) Panniculitis (Acute) JH (acute kidney injury) (Acute) Hyperkalemia (Acute) Hyponatremia (Acute) ARF (acute renal failure) (Resolved) Acute cystitis (Resolved) Decubitus ulcer of left ischium, stage 4 (Resolved) Hyperkalemia (Resolved) Hypoglycemia associated with type 2 diabetes mellitus (Resolved) Open wound of umbilical region (Resolved) Pressure sore of left ischium, unstageable (Resolved) Rhabdomyolysis (Resolved) Right ischial pressure sore, stage 2 (Resolved) Right ischial pressure sore, stage 3 (Resolved) Skin necrosis (Resolved) The patient is a 64 y/o F w/ PMHx: Morbid Obesity, PAF, Hx ischial pressure sores, HTN, HLD, Anxiety and Depression, Chronic anemia, Chronic thrombocytopenia, Diabetes mellitus type II, Wheelchair bound secondary to weight from Assisted Living who presents to the [facility] ED on 09/21/19 with history of increased fatigue, weakness, dysuria, chills without fever x 3 days with facility placement of catheterization and notable UA upon their evaluation with unclear history of retention with hypotension at their evaluation prompting referral to the ED. 1. Acute Urinary Tract Infection complicated by prior Resistances: Will admit to [facility] telemetry, UA upon ED evaluation remarkable, pending UCx, continue IVFs, monitor I/Os, previous E. coli urine culture recently obtained on 06/21/2019 with significant resistance patterns therefore to be cautious will place on meropenem pending cultures w/ transition as able pending sensitivities and speciation. Bld cx x 2 obtained in the ED. 2. Acute kidney injury on CKD stage III: Secondary to poor intake, acute presentation as noted #1. Admission BUN/Cr 83/2.24, prior baseline creatinine noted to be 0.7-0.8 although has had elevations with acute presentations to the hospital but most recent on 06/21/2019 BUN/creatinine 40/1.24. Will hydrate this Henrique, hold nephrotoxic medications and repeat chemistry in AM. 3. Chronic Ischial Wounds: Recent Wound Care evaluation on day of presentation, stable appearing, will maintain on q 2 hour turns, request wound RN evaluation, dressing changes per her usual regimen. 4. Hypertension: Continue home regimen including metoprolol, PRN hydralazine. 5. Diabetes mellitus type II: Hold oral home regimen, allow ADA diet, accu checks w/ ISS. 6. Morbid Obesity: Weight loss and lifestyle changes encouraged. 7. GERD: Maintain on PPI. 8. Anxiety and depression: Will continue home Celexa. 9. Chronic pain syndrome: We will continue home chronic pain regimen however if worsening renal function may need to renal dose or hold. 10. PAF: We will continue patient home Eliquis regimen as well as metoprolol. 11. DVT prophylaxis: SCDs, home eliquis regimen. 12. CODE status: Patient has no HCPOA nor living will and encouraged her again to have these items set-up as have discussed in the past. Given her history and co-morbidities, discussed CODE status at length including difference between FULL code, DNR-CCA and DNR-CC status. Following discussions about the differences in these status, requested Full Code status. Encouraged her to discuss setting up these items with case management and assigning a family member. Advanced Care Planning Face to Face Time: 16 minutes. Inpatient E&M: 29312 Init Hosp L3 Procedures: 93761 Advncd Care Plan 30 Min
--- NOTE | 2019-09-21 23:07 | ED.RN ---
pt sister notified of admission with pt permission.
[2019-09-21 23:08] VITALS: BP 114/43; PULSE 70; RESP 13; O2SAT 95
[2019-09-21 23:09] VITALS: BP 114/43; PULSE 66; RESP 17; TEMP 36.8; O2SAT 96
[2019-09-22] VITALS (21 sets, daily range): BP systolic 101–120; BP diastolic 47–72; PULSE 69–145; RESP 13–18; TEMP 36.7–37.7; O2SAT 95–97; BMI 44.9
[2019-09-22 00:11] LABS: Magnesium 2.1 mg/dL (1.6-2.6)
[2019-09-22 00:23] LABS: Hemoglobin A1c 6.2 % (4.2-6.3)
[2019-09-22] MEDS: Gabapentin 600 MG Tablet PO ×2 (00:45→22:19)
[2019-09-22] MEDS: Pantoprazole Sodium 20 MG Tablet PO ×3 (00:45→22:18)
[2019-09-22] MEDS: 0.9% Normal Saline 1,000 ML 125 ML IV ×4 (00:45→20:01)
[2019-09-22] MEDS: APIXABAN 5 MG TABLET PO ×3 (00:46→22:18)
[2019-09-22 00:56] LABS: Bedside Glucose 128 mg/dL (70-110)
[2019-09-22 06:41] LABS: Bedside Glucose 89 mg/dL (70-110)
[2019-09-22 08:14] LABS: Absolute Lymphocyte Count 1.06 X10^3/uL (0.83-4.51); Absolute Neutrophil Count 2.1 X10^3/uL (2.0-7.7); Basophil# 0.01 X10^3/uL; Basophil% 0.3 % (0-1); Eosinophil# 0.11 X10^3/uL; Eosinophils% 2.9 % (0-5); Hematocrit 30.1 % (37-47); Hemoglobin 9.3 g/dL (12.0-15.0); Lymphocyte # 1.06 X10^3/ul (4.0); Mean Corp Hgb Conc 30.9 g/dL (32-36); Mean Corpuscular Hgb 28.6 pg (27.0-32.0); Mean Corpuscular Volume 92.6 fL (81-99); Mean Platelet Vol. 10.2 fl (6.2-12.0); Monocyte# 0.51 X10^3/uL; Monocyte% 13.5 % (0-10); NRBC Flagged by Analyzer 0 % (0-5); Neutrophil # 2.09 X10^3/uL (2.7-7.7); Platelet Count 120 K/mm3 (150-450); RBC Distribution Width CV 14.6 % (11.6-14.6); RBC Distribution Width SD 49.1 fl (35.1-43.9); Red Blood Count 3.25 M/mm3 (4.2-5.4); White Blood Count 3.8 K/mm3 (4.4-11.0)
[2019-09-22 08:39] LABS: Anion Gap 7 (5-15); BUN 44 mg/dL (7-18); BUN/Creat Ratio 27.2 RATIO (10-20); Calcium,Total 8.6 mg/dL (8.5-10.1); Chloride 105 mmol/L (98-107); Creatinine, Serum 1.62 mg/dL (0.55-1.02); EST Glomerular Filtration Rate 34 mL/min (>60); Est Glom Filt Rate - Afr Amer 41 mL/min (>60); Estimated Creatinine Clearance 27.17 ml/min; Glucose 84 mg/dL (74-106); Potassium 3.6 mmol/L (3.5-5.1); Sodium Level 140 mmol/L (136-145)
[2019-09-22] MEDS: Citalopram 20 MG Tablet PO (10:02)
[2019-09-22] MEDS: Ascorbic Acid 500 MG Tablet PO (10:03)
[2019-09-22] MEDS: Gabapentin 300 MG Capsule PO (10:03)
[2019-09-22] MEDS: Metoprolol(XL)Succ 25 MG Tablet PO (10:03)
--- NOTE | 2019-09-22 10:04 | NURSING ---
wound photo: left abdominal fold
--- NOTE | 2019-09-22 10:05 | NURSING ---
wound photo: right abdominal fold
--- NOTE | 2019-09-22 10:06 | NURSING ---
wound photo: bilateral ischium
--- NOTE | 2019-09-22 10:07 | NURSING ---
wound photo: zaria
[2019-09-22] MEDS: Glucerna Shake 120 ML LIQUID PO ×2 (10:08→11:48)
--- NOTE | 2019-09-22 10:46 | CASEMGMT ---
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 Original Note: Social Work Note SW updated that pt is from [facility]. SW in to speak with pt. SW introduced self and role at [facility]. Pt is alert and orientated x3. Pt confirms that she is from [facility] and plans on returning at discharge. KINJAL placed a call to Cely at [facility], left message. KINJAL faxed updated clinicals to [facility]. Plan: Return to [facility] Farzana Contreras ACCOUNTS RECEIVABLE CLERK, AUTOMOBILE ASSEMBLY SUPERVISOR
--- NOTE | 2019-09-22 11:20 | NURSING ---
pt reported that she recently had C Diff, called [facility] and verified that pt was diagnosed with C Diff but completed antibiotic course on September 12, 2019
[2019-09-22 11:56] LABS: Bedside Glucose 129 mg/dL (70-110)
--- NOTE | 2019-09-22 11:58 | PCM.PN.HOSP ---
Patient Problems: Active and Suspected Problems (Last Reviewed 04/08/19 @ 08:50 by Emi Keene) UTI (urinary tract infection) (Acute) JH (acute kidney injury) (Acute) Reason for Visit: Follow-up for JH and UTI. Subjective: Seen and examined. She feels much better today and has no complaints. She denies any fever, chills, nausea vomiting or burning with urination. Review of signs otherwise negative. Labs and vitals reviewed. Creatinine is down to 1.62 from 2.4 on admission and WBC is 3.8. Vitals/I&O's: Vital Signs Temp Pulse Resp BP Pulse Ox 98.3 F 78 16 116/57 L 97 09/22/19 10:00 09/22/19 10:03 09/22/19 10:00 09/22/19 10:00 09/22/19 10:00 Oxygen Delivery Method Room Air Weight: 237 lb 14.06 oz Body Mass Index (BMI) 44.9 Finger Stick Blood Glucose 236 Intake and Output for Last 24 Hours 09/20/19 09/21/19 09/22/19 23:59 23:59 23:59 Intake Total 1000 / 1000 1182.08 / 1182.08 Output Total 650 / 650 Balance 1000 / 1000 532.08 / 532.08 General: Alert, Oriented x3, Cooperative, No apparent distress HEENT: Atraumatic, PERRLA, EOMI, Normocephalic Oral: Dry Mucosa Neck: Supple, No JVD, Negative Carotid Bruits Lungs: Clear to auscultation, Normal air movement, No rhonchi, No wheeze Cardiovascular: Regular rate, Regular Rhythm, Normal S1, Normal S2, No murmurs Abdomen: Bowel Sounds Present, Soft, Non Tender, Non-Distended, No Hepato-splenomegaly Extremities: No clubbing, No cyanosis, No edema, Capillary Refill Less than 3 Seconds Skin: No rashes, No breakdown Musculoskeletal: No Tenderness to Palpation of Joints or Extremities Lymphatic: No Cervical, Supraclavicular, or Inguinal Adenopathy Neurological: Cranial nerves II-XII grossly intact, Neuro grossly intact, Motor Exam 5/5 strength throughout Psych/Mental Status: Normal Affect, Appropriate, Alert and oriented to time, place, person, mood and affect Laboratory Results 09/21/19 19:00: WBC 4.6, RBC 3.35 L, Hgb 9.7 L, Hct 31.0 L, MCV 92.5, MCH 29.0, MCHC 31.3 L, RDW Std Deviation 48.8 H, RDW Coeff of Radha 14.6, Plt Count 130 L, MPV 10.3, Immature Gran % (Auto) 0.400, Neut % (Auto) 62.3, Lymph % (Auto) 22.6, Taliaferro % (Auto) 12.5 H, Eos % (Auto) 1.8, Baso % (Auto) 0.4, Absolute Neuts (auto) 2.8, Absolute Lymphs (auto) 1.03, Nucleated RBC % 0 09/21/19 19:00: PT 24.1 H, INR 2.2, APTT 44.2 H 09/21/19 19:00: Sodium 137, Potassium 3.7, Chloride 103, Carbon Dioxide 29.0, Anion Gap 5, BUN 53 H, Creatinine 2.24 H, Estim Creat Clear Calc 19.65, Est GFR (MDRD) Af Amer 28 L, Est GFR (MDRD) Non-Af 24 L, BUN/Creatinine Ratio 23.7 H, Glucose 146 H, Calcium 8.7, Total Bilirubin 0.40, AST 46 H, ALT 37, Alkaline Phosphatase 125 H, Total Protein 7.5, Albumin 2.3 L, Globulin 5.2 H, Albumin/Globulin Ratio 0.4 L 09/21/19 19:00: Lactic Acid 0.9 09/21/19 19:00: Magnesium 2.1 09/21/19 19:00: Hemoglobin A1c 6.2 09/21/19 19:50: Urine Color Yellow, Urine Clarity Turbid, Urine pH 6.0, Ur Specific [place] 1.015, Urine Protein 100 H, Urine Glucose (UA) Normal, Urine Ketones Negative, Urine Occult Blood 150 H, Urine Nitrite Positive H, Urine Bilirubin Negative, Urine Urobilinogen Normal, Ur Leukocyte Esterase 500 H, Urine RBC 0 SEEN, Urine WBC >100 SEEN, Ur Squamous Epith Cells 0 SEEN, Urine Bacteria 0 SEEN, Urine Mucus 0 SEEN 09/22/19 00:45: POC Glucose 128 H 09/22/19 06:27: POC Glucose 89 09/22/19 07:10: WBC 3.8 L, RBC 3.25 L, Hgb 9.3 L, Hct 30.1 L, MCV 92.6, MCH 28.6, MCHC 30.9 L, RDW Std Deviation 49.1 H, RDW Coeff of Radha 14.6, Plt Count 120 L, MPV 10.2, Immature Gran % (Auto) 0.300, Neut % (Auto) 55.0, Lymph % (Auto) 28.0, Taliaferro % (Auto) 13.5 H, Eos % (Auto) 2.9, Baso % (Auto) 0.3, Absolute Neuts (auto) 2.1, Absolute Lymphs (auto) 1.06, Nucleated RBC % 0 09/22/19 07:10: Sodium 140, Potassium 3.6, Chloride 105, Carbon Dioxide 28.0, Anion Gap 7, BUN 44 H, Creatinine 1.62 H, Estim Creat Clear Calc 27.17, Est GFR (MDRD) Af Amer 41 L, Est GFR (MDRD) Non-Af 34 L, BUN/Creatinine Ratio 27.2 H, Glucose 84, Calcium 8.6 09/22/19 11:44: POC Glucose 129 H Diagnostic Data Chest X-Ray 09/21/19 18:50 IMPRESSION: Degenerative changes, as described above. No demonstrated acute cardiopulmonary process. Electronically Signed: Jordan Pierre MD at 19:19 EDT , Service support , Current Medications Acetaminophen (Tylenol) 650 mg PO Q6H PRN PRN PRN Reason: Pain Score 1-10/Temp > 100.7 F Al Hydroxide/Mg Hydroxide (Mylanta Ii) 30 ml PO Q6H PRN PRN PRN Reason: Gastric Burning Albuterol Sulfate (Ventolin Aerosols) 2.5 mg INHALATION Q2H PRN PRN PRN Reason: Dyspnea, wheezing Apixaban (Eliquis) 5 mg PO BID [facility] Last Admin: 09/22/19 10:04 Dose: 5 mg Documented by: Ascorbic Acid (Vitamin C) 500 mg PO DAILY [facility] Last Admin: 09/22/19 10:03 Dose: 500 mg Documented by: Citalopram Hydrobromide (Celexa) 20 mg PO DAILY [facility] Last Admin: 09/22/19 10:02 Dose: 20 mg Documented by: Dextrose (D50w Syringe) 0 gm IV X1 PRN; Protocol PRN Reason: Hypoglycemia Gabapentin (Neurontin) 300 mg PO DAILY [facility] Last Admin: 09/22/19 10:03 Dose: 300 mg Documented by: Gabapentin (Neurontin) 600 mg PO QHS [facility] Last Admin: 09/22/19 00:45 Dose: 600 mg Documented by: Glucagon () 1 mg IM .X1 PRN PRN Reason: Hypoglycemia Guaifenesin (Robitussin) 20 ml PO Q4H PRN PRN PRN Reason: COUGH Hydralazine HCl (Apresoline Iv) 10 mg IV Q4H PRN PRN PRN Reason: SBP > 160 Hydromorphone HCl (Dilaudid Inj) 1 mg IV Q4H PRN PRN PRN Reason: Pain Score 6-10/10 Sodium Chloride () 1,000 mls @ 125 mls/hr IV .Q8H [facility] Last Infusion: 09/22/19 10:37 Dose: 125 mls/hr Documented by: Meropenem 500 mg/ Sodium (Chloride) 60 mls @ 100 mls/hr IV Q12 [facility] Last Infusion: 09/22/19 10:37 Dose: Infused Documented by: Sodium Chloride () 250 mls @ 15 mls/hr IV .[id number] PRN PRN Reason: Saline Flush Sodium Chloride () 250 mls @ 15 mls/hr IV .[id number] PRN PRN Reason: Additional IVPB Infusion Insulin Human Lispro (Humalog Kwikpen (Bkc)) 0 unit SC ACHS [facility]; Protocol Last Admin: 09/22/19 11:45 Dose: Not Given Documented by: Magnesium Hydroxide (Milk Of Magnesia) 30 ml PO DAILY PRN PRN PRN Reason: Constipation Melatonin (Melatonin) 3 mg PO QHS PRN PRN PRN Reason: INSOMNIA Metoprolol Succinate (Toprol Xl (Beta Agatha)) 25 mg PO DAILY [facility] Last Admin: 09/22/19 10:03 Dose: 25 mg Documented by: Morphine Sulfate (Ms Contin) 30 mg PO BID [facility] Last Admin: 09/22/19 10:02 Dose: 30 mg Documented by: Nutritional Formula (Lactose Free) (Glucerna Shake) 120 ml PO TIDCM [facility] Last Admin: 09/22/19 11:48 Dose: 120 ml Documented by: Ondansetron HCl (Zofran) 4 mg IV Q8H PRN PRN PRN Reason: NAUSEA/VOMITING Oxycodone HCl (Oxyir) 10 mg PO Q4H PRN PRN PRN Reason: Pain Score 4-5/10 Pantoprazole Sodium (Protonix) 20 mg PO BID [facility] Last Admin: 09/22/19 10:03 Dose: 20 mg Documented by: Prochlorperazine Edisylate (Compazine Iv) 5 mg IV Q4H PRN PRN PRN Reason: Breakthrough nausea/vomiting Psyllium Hydrophilic Mucilloid (Metamucil) 1 packet PO DAILY PRN PRN PRN Reason: Constipation Senna/Docusate Sodium (Senokot-S, Kiana-Colace) 2 tablet PO BID PRN PRN PRN Reason: Constipation Sodium Chloride () 10 - 40 ml IV UD PRN PRN Reason: SALINE FLUSH Throat Lozenges (Cepacol Sore Throat Lozenge) 1 lozenge MUCOUS MEM Q2H PRN PRN PRN Reason: SORE THROAT Tizanidine HCl (Zanaflex) 4 mg PO BID PRN PRN PRN Reason: MUSCLE SPASM STROKE Vital Signs/Narrative: Vital Signs Temp Pulse Resp BP Pulse Ox 09/22/19 10:03 78 09/22/19 10:00 98.3 F 78 16 116/57 L 97 Medical Necessity - Tobacco Use Smoking Status: Never smoker Tobacco Use: Non-smoker Assessment/Plan All Active Problems (Last Reviewed 04/08/19 @ 08:50 by Emi Keene) UTI (urinary tract infection) (Acute) JH (acute kidney injury) (Acute) Skin necrosis (Acute) Pressure injury of right perineal ischial region, unstageable (Acute) Pressure injury of left perineal ischial region, unstageable (Acute) Septic shock (Acute) Acute renal failure (Acute) Hyperkalemia (Acute) Sepsis (Acute) Panniculitis (Acute) JH (acute kidney injury) (Acute) Hyperkalemia (Acute) Hyponatremia (Acute) ARF (acute renal failure) (Resolved) Acute cystitis (Resolved) Decubitus ulcer of left ischium, stage 4 (Resolved) Hyperkalemia (Resolved) Hypoglycemia associated with type 2 diabetes mellitus (Resolved) Open wound of umbilical region (Resolved) Pressure sore of left ischium, unstageable (Resolved) Rhabdomyolysis (Resolved) Right ischial pressure sore, stage 2 (Resolved) Right ischial pressure sore, stage 3 (Resolved) Skin necrosis (Resolved) 1. UTI urine culture is pending. She however feels much better already on IV meropenem as previous urine cultures showed significant antibiotic resistance. blood cultures also pending. 2. JH on CKD stage III: Creatinine is down to 1.6 from 2.24. Baseline creatinine appears to be around 1.6.. continue gentle hydration with IVF and monitor 3. Chronic ischial wounds: wound care on board. 4. Hypertension: on metoprolol; 5. Type 2 diabetes mellitus: On insulin sliding scale. Accu-Cheks AC at bedtime. 6. Paroxysmal A. fib: On metoprolol. On Eliquis. 7. GERD: On pantoprazole 8. Super morbid obesity: BMI is 44. Complicates acute care, expected recovery and prognosis. 9. Pancytopenia White cell count today is 3.8 with hemoglobin of 9.3 and platelets of 120. Patient has chronic thrombocytopenia and chronic anemia. Leukopenia is new and may be due to acute medical condition. Will monitor. DVT prophylaxis:on eliquis Inpatient E&M: 41762 Subs Hosp L3
--- NOTE | 2019-09-22 16:57 | EKG12_ITS ---
Test Reason : RHY CHANGE Blood Pressure : / mmHG Vent. Rate : 074 BPM Atrial Rate : 074 BPM P-R Int : 222 ms QRS Dur : 090 ms QT Int : 366 ms P-R-T Axes : 042 -29 033 degrees QTc Int : 406 ms Sinus rhythm with 1st degree A-V block Otherwise normal ECG When compared with ECG of 22-SEP-2019 17:16, MANUAL COMPARISON REQUIRED, DATA IS UNCONFIRMED Confirmed by CIRILO FAGAN, DENISHA ([id number]), editor index YAO LORENZO ([id number] on 09/29/2019 3:51:37 PM Referred By: FOREIGN Confirmed By:DENISHA KERR MD
[2019-09-22] MEDS: Insulin Lispro 100 UNIT/ML INSULN.PEN SC (17:05)
[2019-09-22] MEDS: Juven (unflavored) Packet 1 PACKET PO (17:08)
[2019-09-22] MEDS: Metoprolol Tartrate 5 MG/5 ML Vial IV ×2 (18:08→18:50)
[2019-09-22 18:15] LABS: Bedside Glucose 166 mg/dL (70-110)
--- NOTE | 2019-09-22 18:38 | NURSING ---
Addendum entered by Luiza Vasquez 09/22/19 18:41: called sister Melinda and updated on pt transfer. Original Note: pt transported to U room 102 at 1739. [id number] report given to MARISELA Simms.
[2019-09-22 18:58] LABS: Magnesium 1.7 mg/dL (1.6-2.6); Potassium 3.8 mmol/L (3.5-5.1)
[2019-09-22] MEDS: 0.9% Saline Lock 10 ML Syringe IV (19:47)
[2019-09-22] MEDS: Adenosine 6 MG/2 ML Syringe IV (19:47)
--- NOTE | 2019-09-22 19:57 | CON.PCM_ITS ---
Problem List (1) SVT (supraventricular tachycardia) Status: Acute (2) Paroxysmal atrial fibrillation Status: Chronic (3) Hyperlipidemia Status: Chronic Qualifiers: Hyperlipidemia type: unspecified Qualified Code(s): E78.5 - Hyperlipidemia, unspecified (4) Essential (primary) hypertension Status: Chronic (5) Diabetes mellitus, type II Status: Chronic Qualifiers: Diabetes mellitus half-way insulin use: without half-way use Diabetes mellitus complication status: with other specified complication Qualified Code(s): E11.69 - Type 2 diabetes mellitus with other specified complication (6) UTI (urinary tract infection) Status: Acute Qualifiers: Urinary tract infection type: site unspecified (7) JH (acute kidney injury) Status: Acute (8) Morbid obesity Status: Chronic Reason for Consult Date of Consultation: 09/22/19 History of Present Illness: The patient is a 64 year old white female who is referred for evaluation of sinus tachycardia superimposed upon a history of paroxysmal atrial fibrillation, hyperlipidemia, hypertension, diabetes mellitus, and an underlying UTI and acute on chronic renal insufficiency. She has been undergoing evaluation care for UTI and acute on chronic renal insufficiency. During this time she has been reported as having episodes of sinus tachycardia. Based upon an elevated heart rate she was transitioned from the medical surgical floor to the PCU. Cardiology was consulted to evaluate the patient. The patient denies any ongoing episodes of classic angina pectoris. She states she has had no episodes of obvious orthopnea or PND. She notes no ongoing palpitations or rapid heart rate sensations herself even when her heart rate at her bedside monitor demonstrated heart rate of approximately 130 to 150 bpm. She has had no reports of near syncope or syncope. She states she has been diagnosed with atrial fibrillation in the past. She has been on medical management. This has included anticoagulant therapy with apixaban/Eliquis. She did have an ECG performed. It suggested sinus tachycardia with a first- degree AV block. She was subsequently treated by internal medicine with metoprolol 5 mg IV push x2. She continues with evidence of the underlying tachydysrhythmia. Cardiology was consulted to evaluate the patient. Upon further evaluation there were concerns that her underlying rhythm compatible with an underlying SVT shows an atrial tachycardia or atrial flutter potentially with a 2-1 AV block as well as poor R wave progression. Thus, after discussing the patient's case with her, it was recommended, to help identify the patient's underlying cardiac rhythm, to attempt adenosine 6 mg IV push x1. The procedure and risks were discussed with the patient. She was agreeable to this. This was performed. The patient was subsequently noted to have abrupt termination of her tachydysrhythmia to an underlying sinus mechanism with intermittent PVCs and subsequent sinus rhythm. She then subsequently returned to her SVT. Her response appeared to be compatible with an underlying reentry mechanism tachycardia. [] Past Medical History Allergies/Adverse Reactions: Allergies amoxicillin Adverse Reaction (Verified 06/15/19 15:33) Other latex Adverse Reaction (Verified 06/15/19 15:33) Other Home Medications: Ambulatory Orders Medication Instructions Recorded Citalopram [Celexa] 20 mg PO DAILY 07/10/16 Ascorbic Acid [Vitamin C] 500 mg PO DAILY 06/21/19 Multivit,Stress Formula/Zinc 1 ea PO DAILY 06/21/19 [Stress Formula with Zinc Tab] Alpha Lipoic Acid 600 mg PO DAILY 09/21/19 Apixaban [Eliquis] 5 mg PO BID 09/21/19 Famotidine [Pepcid] 20 mg PO BID 09/21/19 Gabapentin 600 mg PO QHS 09/21/19 Gabapentin [Neurontin] 300 mg PO DAILY 09/21/19 Metoprolol Succinate [Toprol Xl] 25 mg PO DAILY 09/21/19 Tizanidine HCl 4 mg PO BID PRN 09/21/19 Morphine Sulfate [Morphine Sulfate 30 mg PO BID 09/22/19 ER] Past Medical History (Chronic Problems): Chronic Problems (Last Reviewed 04/08/19 @ 08:50 by Emi Keene) CKD (chronic kidney disease), stage III (Chronic) Diabetes mellitus, type II (Chronic) Iron deficiency anemia (Chronic) GERD (gastroesophageal reflux disease) (Chronic) Anxiety and depression (Chronic) Chronic pain syndrome (Chronic) Morbid obesity (Chronic) Paroxysmal atrial fibrillation (Chronic) Essential (primary) hypertension (Chronic) Hyperlipidemia (Chronic) halfway (current) use of anticoagulants (Chronic) Eliquis for atrial fibrillation Abdominal panniculus (Chronic) Edema of abdominal wall (Chronic) Intertrigo (Chronic) abdominal wall skin crease intertrigo Panniculitis (Chronic) Surgical History: cholecystectomy, herniorrhaphy, - - Excision left ischial pressure sore into the muscle, Stage IV, and excision right ischial pressure sore into the subcutaneous tissue, Stage III, with 6 cm layered closure - 07/25/17 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, Depression [employer] 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[employer]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 [employer]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 Smoking Status: Never smoker Tobacco Use: Non-smoker Alcohol: None Drugs: None Review of Systems - Review of Systems General: Reports: Fatigue, Weakness. Denies: Fever, Night Sweats Cardiovascular: Denies: Chest Discomfort, Shortness of Breath, Orthopnea, PND, Peripheral Edema, Palpitations, Lightheadedness, Dizziness, Near Syncope, Syncope Respiratory: Denies: Cough, Sputum Production, Hemoptysis Gastrointestinal: Denies: Hematemesis, Hematochezia, Melena Genitourinary: Reports: Dysuria. Denies: Hematuria Skin: Denies: Rash Subjectve: This is a 64-year-old morbidly obese white female who appears to be resting comfortably in bed at this time in the supine position in no acute distress. Objective: Vital Signs Temp Pulse Resp BP Pulse Ox 98.7 F 135 H 13 118/57 L 95 09/22/19 19:48 09/22/19 19:48 09/22/19 19:48 09/22/19 19:48 09/22/19 19:48 Oxygen Delivery Method Room Air Weight: 237 lb 14.06 oz Body Mass Index (BMI) 44.9 Finger Stick Blood Glucose 236 Intake and Output for Last 24 Hours 09/20/19 09/21/19 09/22/19 23:59 23:59 23:59 Intake Total 1000 / 1000 2427.91 / 2427.91 Output Total 1200 / 1200 Balance 1000 / 1000 1227.91 / 1227.91 General: Awake, Alert, Oriented x 3, Cooperative, No Acute Distress, Obese HEENT: Atraumatic, Normocephalic, PERRL, EOMI, Sclera Non Icteric Oral: Moist Mucosa Neck: Supple, Good ROM, No JVD Lungs: Clear to auscultation Cardiovascular: Regular Rhythm, Normal S1, Normal S2 Vascular: No Carotid Bruits Abdomen: Bowel Sounds Present, Soft, Non Tender, Obese Extremities: No edema Psych/Mental Status: Appropriate 09/21/19 19:00: Sodium 137, Potassium 3.7, Chloride 103, Carbon Dioxide 29.0, Anion Gap 5, BUN 53 H, Creatinine 2.24 H, Est GFR (MDRD) Af Amer 28 L, Est GFR (MDRD) Non-Af 24 L, BUN/Creatinine Ratio 23.7 H, Glucose 146 H, Calcium 8.7, Total Bilirubin 0.40 09/21/19 19:00: Lactic Acid 0.9 09/21/19 19:00: Magnesium 2.1 09/21/19 19:00: Hemoglobin A1c 6.2 09/21/19 19:50: Urine Color Yellow, Urine Clarity Turbid, Urine pH 6.0, Ur Specific [place] 1.015, Urine Protein 100 H, Urine Glucose (UA) Normal, Urine Ketones Negative, Urine Occult Blood 150 H, Urine Nitrite Positive H, Urine Bilirubin Negative, Urine Urobilinogen Normal, Ur Leukocyte Esterase 500 H, Urine RBC 0 SEEN, Urine WBC >100 SEEN 09/22/19 07:10: WBC 3.8 L, RBC 3.25 L, Hgb 9.3 L, Hct 30.1 L, MCV 92.6, MCH 28.6, MCHC 30.9 L, Plt Count 120 L, MPV 10.2, Immature Gran % (Auto) 0.300, Neut % (Auto) 55.0, Lymph % (Auto) 28.0, [place] % (Auto) 13.5 H, Eos % (Auto) 2.9, Baso % (Auto) 0.3, Absolute Neuts (auto) 2.1, Nucleated RBC % 0 09/22/19 07:10: Sodium 140, Potassium 3.6, Chloride 105, Carbon Dioxide 28.0, Anion Gap 7, BUN 44 H, Creatinine 1.62 H, Est GFR (MDRD) Af Amer 41 L, Est GFR (MDRD) Non-Af 34 L, BUN/Creatinine Ratio 27.2 H, Glucose 84, Calcium 8.6 09/22/19 18:44: Potassium 3.8, Magnesium 1.7 Rhythm: As noted above EKG: As noted above ECHO: 12-23-2017 Interpretation Summary Normal LV size. Left ventricular systolic function is normal. The estimated ejection fraction is 60 %. The left atrium is moderately enlarged. The right atrium is mildly enlarged. Contrast injection was performed. CXR: No acute cardiopulmonary disease process reported: Please see official and complete report Assessment/Plan 1. Supraventricular tachycardia The patient demonstrated sustained narrow complex tachycardia. This did appear different from the underlying sinus rhythm that had been documented in the past. Based upon her response to IV adenosine it appears that she has an underlying supraventricular tachycardia compatible with a reentry mechanism. At the present time she will need to continue evaluation care of her underlying medical conditions which may assist with control of her tachydysrhythmia. However she can continue attempts at rate control therapy. This could be with agent such as beta-blockers or calcium channel antagonist. However she may need antiarrhythmic therapy which from an IV standpoint would include IV amiodarone. Ideally, at some point time in the future when she is clinically stable, it would not be unreasonable for the patient to be evaluated by electrophysiology for consideration for a possible EP study for possible radiofrequency ablation. 2. Paroxysmal atrial fibrillation The patient does have a history of paroxysmal atrial fibrillation. It appears she has been on beta-tristen therapy and anticoagulant therapy. Thus far she does not appear to have demonstrated recurrent episodes of her paroxysmal atrial fibrillation. 3. Hyperlipidemia She should continue medical management as deemed appropriate. 4. Hypertension Her blood pressure will be monitored and her medications can be adjusted as deemed appropriate taken into consideration her other clinical issues and her renal insufficiency. 5. Diabetes mellitus She will continue under evaluation care for internal medicine. 6. UTI She continues on antibiotic therapy. 7. Acute renal insufficiency She did appear to have evidence of acute renal insufficiency superimposed upon an element of chronic renal sufficiency. It appears this is improving with her ongoing medical management. 8. Morbid obesity Unfortunately the patient remains morbidly obese. She has been counseled by internal medicine in the past with respect to attempts at dietary therapy, etc., to bring her weight under better control. This note was generated using a voice recognition system and there may be incorrect words, spelling or punctuation that were not noted when reviewing the office note prior to saving.
[2019-09-22] MEDS: Metoprolol Tartrate 50 MG Tablet PO (20:47)
--- NOTE | 2019-09-22 21:39 | EKG12_ITS ---
Test Reason : RHYTHYM CHANGE Blood Pressure : / mmHG Vent. Rate : 148 BPM Atrial Rate : 148 BPM P-R Int : 264 ms QRS Dur : 084 ms QT Int : 308 ms P-R-T Axes : 000 -39 -53 degrees QTc Int : 483 ms Supraventricular tachycardia Left axis deviation Poor R wave progression Abnormal ECG Confirmed by ANGEL FAGAN, ROSA MARIA ([id number]), desk editor YAO LORENZO ([id number]) on 10/01/2019 2:56:11 PM Referred By: PHILLY Confirmed By:ROSA MARIA ORTIZ MD
[2019-09-22 22:31] LABS: Bedside Glucose 113 mg/dL (70-110)
[2019-09-23] VITALS (12 sets, daily range): BP systolic 104–121; BP diastolic 43–86; PULSE 63–72; RESP 12–16; TEMP 36.7–36.9; O2SAT 95–100
[2019-09-23] MEDS: 0.9% Normal Saline 1,000 ML 125 ML IV ×2 (04:33→14:18)
[2019-09-23 05:42] LABS: Absolute Lymphocyte Count 1.56 X10^3/uL (0.83-4.51); Absolute Neutrophil Count 2.3 X10^3/uL (2.0-7.7); Basophil# 0.02 X10^3/uL; Basophil% 0.4 % (0-1); Eosinophil# 0.14 X10^3/uL; Hematocrit 27.9 % (37-47); Hemoglobin 8.8 g/dL (12.0-15.0); Lymphocyte # 1.56 X10^3/ul (4.0); Lymphocyte % 33.1 % (19-41); Mean Corp Hgb Conc 31.5 g/dL (32-36); Mean Corpuscular Hgb 29.1 pg (27.0-32.0); Mean Corpuscular Volume 92.4 fL (81-99); Mean Platelet Vol. 9.9 fl (6.2-12.0); Monocyte# 0.66 X10^3/uL; NRBC Flagged by Analyzer 0 % (0-5); Neutrophil # 2.31 X10^3/uL (2.7-7.7); Neutrophil % 49.1 % (47-70); Platelet Count 135 K/mm3 (150-450); RBC Distribution Width CV 14.6 % (11.6-14.6); RBC Distribution Width SD 48.6 fl (35.1-43.9); Red Blood Count 3.02 M/mm3 (4.2-5.4); White Blood Count 4.7 K/mm3 (4.4-11.0)
[2019-09-23 05:55] LABS: Anion Gap 5 (5-15); BUN 33 mg/dL (7-18); BUN/Creat Ratio 28.9 RATIO (10-20); Calcium,Total 8.1 mg/dL (8.5-10.1); Chloride 111 mmol/L (98-107); Creatinine, Serum 1.14 mg/dL (0.55-1.02); EST Glomerular Filtration Rate 51 mL/min (>60); Est Glom Filt Rate - Afr Amer 62 mL/min (>60); Estimated Creatinine Clearance 38.61 ml/min; Glucose 91 mg/dL (74-106); Potassium 3.7 mmol/L (3.5-5.1); Sodium Level 143 mmol/L (136-145)
[2019-09-23 06:50] LABS: Bedside Glucose 100 mg/dL (70-110)
[2019-09-23] MEDS: Juven (unflavored) Packet 1 PACKET PO (08:06)
[2019-09-23] MEDS: Pantoprazole Sodium 20 MG Tablet PO (08:07)
[2019-09-23] MEDS: Ascorbic Acid 500 MG Tablet PO (08:07)
[2019-09-23] MEDS: Citalopram 20 MG Tablet PO (08:07)
[2019-09-23] MEDS: Gabapentin 300 MG Capsule PO (08:07)
[2019-09-23] MEDS: APIXABAN 5 MG TABLET PO (08:07)
[2019-09-23] MEDS: Glucerna Shake 120 ML LIQUID PO ×2 (08:11→11:45)
[2019-09-23] MEDS: Metoprolol Tartrate 50 MG Tablet PO (08:11)
--- NOTE | 2019-09-23 08:46 | PCM.PN.CARD ---
Subjectve: Patient seen and evaluated. Appears to be doing much better today. Objective: Vital Signs Temp Pulse Resp BP Pulse Ox 98.0 F 64 16 121/75 H 95 09/23/19 04:30 09/23/19 08:11 09/23/19 04:30 09/23/19 04:30 09/23/19 06:42 Oxygen Delivery Method Room Air Weight: 237 lb 14.06 oz Body Mass Index (BMI) 44.9 Finger Stick Blood Glucose 236 Intake and Output for Last 24 Hours 09/21/19 09/22/19 09/23/19 23:59 23:59 23:59 Intake Total 1000 / 1000 3487.91 / 3487.91 1725 / 1725 Output Total 1200 / 1200 950 / 950 Balance 1000 / 1000 2287.91 / 2287.91 775 / 775 General: Awake, Alert, Oriented x 3 HEENT: PERRL, EOMI, Sclera Non Icteric Neck: Supple, Good ROM, No Lymph Node Enlargement Lungs: Clear to auscultation Cardiovascular: Regular Rhythm, Normal S1, Normal S2, No Murmurs, No Rubs, No Gallops Vascular: No Carotid Bruits, Normal Femoral Pulses, Normal Radial Pulses, Normal Dorsalis Pedal Pulse, Normal Posterior Tibial Pulses Abdomen: Bowel Sounds Present, Soft, Non Tender, No HSM, No Organomegaly Extremities: No Cyanosis, No Clubbing, No edema Musculoskeletal: No Erythema Skin: No Rashes Lymphatic: No Lymph Node Enlargement Neurological: No Focal Motor or Sensory Deficit Psych/Mental Status: Appropriate 09/22/19 18:44: Potassium 3.8, Magnesium 1.7 09/23/19 05:08: WBC 4.7, RBC 3.02 L, Hgb 8.8 L, Hct 27.9 L, MCV 92.4, MCH 29.1, MCHC 31.5 L, Plt Count 135 L, MPV 9.9, Immature Gran % (Auto) 0.400, Neut % (Auto) 49.1, Lymph % (Auto) 33.1, [place] % (Auto) 14.0 H, Eos % (Auto) 3.0, Baso % (Auto) 0.4, Absolute Neuts (auto) 2.3, Nucleated RBC % 0 09/23/19 05:08: Sodium 143, Potassium 3.7, Chloride 111 H, Carbon Dioxide 27.0, Anion Gap 5, BUN 33 H, Creatinine 1.14 H, Est GFR (MDRD) Af Amer 62, Est GFR (MDRD) Non-Af 51 L, BUN/Creatinine Ratio 28.9 H, Glucose 91, Calcium 8.1 L Rhythm: EKG: ECHO: Stress Test: Cardiac Cath: PCI: CT Surgery: Holter monitor: EPS: PPM: CXR: Chest CT Scan: Medical Necessity - Tobacco Use Smoking Status: Never smoker Tobacco Use: Non-smoker Assessment/Plan 1. Supraventricular tachycardia The patient demonstrated sustained narrow complex tachycardia. Based upon her response to IV adenosine it appears that she has an underlying supraventricular tachycardia compatible with a reentry mechanism. At this time I would continue with the increased dose of the beta-tristen. Will monitor her symptoms as an outpatient. Depending on her course she may be referred for a possible EP evaluation with possible radiofrequency ablation. 2. Paroxysmal atrial fibrillation The patient does have a history of paroxysmal atrial fibrillation. She will continue on the beta-tristen at an increased dose as well as anticoagulant therapy. 3. Hyperlipidemia She should continue medical management as deemed appropriate. 4. Hypertension Her blood pressure will be monitored and her medications can be adjusted as deemed appropriate taken into consideration her other clinical issues and her renal insufficiency. From the cardiovascular standpoint her rhythm appears to be stable and she can be discharged and followed up as an outpatient.
--- NOTE | 2019-09-23 09:18 | EKG12_ITS ---
Test Reason : Blood Pressure : / mmHG Vent. Rate : 133 BPM Atrial Rate : 133 BPM P-R Int : 296 ms QRS Dur : 088 ms QT Int : 302 ms P-R-T Axes : -24 -37 -52 degrees QTc Int : 449 ms Supraventricular tachycardia Left axis deviation Anterolateral infarct , age undetermined , cannot be excluded Abnormal ECG Confirmed by ANGEL FAGAN, ROSA MARIA ([id number]), photographic editor YAO LORENZO ([id number] on 10/01/2019 3:14:29 PM Referred By: FOREIGN Confirmed By:ROSA MARIA ORTIZ MD
[2019-09-23] MEDS: Amiodarone 200 MG Tablet PO (11:45)
[2019-09-23 12:55] LABS: Bedside Glucose 100 mg/dL (70-110)
--- NOTE | 2019-09-23 15:22 | PCM.TXEXTCAR ---
- Diet 09/21/19 23:53 Diet: Calorie Controlled How many daily calories?: 1800 calorie - Routine Orders/Code Status Enema Type: Fleetz Enema Frequency: Daily PRN Suppository Type: Dulcolax 10mg Suppository Frequency: Daily PRN O2 Frequency: PRN Keep PO Greater than or Equal to (%): 90 - Wound(s) poncho gluteal folds Wound Type: Pressure Injury Coccyx Wound Type: Pressure Injury Dressing Change: AntiMicrobial (Aquacel AG, etc) Abd fold Wound Type: Open Surgical Wound left ischium Wound Type: Pressure Injury Dressing Change: AntiMicrobial (Aquacel AG, etc) right ischium Wound Type: Pressure Injury Dressing Change: AntiMicrobial (Aquacel AG, etc) left abdominal fold Wound Type: nonhealing wound Dressing Change: AntiMicrobial (Aquacel AG, etc) right abdominal fold Wound Type: nonhealing wound Dressing Change: Packed with Iodoform - Allergies/Procedures Done in Hospital Allergies/Adverse Reactions: Allergies amoxicillin Adverse Reaction (Verified 06/15/19 15:33) Other latex Adverse Reaction (Verified 06/15/19 15:33) Other Procedures: None - Type of Care/Length of Stay Estimated LOS: More Than 30 Days Type of Care Needed: Skilled Rehab Potential: Fair Prognosis: Fair - Additional Orders/Day of Discharge Day of Discharge: 09/23/19 - Dietary and Speech Recommendations Dietitian Recommendations/Changes: Will add Bernard BID for wounds. Continue 1800 calorie controlled diet. - Follow Up Care Primary Care Physician: Brittany Sorenson MD [Primary Care Provider] - Please follow up with your Primary Care Physician in: 1-2 weeks
--- NOTE | 2019-09-23 15:23 | PCM.DC.SUM ---
Discharge Date and Diagnosis - Problem List Patient Problems: Active and Suspected Problems (Last Reviewed 04/08/19 @ 08:50 by Emi Keene) UTI (urinary tract infection) (Acute) JH (acute kidney injury) (Acute) SVT (supraventricular tachycardia) (Acute) Date of Admission: 09/21/19 Date of Discharge: 09/23/19 - Primary Discharge Diagnosis Acute Problems: Active Problems (Last Reviewed 04/08/19 @ 08:50 by Emi Keene) UTI (urinary tract infection) (Acute) JH (acute kidney injury) (Acute) SVT (supraventricular tachycardia) (Acute) - Secondary Discharge Diagnosis Chronic Problems: Chronic Problems (Last Reviewed 04/08/19 @ 08:50 by Emi Keene) CKD (chronic kidney disease), stage III (Chronic) Diabetes mellitus, type II (Chronic) Iron deficiency anemia (Chronic) GERD (gastroesophageal reflux disease) (Chronic) Anxiety and depression (Chronic) Chronic pain syndrome (Chronic) Morbid obesity (Chronic) Paroxysmal atrial fibrillation (Chronic) Essential (primary) hypertension (Chronic) Hyperlipidemia (Chronic) 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 No demonstrated acute cardiopulmonary process. 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 Blood cultures were ordered. Chest x-ray showed no acute cardiopulmonary findings. She was admitted and managed for UTI. She was started on meropenem on account of previous with an extensive past medical history as outlined was admitted through the ED on 09/21/2019 from her assisted living facility with a complaint of worsening fatigue, weakness and dysuria with chills for 3 days prior to admission. She had no associated fever although. UA done in the assisted living facility showed evidence of UTI. UA done on admission showed evidence of UTI with 500 leukocyte esterase and positive nitrites. Chest x-ray done showed no acute cardiopulmonary process. She was admitted and managed for UTI. She was started on IV meropenem on account of previous bugs growing the urine be resistant to multiple antibiotics. Urine culture eventually grew Proteus which was sensitive to ceftriaxone. Of note, patient stay was complicated by tachycardia. Initially appeared a sinus tachycardia per EKG and did not respond to IV Lopressor. Cardiology was consulted as heart rate was persistently in the 130s to 140s. Per review, patient was diagnosed with supraventricular tachycardia with reentrant rhythm. She converted to sinus rhythm with administration of IV adenosine. Patient remained stable and his symptoms resolved. On day of discharge, she again went into SVT but converted spontaneously to normal sinus rhythm. She was started on p.o. amiodarone 200 mg twice daily by cardiology. She was discharged back to her skilled nursing on 09/23/2019. She is to take Omnicef 300 mg twice daily for 5 days. She was also discharged with a prescription for p.o. amiodarone 200 mg twice daily for 2 weeks, till October 06, 2019. She is to continue on October 07, 2019 with 200 mg daily of amiodarone. She is to follow-up with her primary care doctor and follow-up with cardiology. Patient seen and examined prior to discharge. She had no complaints and wanted to be discharged. Review of systems otherwise negative. Labs and vitals reviewed. Home medication reviewed and reconciled. o/e: Vital Signs Temp Pulse Resp BP Pulse Ox 98.0 F 66 16 104/43 L 100 09/23/19 11:40 09/23/19 15:00 09/23/19 11:40 09/23/19 11:40 09/23/19 11:40 [] General: Alert, Oriented x3, Cooperative, No apparent distress HEENT: Atraumatic, PERRLA, EOMI, Normocephalic Oral: Dry Mucosa Neck: Supple, No JVD, Negative Carotid Bruits Lungs: Clear to auscultation, Normal air movement, No rhonchi, No wheeze Cardiovascular: Regular rate, Regular Rhythm, Normal S1, Normal S2, No murmurs Abdomen: Bowel Sounds Present, Soft, Non Tender, Non-Distended, No Hepato-splenomegaly Extremities: No clubbing, No cyanosis, No edema, Capillary Refill Less than 3 Seconds Skin: No rashes, No breakdown Musculoskeletal: No Tenderness to Palpation of Joints or Extremities Lymphatic: No Cervical, Supraclavicular, or Inguinal Adenopathy Neurological: Cranial nerves II-XII grossly intact, Neuro grossly intact, Motor Exam 5/5 strength throughout Psych/Mental Status: Normal Affect, Appropriate, Alert and oriented to time, place, person, mood and affect Plan as above. Patient Problems: Active and Suspected Problems (Last Reviewed 04/08/19 @ 08:50 by Emi Keene) UTI (urinary tract infection) (Acute) JH (acute kidney injury) (Acute) SVT (supraventricular tachycardia) (Acute) - Physical Exam Vitals/I&O's: Vital Signs Temp Pulse Resp BP Pulse Ox 98.0 F 66 16 104/43 L 100 09/23/19 11:40 09/23/19 15:00 09/23/19 11:40 09/23/19 11:40 09/23/19 11:40 Oxygen Delivery Method Room Air Weight: 237 lb 14.06 oz Body Mass Index (BMI) 44.9 Finger Stick Blood Glucose 236 Intake and Output for Last 24 Hours 09/21/19 09/22/19 09/23/19 23:59 23:59 23:59 Intake Total 1000 / 1000 3487.91 / 3487.91 3264.59 / 3264.59 Output Total 1200 / 1200 1400 / 1400 Balance 1000 / 1000 2287.91 / 2287.91 1864.59 / 1864.59 Microbiology Past 72 Hours 09/21/19 19:50 Urine, Catheterized Urine Culture - Final Proteus mirabilis Laboratory Results 09/22/19 17:02: POC Glucose 166 H 09/22/19 18:44: Potassium 3.8, Magnesium 1.7 09/22/19 22:15: POC Glucose 113 H 09/23/19 05:08: WBC 4.7, RBC 3.02 L, Hgb 8.8 L, Hct 27.9 L, MCV 92.4, MCH 29.1, MCHC 31.5 L, RDW Std Deviation 48.6 H, RDW Coeff of Radha 14.6, Plt Count 135 L, MPV 9.9, Immature Gran % (Auto) 0.400, Neut % (Auto) 49.1, Lymph % (Auto) 33.1, [place] % (Auto) 14.0 H, Eos % (Auto) 3.0, Baso % (Auto) 0.4, Absolute Neuts (auto) 2.3, Absolute Lymphs (auto) 1.56, Nucleated RBC % 0 09/23/19 05:08: Sodium 143, Potassium 3.7, Chloride 111 H, Carbon Dioxide 27.0, Anion Gap 5, BUN 33 H, Creatinine 1.14 H, Estim Creat Clear Calc 38.61, Est GFR (MDRD) Af Amer 62, Est GFR (MDRD) Non-Af 51 L, BUN/Creatinine Ratio 28.9 H, Glucose 91, Calcium 8.1 L 09/23/19 06:43: POC Glucose 100 09/23/19 11:39: POC Glucose 100 Diagnostic Data Chest X-Ray 09/21/19 18:50 IMPRESSION: Degenerative changes, as described above. No demonstrated acute cardiopulmonary process. Electronically Signed: Jordan Pierre MD at 19:19 EDT , Service support , Current Medications Acetaminophen (Tylenol) 650 mg PO Q6H PRN PRN PRN Reason: Pain Score 1-10/Temp > 100.7 F Al Hydroxide/Mg Hydroxide (Mylanta Ii) 30 ml PO Q6H PRN PRN PRN Reason: Gastric Burning Albuterol Sulfate (Ventolin Aerosols) 2.5 mg INHALATION Q2H PRN PRN PRN Reason: Dyspnea, wheezing Amiodarone HCl (Cordarone) 200 mg PO BID [facility] Last Admin: 09/23/19 11:45 Dose: 200 mg Documented by: Apixaban (Eliquis) 5 mg PO BID [facility] Last Admin: 09/23/19 08:07 Dose: 5 mg Documented by: Ascorbic Acid (Vitamin C) 500 mg PO DAILY [facility] Last Admin: 09/23/19 08:07 Dose: 500 mg Documented by: Citalopram Hydrobromide (Celexa) 20 mg PO DAILY [facility] Last Admin: 09/23/19 08:07 Dose: 20 mg Documented by: Dextrose (D50w Syringe) 0 gm IV X1 PRN; Protocol PRN Reason: Hypoglycemia Gabapentin (Neurontin) 300 mg PO DAILY [facility] Last Admin: 09/23/19 08:07 Dose: 300 mg Documented by: Gabapentin (Neurontin) 600 mg PO QHS [facility] Last Admin: 09/22/19 22:19 Dose: 600 mg Documented by: Glucagon () 1 mg IM .X1 PRN PRN Reason: Hypoglycemia Guaifenesin (Robitussin) 20 ml PO Q4H PRN PRN PRN Reason: COUGH Hydralazine HCl (Apresoline Iv) 10 mg IV Q4H PRN PRN PRN Reason: SBP > 160 Hydromorphone HCl (Dilaudid Inj) 1 mg IV Q4H PRN PRN PRN Reason: Pain Score 6-10/10 Sodium Chloride () 1,000 mls @ 125 mls/hr IV .Q8H [facility] Last Admin: 09/23/19 14:18 Dose: 125 mls/hr Documented by: Sodium Chloride () 250 mls @ 15 mls/hr IV .[id number] PRN PRN Reason: Saline Flush Sodium Chloride () 250 mls @ 15 mls/hr IV .[id number] PRN PRN Reason: Additional IVPB Infusion Meropenem 1 gm/ Sodium (Chloride) 100 mls @ 33 mls/hr IV Q12 [facility] Last Infusion: 09/23/19 13:04 Dose: Infused Documented by: Insulin Human Lispro (Humalog Kwikpen (Bkc)) [facility]; Protocol Last Admin: 09/23/19 11:45 Dose: Not Given Documented by: Magnesium Hydroxide (Milk Of Magnesia) 30 ml PO DAILY PRN PRN PRN Reason: Constipation Melatonin (Melatonin) 3 mg PO QHS PRN PRN PRN Reason: INSOMNIA Metoprolol Tartrate (Lopressor (Beta Agatha)) 50 mg PO BID [facility] Last Admin: 09/23/19 08:11 Dose: 50 mg Documented by: Morphine Sulfate (Ms Contin) 30 mg PO BID [facility] Last Admin: 09/23/19 08:12 Dose: 30 mg Documented by: Nutritional Formula (Lactose Free) (Glucerna Shake) 120 ml PO TIDCM [facility] Last Admin: 09/23/19 11:45 Dose: 120 ml Documented by: Ondansetron HCl (Zofran) 4 mg IV Q8H PRN PRN PRN Reason: NAUSEA/VOMITING Oxycodone HCl (Oxyir) 10 mg PO Q4H PRN PRN PRN Reason: Pain Score 4-5/10 Pantoprazole Sodium (Protonix) 20 mg PO BID [facility] Last Admin: 09/23/19 08:07 Dose: 20 mg Documented by: Prochlorperazine Edisylate (Compazine Iv) 5 mg IV Q4H PRN PRN PRN Reason: Breakthrough nausea/vomiting Psyllium Hydrophilic Mucilloid (Metamucil) 1 packet PO DAILY PRN PRN PRN Reason: Constipation Senna/Docusate Sodium (Senokot-S, Kiana-Colace) 2 tablet PO BID PRN PRN PRN Reason: Constipation Sodium Chloride () 10 - 40 ml IV UD PRN PRN Reason: SALINE FLUSH Last Admin: 09/22/19 19:47 Dose: 40 ml Documented by: Throat Lozenges (Cepacol Sore Throat Lozenge) 1 lozenge MUCOUS MEM Q2H PRN PRN PRN Reason: SORE THROAT Tizanidine HCl (Zanaflex) 4 mg PO BID PRN PRN PRN Reason: MUSCLE SPASM Discharge Diet: Low fat/ Low Cholesterol Discharge Activity: Return to Normal Activity Weight Bearing Status: Weight bearing as tolerated Call your doctor if you observe: Fever of 101 or Higher, Shortness of breath, Dizziness, Increased palpitations (irregular heartbeat) Home Medications: Medications to take at Discharge Citalopram [Celexa] 20 mg PO DAILY 07/10/16 Ascorbic Acid [Vitamin C] 500 mg PO DAILY 06/21/19 Multivit,Stress Formula/Zinc [Stress Formula with Zinc Tab] 1 ea PO DAILY 06/21/19 Alpha Lipoic Acid 600 mg PO DAILY 09/21/19 Apixaban [Eliquis] 5 mg PO BID 09/21/19 Famotidine [Pepcid] 20 mg PO BID 09/21/19 Gabapentin 600 mg PO QHS 09/21/19 Gabapentin [Neurontin] 300 mg PO DAILY 09/21/19 Tizanidine HCl 4 mg PO BID PRN 09/21/19 Morphine Sulfate [Morphine Sulfate ER] 30 mg PO BID 09/22/19 Amiodarone HCl [Cordarone] 200 mg PO UD #60 tab 09/23/19 Cefdinir [Omnicef [equiv]] 300 mg PO Q12H #10 cap 09/23/19 Metoprolol Tartrate [Lopressor (beta agatha)] 50 mg PO BID #60 tab 09/23/19 Following Prescrptions Were Given to Patient: Amiodarone HCl [Cordarone] 200 mg PO UD #60 tab Prescription Printed Metoprolol Tartrate [Lopressor (beta agatha)] 50 mg PO BID #60 tab Prescription Printed Cefdinir [Omnicef [equiv]] 300 mg PO Q12H #10 cap Prescription Printed Primary Care Physician: Brittany Sorenson MD [Primary Care Provider] - Please follow up with your Primary Care Physician in: 1-2 weeks Please Follow Up With: Dariel Castro MD When: 1-2 weeks Dis[facility] Minutes spent on discharge:: 40 Patient Condition:: Stable Medical Necessity - Tobacco Use Smoking Status: Never smoker Tobacco Use: Non-smoker Meaningful Use Info Meaningful Use Diagnoses (Choose all that apply): None applicable Inpatient E&M: 28630 Disch Hosp
--- NOTE | 2019-09-23 16:17 | CASEMGMT ---
Physician is going to discharge patient back to [facility]. SW notified Cely at [facility]. Faxed d/c instructions to [facility]. SW called [facility] and arranged for patient to get picked up at via cot. SW notified patient, [facility], and RN. Patient did not need SW to call any family for her. plan: d/c back to [facility] under intermediate level of care. [facility] transported patient via cot. Kassy ZAMORANO MSW
--- NOTE | 2019-09-23 16:30 | NURSING ---
report called to Cely ANTONIO at [facility]
--- NOTE | 2019-09-23 16:44 | CASEMGMT ---
MARISELA LOVE NOTE: Ludin Preston CM, was made aware pt is being discharged back to [facility] today. Discharge summary and instructions faxed to Kary Noland CM, @ this time @ [phone] per her request. Bennie WERNERN MARISELA CM
== END 2019-09-23 16:58 | disposition skilled nursing facility (03) | DRG 689 ==
LOC: ED 19:18 → MS3 22:17 → PCU 09-22 19:49
PROVIDERS: Admitting Provider Family Medicine; Emergency Provider Emergency Medicine; PCP Internal Medicine; Visit Provider Student in an Organized Health Care Education/Training Program
DX: N39.0 Urinary tract infection, site not specified (principal); L89.313 Pressure ulcer of right buttock, stage 3; L89.324 Pressure ulcer of left buttock, stage 4; N17.9 Acute kidney failure, unspecified; I47.1 Supraventricular tachycardia; Z68.42 Body mass index [BMI] 45.0-49.9, adult; D61.818 Other pancytopenia; B96.4 Proteus (mirabilis) (morganii) as the cause of diseases classified elsewhere; L89.312 Pressure ulcer of right buttock, stage 2; E86.0 Dehydration; I12.9 Hypertensive chronic kidney disease with stage 1 through stage 4 chronic kidney disease, or unspecified chronic kidney disease; N18.3 Chronic kidney disease, stage 3 (moderate); E78.5 Hyperlipidemia, unspecified; F32.9 Major depressive disorder, single episode, unspecified; F41.9 Anxiety disorder, unspecified; D50.9 Iron deficiency anemia, unspecified; K21.9 Gastro-esophageal reflux disease without esophagitis; Z79.01 Long term (current) use of anticoagulants; M79.3 Panniculitis, unspecified; I48.0 Paroxysmal atrial fibrillation; E66.01 Morbid (severe) obesity due to excess calories; E11.22 Type 2 diabetes mellitus with diabetic chronic kidney disease; L30.4 Erythema intertrigo; Z90.49 Acquired absence of other specified parts of digestive tract; Z79.4 Long term (current) use of insulin; Z82.49 Family history of ischemic heart disease and other diseases of the circulatory system; Z83.3 Family history of diabetes mellitus; Z99.3 Dependence on wheelchair; G89.4 Chronic pain syndrome; Z79.899 Other long term (current) drug therapy
CPT/HCPCS: 36415; 71045; 80048; 80053; 81001; 82962; 83036; 83605; 83735; 84132; 85025; 85610; 85730; 87040; 87077; 87086; 87088; 87186; 93005; 96360; 97110; 97162; 97165; 97530; 97802; 99251; 99285; J2185; J7030; J7050; A4216; G0463; J0153

== ENCOUNTER 2024-12-09 17:50 | Emergency (ER) | payer MEDICARE, MEDICAID, SELFPAY ==
[2024-12-09 17:50] VITALS: BP 135/115; PULSE 88; RESP 16; TEMP 36.3; O2SAT 98; BMI 42.5
--- NOTE | 2024-12-09 17:55 | ED.RN ---
Pt arrived via ems and during transfer of pt from cot to bed pt hit at and scratched at staff and paramedics. Pt demanded to be changed out of dirty brief but attempts to move pt and place in gown and out of dirty clothing led to pt yelling at staff don't fucking touch me! and pt continuing to hit and scratch at staff. Pt states that she hasn't been changed since this morning and that you're all bitches that don't know what you're doing! This RN educated pt that she was at the hospital now and not at her facility and that staff here were attempting to help her. Pt states I know that I'm at [facility] you idiot! Pt continues to pull at vital signs cords as attempts to check vitals were made and mitts were placed on pt's hands. Pt continues to demand to be cleaned up. Staff removed old bedding and linens from facility, changed pt brief and used cleansing wipes for marco care. Pt was oppositional to care and fought staff during this process. Ongoing education provided to assure pt that staff was trying to help her. Pt not agreeable.
--- NOTE | 2024-12-09 18:10 | ED.RN ---
Pt educated on need to obtain blood samples for laboratory testing. Pt states you get one chance you dumb bitch! While attempts to obtain blood via straight stick pt would pull her arm and attempt to hit staff. Multiple attempts to obtain blood were necessary d/t this behavior which resulted in blown veins that wouldn't provide blood. Pt educated that her behavior was causing the ongoing attempts. Pt yelled at staff about their ineptitude with vulgarity and obscenities. Redirection and therapeutic talk with patient not effective.
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
[2024-12-09 18:30] LABS: Hematocrit 32.1 % (37-47); Hemoglobin 10.2 g/dL (12.0-15.0); Immature Granulocytes Count 0.060 X10^3/uL (0.0-0.0); Mean Corp Hgb Conc 31.8 g/dL (32-36); Mean Corpuscular Volume 100.0 fL (81-99); Mean Platelet Vol. 9.9 fl (6.2-12.0); NRBC Flagged by Analyzer 0 % (0-5); Platelet Count 139 K/mm3 (150-450); RBC Distribution Width CV 15.9 % (11.6-14.6); RBC Distribution Width SD 58.1 fl (35.1-43.9); Red Blood Count 3.21 M/mm3 (4.2-5.4); White Blood Count 10.0 K/mm3 (4.4-11.0)
[2024-12-09 18:36] LABS: Anion Gap 10 (5-15); BUN 30 mg/dL (4-19); BUN/Creat Ratio 30.3 RATIO (10-20); Calcium,Total 9.4 mg/dL (7.6-11.0); Carbon Dioxide 20.9 mmol/L (21.0-32.0); Chloride 105 mmol/L (98-108); Estimated Creatinine Clearance 77.56 ml/min (50-250); Glucose 143 mg/dL (70-99); Potassium 4.9 mmol/L (3.3-5.1)
[2024-12-09 18:50] VITALS: BP 107/71; PULSE 97; RESP 18; O2SAT 97
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
[2024-12-09 19:17] LABS: Barbiturate Urine NEGATIVE (< 200 ng/mL); Benzodiazepine Urine NEGATIVE (< 200 ng/mL); PCP Urine NEGATIVE (< 25 ng/mL); THC Urine NEGATIVE (< 50 ng/mL)
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
[2024-12-09 19:39] LABS: Alcohol, Blood (Medical)-Serum < 10.1 mg/dL (<=10.0)
--- NOTE | 2024-12-09 19:43 | CM.ED ---
Social Work SW contacted the following [facility]: [facility]: will not accept due to patient requiring ADL assistance [facility] : no beds available on [facility] [place]: Will not accept due to patient requiring ADL assistance [facility]: no beds available on [facility] [place]: Does have open beds and will review patient. Referral sent. KINJAL also contacted [facility] for handoff, paperwork faxed over to Gur[facility]. Rochelle Shahid, AUTOMATION DEVELOPER, BODY HANGER
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
[2024-12-09 19:46] LABS: Mucous, Urine 0 SEEN /hpf (<or=2+); Red Blood Cells-Urine 0 SEEN /hpf (0-5)
[2024-12-09 19:59] LABS: Color, Urine Yellow (Yellow); Glucose, Dipstick Normal (Normal); Ketone-Dipstick Negative (Negative); Leukocyte Esterase-Dipstick 25 /ul (Negative); Nitrite-Dipstick Positive (Negative); Occult Blood-Urine 25 /ul (Negative); Protein-Dipstick 30 mg/dl (Negative); Specific Gravity, Urine 1.020 (1.002-1.030); Urine Bilirubin Dipstick Negative (Negative)
[2024-12-09 20:05] LABS: Squamous Epithelial Cells - UA 5-10 SEEN /hpf (5-10)
[2024-12-09] MEDS: Lorazepam 2 MG/ML WCH Syringe 1 MG IM (20:23)
--- NOTE | 2024-12-09 20:28 | ED.RN ---
Pt in room yelling for nurse. This nurse to room to assist, when pt asked what she needed, pt states you know what I want you piss ant. Pt continues to yell nurse but will not tell nurse what she needs, she continues to verbally abuse staff by name calling and making degrading comments to staff. Attempted to redirect and meet needs, unsuccessful. Verbal orders obtained from Dr Oquendo and medication administered by Doris Menard RN with this nurse and security at bedside.
--- NOTE | 2024-12-09 23:00 | ED.RN ---
Pt called RN into room, Are you going to change my brief or not? Rn informed pt that she would be happy to provide care, if pt agrees to not harm staff. Pt replies Oh you big baby it's just a couple scratches RN informed pt that staff would be more than happy to assist with care, but only if pt agrees to allow staff to properly care for pt and not harm anyone. Pt laughed and called musical performer once again. RN out of room, pt continues to call out for RN. RN back into room to assist with pt needs. RN asked pt how RN could assist her. Pt replies How many times do I have to ask you to change this brief RN again explains that staff would be more than happy to assist pt with cleaning and changing brief, but only if pt agrees not to harm staff. Pt replies Oh grow up it's just a few scratches Pt then states that she will take own brief off and throw it at the door if RN does not help pt with changing her brief. Once again explained to pt that staff would be more than happy to assist with care if pt agrees not to harm staff. pt laughs and states well you'll be cleaning it all up anyway won't you? RN informed pt that she is to let this RN know when she is ready to have brief changed.
[2024-12-09 23:02] VITALS: PULSE 81; RESP 22; O2SAT 97
--- NOTE | 2024-12-10 00:12 | ED.RN ---
PT WAS CLEANED WITH BATH WIPES TO THE BEST OF RN ABILITY BEFORE TAKEN TO [facility]. Ubaldo COLINDRES RN, Rodri BENNETT RN, JESUS ELLIS INTO ROOM FOR ASSISTANCE. PT YELLING AT STAFF, STATING MULTIPLE PEOPLE ARE NOT NEEDED TO CLEAN PT. INFORMED PT THAT MULTIPLE STAFF MEMBERS ARE NEEDED TO PREVENT INJURY TO STAFF.
[2024-12-10 00:13] VITALS: BP 107/90; PULSE 88; RESP 16; TEMP 36.6; O2SAT 100
--- NOTE | 2024-12-10 10:30 | CM.ED ---
Social Work SW contacted patients sister per request to let her know where patient was transferred. Sister thanked SW for the information and assistance with patient. No further needs identified at this time. Rochelle Shahid, WOOD HEEL ATTACHER, CORRECTIONS LIEUTENANT
== END 2024-12-09 23:58 ==
PROVIDERS: Emergency Provider Emergency Medicine; PCP Internal Medicine; Visit Provider Emergency Medicine
DX: F32.A Depression, unspecified (principal); E11.40 Type 2 diabetes mellitus with diabetic neuropathy, unspecified; E11.65 Type 2 diabetes mellitus with hyperglycemia; N39.0 Urinary tract infection, site not specified; E78.5 Hyperlipidemia, unspecified; R45.851 Suicidal ideations; I10 Essential (primary) hypertension; D53.9 Nutritional anemia, unspecified; Z79.899 Other long term (current) drug therapy
CPT/HCPCS: 80048; 80307; 81001; 82077; 85025; 87077; 87086; 87088; 87186; 96372; 99285

== ENCOUNTER → 2025-01-08 | Outpatient (CLI) | payer MEDICARE, MEDICAID, SELFPAY ==
--- NOTE | 2025-01-08 08:38 | US_ITS ---
PROCEDURE: TRANSVAGINAL NON- 01/08/2025 REASON FOR EXAM: POST MENOPAUSAL VAGINAL BLEEDING TECHNIQUE: Procedure Code: USTVAG Modality: US Procedure: TRANSVAGINAL NON- COMPARISON: None FINDINGS: Limited evaluation due to patient's body habitus. Measurements: Uterus: 6.5 cm x 3 cm x 2.9 cm with a volume of 29.41 mL Endometrial Thickness: Not visualized. Right Ovary: Nonvisualized. Left Ovary: Not visualized. Uterus: Normal size, myometrial echotexture, and contour. Endometrium: Not visualized. Right ovary: Not visualized. Left ovary: Not visualized. Other: No large pelvic mass identified. US/Transvaginal Non- IMPRESSION: Limited examination. Reading Location: [id number]
== END | disposition home or self-care (01) ==
LOC: US 08:36
PROVIDERS: PCP Internal Medicine; Referring Provider Nurse Practitioner Family; Visit Provider Nurse Practitioner Family
DX: N95.0 Postmenopausal bleeding (principal)
CPT/HCPCS: 76830

== ENCOUNTER 2025-01-11 18:44 | Inpatient (IN) | payer MEDICARE, MEDICAID, SELFPAY ==
[2025-01-11] VITALS (8 sets, daily range): BP systolic 65–103; BP diastolic 32–80; PULSE 54–59; RESP 15–22; TEMP 36.4–36.5; O2SAT 94–98; BMI 44.5
[2025-01-11] MEDS: 0.9% Normal Saline (1000mL) 1,000 ML 999 ML IV (19:55)
[2025-01-11 20:26] LABS: Hematocrit 25.7 % (37-47); Hemoglobin 7.9 g/dL (12.0-15.0); Immature Granulocytes Count 0.060 X10^3/uL (0.0-0.0); Mean Corp Hgb Conc 30.7 g/dL (32-36); Mean Corpuscular Volume 103.2 fL (81-99); Mean Platelet Vol. 10.7 fl (6.2-12.0); NRBC Flagged by Analyzer 0.2 % (0-5); POSITIVE MORPHOLOGY YES; Platelet Count 120 K/mm3 (150-450); RBC Distribution Width CV 17.3 % (11.6-14.6); RBC Distribution Width SD 65.4 fl (35.1-43.9); Red Blood Count 2.49 M/mm3 (4.2-5.4); White Blood Count 9.1 K/mm3 (4.4-11.0)
[2025-01-11 20:31] LABS: Lipase 68 U/L (13-75)
[2025-01-11 20:32] LABS: AST(SGOT) 181 U/L (<=31); Alanine Aminotransfer ALT/SGPT 57 U/L (<=34); Albumin, Serum 1.7 g/dL (3.4-4.8); Alkaline Phosphatase 209 U/L (35-104); Anion Gap 11 (5-15); BUN 92 mg/dL (4-19); BUN/Creat Ratio 28.9 RATIO (10-20); Calcium,Total 8.7 mg/dL (7.6-11.0); Carbon Dioxide 16.3 mmol/L (21.0-32.0); Chloride 109 mmol/L (98-108); Estimated Creatinine Clearance 24.72 ml/min (50-250); Globulin 5.2 g/dL (2.2-4.2); Glucose 99 mg/dL (70-99); Potassium 5.7 mmol/L (3.3-5.1)
[2025-01-11 20:34] LABS: Differential Indicated SCAN CRITERIA MET
--- NOTE | 2025-01-11 20:40 | EX.ED.DYSGE1 ---
HPI History of Present Illness Chief Complaint: Abn Labs Narrative Narrative: Patient is a 69-year-old female past medical history of paroxysmal atrial fibrillation, hypertension, chronic kidney disease, type 2 diabetes, thrombocytopenia, anemia who presents to the emergency department the chief complaint of abnormal blood work. She states that she has been short of breath for the past few days and she had blood work obtained today and notes that this was abnormal therefore they sent her here. States that her stools have been darker but notes that they have been giving her iron supplementation at the facility as well. [facility] Medical History (Updated 01/11/25 @ 23:[address] Issa Solomon, DO) Normochromic normocytic anemia Paroxysmal atrial fibrillation Essential (primary) hypertension Difficulty balancing when standing Excessive weight loss Late effect of medical and surgical care complication Abdominal wall pain in both lower quadrants Edema of abdominal wall Intertrigo Panniculitis Rupture of hernia Neuropathy Kidney failure Breast lump in female History of blood transfusion UTI (urinary tract infection) Back problem Arthritis Panniculitis Pressure sore of left ischium, unstageable Right ischial pressure sore, stage 2 Pressure ulcer Osteoarthritis Depression Umbilical hernia Anemia Thrombocytopenia Atrial fibrillation with rapid ventricular response (12/2017) Abdominal panniculus Hyperlipidemia Morbid obesity Type 2 diabetes mellitus Home Medications ?Medication ?Instructions ?Recorded ?Last Taken ?Type alpha lipoic acid 300 mg capsule 600 mg PO DAILY neuropathy 09/21/19 12/09/24 History metoprolol tartrate 50 mg tablet 50 mg PO BID #60 tabs 09/23/19 12/09/24 Rx acetaminophen 500 mg capsule 1,000 mg PO Q8H PRN pain 12/09/24 11/16/24 History amiodarone 200 mg tablet 200 mg PO DAILY 12/09/24 12/09/24 History ferrous sulfate 325 mg (65 mg 325 mg PO DAILY 12/09/24 12/09/24 History iron) tablet (FeroSul) magnesium hydroxide 400 mg/5 mL 30 ml PO DAILY PRN constipation 12/09/24 12/07/24 History oral suspension (Milk of Magnesia) mirabegron 25 mg tablet,extended 25 mg PO DAILY 12/09/24 12/09/24 History release 24 hr (Myrbetriq) polyethylene glycol 3350 17 17 g PO DAILY 12/09/24 08/22/24 History gram/dose oral powder (Gavilax) sennosides 8.6 mg-docusate sodium 2 tab-cap PO QHS 12/09/24 12/02/24 History 50 mg tablet (Senna with Docusate Sodium) sitagliptin phosphate 100 mg 100 mg PO DAILY 12/09/24 12/09/24 History tablet (Januvia) folic acid-vit B6-vit B12 0.8 1 tab PO DAILY 01/11/25 Unknown History mg-10 mg-115 mcg tablet (Foltabs 800) mirtazapine 15 mg tablet 15 mg PO QHS 01/11/25 Unknown History rivastigmine 13.3 mg/24 hour 1 patch topical DAILY 01/11/25 Unknown History transdermal patch Allergy/AdvReac Type Severity Reaction Status Date / Time amoxicillin AdvReac Other Verified 01/11/25 18:47 latex AdvReac Other Verified 01/11/25 18:47 Family History Father Diabetes Mother Arthritis Hypertension Heart disease Sister Arthritis Diabetes Heart disease Hypertension High cholesterol Surgical History History of herniorrhaphy Hx of cholecystectomy Bilateral ischial wound debridement Social History housing: jail Smoking Status: Never smoker alcohol intake: never substance use type: does not use ROS ROS ED ROS Narrative Constitutional: Denies any fevers, chills, headaches Eyes: Denies changes in vision Cardiovascular: Denies chest pain Respiratory: Complains of shortness of breath as noted above denies coughing wheezing Abdomen: Denies abdominal pain nausea vomiting : Denies urinary symptoms Neurological: Denies any numbness, weakness, tingling Musculoskeletal: Denies back pain Skin: Denies any rashes or lesions EXAM Physical Exam Narrative Exam Narrative: General: Patient was lying in bed rest comfortably did not appear to be in acute distress Head: Atraumatic, normocephalic Eyes: PERRL bilateral, EOMI bilateral, no conjunctival injection noted Neck: Soft, supple, trachea midline Cardiovascular: Patient bradycardic with a regular rhythm Respiratory: Clear to auscultation bilaterally Abdomen: Soft, nondistended, no tenderness to palpation Extremities: Radial pulses +2/4 in the bilateral extremities, patient moving all extremities Neurological: Patient follow commands and that she was at [facility] year is 2024 Skin: Warm, dry, intact no rashes or lesions noted Const Vital Signs: 01/11/25 18:45 01/11/25 19:03 01/11/25 19:43 Temperature 97.7 F L Temperature Source Oral Pulse Rate 59 L 57 L Respiratory Rate 15 22 H Respiratory Effort Normal Non-Labored Respiratory Pattern Normal Blood Pressure 65/32 L 103/48 L Blood Pressure Mean 43 66 Pulse Ox 96 98 Oxygen Delivery Method Room Air 01/11/25 20:00 01/11/25 21:00 01/11/25 22:00 Temperature Temperature Source Pulse Rate 57 L 56 L 58 L Respiratory Rate Respiratory Effort Respiratory Pattern Blood Pressure 90/41 L 90/41 L 88/39 L Blood Pressure Mean 57 57 55 Pulse Ox 94 95 Oxygen Delivery Method Room Air Room Air 01/11/25 22:34 Temperature Temperature Source Pulse Rate 57 L Respiratory Rate 16 Respiratory Effort Respiratory Pattern Blood Pressure 95/45 L Blood Pressure Mean 61 Pulse Ox 96 Oxygen Delivery Method Room Air MDM MDM MDM Narrative Medical decision making narrative: Patient is a 69-year-old female who presents to the emergency department chief complaint of shortness of breath and abnormal labs. On the differential diagnosis includes but not limited to bladder outlet obstruction leading to acute renal failure, anemia, GI bleed. Once workup is obtained reviewed she will be reevaluated. Patient be typed and screened. Patient CBC reviewed which showed white blood count is 9.1, hemoglobin is 7.9 which is down from 12/09/2024 at 10.2, plate count was noted be 120. Patient INR was 2.2, PTT of 24.9. Patient sodium was 139, potassium was 5.7 however this is reported as hemolyzed which was repeated was noted be normal at 4.7, creatinine elevated to 3.19 indicating acute kidney injury, BUN was noted to be 89 up from 30. Patient's AST and ALT were 181 and 57 respectively, proBNP elevated to 1107. Patient lipase normal at 68. Patient CT abdomen pelvis without contrast showed right lung base consolidation concerning for infiltrates, small right pleural effusion. Patient given 2 g Rocephin and azithromycin at 2241. Mild cardiomegaly and moderate ascites. Heterogeneous liver with micronodular contour compatible with chronic hepatocellular disease. Prominent fatty infiltration of the campbell of the ascending colon suggestive of chronic colitis. Moderate bilateral renal atrophy punctate 2 mm calcification in the left renal pelvis either a small nonobstructing stone or vascular calcification. Extensive subcutaneous generalized edema. Moderate lumbar scoliosis with spondylosis. Which is unchanged finding concerning for ankylosing spondylitis. At this point time patient will require admission for her acute kidney injury, shortness of breath. Patient be given IV antibiotics Rocephin and azithromycin for her infiltrate seen on the CT scan. Discussed case with hospitalist Dr. Coello who accept the patient for admission. Updated the patient and she is agreeable this plan. He is requesting 40 mg IV Lasix which was ordered. All question concerns answered at bedside. Lab Data Labs: Laboratory Results - last 24 hr 01/11/25 01/11/25 01/11/25 19:01 19:06 20:30 WBC 9.1 RBC 2.49 L Hgb 7.9 L Hct 25.7 L MCV 103.2 H MCH 31.7 MCHC 30.7 L RDW Std Deviation 65.4 H RDW Coeff of Radha 17.3 H Plt Count 120 L MPV 10.7 Immature Gran % (Auto) 0.700 Neut % (Auto) 69.3 Lymph % (Auto) 16.4 L Gila % (Auto) 9.0 Eos % (Auto) 4.2 Baso % (Auto) 0.4 Absolute Neuts (auto) 6.3 Absolute Lymphs (auto) 1.49 Nucleated RBC % 0.2 Differential Comment SCANNED Platelet Estimate SLT DEC Polychromasia 1+ Anisocytosis 2+ PT 24.9 H INR 2.2 APTT 41.4 H Sodium 136 Potassium 5.7 H Chloride 109 H Carbon Dioxide 16.3 L Anion Gap 11 BUN 92 H Creatinine 3.19 H Estim Creat Clear Calc 24.72 L Est GFR (MDRD) Non-Af 15 L BUN/Creatinine Ratio 28.9 H Glucose 99 Calcium 8.7 Total Bilirubin 1.03 AST 181 H ALT 57 H Alkaline Phosphatase 209 H NT pro BNP II 1107 H Total Protein 6.9 Albumin 1.7 L Globulin 5.2 H Albumin/Globulin Ratio 0.3 L Lipase 68 Blood Type A POSITIVE Antibody Screen NEGATIVE 01/11/25 21:05 WBC RBC Hgb Hct MCV MCH MCHC RDW Std Deviation RDW Coeff of Radha Plt Count MPV Immature Gran % (Auto) Neut % (Auto) Lymph % (Auto) Gila % (Auto) Eos % (Auto) Baso % (Auto) Absolute Neuts (auto) Absolute Lymphs (auto) Nucleated RBC % Differential Comment Platelet Estimate Polychromasia Anisocytosis PT INR APTT Sodium 139 Potassium 4.7 Chloride 111 H Carbon Dioxide 19.4 L Anion Gap 9 BUN 89 H Creatinine 3.10 H Estim Creat Clear Calc 25.44 L Est GFR (MDRD) Non-Af 16 L BUN/Creatinine Ratio 28.7 H Glucose 106 H Calcium 8.2 Total Bilirubin AST ALT Alkaline Phosphatase NT pro BNP II Total Protein Albumin Globulin Albumin/Globulin Ratio Lipase Blood Type Antibody Screen Radiography Diagnostic Testing: Clinical Impression(s) from Imaging Studies Abdomen/Pelvis CT 01/11/25 21:00 IMPRESSION: 1. Right lung base consolidation concerning for infiltrates. 2. Small right pleural effusion. 3. Mild cardiomegaly. 4. Moderate ascites. 5. Heterogeneous liver with a micronodular contour, compatible with chronic hepatocellular disease. 6. Prominent fatty infiltration of the campbell of the ascending colon, suggestive of chronic colitis. 7. Moderate bilateral renal atrophy. Punctate 2 mm calcification in the left renal pelvis, either a small nonobstructing stone or vascular calcification. 8. Extensive subcutaneous generalized edema. 9. Moderate levoconvex lumbar scoliosis with spondylosis, unchanged. Findings concerning for ankylosing spondylitis. Please correlate clinically. 10. Additional nonacute findings, as described above. Reading Location: [facility] Discharge Plan Triage Chief Complaint: Abn Labs ED Provider: Issa Solomon Dx/Rx/DC Orders Clinical Impression: Acute renal failure, Shortness of breath, Pleural effusion, Ascites Prescriptions: No Action alpha lipoic acid 300 MG capsule 600 mg PO DAILY metoprolol tartrate 50 MG tablet 50 mg PO BID Qty: 60 1RF Januvia 100 mg tablet 100 mg PO DAILY Patient Comments: [NO ORIGINAL SIG] mirabegron [Myrbetriq] 25 mg tablet extended release 24 hr 25 mg PO DAILY ferrous sulfate [FeroSul] 325 mg (65 mg iron) tablet 325 mg PO DAILY magnesium hydroxide [Milk of Magnesia] 400 mg/5 mL suspension 30 ml PO DAILY PRN (Reason: constipation) sennosides-docusate sodium [Senna with Docusate Sodium] 8.6-50 mg tablet 2 tab-cap PO QHS acetaminophen 500 mg capsule 1,000 mg PO Q8H PRN (Reason: pain) polyethylene glycol 3350 [Gavilax] 17 gram/dose powder 17 g PO DAILY amiodarone 200 MG tablet 200 mg PO DAILY Foltabs 800 0.8-10-115 mg-mg-mcg tablet 1 tab PO DAILY mirtazapine 15 mg tablet 15 mg PO QHS Patient Comments: [NO ORIGINAL SIG] rivastigmine 13.3 mg/24 hour patch 24 hour 1 patch topical DAILY Primary Care Provider: Jame Coello Referrals: Jame Coello MD [Primary Care Provider] - Print Language: [place] Disposition Disposition: Acute Care Hospital [facility]
[2025-01-11 20:44] LABS: Pro- Brain NATRIURETIC PEPTIDE 1107 pg/mL (<=900)
--- NOTE | 2025-01-11 21:00 | CT_ITS ---
PROCEDURE: ABDOMEN/PELVIS WITHOUT CONT 01/11/2025 REASON FOR EXAM: ACUTE RENAL FAILURE TECHNIQUE: Procedure Code: [id number] Modality: CT Procedure: ABDOMEN/PELVIS WITHOUT CONT Noncontrast technique limits evaluation of the abdominal and pelvic viscera. Coronal and Sagittal reconstruction series were provided. One or more dose reduction techniques were used (e.g., Automated exposure control, adjustment of the mA and/or kV according to patient size, use of iterative reconstruction technique). COMPARISON: 06/21/2019. FINDINGS: Lack of IV contrast limits evaluation. Small consolidation in the right lung bases concerning for infiltrates. A small right pleural effusion is also present. Mild cardiomegaly, similar to the previous study. Moderate ascites, which limits localization of inflammatory changes. The liver has a heterogeneous appearance with a micronodular contour, compatible with chronic hepatocellular disease. Moderate fatty infiltration of the pancreas. Cholecystectomy. Moderate bilateral renal atrophy. A punctate 2 mm calcification in the left renal pelvis could represent a small nonobstructing stone or a vascular calcification. No hydronephrosis. Prominent fatty infiltration into the campbell of the ascending colon, suggesting chronic colitis. No evidence of a bowel obstruction. Moderate atherosclerotic calcifications, unchanged. Incompletely imaged surgical [place] within the lower pannus of the pelvis. Extensive subcutaneous fat stranding, compatible with generalized edema. Moderate levoconvex lumbar spine with degenerative changes, unchanged. Diffuse thin bridging syndesmophytes throughout the visualized thoracolumbar spine, similar to the previous study and concerning for ankylosing spondylitis. Mild grade 1 anterolisthesis of L4 on L5, unchanged. Moderate degenerative changes affecting both hips. No acute fracture. CT/Abdomen/Pelvis without Cont IMPRESSION: 1. Right lung base consolidation concerning for infiltrates. 2. Small right pleural effusion. 3. Mild cardiomegaly. 4. Moderate ascites. 5. Heterogeneous liver with a micronodular contour, compatible with chronic he patocellular disease. 6. Prominent fatty infiltration of the campbell of the ascending colon, suggestiv e of chronic colitis. 7. Moderate bilateral renal atrophy. Punctate 2 mm calcification in the left renal pelvis, either a small nonobstructing stone or vascular calcification. 8. Extensive subcutaneous generalized edema. 9. Moderate levoconvex lumbar scoliosis with spondylosis, unchanged. Findings concerning for ankylosing spondylitis. Please correlate clinically. 10. Additional nonacute findings, as described above. Reading Location: [id number]
[2025-01-11 21:14] LABS: Prothrombin Time (Protime)PT. 24.9 SECONDS (11.7-14.9)
[2025-01-11 21:15] LABS: Partial Thromboplast Time 41.4 Seconds (24.1-36.2)
[2025-01-11 21:35] LABS: Differential Comment SCANNED
[2025-01-11 21:39] LABS: Anisocytosis 2+; Polychromasia 1+
[2025-01-11 22:11] LABS: Anion Gap 9 (5-15); BUN 89 mg/dL (4-19); BUN/Creat Ratio 28.7 RATIO (10-20); Calcium,Total 8.2 mg/dL (7.6-11.0); Carbon Dioxide 19.4 mmol/L (21.0-32.0); Chloride 111 mmol/L (98-108); Estimated Creatinine Clearance 25.44 ml/min (50-250); Glucose 106 mg/dL (70-99); Potassium 4.7 mmol/L (3.3-5.1)
[2025-01-11] MEDS: Ceftriaxone 2 GM in 0.9% Normal Saline (50mL MB+) 50 ML IV (22:55)
[2025-01-11] MEDS: Azithromycin 500 MG in 0.9% Normal Saline (250mL Bag) 250 ML 250 MG IV (23:41)
--- NOTE | 2025-01-11 23:51 | PCM.HP.STD ---
HPI - General General Date of Admission: 01/11/25 Date of Service: 01/11/25 Chief Complaint: Abnormal labs, shortness of breath HPI Narrative KIMBERLY ROBBINS, is a 69 F who presents [facility] the emergency room from [facility] due to abnormal labs. Patient complains of shortness of breath for the past few days and had blood work obtained in the [facility] to assess her. Laboratory studies were abnormal and she was sent to the emergency room for further evaluation. Patient currently denies any chest pain, fevers or chills, nausea or vomiting but does complain of edema/bloating and shortness of breath for 2 days. Laboratory studies reveal a white blood cell count of 9.1, hemoglobin 7.9, hematocrit 25.7, platelets 120, sodium 139, potassium 4.7, chloride 111, bicarb 19.4, BUN 89, creatinine 3.1, glucose 106, AST 181, ALT 57, BNTP 1107, lipase 68, bilirubin 1.03. CT abdomen reveals right lung base infiltrate, right pleural effusion, mild cardiomegaly and moderate abdominal ascites, extensive edema noted as well. Patient will be admitted to progressive care unit to be treated for pneumonia, renal failure with edema and liver disease with ascites and CHF. [facility] Medical History (Updated 01/12/25 @ 00:[address] Jame Coello MD) Normochromic normocytic anemia Paroxysmal atrial fibrillation Essential (primary) hypertension Difficulty balancing when standing Excessive weight loss Late effect of medical and surgical care complication Abdominal wall pain in both lower quadrants Edema of abdominal wall Intertrigo Panniculitis Rupture of hernia Neuropathy Kidney failure Breast lump in female History of blood transfusion UTI (urinary tract infection) Back problem Arthritis Panniculitis Pressure sore of left ischium, unstageable Right ischial pressure sore, stage 2 Pressure ulcer Osteoarthritis Depression Umbilical hernia Anemia Thrombocytopenia Atrial fibrillation with rapid ventricular response (12/2017) Abdominal panniculus Hyperlipidemia Morbid obesity Type 2 diabetes mellitus Home Medications ?Medication ?Instructions ?Recorded ?Last Taken ?Type alpha lipoic acid 300 mg capsule 600 mg PO DAILY neuropathy 09/21/19 12/09/24 History metoprolol tartrate 50 mg tablet 50 mg PO BID #60 tabs 09/23/19 12/09/24 Rx acetaminophen 500 mg capsule 1,000 mg PO Q8H PRN pain 12/09/24 11/16/24 History amiodarone 200 mg tablet 200 mg PO DAILY 12/09/24 12/09/24 History ferrous sulfate 325 mg (65 mg 325 mg PO DAILY 12/09/24 12/09/24 History iron) tablet (FeroSul) magnesium hydroxide 400 mg/5 mL 30 ml PO DAILY PRN constipation 12/09/24 12/07/24 History oral suspension (Milk of Magnesia) mirabegron 25 mg tablet,extended 25 mg PO DAILY 12/09/24 12/09/24 History release 24 hr (Myrbetriq) polyethylene glycol 3350 17 17 g PO DAILY 12/09/24 08/22/24 History gram/dose oral powder (Gavilax) sennosides 8.6 mg-docusate sodium 2 tab-cap PO QHS 12/09/24 12/02/24 History 50 mg tablet (Senna with Docusate Sodium) sitagliptin phosphate 100 mg 100 mg PO DAILY 12/09/24 12/09/24 History tablet (Januvia) folic acid-vit B6-vit B12 0.8 1 tab PO DAILY 01/11/25 Unknown History mg-10 mg-115 mcg tablet (Foltabs 800) mirtazapine 15 mg tablet 15 mg PO QHS 01/11/25 Unknown History rivastigmine 13.3 mg/24 hour 1 patch topical DAILY 01/11/25 Unknown History transdermal patch Allergy/AdvReac Type Severity Reaction Status Date / Time amoxicillin AdvReac Other Verified 01/11/25 18:47 latex AdvReac Other Verified 01/11/25 18:47 Family History Father Diabetes Mother Arthritis Hypertension Heart disease Sister Arthritis Diabetes Heart disease Hypertension High cholesterol Surgical History History of herniorrhaphy Hx of cholecystectomy Bilateral ischial wound debridement Social History housing: [facility] Smoking Status: Never smoker alcohol intake: never substance use type: does not use ROS Constitutional Constitutional: Reports weakness; Denies chills or fever(s) Eyes Eyes: Denies blurry vision ENT HEENT: Denies abnormal hearing Cardiovascular Cardiovascular: Reports edema; Denies chest pain or syncope Respiratory/Chest Respiratory/Chest: Reports shortness of breath at rest Gastrointestinal Gastrointestinal: Denies abdominal pain, nausea or vomiting Genitourinary Genitourinary: Denies dysuria Musculoskeletal Musculoskeletal: Reports extremity pain; Denies back pain Integumentary Integumentary: Denies dry skin Neurologic Neurologic: Denies abnormal speech Psychiatric Psychiatric: Denies anxiety Vital Signs Vital Signs Vital Signs: 01/11/25 18:45 01/11/25 19:03 01/11/25 19:43 Temperature 97.7 F L Temperature Source Oral Pulse Rate 59 L 57 L Respiratory Rate 15 22 H Respiratory Effort Normal Non-Labored Respiratory Pattern Normal Blood Pressure 65/32 L 103/48 L Blood Pressure Mean 43 66 Pulse Ox 96 98 Oxygen Delivery Method Room Air 01/11/25 20:00 01/11/25 21:00 01/11/25 22:00 Temperature Temperature Source Pulse Rate 57 L 56 L 58 L Respiratory Rate Respiratory Effort Respiratory Pattern Blood Pressure 90/41 L 90/41 L 88/39 L Blood Pressure Mean 57 57 55 Pulse Ox 94 95 Oxygen Delivery Method Room Air Room Air 01/11/25 22:34 01/11/25 23:04 Temperature Temperature Source Pulse Rate 57 L 55 L Respiratory Rate 16 16 Respiratory Effort Respiratory Pattern Blood Pressure 95/45 L 93/45 L Blood Pressure Mean 61 61 Pulse Ox 96 94 Oxygen Delivery Method Room Air Room Air Weight Weight: 292 lb 15.909 oz Body Mass Index (BMI) 44.5 Physical Exam Const alert and oriented x3 General Appearance: cooperative and well developed HEENT normocephalic and head/scalp atraumatic Eyes PERRL Neck no lymphadenopathy and supple Lymph Lymphatic: no lymphadenopathy noted Resp normal respiratory effort, normal air movement and clear to auscultation bilaterally Cardio regular rate, regular rhythm, S1 normal heart sound, S2 normal heart sound and no murmurs GI soft to palpation and non-tender Inspection: abdominal distention Extremity normal capillary refill General Extremity: edema bilateral upper extremity moderate and lower extremity Details: moderate Skin General Skin Exam: no breakdown Neuro no focal motor deficits and no sensory deficits noted Psych thought process normal, cooperative and affect normal Results Lab / Micro Data 01/11/25 19:06 01/11/25 21:05 Labs: Laboratory Results - last 24 hr 01/11/25 19:01: Blood Type A POSITIVE, Antibody Screen NEGATIVE 01/11/25 19:06: WBC 9.1, RBC 2.49 L, Hgb 7.9 L, Hct 25.7 L, MCV 103.2 H, MCH 31.7, MCHC 30.7 L, RDW Std Deviation 65.4 H, RDW Coeff of Radha 17.3 H, Plt Count 120 L, MPV 10.7, Immature Gran % (Auto) 0.700, Neut % (Auto) 69.3, Lymph % (Auto) 16.4 L, Izard % (Auto) 9.0, Eos % (Auto) 4.2, Baso % (Auto) 0.4, Absolute Neuts (auto) 6.3, Absolute Lymphs (auto) 1.49, Nucleated RBC % 0.2, Differential Comment SCANNED, Platelet Estimate SLT DEC, Polychromasia 1+, Anisocytosis 2+, Sodium 136, Potassium 5.7 H, Chloride 109 H, Carbon Dioxide 16.3 L, Anion Gap 11, BUN 92 H, Creatinine 3.19 H, Estim Creat Clear Calc 24.72 L, Est GFR (MDRD) Non-Af 15 L, BUN/Creatinine Ratio 28.9 H, Glucose 99, Calcium 8.7, Total Bilirubin 1.03, AST 181 H, ALT 57 H, Alkaline Phosphatase 209 H, NT pro BNP II 1107 H, Total Protein 6.9, Albumin 1.7 L, Globulin 5.2 H, Albumin/Globulin Ratio 0.3 L, Lipase 68 01/11/25 20:30: PT 24.9 H, INR 2.2, APTT 41.4 H 01/11/25 21:05: Sodium 139, Potassium 4.7, Chloride 111 H, Carbon Dioxide 19.4 L, Anion Gap 9, BUN 89 H, Creatinine 3.10 H, Estim Creat Clear Calc 25.44 L, Est GFR (MDRD) Non-Af 16 L, BUN/Creatinine Ratio 28.7 H, Glucose 106 H, Calcium 8.2 Imaging Radiology Impression Abdomen/Pelvis CT 01/11/25 21:00 IMPRESSION: 1. Right lung base consolidation concerning for infiltrates. 2. Small right pleural effusion. 3. Mild cardiomegaly. 4. Moderate ascites. 5. Heterogeneous liver with a micronodular contour, compatible with chronic hepatocellular disease. 6. Prominent fatty infiltration of the campbell of the ascending colon, suggestive of chronic colitis. 7. Moderate bilateral renal atrophy. Punctate 2 mm calcification in the left renal pelvis, either a small nonobstructing stone or vascular calcification. 8. Extensive subcutaneous generalized edema. 9. Moderate levoconvex lumbar scoliosis with spondylosis, unchanged. Findings concerning for ankylosing spondylitis. Please correlate clinically. 10. Additional nonacute findings, as described above. Reading Location: [facility] Assessment & Plan Assessment/Plan (1) Ascites: (2) Pleural effusion: (3) Shortness of breath: (4) Acute renal failure: (5) Diabetes mellitus, type II: QUALIFIERS: Diabetes mellitus mcfp insulin use: without joint terminal attack controller use Diabetes mellitus complication status: with other specified complication Qualified Code(s): E11.69 - Type 2 diabetes mellitus with other specified complication (6) CHF (congestive heart failure): (7) Pneumonia: PLAN: Plan 1. Pneumonia?admit patient to progressive care unit, continue IV Rocephin and azithromycin initiated in the emergency room, albuterol inhalation treatment every 4 hours as needed 2. Congestive heart failure?CT reveals mild cardiomegaly BNP P is elevated, will order echocardiogram and patient will can receive Lasix 20 mg IV twice daily 3. Acute renal failure?IV hydration normal saline at a rate of 100 cc/h, repeat CMP in the a.m. as patient has had elevated liver function as well 4. Abdominal ascites?as above will benefit from Lasix and repeat CMP in the a.m. 5. Anemia?continue iron supplementation repeat CBC in the a.m. and add PPI 6. DVT prophylaxis?SCDs 7. CODE STATUS full Charges/Coding Visit Charges Inpatient E&M: 42490 Init Hosp L2
[2025-01-12] VITALS (56 sets, daily range): BP systolic 62–141; BP diastolic 32–105; PULSE 52–65; RESP 13–21; TEMP 34.7–36.9; O2SAT 94–100; BMI 65.0
--- OUTSIDE RECORDS SUMMARY | 2025-01-12 00:20 | XMS RPT_ITS | CCD ---
Author Organization [facility] Care Team Providers [facility] [place] Former Machine Name Role Phone Unavailable Primary Care Provider UnavailAlba Conner MD Primary Care Provider Yas FAGAN, Dr. Alba Rodriguez Primary Care Provider Jere FAGAN, Dr. Hui Emergency Provider Ez Oquendo Attending Unavailable Alba Sorenson Primary Care Unavailable Saeed SKIN DIVING TEACHER, Jenn Referring Unavailable Saeed SKIN DIVING TEACHER, Jenn Attending Unavailable Alba Sorenson Primary Care Unavailable Allergies Allergy Classification Reported Allergen(s) Allergy Type Date of Onset Reaction(s) Facility (3 sources) Amoxicillin Drug Allergy 6 Hives [facility] (1 source) oxyCODONE Drug Allergy 7 GI Upset [facility] Work Phone: (1 source) Latex Propensity to adverse reactions 0 Other [facility] (1 source) Amoxicillin Drug Allergy 0 [facility] (1 source) Latex Drug allergy (disorder) 0 [facility] Medications Current Medications Medication Drug Class(es) Dates Sig (Normalized) Sig (Original) acetaminophen 500 mg oral capsule (3 sources) Start: 12-09-2024 take 2 capsules by mouth every eight hours as needed for pain Acetaminophen 500 mg capsule Active 1000 mg PO Q8H as needed for pain December 09, 2024 12:00am Start: 05-11-2019 acetaminophen (TYLENOL) tablet 650 mg Start: 07-26-2017 End: 07-30-2017 Acetaminophen (Tylenol) 325 MG tablet Discontinued 650 mg PO EVERY 6 HOURS NEEDED as needed for Mild Pain (1-3)/Temp > 100.7 F 0 July 26, 2017 12:00am July 30, 2017 8:51am Acetaminophen / oxyCODONE (1 source) Opioid Agonist Start: 05-13-2019 oxyCODONE-acetaminophen (PERCOCET) 5-325 MG per tablet 1 tablet amiodarone hydrochloride 200 mg oral tablet (2 sources) Antiarrhythmic Start: 12-09-2024 take 1 tablet by mouth once daily Amiodarone 200 MG tablet Active 200 mg PO DAILY December 09, 2024 12:00am Start: 09-23-2019 End: 12-09-2024 take 1 tablet by mouth twice daily, then take 1 tablet by mouth once daily Amiodarone 200 MG tablet Discontinued 200 mg PO DIRECTED 60 0 September 23, 2019 12:00am December 09, 2024 6:57pm take 200mg (one tablet) BID for the next 2 weeks, till 10/06/2019. continue with 200mg daily from 10/07/2019 apixaban 5 mg oral tablet (5 sources) Factor Xa Inhibitor Start: 12-24-2017 End: 09-21-2019 take 1 tablet by mouth twice daily Apixaban 5 MG tablet Active 5 mg PO TWICE A DAY September 21, 2019 6:59pm blood thinner will stop 2 days prior to surgery Comment on above: Take 1 tablet by mouth twice daily. castor oil 0.788 mg/mg / liberian balsam 0.087 mg/mg topical ointment (2 sources) Standardized Chemical Allergen Start: 05-15-2019 Balsam Violet-[place] Oil (VENELEX) OINT ointment Apply topically every 8 hours 0 05/15/2019 Active Start: 05-12-2019 VENELEX ointme nt citalopram 10 mg oral tablet (5 sources) Serotonin Reuptake Inhibitor Start: 12-09-2024 take 1 tablet by mouth once daily Citalopram 10 mg tablet Active 10 mg PO DAILY December 09, 2024 12:00am Start: 07-10-2016 End: 12-09-2024 take 20 mg by mouth once daily 20 mg, Oral, DAILY, Fir st dose on Sat05/12/19 at 0900 Comment on above: Take 1 tablet by rj th once daily. collagenase 0.25 unt/mg topical ointment (2 sources) Collagen-specific Enzyme Start: 05-15-2019 End: 05-25-2019 collagenase 250 UNIT/GM ointment Apply topically daily. 0 05/15/2019 05/25/2019 Active Start: 05-12-2019 collagenase oi ntment docusate sodium 50 mg / sennosides, chcf 8.6 mg oral tablet (2 sources) Start: 12-09-2024 Sennosides-Doc usate Sodium (Senna With Docusate Sodium) 8.6-50 mg tablet Active 2 NMA PO AT BEDTIME December 09, 2024 12:00am Start: 07-19-2016 End: 09-21-2016 take 1 tablet by mouth twice daily Sennosides-Docusate Sodium (Stool Softener-Stimulant Laxat) 1 TABLET tablet Discontinued 2 {tbl} PO TWICE A DAY 0 July 19, 2016 12:00am September 21, 2016 11:58am ferrous sulfate 325 mg oral tablet (1 source) Start: 12-09-2024 take 1 tablet by mouth once daily Ferrous Sulfate (Ferosul) 325 mg (65 mg iron) tablet Active 325 mg PO DAILY December 09, 2024 12:00am glucagon (rdna) 1 mg injection (2 sources) Antihypoglycemic Agent Start: 05-11-2019 glucago n (rDNA) injection 1 mg Start: 07-30-2017 End: 08-02-2017 Glucagon (Glucagen Diagnosti c Kit) 1 MG/ML syringe Discontinued 1 mg IM NEEDED as needed for Hypoglycemia July 30, 2017 12:00am August 02, 2017 10:49am 150 ml glucose 50 mg/ml inje ction (3 sources) Start: 05-11-2019 dextrose 50 % IV solution Start: 05-11-2019 dextrose 5 % s olution Start: 05-11-2019 glucose (GLUTO SE) 40 % oral gel 15 g 250 ml heparin sodium, porcine 100 unt/ml injection (2 sources) Unfractionated Heparin, Anti-coagulant Start: 05-14-2019 heparin flush 100 UNIT/ML injection 250 Units Magnesium Hydroxide (1 source) Start: 12-09-2024 take 1 mL by mouth once daily as needed for constipation Magnesium Hydroxide (Milk Of Magnesia) 400 mg/5 mL suspension Active 30 mL PO DAILY as needed for constipation [place] 6th, 2025 12:00am metoprolol tartrate 50 mg oral tablet (12 sources) beta-Adrenergic Agatha Start: 09-23-2019 take 1 tablet by mouth twice daily Metoprolol Tartrate 50 MG tablet Active 50 mg PO TWICE A DAY 60 September 23, 2019 12:00am Start: 09-21-2019 End: 09-23-2019 take 1 tablet by mouth once daily Metoprolol Succinate 25 MG tablet extended release 24 hr Discontinued 25 mg PO DAILY September 21, 2019 12:00am September 23, 2019 3:18pm heart Start: 05-12-2019 take 100 mg by mouth once daily at dinner 100 mg, Oral, DAILY WITH DINNER, First dose on Sat05/12/19 at 1730 Start: 05-08-2019 End: 06-18-2019 Metoprolol Tartrate 100 MG t ablet Discontinued 50 mg PO WITH BREAKFAST May 08, 2019 12:23pm June 18, 2019 3:02pm Start: 05-08-2019 End: 06-18-2019 take 2 tablets by mouth at dinner Metoprolol Tartrate 50 MG tablet Discontinued 100 mg PO WITH DINNER May 08, 2019 1:00am June 18, 2019 3:03pm Start: 12-17-2018 take 50 mg by mouth once daily before breakfast 50 mg, Oral, DAILY BEFORE BREAKFAST, First dose on Sat05/12/19 at 0745 Start: 12-24-2017 End: 05-08-2019 take 1 tablet by mouth twice daily Metoprolol Tartrate 100 MG tablet Discontinued 100 mg PO TWICE A DAY 0 December 24, 2017 12:00am May 08, 2019 12:23pm Start: 07-10-2016 End: 12-24-2017 take 1 tablet by mouth at bedtime Metoprolol Tartrate 100 MG tablet Discontinued 100 mg PO AT BEDTIME July 10, 2016 1:00am December 24, 2017 11:56am hypertension Start: 07-10-2016 End: 12-24-2017 take 1 tablet by mouth at breakfast Metoprolol Tartrate 50 MG tablet Discontinued 50 mg PO WITH BREAKFAST July 10, 2016 1:00am December 24, 2017 11:56am hypertension Comment on above: Take 1 pill in the m orning and 2 pills in the evening miconazole nitrate 0.02 mg/mg topical powder (2 sources) Azole Antifungal Start: 05-15-2019 miconazole (MICOTIN) 2 % powder Apply topically 2 times daily. 45 g 1 05/15/2019 Active Start: 05-12-2019 miconazole (NE COTIN) 2 % powder 24 hr mirabegron 25 mg extended release oral tablet (1 source) beta3-Adrenergic Agonist Start: 12-09-2024 take 1 tablet by mouth once daily Mirabegron (Myrbetriq) 25 mg tablet extended release 24 hr Active 25 mg PO DAILY December 09, 2024 12:00am 2 ml ondansetron 2 mg/ml injection (3 sources) Serotonin-3 Receptor Antagonist Start: 05-11-2019 ondansetron (ZOFRAN) injection 4 mg Start: 07-30-2017 End: 08-02-2017 take 1 tablet by mouth every eight hours as needed for nausea Ondansetron Hcl 8 MG tablet Discontinued 8 mg PO EVERY 8 HOURS NEEDED as needed for Nausea July 30, 2017 12:00am August 02, 2017 10:50am Start: 07-19-2016 End: 07-25-2016 take 4 mg intravenously every six hours as needed for nausea Ondansetron Hcl (Pf) 4 MG/2 ML Vial Discontinued 4 mg IV EVERY 6 HOURS NEEDED as needed for NAUSEA/VOMITING 0 0 July 19, 2016 12:00am July 25, 2016 10:00pm piperacillin 3000 mg / tazobactam 375 mg injection (2 sources) Penicillin-class Antibacterial, beta Lactamase Inhibitor Start: 05-13-2019 piperacillin-tazobactam (ZOSYN) 3.375 g in dextrose 50 mL IVPB extended infusion (premix) Start: 05-12-2019 End: 05-12-2019 piperacillin-tazobactam (ZOS YN) 3.375 g in dextrose 50 mL IVPB extended infusion (premix) polyethylene glycol 3350 71925 mg powder for oral solution (2 sources) Osmotic Laxative Start: 12-09-2024 Polyethylene Glycol 3350 (Gavilax) 17 gram/dose powder Active 17 g PO DAILY December 09, 2024 12:00am Start: 05-12-2019 polyethylene g lycol (GLYCOLAX) packet 17 g sennosides, chcf 8.6 mg oral tablet (2 sources) Start: 05-11-2019 End: 06-14-2019 take 1 tablet by mouth once daily as needed for constipation senna (SENOKOT) 8.6 MG tablet Take 1 tablet by mouth daily as needed (Constipation) 0 05/15/2019 06/14/2019 Active SITagliptin 100 mg oral tablet (1 source) Dipeptidyl Peptidase 4 Inhibitor Start: 12-09-2024 take 1 tablet by mouth once daily Sitagliptin Phosphate (Januvia) 100 mg tablet Active 100 mg PO DAILY December 09, 2024 12:00am 3 ml sodium chloride 9 mg/ml injection (6 sources) Start: 05-11-2019 0.9 % sodium chloride infusion Start: 05-11-2019 sodium chlorid e flush 0.9 % injection 10 mL stomahesive in petrolatum (ET MIX) (1 source) Start: 05-12-2019 stomahesive in petrolatum (ET MIX) thioctic acid 300 mg oral capsule (2 sources) Start: 07-14-2019 take 2 capsules by mouth once daily Alpha Lipoic Acid 300 MG capsule Active 600 mg PO DAILY September 21, 2019 12:00am neuropathy Comment on above: Take 2 capsules by m outh once daily. (for neuropathy) Completed/Discontinued Medications Medication Drug Class(es) Dates Sig (Normalized) Sig (Original) Kbjsb-Hghp-Knyzk-C ivbab-Gf-Lpy (Bernard (With Collagen)) 1 PACKET Packet (2 sources) Start: 07-26-2017 End: 08-02-2017 take 1 dose by mouth twice daily at mealtime Uplhv-Fbnk-Yujfc-Co llag-Mv-Min (Bernard (With Collagen)) 1 PACKET Packet Discontinued 1 NMA PO TWICE DAILY WITH MEALS July 26, 2017 5:08pm August 02, 2017 10:50am wound healing Start: 07-26-2017 End: 07-26-2017 take 1 dose by mouth twice daily at mealtime Upgzo-Eiow-Zwsdq-Uhtcps-Po-Fcs (Bernard (W ith Collagen)) 1 PACKET Packet Discontinued 1 NMA PO TWICE DAILY WITH MEALS 0 July 26, 2017 12:00am July 26, 2017 5:08pm ascorbic acid 500 mg oral capsule (1 source) Vitamin C Start: 06-21-2019 End: 12-09-2024 take 1 capsule by mouth once daily Ascorbic Acid (Vitamin C) 500 MG capsule Discontinued 500 mg PO DAILY June 21, 2019 1:00am December 09, 2024 6:57pm cefdinir 300 mg oral capsule (1 source) Cephalosporin Antibacterial Start: 09-23-2019 End: 12-09-2024 take 1 capsule by mouth every twelve hours Cefdinir 300 MG capsule Discontinued 300 mg PO Q12H September 23, 2019 12:00am December 09, 2024 6:54pm cephalexin 500 mg oral capsule (1 source) Cephalosporin Antibacterial Start: 06-01-2017 End: 06-02-2017 take 1 capsule by mouth three times daily Cephalexin (Keflex) 500 MG capsule Discontinued 500 mg PO THREE TIMES A DAY June 01, 2017 1:00am June 02, 2017 10:03am infection 50 ml clindamycin 12 mg/ml injection (2 sources) Lincosamide Antibacterial Start: 07-26-2017 End: 08-02-2017 Clindamycin In 5 % Dextrose 600 MG/50 ML Bag Discontinued 600 mg IV EVERY 8 HOURS July 26, 2017 5:08pm August 02, 2017 10:48am antibiotic COMPOUNDED PRESCRIPTION (1 source) Start: 11-15-2016 COMPOUNDED PRESCRIPTION Diabetic shoes with 3 custom inserts (E11.40) Controlled type 2 diabetes mellitus with diabetic neuropathy, without long-term current use of insulin 1 Each 0 11/15/2016 Active Comment on above: Diabetic shoes with 3 custom inserts (E11.40) Controlled type 2 diabetes mellitus with diabetic neuropathy, without long-term current use of insulin diclofenac sodium 50 mg delayed release oral tablet (1 source) Nonsteroidal Anti-inflammatory Drug Start: 07-26-2017 End: 08-02-2017 take 1 tablet by mouth three times daily as needed for pain Diclofenac Sodium 50 MG tablet Discontinued 50 mg PO THREE TIMES A DAY as needed for Pain 0 July 26, 2017 12:00am August 02, 2017 10:48am famotidine 20 mg oral tablet (2 sources) Histamine-2 Receptor Antagonist Start: 07-14-2019 End: 12-09-2024 take 1 tablet by mouth twice daily Famotidine 20 MG tablet Discontinued 20 mg PO TWICE A DAY September 21, 2019 12:00am December 09, 2024 6:54pm Comment on above: Take 1 tablet by rj th twice daily. gabapentin 600 mg oral tablet (7 sources) Anti-epileptic Agent Start: 09-21-2019 End: 12-09-2024 take 1 capsule by mouth once daily Gabapentin 300 MG capsule Discontinued 300 mg PO DAILY September 21, 2019 12:00am December 09, 2024 6:57pm neuropathy Start: 09-21-2019 End: 12-09-2024 take 1 tablet by mouth at bedtime Gabapentin 600 MG tablet Discontinued 600 mg PO AT BEDTIME September 21, 2019 12:00am December 09, 2024 6:54pm neuropathy Start: 07-22-2017 End: 06-18-2019 take 1 capsule by mouth twice daily gabapentin (NEURONTIN) 300 MG capsule Take 1 capsule by mouth 2 times daily for 30 days. 4 capsule 0 05/15/2019 06/14/2019 Active Start: 07-10-2016 End: 07-19-2016 take 2 tablets by mouth three times daily at mealtime Gabapentin 600 MG tablet Discontinued 1200 mg PO 3 TIMES DAILY WITH MEALS July 10, 2016 1:00am July 19, 2016 2:13pm glimepiride 2 mg oral tablet (1 source) Sulfonylurea Start: 07-10-2016 End: 07-19-2016 take 1 tablet by mouth at breakfast Glimepiride 2 MG tablet Discontinued 2 mg PO WITH BREAKFAST July 10, 2016 1:00am July 19, 2016 2:13pm 3 ml insulin aspart, human 100 unt/ml pen injector (1 source) Insulin Analog Start: 07-19-2016 End: 07-19-2016 Insulin Aspart U-100 (Novolog Flexpen U-100 Insulin) 100 UNITS/ML Flexpen Discontinued 0 U SC BEFORE MEALS AND AT BEDTIME 0 July 19, 2016 12:00am July 19, 2016 3:38pm levoFLOXacin 500 mg oral tablet (2 sources) Quinolone Antimicrobial Start: 07-26-2017 End: 08-02-2017 take 1 tablet by mouth once daily Levofloxacin 500 MG tablet Discontinued 500 mg PO DAILY@0600 July 26, 2017 5:08pm August 02, 2017 10:49am antibiotic lisinopril 5 mg oral tablet (1 source) Angiotensin Converting Enzyme Inhibitor Start: 07-10-2016 End: 07-19-2016 take 1 tablet by mouth once daily Lisinopril 5 MG tablet Discontinued 5 mg PO DAILY July 10, 2016 1:00am July 19, 2016 2:13pm meloxicam 15 mg oral tablet (1 source) Nonsteroidal Anti-inflammatory Drug Start: 07-10-2016 End: 07-19-2016 take 1 tablet by mouth once daily Meloxicam 15 MG tablet Discontinued 15 mg PO DAILY July 10, 2016 1:00am July 19, 2016 2:13pm menthol 0.0044 mg/mg / zinc oxide 0.206 mg/mg topical ointment (3 sources) Start: 05-08-2019 End: 06-18-2019 Menthol-Zinc Oxide 1 APPLIC ointment Discontinued 1 NMA topical TWICE A DAY May 08, 2019 1:00am June 18, 2019 2:58pm Start: 12-17-2018 Menthol-Zinc O xide (CALMOSEPTINE) 0.44-20.6 % Apply 1 application to affected area twice daily as needed (apply to affected area). 1 Tube 3 12/17/2018 Active Start: 07-26-2017 End: 07-26-2017 Menthol-Zinc Oxide (Calmosep gonzalo) 1 APPLIC Tube Discontinued 1 NMA TOPICAL TWICE A DAY 0 July 26, 2017 12:00am July 26, 2017 5:08pm Please contact the information source for Protocol details. Comment on above: Apply 1 application to affected area twice daily as needed (apply to affected area). metFORMIN hydrochloride 500 mg oral tablet (2 sources) Biguanide Start: 07-27-19 End: 07-27-19 take 1 tablet by mouth twice daily at mealtime Metformin 500 MG tablet Discontinued 500 mg PO TWICE DAILY WITH MEALS 0 July 26, 2017 12:00am July 26, 2017 5:08pm Start: 07-10-2016 End: 07-19-2016 take 1 tablet by mouth twice daily Metformin 1,000 MG tablet Discontinued 1000 mg PO TWICE A DAY July 10, 2016 1:00am July 19, 2016 2:13pm morphine sulfate 30 mg extended release oral tablet (8 sources) Opioid Agonist Start: 09-22-2019 End: 12-09-2024 take 1 tablet by mouth twice daily Morphine 30 MG tablet extended release Discontinued 30 mg PO TWICE A DAY September 22, 2019 12:00am December 09, 2024 6:55pm pain Start: 06-18-2019 End: 06-18-2019 take 1 tablet by mouth twice daily Morphine 60 MG tablet extended release Discontinued 60 mg PO TWICE A DAY 4 2 0 June 18, 2019 June 18, 2019 2:58pm Osteoarthritis Unspecified osteoarthritis, unspecified site pain Start: 05-15-2019 End: 05-30-2019 take 1 tablet by mouth every twelve hours morphine (MS CONTIN) 60 MG extended release tablet Indications: Chronic pain syndrome Take 1 tablet by mouth every 12 hours for 30 doses. 4 tablet 0 05/15/2019 05/30/2019 Active Start: 05-13-2019 morphine (MS C ONTIN) extended release tablet 60 mg Start: 09-21-2016 End: 12-24-2017 take 1 tablet by mouth twice daily Morphine 60 MG tablet extended release Discontinued 60 mg PO TWICE A DAY 6 0 August 02, 2017 10:52am December 24, 2017 1:58pm Osteoarthritis Unspecified osteoarthritis, unspecified site pain Start: 07-10-2016 End: 07-19-2016 take 2 tablets by mouth twice daily Morphine 30 MG tablet Discontinued 60 mg PO TWICE A DAY July 10, 2016 1:00am July 19, 2016 2:13pm PAIN Multivit,Stress Formula-Zinc 1 EACH tablet (1 source) Start: 06-21-2019 End: 12-09-2024 Multivit,Stress Formula-Zinc 1 EACH tablet Discontinued 1 NMA PO DAILY June 21, 2019 1:00am December 09, 2024 6:57pm mupirocin 0.02 mg/mg topical ointment (2 sources) RNA Synthetase Inhibitor Antibacterial Start: 07-26-2017 End: 08-02-2017 Mupirocin 1 APPLIC Tube Discontinued 1 NMA TOPICAL .QDAILY July 26, 2017 5:08pm August 02, 2017 10:50am suture line Please contact the information source for Protocol details. naloxone hydrochloride 40 mg/ml nasal spray (1 source) Opioid Antagonist Start: 12-17-2018 naloxone 4 mg/actuation nasal spray (NARCAN) Use 1 spray in one nostril. May repeat every 2 to 3 minutes as needed in alternating nostrils until medical assistance becomes available. 1 Box 0 12/17/2018 Active Comment on above: Use 1 spray in one n ostril. May repeat every 2 to 3 minutes as needed in alternating nostrils until medical assistance becomes available. Nut.Tx.Imp.Renal Fxn,Lac-Reduc (Nepro Carb Steady) 120 ML Liquid (1 source) Start: 07-19-2016 End: 07-25-2016 take 1 mL by mouth four times daily Nut.Tx.Imp.Renal Fxn,Lac-Reduc (Nepro Carb Steady) 120 ML Liquid Discontinued 120 mL PO 4 TIMES DAILY 0 July 19, 2016 12:00am July 25, 2016 10:00pm nystatin 100 unt/mg topical ointment (3 sources) Polyene Antifungal Start: 05-12-2019 End: 05-12-2019 nystatin (MYCOSTATIN) ointment Start: 03-13-2019 nystatin (MYCO STATIN) powder Apply 1 application to affected area twice daily. 60 g 11 03/13/2019 Active Start: 06-02-2017 End: 07-26-2017 Nystatin 1 APPLIC bottle Dis continued 1 NMA TOPICAL TWICE A DAY 1 June 02, 2017 1:00am July 26, 2017 5:08pm Please contact the information source for Protocol details. Comment on above: Apply 1 application to affected area twice daily. oxyCODONE hydrochloride 5 mg oral tablet (1 source) Opioid Agonist Start: End: take 1 tablet by mouth every six hours as needed for pain Oxycodone 5 MG tablet Discontinued 5 mg PO EVERY 6 HOURS NEEDED as needed for Severe Pain (6-10/10) 0 0 July 19, 2016 12:00am July 25, 2016 10:01pm microencapsulated potassium chloride 10 meq extended release oral tablet (1 source) Start: End: potassium chloride (KLOR-CON M) extended release tablet 40 mEq sulfamethoxazole 800 mg / trimethoprim 160 mg oral tablet (1 source) Dihydrofolate Reductase Inhibitor Antibacterial, Sulfonamide Antimicrobial Start: End: Sulfamethoxazole-Tr imethoprim 1 TABLET tablet Discontinued 1 {tbl} PO TWICE A DAY July 30, 2017 12:00am August 02, 2017 10:50am tigecycline (TYGACIL) 100 mg in sodium chloride 0.9 % 100 mL IVPB (1 source) Start: End: tigecycline (TYGACIL) 100 mg in sodium chloride 0.9 % 100 mL IVPB tigecycline (TYGACIL) 50 mg in sodium chloride 0.9 % 100 mL IVPB (1 source) Start: End: tigecycline (TYGACIL) 50 mg in sodium chloride 0.9 % 100 mL IVPB tiZANidine 4 mg oral tablet (6 sources) Central alpha-2 Adrenergic Agonist Start: End: take 1 tablet by mouth twice daily as needed for muscle spasms Tizanidine 4 MG tablet Discontinued 4 mg PO TWICE A DAY as needed for Muscle Spasm September 21, 2019 6:08pm December 09, 2024 6:57pm Start: 06-18-2019 End: 09-21-2019 take 1 tablet by mouth four times daily as needed for muscle spasms Tizanidine 4 MG tablet Discontinued 4 mg PO 4 TIMES DAILY NEEDED as needed for Muscle Spasm 1 0 June 18, 2019 3:02pm September 21, 2019 6:08pm Start: 12-17-2018 End: 06-18-2019 take 2-4 mg by mouth twice daily Tizanidine 4 MG tablet Discontinued 2 - 4 mg PO TWICE A DAY May 08, 2019 1:00am June 18, 2019 3:03pm Start: 07-26-2017 End: 12-21-2017 take 2 tablets by mouth every six hours as needed for pain Tizanidine 2 MG tablet Discontinued 4 mg PO EVERY 6 HOURS as needed for Pain 0 July 26, 2017 12:00am December 21, 2017 4:04pm Comment on above: Take 0.5-1 tablets b y mouth twice daily as needed. vancomycin (VANCOCIN) 1,500 mg in dextrose 5 % 250 mL IVPB (1 source) Start: 05-12-2019 End: 05-12-2019 vancomycin (VANCOCIN) 1,500 mg in dextrose 5 % 250 mL IVPB Problems Active Problems Problem Classification Problem Date Documented Date Episodic/Chronic Acute and unspecified renal failure (1 source) Prerenal azotemia; Translations: [Unspecified kidney failure] 12-09-2024 Chronic Acute and unspecified renal failure (6 sources) Acute injury of kidney; Translations: [Acute renal failure syndrome] Onset: 05-12-2019 Episodic Administrative/socia l admission (1 source) Bed-ridden; Translations: [Bed confinement status] 12-09-2024 Episodic Anxiety disorders (2 sources) Anxiety state; Translations: [Generalized anxiety disorder] Onset: 01-29-2007 01-29-2007 Chronic Attention-deficit, conduct, and disruptive behavior disorders (1 source) Aggressive behavior; Translations: [Other symptoms and signs involving appearance and behavior] 12-09-2024 Episodic Cardiac dysrhythmias (5 sources) Paroxysmal atrial fibrillation; Translations: [Paroxysmal atrial fibrillation] Onset: 07-11-2018 Chronic Chronic kidney disease (1 source) Chronic kidney disease stage 3; Translations: [Stage 3 chronic kidney disease] 09-22-2019 Chronic Chronic ulcer of skin (7 sources) Pressure ulcer of other site, unstageable; Translations: [Pressure injury of right perineal ischial region, unstageable] 05-09-2019 Chronic Comment on above: anticipate Stage IV after excision may be higher stage after excision Deficiency and other anemia (1 source) Macrocytic anemia; Translations: [Nutritional anemia, unspecified] 12-09-2024 Episodic Deficiency and other anemia (1 source) Iron deficiency anemia; Translations: [Iron deficiency anemia, unspecified] 09-22-2019 Episodic Diabetes mellitus with complications (3 sources) Hyperglycemia due to type 2 diabetes mellitus; Translations: [Type 2 diabetes mellitus with hyperglycemia] 12-09-2024 Chronic Diabetes mellitus without complication (5 sources) Type 2 diabetes mellitus; Translations: [Type 2 diabetes mellitus without complications] Onset: 09-24-2005 Chronic Disorders of lipid metabolism (4 sources) Hyperlipidemia; Translations: [Hyperlipidemia, unspecified] Onset: 06-22-2009 Chronic Esophageal disorders (1 source) Gastroesophageal reflux disease; Translations: [Gastro-esophageal reflux disease without esophagitis] 05-08-2019 Chronic Essential hypertension (4 sources) Essential hypertension; Translations: [Essential (primary) hypertension] Onset: 09-24-2005 Chronic Fluid and electrolyte disorders (4 sources) Hyponatremia; Translations: [Hypo-osmolality and hyponatremia] 05-08-2019 Episodic Gangrene (2 sources) Skin necrosis; Translations: [Gangrene, not elsewhere classified] 05-09-2019 Episodic Comment on above: left ischial pressur e sore Genitourinary symptoms and ill-defined conditions (1 source) Urinary incontinence; Translations: [Unspecified urinary incontinence] 01-23-2018 Chronic Malaise and fatigue (1 source) Asthenia; Translations: [Other malaise] 01-23-2018 Episodic Menopausal disorders (1 source) Postmenopausal bleeding; Translations: [Postmenopausal bleeding] Onset: 01-08-2025 Chronic Mood disorders (2 sources) Reactive depression (situational); Translations: [Major depressive disorder, single episode, unspecified] Onset: 01-29-2007 10-19-2018 Chronic Mood disorders (1 source) Mood disorders; Translations: [Depression, unspecified] Onset: 12-15-2024 Open wounds of head; neck; and trunk (1 source) Open wound umbilical region; Translations: [Unspecified open wound of abdominal wall, periumbilic region without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 pHOrdered By: Ez fry on 12-09-2024 pH (U) 5.0 [pH] 5.0 - 8.0 [facility] Urine phencyclidine (PCP) de tectionOrdered By: Ez Oquendo on 12-09-2024 Phencyclidine Ql (U) Negative < 25 ng/mL [facility] Urine sediment bacteria coun t by microscopy (number/high power field)Ordered By: Ez Oquendo on 12-09-2024 Bacteria LM.HPF (Urine sed) [#/Area] 4 /[HPF] None Seen [facility] Urine specific gravity measu rementOrdered By: Ez Oquendo on 12-09-2024 Specific gravity (U) [Rel density] 1.020 1.002-1.030 [facility] Urine urobilinogen measureme ntOrdered By: Ez Oquendo on 12-09-2024 Urobilinogen Ql (U) 4 mg/dl High Normal [facility] White blood cell (WBC) count Ordered By: Ez Oquendo on 12-09-2024 WBC (Bld) [#/Vol] 10.0 10*3/uL 4.4-11.0 [facility] White blood cell countOrdere d By: Ez Oquendo on 12-09-2024 White blood cell count 10-25 SEEN /hpf 0-5 [facility] BASIC METABOLIC PANELon 01-04 Anion gap [Moles/Vol] 13 mmol/L Normal 10 - 20 [facility] Comment on above: Performed By: #### B MP #### [facility] [address] [place] [address] Calcium [Mass/Vol] 9.6 mg/dL Normal 8.6 - 10.6 [facility] Comment on above: Performed By: #### B MP #### [facility] [address] [place] [address] Chloride [Moles/Vol] 103 mmol/L Normal 98 - 107 [facility] Comment on above: Performed By: #### B MP #### [facility] [address] [place] [address] Creatinine [Mass/Vol] 0.83 mg/dL Normal 0.50 - 1.05 [facility] Comment on above: Performed By: #### B MP #### [facility] [address] [place] [address] GFR/1.73 sq M.predicted among non-blacks MDRD (S/P/Bld) [Vol rate/Area] 78 mL/min/{1.73_m2} Normal >90 [facility] Comment on above: Result Comment: CALC ULATIONS OF ESTIMATED GFR ARE PERFORMED USING THE 2020 CKD-EPI STUDY REFIT EQUATION WITHOUT THE RACE VARIABLE FOR THE IDMS-TRACEABLE CREATININE METHODS. https://jasn.asnjournals.org/content/early//ASN.104 2024427 Performed By: #### B MP #### [facility] [address] [place] [address] Glucose [Mass/Vol] 171 mg/dL High 74 - 99 [facility] Comment on above: Performed By: #### B MP #### [facility] [address] [place] [address] HCO3 (Bld) [Moles/Vol] 27 mmol/L Normal 21 - 32 [facility] Comment on above: Performed By: #### B MP #### [facility] [address] [place] [address] Potassium [Moles/Vol] 4.8 mmol/L Normal 3.5 - 5.3 [facility] Comment on above: Performed By: #### B MP #### [facility] [address] [place] [address] Sodium [Moles/Vol] 138 mmol/L Normal 136 - 145 [facility] Comment on above: Performed By: #### B MP #### [facility] [address] [place] [address] Urea nitrogen [Mass/Vol] 19 mg/dL Normal 6 - 23 [facility] Comment on above: Performed By: #### B MP #### [facility] [address] [place] [address] CBCon 01-16-2022 Erythrocyte distribution width (RBC) [Ratio] 15.7 % High 11.5 - 14.5 [facility] Comment on above: Performed By: #### C BC #### [facility] [address] [place] [address] Hematocrit (Bld) [Volume fraction] 36.0 % Normal 36.0 - 46.0 [facility] Comment on above: Performed By: #### C BC #### [facility] [address] [place] [address] Hemoglobin (Bld) [Mass/Vol] 10.3 g/dL Low 12.0 - 16.0 [facility] Comment on above: Performed By: #### C BC #### [facility] [address] [place] [address] MCHC (RBC) [Mass/Vol] 28.6 g/dL Low 32.0 - 36.0 [facility] Comment on above: Performed By: #### C BC #### [facility] [address] [place] [address] MCV (RBC) [Entitic vol] 103 fL High 80 - 100 [facility] Comment on above: Performed By: #### C BC #### [facility] [address] [place] [address] NUCLEATED RBC 0.0 /100 WBC Normal 0.0-0.0 [facility] Comment on above: Performed By: #### C BC #### [facility] [address] [place] [address] Platelets (Bld) [#/Vol] 131 10*3/uL Low 150 - 450 [facility] Comment on above: Performed By: #### C BC #### [facility] [address] [place] [address] RBC 3.50 x10E12/L Low 4.00 - 5.20 [facility] Comment on above: Performed By: #### C BC #### [facility] [address] [place] [address] WBC (Bld) [#/Vol] 4.5 10*3/uL Normal 4.4 - 11.3 [facility] Comment on above: Performed By: #### C BC #### [facility] [address] [place] [address] CBC W/DIFFon 09-21-2019 BASO ABS 0.00 K/CU MM Normal 0-0.2 [facility] Comment on above: Performed By: #### L 200.98963 #### [facility] [address] [place] [address] Basophils/100 WBC (Bld) 0.5 % Normal 0-2 [facility] Comment on above: Performed By: #### L 200.77418 #### [facility] [address] [place] [address] EOS ABS 0.10 K/CU MM Normal 0-0.5 [facility] Comment on above: Performed By: #### L 200.95838 #### [facility] [address] [place] [address] Eosinophils/100 WBC (Bld) 1.5 % Normal 0-5 [facility] Comment on above: Performed By: #### L 200.00844 #### [facility] [address] [place] [address] Erythrocyte distribution width (RBC) [Ratio] 14.5 % Normal 11-14.5 [facility] Comment on above: Performed By: #### L 200.76859 #### [facility] [address] [place] [address] Hematocrit (Bld) [Volume fraction] 28.7 % Low 35.0-47.0 [facility] Comment on above: Performed By: #### L 200.55876 #### [facility] [address] [place] [address] Hemoglobin (Bld) [Mass/Vol] 8.9 g/dL Low 11.5-15.5 [facility] Comment on above: Performed By: #### L 200.31286 #### [facility] [address] [place] [address] IMMATR GRAN ABS 0.00 K/CU MM Normal Less than 2 [facility] Comment on above: Performed By: #### L 200.62818 #### [facility] [address] [place] [address] IMMATURE GRAN % 0.3 % Normal Less than 2 [facility] Comment on above: Performed By: #### L 200.05988 #### [facility] [address] [place] [address] Lymphocytes (Bld) [#/Vol] 0.90 K/CU MM Normal 0.9-4.4 [facility] Comment on above: Performed By: #### L 200.83211 #### [facility] [address] [place] [address] Lymphocytes/100 WBC (Bld) 23.6 % Normal 20-40 [facility] Comment on above: Performed By: #### L 200.85216 #### [facility] [address] [place] [address] MCHC (RBC) [Mass/Vol] 31.0 g/dL Low 32.0-36.0 [facility] Comment on above: Performed By: #### L 200.18674 #### [facility] [address] [place], [place] [id number] MCV (RBC) [Entitic vol] 93.8 fL Normal 80.0-99.0 [facility] Comment on above: Performed By: #### L 200.39949 #### [facility] [address] [place] [address] MONO ABS 0.50 K/CU MM Normal 0.1-1.1 [facility] Comment on above: Performed By: #### L 200.65937 #### [facility] [address] [place] [address] Monocytes/100 WBC (Bld) 12.4 % High 2-10 M [facility] Comment on above: Performed By: #### L 200.61784 #### [facility] [address] [place] [address] NEUTROPHIL ABS 2.40 K/CU MM Normal 2.0-8.3 [facility] Comment on above: Performed By: #### L 200.11709 #### [facility] [address] [place] [address] Neutrophils/100 WBC (Bld) 61.7 % Normal 45-75 [facility] Comment on above: Performed By: #### L 200.63051 #### [facility] [address] [place] [address] Nucleated RBC/100 WBC (Bld) [Ratio] 0.0 % Normal Less than 1 [facility] Comment on above: Performed By: #### L 200.55649 #### [facility] [address] [place] [address] Platelet mean volume (Bld) [Entitic vol] 10.4 fL Normal 9.4-12.4 [facility] Comment on above: Performed By: #### L 200.81966 #### [facility] [place] [address] Platelets (Bld) [#/Vol] 112 K/CU MM Low 150-450 [facility] Comment on above: Performed By: #### L 200.60032 #### [facility] [address] [place] [address] RBC (Bld) [#/Vol] 3.06 M/CU MM Low 3.90-5.30 [facility] Comment on above: Performed By: #### L 200.70386 #### [facility] [address] [place] [address] WBC (Bld) [#/Vol] 3.9 K/CUMM Low 4.5-11.0 [facility] Comment on above: Performed By: #### L 200.66733 #### [facility] [address] [place] [address] CMPon 09-21-2019 Albumin [Mass/Vol] 2.1 g/dL Low 3.2-5.0 [facility] Comment on above: Performed By: #### L 500.41058, L500.99563 #### [facility] [address] [place] [address] Albumin/Globulin [Mass ratio] 0.5 {ratio} Low 0.8-2.0 [facility] Comment on above: Performed By: #### L 500.36970, L500.36869 #### [facility] [address] [place] [address] ALK PHOS 114 U/L Normal 45-117 [facility] Comment on above: Performed By: #### L 500.13777, L500.32303 #### [facility] [address] [place] [address] ALT [Catalytic activity/Vol] 34 U/L Normal 13-61 [facility] Comment on above: Result Comment: RESU LTS MAY BE FALSELY DEPRESSED AFTER THE ADMINISTRATION OF SULFASALAZINE AND/OR SULFAPYRIDINE. Performed By: #### L 500.73831, L500.43765 #### [facility] [address] [place] [address] Anion gap [Moles/Vol] 6 mmol/L Normal 5-16 [facility] Comment on above: Performed By: #### L 500.65029, L500.82759 #### [facility] [address] [place] [address] BILI TOTAL 0.4 MG/DL Normal 0.2-1.0 [facility] Comment on above: Performed By: #### L 500.25108, L500.44599 #### [facility] [place] [address] Calcium [Mass/Vol] 8.1 mg/dL Low 8.5-10.1 [facility] Comment on above: Performed By: #### L 500.59966, L500.95410 #### [facility] [place] [address] Chloride [Moles/Vol] 102 mmol/L Normal 98-107 [facility] Comment on above: Performed By: #### L 500.39530, L500.13793 #### [facility] [place] [address] CO2 [Moles/Vol] 28 mmol/L Normal 21-32 [facility] Comment on above: Performed By: #### L 500.72375, L500.77110 #### [facility] [place] [address] Creatinine [Mass/Vol] 2.300 mg/dL High 0.510-0.950 [facility] Comment on above: Result Comment: Lucinda ents receiving either N-Acetylcysteine (NAC) or Metamizole prior to venipuncture, may have falsely depressed results. Performed By: #### L 500.52178, L500.78822 #### [facility] [address] [place] [address] Globulin (S) [Mass/Vol] 4.2 g/dL Normal 2.2-4.2 [facility] Comment on above: Performed By: #### L 500.69691, L500.92798 #### [facility] [address] [place] [address] Glucose [Mass/Vol] 190 mg/dL High 70-100 [facility] Comment on above: Result Comment: 70-1 00- Normal Fasting; 100-125 Impaired Fasting; greater than 126 on more than one result- Diabetes. ADA guidelines. Results may be falsely elevated after the administration of Sulfapyridine. Results may be falsely depressed after the administration of Sulfasalazine. Performed By: #### L 500.56117, L500.21779 #### [facility] [address] [place] [address] Potassium [Moles/Vol] 4.2 mmol/L Normal 3.5-5.1 [facility] Comment on above: Performed By: #### L 500.44710, L500.09212 #### [facility] [address] [place] [address] Protein [Mass/Vol] 6.3 g/dL Normal 6.0-8.5 [facility] Comment on above: Performed By: #### L 500.98093, L500.33517 #### [facility] [address] [place] [address] SGOT (AST) 44 U/L High 8-34 [facility] Comment on above: Result Comment: RESU LTS MAY BE FALSELY DEPRESSED AFTER THE ADMINISTRATION OF SULFASALAZINE AND/OR SULFAPYRIDINE. Performed By: #### L 500.23392, L500.54989 #### [facility] [place] [address] Sodium [Moles/Vol] 136 mmol/L Normal 136-145 [facility] Comment on above: Performed By: #### L 500.83970, L500.78556 #### [facility] [address] [place], [place] [address] Urea nitrogen [Mass/Vol] 56 mg/dL High 7- [facility] Comment on above: Performed By: #### L 500.00466, L500.04918 #### [facility] [address] [place], [place] [address] Urea nitrogen/Creatinine [Mass ratio] 24 mg/mg Normal 15-24 [facility] Comment on above: Performed By: #### L 500.35880, L500.63279 #### [facility] [address] [place], [place] [address] GFR ESTon 09-21-2019 IF AMER 26 ML/MIN Normal [facility] Comment on above: Performed By: #### L 500.47891, L500.78430 #### [facility] [address] [place], [place] [address] IF non-AFR AMER 21 ML/MIN Normal [facility] Comment on above: Performed By: #### L 500.98249, L500.38868 #### [facility] [address] [place] [address] CULTURE ANAEROBEon 0 CULTURE ANAEROBE 2 Organism Bacteroides fragilis Group Rare Normal [facility] Comment on above: Order Comment: Speci men Source Comment:Wound Performed By: #### S /GRM, C/JOSE DAVID #### [facility] [address] [place], [place] #### CS/BA #### [place] [address] [place] [address] [place], [place] [id number] Basic Metabolic Panelon 01- 0-2019 Anion gap [Moles/Vol] 6 Normal [facility] Comment on above: Performed By: #### H EMDF, CMP3M, LACT3, HA1C2 #### [place] [address] [place], [place] Calcium [Mass/Vol] 7.4 mg/dL Low 8.4-10.4 [facility] Comment on above: Performed By: #### H EMDF, CMP3M, LACT3, HA1C2 #### [place] [address] [place], [place] CO2 [Moles/Vol] 26 mmol/L Normal 22-30 [facility] Comment on above: Performed By: #### H EMDF, CMP3M, LACT3, HA1C2 #### [place] [address] [place], [place] Glucose [Mass/Vol] 96 mg/dL Normal 70-100 [facility] Comment on above: Performed By: #### H EMDF, CMP3M, LACT3, HA1C2 #### [address] [place] [address] [place], [place] Urea nitrogen [Mass/Vol] 28 mg/dL High 7-20 [facility] Comment on above: Performed By: #### H EMDF, CMP3M, LACT3, HA1C2 #### [place] [address] [place], [place] Creatinine [Mass/Vol] 0.95 mg/dL Normal 0.52-1.25 [facility] Comment on above: Performed By: #### H EMDF, CMP3M, LACT3, HA1C2 #### [place] [address] [place], [place] GFR/1.73 sq M predicted among blacks MDRD (S/P/Bld) [Vol rate/Area] mL/min/{1.73_m2} Normal >60 [facility] Comment on above: Performed By: #### H EMDF, CMP3M, LACT3, HA1C2 #### [address] [address] [place], [place] GFR/1.73 sq M predicted among non-blacks MDRD (S/P/Bld) [Vol rate/Area] 59.6 mL/min/{1.73_m2} Normal >60 [facility] Comment on above: Result Comment: Sour ce- MDRD equation with creatinine calibration to IDMS(NKDEP) eGFR not recommended for drug dose adjustment Performed By: #### H EMDF, CMP3M, LACT3, HA1C2 #### [address] [address] [place], [place] Potassium [Moles/Vol] 3.7 mmol/L Normal 3.5-5.1 [facility] Comment on above: Performed By: #### H EMDF, CMP3M, LACT3, HA1C2 #### [address] Sodium [Moles/Vol] 137 mmol/L Normal 135-145 [facility] Comment on above: Performed By: #### H EMDF, CMP3M, LACT3, HA1C2 #### [address] Basic Metabolic PanelOrdered By: Vasu Fenton on 05-15-2019 Chloride [Moles/Vol] 105 mmol/L Normal 98-107 [facility] Work Phone: [phone] Comment on above: Performed By: #### H EMDF, CMP3M, LACT3, HA1C2 #### [address] [address] [place] [address] Anion gap [Moles/Vol] 6 mmol/L [facility] Work Phone: Calcium [Mass/Vol] 7.4 mg/dL Low 8.4 - 10. 4 mg/dL [facility] Work Phone: CO2 [Moles/Vol] 26 mmol/L 22 - 30 mmol/L [facility] Work Phone: [phone] Creatinine [Mass/Vol] 0.95 mg/dL 0.52 - 1.25 mg/dL [employer] Work Phone: [phone] IF NonAfrican Mauritian 59.6 mL/min >60 [employer] Work Phone: [phone] Comment on above: Source- MDRD equatio n with creatinine calibration to IDMS(NKDEP) eGFR not recommended for drug dose adjustment GFR/1.73 sq M.predicted among blacks MDRD (S/P/Bld) [Vol rate/Area] mL/min/{1.73_m2} >60 mL/min [employer] Work Phone: [phone] Glucose [Mass/Vol] 96 mg/dL 70 - 100 mg/dL [employer] Work Phone: [phone] Interpretation and review of laboratory results Abnormal [employer] Work Phone: [phone] Potassium [Moles/Vol] 3.7 mmol/L 3.5 - 5.1 mmol/L [employer] Work Phone: [phone] Sodium [Moles/Vol] 137 mmol/L 135 - 145 mmol/L [employer] Work Phone: [phone] Urea nitrogen [Mass/Vol] 28 mg/dL High 7 - 20 mg/d L [employer] Work Phone: [phone] Test Performed by [facility], [address] [place] [address] [employer] Work Phone: [phone] CBC Auto DifferentialOrdered By: Vasu Fenton on 05-15-2019 Absolute Baso # 0.0 10*3/uL 0 - 0.2 10*3/uL [employer] Work Phone: [phone] Absolute Neut # 2.6 10*3/uL 1.8 - 7 10*3/uL [employer] Work Phone: [phone] Basophils/100 WBC (Bld) 0.8 % 0 - 2 % [facility] Work Phone: [phone] Eosinophils (Bld) [#/Vol] 0.1 10*3/uL 0 - 0.5 10*3/uL [employer] Work Phone: Eosinophils/100 WBC (Bld) 2.7 % 1 - 6 % [employer] Work Phone: [phone] Erythrocyte distribution width (RBC) [Ratio] 14.2 % 11.5 - 14.5 % [employer] Work Phone: 1 Granulocytes/100 WBC (Bld) 55.1 % 40 - 80 % [employer] Work Phone: 1 Hematocrit (Bld) [Volume fraction] 25.4 % Low 35 - 47 % [employer] Work Phone: [phone] Hemoglobin (Bld) [Mass/Vol] 8.4 g/dL Low 11.7 - 16 g/dL [employer] Work Phone: [phone] Interpretation and review of laboratory results Abnormal [employer] Work Phone: 1 Lymphocytes (Bld) [#/Vol] 1.5 10*3/uL 1 - 4.3 10*3/uL [employer] Work Phone: Lymphocytes/100 WBC (Bld) 31.6 % 20 - 40 % [employer] Work Phone: 1 MCH (RBC) [Entitic mass] 28.7 pg 26 - 34 pg [employer] Work Phone: MCHC 33.2 % 32 - 36 % [employer] Work Phone: 1 MCV (RBC) [Entitic vol] 86.4 fL 79 - 98 fL [facility] [employer] Work Phone: Monocytes (Bld) [#/Vol] 0.5 10*3/uL 0 - 0.8 10*3/uL [employer] Work Phone: [phone] Monocytes/100 WBC (Bld) 9.8 % 2 - 10 % [facility] [employer] Work Phone: Platelet mean volume (Bld) [Entitic vol] 7.6 fL 7.4 - 10.4 fL [employer] Work Phone: Platelets (Bld) [#/Vol] 103 10*3/uL Low 140 - 440 10*3/uL [employer] Work Phone: [phone] RBC (Bld) [#/Vol] 2.94 10*6/uL Low 3.8 - 5.2 10*6/uL [employer] Work Phone: WBC (Bld) [#/Vol] 4.8 10*3/uL 3.6 - 10.7 10*3/uL [employer] Work Phone: Test Performed by [facility], [address] [place] [address] [employer] Work Phone: CULT./ST. BACTERIAon 020 CULT./ST. BACTERIA CULT./ST. BACTERIA --> Status: F Mixed enteric yazmin present. 1 Organism Pseudomonas aeruginosa Rare 1 Organism Antibiotic Result Intrp Cefepime(CARROLL) = 2 S Pip/Tazobactam(CARROLL) = 8 S Meropenem(CARROLL) <= 0.25 S Ciprofloxacin(CARROLL) <= 0.25 S Levofloxacin(CARROLL) = 1 S Gentamicin(CARROLL) <= 1 S Amikacin(CARROLL) <= 2 S [facility] Comment on above: Order Comment: Speci men Source Comment:Wound Performed By: #### S /NARESH, C/JOSE DAVID #### [facility] [address] [place] [phone] #### CS/BA #### [facility] [address] [place] [phone] [facility] [place], [place] [id number] Culture, Aerobic Bacteria wi th Gram StaiOrdered By: Nina Fisher on 05-15-2019 Aerobic Culture Mixed enteric yazmin present. Abnormal [facility] Work Phone: [phone] Aerobic Culture Pseudomonas aeruginosa Abnormal [facility] Work Phone: [phone] Aerobic Culture Rare [facility] Work Phone: [phone] Interpretation and review of laboratory results Abnormal [facility] Work Phone: Test Performed by [facility], [address] [place] [address] Specimen Source Comment:Wound [facility] Work Phone: Hemogram w/ Autodiffon 05-15 Abs Baso Cnt 0.0 10*3/uL Normal 0.0-0.2 [facility] Comment on above: Performed By: #### H EMDF, CMP3M, LACT3, HA1C2 #### [address] [address] Abs Neutrophile Cnt 2.6 10*3/uL Normal 1.8-7.0 [facility] Comment on above: Performed By: #### H EMDF, CMP3M, LACT3, HA1C2 #### [address] [address] Basophils/100 WBC (Bld) 0.8 % Normal 0.0-2.0 [facility] Comment on above: Performed By: #### H EMDF, CMP3M, LACT3, HA1C2 #### [address] [address] Eosinophils (Bld) [#/Vol] 0.1 10*3/uL Normal 0.0-0.5 [facility] Comment on above: Performed By: #### H EMDF, CMP3M, LACT3, HA1C2 #### [address] [address] Eosinophils/100 WBC (Bld) 2.7 % Normal 1.0-6.0 [facility] Comment on above: Performed By: #### H EMDF, CMP3M, LACT3, HA1C2 #### [address] Erythrocyte distribution width (RBC) [Ratio] 14.2 % Normal 11.5-14.5 [facility] Comment on above: Performed By: #### H EMDF, CMP3M, LACT3, HA1C2 #### [address] [address] [place], [place] Granulocytes/100 WBC (Bld) 55.1 % Normal 40.0-80.0 [facility] Comment on above: Performed By: #### H EMDF, CMP3M, LACT3, HA1C2 #### [address] [address] [place], [place] Hematocrit (Bld) [Volume fraction] 25.4 % Low 35.0-47.0 [facility] Comment on above: Performed By: #### H EMDF, CMP3M, LACT3, HA1C2 #### [address] [address] [place], [place] Hemoglobin (Bld) [Mass/Vol] 8.4 g/dL Low 11.7-16.0 [facility] Comment on above: Performed By: #### H EMDF, CMP3M, LACT3, HA1C2 #### [address] [address] [place], [place] Lymphocytes (Bld) [#/Vol] 1.5 10*3/uL Normal 1.0-4.3 [facility] Comment on above: Performed By: #### H EMDF, CMP3M, LACT3, HA1C2 #### [address] [address] [place], [place] Lymphocytes/100 WBC (Bld) 31.6 % Normal 20.0-40.0 [facility] Comment on above: Performed By: #### H EMDF, CMP3M, LACT3, HA1C2 #### [address] MCH (RBC) [Entitic mass] 28.7 pg Normal 26.0-34.0 [facility] Comment on above: Performed By: #### H EMDF, CMP3M, LACT3, HA1C2 #### [address] [address] [place], [place] MCHC (RBC) [Mass/Vol] 33.2 % Normal 32.0-36.0 [facility] Comment on above: Performed By: #### H EMDF, CMP3M, LACT3, HA1C2 #### [address] MCV (RBC) [Entitic vol] 86.4 fL Normal 79.0-98.0 [facility] Comment on above: Performed By: #### H EMDF, CMP3M, LACT3, HA1C2 #### [address] Monocytes (Bld) [#/Vol] 0.5 10*3/uL Normal 0.0-0.8 [facility] Comment on above: Performed By: #### H EMDF, CMP3M, LACT3, HA1C2 #### [address] Monocytes/100 WBC (Bld) 9.8 % Normal 2.0-10.0 [facility] Comment on above: Performed By: #### H EMDF, CMP3M, LACT3, HA1C2 #### [address] Platelet mean volume (Bld) [Entitic vol] 7.6 fL Normal 7.4-10.4 [facility] Comment on above: Performed By: #### H EMDF, CMP3M, LACT3, HA1C2 #### [address] Platelets (Bld) [#/Vol] 103 10*3/uL Low 140-440 [facility] Comment on above: Performed By: #### H EMDF, CMP3M, LACT3, HA1C2 #### [address] RBC (Bld) [#/Vol] 2.94 10*6/uL Low 3.80-5.20 [facility] Comment on above: Performed By: #### H EMDF, CMP3M, LACT3, HA1C2 #### [address] [address] [place], [place] WBC (Bld) [#/Vol] 4.8 10*3/uL Normal 3.6-10.7 [facility] Comment on above: Performed By: #### H EMDF, CMP3M, LACT3, HA1C2 #### [address] [address] [place], [place] Basic Metabolic Panelon 01-0 Anion gap [Moles/Vol] 6 Normal [facility] Comment on above: Performed By: #### H EMDF, CMP3M, LACT3, HA1C2 #### [address] [address] [place], [place] Calcium [Mass/Vol] 7.6 mg/dL Low 8.4-10.4 [facility] Comment on above: Performed By: #### H EMDF, CMP3M, LACT3, HA1C2 #### [address] [address] [place], [place] CO2 [Moles/Vol] 26 mmol/L Normal 22-30 [facility] Comment on above: Performed By: #### H EMDF, CMP3M, LACT3, HA1C2 #### [address] [address] [place], [place] Creatinine [Mass/Vol] 0.98 mg/dL Normal 0.52-1.25 [facility] Comment on above: Performed By: #### H EMDF, CMP3M, LACT3, HA1C2 #### [address] [address] [place], [place] GFR/1.73 sq M predicted among blacks MDRD (S/P/Bld) [Vol rate/Area] mL/min/{1.73_m2} Normal >60 [facility] Comment on above: Performed By: #### H EMDF, CMP3M, LACT3, HA1C2 #### [address] [address] [place], [place] GFR/1.73 sq M predicted among non-blacks MDRD (S/P/Bld) [Vol rate/Area] 57.5 mL/min/{1.73_m2} Normal >60 [facility] Comment on above: Result Comment: Sour ce- MDRD equation with creatinine calibration to IDMS(NKDEP) eGFR not recommended for drug dose adjustment Performed By: #### H EMDF, CMP3M, LACT3, HA1C2 #### [address] [address] [place], [place] Glucose [Mass/Vol] 88 mg/dL Normal 70-100 [facility] Comment on above: Performed By: #### H EMDF, CMP3M, LACT3, HA1C2 #### [address] [address] [place], [place] Urea nitrogen [Mass/Vol] 26 mg/dL High 7-20 [facility] Comment on above: Performed By: #### H EMDF, CMP3M, LACT3, HA1C2 #### [address] [address] [place], [place] Chloride [Moles/Vol] 106 mmol/L Normal 98-107 [facility] Comment on above: Performed By: #### H EMDF, CMP3M, LACT3, HA1C2 #### [address] [address] [place], [place] Potassium [Moles/Vol] 3.4 mmol/L Low 3.5-5.1 [facility] Comment on above: Performed By: #### H EMDF, CMP3M, LACT3, HA1C2 #### [address] [address] [place], [place] Sodium [Moles/Vol] 138 mmol/L Normal 135-145 [facility] Comment on above: Performed By: #### H EMDF, CMP3M, LACT3, HA1C2 #### [address] [address] [place], [place] Basic Metabolic PanelOrdered By: Vasu Fenton on 05-14-2019 Anion gap [Moles/Vol] 6 mmol/L [facility] Work Phone: Calcium [Mass/Vol] 7.6 mg/dL Low 8.4 - 10. 4 mg/dL [facility] Work Phone: [phone] Chloride [Moles/Vol] 106 mmol/L 98 - 10 7 mmol/L [facility] Work Phone: [phone] CO2 [Moles/Vol] 26 mmol/L 22 - 30 mmol/L [employer] Work Phone: [phone] Creatinine [Mass/Vol] 0.98 mg/dL 0.52 - 1.25 mg/dL [employer] Work Phone: [phone] EGFR IF NonAfrican Mauritian 57.5 mL/min >60 [facility] Work Phone: [phone] Comment on above: Source- MDRD equatio n with creatinine calibration to IDMS(NKDEP) eGFR not recommended for drug dose adjustment GFR/1.73 sq M.predicted among blacks MDRD (S/P/Bld) [Vol rate/Area] mL/min/{1.73_m2} >60 mL/min [employer] Work Phone: [phone] Glucose [Mass/Vol] 88 mg/dL 70 - 100 mg/dL [employer] Work Phone: [phone] Interpretation and review of laboratory results Abnormal [employer] Work Phone: [phone] Potassium [Moles/Vol] 3.4 mmol/L Low 3.5 - 5.1 mmol/L [facility] Work Phone: [phone] Sodium [Moles/Vol] 138 mmol/L 135 - 145 mmol/L [facility] Work Phone: [phone] Urea nitrogen [Mass/Vol] 26 mg/dL High 7 - 20 mg/d L [facility] Work Phone: [phone] Test Performed by [facility], [address] [place] [address] [employer] Work Phone: [phone] CBC Auto DifferentialOrdered By: Vasu Fenton on 05-14-2019 Absolute Baso # 0.0 10*3/uL 0 - 0.2 10*3/uL [employer] Work Phone: [phone] Absolute Neut # 3.6 10*3/uL 1.8 - 7 10*3/uL [employer] Work Phone: [phone] Basophils/100 WBC (Bld) 0.4 % 0 - 2 % [facility] Work Phone: [phone] Eosinophils (Bld) [#/Vol] 0.1 10*3/uL 0 - 0.5 10*3/uL [employer] Work Phone: 22 Eosinophils/100 WBC (Bld) 1.7 % 1 - 6 % [employer] Work Phone: Erythrocyte distribution width (RBC) [Ratio] 14.0 % 11.5 - 14.5 % [employer] Work Phone: [phone] Granulocytes/100 WBC (Bld) 65.0 % 40 - 80 % [employer] Work Phone: Hematocrit (Bld) [Volume fraction] 25.6 % Low 35 - 47 % [facility] Work Phone: Hemoglobin (Bld) [Mass/Vol] 8.4 g/dL Low 11.7 - 16 g/dL [facility] Work Phone: Interpretation and review of laboratory results Abnormal [employer] Work Phone: 22 Lymphocytes (Bld) [#/Vol] 1.3 10*3/uL 1 - 4.3 10*3/uL [employer] Work Phone: 22 Lymphocytes/100 WBC (Bld) 24.3 % 20 - 40 % [facility] Work Phone: MCH (RBC) [Entitic mass] 28.6 pg 26 - 34 pg [employer] Work Phone: MCHC 33.1 % 32 - 36 % [facility] Work Phone: MCV (RBC) [Entitic vol] 86.5 fL 79 - 98 fL [facility] [employer] Work Phone: 22 Monocytes (Bld) [#/Vol] 0.5 10*3/uL 0 - 0.8 10*3/uL [employer] Work Phone: 22 Monocytes/100 WBC (Bld) 8.6 % 2 - 10 % [facility] [employer] Work Phone: Platelet mean volume (Bld) [Entitic vol] 7.6 fL 7.4 - 10.4 fL [facility] Work Phone: Platelets (Bld) [#/Vol] 122 10*3/uL Low 140 - 440 10*3/uL [employer] Work Phone: RBC (Bld) [#/Vol] 2.96 10*6/uL Low 3.8 - 5.2 10*6/uL [employer] Work Phone: WBC (Bld) [#/Vol] 5.5 10*3/uL 3.6 - 10.7 10*3/uL [employer] Work Phone: Test Performed by [facility], [address] [place] [address] [employer] Work Phone: CR Chest Portableon 05-14-19 20 CR Chest Portable Patient Name: NANCY ROBBINS Diagnostic Radiology Exam Date/Time 05/14/2019 17:58:04 EST Exam CR Chest Portable Ordering Physician [facility] Accession Number [id number] CPT4 Codes 18357 () Reason For Exam line placement Report CLINICAL INDICATION: line placement COMPARISON: None TECHNIQUE: Single portable AP radiograph of the chest. FINDINGS: LUNGS/PLEURA: There is increased opacity in the region of the right middle lobe which obscures the right heart border. The remainder of the lungs are clear. Trachea is midline. No pneumothorax. MEDIASTINUM:Heart size and mediastinal contours are normal. VASCULARITY: Normal BONES:Unremarkable SUPPORT LINES: Left-sided PICC terminates at the caval atrial junction. OTHER: IMPRESSION: Left-sided PICC terminates at the cavoatrial junction. Questionable right middle lobe infiltrate which obscures the right heart border. Report Dictated on Final Dictated: 05/14/2019 5:33 pm Dictating Physician: MD RAKAN, TIGIST STANFORD Signed Date and Time: 05/14/2019 5:35 pm Signed by: MD BLEDSOE YUN ROBERT Transcribed Date and Time: 05/14/2019 5:33 Normal [facility] Glucose,Bedsideon 05-14-2019 Glucose [Mass/Vol] 89 mg/dL Normal 70-100 [facility] Comment on above: Result Comment: salvage mechanic Notified; Test performed by glucose meter. Results may be 10%-15% lower than serum/plasma values. (CLIA ID [id number]) Performed By: #### H EMDF, CMP3M, LACT3, HA1C2 #### [facility] [address] [place], [place] Glucose [Mass/Vol] 103 mg/dL High 70-100 [facility] Comment on above: Result Comment: Test performed by glucose meter. Results may be 10%-15% lower than serum/plasma values. (CLIA ID [id number]) Performed By: #### H EMDF, CMP3M, LACT3, HA1C2 #### [address] [address] [place], [place] Hemogram w/ Autodiffon 05-14 Abs Baso Cnt 0.0 10*3/uL Normal 0.0-0.2 [facility] Comment on above: Performed By: #### H EMDF, CMP3M, LACT3, HA1C2 #### [address] [address] [place], [place] Abs Neutrophile Cnt 3.6 10*3/uL Normal 1.8-7.0 [facility] Comment on above: Performed By: #### H EMDF, CMP3M, LACT3, HA1C2 #### [address] Basophils/100 WBC (Bld) 0.4 % Normal 0.0-2.0 [facility] Comment on above: Performed By: #### H EMDF, CMP3M, LACT3, HA1C2 #### [address] [address] [place], [place] Eosinophils (Bld) [#/Vol] 0.1 10*3/uL Normal 0.0-0.5 [facility] Comment on above: Performed By: #### H EMDF, CMP3M, LACT3, HA1C2 #### [address] [address] [place], [place] Eosinophils/100 WBC (Bld) 1.7 % Normal 1.0-6.0 [facility] Comment on above: Performed By: #### H EMDF, CMP3M, LACT3, HA1C2 #### [address] [address] [place], [place] Erythrocyte distribution width (RBC) [Ratio] 14.0 % Normal 11.5-14.5 [facility] Comment on above: Performed By: #### H EMDF, CMP3M, LACT3, HA1C2 #### [address] [address] [place], [place] Granulocytes/100 WBC (Bld) 65.0 % Normal 40.0-80.0 [facility] Comment on above: Performed By: #### H EMDF, CMP3M, LACT3, HA1C2 #### [address] [address] [place], [place] Hematocrit (Bld) [Volume fraction] 25.6 % Low 35.0-47.0 [facility] Comment on above: Performed By: #### H EMDF, CMP3M, LACT3, HA1C2 #### [address] [address] [place], [place] Hemoglobin (Bld) [Mass/Vol] 8.4 g/dL Low 11.7-16.0 [facility] Comment on above: Performed By: #### H EMDF, CMP3M, LACT3, HA1C2 #### [address] [address] [place] Lymphocytes (Bld) [#/Vol] 1.3 10*3/uL Normal 1.0-4.3 [facility] Comment on above: Performed By: #### H EMDF, CMP3M, LACT3, HA1C2 #### [address] Lymphocytes/100 WBC (Bld) 24.3 % Normal 20.0-40.0 [facility] Comment on above: Performed By: #### H EMDF, CMP3M, LACT3, HA1C2 #### [address] [address] [place], [place] MCH (RBC) [Entitic mass] 28.6 pg Normal 26.0-34.0 [facility] Comment on above: Performed By: #### H EMDF, CMP3M, LACT3, HA1C2 #### [address] [address] [place] MCHC (RBC) [Mass/Vol] 33.1 % Normal 32.0-36.0 [facility] Comment on above: Performed By: #### H EMDF, CMP3M, LACT3, HA1C2 #### [address] [address] [place] MCV (RBC) [Entitic vol] 86.5 fL Normal 79.0-98.0 [facility] Comment on above: Performed By: #### H EMDF, CMP3M, LACT3, HA1C2 #### [address] [address] [place], [place] Monocytes (Bld) [#/Vol] 0.5 10*3/uL Normal 0.0-0.8 [facility] Comment on above: Performed By: #### H EMDF, CMP3M, LACT3, HA1C2 #### [address] [address] [place] Monocytes/100 WBC (Bld) 8.6 % Normal 2.0-10.0 [facility] Comment on above: Performed By: #### H EMDF, CMP3M, LACT3, HA1C2 #### [address] [address] [place] Platelet mean volume (Bld) [Entitic vol] 7.6 fL Normal 7.4-10.4 [facility] Comment on above: Performed By: #### H EMDF, CMP3M, LACT3, HA1C2 #### [address] [address] [place] Platelets (Bld) [#/Vol] 122 10*3/uL Low 140-440 [facility] Comment on above: Performed By: #### H EMDF, CMP3M, LACT3, HA1C2 #### [facility] [address] [place], [place] RBC (Bld) [#/Vol] 2.96 10*6/uL Low 3.80-5.20 [facility] Comment on above: Performed By: #### H EMDF, CMP3M, LACT3, HA1C2 #### [facility] Prepared Response [facility] [address] [place], [place] WBC (Bld) [#/Vol] 5.5 10*3/uL Normal 3.6-10.7 [facility] Comment on above: Performed By: #### H EMDF, CMP3M, LACT3, HA1C2 #### [facility] Prepared Response [address] POCT GlucoseOrdered By: Laverne Fenton on 05-14-2019 Glucose [Mass/Vol] 89 mg/dL 70 - 100 mg/dL [facility] Work Phone: Comment on above: Caregiver Notified; Test performed by glucose meter. Results may be 10%-15% lower than serum/plasma values. (CLIA ID [id number]) Test Performed by [facility], [address] [place] [address] [employer] Work Phone: Glucose [Mass/Vol] 103 mg/dL High 70 - 100 mg/dL [employer] Work Phone: Comment on above: Test performed by gl ucose meter. Results may be 10%-15% lower than serum/plasma values. (CLIA ID [id number]) Interpretation and review of laboratory results Abnormal [employer] Work Phone: Test Performed by [facility], [address] [place] [address] [employer] Work Phone: XR CHEST PORTABLEOrdered By: Chelly Cha on 05-14-2019 Patient Name: NANCY ROBBINS ---Diagnostic Radiology--- Exam Date/Time 05/14/2019 17:58:04 EST Exam CR Chest Portable Ordering Physician [facility]LLY [facility] Accession Number [id number] CPT4 Codes 14856 () Reason For Exam line placement Report CLINICAL INDICATION: line placement COMPARISON: None TECHNIQUE: Single portable AP radiograph of the chest. FINDINGS: LUNGS/PLEURA: There is increased opacity in the region of the right middle lobe which obscures the right heart border. The remainder of the lungs are clear. Trachea is midline. No pneumothorax. MEDIASTINUM:Heart size and mediastinal contours are normal. VASCULARITY: Normal BONES:Unremarkable SUPPORT LINES: Left-sided PICC terminates at the caval atrial junction. OTHER: IMPRESSION: Left-sided PICC terminates at the cavoatrial junction. Questionable right middle lobe infiltrate which obscures the right heart border. Report Dictated on --- Final --- Dictated: 05/14/2019 5:33 pm Dictating Physician: MD BLEDSOE YUN ROBERT Signed Date and Time: 05/14/2019 5:35 pm Signed by: MD BLEDSOE YUN ROBERT Transcribed Date and Time: 05/14/2019 5:33 [facility] Work Phone: [place], [facility] Incoming Radiology Results From [facility] - 05/14/2019 5:58 PM EST Patient Name: NANCY ROBBINS ---Diagnostic Radiology--- Exam Date/Time 05/14/2019 17:58:04 EST Exam CR Chest Portable Ordering Physician CHELLY [facility] Accession Number [id number] CPT4 Codes 92474 () Reason For Exam line placement Report CLINICAL INDICATION: line placement COMPARISON: None TECHNIQUE: Single portable AP radiograph of the chest. FINDINGS: LUNGS/PLEURA: There is increased opacity in the region of the right middle lobe which obscures the right heart border. The remainder of the lungs are clear. Trachea is midline. No pneumothorax. MEDIASTINUM:Heart size and mediastinal contours are normal. VASCULARITY: Normal BONES:Unremarkable SUPPORT LINES: Left-sided PICC terminates at the caval atrial junction. OTHER: IMPRESSION: Left-sided PICC terminates at the cavoatrial junction. Questionable right middle lobe infiltrate which obscures the right heart border. Report Dictated on --- Final --- Dictated: 05/14/2019 5:33 pm Dictating Physician: MD RAKAN, TIGIST STANFORD Signed Date and Time: 05/14/2019 5:35 pm Signed by: MD RAKAN, TIGIST STANFORD Transcribed Date and Time: 05/14/2019 5:33 [facility] Work Phone: Basic Metabolic Panelon Anion gap [Moles/Vol] 3 Normal [facility] Comment on above: Performed By: #### H EMDF, CMP3M, LACT3, HA1C2 #### [facility] [address] [place] [address] Calcium [Mass/Vol] 7.8 mg/dL Low 8.4-10.4 [facility] Comment on above: Performed By: #### H EMDF, CMP3M, LACT3, HA1C2 #### [address] [address] [place] [address] CO2 [Moles/Vol] 28 mmol/L Normal 22-30 [facility] Comment on above: Performed By: #### H EMDF, CMP3M, LACT3, HA1C2 #### [address] [address] [place] [address] Glucose [Mass/Vol] 99 mg/dL Normal 70-100 [facility] Comment on above: Performed By: #### H EMDF, CMP3M, LACT3, HA1C2 #### [address] [place] [address] Urea nitrogen [Mass/Vol] 24 mg/dL High 7-20 [facility] Comment on above: Performed By: #### H EMDF, CMP3M, LACT3, HA1C2 #### [facility] [address] [place] [address] Creatinine [Mass/Vol] 1.00 mg/dL Normal 0.52-1.25 [facility] Comment on above: Performed By: #### H EMDF, CMP3M, LACT3, HA1C2 #### [facility] [address] [place] [address] GFR/1.73 sq M predicted among blacks MDRD (S/P/Bld) [Vol rate/Area] mL/min/{1.73_m2} Normal >60 [facility] Comment on above: Performed By: #### H EMDF, CMP3M, LACT3, HA1C2 #### [address] [address] [place] [address] GFR/1.73 sq M predicted among non-blacks MDRD (S/P/Bld) [Vol rate/Area] 56.2 mL/min/{1.73_m2} Normal >60 [facility] Comment on above: Result Comment: Sour ce- MDRD equation with creatinine calibration to IDMS(NKDEP) eGFR not recommended for drug dose adjustment Performed By: #### H EMDF, CMP3M, LACT3, HA1C2 #### [address] [address] [place], [place] Chloride [Moles/Vol] 106 mmol/L Normal 98-107 [facility] Comment on above: Performed By: #### H EMDF, CMP3M, LACT3, HA1C2 #### [address] [address] [place] [address] Potassium [Moles/Vol] 3.6 mmol/L Normal 3.5-5.1 [facility] Comment on above: Performed By: #### H EMDF, CMP3M, LACT3, HA1C2 #### [address] [address] [place] [address] Sodium [Moles/Vol] 138 mmol/L Normal 135-145 [facility] Comment on above: Performed By: #### H EMDF, CMP3M, LACT3, HA1C2 #### [address] [address] [place] [address] Basic Metabolic PanelOrdered By: Vasu Fenton on 05-13-2019 Anion gap [Moles/Vol] 3 mmol/L [facility] Work Phone: Calcium [Mass/Vol] 7.8 mg/dL Low 8.4 - 10. 4 mg/dL [facility] Work Phone: Chloride [Moles/Vol] 106 mmol/L 98 - 10 7 mmol/L [facility] Work Phone: CO2 [Moles/Vol] 28 mmol/L 22 - 30 mmol/L [employer] Work Phone: [phone] Creatinine [Mass/Vol] 1 mg/dL 0.52 - 1.25 mg/dL [employer] Work Phone: [phone] IF NonAfrican Mauritian 56.2 mL/min >60 [employer] Work Phone: [phone] Comment on above: Source- MDRD equatio n with creatinine calibration to IDMS(NKDEP) eGFR not recommended for drug dose adjustment GFR/1.73 sq M.predicted among blacks MDRD (S/P/Bld) [Vol rate/Area] mL/min/{1.73_m2} >60 mL/min [employer] Work Phone: [phone] Glucose [Mass/Vol] 99 mg/dL 70 - 100 mg/dL [employer] Work Phone: [phone] Interpretation and review of laboratory results Abnormal [employer] Work Phone: [phone] Potassium [Moles/Vol] 3.6 mmol/L 3.5 - 5.1 mmol/L [facility] Work Phone: [phone] Sodium [Moles/Vol] 138 mmol/L 135 - 145 mmol/L [facility] Work Phone: [phone] Urea nitrogen [Mass/Vol] 24 mg/dL High 7 - 20 mg/d L [employer] Work Phone: [phone] Test Performed by [facility], [address] [place] [address] [employer] Work Phone: [phone] Auto DifferentialOrdered By: Vasu Fenton on 05-13-2019 Absolute Baso # 0.0 10*3/uL 0 - 0.2 10*3/uL [employer] Work Phone: [phone] Absolute Neut # 2.9 10*3/uL 1.8 - 7 10*3/uL [employer] Work Phone: [phone] Basophils/100 WBC (Bld) 0.5 % 0 - 2 % [facility] Work Phone: [phone] Eosinophils (Bld) [#/Vol] 0.0 10*3/uL 0 - 0.5 10*3/uL [employer] Work Phone: [phone] Eosinophils/100 WBC (Bld) 1.0 % 1 - 6 % [employer] Work Phone: 22 Erythrocyte distribution width (RBC) [Ratio] 14.2 % 11.5 - 14.5 % [employer] Work Phone: [phone] Granulocytes/100 WBC (Bld) 68.8 % 40 - 80 % [employer] Work Phone: Hematocrit (Bld) [Volume fraction] 25.8 % Low 35 - 47 % [employer] Work Phone: 1 Hemoglobin (Bld) [Mass/Vol] 8.5 g/dL Low 11.7 - 16 g/dL [employer] Work Phone: Interpretation and review of laboratory results Abnormal [employer] Work Phone: Lymphocytes (Bld) [#/Vol] 0.9 10*3/uL Low 1 - 4.3 10*3/uL [employer] Work Phone: 22 Lymphocytes/100 WBC (Bld) 22.6 % 20 - 40 % [employer] Work Phone: MCH (RBC) [Entitic mass] 28.5 pg 26 - 34 pg [employer] Work Phone: 22 MCHC 33.1 % 32 - 36 % [employer] Work Phone: MCV (RBC) [Entitic vol] 86.4 fL 79 - 98 fL [facility] [employer] Work Phone: 22 Monocytes (Bld) [#/Vol] 0.3 10*3/uL 0 - 0.8 10*3/uL [employer] Work Phone: 22 Monocytes/100 WBC (Bld) 7.1 % 2 - 10 % [facility] [employer] Work Phone: Platelet mean volume (Bld) [Entitic vol] 7.6 fL 7.4 - 10.4 fL [employer] Work Phone: [phone] Platelets (Bld) [#/Vol] 122 10*3/uL Low 140 - 440 10*3/uL [employer] Work Phone: ) [phone] RBC (Bld) [#/Vol] 2.98 10*6/uL Low 3.8 - 5.2 10*6/uL [facility] Work Phone: WBC (Bld) [#/Vol] 4.2 10*3/uL 3.6 - 10.7 10*3/uL [facility] Work Phone: Test Performed by [facility] Prepared Response [facility], [address] [place] [address] [facility] Work Phone: Glucose,Bedsideon 05-13-2019 Glucose [Mass/Vol] 105 mg/dL High 70-100 [facility] Comment on above: Result Comment: Test performed by glucose meter. Results may be 10%-15% lower than serum/plasma values. (CLIA ID [id number]) Performed By: #### H EMDF, CMP3M, LACT3, HA1C2 #### [facility] Prepared Response [address] Hemogram w/ Autodiffon 05-13 Abs Baso Cnt 0.0 10*3/uL Normal 0.0-0.2 [facility] Comment on above: Performed By: #### H EMDRhoda BMP3 #### [address] Abs Neutrophile Cnt 2.9 10*3/uL Normal 1.8-7.0 [facility] Comment on above: Performed By: #### H EMDF BMP3 #### [address] Basophils/100 WBC (Bld) 0.5 % Normal 0.0-2.0 [facility] Comment on above: Performed By: #### H EMDF BMP3 #### [address] Eosinophils (Bld) [#/Vol] 0.0 10*3/uL Normal 0.0-0.5 [facility] Comment on above: Performed By: #### H EMDF BMP3 #### [facility] Prepared Response [address] [address] [place], [place] Eosinophils/100 WBC (Bld) 1.0 % Normal 1.0-6.0 [facility] Comment on above: Performed By: #### H MEGHNA BMP3 #### [address] [address] [place], [place] Erythrocyte distribution width (RBC) [Ratio] 14.2 % Normal 11.5-14.5 [facility] Comment on above: Performed By: #### H MEGHNA BMP3 #### [address] [address] [place] Granulocytes/100 WBC (Bld) 68.8 % Normal 40.0-80.0 [facility] Comment on above: Performed By: #### H MEGHNA BMP3 #### [address] [address] [place], [place] Hematocrit (Bld) [Volume fraction] 25.8 % Low 35.0-47.0 [facility] Comment on above: Performed By: #### H MEGHNA BMP3 #### [address] [place] Hemoglobin (Bld) [Mass/Vol] 8.5 g/dL Low 11.7-16.0 [facility] Comment on above: Performed By: #### H MEGHNA BMP3 #### [address] [address] [place], [place] Lymphocytes (Bld) [#/Vol] 0.9 10*3/uL Low 1.0-4.3 [facility] Comment on above: Performed By: #### H MEGHNA BMP3 #### [address] [place] Lymphocytes/100 WBC (Bld) 22.6 % Normal 20.0-40.0 [facility] Comment on above: Performed By: #### H MEGHNA BMP3 #### [address] MCH (RBC) [Entitic mass] 28.5 pg Normal 26.0-34.0 [facility] Comment on above: Performed By: #### H EMDF, BMP3 #### [facility] [address] [place] MCHC (RBC) [Mass/Vol] 33.1 % Normal 32.0-36.0 [facility] Comment on above: Performed By: #### H EMDF, BMP3 #### [facility] [address] [place] [address] MCV (RBC) [Entitic vol] 86.4 fL Normal 79.0-98.0 [facility] Comment on above: Performed By: #### H EMDF, BMP3 #### [facility] [address] [place], [place] Monocytes (Bld) [#/Vol] 0.3 10*3/uL Normal 0.0-0.8 [facility] Comment on above: Performed By: #### H EMDF, BMP3 #### [address] [address] [place], [place] Monocytes/100 WBC (Bld) 7.1 % Normal 2.0-10.0 [facility] Comment on above: Performed By: #### H EMDF, BMP3 #### [address] [address] [place] Platelet mean volume (Bld) [Entitic vol] 7.6 fL Normal 7.4-10.4 [facility] Comment on above: Performed By: #### H EMDF, BMP3 #### [facility] [address] [place], [place] Platelets (Bld) [#/Vol] 122 10*3/uL Low 140-440 [facility] Comment on above: Performed By: #### H EMDF, BMP3 #### [facility] [address] [place], [place] RBC (Bld) [#/Vol] 2.98 10*6/uL Low 3.80-5.20 [facility] Comment on above: Performed By: #### H EMDF, BMP3 #### [facility] [address] [place], [place] WBC (Bld) [#/Vol] 4.2 10*3/uL Normal 3.6-10.7 [facility] Prepared Response [facility] Comment on above: Performed By: #### H EMDF, BMP3 #### [facility] Prepared Response [address] [address] POCT GlucoseOrdered By: Laverne Fenton on 05-13-2019 Glucose [Mass/Vol] 105 mg/dL High 70 - 100 mg/dL [employer] Work Phone: Comment on above: Test performed by gl ucose meter. Results may be 10%-15% lower than serum/plasma values. (CLIA ID [id number]) Interpretation and review of laboratory results Abnormal [employer] Work Phone: Test Performed by [facility], [address] [place] [address] [employer] Work Phone: STAIN GRAMon 05-13-2019 STAIN GRAM STAIN GRAM --> Status: F No polymorphonuclear cells/lpf. No organisms seen. No organisms seen. Normal [facility] Prepared Response [facility] Comment on above: Order Comment: Speci men Source Comment:Wound Performed By: #### S /GRM, C/JOSE DAVID #### [facility] [employer] [facility] [place], [place] #### CS/BA #### [facility] [place] [facility] Prepared Response [address] [phone] Vancomycinon 05-13-2019 Vancomycin 8.3 ug/mL Low 15.0-20.0 [facility] [employer] Comment on above: Result Comment: . Performed By: #### H EMDF, CMP3M, LACT3, HA1C2 #### [facility] [place] [address] Vancomycin, RandomOrdered By : Nina Fisher on 05-13-2019 Interpretation and review of laboratory results Abnormal [employer] Work Phone: Vancomycin 8.3 ug/mL Low 15 - 20 ug/mL [employer] Work Phone: Comment on above: . Test Performed by [facility], [address] [place] [address] [facility] Work Phone: Comp Panel with Mg Reflexon 05-12-2019 Calcium [Mass/Vol] 7.9 mg/dL Low 8.4-10.4 [facility] Comment on above: Performed By: #### H EMDF, CMP3M, LACT3, HA1C2 #### [facility] [address] [place] [address] ALP [Catalytic activity/Vol] 118 U/L Normal 38-126 [facility] Comment on above: Performed By: #### H EMDF, CMP3M, LACT3, HA1C2 #### [facility] [address] [place] [address] ALT [Catalytic activity/Vol] 27 U/L Normal 13-69 [facility] Comment on above: Performed By: #### H EMDF, CMP3M, LACT3, HA1C2 #### [facility] [address] [place], [place] Anion gap [Moles/Vol] 5 Normal [facility] Comment on above: Performed By: #### H EMDF, CMP3M, LACT3, HA1C2 #### [facility] [address] [place], [place] AST [Catalytic activity/Vol] 38 U/L Normal 15-46 [facility] Comment on above: Performed By: #### H EMDF, CMP3M, LACT3, HA1C2 #### [facility] [address] [place], [place] CO2 [Moles/Vol] 26 mmol/L Normal 22-30 [facility] Comment on above: Performed By: #### H EMDF, CMP3M, LACT3, HA1C2 #### [facility] [address] [place], [place] Glucose [Mass/Vol] 117 mg/dL High 70-100 [facility] Comment on above: Performed By: #### H EMDF, CMP3M, LACT3, HA1C2 #### [facility] [address] [place] Protein [Mass/Vol] 6.2 g/dL Low 6.3-8.2 [facility] Comment on above: Performed By: #### H EMDF, CMP3M, LACT3, HA1C2 #### [address] [address] [place], [place] Urea nitrogen [Mass/Vol] 35 mg/dL High 7-20 [facility] Comment on above: Performed By: #### H EMDF, CMP3M, LACT3, HA1C2 #### [address] [address] [place], [place] Bilirubin [Mass/Vol] 0.6 mg/dL Normal 0.2-1.3 [facility] Comment on above: Performed By: #### H EMDF, CMP3M, LACT3, HA1C2 #### [address] [address] [place] Creatinine [Mass/Vol] 1.28 mg/dL High 0.52-1.25 [facility] Comment on above: Performed By: #### H EMDF, CMP3M, LACT3, HA1C2 #### [address] [address] [place], [place] GFR/1.73 sq M predicted among blacks MDRD (S/P/Bld) [Vol rate/Area] 51.2 mL/min/{1.73_m2} Normal >60 [facility] Comment on above: Performed By: #### H EMDF, CMP3M, LACT3, HA1C2 #### [address] [address] [place] GFR/1.73 sq M predicted among non-blacks MDRD (S/P/Bld) [Vol rate/Area] 42.2 mL/min/{1.73_m2} Normal >60 [facility] Comment on above: Result Comment: Sour ce- MDRD equation with creatinine calibration to IDMS(NKDEP) eGFR not recommended for drug dose adjustment Performed By: #### H EMDF, CMP3M, LACT3, HA1C2 #### [address] [address] [place], [place] Albumin [Mass/Vol] 2.5 g/dL Low 3.5-5.0 [facility] Comment on above: Performed By: #### H EMDF, CMP3M, LACT3, HA1C2 #### [address] [address] Chloride [Moles/Vol] 110 mmol/L High 98-107 [facility] Comment on above: Performed By: #### H EMDF, CMP3M, LACT3, HA1C2 #### [address] [address] Potassium [Moles/Vol] 3.7 mmol/L Normal 3.5-5.1 [facility] Comment on above: Performed By: #### H EMDF, CMP3M, LACT3, HA1C2 #### [address] [address] Sodium [Moles/Vol] 142 mmol/L Normal 135-145 [facility] Comment on above: Performed By: #### H EMDF, CMP3M, LACT3, HA1C2 #### [address] [address] Glucose,Bedsideon 05-12-2019 Glucose [Mass/Vol] 108 mg/dL High 70-100 [facility] Comment on above: Result Comment: Test performed by glucose meter. Results may be 10%-15% lower than serum/plasma values. (CLIA ID [id number]) Performed By: #### B GLU #### [address] [address] HEMOGLOBIN L0RNloipiy By: Flaquito Fisher on 05-12-2019 HbA1c (Bld) [Mass fraction] 7.0 % High 4 - 5.7 % [facility] Work Phone: Comment on above: --HgbA1C levels may not be accurate in patients who have renal disease, received recent blood transfusions, are anemic, or who have dyshemoglobinemia. Interpretation and review of laboratory results Abnormal [facility] Work Phone: Magnesium [Mass/Vol] 154 mg/dL [facility] Work Phone: Test Performed by [facility], [address] [place] [address] [facility] Work Phone: Hemoglobin A1Con 05-12-2019 HbA1c (Bld) [Mass fraction] 154 mg/dL Normal [facility] Comment on above: Performed By: #### H EMDF, CMP3M, LACT3, HA1C2 #### [address] HbA1c (Bld) [Mass fraction] 7.0 % High 4.0-5.7 [facility] Comment on above: Result Comment: --Hg bA1C levels may not be accurate in patients who have renal disease, received recent blood transfusions, are anemic, or who have dyshemoglobinemia. Performed By: #### H EMDF, CMP3M, LACT3, HA1C2 #### [address] [address] Hemogram w/ Autodiffon 05-12 Abs Baso Cnt 0.0 10*3/uL Normal 0.0-0.2 [facility] Comment on above: Performed By: #### H EMDF, CMP3M, LACT3, HA1C2 #### [address] Abs Neutrophile Cnt 3.0 10*3/uL Normal 1.8-7.0 [facility] Comment on above: Performed By: #### H EMDF, CMP3M, LACT3, HA1C2 #### [address] Basophils/100 WBC (Bld) 0.5 % Normal 0.0-2.0 [facility] Comment on above: Performed By: #### H EMDF, CMP3M, LACT3, HA1C2 #### [address] Eosinophils (Bld) [#/Vol] 0.1 10*3/uL Normal 0.0-0.5 [facility] Comment on above: Performed By: #### H EMDF, CMP3M, LACT3, HA1C2 #### [address] Eosinophils/100 WBC (Bld) 1.2 % Normal 1.0-6.0 [facility] Comment on above: Performed By: #### H EMDF, CMP3M, LACT3, HA1C2 #### [address] [address] [place], [place] Erythrocyte distribution width (RBC) [Ratio] 14.1 % Normal 11.5-14.5 [facility] Comment on above: Performed By: #### H EMDF, CMP3M, LACT3, HA1C2 #### [address] [address] [place], [place] Granulocytes/100 WBC (Bld) 67.3 % Normal 40.0-80.0 [facility] Comment on above: Performed By: #### H EMDF, CMP3M, LACT3, HA1C2 #### [address] [address] [place], [place] Hematocrit (Bld) [Volume fraction] 24.8 % Low 35.0-47.0 [facility] Comment on above: Performed By: #### H EMDF, CMP3M, LACT3, HA1C2 #### [address] [address] [place], [place] Hemoglobin (Bld) [Mass/Vol] 8.2 g/dL Low 11.7-16.0 [facility] Comment on above: Performed By: #### H EMDF, CMP3M, LACT3, HA1C2 #### [address] [address] [place] Lymphocytes (Bld) [#/Vol] 1.0 10*3/uL Normal 1.0-4.3 [facility] Comment on above: Performed By: #### H EMDF, CMP3M, LACT3, HA1C2 #### [address] Lymphocytes/100 WBC (Bld) 22.8 % Normal 20.0-40.0 [facility] Comment on above: Performed By: #### H EMDF, CMP3M, LACT3, HA1C2 #### [address] [address] [place] MCH (RBC) [Entitic mass] 28.3 pg Normal 26.0-34.0 [facility] Comment on above: Performed By: #### H EMDF, CMP3M, LACT3, HA1C2 #### [address] [address] [place], [place] MCHC (RBC) [Mass/Vol] 33.1 % Normal 32.0-36.0 [facility] Comment on above: Performed By: #### H EMDF, CMP3M, LACT3, HA1C2 #### [address] MCV (RBC) [Entitic vol] 85.5 fL Normal 79.0-98.0 [facility] Comment on above: Performed By: #### H EMDF, CMP3M, LACT3, HA1C2 #### [address] Monocytes (Bld) [#/Vol] 0.4 10*3/uL Normal 0.0-0.8 [facility] Comment on above: Performed By: #### H EMDF, CMP3M, LACT3, HA1C2 #### [address] Monocytes/100 WBC (Bld) 8.2 % Normal 2.0-10.0 [facility] Comment on above: Performed By: #### H EMDF, CMP3M, LACT3, HA1C2 #### [address] [place] Platelet mean volume (Bld) [Entitic vol] 7.6 fL Normal 7.4-10.4 [facility] Comment on above: Performed By: #### H EMDF, CMP3M, LACT3, HA1C2 #### [address] Platelets (Bld) [#/Vol] 137 10*3/uL Low 140-440 [facility] Comment on above: Performed By: #### H EMDF, CMP3M, LACT3, HA1C2 #### [address] [address] [place], [place] RBC (Bld) [#/Vol] 2.90 10*6/uL Low 3.80-5.20 [facility] Comment on above: Performed By: #### H EMDF, CMP3M, LACT3, HA1C2 #### [address] WBC (Bld) [#/Vol] 4.4 10*3/uL Normal 3.6-10.7 [facility] Comment on above: Performed By: #### H EMDF, CMP3M, LACT3, HA1C2 #### [address] Lactic Acidon 05-12-2019 Lactate [Moles/Vol] 0.7 mmol/L Normal 0.7-2.0 [facility] Comment on above: Performed By: #### H EMDF, CMP3M, LACT3, HA1C2 #### [facility] Prepared Response [address] [address] [place], [place] POCT GlucoseOrdered By: Laverne Fenton on 05-12-2019 Glucose [Mass/Vol] 108 mg/dL High 70 - 100 mg/dL [facility] Work Phone: Comment on above: Test performed by gl ucose meter. Results may be 10%-15% lower than serum/plasma values. (CLIA ID [id number]) Interpretation and review of laboratory results Abnormal [facility] Work Phone: Test Performed by [facility] Prepared Response [facility], [address] [place] [phone] [place] [address] Work Phone: US RETROPERITONEAL LIMITEDOr dered By: Nina Fisher on 05-12-2019 Patient Name: NANCY ROBBINS ---Ultrasound--- Exam Date/Time 05/12/2019 03:03:00 EST Exam US Retroperitoneal Limited Ordering Physician DO FISHER TAHIRAH A Accession Number [id number] CPT4 Codes 30684 () Reason For Exam JH Report Examination: Renal ultrasound Clinical Indication: JH Comparison: None Findings: Multiplanar grayscale sonographic images were obtained through the kidneys and bladder. The right kidney measures 10.9 x 6.1 x 5.4 cm. No renal cysts. No solid renal parenchymal lesion, hydronephrosis, or shadowing renal calculus. Normal echotexture. The left kidney measures 11.2 x 6.2 x 6.4 cm. No renal cysts. Small amount of perinephric fluid. No solid renal parenchymal lesion, hydronephrosis, or shadowing renal calculus. Normal echotexture. Ultrasound images through the bladder demonstrate no gross evidence of bladder wall thickening. Impression: Small amount of nonspecific left perinephric free fluid. Otherwise unremarkable examination of the kidneys and bladder. Report Dictated on Workstation: [id number] --- Final --- Dictated: 05/12/2019 4:24 am Dictating Physician: MD ALEXANDRE JASON Signed Date and Time: 05/12/2019 4:26 am Signed by: MD ALEXANDRE JASON Transcribed Date and Time: 05/12/2019 4:24 [facility] Work Phone: [place], [facility] Incoming Radiology Results From [facility] - 05/12/2019 4:27 AM EST Patient Name: NANCY ROBBINS ---Ultrasound--- Exam Date/Time 05/12/2019 03:03:00 EST Exam US Retroperitoneal Limited Ordering Physician DO FISHER TAHIRAH A Accession Number [id number] CPT4 Codes 86198 () Reason For Exam JH Report Examination: Renal ultrasound Clinical Indication: JH Comparison: None Findings: Multiplanar grayscale sonographic images were obtained through the kidneys and bladder. The right kidney measures 10.9 x 6.1 x 5.4 cm. No renal cysts. No solid renal parenchymal lesion, hydronephrosis, or shadowing renal calculus. Normal echotexture. The left kidney measures 11.2 x 6.2 x 6.4 cm. No renal cysts. Small amount of perinephric fluid. No solid renal parenchymal lesion, hydronephrosis, or shadowing renal calculus. Normal echotexture. Ultrasound images through the bladder demonstrate no gross evidence of bladder wall thickening. Impression: Small amount of nonspecific left perinephric free fluid. Otherwise unremarkable examination of the kidneys and bladder. Report Dictated on Workstation: [id number] --- Final --- Dictated: 05/12/2019 4:24 am Dictating Physician: MD ALEXANDRE JASON Signed Date and Time: 05/12/2019 4:26 am Signed by: MD ALEXANDRE JASON Transcribed Date and Time: 05/12/2019 4:24 [facility] Work Phone: US Retroperitoneal Limitedon 05-12-2019 US Retroperitoneal Limited Patient Name: NANCY ROBBINS Ultrasound Exam Date/Time 05/12/2019 03:03:00 EST Exam US Retroperitoneal Limited Ordering Physician DO FISHER TAHIRAH A Accession Number [id number] CPT4 Codes 60050 () Reason For Exam JH Report Examination: Renal ultrasound Clinical Indication: JH Comparison: None Findings: Multiplanar grayscale sonographic images were obtained through the kidneys and bladder. The right kidney measures 10.9 x 6.1 x 5.4 cm. No renal cysts. No solid renal parenchymal lesion, hydronephrosis, or shadowing renal calculus. Normal echotexture. The left kidney measures 11.2 x 6.2 x 6.4 cm. No renal cysts. Small amount of perinephric fluid. No solid renal parenchymal lesion, hydronephrosis, or shadowing renal calculus. Normal echotexture. Ultrasound images through the bladder demonstrate no gross evidence of bladder wall thickening. Impression: Small amount of nonspecific left perinephric free fluid. Otherwise unremarkable examination of the kidneys and bladder. Report Dictated on Workstation: [id number] Final Dictated: 05/12/2019 4:24 am Dictating Physician: MD ALEXANDRE JASON Signed Date and Time: 05/12/2019 4:26 am Signed by: MD ALEXANDRE JASON Transcribed Date and Time: 05/12/2019 4:24 Normal [facility] Wound Gram stainOrdered By: Nina Fisher on 05-12-2019 Gram Stain Result No polymorphonuclear cells/lpf. No organisms seen. [employer] Work Phone: Test Performed by [facility], [address] [place] [address] Specimen Source Comment:Wound [employer] Work Phone: CBC Auto DifferentialOrdered By: Nina Fisher on 05-11-2019 Absolute Baso # 0.0 10*3/uL 0 - 0.2 10*3/uL [employer] Work Phone: Absolute Neut # 3.0 10*3/uL 1.8 - 7 10*3/uL [employer] Work Phone: 1 Basophils/100 WBC (Bld) 0.5 % 0 - 2 % [facility] Work Phone: Eosinophils (Bld) [#/Vol] 0.1 10*3/uL 0 - 0.5 10*3/uL [employer] Work Phone: Eosinophils/100 WBC (Bld) 1.2 % 1 - 6 % [employer] Work Phone: Erythrocyte distribution width (RBC) [Ratio] 14.1 % 11.5 - 14.5 % [employer] Work Phone: Granulocytes/100 WBC (Bld) 67.3 % 40 - 80 % [employer] Work Phone: Hematocrit (Bld) [Volume fraction] 24.8 % Low 35 - 47 % [employer] Work Phone: Hemoglobin (Bld) [Mass/Vol] 8.2 g/dL Low 11.7 - 16 g/dL [employer] Work Phone: Interpretation and review of laboratory results Abnormal [employer] Work Phone: Lymphocytes (Bld) [#/Vol] 1.0 10*3/uL 1 - 4.3 10*3/uL [employer] Work Phone: Lymphocytes/100 WBC (Bld) 22.8 % 20 - 40 % [employer] Work Phone: MCH (RBC) [Entitic mass] 28.3 pg 26 - 34 pg [facility] Work Phone: 1 MCHC 33.1 % 32 - 36 % [facility] Work Phone: 1 MCV (RBC) [Entitic vol] 85.5 fL 79 - 98 fL [facility] Work Phone: Monocytes (Bld) [#/Vol] 0.4 10*3/uL 0 - 0.8 10*3/uL [facility] Work Phone: Monocytes/100 WBC (Bld) 8.2 % 2 - 10 % [facility] Work Phone: 1 Platelet mean volume (Bld) [Entitic vol] 7.6 fL 7.4 - 10.4 fL [facility] Work Phone: Platelets (Bld) [#/Vol] 137 10*3/uL Low 140 - 440 10*3/uL [facility] Work Phone: RBC (Bld) [#/Vol] 2.90 10*6/uL Low 3.8 - 5.2 10*6/uL [facility] Work Phone: WBC (Bld) [#/Vol] 4.4 10*3/uL 3.6 - 10.7 10*3/uL [facility] Work Phone: Test Performed by [employer], [address] [place] [id number] [facility] Work Phone: Comprehensive Metabolic Pane l w/ Reflex to MGOrdered By: Nina Fisher on 05-11-2019 Albumin [Mass/Vol] 2.5 g/dL Low 3.5 - 5 g/dL [facility] Work Phone: ALP [Catalytic activity/Vol] 118 U/L 38 - 126 U/L [facility] Work Phone: ALT [Catalytic activity/Vol] 27 U/L 13 - 69 U/L [facility] Work Phone: 1 Anion gap [Moles/Vol] 5 mmol/L [facility] Work Phone: AST [Catalytic activity/Vol] 38 U/L 15 - 46 U/L [facility] Work Phone: [phone] Bilirubin [Mass/Vol] 0.6 mg/dL 0.2 - 1 .3 mg/dL [facility] Work Phone: [phone] Calcium [Mass/Vol] 7.9 mg/dL Low 8.4 - 10. 4 mg/dL [facility] Work Phone: [phone] Chloride [Moles/Vol] 110 mmol/L High 98 - 10 7 mmol/L [facility] Work Phone: [phone] CO2 [Moles/Vol] 26 mmol/L 22 - 30 mmol/L [facility] Work Phone: [phone] Creatinine [Mass/Vol] 1.28 mg/dL High 0.52 - 1.25 mg/dL [facility] Work Phone: [phone] EGFR IF NonAfrican Mauritian 42.2 mL/min >60 [facility] Work Phone: [phone] Comment on above: Source- MDRD equatio n with creatinine calibration to IDMS(NKDEP) eGFR not recommended for drug dose adjustment GFR/1.73 sq M.predicted among blacks MDRD (S/P/Bld) [Vol rate/Area] 51.2 mL/min/{1.73_m2} >60 [facility] Work Phone: [phone] Glucose [Mass/Vol] 117 mg/dL High 70 - 100 mg/dL [facility] Work Phone: [phone] Interpretation and review of laboratory results Abnormal [facility] Work Phone: [phone] Potassium [Moles/Vol] 3.7 mmol/L 3.5 - 5.1 mmol/L [facility] Work Phone: [phone] Protein [Mass/Vol] 6.2 g/dL Low 6.3 - 8.2 g/dL [facility] Work Phone: [phone] Sodium [Moles/Vol] 142 mmol/L 135 - 145 mmol/L [facility] Work Phone: [phone] Urea nitrogen [Mass/Vol] 35 mg/dL High 7 - 20 mg/d L [facility] Work Phone: [phone] Lactic Acid, PlasmaOrdered B y: Nina Fisher on 05-11-2019 Lactate [Moles/Vol] 0.7 mmol/L 0.7 - 2 mmol/L [facility] Work Phone: No Panel InformationOrdered By: Nina Fisher on 05-11-2019 Test Performed by [employer], [address] [place] [address] [facility] Work Phone: Vital Signs Date Time Vital Sign Value Performing Clinician Facility 12-10-2024 00:13-0400 Body temperature 98 [degF] Dr. Alba Sorenson MD Work Phone: [phone] [place] [address] 12-10-2024 00:13-0400 Diastolic blood pressure 90 mm[Hg] Dr. Alba Sorenson MD Work Phone: [phone] [place] [address] 12-10-2024 00:13-0400 Heart rate 88 /min Dr. Alba Sorenson MD Work Phone: [phone] [place] [address] 12-10-2024 00:13-0400 Respiratory rate 16 /min Dr. Alba Sorenson MD Work Phone: [phone] [place] [address] 12-10-2024 00:13-0400 SaO2% (BldA) [Mass fraction] 100 % Dr. Alba Sorenson MD Work Phone: [phone] [place] [address] 12-10-2024 00:13-0400 Systolic blood pressure 107 mm[Hg] Dr. Alba Sorenson MD Work Phone: [phone] [place] [address] 12-09-2024 17:50-0400 Body height 172.[address] Alba Sorenson MD Work Phone: [phone] [place] [address] 12-09-2024 17:50-0400 Body mass index (BMI) [Ratio] 42.5 kg/m2 Dr. Alba Sorenson MD Work Phone: [phone] [place] [address] 12-09-2024 17:50-0400 Body weight 126.[address] Alba Sorenson MD Work Phone: [phone] [place] [address] 05-15-2019 10:48-0500 Body temperature 97.81 [degF] Vasu Fenton MD Work Phone: [facility] Work Phone: 05-15-2019 10:48-0500 Diastolic blood pressure 59 mm[Hg] Vasu Fenton MD Work Phone: [facility] Work Phone: 05-15-2019 10:48-0500 Heart rate 57 /min Vasu Fenton MD Work Phone: [facility] Work Phone: 05-15-2019 10:48-0500 Respiratory rate 18 /min Vasu Fenton MD Work Phone: [facility] Work Phone: 05-15-2019 10:48-0500 SaO2% (BldA) [Mass fraction] 95 % Vasu Fenton MD Work Phone: [facility] Work Phone: 05-15-2019 10:48-0500 Systolic blood pressure 146 mm[Hg] Vasu Fenton MD Work Phone: [facility] Work Phone: 05-15-2019 04:27-0500 Body mass index (BMI) [Ratio] 55.32 kg/m2 Vasu Fenton MD Work Phone: [facility] Work Phone: 05-15-2019 04:27-0500 Body weight 132.81 kg Vasu Fenton MD Work Phone: [facility] Work Phone: 05-13-2019 09:30-0500 Body height 154.9 cm Vasu Fenton MD Work Phone: [facility] Work Phone: Encounters Encounter Date Encounter Type Care Provider Facility Start: 01-08-2025 ambulatory Jenn Tipton NP Facility :[facility] Start: 12-09-2024 End: 12-09-2024 Emergency department patient visit Dr. Alba Sorenson MD Work Phone: -Emergency Department Work Phone: Start: 01-16-2022 ambulatory Facility:[facility] Start: 11-01-2021 ambulatory Alba mcghee MD Work Phone: Internal Medicine [facility] [place] Start: 05-11-2019 End: 05-15-2019 Evaluation and management of inpatient Vasu Fenton MD Work Phone: [facility] Comment on above: Chronic pain syndrom e (Primary Dx) Procedures Date Procedure Procedure Detail Performing Clinician Start: 12-09-2024 Methadone measurement, urine Dr. Alba Sorenson MD Work Phone: Start: 12-09-2024 Urnls dip stick/tabl et reagent auto microscopy Dr. Alba Sorenson MD Work Phone: Start: 12-09-[address] Alba Sorenson MD Work Phone: Start: 05-17-2019 Microscopic examinat ion of blood, culture Comment on above: Order Comment: Speci men Source Comment:Blood Performed By: #### H EMDF, CMP3M, LACT3, HA1C2 #### [facility] Prepared Response [address] [address] Start: 05-15-2019 Basic metabolic pane l calcium total Vasu Fenton MD Work Phone: Start: 05-14-2019 Gluc bld gluc mntr d ev cleared fda spec home use Vasu Fenton MD Work Phone: Start: 05-14-2019 Radiologic exam ches t single view Chelly Cha MD Work Phone: Start: 05-14-2019 Gluc bld gluc mntr d ev cleared fda spec home use Vasu Fenton MD Work Phone: Start: 05-14-2019 Basic metabolic pane l calcium total Vasu Fenton MD Work Phone: Start: 05-13-2019 Gluc bld gluc mntr d ev cleared fda spec home use Vasu Fenton MD Work Phone: Start: 05-13-2019 Basic metabolic pane l calcium total Vasu Fenton MD Work Phone: Start: 05-13-2019 Drug screen quantita tive vancomycin Nina Fisher [employer] Work Phone: Start: 05-12-2019 Smr prim src gram/gi emsa stain bct fungi/cell Nina Fisher DO Work Phone: Start: 05-12-2019 Gluc bld gluc mntr d ev cleared fda spec home use Vasu Fenton MD Work Phone: Start: 05-12-2019 Us retroperitoneal r eal time w/image limited Nina Fisher [employer] Work Phone: Start: 05-11-2019 Hemoglobin glycosylated a1c Nina Fisher [employer] Work Phone: Start: 06-17-2018 Mammography Alba laurent MD Work Phone: Plan of Treatment Date Care Activity Detail Author Start: 12-09-2024 [facility] Start: 12-09-2024 [facility] Start: 12-09-2024 Referral to service [facility] Start: 12-09-2024 Consultation [facility] Start: 12-09-2024 Bacteria identified in Urine by Culture Urine Culture [facility] Start: 01-04-2022 Influenza vaccination INFLUENZA (#1) [facility] Start: 04-16-2021 DTaP/Tdap/Td vaccine (2 - Td) DTaP/Tdap/Td vaccine (2 - Td) [employer] Work Phone: Start: 04-16-2021 Urine microalbumin profile DTAP,TDAP,TD (2 - Td or Tdap) [facility] Start: 07-13-2020 ANNUAL PCP TEAM CHRONIC DISEASE VISIT ANNUAL PCP TEAM CHRONIC DISEASE VISIT [facility] Start: 05-15-2020 Creatinine monitoring Creatinine monitoring [employer] Work Phone: Start: 05-15-2020 Potassium monitoring Potassium monitoring [employer] Work Phone: Start: 05-11-2020 A1C test (Diabetic or Prediabetic) A1C test (Diabetic or Prediabetic) [employer] Work Phone: Start: 01-14-2020 Hemoglobin A1c/Hemoglobin.total in Blood HBA1C [facility] Start: 06-17-2019 Hepatitis B screening URINE ALBUMIN:CREATININE RATIO [facility] Start: 06-17-2019 Hepatitis B surface antibody level LDL CHOLESTEROL [facility] Start: 06-17-2019 Mammography MAMMOGRAM [facility] Start: 06-12-2019 End: 06-12-2019 Evaluation and management of inpatient 06/12/2019 Office Visit Infectious Diseases Filiberto Serna, DO [address] [place] [address] [phone] [facility] [place] Start: 07-15-2015 COLORECTAL CANCER SCREENING COLORECTAL CANCER SCREENING [facility] Start: 07-15-2015 FECAL OCCULT BLOOD FECAL OCCULT BLOOD [facility] Start: 04-08-2013 3 comp foot exam completed DIABETIC FOOT EXAM [facility] Start: 04-16-2012 Hepatitis C antibody, confirmatory test DILATED RETINAL EXAM [facility] Start: 09-15-2009 PNEUMOCOCCAL (2 - PCV) PNEUMOCOCCAL (2 - PCV) [facility] Start: 2007 Breast cancer screen Breast cancer screen [facility] Work Phone: Start: 2007 Colon cancer screen colonoscopy Colon cancer screen colonoscopy [facility] Work Phone: Start: 2007 Shingles Vaccine (1 of 2) Shingles Vaccine (1 of 2) [facility] Work Phone: Start: 2007 SHINGRIX VACCINE (1 of 2) SHINGRIX VACCINE (1 of 2) [facility] Start: 2002 COLOGUARD (FIT-DNA) COLOGUARD (FIT-DNA) [facility] Start: 2002 Colonoscopy COLONOSCOPY [facility] Start: [address] COLONOGRAPHY [facility] Start: 2002 SIGMOIDOSCOPY SIGMOIDOSCOPY [facility] Start: 1987 HPV TESTING HPV TESTING [facility] Start: 1978 Cervical cancer screen Cervical cancer screen [facility] Work Phone: Start: 1978 PAP TESTING PAP TESTING [facility] Start: 1975 BP CONTROLLED (<130/80) BP CONTROLLED (<130/80) [facility] Start: 1975 Diabetic microalbuminuria test Diabetic microalbuminuria test [facility] Work Phone: Start: 1975 HEPATITIS C SCREENING HEPATITIS C SCREENING [facility] Start: 1975 HIV SCREENING HIV SCREENING [facility] Start: 1972 HIV screen HIV screen [facility] Work Phone: Start: 1967 3 comp foot exam completed Diabetic foot exam [facility] Work Phone: Start: 1967 Diabetic retinal exam Diabetic retinal exam [facility] Work Phone: Start: 1967 Lipid screen Lipid screen [facility] Work Phone: Start: 1957 COVID-19 VACCINE (#1) COVID-19 VACCINE (#1) [facility] Start: 1957 Hepatitis C screen Hepatitis C screen [facility] Work Phone: Anaerobic Culture Anaerobic Cult ure Microbiology Routine 05/12/2019 9:04 PM EST [employer] Work Phone: Basic metabolic 2000 panel - Serum or Plasma Basic Metabolic Panel Lab Routine Daily until discontinued starting 05/13/2019, 3 completed [employer] Work Phone: Comment on above: Daily until discontinued starting 2019, 3 completed CBC W Auto Different ial panel - Blood CBC Auto Differential Lab Routine Daily until discontinued starting 05/13/2019, 3 completed [employer] Work Phone: Comment on above: Daily until discontinued starting 2019, 3 completed CULTURE BLOOD #1 CULTURE BLOOD # 1 Microbiology STAT 05/11/2019 11:00 PM EST [employer] Work Phone: CULTURE BLOOD #2 CULTURE BLOOD # 2 Microbiology STAT 05/11/2019 11:01 PM EST [employer] Work Phone: Glucose [Mass/volume ] in Serum or Plasma POCT Glucose Point of Care Testing STAT As Needed until discontinued starting 05/11/2019 [employer] Work Phone: Comment on above: As Needed until discontinued starting Initiate Oxygen Ther apy Protocol Initiate Oxygen Therapy Protocol Respiratory Care Routine Daily until discontinued starting 05/11/2019 [employer] Work Phone: Comment on above: Daily until discontinued starting 2019 End: 12-01-2022 Screening mammography bi 2-view breast inc cad BOB SCREENING Radiology Routine Encounter for screening mammogram for breast cancer 1 Occurrences starting 11/01/2021 until 12/01/2022 [facility] Work Phone: Comment on above: 1 Occurrences starting 11/01/2021 until 12/01/2022 Urine culture [facility] End: 05-11-2019 Wound Culture Wound Culture Microbiology Routine One Time for 1 Occurrences starting 05/11/2019 until 05/11/2019 [employer] Work Phone: Comment on above: One Time for 1 Occurrences starting 10/2019 until 05/11/2019 Immunizations Immunization Date Immunization Notes Care Provider [facility] 06-26-2019 hepatitis B vaccine, adult dosage Alba Sorenson MD Work Phone: [facility] 03-13-2019 influenza, injectabl e, quadrivalent, contains preservative Alba Sorenson MD Work Phone: [facility] 02-17-2019 influenza, injectabl e, quadrivalent, preservative free Dr. Alba Sorenson MD Work Phone: [facility] 02-17-2019 influenza, seasonal, injectable, preservative free Alba Sorenson MD Work Phone: [facility] 02-14-2017 influenza, injectabl e, quadrivalent, contains preservative Alba Sorenson MD Work Phone: [facility] 02-03-[address] Alba Sorenson MD Work Phone: [facility] 02-03-2017 influenza, seasonal, injectable, preservative free Alba Sorenson MD Work Phone: [facility] 01-20-2016 influenza, injectabl e, quadrivalent, contains preservative Alba Sorenson MD Work Phone: [facility] 01-19-[address] Alba Sorneson MD Work Phone: [facility] 01-19-2016 influenza, seasonal, injectable, preservative free Alba Sorenson MD Work Phone: [facility] 04-05-2015 influenza, high dose seasonal, preservative-free Alba Sorenson MD Work Phone: [facility] 02-10-2014 influenza, seasonal, injectable Alba Sorenson MD Work Phone: [facility] 02-02-2013 influenza virus vacc ine, unspecified formulation Alba Sorenson MD Work Phone: [facility] 01-28-2012 Fluvirin Alba Rodriguez Work Phone: [facility] Work Phone: 01-28-2012 influenza virus vacc ine, unspecified formulation Alba Sorenson MD Work Phone: [facility] Work Phone: 04-16-2011 tetanus toxoid, redu kurt diphtheria toxoid, and acellular pertussis vaccine, adsorbed Alba Sorenson MD Work Phone: [facility] 09-15-2008 pneumococcal polysaccharide vaccine, 23 valent Alba Sorenson MD Work Phone: [facility] Work Phone: 09-03-2008 pneumococcal polysaccharide vaccine, [address] Alba Sorenson MD Work Phone: [facility] Payers Date Payer Category Payer Self-pay 2024 Unknown [id number] 2024 Unknown [id number] 2019 Medicare [employer] [facility] [id number] 2019-Present [phone] [address] [place] [address] Medicare [id number] 2019 Medicare MEDICARE MEDICAR E PART A AND B xxxxxxxxxxx 2019-Present [phone] [place] [address] xxxxxxxxxxx [id number] 2006 Medicare [id number] Medicaid [id number] Unknown [id number] Unknown [id number] Social History Date Type Detail Facility Start: 05-13-2019 End: 12-09-2024 Tobacco smoking status [facility] Never smoker [facility] Start: 05-13-2019 [facility] intake [facility]finding[facility] Start: 1955 Sex Assigned At Not on file [facility] Work Phone: Tobacco smoking stat [facility] Ex-smoker [facility] End: 09-03-2006 History of tobacco use Current smoker [facility] Start: 02-18-2020 Alcohol intake Current non-dr manager application of alcohol (finding) [facility] Start: 09-22-2019 Alcohol Alcohol [facility] Start: 09-22-2019 Lives Lives [facility] Start: 09-22-2019 Tobacco Use Tobacco Use [facility] Start: 1955 Sex Assigned At Female [facility] Medical Equipment Procedure Code Equipment Code Equipment Origin al Text Equipment Identifier Dates Use one needle f or each dose. 3/day. Start: 07-31-2016 Comment on above: Use one needle for e ach dose. 3/day. Clinical Notes 08-29-2014 to 12-16-2024 Filiberto Serna, - 05/15/2019 8:54 AM Vasu Kirby MD - 05/14/2019 2:23 PM Filiberto Alfaro, - 05/14/2019 9:01 AM Kd Castillo MD - 05/14/2019 1:00 AM ESTDischarge Instr - Diet Note Date & Type Note Facility 12-16-2024 Note [place], [place] DISCHARGE SUMMARY NAME: NANCY ROBBINS [facility] #: [id number] UNIT #: [id number] ROOM: 315 DOCTOR: SHERRELL SPAIN BIRTHDATE: [birth year] DOS: 12/16/2024 CHIEF COMPLAINT AND REASON FOR ADMISSION: She was transferred from [facility] Emergency Department after she was sent in from the [facility], a long-term care facility in the area. She allegedly attempted self-harm by wrapping a call light around her neck. She voiced increased depression over the past 3 weeks and allegedly became combative, verbally aggressive with staff and was resistant to care, refusing medications, care and even food at times. She was very resistant in talking to anybody both at the Emergency Department and in our facility upon her initial admission, stating she just wanted to be left alone to go to sleep. SUMMARY OF HOSPITAL COURSE: During the course of the hospitalization, her labs were reviewed and medications were adjusted as tolerated. Her folic acid level was low and a folic acid B-complex vitamin was started. Celexa was discontinued as she had not received any benefit from the medication and she was started on Remeron SolTab 15 mg at bedtime. She was also started on the Exelon patch to target symptoms of cognitive impairment and help improve and maintain ADLs, behaviors and cognition. With these changes, she tolerated them well with good benefits and minimal side effects. She participated in unit programming and milieu activity. She found the combinations of medications and therapy to be beneficial. On 12/16/2024, she was discharged from the hospital in stable condition as she met the goals of the hospitalization, maximized benefits and voiced readiness for discharge. MEDICAL CONDITION AT DISCHARGE: She was doing well from a medical standpoint. She was taking her medical medications and had no issues with them. PSYCHIATRIC CONDITION AT DISCHARGE: Her agitation, irritability and depression resolved. Her mood stabilized. FUNCTIONAL AND EMOTIONAL CONDITION AT DISCHARGE: Her emotional condition at discharge was stable. She was able to perform her ADLs in the same capacity she was able to perform them at the time of the admission. TOBACCO USE: She was recommended not to use any tobacco-containing products. MEDICATIONS AT DISCHARGE: Senokot 2 tabs p.o. q.a.m., Exelon 9.5 mg transdermal daily., MiraLax powder 17 g daily, ferrous sulfate 325 mg daily, acetaminophen 1000 mg q. 8 hours p.r.n., docusate sodium 100 mg b.i.d., nystatin transdermal cream q. 8 hours., ammonium lactate transdermal cream b.i.d., Remeron SolTab 15 mg at bedtime, vitamin B complex 1 tab daily, Tradjenta 5 mg p.o. daily, Eliquis 5 mg p.o. b.i.d., Lopressor 50 mg p.o. b.i.d., Cordarone 200 mg daily, Humalog insulin a.c. and at bedtime subcu, dextrose with water 25 grams daily p.r.n. IV, Calazime protein ointment b.i.d. transdermal. She was not discharged on multiple antipsychotics. FOLLOWUP CARE: ACTIVITY: As tolerated. NUTRITION AND DIET: Regular diet. [place], [place] DISCHARGE [id number] #: [id number] ROOM: [facility] DOCTOR: SHERRELL SPAIN BIRTHDATE: [birth year] PSYCHIATRIC CONTINUING CARE PLAN: She was encouraged to be compliant with medications and followup plan. She was encouraged to call 911 or go to the ER should she have any suicidal or homicidal thoughts or in the event of an emergency or if she was unable to care for herself outside of the hospital without the help of a support team. DISCHARGE FOLLOWUP: Please refer to the hospital social worker notes for details. PAIN ASSESSMENT: No pain. FINAL DIAGNOSES: * Major depressive disorder. * Dysthymic disorder. DISPOSITION: The patient is being discharged back to the [facility]. PROGNOSIS: Fair. DONAVON Rivera/ANTONIO/JOSE ANTONIO TID: [id number] CM:DISCHARG [id number] SHERRELL RAPHAEL 12/16/[id number] [facility] 11-01-2021 Note Patient Outreach (IN TMMN) NANCY ROBBINS ([id number]) 1955 F Date Time Provider Department 11/01/21 ALBA SORENSON During your visit today, we recorded the following information about you: Allergies As of Date: 11/01/2021 Noted Allergy Reaction AMOXICILLIN 09/24/2005 Comments: yeast infections OXYCODONE 09/04/2016 8 - GI Upset Comments: Nausea, panic attacks, dizzy Date Reviewed: 02/18/2020 Reviewed by: Jenn Gibbons MA - Fully Assessed Visit Diagnosis:Encounter for screening mammogram for breast cancer [Z12.31] Order(s):[facility] SCREENING [[id number]] Order #: [id number] FUTURE Prescriptions as of 11/06/2021 - DULoxetine (CYMBALTA) 20 mg capsule Take 1 capsule by mouth once daily. - gabapentin (NEURONTIN) 300 mg capsule Take 1 capsule by mouth every morning AND 2 capsules daily at bedtime. Do all this for 180 days. - morphine SR (MS CONTIN, ORAMORPH SR) 30 mg 12 hr tablet Take 2 tablets by mouth twice daily for 180 days. May hop picker prescription up to 2 days early for convenience - famotidine (PEPCID) 20 mg tablet Take 1 tablet by mouth twice daily. - Alpha Lipoic Acid 300 mg cap Take 2 capsules by mouth once daily. (for neuropathy) - citalopram (CELEXA) 20 mg tablet Take 1 tablet by mouth once daily. - nystatin (MYCOSTATIN) powder Apply 1 application to affected area twice daily. - apixaban (ELIQUIS) 5 mg tab(s) Take 1 tablet by mouth twice daily. - tiZANidine (ZANAFLEX) 4 mg tablet Take 0.5-1 tablets by mouth twice daily as needed. - metoprolol tartrate, short acting, (LOPRESSOR) 50 mg tablet Take 1 pill in the morning and 2 pills in the evening - Menthol-Zinc Oxide (CALMOSEPTINE) 0.44-20.6 % Apply 1 application to affected area twice daily as needed (apply to affected area). - naloxone 4 mg/actuation nasal spray (NARCAN) Use 1 spray in one nostril. May repeat every 2 to 3 minutes as needed in alternating nostrils until medical assistance becomes available. - COMPOUNDED PRESCRIPTION Diabetic shoes with 3 custom inserts (E11.40) Controlled type 2 diabetes mellitus with diabetic neuropathy, without long-term current use of insulin - Insulin [place], Disposable, (KEY PEN NEEDLE) 32 gauge x 5/32 ndle Use one needle for each dose. 3/day. Problem List As Of Date 11/01/2021 Noted Resolved Type 2 diabetes mellitus, controlled (HCC) [E11*09/24/2005 Essential hypertension [I10] 09/24/2005 Generalized OA [M15.9] 09/24/2005 SCIATICA [M54.30] Reactive depression [F32.9] 01/29/2007 ANXIETY STATE NOS [F41.1] 01/29/2007 Hyperlipemia [E78.5] 06/22/2009 Encounter for long-term (current) use of medica*04/16/2011 07/10/2019 Morbid obesity with BMI of 60.0-69.9, adult (HC*08/29/2014 09/04/2016 Morbid obesity with BMI of 50.0-59.9, adult (HC*09/04/2016 Type 2 diabetes mellitus with diabetic neuropat*10/22/2016 Paroxysmal atrial fibrillation (HCC) [I48.0] 07/11/2018 Encounter Status:Closed by EARNESTINE HUFFMAN on 11/06/21 [facility] 11-25-2020 Note Patient Outreach (IN TMMN) NANCY ROBBINS ([id number]) 1955 F Date Time Provider Department 11/25/20 ALBA SORENSON During your visit today, we recorded the following information about you: Allergies As of Date: 11/25/2020 Noted Allergy Reaction AMOXICILLIN 09/24/2005 Comments: yeast infections OXYCODONE 09/04/2016 8 - GI Upset Comments: Nausea, panic attacks, dizzy Date Reviewed: 02/18/2020 Reviewed by: Jenn Gibbons MA - Fully Assessed Visit Diagnosis:Encounter for screening mammogram for breast cancer [Z12.31] Order(s):[facility] SCREENING [[id number]] Order #: [id number] FUTURE Prescriptions as of 11/28/2020 - DULoxetine (CYMBALTA) 20 mg capsule Take 1 capsule by mouth once daily. - gabapentin (NEURONTIN) 300 mg capsule Take 1 capsule by mouth every morning AND 2 capsules daily at bedtime. Do all this for 180 days. - morphine SR (MS CONTIN, ORAMORPH SR) 30 mg 12 hr tablet Take 2 tablets by mouth twice daily for 180 days. May hop picker prescription up to 2 days early for convenience - famotidine (PEPCID) 20 mg tablet Take 1 tablet by mouth twice daily. - Alpha Lipoic Acid 300 mg cap Take 2 capsules by mouth once daily. (for neuropathy) - citalopram (CELEXA) 20 mg tablet Take 1 tablet by mouth once daily. - nystatin (MYCOSTATIN) powder Apply 1 application to affected area twice daily. - apixaban (ELIQUIS) 5 mg tab(s) Take 1 tablet by mouth twice daily. - tiZANidine (ZANAFLEX) 4 mg tablet Take 0.5-1 tablets by mouth twice daily as needed. - metoprolol tartrate, short acting, (LOPRESSOR) 50 mg tablet Take 1 pill in the morning and 2 pills in the evening - Menthol-Zinc Oxide (CALMOSEPTINE) 0.44-20.6 % Apply 1 application to affected area twice daily as needed (apply to affected area). - naloxone 4 mg/actuation nasal spray (NARCAN) Use 1 spray in one nostril. May repeat every 2 to 3 minutes as needed in alternating nostrils until medical assistance becomes available. - COMPOUNDED PRESCRIPTION Diabetic shoes with 3 custom inserts (E11.40) Controlled type 2 diabetes mellitus with diabetic neuropathy, without long-term current use of insulin - Insulin [place], Disposable, (KEY PEN NEEDLE) 32 gauge x 5/32 ndle Use one needle for each dose. 3/day. Problem List As Of Date 11/25/2020 Noted Resolved Type 2 diabetes mellitus, controlled (HCC) [E11*09/24/2005 Essential hypertension [I10] 09/24/2005 Generalized OA [M15.9] 09/24/2005 SCIATICA [M54.30] Reactive depression [F32.9] 01/29/2007 ANXIETY STATE NOS [F41.1] 01/29/2007 Hyperlipemia [E78.5] 06/22/2009 Encounter for long-term (current) use of medica*04/16/2011 07/10/2019 Morbid obesity with BMI of 60.0-69.9, adult (HC*08/29/2014 09/04/2016 Morbid obesity with BMI of 50.0-59.9, adult (HC*09/04/2016 Type 2 diabetes mellitus with diabetic neuropat*10/22/2016 Paroxysmal atrial fibrillation (HCC) [I48.0] 07/11/2018 Encounter Status:Closed by SpecleR on 11/28/20 [facility] 05-15-2019 History of Present illness Narrative [facility] - Infectious Diseases Attending Progress Note Subjective: Following for polymicrobial panniculitis. Reviewed interim history and available chart/notes/labs and studies. Overall stable and reviewed Plastics input - no acute interventions. Patient now agreeable to go to ECF. PICC placed now and ready to go to ECF. Objective: Vitals: BP 138/63 Pulse 67 Temp 96.9 F (36.1 C) (Temporal) Resp 18 Ht 5' 1 (1.549 m) Wt 292 lb 12.8 oz (132.8 kg) SpO2 98% BMI 55.32 kg/m Intake/Output Summary (Last 24 hours) at 05/15/2019 0854 Last data filed at 05/15/2019 0427 Gross per 24 hour Intake 440 ml Output 1650 ml Net -1210 ml Physical Exam Constitutional: General: She is not in acute distress. Appearance: Normal appearance. She is well-developed. She is obese. She is not ill-appearing, toxic-appearing or diaphoretic. Comments: Morbidly obese HENT: Head: Normocephalic and atraumatic. Right Ear: Ear canal and external ear normal. Left Ear: Ear canal and external ear normal. Nose: Nose normal. Mouth/Throat: Mouth: Mucous membranes are moist. Pharynx: Oropharynx is clear. No oropharyngeal exudate. Eyes: General: No scleral icterus. Right eye: No discharge. Left eye: No discharge. Conjunctiva/sclera: Conjunctivae normal. Pupils: Pupils are equal, round, and reactive to light. Neck: Musculoskeletal: Normal range of motion and neck supple. No neck rigidity or muscular tenderness. Thyroid: No thyromegaly. Trachea: Trachea normal. No tracheal deviation. Cardiovascular: Rate and Rhythm: Normal rate and regular rhythm. Heart sounds: No murmur. Pulmonary: Effort: Pulmonary effort is normal. No respiratory distress. Breath sounds: Normal breath sounds. No wheezing. Abdominal: General: Abdomen is flat and protuberant. Bowel sounds are normal. There is distension. Palpations: Abdomen is soft. There is no hepatomegaly or splenomegaly. Tenderness: There is no tenderness. There is no guarding. Hernia: No hernia is present. Genitourinary: Comments: South present Musculoskeletal: Normal range of motion. General: No tenderness or deformity. Comments: Large pannus with skin sloughing and a mild rash Lymphadenopathy: Cervical: No cervical adenopathy. Skin: General: Skin is warm and dry. Coloration: Skin is not jaundiced. Findings: No erythema. Neurological: General: No focal deficit present. Mental Status: She is alert and oriented to person, place, and time. Mental status is at baseline. Cranial Nerves: Cranial nerves are intact. No cranial nerve deficit. Sensory: Sensation is intact. Motor: No weakness. Psychiatric: Mood and Affect: Mood normal. Behavior: Behavior normal. Thought Content: Thought content normal. Labs: Component Value Date/Time NA 137 05/15/2019 0327 K 3.7 05/15/2019 0327 CL 105 05/15/2019 032 CO2 26 05/15/2019 032 BUN 28 (H) 05/15/2019 032 CREATININE 0.95 05/15/2019 032 GLUCOSE 96 05/15/2019326 CALCIUM 7.4 (L) 05/15/2019 032 PROT 6.2 (L) 05/11/2019 2301 LABALBU 2.5 (L) 05/11/2019 2301 BILITOT 0.6 05/11/2019 2301 ALKPHOS 118 05/11/2019 2301 AST 38 05/11/2019 2301 ALT 27 05/11/2019 2301 Component Value Date/Time WBC 4.8 05/15/20197 HGB 8.4 (L) 05/15/2019 032 HCT 25.4 (L) 05/15/2019 032 PLT 103 (L) 05/15/2019 032 GRANULOCYTES 55.1 05/15/2019 032 LYMPHOPCT 31.6 05/15/2019326 MONOPCT 9.8 05/15/2019 032 LABEOS 2.7 05/15/2019326 BASOPCT 0.8 05/15/2019 032 NEUTROABS 2.6 05/15/2019 032 Micro: Blood cultures: Blood cultures: Lab Results Component Value Date BC No growth at 1 day. No growth at 2 days. 05/11/2019 BC No growth at 1 day. No growth at 2 days. 05/11/2019 Component Collected Lab Aerobic Culture Abnormal 05/12/2019 9:04 PM [facility] Mixed enteric yazmin present. Aerobic Culture Abnormal 05/12/2019 9:04 PM [facility] Pseudomonas aeruginosa Aerobic Culture 05/12/2019 9:04 PM [facility] Rare Reviewed all relevant labs and microbiology data. Lines: PICC left basilic 43 cm Radiography/Echo/Other: CXR 05-14-2019 Antimicrobials, Start/End Dates: Piperacillin-tazobactam Impression: 1. Polymicrobial panniculitis - Serratia fonticola, Enterococcus faecalis, Aerococcus and Staphylococcus simulans and here Pseudomonas 2. Morbid obesity Plan: 1. PICC placed already 2. Planning piperacillin-tazobactam till 06-12-2019 3. CoPAT in chart 4. OK to DC 5. Follow-up with me Pager: [phone] Hospitalist Progress Note 05/14/2019 2:23 PM Subjective: Admit Date: 05/11/2019 PCP: No primary care provider on file. Interval History: Patient in no acute distress, reports constipation has improved. No overnight issues. Denies chest pain, sob, abdominal pain, nausea, vomiting, diarrhea, fevers, or chills. DIET CARB CONTROL; Dietary Nutrition Supplements: Wound Healing Oral Supplement Date 05/14/19 0000 - 05/14/19 2359 Shift 7663-7170 0633-5326 8726-3779 24 Hour Total INTAKE P.O.(mL/kg/hr) 240 240 Shift Total(mL/kg) 240(1.7) 240(1.7) OUTPUT Urine(mL/kg/hr) 1000(0.9) 650 1650 Shift Total(mL/kg) 1000(7.3) 650(4.7) 1650(12) Weight (kg) 137.6 137.6 137.6 137.6 Patient Vitals for the past 96 hrs (Last 3 readings): Weight 05/14/19 0351 (!) 303 lb 6.2 oz (137.6 kg) 05/13/19 0554 (!) 306 lb 8 oz (139 kg) 05/11/19 2232 (!) 309 lb (140.2 kg) Medications: dextrose sodium chloride 100 mL/hr at 05/11/19 2300 lidocaine 1 % injection 5 mL Intradermal Once sodium chloride flush 10 mL Intravenous 2 times per day sodium chloride flush 10 mL Intravenous 2 times per day heparin flush 250 Units Intravenous 2 times per day piperacillin-tazobactam 3.375 g Intravenous Q8H morphine 60 mg Oral 2 times per day apixaban 5 mg Oral BID citalopram 20 mg Oral Daily gabapentin 300 mg Oral BID metoprolol 100 mg Oral Dinner metoprolol tartrate 50 mg Oral QAM AC miconazole Topical Q8H collagenase Topical Q8H VENELEX Topical Q8H stomahesive in petrolatum Topical 3 times per day polyethylene glycol 17 g Oral Daily sodium chloride flush 10 mL Intravenous 2 times per day Recent Labs 05/11/19 2301 05/13/19 0357 05/14/19 0328 WBC 4.4 4.2 5.5 HGB 8.2* 8.5* 8.4* PLT 137* 122* 122* Recent Labs 05/11/19 2301 05/13/19 0357 05/14/19 0328 NA 142 138 138 K 3.7 3.6 3.4* CL 110* 106 106 CO2 26 28 26 BUN 35* 24* 26* CREATININE 1.28* 1.00 0.98 GLUCOSE 117* 99 88 Recent Labs 05/11/19 2301 AST 38 ALT 27 BILITOT 0.6 ALKPHOS 118 No results found for: TRIG, HDL, LDLCALC, CHOL No results for input(s): INR in the last 72 hours. No results for input(s): CKTOTAL, CKMB, TROPONINI in the last 72 hours. Objective: Vitals: BP 135/76 Pulse 65 Temp 97.4 F (36.3 C) (Temporal) Resp 18 Ht 5' 1 (1.549 m) Wt (!) 303 lb 6.2 oz (137.6 kg) SpO2 97% BMI 57.32 kg/m Pulse Ox: SpO2 Av.2 % Min: 94 % Max: 97 % Supplemental O2: PHYSICAL EXAM: Constitutional: Appearance: She is obese. HENT: Head: Normocephalic and atraumatic. Mouth/Throat: Mouth: Mucous membranes are moist. Eyes: Extraocular Movements: Extraocular movements intact. Conjunctiva/sclera: Conjunctivae normal. Neck: Musculoskeletal: Neck supple. No muscular tenderness. Cardiovascular: Rate and Rhythm: Normal rate and regular rhythm. Pulmonary: Effort: Pulmonary effort is normal. No respiratory distress. Abdominal: Tenderness: There is no tenderness. Comments: Large overhanging panus Genitourinary: Comments: South catheter in place Musculoskeletal: General: No swelling or tenderness. Skin: General: Skin is warm. Findings: Erythema (abdomen and mons pubis) present. Comments: Multiple draining wounds on abdomen and panus. Skin overlying Mons pubis is thickened and edematous Neurological: Mental Status: She is alert. Psychiatric: Mood and Affect: Mood normal. Behavior: Behavior normal. Thought Content: Thought content Pannus Mid abdomen Assessment Principal Problem: Abdominal panniculus, symptomatic Active Problems: Essential hypertension Hyperlipidemia USP (current) use of anticoagulants Paroxysmal atrial fibrillation (HCC) Cellulitis Morbid obesity (HCC) JH (acute kidney injury) (HCC) DM (diabetes mellitus), type 2 (HCC) Resolved Problems: * No resolved hospital problems. * Panniculititis: IV ABx; repeat Cx, ID following Morbid obesity Hypokalemia: replenish, recheck Anemia: stable Septic shock:resolved JH: per chart, initial Cr >5; resolving Assessment Cont Zosyn; end date 06/12/2019; PICC ordered Plastic eval: high risk and poor surgical candidate.no surgical intervention planned DC pending placement, PICC line See orders, continue POC Advance Directive: Full [facility] - Infectious Diseases Attending Progress Note Subjective: Following for polymicrobial panniculitis. Reviewed interim history and available chart/notes/labs and studies. Overall stable and reviewed Plastics input - no acute interventions. Patient now agreeable to go to ECF. PICC ordered and will plan a course of IV piperacillin-tazobactam and follow-up with me. Wound examined today. Objective: Vitals: BP 135/65 Pulse 62 Temp 98.5 F (36.9 C) (Temporal) Resp 18 Ht 5' 1 (1.549 m) Wt (!) 303 lb 6.2 oz (137.6 kg) SpO2 97% BMI 57.32 kg/m Intake/Output Summary (Last 24 hours) at 05/14/2019 0901 Last data filed at 05/14/2019 0349 Gross per 24 hour Intake 300 ml Output 3900 ml Net -3600 ml Physical Exam Constitutional: General: She is not in acute distress. Appearance: Normal appearance. She is well-developed. She is obese. She is not ill-appearing, toxic-appearing or diaphoretic. Comments: Morbidly obese HENT: Head: Normocephalic and atraumatic. Right Ear: Ear canal and external ear normal. Left Ear: Ear canal and external ear normal. Nose: Nose normal. Mouth/Throat: Mouth: Mucous membranes are moist. Pharynx: Oropharynx is clear. No oropharyngeal exudate. Eyes: General: No scleral icterus. Right eye: No discharge. Left eye: No discharge. Conjunctiva/sclera: Conjunctivae normal. Pupils: Pupils are equal, round, and reactive to light. Neck: Musculoskeletal: Normal range of motion and neck supple. No neck rigidity or muscular tenderness. Thyroid: No thyromegaly. Trachea: Trachea normal. No tracheal deviation. Cardiovascular: Rate and Rhythm: Normal rate and regular rhythm. Heart sounds: No murmur. Pulmonary: Effort: Pulmonary effort is normal. No respiratory distress. Breath sounds: Normal breath sounds. No wheezing. Abdominal: General: Abdomen is flat and protuberant. Bowel sounds are normal. There is distension. Palpations: Abdomen is soft. There is no hepatomegaly or splenomegaly. Tenderness: There is no tenderness. There is no guarding. Hernia: No hernia is present. Genitourinary: Comments: South present Musculoskeletal: Normal range of motion. General: No tenderness or deformity. Comments: Large pannus with skin sloughing and a mild rash, some odor present Wound examined with various skin breakdown and surface ulcers, no obvious drainage Lymphadenopathy: Cervical: No cervical adenopathy. Skin: General: Skin is warm and dry. Coloration: Skin is not jaundiced. Findings: No erythema. Neurological: General: No focal deficit present. Mental Status: She is alert and oriented to person, place, and time. Mental status is at baseline. Cranial Nerves: Cranial nerves are intact. No cranial nerve deficit. Sensory: Sensation is intact. Motor: No weakness. Psychiatric: Mood and Affect: Mood normal. Behavior: Behavior normal. Thought Content: Thought content normal. Labs: Component Value Date/Time NA 138 05/14/2019 0328 K 3.4 (L) 05/14/2019 0328 CL 106 05/14/2019 0328 CO2 26 05/14/2019 0328 BUN 26 (H) 05/14/2019 0328 CREATININE 0.98 05/14/2019 0328 GLUCOSE 88 05/14/2019 0328 CALCIUM 7.6 (L) 05/14/2019 0328 PROT 6.2 (L) 05/11/2019 2301 LABALBU 2.5 (L) 05/11/2019 230 BILITOT 0.6 05/11/2019 230 ALKPHOS 118 05/11/2019 230 AST 38 05/11/2019 230 ALT 27 05/11/2019 230 Component Value Date/Time WBC 5.5 05/14/2019 0328 HGB 8.4 (L) 05/14/2019 0328 HCT 25.6 (L) 05/14/2019 0328 PLT 122 (L) 05/14/2019 0328 GRANULOCYTES 65.0 05/14/20198 LYMPHOPCT 24.3 05/14/20198 MONOPCT 8.6 05/14/20198 LABEOS 1.7 05/14/2019327 BASOPCT 0.4 05/14/2019327 NEUTROABS 3.6 05/14/20198 Micro: Blood cultures: Blood cultures: Lab Results Component Value Date BC No growth at 1 day. 05/11/2019 BC No growth at 1 day. 05/11/2019 Reviewed all relevant labs and microbiology data. Lines: PIV Radiography/Echo/Other: No new imaging Antimicrobials, Start/End Dates: Piperacillin-tazobactam Impression: 1. Polymicrobial panniculitis - Serratia fonticola, Enterococcus faecalis, Aerococcus and Staphylococcus simulans 2. Morbid obesity Plan: 1. PICC today 2. Planning piperacillin-tazobactam till 06-12-2019 3. CoPAT in chart Pager: [phone] PLASTIC SURGERY & HAND SURGERY STAFF NOTE: Agree with present plan of medical management. OK for transfer back to [facility] from PLS standpoint. She can have her wound managed as an outpatient as well by the Wound Center at [facility]. Further wound issues can and should be addressed by the plastic surgeon on staff at [facility], Dr. Vasiliy Valle MD. Please recall as needed. Thank you, Roshan Mancia MD Pager: [phone] Nutrition Assessment Type and Reason for Visit: Initial, Positive Nutrition Screen(wounds) Nutrition Recommendations: 1. Recommend reduce CHO restriction to 45g/meal to promote healthy wt loss. Monitor need for low Na restriction related to BLE +3 edema. 2. Per MNT protocol, initiate Bernard at 10am and 2pm. Bernard provides 90 kcals, 14 g amino acids, and 300 mg Vitamin C per packet serving. 3. Monitor intakes, wts, and labs. RD will follow weekly. Nutrition Assessment: Pt transferred from [facility] with abdominal panniculus. Pt with h/o anemia, DM, GERD, HLD, neuropathy, osteoarthritis, paroxysmal atrial fib, thrombocytopenia. CT abdomen and pelvis showed cellulitis with inflammatory stranding infiltrating the low anterior abdominal wall panniculus as well as the notably swollen mons pubis and external labia/perineum.Per EPIC- pt was supposed to have a panniculectomy with on 05/19/18. Per plastic surgery note- Given BMI, patient is a poor surgical candidate with high risk of complications including DVT, PE, and perioperative even in an elective setting. Pt reported poor appetite since admission due to N/V. She stated she has not been able to eat anything since admission. Pt declined Ensure supplements but stated she likes Bernard. Pt denied any chewing/swallowing deficits. Malnutrition Assessment: Malnutrition Status: At risk for malnutrition Context: Acute illness or injury Findings of the 6 clinical characteristics of malnutrition (Minimum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 up within 7 calendar days (77268) FOLLOW UP TESTING, PENDING RESULTS OR REFERRALS AT TRANSITIONAL CARE VISIT: [] Yes [] No PENDING STUDIES: No DISPOSITION: Home FACILITY/HOME CARE AGENCY NAME: Follow up with No follow-up provider specified. on INSTRUCTIONS TO MA/SW: Please call patient on day after discharge (must document patient contacted within 2 business days of discharge). FOLLOW UP QUESTIONS FOR MA/SW: 1. Did you get medications filled and taking them as instructed from discharge? 2. Are you following your discharge instructions from your hospital stay? 3. Please confirm patient is scheduled for a follow up appointment within the above time frame. DISCHARGE TIME: > 30 minutes SIGNED: Vasu Fenton MD 05/15/2019, 8:35 AM documented in this encounter [facility] Work Phone: 05-15-2019 Hospital Discharge instructions Vasu Fenton MD - 05/15/2019 8:35 AM EST As tolerated; guard rails up. Up with assistance Vasu Fenton MD - 05/15/2019 8:35 AM EST ? Good nutrition is important when healing from an illness, injury, or surgery. Follow any nutrition recommendations given to you during your hospital stay. ? If you were given an oral nutrition supplement while in the hospital, continue to take this supplement at home. You can take it with meals, in-between meals, and/or before bedtime. These supplements can be purchased at most local grocery stores, pharmacies, and chain [employer]-stores. ? If you have any questions about your diet or nutrition, call the hospital and ask for the dietitian. Nancy Coffman RN - 05/13/2019 3:48 PM EST Continuity of Care Form Patient Name: Nancy Robbins : 1955 Admit date: 05/11/2019 Discharge date: 05/15/19 Code Status Order: Full Code Advance Directives: Advance Care Flowsheet Documentation Date/Time Healthcare Directive Type of Healthcare Directive Copy in Chart Healthcare Agent Appointed Healthcare Agent's Name Healthcare Agent's Phone Number 05/11/19 [phone] No, patient does not have an advance directive for healthcare treatment -- -- -- -- -- Admitting Physician: Vasu Fenton MD PCP: No primary care provider on file. Discharging Nurse: Nancy Coffman RN Discharging Hospital Unit/Room#: 1530/[id number] Discharging Unit Emergency Contact: No emergency contact information on file. Past Surgical History: Past Surgical History: Procedure Laterality Date BONY PELVIS SURGERY b/l ISCHIAL WOUND DEBRIDEMENT CHOLECYSTECTOMY HERNIA REPAIR Immunization History: There is no immunization history on file for this patient. 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 Paroxysmal atrial fibrillation (HCC) I48.0 Cellulitis L03.90 Morbid obesity (HCC) E66.01 JH (acute kidney injury) (HCC) N17.9 DM (diabetes mellitus), type 2 (HCC) E11.9 Isolation/Infection: Isolation No Isolation Patient Infection Status None to display Nurse Assessment: Last Vital Signs: BP (!) 152/68 Pulse 66 Temp 99.3 F (37.4 C) (Temporal) Resp 18 Ht 5' 1 (1.549 m) Wt (!) 306 lb 8 oz (139 kg) SpO2 96% BMI 57.91 kg/m Last documented pain score (0-10 scale): Last Weight: Wt Readings from Last 1 Encounters: 05/13/19 (!) 306 lb 8 oz (139 kg) Mental Status: oriented, alert, coherent, logical, thought processes intact and able to concentrate and follow conversation IV Access: - PICC - site L Upper Arm, insertion date: 05/14/19 Nursing Mobility/ADLs: Walking Dependent Transfer Dependent Bathing Assisted Dressing Assisted Toileting Dependent Feeding Independent Er Nurse Dependent Med Delivery whole Wound Care Documentation and Therapy: Elimination: Continence: Bowel: Yes Bladder: No Urinary Catheter: Insertion Date: 05/11/19 Colostomy/Ileostomy/Ileal Conduit: No Date of Last BM: 05/15/19 Intake/Output Summary (Last 24 hours) at 05/13/2019 1547 Last data filed at 05/13/2019 1100 Gross per 24 hour Intake Output 6100 ml Net -6100 ml I/O last 3 completed shifts: In: - Out: 6100 [Urine:6100] Safety Concerns: At Risk for Falls Impairments/Disabilities: None Nutrition Therapy: Current Nutrition Therapy: - Oral Diet: carb control; wound healing oral supplement Routes of Feeding: Oral Liquids: Thin Liquids Daily Fluid Restriction: no Last Modified Barium Swallow with Video (Video Swallowing Test): not done Treatments at the Time of Hospital Discharge: Respiratory Treatments: none Oxygen Therapy: is not on home oxygen therapy. Ventilator: - No ventilator support Rehab Therapies: Physical Therapy and Occupational Therapy Weight Bearing Status/Restrictions: No weight bearing restirctions Other Medical Equipment (for information only, NOT a DME order): wheelchair and hospital bed Other Treatments: wound care Patient's personal belongings (please select all that are sent with patient): None RN SIGNATURE: MANAGEMENT/SOCIAL WORK SECTION Inpatient Status Date: Readmission Risk Assessment Score: Readmission Risk Risk of Unplanned Readmission: 11 Discharging to Facility/ Agency Name:[facility] Address:[address] [place] [address] Dialysis Facility (if applicable) Name: Address: Dialysis Schedule: Phone: Fax: Formula Checker/Chemist Food signature: ICIAN SECTION Prognosis: Fair Condition at Discharge: Stable Rehab Potential (if transferring to Rehab): Good Recommended Labs or Other Treatments After Discharge: cbc,cmp Physician Certification: I certify the above information and transfer of Nancy Robbins is necessary for the continuing treatment of the diagnosis listed and that she requires Group Home Facility for less 30 days. Update Admission H&P: No change in H&P PHYSICIAN SIGNATURE: Vasu Fenton MD - 05/15/2019 Controlled Substance Monitoring: Acute and Chronic Pain Monitoring: RX Monitoring 05/15/2019 Acute Pain Prescriptions Prescription exceeds daily limit for a specific reason. See comments or note. OARRS reviewed; confirmed home dose and active script. Short script given to resume 60mg Morphine ER Q12 as prescribed by patient's outpatient provider. 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 Long-term (current) use of anticoagulants Paroxysmal atrial fibrillation (HCC) Atrial fibrillation Cellulitis Cellulitis and abscess of unspecified site Morbid obesity (HCC) Morbid obesity JH (acute kidney injury) (HCC) Acute kidney failure, unspecified DM (diabetes mellitus), type 2 (HCC) Type II or unspecified type diabetes mellitus without mention of complication, not stated as uncontrolled documented in this encounter [employer] Work Phone: Evaluation note* Diagnosis Encounter for screening mammogram for breast cancer documented in this encounter [facility] noteNo assessment information availableWNorwalk [facility] Work Phone: Reason for referral (narrative)* Diagnostic Procedure Only (Routine) - Pending Review Specialty Diagnoses / Procedures Referred By Contac t Referred To Contact [facility] Diagnoses Encounter for screening mammogram for breast cancer Procedures BOB SCREENING SCREENING MAMMOGRAPHY BI 2-VIEW BREAST INC CAD Alba Sorenson MD [address] [place] [address] [facility] [address] [place] [address] Referral ID Status Reason Start Date Expiration Date Visits Requested Visits Authorized [id number] Pending Review Auto-Generat ed Referral 11/01/2021 12/01/2022 1 1 [facility] for referral (narrative)No reason for referral information availableWNorwalk Memorial Hospital Work Phone: Summary Purpose Family History No Family History Records Found Relationship Condition Age at Onset Recorded Date/T carmelo father Diabetes mellitus Unknown mother Arthritis Unknown Hypertension Unknown Cardiac disease Unknown sister Arthritis Unknown Diabetes mellitus Unknown High blood cholesterol Unknown Advance Directives No Advanced Directives Records FoundDocuments on File Type Date Recorded Patient Process Controls Technician Expl anation Advance Directives and Living Will Power of Laundry Folder Latest Code Status on File Code Status Date Activated Date Inactivated Comments Full Code 05/11/2019 9:14 PM Advance Directive Response Recorded Date/ Time Do you have a Healthcare Power of Laundry Folder? No December 09, 2024 5:56pm Chief Complaint and Reason for Visit Chief Complaint Admit Date mental health December 09, 2024 5:5 0pm Additional Source Comments INFORMATION SOURCE (unrecogn ized section and content) DATE CREATED AUTHOR 06/05/2019 [facility] DATE CREATED AUTHOR AUTHOR'S ORGANIZ ATION 09/21/2019 [facility] [place] DATE CREATED AUTHOR AUTHOR'S ORGANIZ ATION 11/06/2021 [facility] DATE CREATED AUTHOR AUTHOR'S ORGANIZ ATION 01/16/2022 [facility] DATE CREATED AUTHOR AUTHOR'S ORGANIZ ATION 01/02/2025 [facility] DATE CREATED AUTHOR AUTHOR'S ORGANIZ ATION 01/10/2025 [facility] Source Comments (unrecognize d section and content) In the event this informatio n is protected by the Federal Confidentiality of Alcohol and Drug Abuse Patient Records regulations: The Federal rules restrict any use of the information to criminally investigate or prosecute any alcohol or drug abuse patient.[facility] Care Teams (unrecognized sec tion and content) Spring Former Machine Relationship Specialty Start Date End Date Alba Sorenson MD [address] [place] [address] PCP - General 09/24/05 Team Status: Active Member Role/Relationship Status Dates Dr. Alba Sorenson MD Primary Care Provider Active Team Status: Inactive Member Role/Relationship Status Dates Dr. Alba Sorenson MD Primary Care Provider Active Start: December 09, 2024 End: December 09, 2024 Dr. Ez Oquendo MD Emergency Provider Active Sta rt: December 09, 2024 End: December 09, 2024 Goals (unrecognized section and content) Goals may be documented in a n alternate section FOR RECORDS PERTAINING TO PATIENTS WHO ARE OR HAVE BEEN ENROLLED IN A CHEMICAL DEPENDENCY/SUBSTANCEABUSE PROGRAM, SOME INFORMATION MAY BE OMITTED. This clinical summary was aggregated from multiple sources. Caution should be exercised in using it in the provision of clinical care. This summary normalizes information from multiple sources, and as a consequence, information in this document may materially change the coding, format and clinical context of patient data. In addition, data may be omitted in some cases. CLINICAL DECISIONS SHOULD BE BASED ON THE PRIMARY CLINICAL RECORDS. [facility]. provides no warranty or guarantee of the accuracy or completeness of information in this document.
[2025-01-12] MEDS: 0.9% Normal Saline (1000mL) 1,000 ML 100 ML IV ×2 (01:08→16:05)
[2025-01-12] MEDS: 0.9% Normal Saline (250mL Bag) 250 ML 999 ML IV (04:35)
[2025-01-12] MEDS: 0.9% Normal Saline (500mL Bag) 500 ML 999 ML IV (05:33)
[2025-01-12 05:49] LABS: Hematocrit 23.9 % (37-47); Hemoglobin 7.3 g/dL (12.0-15.0); Immature Granulocytes Count 0.030 X10^3/uL (0.0-0.0); Mean Corp Hgb Conc 30.5 g/dL (32-36); Mean Corpuscular Volume 102.1 fL (81-99); Mean Platelet Vol. 10.2 fl (6.2-12.0); NRBC Flagged by Analyzer 0 % (0-5); Platelet Count 100 K/mm3 (150-450); RBC Distribution Width CV 17.3 % (11.6-14.6); RBC Distribution Width SD 64.7 fl (35.1-43.9); Red Blood Count 2.34 M/mm3 (4.2-5.4); White Blood Count 7.5 K/mm3 (4.4-11.0)
--- NOTE | 2025-01-12 05:55 | ECHOD_ITS ---
Reason For Study Reason For Study: CHF Procedure This was a 2D Doppler, Color Flow transthoracic echocardiogram. Exam performed portable in ICU/CCU. Left Ventricle Normal LV size. Left ventricular systolic function is normal. The left ventricular ejection fraction is 60 %. No evidence for diastolic dysfunction. Right Ventricle Normal RV size. Normal systolic function. Atria The left atrium is mildly enlarged. Normal right atrium. Mitral Valve The mitral valve is structurally normal. No prolapse or stenosis seen. The mitral papillary muscle appears thickened and/or calcified. Mild (1+) mitral valve insufficiency. Tricuspid Valve Normal tricuspid valve. Mild (1+) tricuspid valve insufficiency. Pulmonary artery systolic pressure is 35 mmHg. Aortic Valve Trisinus/trileaflet aortic valve. Mild focal aortic valve thickening. There is no aortic stenosis. Trivial aortic valve insufficiency. Pulmonic Valve Normal pulmonic valve. Mild (1+) pulmonic valve insufficiency. Great Vessels Normal sized aortic root. Pericardium/Pleural No pericardial effusion. Left pleural effusion. MMode/2D Measurements & Calculations LVIDd: 4.6 cm IVSd: 0.95 cm Ao root diam: 3.1 cm LVIDs: 2.9 cm LVPWd: 1.0 cm RVDd: 3.8 cm FS: 37.3 % LAV(MOD-bp): 65.1 ml LVAd ap4: 30.7 cm2 SV(MOD-sp4): 76.2 ml LAV(MOD-bp) Indexed: 25.3 ml/m2 LVLd ap4: 7.1 cm SI(MOD-sp4): 29.6 ml/m2 LAV(MOD-sp2): 62.1 ml EDV(MOD-sp4): 111.3 ml LAV(MOD-sp4): 66.8 ml EDV(sp4-el): 112.8 ml LVAs ap4: 15.7 cm2 LVLs ap4: 5.8 cm ESV(MOD-sp4): 35.1 ml ESV(sp4-el): 35.8 ml EF(MOD-sp4): 68.5 % EF(sp4-el): 68.2 % SV(sp4-el): 77.0 ml LA A4 area: 21.6 cm2 LA dimension(2D): 4.7 cm RA A4 area: 10.9 cm2 Time Measurements MV dec time: 0.26 sec Doppler Measurements & Calculations MV E max sancho: 68.0 cm/sec Lat Peak E' Sancho: 10.0 cm/sec Med Peak E' Sancho: 7.0 cm/sec MV A max sancho: 68.0 cm/sec E/E' lat: 6.8 E/E' med: 9.8 MV E/A: 1.0 Ao V2 max: 147.5 cm/sec LV V1 max: 97.1 cm/sec MV dec slope: 266.1 cm/sec2 Ao max P.7 mmHg LV V1 max P.8 mmHg Ao V2 mean: 109.3 cm/sec Ao mean P.2 mmHg Ao V2 VTI: 43.7 cm PA V2 max: 107.2 cm/sec PI end-d sancho: 106.6 cm/sec TR max sancho: 260.7 cm/sec TR max P.2 mmHg ECHO/Echo Complete Interpretation Summary The left ventricular ejection fraction is 60 %. The left atrium is mildly enlarged. Mild (1+) mitral valve insufficiency. Mild (1+) tricuspid valve insufficiency. Left pleural effusion. The study was technically difficult. Ordering Physician: Jame Coello Referring Physician: Jame Coello Performed By: Barb Polanco, FRANSISCO, RVT
[2025-01-12 06:27] LABS: AST(SGOT) 154 U/L (<=31); Alanine Aminotransfer ALT/SGPT 51 U/L (<=34); Albumin, Serum 1.6 g/dL (3.4-4.8); Alkaline Phosphatase 187 U/L (35-104); Anion Gap 9 (5-15); BUN 90 mg/dL (4-19); BUN/Creat Ratio 28.0 RATIO (10-20); Calcium,Total 8.4 mg/dL (7.6-11.0); Carbon Dioxide 18.8 mmol/L (21.0-32.0); Chloride 111 mmol/L (98-108); Estimated Creatinine Clearance 24.39 ml/min (50-250); Globulin 4.5 g/dL (2.2-4.2); Glucose 104 mg/dL (70-99); Potassium 4.9 mmol/L (3.3-5.1)
[2025-01-12] MEDS: Norepinephrine 8 MG in 0.9% Normal Saline (250mL Bag) 242 ML 9.4 MG CONT INF (07:10)
--- NOTE | 2025-01-12 07:24 | PCM.PN.HOSP ---
Reason for Visit Chief Complaint: Abnormal labs, shortness of breath Subjective Subjective Feels ok. On Stacey Ragsdale. Objective Data Objective Data Vital Signs: Vital Signs Temp Pulse Resp BP Pulse Ox O2 Del Method 36.3 C L 53 L 16 93/51 L 94 Room Air 01/12/25 06:30 01/12/25 06:30 01/12/25 06:30 01/12/25 07:10 01/12/25 06:30 01/12/25 06:30 Oxygen Delivery Method Room Air Weight: 156.1 kg Body Mass Index (BMI) 65.0 Intake & Output: Intake and Output for Last 24 Hours 01/10/25 01/11/25 01/12/25 23:59 23:59 23:59 Intake Total 1050 / 1050 1000 / 1000 Balance 1050 / 1050 1000 / 1000 Lab / Micro Data 01/12/25 05:27 01/12/25 05:27 Labs: Laboratory Results - last 24 hr 01/11/25 19:01: Blood Type A POSITIVE, Antibody Screen NEGATIVE 01/11/25 19:06: WBC 9.1, RBC 2.49 L, Hgb 7.9 L, Hct 25.7 L, MCV 103.2 H, MCH 31.7, MCHC 30.7 L, RDW Std Deviation 65.4 H, RDW Coeff of Radha 17.3 H, Plt Count 120 L, MPV 10.7, Immature Gran % (Auto) 0.700, Neut % (Auto) 69.3, Lymph % (Auto) 16.4 L, Treasure % (Auto) 9.0, Eos % (Auto) 4.2, Baso % (Auto) 0.4, Absolute Neuts (auto) 6.3, Absolute Lymphs (auto) 1.49, Nucleated RBC % 0.2, Differential Comment SCANNED, Platelet Estimate SLT DEC, Polychromasia 1+, Anisocytosis 2+, Sodium 136, Potassium 5.7 H, Chloride 109 H, Carbon Dioxide 16.3 L, Anion Gap 11, BUN 92 H, Creatinine 3.19 H, Estim Creat Clear Calc 24.72 L, Est GFR (MDRD) Non-Af 15 L, BUN/Creatinine Ratio 28.9 H, Glucose 99, Calcium 8.7, Total Bilirubin 1.03, AST 181 H, ALT 57 H, Alkaline Phosphatase 209 H, NT pro BNP II 1107 H, Total Protein 6.9, Albumin 1.7 L, Globulin 5.2 H, Albumin/Globulin Ratio 0.3 L, Lipase 68 01/11/25 20:30: PT 24.9 H, INR 2.2, APTT 41.4 H 01/11/25 21:05: Sodium 139, Potassium 4.7, Chloride 111 H, Carbon Dioxide 19.4 L, Anion Gap 9, BUN 89 H, Creatinine 3.10 H, Estim Creat Clear Calc 25.44 L, Est GFR (MDRD) Non-Af 16 L, BUN/Creatinine Ratio 28.7 H, Glucose 106 H, Calcium 8.2 01/12/25 05:27: WBC 7.5, RBC 2.34 L, Hgb 7.3 L, Hct 23.9 L, MCV 102.1 H, MCH 31.2, MCHC 30.5 L, RDW Std Deviation 64.7 H, RDW Coeff of Radha 17.3 H, Plt Count 100 L, MPV 10.2, Immature Gran % (Auto) 0.400, Neut % (Auto) 69.9, Lymph % (Auto) 15.3 L, Treasure % (Auto) 9.7, Eos % (Auto) 4.3, Baso % (Auto) 0.4, Absolute Neuts (auto) 5.2, Absolute Lymphs (auto) 1.14, Nucleated RBC % 0, Sodium 139, Potassium 4.9, Chloride 111 H, Carbon Dioxide 18.8 L, Anion Gap 9, BUN 90 H, Creatinine 3.22 H, Estim Creat Clear Calc 24.39 L, Est GFR (MDRD) Non-Af 15 L, BUN/Creatinine Ratio 28.0 H, Glucose 104 H, Calcium 8.4, Total Bilirubin 0.87, AST 154 H, ALT 51 H, Alkaline Phosphatase 187 H, Total Protein 6.2, Albumin 1.6 L, Globulin 4.5 H, Albumin/Globulin Ratio 0.4 L Radiography Diagnostic Testing: Radiology Impression Abdomen/Pelvis CT 01/11/25 21:00 IMPRESSION: 1. Right lung base consolidation concerning for infiltrates. 2. Small right pleural effusion. 3. Mild cardiomegaly. 4. Moderate ascites. 5. Heterogeneous liver with a micronodular contour, compatible with chronic hepatocellular disease. 6. Prominent fatty infiltration of the campbell of the ascending colon, suggestive of chronic colitis. 7. Moderate bilateral renal atrophy. Punctate 2 mm calcification in the left renal pelvis, either a small nonobstructing stone or vascular calcification. 8. Extensive subcutaneous generalized edema. 9. Moderate levoconvex lumbar scoliosis with spondylosis, unchanged. Findings concerning for ankylosing spondylitis. Please correlate clinically. 10. Additional nonacute findings, as described above. Reading Location: [facility] Physical Exam Const alert Constitutional Narrative: on Stacey Hugger. HEENT head/scalp atraumatic and moist oral mucous membranes Resp normal respiratory effort, no retractions, no use of accessory muscles and clear to auscultation bilaterally Cardio regular rate, regular rhythm, S1 normal heart sound and S2 normal heart sound GI normal to inspection, nondistended, normoactive bowel sounds, soft to palpation, non-tender and non-distended GI Narrative: obese. Extremity General Extremity: edema bilateral lower extremity Details: moderate Neuro Sensorium / Orientation: awake and alert Assessment & Plan Assessment/Plan (1) Shock: PLAN: undifferentiated septic (pneumonia v compressive atelectasis) v cardiogenic (given massive edema) or combination thereof on norepinephrine. Not a candidate for 30 cc/kg of IVF given anasarca/ascites/pleural effusions. on CTX and azithromycin check BCx, strep and legionella antigens, SCx, UA, UCx (not done on admission) consult CCM. (2) JH (acute kidney injury): PLAN: baseline creatinine 0.99 (12/09/24), now up to 3.22 FENa 2.6. Suspect prernal and ATN. Kidney US shows normal right kidney. Nonvisualized left kidney (though seen on CT) Monitor. (3) CHF (congestive heart failure): PLAN: chronic. HFpEF. compensated. echo shows an EF of no diuresis given shock (4) Anemia: PLAN: chronic. Hg down to 7.3. Ordered 1 unit of PRBCs Pt with post-menopausal bleeding. Pelvic US limited Follow up with [facility] as outpt. PLAN: Plan chronic medical conditions: obesity class III: complicates care and recovery dementia: rivastigmine afib: continue amiodarone. hold metoprolol given shock. VTE prophylaxis: SCDs. Charges/Coding Visit Charges Inpatient E&M: 64856 Subs Hosp L2
--- NOTE | 2025-01-12 07:33 | US_ITS ---
PROCEDURE: KIDNEY AND BLADDER 01/12/2025 REASON FOR EXAM: JH TECHNIQUE: Procedure Code: USKI Modality: US Procedure: KIDNEY AND BLADDER COMPARISON: Abdomen and pelvis CT of 01/11/2025. FINDINGS: The left kidney is not visualized, reportedly at least partly due to by body habitus.. The right kidney is measured at 9.6 x 5.1 x 4.8 cm. Estimated volume of 122.5 mL. Normal cortical thickness of 13 mm. [place]: None. Cysts or Masses: A left mid renal cyst is measured at 13 x 12 x 10 mm. Other: None. US/Kidney and Bladder IMPRESSION: 1. Left kidney nonvisualized. 2. The right kidney demonstrate no hydronephrosis or other acute process. Reading Location: [place] [id number]
[2025-01-12] MEDS: Lactated Ringers 1,000 ML 999 ML IV (08:59)
[2025-01-12] MEDS: 0.9% Saline Lock 10 ML Syringe IV (08:59)
--- NOTE | 2025-01-12 09:18 | NURSING ---
[facility] called for update, update provided at this time
--- NOTE | 2025-01-12 09:22 | CASEMGMT ---
Per chart review, pt is from [facility]. RN CM to the pt room at this time to discuss DC planning. Pt states that she lives [facility] and wishes to return. Pt denies wanting to review a list of other SNF that are local and in-network with her insurance and states that she prefers to return to [facility]. Pt denies further questions or concerns at this time. [facility] notified and plans to send updates. CM to follow.
--- NOTE | 2025-01-12 09:30 | CON.PCM.CC_ITS ---
Assessment & Plan Assessment/Plan (1) Shock: (2) Pneumonia: PLAN: Plan RECOMMENDATIONS: 1. Recommend proceeding with fluid resuscitation due to ongoing hemodynamic instability. 2. No indication for diuretics. 3. Start scheduled midodrine as ordered. 4. Levophed to maintain a mean arterial pressure at or above 65 mmHg. 5. Check urine analysis along with culture. Obtain lactate level. 6. Send type and cross. Plan to transfuse 1 unit of packed red blood cells. 7. If recurrent vaginal bleeding occurs, consultation will be placed to API DEVELOPER. 8. Continue empiric antimicrobials. IMPRESSIONS: 1. Multifactorial shock While underlying sepsis related to pneumonia certainly a possibility, I do also suspect a hypovolemic etiology with recent postmenopausal vaginal bleeding noted by the patient. Accordingly, I would recommend that we proceed with fluid resuscitation and transfusion of blood products, as ordered. The patient's BNP was only mildly elevated and echocardiogram is pending. The patient will be maintained on empiric antibiotics in the interim. If she were to have recurrent vaginal bleeding, consultation will be placed to API DEVELOPER. Levophed will be continued to maintain a mean arterial pressure at or above 65 mmHg. Scheduled midodrine will be initiated. 2. Acute kidney injury Most likely prerenal in etiology in the setting of #1. Renal ultrasound is currently pending. Check urine analysis as ordered along with culture. Continue to monitor urine output. No current indication for renal replacement therapy. 3. Postmenopausal vaginal bleeding Case was discussed briefly with API DEVELOPER, who recommended possible pelvic MRI, given suboptimal transvaginal ultrasound. Recommend outpatient follow-up with API DEVELOPER after discharge if the patient remains clinically stable. If she were to develop recurrent vaginal bleeding, consultation can be placed while inpatient. 4. History of super morbid obesity/GERD/thrombocytopenia/hypertension/diabetes mellitus Complicates care, management, recovery and prognosis. Continue supportive measures as noted above. TIME: 42 minutes of critical care time, independent of procedures, was spent addressing the patient's multifactorial shock, acute kidney injury, postmenopausal vaginal bleeding, review of all data and collaboration with the care team. HPI Consult Data Date of Consult: 01/12/25 HPI Narrative Reason for Consultation: Shock HPI Narrative: The patient is a 69-year-old female, with a history as outlined below, who presented to the emergency department for the evaluation of abnormal outpatient laboratory workup. The patient has a known history of super morbid obesity, chronic kidney disease, diabetes mellitus, and paroxysmal atrial fibrillation. The patient, at presentation, reported several days of shortness of breath along with postmenopausal vaginal bleeding of approximately 3 weeks duration. The patient currently resides at a local longterm facility. At presentation, the patient was noted to be afebrile but was bradycardic with a presenting blood pressure of 65/32 mmHg. She was maintaining appropriate oxygen saturations on room air. Laboratory evaluation revealed a normal white blood cell count with a hemoglobin of 7.9 g/dL and platelet count of 120,000. INR was elevated at 2.2. Chemistry profile was notable for a potassium of 5.7, chloride of 109, bicarbonate of 16 and creatinine of 3.19. AST and ALT were increased at 181 and 57, respectively. BNP was elevated at 1100. Transvaginal ultrasound was extremely limited but demonstrated no large pelvic mass. CT abdomen/pelvis demonstrated a right lung base consolidation along with a small right pleural effusion and moderate ascites. While the patient was initially placed on antimicrobials, for reasons that are not entirely clear to me, she was administered IV Lasix, despite her hemodynamic instability. As a consequence, the patient became progressively more hypotensive, ultimately requiring the initiation of vasopressor support. She was admitted to the ICU for further management. [facility] Medical History (Updated 01/12/25 @ 07:[address] Mika Em, ) Normochromic normocytic anemia Paroxysmal atrial fibrillation Essential (primary) hypertension Difficulty balancing when standing Excessive weight loss Late effect of medical and surgical care complication Abdominal wall pain in both lower quadrants Edema of abdominal wall Intertrigo Panniculitis Rupture of hernia Neuropathy Kidney failure Breast lump in female History of blood transfusion UTI (urinary tract infection) Back problem Arthritis Panniculitis Pressure sore of left ischium, unstageable Right ischial pressure sore, stage 2 Pressure ulcer Osteoarthritis Depression Umbilical hernia Anemia Thrombocytopenia Atrial fibrillation with rapid ventricular response (12/2017) Abdominal panniculus Hyperlipidemia Morbid obesity Type 2 diabetes mellitus Home Medications ?Medication ?Instructions ?Recorded ?Last Taken ?Type alpha lipoic acid 300 mg capsule 600 mg PO DAILY neuro vladimir 09/21/19 01/11/25 History metoprolol tartrate 50 mg tablet 50 mg PO BID #60 tabs 09/23/19 01/11/25 Rx acetaminophen 500 mg capsule 1,000 mg PO Q8H PRN pain 12/09/24 11/16/24 History amiodarone 200 mg tablet 200 mg PO DAILY Irregular He art 12/09/24 01/11/25 History rate ferrous sulfate 325 mg (65 mg 325 mg PO DAILY Iron Sup plement 12/09/24 01/11/25 History iron) tablet (FeroSul) magnesium hydroxide 400 mg/5 mL 30 ml PO DAILY PRN con stipation 12/09/24 12/07/24 History oral suspension (Milk of Magnesia) mirabegron 25 mg tablet,extended 25 mg PO DAILY Overac tive Bladder 12/09/24 01/11/25 History release 24 hr (Myrbetriq) polyethylene glycol 3350 17 17 g PO DAILY Laxitve 10/2801/11/25 History gram/dose oral powder (Gavilax) sennosides 8.6 mg-docusate sodium 2 tab-cap PO QHS Sto ol Softener 12/09/24 01/10/25 History 50 mg tablet (Senna with Docusate Sodium) sitagliptin phosphate 100 mg 100 mg PO DAILY Diabetes 12/09/24 01/11/25 History tablet (Januvia) folic acid-vit B6-vit B12 0.8 1 tab PO DAILY Supplemen t 01/11/25 01/11/25 History mg-10 mg-115 mcg tablet (Foltabs 800) mirtazapine 15 mg tablet 15 mg PO QHS Antidepressant 01/11/25 01/11/25 History rivastigmine 13.3 mg/24 hour 1 patch topical DAILY Dem entia 01/11/25 01/11/25 History transdermal patch Allergy/AdvReac Type Severity Reaction Status Date / Time amoxicillin AdvReac Other Verified 01/12/25 01:07 latex AdvReac Other Verified 01/12/25 01:07 Family History Father Diabetes Mother Arthritis Hypertension Heart disease Sister Arthritis Diabetes Heart disease Hypertension High cholesterol Surgical History History of herniorrhaphy Hx of cholecystectomy Bilateral ischial wound debridement Social History housing: assisted Smoking Status: Never smoker alcohol intake: never substance use type: does not use ROS ROS Narrative 10 systems were reviewed with pertinent positives as noted in the HPI above. Physical Exam Const alert and no apparent distress Constitutional Narrative: Super morbidly obese. Resting comfortably in bed. General Appearance: cooperative HEENT normocephalic, head/scalp atraumatic and moist oral mucous membranes Eyes PERRL, EOMs intact bilaterally and conjunctivae normal Neck supple General: trachea midline Chest inspection of chest normal Resp normal respiratory effort Auscultation: diminished lung sounds Cardio S1 normal heart sound and S2 normal heart sound Rate: bradycardia GI normal to inspection, nondistended, normoactive bowel sounds Extremity Extremity Narrative: Wrapped lower extremities. General Extremity: Negative for clubbing or edema Neuro CN's II-XII intact bilaterally and no focal motor deficits Psych cooperative and affect normal Lab / Micro Data 01/12/25 05:27 01/12/25 05:27 Labs: Laboratory Results - last 24 hr 01/11/25 19:01: Blood Type A POSITIVE, Antibody Screen NEGATIVE, Crossmatch See Detail 01/11/25 19:06: WBC 9.1, RBC 2.49 L, Hgb 7.9 L, Hct 25.7 L, MCV 103.2 H, MCH 31.7, MCHC 30.7 L, RDW Std Deviation 65.4 H, RDW Coeff of Radha 17.3 H, Plt Count 120 L, MPV 10.7, Immature Gran % (Auto) 0.700, Neut % (Auto) 69.3, Lymph % (Auto) 16.4 L, Howell % (Auto) 9.0, Eos % (Auto) 4.2, Baso % (Auto) 0.4, Absolute Neuts (auto) 6.3, Absolute Lymphs (auto) 1.49, Nucleated RBC % 0.2, Differential Comment SCANNED, Platelet Estimate SLT DEC, Polychromasia 1+, Anisocytosis 2+, Sodium 136, Potassium 5.7 H, Chloride 109 H, Carbon Dioxide 16.3 L, Anion Gap 11, BUN 92 H, Creatinine 3.19 H, Estim Creat Clear Calc 24.72 L, Est GFR (MDRD) Non-Af 15 L, BUN/Creatinine Ratio 28.9 H, Glucose 99, Calcium 8.7, Total Bilirubin 1.03, AST 181 H, ALT 57 H, Alkaline Phosphatase 209 H, NT pro BNP II 1107 H, Total Protein 6.9, Albumin 1.7 L, Globulin 5.2 H, Albumin/Globulin Ratio 0.3 L, Lipase 68 01/11/25 20:30: PT 24.9 H, INR 2.2, APTT 41.4 H 01/11/25 21:05: Sodium 139, Potassium 4.7, Chloride 111 H, Carbon Dioxide 19.4 L , Anion Gap 9, BUN 89 H, Creatinine 3.10 H, Estim Creat Clear Calc 25.44 L, Est GFR (MDRD) Non-Af 16 L, BUN/Creatinine Ratio 28.7 H, Glucose 106 H, Calcium 8.2 01/12/25 05:27: WBC 7.5, RBC 2.34 L, Hgb 7.3 L, Hct 23.9 L, MCV 102.1 H, MCH 31.2, MCHC 30.5 L, RDW Std Deviation 64.7 H, RDW Coeff of Radha 17.3 H, Plt Count 100 L, MPV 10.2, Immature Gran % (Auto) 0.400, Neut % (Auto) 69.9, Lymph % (Auto) 15.3 L, Howell % (Auto) 9.7, Eos % (Auto) 4.3, Baso % (Auto) 0.4, Absolute Neuts (auto) 5.2, Absolute Lymphs (auto) 1.14, Nucleated RBC % 0, Sodium 139, Potassium 4.9, Chloride 111 H, Carbon Dioxide 18.8 L, Anion Gap 9, BUN 90 H, C reatinine 3.22 H, Estim Creat Clear Calc 24.39 L, Est GFR (MDRD) Non-Af 15 L, B UN/Creatinine Ratio 28.0 H, Glucose 104 H, Calcium 8.4, Total Bilirubin 0.87, A ST 154 H, ALT 51 H, Alkaline Phosphatase 187 H, Total Protein 6.2, Albumin 1.6 L , Globulin 4.5 H, Albumin/Globulin Ratio 0.4 L Imaging Radiology Impression Abdomen/Pelvis CT 01/11/25 21:00 IMPRESSION: 1. Right lung base consolidation concerning for infiltrates. 2. Small right pleural effusion. 3. Mild cardiomegaly. 4. Moderate ascites. 5. Heterogeneous liver with a micronodular contour, compatible with chronic hepatocellular disease. 6. Prominent fatty infiltration of the campbell of the ascending colon, suggestive of chronic colitis. 7. Moderate bilateral renal atrophy. Punctate 2 mm calcification in the left renal pelvis, either a small nonobstructing stone or vascular calcification. 8. Extensive subcutaneous generalized edema. 9. Moderate levoconvex lumbar scoliosis with spondylosis, unchanged. Findings concerning for ankylosing spondylitis. Please correlate clinically. 10. Additional nonacute findings, as described above. Reading Location: [id number] Charges/Coding Procedures Hospitalists Procedures: 76448 Critical Care 1st Hr
--- NOTE | 2025-01-12 09:31 | CASEMGMT ---
Addendum entered by Rosette Leggett 01/12/25 10:16: Pt is a bed hold can can return when medically ready. Rosette Leggett DC Planning Asst. Original Note: Discharge Planning Updates sent to [facility] with note asking if pt will need precert and request for copies of advanced directives. Awaiting response. Rosette Leggett DC Planning Asst.
[2025-01-12 10:00] LABS: Mucous, Urine 0 SEEN /hpf (<or=2+); Red Blood Cells-Urine 0 SEEN /hpf (0-5)
[2025-01-12 10:03] LABS: Color, Urine Yellow (Yellow); Glucose, Dipstick Normal (Normal); Ketone-Dipstick Negative (Negative); Leukocyte Esterase-Dipstick 500 /ul (Negative); Nitrite-Dipstick Negative (Negative); Occult Blood-Urine 250 /ul (Negative); Protein-Dipstick 30 mg/dl (Negative); Specific Gravity, Urine 1.015 (1.002-1.030); Urine Bilirubin Dipstick Negative (Negative)
[2025-01-12 10:08] LABS: Squamous Epithelial Cells - UA 0-5 SEEN /hpf (5-10)
[2025-01-12] MEDS: LINAGLIPTIN 5 MG TABLET PO (10:10)
[2025-01-12] MEDS: Polyethylene Glycol 3350 17 GM PACKET PO (10:10)
--- NOTE | 2025-01-12 11:09 | RAD_ITS ---
PROCEDURE: CXR FOR LINE PLACEMENT 01/12/2025 REASON FOR EXAM: PICC LINE PLACEMENT TECHNIQUE: Procedure Code: RADCXRLP Modality: DX Procedure: CXR FOR LINE PLACEMENT COMPARISON: Chest x-ray of 09/21/2019. RAD/CXR for Line Placement IMPRESSION: Lungs are hypoinflated, also with moderate right hemidiaphragm elevation. No g ross acute pneumonic process is seen. A left PICC line is seen, with tip projecting over the SVC. No pneumothorax is noted. No pleural effusion is seen. The cardiomediastinal silhouette is within the normal range for age and techniq ue. Prominent arthritic changes about the shoulders again noted. Right upper quadrant abdominal surgical clips are seen. Reading Location: [place] [id number]
[2025-01-12] MEDS: TITRATION PARAMETER CHANGE 1 EACH IV (11:11)
[2025-01-12] MEDS: Albuterol 2.5 MG/3 ML VIAL.NEB. INHALATION ×3 (11:30→19:42)
[2025-01-12] MEDS: Azithromycin 500 MG in 0.9% Normal Saline (250mL Bag) 250 ML 250 MG IV (22:10)
[2025-01-12] MEDS: Senna/Docusate Sodium 1 Tablet 2 TABLET PO (22:10)
[2025-01-12] MEDS: Norepinephrine 8 MG in 0.9% Normal Saline (250mL Bag) 242 ML 26.3 MG CONT INF (22:15)
[2025-01-13] VITALS (34 sets, daily range): BP systolic 90–150; BP diastolic 32–129; PULSE 58–68; RESP 14–22; TEMP 36.3–36.9; O2SAT 92–100; BMI 56.7
[2025-01-13] MEDS: 0.9% Normal Saline (1000mL) 1,000 ML 100 ML IV ×3 (01:59→23:08)
[2025-01-13] MEDS: Norepinephrine 8 MG in 0.9% Normal Saline (250mL Bag) 242 ML 37.5 MG CONT INF (05:18)
[2025-01-13 05:40] LABS: Hematocrit 27.2 % (37-47); Hemoglobin 8.8 g/dL (12.0-15.0); Immature Granulocytes Count 0.150 X10^3/uL (0.0-0.0); Mean Corp Hgb Conc 32.4 g/dL (32-36); Mean Corpuscular Volume 97.8 fL (81-99); Mean Platelet Vol. 9.3 fl (6.2-12.0); NRBC Flagged by Analyzer 0.2 % (0-5); POSITIVE DIFFERENTIAL YES; Platelet Count 131 K/mm3 (150-450); RBC Distribution Width CV 17.9 % (11.6-14.6); RBC Distribution Width SD 63.1 fl (35.1-43.9); Red Blood Count 2.78 M/mm3 (4.2-5.4); White Blood Count 13.0 K/mm3 (4.4-11.0)
[2025-01-13 05:44] LABS: Differential Indicated SCAN CRITERIA MET
[2025-01-13 06:07] LABS: Anion Gap 10 (5-15); BUN 79 mg/dL (4-19); BUN/Creat Ratio 30.5 RATIO (10-20); Calcium,Total 8.1 mg/dL (7.6-11.0); Carbon Dioxide 16.4 mmol/L (21.0-32.0); Chloride 115 mmol/L (98-108); Estimated Creatinine Clearance 27.66 ml/min (50-250); Glucose 166 mg/dL (70-99); Potassium 4.0 mmol/L (3.3-5.1)
[2025-01-13 06:27] LABS: Differential Comment SCANNED
[2025-01-13 06:28] LABS: Anisocytosis 1+; Crenated RBC 1+; Polychromasia 1+; Target Cells RARE
[2025-01-13] MEDS: Albuterol 2.5 MG/3 ML VIAL.NEB. INHALATION ×3 (06:57→19:32)
--- NOTE | 2025-01-13 07:32 | PN.HOSP_ITS ---
Reason for Visit Chief Complaint: Abnormal labs, shortness of breath Subjective Subjective Remains of pressors. Denies complaints. Objective Data Objective Data Vital Signs: Vital Signs Temp Pulse Resp BP Pulse Ox O2 Del Method 36.7 C 64 20 H 114/45 L 97 Room Air 01/13/25 07:00 01/13/25 07:00 01/13/25 07:00 01/13/25 07:00 01/13/25 07:00 01/13/25 07:00 Oxygen Delivery Method Room Air Weight: 136.1 kg Body Mass Index (BMI) 56.7 Intake & Output: Intake and Output for Last 24 Hours 01/11/25 01/12/25 01/13/25 23:59 23:59 23:59 Intake Total 1050 / 1050 3993.17 / 4002.55 1270.58 / 1270.58 Output Total 800 / 800 250 / 250 Balance 1050 / 1050 3193.17 / 3202.55 1020.58 / 1020.58 Lab / Micro Data 01/13/25 05:30 01/13/25 05:30 Labs: Laboratory Results - last 24 hr 01/11/25 19:01: Crossmatch See Detail 01/12/25 08:25: Lactic Acid 1.1 01/12/25 09:48: Urine Color Yellow, Urine Clarity Cloudy, Urine pH 6.0, Ur Specific Lockwood 1.015, Urine Protein 30 H, Urine Glucose (UA) Normal, Urine Ketones Negative, Urine Occult Blood 250 H, Urine Nitrite Negative, Urine Bilirubin Negative, Urine Urobilinogen Normal, Ur Leukocyte Esterase 500 H, Urine RBC 0 SEEN, Urine WBC >100 SEEN, Ur Squamous Epith Cells 0-5 SEEN, Ur Renal Epithelial Cell 0-5 SEEN, Urine Bacteria RARE, Urine Mucus 0 SEEN, Ur Random Sodium 37, Urine Creatinine 33.00 01/13/25 05:30: WBC 13.0 H, RBC 2.78 L, Hgb 8.8 L, Hct 27.2 L, MCV 97.8, MCH 31.7, MCHC 32.4 D, RDW Std Deviation 63.1 H, RDW Coeff of Radha 17.9 H, Plt Count 131 L, MPV 9.3, Immature Gran % (Auto) 1.200 H, Neut % (Auto) 71.8 H, Lymph % (Auto) 10.5 L, Perkins % (Auto) 12.4 H, Eos % (Auto) 3.3, Baso % (Auto) 0.8, A bsolute Neuts (auto) 9.4 H, Absolute Lymphs (auto) 1.37, Nucleated RBC % 0.2, Differential Comment SCANNED, Platelet Estimate SLT DEC, Polychromasia 1+, Anisocytosis 1+, Target Cells RARE, Ovalocytes 1+, Crenated Cell 1+, Sodium 141, Potassium 4.0, Chloride 115 H, Carbon Dioxide 16.4 L, Anion Gap 10, BUN 79 H, C reatinine 2.59 H, Estim Creat Clear Calc 27.66 L, Est GFR (MDRD) Non-Af 20 L, B UN/Creatinine Ratio 30.5 H, Glucose 166 H, Calcium 8.1 Micro: Microbiology 01/12/25 09:48 Urine Catheter - South Legionella Antigen - Final 01/12/25 09:48 Urine Catheter - South Streptococcus pneumoniae Antigen (M - Final Radiography Diagnostic Testing: Radiology Impression Echocardiogram 01/12/25 05:55 Interpretation Summary The left ventricular ejection fraction is 60 %. The left atrium is mildly enlarged. Mild (1+) mitral valve insufficiency. Mild (1+) tricuspid valve insufficiency. Left pleural effusion. The study was technically difficult. Ordering Physician: Jame Coello Referring Physician: Jame Coello Performed By: Barb Polanco, RDCS, RVT Renal Ultrasound 01/12/25 07:33 IMPRESSION: 1. Left kidney nonvisualized. 2. The right kidney demonstrate no hydronephrosis or other acute process. Reading Location: [place] [address] Chest X-Ray 01/12/25 11:09 IMPRESSION: Lungs are hypoinflated, also with moderate right hemidiaphragm elevation. No gross acute pneumonic process is seen. A left PICC line is seen, with tip projecting over the SVC. No pneumothorax is noted. No pleural effusion is seen. The cardiomediastinal silhouette is within the normal range for age and technique. Prominent arthritic changes about the shoulders again noted. Right upper quadrant abdominal surgical clips are seen. Reading Location: [place] [address] Physical Exam Narrative POCUS: indication shock. Limited subxifoid view given body habitus. IVC appear small, but unable to determine if collapsable given respiratory variations. PLAX view of the heart shows the LV grossly normal. Const alert and no apparent distress Constitutional Narrative: no respiratory distress. no conversational dyspnea. on room air. obese. blind. afebrile. Resp normal respiratory effort, no retractions, no use of accessory muscles and clear to auscultation bilaterally Cardio regular rate, regular rhythm, S1 normal heart sound and S2 normal heart sound GI GI Narrative: obese, soft, NT ND. Assessment & Plan Assessment/Plan (1) Shock: PLAN: undifferentiated septic (pneumonia v compressive atelectasis) v cardiogenic (given massive edema) or combination thereof Still requiring norepinephrine. Not a candidate for 30 cc/kg of IVF given anasarca/ascites/pleural effusions. on CTX and azithromycin check BCx, strep and legionella antigens, SCx, UA, UCx (not done on admission) consult CCM. (2) JH (acute kidney injury): PLAN: improving baseline creatinine 0.99 (12/09/24), went up to 3.22, down to 2.59 FENa 2.6. Suspect prernal and ATN. Kidney US shows normal right kidney. Nonvisualized left kidney (though seen on CT) Monitor. (3) CHF (congestive heart failure): PLAN: chronic. HFpEF. compensated. echo shows an EF of no diuresis given shock (4) Anemia: PLAN: chronic. Hg down to 7.3. Transfused 1 unit of PRBCs. Now up to 8.8 Pt with post-menopausal bleeding. Pelvic US limited Follow up with Plunger Machine Operator as outpt. PLAN: Plan chronic medical conditions: * obesity class III: complicates care and recovery * dementia: rivastigmine * afib: continue amiodarone. hold metoprolol given shock. VTE prophylaxis: SCDs. Charges/Coding Visit Charges Inpatient E&M: 27547 Subs Hosp L2
--- NOTE | 2025-01-13 07:33 | PCM.PN.INT ---
Assessment & Plan Assessment/Plan (1) Shock: (2) Pneumonia: PLAN: Plan RECOMMENDATIONS: 1. Continue to wean Levophed as tolerated. 2. Continue scheduled midodrine as ordered. 3. Empiric antibiotics, pending culture results. 4. Continue to monitor H&H. Transfuse if hemoglobin drops below 7 g/dL. 5. If recurrent vaginal bleeding occurs, consultation will be placed to [employer]. IMPRESSIONS: 1. Multifactorial shock While underlying sepsis related to pneumonia certainly a possibility, I do also suspect a hypovolemic etiology with recent postmenopausal vaginal bleeding noted by the patient. The patient did ultimately receive fluid resuscitation and was transfused 1 unit of packed red blood cells. Recommend continuing to wean Levophed as tolerated. Echocardiogram revealed intact normal systolic function. Continue empiric antimicrobials, pending culture results. If she were to have recurrent vaginal bleeding, consultation will be placed to [employer]. Scheduled midodrine will be continued. 2. Acute kidney injury Improving. Most likely prerenal in etiology in the setting of #1. Renal ultrasound was unremarkable. Continue to monitor urine output. No current indication for renal replacement therapy. 3. Postmenopausal vaginal bleeding Case was discussed briefly with [employer], who recommended possible pelvic MRI, given suboptimal transvaginal ultrasound. Recommend outpatient follow-up with [employer] after discharge if the patient remains clinically stable. If she were to develop recurrent vaginal bleeding, consultation can be placed while inpatient. 4. History of super morbid obesity/GERD/thrombocytopenia/hypertension/diabetes mellitus Complicates care, management, recovery and prognosis. Continue supportive measures as noted above. TIME: 34 minutes of critical care time, independent of procedures, was spent addressing the patient's multifactorial shock, acute kidney injury, postmenopausal vaginal bleeding, review of all data and collaboration with the care team. Subjective Subjective The patient was seen and examined at the bedside this morning. Events from the last 24 hours have been reviewed. The patient is currently afebrile but remains on Levophed to maintain hemodynamic stability. The patient has no specific complaints this morning. She denies ever having been tested or diagnosed with sleep apnea. She is currently documented to be overall net +5.3 L for the hospitalization. White blood cell count was noted to be 13,000 this morning. Hemoglobin has improved to 8.8 g/dL. Platelet count has improved to 131,000. Creatinine has improved to 2.59. Objective Data Objective Data The patient's most recent lab work, culture data and imaging studies have all been personally reviewed. Blood and urine cultures are pending. Strep and urine Legionella antigens were negative. Vital Signs: Vital Signs Temp Pulse Resp BP Pulse Ox O2 Del Method 98.1 F 64 20 H 114/45 L 97 Room Air 01/13/25 07:00 01/13/25 07:00 01/13/25 07:00 01/13/25 07:00 01/13/25 07:00 01/13/25 07:00 Oxygen Delivery Method Room Air Weight: 300 lb 0.786 oz Body Mass Index (BMI) 56.7 Intake & Output: Intake and Output for Last 24 Hours 01/11/25 01/12/25 01/13/25 23:59 23:59 23:59 Intake Total 1050 / 1050 3993.17 / 4002.55 1270.58 / 1270.58 Output Total 800 / 800 250 / 250 Balance 1050 / 1050 3193.17 / 3202.55 1020.58 / 1020.58 Lab / Micro Data Attestation: I reviewed the patient's lab results. 01/13/25 05:30 01/13/25 05:30 Labs: Laboratory Results - last 24 hr 01/11/25 19:01: Crossmatch See Detail 01/12/25 08:25: Lactic Acid 1.1 01/12/25 09:48: Urine Color Yellow, Urine Clarity Cloudy, Urine pH 6.0, Ur Specific [place] 1.015, Urine Protein 30 H, Urine Glucose (UA) Normal, Urine Ketones Negative, Urine Occult Blood 250 H, Urine Nitrite Negative, Urine Bilirubin Negative, Urine Urobilinogen Normal, Ur Leukocyte Esterase 500 H, Urine RBC 0 SEEN, Urine WBC >100 SEEN, Ur Squamous Epith Cells 0-5 SEEN, Ur Renal Epithelial Cell 0-5 SEEN, Urine Bacteria RARE, Urine Mucus 0 SEEN, Ur Random Sodium 37, Urine Creatinine 33.00 01/13/25 05:30: WBC 13.0 H, RBC 2.78 L, Hgb 8.8 L, Hct 27.2 L, MCV 97.8, MCH 31.7, MCHC 32.4 D, RDW Std Deviation 63.1 H, RDW Coeff of Radha 17.9 H, Plt Count 131 L, MPV 9.3, Immature Gran % (Auto) 1.200 H, Neut % (Auto) 71.8 H, Lymph % (Auto) 10.5 L, [place] % (Auto) 12.4 H, Eos % (Auto) 3.3, Baso % (Auto) 0.8, Absolute Neuts (auto) 9.4 H, Absolute Lymphs (auto) 1.37, Nucleated RBC % 0.2, Differential Comment SCANNED, Platelet Estimate SLT DEC, Polychromasia 1+, Anisocytosis 1+, Target Cells RARE, Ovalocytes 1+, Crenated Cell 1+, Sodium 141, Potassium 4.0, Chloride 115 H, Carbon Dioxide 16.4 L, Anion Gap 10, BUN 79 H, Creatinine 2.59 H, Estim Creat Clear Calc 27.66 L, Est GFR (MDRD) Non-Af 20 L, BUN/Creatinine Ratio 30.5 H, Glucose 166 H, Calcium 8.1 Micro: Microbiology 01/12/25 09:48 Urine Catheter - South Legionella Antigen - Final 01/12/25 09:48 Urine Catheter - South Streptococcus pneumoniae Antigen (M - Final Radiography Diagnostic Testing: Radiology Impression Echocardiogram 01/12/25 05:55 Interpretation Summary The left ventricular ejection fraction is 60 %. The left atrium is mildly enlarged. Mild (1+) mitral valve insufficiency. Mild (1+) tricuspid valve insufficiency. Left pleural effusion. The study was technically difficult. Ordering Physician: Jame Coello Referring Physician: Jame Coello Performed By: Barb Polanco, RDCS, RVT Renal Ultrasound 01/12/25 07:33 IMPRESSION: 1. Left kidney nonvisualized. 2. The right kidney demonstrate no hydronephrosis or other acute process. Reading Location: [place] [address] Chest X-Ray 01/12/25 11:09 IMPRESSION: Lungs are hypoinflated, also with moderate right hemidiaphragm elevation. No gross acute pneumonic process is seen. A left PICC line is seen, with tip projecting over the SVC. No pneumothorax is noted. No pleural effusion is seen. The cardiomediastinal silhouette is within the normal range for age and technique. Prominent arthritic changes about the shoulders again noted. Right upper quadrant abdominal surgical clips are seen. Reading Location: [place] [address] Physical Exam Const alert and no apparent distress Constitutional Narrative: Super morbidly obese. Resting comfortably in bed. General Appearance: cooperative HEENT normocephalic, head/scalp atraumatic and moist oral mucous membranes Eyes PERRL, EOMs intact bilaterally and conjunctivae normal Neck supple General: trachea midline Chest inspection of chest normal Resp normal respiratory effort Auscultation: diminished lung sounds Cardio regular rate, regular rhythm, S1 normal heart sound and S2 normal heart sound GI normal to inspection, nondistended, normoactive bowel sounds Extremity Extremity Narrative: Wrapped lower extremities. General Extremity: Negative for clubbing or edema Neuro oriented x3, CN's II-XII intact bilaterally and no focal motor deficits Psych cooperative and affect normal Charges/Coding Procedures Hospitalists Procedures: 25233 Critical Care 1st Hr
[2025-01-13] MEDS: LINAGLIPTIN 5 MG TABLET PO (08:25)
--- NOTE | 2025-01-13 12:02 | WOUNDNOTE ---
wound photo: under left breast
--- NOTE | 2025-01-13 12:03 | WOUNDNOTE ---
wound photo: right heel
--- NOTE | 2025-01-13 12:05 | WOUNDNOTE ---
wound photo: sacrum
--- NOTE | 2025-01-13 12:06 | WOUNDNOTE ---
wound photo: left buttock/ischium
--- NOTE | 2025-01-13 12:07 | WOUNDNOTE ---
wound photo: right abdomen
[2025-01-13] MEDS: Norepinephrine 8 MG in 0.9% Normal Saline (250mL Bag) 242 ML 28.1 MG CONT INF ×2 (13:05→21:41)
[2025-01-13] MEDS: Senna/Docusate Sodium 1 Tablet 2 TABLET PO (21:10)
[2025-01-13] MEDS: Azithromycin 500 MG in 0.9% Normal Saline (250mL Bag) 250 ML 250 MG IV (21:41)
[2025-01-13] MEDS: TITRATION PARAMETER CHANGE 1 EACH IV (23:08)
[2025-01-14] VITALS (36 sets, daily range): BP systolic 90–119; BP diastolic 33–77; PULSE 58–74; RESP 12–25; TEMP 36.5–37.1; O2SAT 93–100; BMI 58.3
[2025-01-14] MEDS: 0.9% Saline Lock 10 ML Syringe IV (05:11)
[2025-01-14] MEDS: Norepinephrine 8 MG in 0.9% Normal Saline (250mL Bag) 242 ML 28.1 MG CONT INF (06:35)
--- NOTE | 2025-01-14 06:41 | PCM.PN.INT ---
Assessment & Plan Assessment/Plan (1) Shock: (2) Pneumonia: PLAN: Plan RECOMMENDATIONS: 1. Continue to wean Levophed as tolerated. 2. Continue scheduled midodrine as ordered. 3. Empiric antibiotics, pending culture results. 4. Continue to monitor H&H. Transfuse if hemoglobin drops below 7 g/dL. 5. If recurrent vaginal bleeding occurs, consultation will be placed to [employer]. IMPRESSIONS: 1. Multifactorial shock While underlying sepsis related to pneumonia certainly a possibility, I do also suspect a hypovolemic etiology with recent postmenopausal vaginal bleeding noted by the patient. The patient did ultimately receive fluid resuscitation and was transfused 1 unit of packed red blood cells. Recommend continuing to wean Levophed as tolerated. Echocardiogram revealed intact normal systolic function. Continue empiric antimicrobials, pending culture results. If she were to have recurrent vaginal bleeding, consultation will be placed to [employer]. Scheduled midodrine will be continued. 2. Acute kidney injury Improving. Most likely prerenal in etiology in the setting of #1. Renal ultrasound was unremarkable. Continue to monitor urine output. No current indication for renal replacement therapy. 3. Postmenopausal vaginal bleeding Case was discussed briefly with [employer], who recommended possible pelvic MRI, given suboptimal transvaginal ultrasound. Recommend outpatient follow-up with [employer] after discharge if the patient remains clinically stable. If she were to develop recurrent vaginal bleeding, consultation can be placed while inpatient. 4. History of super morbid obesity/GERD/thrombocytopenia/hypertension/diabetes mellitus Complicates care, management, recovery and prognosis. Continue supportive measures as noted above. TIME: 32 minutes of critical care time, independent of procedures, was spent addressing the patient's multifactorial shock, acute kidney injury, postmenopausal vaginal bleeding, review of all data and collaboration with the care team. Subjective Subjective The patient was seen and examined at the bedside this morning. Events from the last 24 hours have been reviewed. The patient remains on Levophed to maintain hemodynamic stability. Oxygenation status is stable on room air. The patient is documented to be overall net +7.4 L for the hospitalization. White blood cell count is mildly elevated at 12,000. Hemoglobin and platelet count are stable. Creatinine has improved to 2.28. Objective Data Objective Data The patient's most recent lab work, culture data and imaging studies have all been personally reviewed. Blood, urine and sputum cultures are pending. Strep and urine Legionella antigens were negative. Vital Signs: Vital Signs Temp Pulse Resp BP Pulse Ox O2 Del Method O2 Flow Rate 98 F 62 18 106/33 L 96 Room Air 2 01/14/25 04:00 01/14/25 06:00 01/14/25 06:00 01/14/25 06:00 01/14/25 06:00 01/14/25 06:00 01/14/25 05:00 Oxygen Flow Rate (L/min) 2 Oxygen Delivery Method Room Air Weight: 308 lb 10.354 oz Body Mass Index (BMI) 58.3 Intake & Output: Intake and Output for Last 24 Hours 01/12/25 01/13/25 01/14/25 23:59 23:59 23:59 Intake Total 3993.17 / 4002.55 4029.44 / 4057.54 213.0 / 213.0 Output Total 800 / 800 800 / 800 250 / 250 Balance 3193.17 / 3202.55 3229.44 / 3257.54 -37.0 / -37.0 Lab / Micro Data Attestation: I reviewed the patient's lab results. 01/14/25 05:15 01/14/25 05:15 Labs: Laboratory Results - last 24 hr 01/11/25 19:01: Crossmatch See Detail Micro: Microbiology 01/12/25 07:53 Blood Culture (Wb) - Anticubital Right Blood Culture - Preliminary No growth in 48 hours. 01/13/25 11:15 Sputum, Expectorated/Coughed Gram Stain - Final 01/12/25 09:48 Urine Catheter - South Legionella Antigen - Final 01/12/25 09:48 Urine Catheter - South Streptococcus pneumoniae Antigen (M - Final Radiography Diagnostic Testing: Radiology Impression Echocardiogram 01/12/25 05:55 Interpretation Summary The left ventricular ejection fraction is 60 %. The left atrium is mildly enlarged. Mild (1+) mitral valve insufficiency. Mild (1+) tricuspid valve insufficiency. Left pleural effusion. The study was technically difficult. Ordering Physician: Jame Coello Referring Physician: Jame Coello Performed By: Barb Polanco, RDCS, RVT Renal Ultrasound 01/12/25 07:33 IMPRESSION: 1. Left kidney nonvisualized. 2. The right kidney demonstrate no hydronephrosis or other acute process. Reading Location: [place] [address] Chest X-Ray 01/12/25 11:09 IMPRESSION: Lungs are hypoinflated, also with moderate right hemidiaphragm elevation. No gross acute pneumonic process is seen. A left PICC line is seen, with tip projecting over the SVC. No pneumothorax is noted. No pleural effusion is seen. The cardiomediastinal silhouette is within the normal range for age and technique. Prominent arthritic changes about the shoulders again noted. Right upper quadrant abdominal surgical clips are seen. Reading Location: [place] [address] Physical Exam Const alert and no apparent distress Constitutional Narrative: Super morbidly obese. Resting comfortably in bed. General Appearance: cooperative HEENT normocephalic, head/scalp atraumatic and moist oral mucous membranes Eyes PERRL, EOMs intact bilaterally and conjunctivae normal Neck supple General: trachea midline Chest inspection of chest normal Resp normal respiratory effort Auscultation: diminished lung sounds Cardio regular rate, regular rhythm, S1 normal heart sound and S2 normal heart sound GI normal to inspection, nondistended, normoactive bowel sounds Extremity Extremity Narrative: Wrapped lower extremities. General Extremity: Negative for clubbing or edema Neuro oriented x3, CN's II-XII intact bilaterally and no focal motor deficits Psych cooperative and affect normal Charges/Coding Procedures Hospitalists Procedures: 43063 Critical Care 1st Hr
--- NOTE | 2025-01-14 06:56 | PCM.PN.HOSP ---
Reason for Visit Chief Complaint: Abnormal labs, shortness of breath Subjective Subjective Feeling fine. Still on pressors. Objective Data Objective Data Vital Signs: Vital Signs Temp Pulse Resp BP Pulse Ox O2 Del Method O2 Flow Rate 36.6 C 62 18 106/33 L 96 Room Air 2 01/14/25 04:00 01/14/25 06:00 01/14/25 06:00 01/14/25 06:00 01/14/25 06:00 01/14/25 06:00 01/14/25 05:00 Oxygen Flow Rate (L/min) 2 Oxygen Delivery Method Room Air Weight: 140 kg Body Mass Index (BMI) 58.3 Intake & Output: Intake and Output for Last 24 Hours 01/12/25 01/13/25 01/14/25 23:59 23:59 23:59 Intake Total 3993.17 / 4002.55 4029.44 / 4057.54 213.0 / 213.0 Output Total 800 / 800 800 / 800 250 / 250 Balance 3193.17 / 3202.55 3229.44 / 3257.54 -37.0 / -37.0 Lab / Micro Data 01/14/25 05:15 01/14/25 05:15 Labs: Laboratory Results - last 24 hr 01/11/25 19:01: Crossmatch See Detail Micro: Microbiology 01/12/25 07:53 Blood Culture (Wb) - Anticubital Right Blood Culture - Preliminary No growth in 48 hours. 01/13/25 11:15 Sputum, Expectorated/Coughed Gram Stain - Final 01/12/25 09:48 Urine Catheter - South Legionella Antigen - Final 01/12/25 09:48 Urine Catheter - South Streptococcus pneumoniae Antigen (M - Final Physical Exam Const alert and no apparent distress Resp normal respiratory effort, no retractions, no use of accessory muscles and clear to auscultation bilaterally Cardio regular rate, regular rhythm, S1 normal heart sound and S2 normal heart sound GI normal to inspection, nondistended, normoactive bowel sounds, soft to palpation, non-tender and non-distended Extremity normal to inspection and full ROM Neuro Sensorium / Orientation: awake and alert Assessment & Plan Assessment/Plan (1) Shock: PLAN: undifferentiated septic (pneumonia v compressive atelectasis) v cardiogenic (given massive edema) or combination thereof Still requiring norepinephrine, though being titrated down. Not a candidate for 30 cc/kg of IVF given anasarca/ascites/pleural effusions on admission. on CTX and azithromycin strep and legionella antigens negative, SCx, BCx pending. UA concerning for UTI, UCx pending CCM following (2) JH (acute kidney injury): PLAN: improving baseline creatinine 0.99 (12/09/24), went up to 3.22, down to 2.28 FENa 2.6. Suspect prerenal and ATN. Kidney US shows normal right kidney. Nonvisualized left kidney (though seen on CT) Monitor. (3) CHF (congestive heart failure): PLAN: chronic. HFpEF. compensated. echo shows an EF of no diuresis given shock (4) Anemia: PLAN: chronic. Hg down to 7.3. Transfused 1 unit of PRBCs. Now up to 8.8 Pt with post-menopausal bleeding. Pelvic US limited. Follow up with [employer] as outpt. PLAN: Plan chronic medical conditions: obesity class III: complicates care and recovery dementia: rivastigmine afib: continue amiodarone. hold metoprolol given shock. VTE prophylaxis: SCDs. Charges/Coding Visit Charges Inpatient E&M: 68458 Subs Hosp L2
[2025-01-14 07:23] LABS: Hematocrit 25.8 % (37-47); Hemoglobin 8.1 g/dL (12.0-15.0); Immature Granulocytes Count 0.100 X10^3/uL (0.0-0.0); Mean Corp Hgb Conc 31.4 g/dL (32-36); Mean Corpuscular Volume 99.6 fL (81-99); Mean Platelet Vol. 9.9 fl (6.2-12.0); NRBC Flagged by Analyzer 0.2 % (0-5); POSITIVE DIFFERENTIAL YES; Platelet Count 101 K/mm3 (150-450); RBC Distribution Width CV 17.8 % (11.6-14.6); RBC Distribution Width SD 64.8 fl (35.1-43.9); Red Blood Count 2.59 M/mm3 (4.2-5.4); White Blood Count 12.1 K/mm3 (4.4-11.0)
[2025-01-14] MEDS: Albuterol 2.5 MG/3 ML VIAL.NEB. INHALATION ×3 (07:24→19:17)
[2025-01-14 07:30] LABS: Anion Gap 9 (5-15); BUN 72 mg/dL (4-19); BUN/Creat Ratio 31.5 RATIO (10-20); Calcium,Total 8.0 mg/dL (7.6-11.0); Carbon Dioxide 16.6 mmol/L (21.0-32.0); Chloride 116 mmol/L (98-108); Estimated Creatinine Clearance 32.01 ml/min (50-250); Glucose 168 mg/dL (70-99); Potassium 3.7 mmol/L (3.3-5.1)
[2025-01-14 07:31] LABS: Differential Indicated SCAN CRITERIA MET
[2025-01-14] MEDS: LINAGLIPTIN 5 MG TABLET PO (08:54)
[2025-01-14] MEDS: 0.9% Normal Saline (1000mL) 1,000 ML 100 ML IV ×2 (09:16→18:51)
--- NOTE | 2025-01-14 09:41 | CASEMGMT ---
Discharge Planning Updates sent to [facility] with note that pt could possibly be ready over the weekend. Rosette Leggett DC Planning Asst.
[2025-01-14] MEDS: Norepinephrine 8 MG in 0.9% Normal Saline (250mL Bag) 242 ML 20.6 MG CONT INF (17:27)
[2025-01-14] MEDS: Senna/Docusate Sodium 1 Tablet 2 TABLET PO (21:32)
[2025-01-14] MEDS: Azithromycin 500 MG in 0.9% Normal Saline (250mL Bag) 250 ML 250 MG IV (22:16)
[2025-01-15] VITALS (43 sets, daily range): BP systolic 87–122; BP diastolic 29–108; PULSE 70–82; RESP 15–30; TEMP 36.6–36.8; O2SAT 93–100; BMI 59.8
[2025-01-15] MEDS: 0.9% Saline Lock 10 ML Syringe IV (05:32)
[2025-01-15] MEDS: 0.9% Normal Saline (1000mL) 1,000 ML 100 ML IV (05:32)
[2025-01-15 05:48] LABS: Hematocrit 25.7 % (37-47); Hemoglobin 8.1 g/dL (12.0-15.0); Immature Granulocytes Count 0.110 X10^3/uL (0.0-0.0); Mean Corp Hgb Conc 31.5 g/dL (32-36); Mean Corpuscular Volume 100.4 fL (81-99); Mean Platelet Vol. 9.5 fl (6.2-12.0); NRBC Flagged by Analyzer 0.3 % (0-5); POSITIVE COUNT YES; POSITIVE DIFFERENTIAL YES; Platelet Count 92 K/mm3 (150-450); RBC Distribution Width CV 17.4 % (11.6-14.6); RBC Distribution Width SD 63.8 fl (35.1-43.9); Red Blood Count 2.56 M/mm3 (4.2-5.4); White Blood Count 12.7 K/mm3 (4.4-11.0)
[2025-01-15 06:26] LABS: Anion Gap 8 (5-15); BUN 74 mg/dL (4-19); BUN/Creat Ratio 33.1 RATIO (10-20); Calcium,Total 8.7 mg/dL (7.6-11.0); Carbon Dioxide 17.7 mmol/L (21.0-32.0); Chloride 114 mmol/L (98-108); Estimated Creatinine Clearance 33.42 ml/min (50-250); Glucose 168 mg/dL (70-99); Potassium 4.2 mmol/L (3.3-5.1)
[2025-01-15 06:49] LABS: Differential Indicated SCAN CRITERIA MET
[2025-01-15] MEDS: Albuterol 2.5 MG/3 ML VIAL.NEB. INHALATION ×3 (07:00→17:17)
[2025-01-15 07:20] LABS: Differential Comment SCANNED
--- NOTE | 2025-01-15 07:33 | PN.HOSP_ITS ---
Reason for Visit Chief Complaint: Abnormal labs, shortness of breath Subjective Subjective Feeling well. Objective Data Objective Data Vital Signs: Vital Signs Temp Pulse Resp BP Pulse Ox O2 Del Method O2 Flow Rate 36.7 C 77 20 H 91/45 L 95 Nasal Cannula 2 01/15/25 04:00 01/15/25 07:00 01/15/25 07:00 01/15/25 07:00 01/15/25 07:00 01/15/25 07:00 01/15/25 07:00 Oxygen Flow Rate (L/min) 2 Oxygen Delivery Method Nasal Cannula Weight: 143.5 kg Body Mass Index (BMI) 59.8 Intake & Output: Intake and Output for Last 24 Hours 01/13/25 01/14/25 01/15/25 23:59 23:59 23:59 Intake Total 4029.44 / 4057.54 2835.66 / 2856.26 1118.01 / 1118.01 Output Total 800 / 800 650 / 650 350 / 350 Balance 3229.44 / 3257.54 2185.66 / 2206.26 768.01 / 768.01 Lab / Micro Data 01/15/25 05:30 01/15/25 05:30 Labs: Laboratory Results - last 24 hr 01/14/25 05:15: Platelet Estimate SLT 01/15/25 05:30: WBC 12.7 H, RBC 2.56 L, Hgb 8.1 L, Hct 25.7 L, MCV 100.4 H, MCH 31.6, MCHC 31.5 L, RDW Std Deviation 63.8 H, RDW Coeff of Radha 17.4 H, Plt Count 92 L, MPV 9.5, Immature Gran % (Auto) 0.900, Neut % (Auto) 70.2 H, Lymph % (Auto) 12.3 L, [place] % (Auto) 13.0 H, Eos % (Auto) 3.1, Baso % (Auto) 0.5, A bsolute Neuts (auto) 9.0 H, Absolute Lymphs (auto) 1.57, Nucleated RBC % 0.3, Differential Comment SCANNED, Sodium 140, Potassium 4.2, Chloride 114 H, Carbon Dioxide 17.7 L, Anion Gap 8, BUN 74 H, Creatinine 2.22 H, Estim Creat Clear Calc 33.42 L, Est GFR (MDRD) Non-Af 24 L, BUN/Creatinine Ratio 33.1 H, Glucose 168 H, Calcium 8.7 Micro: Microbiology 01/12/25 12:15 Blood Culture (Wb) - Right Hand Blood Culture - Preliminary No growth in 48 hours. 01/12/25 09:48 Urine Catheter - South Urine Culture - Preliminary GNR lactose director of assessing GNR Poss Pseudomonas sp 01/12/25 09:48 Urine Catheter - South Legionella Antigen - Final 01/12/25 09:48 Urine Catheter - South Streptococcus pneumoniae Antigen (M - Final 01/12/25 07:53 Blood Culture (Wb) - Anticubital Right Blood Culture - Preliminary No growth in 48 hours. 01/13/25 11:15 Sputum, Expectorated/Coughed Gram Stain - Final Physical Exam Const alert and no apparent distress Constitutional Narrative: No respiratory distress. No conversational dyspnea. Blind. Keeps eyes closed during encounter. HEENT head/scalp atraumatic and moist oral mucous membranes Resp normal respiratory effort, no retractions, no use of accessory muscles and clear to auscultation bilaterally Cardio regular rate, regular rhythm, S1 normal heart sound and S2 normal heart sound GI normal to inspection, nondistended, normoactive bowel sounds, soft to palpation, non-tender and non-distended Extremity General Extremity: edema bilateral lower extremity Details: moderate Neuro Sensorium / Orientation: awake and alert Assessment & Plan Assessment/Plan (1) Shock: PLAN: undifferentiated septic (pneumonia v compressive atelectasis) v cardiogenic (given massive edema) or combination thereof Still requiring norepinephrine, though being titrated down. Not a candidate for 30 cc/kg of IVF given anasarca/ascites/pleural effusions on admission. on cefepime and azithromycin strep and legionella antigens negative, SCx, BCx pending. UA concerning for UTI, UCx pending CCM following Urine culture positive for Enterobacter and possible Pseudomonas Started on IV hydrocortisone (2) JH (acute kidney injury): PLAN: improving baseline creatinine 0.99 (12/09/24), went up to 3.22, down to 2.22 FENa 2.6. Suspect prerenal and ATN. Kidney US shows normal right kidney. Nonvisualized left kidney (though seen on CT) Monitor. (3) CHF (congestive heart failure): PLAN: chronic. HFpEF. compensated. echo shows an EF of no diuresis given shock (4) Anemia: PLAN: chronic. Hg down to 7.3. Transfused 1 unit of PRBCs. Now up to 8.1 Pt with post-menopausal bleeding. Pelvic US limited. Follow up with Cardiology Coordinator as outpt. PLAN: Plan chronic medical conditions: * obesity class III: complicates care and recovery * dementia: rivastigmine * afib: continue amiodarone. hold metoprolol given shock. VTE prophylaxis: SCDs. Charges/Coding Visit Charges Inpatient E&M: 54472 Subs Hosp L2
[2025-01-15] MEDS: Norepinephrine 8 MG in 0.9% Normal Saline (250mL Bag) 242 ML 13.1 MG CONT INF (08:53)
--- NOTE | 2025-01-15 08:56 | PN.CC_ITS ---
Objective Data Objective Data Vital Signs: Vital Signs Last response 3 Temperature 36.6 C 01/15/25 08:00 Temperature Source Core 01/15/25 08:00 Pulse Rate 78 01/15/25 08:00 Pulse Strength Normal (2+) 01/12/25 20:22 Respiratory Rate 23 H 01/15/25 08:00 Respiratory Effort Normal, Non-Labored 01/15/25 04:00 Respiratory Depth Normal 01/15/25 04:00 Respiratory Pattern Normal 01/15/25 07:00 Blood Pressure 100/34 L 01/15/25 08:00 Blood Pressure Mean 56 01/15/25 08:00 Blood Pressure Source Monitor 01/15/25 08:00 Blood Pressure Position Semi-Fowlers 01/15/25 08:00 Blood Pressure Location Right Forearm 01/15/25 08:00 Pulse Ox 94 01/15/25 08:00 Oxygen Delivery Method Room Air 01/15/25 08:00 Oxygen Flow Rate (L/min) 2 01/15/25 07:00 I&O: I&O Last 24 Hours 3 01/14/25 01/14/25 01/15/25 11:59 23:59 11:59 Intake Total 1347.01 / 2856.26 1488.65 / 2856.26 1135.67 / 1135.67 Output Total 250 / 650 400 / 650 350 / 350 Balance 1097.01 / 2206.26 1088.65 / 2206.26 785.67 / 785.67 I&O: Total Stay 3 01/11/25 18:44 thru 01/15/25 08:21 Intake Total 89822.94 Output Total 2600 Balance 53119.94 Current Meds Ordered / Administered: Current meds ordered / Administered 3 Generic Name Dose Route Start Last Admin Trade Name Freq PRN Reason Stop Dose Admin Acetaminophen 1,000 mg 01/12/25 00:29 Acetaminophen 500 Mg Tablet PO Q8H PRN PRN Pain Score 1-10 Albuterol Sulfate 2.5 mg 01/13/25 11:00 01/15/25 07:00 Albuterol 2.5 Mg/3 Ml Vial.Neb. INHALATION 2.5 mg Q6HWA.RT MACKENZIE Administration Amiodarone HCl 200 mg 01/12/25 10:00 01/14/25 08:53 Amiodarone 200 Mg Tablet PO 200 mg DAILY MACKENZIE Administration Calamine/Phenol 1 applic 01/12/25 22:00 01/15/25 05:32 Menthol/Lanolin/Calamine/Znox 113 Gm Tube TOPICAL 1 applic TID MACKENZIE Administration Protocol Ferrous Sulfate 325 mg 01/12/25 12:00 01/14/25 11:34 Ferrous Sulfate 325 Mg Tablet PO 325 mg DAILY@1200 MACKENZIE Administration Sodium Chloride 1,000 mls @ 100 mls/hr 01/12/25 00:29 01/15/25 05:32 IV 100 mls/hr .Q10H MACKENZIE Administration Ceftriaxone Sodium 1 gm in 50 mls @ 100 mls/hr 01/12/25 22:00 01/14/25 22:02 Rocephin IV Infused Q24H MACKENZIE Infusion Azithromycin 500 mg/ Sodium 250 mls @ 250 mls/hr 01/12/25 22:00 01/14/25 23:16 Chloride IV Infused Q24H MACKENZIE Infusion Sodium Chloride 250 mls @ 15 mls/hr 01/12/25 00:38 IV .[id number] PRN Saline Flush Sodium Chloride 250 mls @ 15 mls/hr 01/12/25 00:38 IV .[id number] PRN Additional IVPB Infusion Norepinephrine Bitartrate 8 mg 250 mls @ 9.375 mls/hr 01/12/25 06:55 01/15/25 08:53 / Sodium Chloride CONT INF 7 mcg/min .[id number] MACKENZIE 13.1 mls/hr Administration Protocol 5 MCG/MIN Linagliptin 5 mg 01/12/25 10:00 01/14/25 08:54 Linagliptin 5 Mg Tablet PO 5 mg DAILY MACKENZIE Administration Magnesium Hydroxide 30 ml 01/12/25 00:29 Magnesium Hydroxide 30 Ml Udc PO DAILY PRN constipation Midodrine 10 mg 01/12/25 12:00 01/15/25 08:48 Midodrine Hcl 5 Mg Tablet PO 10 mg TIDCM MACKENZIE Administration Mirtazapine 15 mg 01/12/25 22:00 01/14/25 21:32 Mirtazapine 15 Mg Tablet PO 15 mg QHS MACKENZIE Administration Nystatin 1 applic 01/12/25 22:00 01/15/25 05:32 Nystatin Powder 15gm Bottle TOPICAL 1 applic TID MACKENZIE Administration Protocol Ondansetron HCl 4 mg 01/14/25 22:00 01/14/25 22:15 Ondansetron 4 Mg/2 Ml Vial IV 4 mg Q8H PRN PRN Administration NAUSEA/VOMITING Pantoprazole Sodium 40 mg 01/12/25 16:25 01/14/25 08:54 Pantoprazole Sodium 40 Mg Tablet PO 40 mg DAILY MACKENZIE Administration Polyethylene Glycol 17 gm 01/12/25 10:00 01/14/25 08:56 Polyethylene Glycol 3350 17 Gm Packet PO Not Given DAILY MACKENZIE Senna/Docusate Sodium 2 tablet 01/12/25 22:00 01/14/25 21:32 Senna/Docusate Sodium 1 Tablet PO 2 tablet QHS MACKENZIE Administration Sodium Chloride 10 - 40 ml 01/12/25 00:38 01/15/25 05:32 0.9% Saline Lock 10 Ml Syringe IV 20 ml UD PRN Administration SALINE FLUSH Lab / Micro Data 01/15/25 05:30 01/15/25 05:30 Labs: Laboratory Results - last 24 hr 01/15/25 05:30: WBC 12.7 H, RBC 2.56 L, Hgb 8.1 L, Hct 25.7 L, MCV 100.4 H, MCH 31.6, MCHC 31.5 L, RDW Std Deviation 63.8 H, RDW Coeff of Radha 17.4 H, Plt Count 92 L, MPV 9.5, Immature Gran % (Auto) 0.900, Neut % (Auto) 70.2 H, Lymph % (Auto) 12.3 L, [place] % (Auto) 13.0 H, Eos % (Auto) 3.1, Baso % (Auto) 0.5, A bsolute Neuts (auto) 9.0 H, Absolute Lymphs (auto) 1.57, Nucleated RBC % 0.3, Differential Comment SCANNED, Sodium 140, Potassium 4.2, Chloride 114 H, Carbon Dioxide 17.7 L, Anion Gap 8, BUN 74 H, Creatinine 2.22 H, Estim Creat Clear Calc 33.42 L, Est GFR (MDRD) Non-Af 24 L, BUN/Creatinine Ratio 33.1 H, Glucose 168 H, Calcium 8.7 Micro: Microbiology 01/12/25 09:48 Urine Catheter - South Urine Culture - Preliminary Enterobacter cloacae complex GNR Poss Pseudomonas sp 01/12/25 09:48 Urine Catheter - South Legionella Antigen - Final 01/12/25 09:48 Urine Catheter - South Streptococcus pneumoniae Antigen (M - Final 01/12/25 12:15 Blood Culture (Wb) - Right Hand Blood Culture - Preliminary No growth in 48 hours. 01/12/25 07:53 Blood Culture (Wb) - Anticubital Right Blood Culture - Preliminary No growth in 48 hours. Assessment and Plan . Assessment and plan: Subjective: No acute events o/n. She feels about the same as yesterday, still with mild dyspnea and intermittent body aches. Feels abdominal fullness. Remains on pressors Physical Exam: Gen - NAD, morbidly obese HEENT - MMM. Sclera anicteric Resp - Diminished in bases. Breathing nonlabored CV - RRR. No m/g/r Abd - Soft, NT, ND Ext - No c/c. +LE edema Skin - No rashes? Neuro - Chronic blindness. Mild drowsiness but easily arousable and answers questions appropriately I have reviewed the pertinent vital sign, laboratory, and imaging data. ASSESSMENT: # Shock ? suspected multifactorial from sepsis/UTI, vaginal bleeding # UTI ? enterobacter and possible PsA # Possible PNA vs atelectasis # JH # Postmenopausal vaginal bleeding # Suspected NAGMA # Chronic liver disease ? noted on CT. ?MAFLD # Proteinuria # Severe hypoalbuminemia # DM # HTN # Thrombocytopenia # Chronic blindness # Super morbid obesity PLAN: -On levophed down to 7 mcg/min, wean to keep MAP > 65. Repeat lactate -Stop IVF, significant net positive fluid balance now. Start scheduled albumin -Check cortisol, TSH. Start IV hydrocortisone -Cont midodine -TTE w/ LVEF 60% -Repeat CXR. Monitor respiratory status. May need gentle diuresis if worsening -Broaden rocephin to cefepime, cont azithro. f/u final Cx speciation -Monitor BMP for worsening acidosis. Check VBG. Significant hyperchloremia, stopping NS as above -No further vaginal bleeding thus far. Per prior discussion with gynecology, recommended OP f/u for this -Follow LFTs, check ammonia FEN/GI: PO diet Proph DVT/GI: SCDs, protonix Critical Care Time: 50 mins The entirety of this encounter was done via telemedicine using both audio and video. Consent was obtained.
--- NOTE | 2025-01-15 09:23 | CASEMGMT ---
Per ICU rounds, the hospitalist reports that the pt will medically require stay through the weekend. DPA notified. CM to follow up on Saturday for transfer back to the SNF once medically ready.
--- NOTE | 2025-01-15 10:15 | RAD_ITS ---
PROCEDURE: CHEST 1 VIEW (PORTABLE) 01/15/2025 REASON FOR EXAM: DYSPNEA, POSSIBLE CHF TECHNIQUE: Frontal view of the chest. COMPARISON: AP portable chest of 01/12/2025. RAD/Chest 1 View (Portable) IMPRESSION: Right upper quadrant abdominal surgical clips are again seen. Lungs are again significantly hypoinflated, but no gross acute pneumonic proces s is seen. No pleural effusion or pneumothorax is evident. The cardiomediastinal silhouette is stable, without evidence of cardiomegaly. A PICC line is again seen, position unchanged. No pleural effusion or pneumothorax is noted. No interval osseous change is seen. Reading Location: [place] [address]
[2025-01-15 11:03] LABS: SITE Not entered; VBG BASE EXCESS -4 mmol/L (-1.0-3.5); VBG PO2 36 mmHg (25-40); VBG SO2 65 % (50-70); VBG TCO2 23 mmol/L (23-33)
[2025-01-15] MEDS: Cefepime HCl 1 GM in 0.9% Normal Saline (50mL MB+) 50 ML IV (11:26)
[2025-01-15] MEDS: LINAGLIPTIN 5 MG TABLET PO (11:27)
[2025-01-15 11:28] LABS: Ammonia 41.9 umol/L (11-51)
[2025-01-15 11:37] LABS: CORTISOL AM 15.50 ug/dL (6.02-18.40)
[2025-01-15 11:47] LABS: AST(SGOT) 92 U/L (<=31); Alanine Aminotransfer ALT/SGPT 42 U/L (<=34); Albumin, Serum 1.7 g/dL (3.4-4.8); Alkaline Phosphatase 175 U/L (35-104); Bilirubin, Direct 0.85 mg/dL (0.00-0.30); Globulin 4.4 g/dL (2.2-4.2)
[2025-01-15] MEDS: Albumin Human 25% (100 mL) 25 GM/100 ML BAG IV ×3 (12:33→21:24)
[2025-01-15] MEDS: Senna/Docusate Sodium 1 Tablet 2 TABLET PO (21:28)
[2025-01-15] MEDS: Azithromycin 500 MG in 0.9% Normal Saline (250mL Bag) 250 ML 250 MG IV (23:38)
[2025-01-16] VITALS (49 sets, daily range): BP systolic 62–126; BP diastolic 29–107; PULSE 58–72; RESP 12–24; TEMP 36.5–36.8; O2SAT 88–97; BMI 59.3
[2025-01-16] MEDS: Albumin Human 25% (100 mL) 25 GM/100 ML BAG IV ×2 (03:58→15:44)
[2025-01-16] MEDS: 0.9% Saline Lock 10 ML Syringe IV ×4 (05:24→21:29)
[2025-01-16 05:29] LABS: Hematocrit 20.9 % (37-47); Hemoglobin 6.3 g/dL (12.0-15.0); Immature Granulocytes Count 0.070 X10^3/uL (0.0-0.0); Mean Corp Hgb Conc 30.1 g/dL (32-36); Mean Corpuscular Volume 103.0 fL (81-99); Mean Platelet Vol. 9.7 fl (6.2-12.0); NRBC Flagged by Analyzer 0.3 % (0-5); POSITIVE COUNT YES; POSITIVE DIFFERENTIAL YES; POSITIVE MORPHOLOGY YES; Platelet Count 62 K/mm3 (150-450); RBC Distribution Width CV 17.3 % (11.6-14.6); RBC Distribution Width SD 65.3 fl (35.1-43.9); Red Blood Count 2.03 M/mm3 (4.2-5.4); White Blood Count 6.9 K/mm3 (4.4-11.0)
[2025-01-16 05:48] LABS: Anion Gap 10 (5-15); BUN 74 mg/dL (4-19); BUN/Creat Ratio 32.5 RATIO (10-20); Calcium,Total 9.6 mg/dL (7.6-11.0); Carbon Dioxide 17.7 mmol/L (21.0-32.0); Chloride 114 mmol/L (98-108); Estimated Creatinine Clearance 32.21 ml/min (50-250); Glucose 171 mg/dL (70-99); Potassium 4.5 mmol/L (3.3-5.1)
[2025-01-16 05:56] LABS: Differential Indicated SCAN CRITERIA MET
[2025-01-16 06:40] LABS: Differential Comment SCANNED
[2025-01-16] MEDS: Albuterol 2.5 MG/3 ML VIAL.NEB. INHALATION ×3 (07:29→19:30)
--- NOTE | 2025-01-16 08:26 | PN.CC_ITS ---
Objective Data Objective Data Vital Signs: Vital Signs Last response 3 Temperature 36.6 C 01/16/25 04:00 Temperature Source Core 01/16/25 04:00 Pulse Rate 65 01/16/25 07:29 Pulse Strength Normal (2+) 01/15/25 22:00 Respiratory Rate 18 01/16/25 07:29 Respiratory Effort Normal, Non-Labored 01/16/25 04:00 Respiratory Depth Normal 01/16/25 04:00 Respiratory Pattern Normal 01/16/25 07:29 Blood Pressure 110/49 L 01/16/25 06:00 Blood Pressure Mean 69 01/16/25 06:00 Blood Pressure Source Monitor 01/16/25 02:00 Blood Pressure Position Semi-Fowlers 01/16/25 06:00 Blood Pressure Location Right Forearm 01/16/25 06:00 Pulse Ox 95 01/16/25 07:29 Oxygen Delivery Method Nasal Cannula 01/16/25 07:29 Oxygen Flow Rate (L/min) 2 01/16/25 07:29 Fraction of Inspired Oxygen (FIO2) 60 01/15/25 15:00 I&O: I&O Last 24 Hours 3 01/15/25 01/15/25 01/16/25 11:59 23:59 11:59 Intake Total 1616.73 / 2069.16 446.83 / 2069.16 389.2 / 389.2 Output Total 350 / 825 300 / 825 275 / 275 Balance 1266.73 / 1244.16 146.83 / 1244.16 114.2 / 114.2 I&O: Total Stay 3 01/11/25 18:44 thru 01/16/25 06:17 Intake Total 75272.03 Output Total 3175 Balance 78875.03 Current Meds Ordered / Administered: Current meds ordered / Administered 3 Generic Name Dose Route Start Last Admin Trade Name Freq PRN Reason Stop Dose Admin Acetaminophen 1,000 mg 01/12/25 00:29 Acetaminophen 500 Mg Tablet PO Q8H PRN PRN Pain Score 1-10 Albuterol Sulfate 2.5 mg 01/13/25 11:00 01/16/25 07:29 Albuterol 2.5 Mg/3 Ml Vial.Neb. INHALATION 2.5 mg Q6HWA.RT MACKENZIE Administration Amiodarone HCl 200 mg 01/12/25 10:00 01/15/25 11:27 Amiodarone 200 Mg Tablet PO 200 mg DAILY MACKENZIE Administration Calamine/Phenol 1 applic 01/12/25 22:00 01/16/25 05:16 Menthol/Lanolin/Calamine/Znox 113 Gm Tube TOPICAL 1 applic TID MACKENZIE Administration Protocol Ferrous Sulfate 325 mg 01/12/25 12:00 01/15/25 11:27 Ferrous Sulfate 325 Mg Tablet PO 325 mg DAILY@1200 MACKENZIE Administration Hydrocortisone Sodium Succinate 100 mg 01/15/25 10:00 01/16/25 05:24 Hydrocortisone Sod Succinate 100 Mg/2 Ml Vial IV 100 mg Q8 MACKENZIE Administration Azithromycin 500 mg/ Sodium 250 mls @ 250 mls/hr 01/12/25 22:00 01/16/25 00:51 Chloride IV Infused Q24H MACKENZIE Infusion Sodium Chloride 250 mls @ 15 mls/hr 01/12/25 00:38 IV .[id number] PRN Saline Flush Sodium Chloride 250 mls @ 15 mls/hr 01/12/25 00:38 IV .[id number] PRN Additional IVPB Infusion Norepinephrine Bitartrate 8 mg 250 mls @ 9.375 mls/hr 01/12/25 06:55 01/16/25 06:00 / Sodium Chloride CONT INF 3 mcg/min .[id number] MACKENZIE 5.6 mls/hr Titration Protocol 5 MCG/MIN Cefepime HCl 1 gm/ Sodium 50 mls @ 100 mls/hr 01/15/25 10:00 01/15/25 12:31 Chloride IV Infused Q24 MACKENZIE Infusion Albumin Human 25 gm in 100 mls @ 60 mls/hr 01/15/25 10:00 01/16/25 06:17 IV 01/18/25 10:01 Infused Q6H MACKENZIE Infusion Linagliptin 5 mg 01/12/25 10:00 01/15/25 11:27 Linagliptin 5 Mg Tablet PO 5 mg DAILY MACKENZIE Administration Magnesium Hydroxide 30 ml 01/12/25 00:29 Magnesium Hydroxide 30 Ml Udc PO DAILY PRN constipation Midodrine 10 mg 01/12/25 12:00 01/15/25 17:23 Midodrine Hcl 5 Mg Tablet PO 10 mg TIDCM MACKENZIE Administration Mirtazapine 15 mg 01/12/25 22:00 01/15/25 21:28 Mirtazapine 15 Mg Tablet PO 15 mg QHS MACKENZIE Administration Nystatin 1 applic 01/12/25 22:00 01/16/25 05:16 Nystatin Powder 15gm Bottle TOPICAL 1 applic TID MACKENZIE Administration Protocol Ondansetron HCl 4 mg 01/14/25 22:00 01/14/25 22:15 Ondansetron 4 Mg/2 Ml Vial IV 4 mg Q8H PRN PRN Administration NAUSEA/VOMITING Pantoprazole Sodium 40 mg 01/12/25 16:25 01/15/25 11:26 Pantoprazole Sodium 40 Mg Tablet PO 40 mg DAILY MACKENZIE Administration Polyethylene Glycol 17 gm 01/12/25 10:00 01/15/25 11:28 Polyethylene Glycol 3350 17 Gm Packet PO Not Given DAILY MACKENZIE Senna/Docusate Sodium 2 tablet 01/12/25 22:00 01/15/25 21:28 Senna/Docusate Sodium 1 Tablet PO 2 tablet QHS MACKENZIE Administration Sodium Chloride 10 - 40 ml 01/12/25 00:38 01/16/25 05:24 0.9% Saline Lock 10 Ml Syringe IV 20 ml UD PRN Administration SALINE FLUSH Lab / Micro Data 01/16/25 02:13 01/16/25 02:13 Labs: Laboratory Results - last 24 hr 01/15/25 10:20: Lactic Acid 1.2, Total Bilirubin 1.22, Direct Bilirubin 0.85 H, AST 92 H, ALT 42 H, Alkaline Phosphatase 175 H, Ammonia 41.9, Total Protein 6.0, Albumin 1.7 L, Globulin 4.4 H, TSH 0.124 L, Cortisol AM Sample 15.50 01/16/25 02:13: WBC 6.9, RBC 2.03 L, Hgb 6.3 L, Hct 20.9 L, MCV 103.0 H, MCH 31.0, MCHC 30.1 L, RDW Std Deviation 65.3 H, RDW Coeff of Radha 17.3 H, Plt Count 62 L, MPV 9.7, Immature Gran % (Auto) 1.000 H, Neut % (Auto) 84.8 H, Lymph % (Auto) 7.9 L, [place] % (Auto) 6.2, Eos % (Auto) 0.0, Baso % (Auto) 0.1, Absolute Neuts (auto) 5.9, Absolute Lymphs (auto) 0.55 L, Nucleated RBC % 0.3, Differential Comment SCANNED, Platelet Estimate SLT DEC, Sodium 142, Potassium 4.5, Chloride 114 H, Carbon Dioxide 17.7 L, Anion Gap 10, BUN 74 H, Creatinine 2.29 H, Estim Creat Clear Calc 32.21 L, Est GFR (MDRD) Non-Af 23 L, B UN/Creatinine Ratio 32.5 H, Glucose 171 H, Calcium 9.6, Free T4 1.90 H Micro: Microbiology 01/13/25 11:15 Sputum, Expectorated/Coughed Gram Stain - Final 01/13/25 11:15 Sputum, Expectorated/Coughed Respiratory Culture - Preliminary GNR Poss Pseudomonas sp 01/12/25 09:48 Urine Catheter - South Urine Culture - Preliminary Enterobacter cloacae complex GNR Poss Pseudomonas sp 01/12/25 09:48 Urine Catheter - South Legionella Antigen - Final 01/12/25 09:48 Urine Catheter - South Streptococcus pneumoniae Antigen (M - Final ABG Data ABG results: ABG 01/15/25 10:59 Specimen Type SAIGE Sample Site Not entered VBG pH 7.34 VBG pO2 36 VBG HCO3 22 VBG Total CO2 23 VBG O2 Sat (Calc) 65 VBG Base Excess -4 L POC Mix VBG pCO2 Pt Tmp 40.3 L O2 Delivery Device Not entered Imaging Radiology Impression Chest X-Ray 01/15/25 10:15 IMPRESSION: Right upper quadrant abdominal surgical clips are again seen. Lungs are again significantly hypoinflated, but no gross acute pneumonic process is seen. No pleural effusion or pneumothorax is evident. The cardiomediastinal silhouette is stable, without evidence of cardiomegaly. A PICC line is again seen, position unchanged. No pleural effusion or pneumothorax is noted. No interval osseous change is seen. Reading Location: [place] [address] Assessment and Plan . Assessment and plan: Subjective: No acute events o/n. Feels about the same as yesterday. Still dyspneic. No bleeding noted Physical Exam: Gen - NAD, morbidly obese HEENT - MMM. Sclera anicteric Resp - Diminished in bases. Breathing nonlabored CV - RRR. No m/g/r Abd - Soft, NT, ND Ext - No c/c. +LE edema Skin - No rashes? Neuro - Chronic blindness. Mild drowsiness but easily arousable and answers questions appropriately I have reviewed the pertinent vital sign, laboratory, and imaging data. ASSESSMENT: # Shock ? suspected multifactorial from sepsis/UTI, vaginal bleeding # UTI ? enterobacter and possible PsA # PNA - sputum Cx with PsA # JH # Postmenopausal vaginal bleeding # NAGMA - suspect 2/2 JH, excessive saline # Chronic liver disease ? noted on CT. ?MAFLD # Proteinuria # Severe hypoalbuminemia # DM # HTN # Thrombocytopenia # Chronic blindness # Super morbid obesity PLAN: -On levophed down to 3 mcg/min, wean to keep MAP > 65. Lactate wnl -Cont scheduled albumin, can likely stop in next 1-2 days if continued improvement. IVF stopped given significant net positive fluid balance -Cont IV hydrocortisone. Random cortisol yest AM wnl -Cont midodine -On 2L NC, wean to keep sats > 90%. Encourage IS, gentle mobilization as tolerated -Follow CBC, no obvious bleeding noted overnight. Transfuse 2U pRBC. Check DIC/hemolysis labs. If ongoing Hgb drop may need repeat CT imaging -Give dose of IV diuretics before and after pRBC transfusion today -No further vaginal bleeding thus far. Per prior discussion with gynecology, recommended OP f/u for this -TTE w/ LVEF 60% -Cont cefepime, can stop azithro now s/p 3 days tx. f/u final Cx speciation -Monitor BMP for worsening acidosis. Consider sodium bicarb if worsening -Follow LFTs, downtrending FEN/GI: PO diet, bowel regimen. Pt not eating much however Proph DVT/GI: SCDs, protonix Critical Care Time: 50 mins The entirety of this encounter was done via telemedicine using both audio and video. Consent was obtained.
--- NOTE | 2025-01-16 08:45 | PN.HOSP_ITS ---
Reason for Visit Chief Complaint: Abnormal labs, shortness of breath Subjective Subjective Complains of early satiety. Denies pain, shortness of breath. Objective Data Objective Data Vital Signs: Vital Signs Temp Pulse Resp BP Pulse Ox O2 Del Method O2 Flow Rate 36.6 C 65 18 110/49 L 95 Nasal Cannula 2 01/16/25 04:00 01/16/25 07:29 01/16/25 07:29 01/16/25 06:00 01/16/25 07:29 01/16/25 07:29 01/16/25 07:29 FiO2 60 01/15/25 15:00 Oxygen Flow Rate (L/min) 2 Oxygen Delivery Method Nasal Cannula Weight: 142.3 kg Body Mass Index (BMI) 59.3 Intake & Output: Intake and Output for Last 24 Hours 01/14/25 01/15/25 01/16/25 23:59 23:59 23:59 Intake Total 2835.66 / 2856.26 2063.56 / 2069.16 389.2 / 389.2 Output Total 650 / 650 650 / 825 275 / 275 Balance 2185.66 / 2206.26 1413.56 / 1244.16 114.2 / 114.2 Lab / Micro Data 01/16/25 10:00 01/16/25 02:13 Labs: Laboratory Results - last 24 hr 01/15/25 10:20: Lactic Acid 1.2, Total Bilirubin 1.22, Direct Bilirubin 0.85 H, AST 92 H, ALT 42 H, Alkaline Phosphatase 175 H, Ammonia 41.9, Total Protein 6.0, Albumin 1.7 L, Globulin 4.4 H, TSH 0.124 L, Cortisol AM Sample 15.50 01/16/25 02:13: WBC 6.9, RBC 2.03 L, Hgb 6.3 L, Hct 20.9 L, MCV 103.0 H, MCH 31.0, MCHC 30.1 L, RDW Std Deviation 65.3 H, RDW Coeff of Radha 17.3 H, Plt Count 62 L, MPV 9.7, Immature Gran % (Auto) 1.000 H, Neut % (Auto) 84.8 H, Lymph % (Auto) 7.9 L, [place] % (Auto) 6.2, Eos % (Auto) 0.0, Baso % (Auto) 0.1, Absolute Neuts (auto) 5.9, Absolute Lymphs (auto) 0.55 L, Nucleated RBC % 0.3, Differential Comment SCANNED, Platelet Estimate SLT DEC, Sodium 142, Potassium 4.5, Chloride 114 H, Carbon Dioxide 17.7 L, Anion Gap 10, BUN 74 H, Creatinine 2.29 H, Estim Creat Clear Calc 32.21 L, Est GFR (MDRD) Non-Af 23 L, B UN/Creatinine Ratio 32.5 H, Glucose 171 H, Calcium 9.6, Free T4 1.90 H Micro: Microbiology 01/13/25 11:15 Sputum, Expectorated/Coughed Gram Stain - Final 01/13/25 11:15 Sputum, Expectorated/Coughed Respiratory Culture - Preliminary GNR Poss Pseudomonas sp 01/12/25 09:48 Urine Catheter - South Urine Culture - Preliminary Enterobacter cloacae complex GNR Poss Pseudomonas sp 01/12/25 09:48 Urine Catheter - South Legionella Antigen - Final 01/12/25 09:48 Urine Catheter - South Streptococcus pneumoniae Antigen (M - Final 01/12/25 12:15 Blood Culture (Wb) - Right Hand Blood Culture - Preliminary No growth in 48 hours. 01/12/25 07:53 Blood Culture (Wb) - Anticubital Right Blood Culture - Preliminary No growth in 48 hours. ABG Data ABG results: ABG 01/15/25 10:59 Specimen Type SAIGE Sample Site Not entered VBG pH 7.34 VBG pO2 36 VBG HCO3 22 VBG Total CO2 23 VBG O2 Sat (Calc) 65 VBG Base Excess -4 L POC Mix VBG pCO2 Pt Tmp 40.3 L O2 Delivery Device Not entered Radiography Diagnostic Testing: Radiology Impression Chest X-Ray 01/15/25 10:15 IMPRESSION: Right upper quadrant abdominal surgical clips are again seen. Lungs are again significantly hypoinflated, but no gross acute pneumonic process is seen. No pleural effusion or pneumothorax is evident. The cardiomediastinal silhouette is stable, without evidence of cardiomegaly. A PICC line is again seen, position unchanged. No pleural effusion or pneumothorax is noted. No interval osseous change is seen. Reading Location: [place] [id number] Physical Exam Const alert and no apparent distress Constitutional Narrative: blind HEENT head/scalp atraumatic and moist oral mucous membranes Resp normal respiratory effort, no retractions, no use of accessory muscles and clear to auscultation bilaterally Cardio regular rate, regular rhythm, S1 normal heart sound and S2 normal heart sound GI normal to inspection, nondistended, normoactive bowel sounds, soft to palpation, non-tender and non-distended Neuro Sensorium / Orientation: awake and alert Assessment & Plan Assessment/Plan (1) Shock: PLAN: undifferentiated septic (pneumonia v compressive atelectasis) v cardiogenic (given massive edema) or combination thereof Still requiring norepinephrine, though continue to being titrated down (down to 5.6). Not a candidate for 30 cc/kg of IVF given anasarca/ascites/pleural effusions on admission. on cefepime and azithromycin strep and legionella antigens negative, SCx, BCx pending. UA concerning for UTI, UCx pending CCM following Urine culture positive for Enterobacter and possible Pseudomonas Started on IV hydrocortisone (2) JH (acute kidney injury): PLAN: improving baseline creatinine 0.99 (12/09/24), went up to 3.22, down to 2.22 FENa 2.6. Suspect prerenal and ATN. Kidney US shows normal right kidney. Nonvisualized left kidney (though seen on CT) Monitor. (3) CHF (congestive heart failure): PLAN: chronic. HFpEF. compensated. echo shows an EF of no diuresis given shock (4) Anemia: PLAN: acute on chronic. Hg down to 7.3. Transfused 1 unit of PRBCs. Down again to 6.3 (verified as accurate with repeat CBC) Pt with post-menopausal bleeding. Pelvic US limited. Follow up with [employer] as outpt. 2 units PRBCs today Haptoglobin ordered. Will order iron, TIBC, ferritin, B12, folate. PLAN: Plan chronic medical conditions: * obesity class III: complicates care and recovery * dementia: rivastigmine * afib: continue amiodarone. hold metoprolol given shock. VTE prophylaxis: SCDs. Charges/Coding Visit Charges Inpatient E&M: 59857 Subs Hosp L2
[2025-01-16] MEDS: Polyethylene Glycol 3350 17 GM PACKET PO ×2 (10:15→21:30)
[2025-01-16] MEDS: Cefepime HCl 1 GM in 0.9% Normal Saline (50mL MB+) 50 ML IV (10:15)
[2025-01-16] MEDS: LINAGLIPTIN 5 MG TABLET PO (10:16)
[2025-01-16 10:23] LABS: Hematocrit 20.1 % (37-47); Hemoglobin 6.3 g/dL (12.0-15.0); Immature Granulocytes Count 0.130 X10^3/uL (0.0-0.0); Mean Corp Hgb Conc 31.3 g/dL (32-36); Mean Corpuscular Volume 101.0 fL (81-99); Mean Platelet Vol. 10.8 fl (6.2-12.0); NRBC Flagged by Analyzer 0 % (0-5); POSITIVE COUNT YES; POSITIVE DIFFERENTIAL YES; Platelet Count 59 K/mm3 (150-450); RBC Distribution Width CV 17.5 % (11.6-14.6); RBC Distribution Width SD 63.7 fl (35.1-43.9); Red Blood Count 1.99 M/mm3 (4.2-5.4); White Blood Count 6.5 K/mm3 (4.4-11.0)
[2025-01-16 10:25] LABS: Immature Platelet Fraction 1.4 % (1.0-7.9); Immature Reticulocyte Fraction 24.30 % (3.00-15.90); Platelet Count 58 K/mm3 (150-450); Reticulocyte Count 3.18 % (0.5-1.5)
[2025-01-16 10:35] LABS: Prothrombin Time (Protime)PT. 19.9 SECONDS (11.7-14.9)
[2025-01-16 10:36] LABS: Fibrinogen 256 mg/dl (203-444); Partial Thromboplast Time 33.4 Seconds (24.1-36.2)
[2025-01-16 10:39] LABS: D-Dimer Quantitative (DVT/PE) 3.77 FEU/ug/m (0.27-0.49)
[2025-01-16 10:52] LABS: LDH 139 U/L (84-246)
[2025-01-16] MEDS: 0.9% Normal Saline (250mL Bag) 250 ML 15 ML IV (13:15)
[2025-01-16 20:28] LABS: Hematocrit 24.8 % (37-47); Hemoglobin 7.8 g/dL (12.0-15.0)
[2025-01-16 21:05] LABS: Ferritin 149 ng/mL (22-378); Vitamin B12 1748 pg/mL (180-914)
[2025-01-16 21:07] LABS: FOLATES,SERUM (FOLIC ACID) 5.55 ng/mL (4.60-34.80)
[2025-01-16] MEDS: Senna/Docusate Sodium 1 Tablet 2 TABLET PO (21:31)
[2025-01-17] VITALS (27 sets, daily range): BP systolic 101–148; BP diastolic 40–66; PULSE 59–82; RESP 13–28; TEMP 36.6–36.7; O2SAT 87–95; BMI 60.9
[2025-01-17] MEDS: Albumin Human 25% (100 mL) 25 GM/100 ML BAG IV ×2 (00:15→08:27)
[2025-01-17 03:32] LABS: Iron 102 ug/dL (50-170); Iron Binding Capacity,Unsat < 17 ug/dL (228-428)
[2025-01-17] MEDS: 0.9% Saline Lock 10 ML Syringe IV ×3 (05:52→15:17)
[2025-01-17 06:08] LABS: Hematocrit 24.8 % (37-47); Hemoglobin 7.6 g/dL (12.0-15.0); Mean Corp Hgb Conc 30.6 g/dL (32-36); Mean Corpuscular Volume 98.0 fL (81-99); Mean Platelet Vol. 9.7 fl (6.2-12.0); POSITIVE COUNT YES; POSITIVE MORPHOLOGY YES; Platelet Count 61 K/mm3 (150-450); RBC Distribution Width CV 19.6 % (11.6-14.6); RBC Distribution Width SD 69.0 fl (35.1-43.9); Red Blood Count 2.53 M/mm3 (4.2-5.4); White Blood Count 6.9 K/mm3 (4.4-11.0)
[2025-01-17 06:31] LABS: Anion Gap 12 (5-15); BUN 79 mg/dL (4-19); BUN/Creat Ratio 32.0 RATIO (10-20); Calcium,Total 10.3 mg/dL (7.6-11.0); Carbon Dioxide 17.2 mmol/L (21.0-32.0); Chloride 112 mmol/L (98-108); Estimated Creatinine Clearance 30.55 ml/min (50-250); Glucose 164 mg/dL (70-99); Magnesium 2.6 mg/dL (1.5-2.2); Potassium 4.3 mmol/L (3.3-5.1)
[2025-01-17 06:45] LABS: Scan Indicated on CBC? Y/N YES- FLAGS NOTED
[2025-01-17 07:01] LABS: AST(SGOT) 53 U/L (<=31); Alanine Aminotransfer ALT/SGPT 28 U/L (<=34); Albumin, Serum 3.5 g/dL (3.4-4.8); Alkaline Phosphatase 122 U/L (35-104); Bilirubin, Direct 1.35 mg/dL (0.00-0.30); Globulin 3.2 g/dL (2.2-4.2)
--- NOTE | 2025-01-17 07:13 | PN.HOSP_ITS ---
Reason for Visit Chief Complaint: Abnormal labs, shortness of breath Subjective Subjective short of breath when she turned on her right side and became hypoxic. Objective Data Objective Data Vital Signs: Vital Signs Temp Pulse Resp BP Pulse Ox O2 Del Method O2 Flow Rate 36.7 C 62 21 H 118/46 L 91 Nasal Cannula 2 01/17/25 06:00 01/17/25 06:00 01/17/25 06:00 01/17/25 06:00 01/17/25 06:00 01/17/25 06:00 01/17/25 06:00 FiO2 60 01/15/25 15:00 Oxygen Flow Rate (L/min) 2 Oxygen Delivery Method Nasal Cannula Weight: 146.3 kg Body Mass Index (BMI) 60.9 Intake & Output: Intake and Output for Last 24 Hours 01/15/25 01/16/25 01/17/25 23:59 23:59 23:59 Intake Total 2063.56 / 2069.16 2157.28 / 2157.28 220 / 220 Output Total 650 / 825 525 / 525 200 / 200 Balance 1413.56 / 1244.16 1632.28 / 1632.28 20 / 20 Lab / Micro Data 01/17/25 05:57 01/17/25 05:57 Labs: Laboratory Results - last 24 hr 01/16/25 10:00: WBC 6.5, RBC 1.99 L, Hgb 6.3 L, Hct 20.1 L, MCV 101.0 H, MCH 31.7, MCHC 31.3 L, RDW Std Deviation 63.7 H, RDW Coeff of Radha 17.5 H, Plt Count 59 L, MPV 10.8, Immature Gran % (Auto) 2.000 H, Neut % (Auto) 84.8 H, Lymph % (Auto) 7.5 L, [place] % (Auto) 5.7, Eos % (Auto) 0.0, Baso % (Auto) 0.0, Absolute Neuts (auto) 5.5, Absolute Lymphs (auto) 0.49 L, Nucleated RBC % 0, Immature Plt Fraction 1.4, Retic Count 3.18 H, Immature Retic Fraction 24.30 H, Retic Hgb Equivalent 33.4, PT 19.9 H, INR 1.7, APTT 33.4, Fibrinogen 256, D-Dimer Quant (PE/DVT) 3.77 H*, Lactate Dehydrogenase 139 01/16/25 11:35: Blood Type A POSITIVE, Antibody Screen NEGATIVE, Crossmatch See Detail 01/16/25 20:18: Hgb 7.8 L, Hct 24.8 L, Iron 102, TIBC , Iron Saturation , U nsaturated IBC < 17 L, Ferritin 149, Vitamin B12 1748 H, Serum Folate 5.55 01/17/25 05:57: WBC 6.9, RBC 2.53 L, Hgb 7.6 L, Hct 24.8 L, MCV 98.0, MCH 30.0, MCHC 30.6 L, RDW Std Deviation 69.0 H, RDW Coeff of Radha 19.6 H, Plt Count 61 L, MPV 9.7, Sodium 141, Potassium 4.3, Chloride 112 H, Carbon Dioxide 17.2 L, Anion Gap 12, BUN 79 H, Creatinine 2.46 H, Estim Creat Clear Calc 30.55 L, Est GFR (MDRD) Non-Af 21 L, BUN/Creatinine Ratio 32.0 H, Glucose 164 H, Calcium 10.3, Phosphorus 3.9, Magnesium 2.6 H, Total Bilirubin 2.18 H, Direct Bilirubin 1.35 H , AST 53 H, ALT 28, Alkaline Phosphatase 122 H, Total Protein 6.6, Albumin 3.5, Globulin 3.2 Micro: Microbiology 01/12/25 09:48 Urine Catheter - South Urine Culture - Final Enterobacter cloacae complex Pseudomonas aeruginosa 01/12/25 09:48 Urine Catheter - South Legionella Antigen - Final 01/12/25 09:48 Urine Catheter - South Streptococcus pneumoniae Antigen (M - Final 01/13/25 11:15 Sputum, Expectorated/Coughed Gram Stain - Final 01/13/25 11:15 Sputum, Expectorated/Coughed Respiratory Culture - Preliminary Pseudomonas aeruginosa 01/12/25 12:15 Blood Culture (Wb) - Right Hand Blood Culture - Preliminary No growth in 48 hours. 01/12/25 07:53 Blood Culture (Wb) - Anticubital Right Blood Culture - Preliminary No growth in 48 hours. Physical Exam Const alert and no apparent distress HEENT head/scalp atraumatic and moist oral mucous membranes Resp normal respiratory effort, no retractions, no use of accessory muscles and clear to auscultation bilaterally Cardio regular rate, regular rhythm, S1 normal heart sound and S2 normal heart sound GI normal to inspection, nondistended, normoactive bowel sounds and soft to palpation GI Narrative: Ecchymosis on anterior abdomen. Extremity General Extremity: edema bilateral lower extremity Details: moderate Neuro Sensorium / Orientation: awake Assessment & Plan Assessment/Plan (1) Shock: PLAN: undifferentiated septic (pneumonia v compressive atelectasis) v cardiogenic (given massive edema) or combination thereof Since weaned of norepi on 01/16. Not a candidate for 30 cc/kg of IVF given anasarca/ascites/pleural effusions on admission. on cefepime strep and legionella antigens negative, SCx, BCx pending. UA concerning for UTI, UCx pending CCM following Urine culture positive for Enterobacter and possible Pseudomonas continue IV hydrocortisone and midodrine (2) JH (acute kidney injury): PLAN: improving baseline creatinine 0.99 (12/09/24), went up to 3.22, down to 2.22, but trending up to 2.4. FENa 2.6. Suspect prerenal and ATN. Kidney US shows normal right kidney. Nonvisualized left kidney (though seen on CT) Furosemide being held. (3) CHF (congestive heart failure): PLAN: chronic. HFpEF. compensated. echo shows an EF of no diuresis given shock (4) Anemia: PLAN: acute on chronic. Hg down to 7.3. Transfused 1 unit of PRBCs. Down again to 6.3 (verified as accurate with repeat CBC) on 01/16. Hg improved to 7.6 after transfusions of 2 units PRBCs. Continue to monitor Pt with post-menopausal bleeding. Pelvic US limited. Follow up with Sales Applications Engineer as outpt. Haptoglobin pending. Iron 102, Ferritin 149. B12 1748, folate 5.55 (5) Hyperbilirubinemia: PLAN: total bili 2.18 (from the 12th was 1.22), direct 1.35 (from the 12th was 0.85) monitor for now. check abd US. PLAN: Plan chronic medical conditions: * obesity class III: complicates care and recovery * dementia: rivastigmine * afib: continue amiodarone. hold metoprolol given shock. VTE prophylaxis: SCDs. Charges/Coding Visit Charges Inpatient E&M: 41869 Subs Hosp L2
--- NOTE | 2025-01-17 07:21 | US_ITS ---
PROCEDURE: ABDOMEN LIMITED 01/17/2025 REASON FOR EXAM: ELEVATED BILIRUBIN TECHNIQUE: Procedure Code: USABDL Modality: US Procedure: ABDOMEN LIMITED COMPARISON: 11 January 2025. FINDINGS: Liver: Mildly heterogeneous and coarsened appearance of the liver. No focal mass. Normal flow. Gallbladder: Removed Biliary ducts: Normal measuring 5 mm. No intrahepatic or extrahepatic ductal dilatation Right kidney measures 9.8 x 5.7 cm. Mild cortical thinning. Contains simple cysts. Small amount of ascites. US/Abdomen Limited IMPRESSION: Probable cirrhosis of the liver. Cholecystectomy. Reading Location: [id number]
[2025-01-17] MEDS: Albuterol 2.5 MG/3 ML VIAL.NEB. INHALATION ×3 (07:47→19:52)
--- NOTE | 2025-01-17 08:33 | PCM.PN.TICU ---
Objective Data Objective Data Vital Signs: Vital Signs Last response Temperature 36.7 C 01/17/25 06:00 Temperature Source Core 01/17/25 06:00 Pulse Rate 65 01/17/25 07:49 Pulse Strength Normal (2+) 01/16/25 10:00 Respiratory Rate 19 H 01/17/25 07:49 Respiratory Effort Normal, Non-Labored 01/17/25 04:00 Respiratory Depth Normal 01/17/25 04:00 Respiratory Pattern Normal 01/17/25 07:49 Blood Pressure 118/46 L 01/17/25 06:00 Blood Pressure Mean 70 01/17/25 06:00 Blood Pressure Source Monitor 01/17/25 06:00 Blood Pressure Position Semi-Fowlers 01/17/25 06:00 Blood Pressure Location Right Forearm 01/17/25 06:00 Pulse Ox 93 01/17/25 07:49 Oxygen Delivery Method Nasal Cannula 01/17/25 07:49 Oxygen Flow Rate (L/min) 3.5 01/17/25 07:49 Fraction of Inspired Oxygen (FIO2) 60 01/15/25 15:00 I&O: I&O Last 24 Hours 01/16/25 01/16/25 01/17/25 11:59 23:59 11:59 Intake Total 702.67 / 2157.28 1454.61 / 2157.28 220 / 220 Output Total 325 / 525 200 / 525 200 / 200 Balance 377.67 / 1632.28 1254.61 / 1632.28 20 / 20 I&O: Total Stay 01/11/25 18:44 thru 01/17/25 06:00 Intake Total 85685.11 Output Total 3625 Balance 19127.11 Current Meds Ordered / Administered: Current meds ordered / Administered Generic Name Dose Route Start Last Admin Trade Name Freq PRN Reason Stop Dose Admin Acetaminophen 1,000 mg 01/12/25 00:29 Acetaminophen 500 Mg Tablet PO Q8H PRN PRN Pain Score 1-10 Albuterol Sulfate 2.5 mg 01/13/25 11:00 01/17/25 07:47 Albuterol 2.5 Mg/3 Ml Vial.Neb. INHALATION 2.5 mg Q6HWA.RT MACKENZIE Administration Amiodarone HCl 200 mg 01/12/25 10:00 01/16/25 10:13 Amiodarone 200 Mg Tablet PO 200 mg DAILY MACKENZIE Administration Calamine/Phenol 1 applic 01/12/25 22:00 01/17/25 05:51 Menthol/Lanolin/Calamine/Znox 113 Gm Tube TOPICAL 1 applic TID MACKENZIE Administration Protocol Ferrous Sulfate 325 mg 01/12/25 12:00 01/16/25 12:45 Ferrous Sulfate 325 Mg Tablet PO 325 mg DAILY@1200 MACKENZIE Administration Hydrocortisone Sodium Succinate 100 mg 01/15/25 10:00 01/17/25 05:51 Hydrocortisone Sod Succinate 100 Mg/2 Ml Vial IV 100 mg Q8 MACKENZIE Administration Sodium Chloride 250 mls @ 15 mls/hr 01/12/25 00:38 01/16/25 18:00 IV Infused .[id number] PRN Infusion Saline Flush Sodium Chloride 250 mls @ 15 mls/hr 01/12/25 00:38 IV .[id number] PRN Additional IVPB Infusion Norepinephrine Bitartrate 8 mg 250 mls @ 9.375 mls/hr 01/12/25 06:55 01/16/25 19:11 / Sodium Chloride CONT INF Not Given .[id number] MACKENZIE Protocol 5 MCG/MIN Cefepime HCl 1 gm/ Sodium 50 mls @ 100 mls/hr 01/15/25 10:00 01/16/25 10:45 Chloride IV Infused Q24 MACKENZIE Infusion Albumin Human 25 gm in 100 mls @ 60 mls/hr 01/16/25 16:00 01/17/25 01:56 IV 01/19/25 16:01 Infused Q8H MACKENZIE Infusion Linagliptin 5 mg 01/12/25 10:00 01/16/25 10:16 Linagliptin 5 Mg Tablet PO 5 mg DAILY MACKENZIE Administration Magnesium Hydroxide 30 ml 01/12/25 00:29 01/17/25 05:59 Magnesium Hydroxide 30 Ml Udc PO 30 ml DAILY PRN Administration constipation Midodrine 10 mg 01/12/25 12:00 01/16/25 17:31 Midodrine Hcl 5 Mg Tablet PO 10 mg TIDCM MACKENZIE Administration Mirtazapine 15 mg 01/12/25 22:00 01/16/25 21:31 Mirtazapine 15 Mg Tablet PO 15 mg QHS MACKENZIE Administration Nystatin 1 applic 01/12/25 22:00 01/17/25 05:51 Nystatin Powder 15gm Bottle TOPICAL 1 applic TID MACKENZIE Administration Protocol Ondansetron HCl 4 mg 01/14/25 22:00 01/14/25 22:15 Ondansetron 4 Mg/2 Ml Vial IV 4 mg Q8H PRN PRN Administration NAUSEA/VOMITING Pantoprazole Sodium 40 mg 01/12/25 16:25 01/16/25 10:14 Pantoprazole Sodium 40 Mg Tablet PO 40 mg DAILY MACKENZIE Administration Polyethylene Glycol 17 gm 01/16/25 10:00 01/16/25 21:30 Polyethylene Glycol 3350 17 Gm Packet PO 17 gm BID MACKENZIE Administration Senna/Docusate Sodium 2 tablet 01/12/25 22:00 01/16/25 21:31 Senna/Docusate Sodium 1 Tablet PO 2 tablet QHS MACKENZIE Administration Sodium Chloride 10 - 40 ml 01/12/25 00:38 01/17/25 05:52 0.9% Saline Lock 10 Ml Syringe IV 20 ml UD PRN Administration SALINE FLUSH Lab / Micro Data 01/17/25 05:57 01/17/25 05:57 Labs: Laboratory Results - last 24 hr 01/16/25 10:00: WBC 6.5, RBC 1.99 L, Hgb 6.3 L, Hct 20.1 L, MCV 101.0 H, MCH 31.7, MCHC 31.3 L, RDW Std Deviation 63.7 H, RDW Coeff of Rahda 17.5 H, Plt Count 59 L, MPV 10.8, Immature Gran % (Auto) 2.000 H, Neut % (Auto) 84.8 H, Lymph % (Auto) 7.5 L, [place] % (Auto) 5.7, Eos % (Auto) 0.0, Baso % (Auto) 0.0, Absolute Neuts (auto) 5.5, Absolute Lymphs (auto) 0.49 L, Nucleated RBC % 0, Immature Plt Fraction 1.4, Retic Count 3.18 H, Immature Retic Fraction 24.30 H, Retic Hgb Equivalent 33.4, PT 19.9 H, INR 1.7, APTT 33.4, Fibrinogen 256, D-Dimer Quant (PE/DVT) 3.77 H*, Lactate Dehydrogenase 139 01/16/25 11:35: Blood Type A POSITIVE, Antibody Screen NEGATIVE, Crossmatch See Detail 01/16/25 20:18: Hgb 7.8 L, Hct 24.8 L, Iron 102, TIBC , Iron Saturation , Unsaturated IBC < 17 L, Ferritin 149, Vitamin B12 1748 H, Serum Folate 5.55 01/17/25 05:57: WBC 6.9, RBC 2.53 L, Hgb 7.6 L, Hct 24.8 L, MCV 98.0, MCH 30.0, MCHC 30.6 L, RDW Std Deviation 69.0 H, RDW Coeff of Radha 19.6 H, Plt Count 61 L, MPV 9.7, Sodium 141, Potassium 4.3, Chloride 112 H, Carbon Dioxide 17.2 L, Anion Gap 12, BUN 79 H, Creatinine 2.46 H, Estim Creat Clear Calc 30.55 L, Est GFR (MDRD) Non-Af 21 L, BUN/Creatinine Ratio 32.0 H, Glucose 164 H, Calcium 10.3, Phosphorus 3.9, Magnesium 2.6 H, Total Bilirubin 2.18 H, Direct Bilirubin 1.35 H, AST 53 H, ALT 28, Alkaline Phosphatase 122 H, Total Protein 6.6, Albumin 3.5, Globulin 3.2 Micro: Microbiology 01/12/25 09:48 Urine Catheter - South Urine Culture - Final Enterobacter cloacae complex Pseudomonas aeruginosa 01/12/25 09:48 Urine Catheter - South Legionella Antigen - Final 01/12/25 09:48 Urine Catheter - South Streptococcus pneumoniae Antigen (M - Final 01/13/25 11:15 Sputum, Expectorated/Coughed Gram Stain - Final 01/13/25 11:15 Sputum, Expectorated/Coughed Respiratory Culture - Preliminary Pseudomonas aeruginosa Imaging Radiology Impression Abdomen Ultrasound 01/17/25 07:21 IMPRESSION: Probable cirrhosis of the liver. Cholecystectomy. Reading Location: [id number] Assessment and Plan . Assessment and plan: Subjective: No acute events o/n. Feels overall a bit better, though had episode of dyspnea/anxiety this AM Physical Exam: Gen - NAD, morbidly obese HEENT - MMM. Sclera anicteric Resp - Diminished in bases. Breathing nonlabored CV - RRR. No m/g/r Abd - Soft, NT, ND Ext - No c/c. +LE edema Skin - No rashes? Neuro - Chronic blindness. Mild drowsiness but easily arousable and answers questions appropriately I have reviewed the pertinent vital sign, laboratory, and imaging data. ASSESSMENT: # Shock ? suspected multifactorial from sepsis/UTI, vaginal bleeding # UTI ? enterobacter and possible PsA # PNA - sputum Cx with PsA # JH # Postmenopausal vaginal bleeding # NAGMA - suspect 2/2 JH, excessive saline # Chronic liver disease/possible cirrhosis?? noted on CT/US. ?MAFLD # Proteinuria # Severe hypoalbuminemia # DM # HTN # Thrombocytopenia # Chronic blindness # Super morbid obesity PLAN: -Off pressors now, monitor BP -Stop albumin now. IVF stopped previously given significant net positive fluid balance (~12L net pos charted since admit) -Cont IV hydrocortisone. Random AM cortisol wnl -Cont midodine -On 3.5L NC, wean to keep sats > 90%. Encourage IS, gentle mobilization as tolerated -Monitor Cr, UOP. Holding IVF as above, holding additional diuretics for now as well pending further improvement in renal function -Follow CBC. s/p 2U pRBC yesterday with IV lasix. No obvious active bleeding, had some reported scant vaginal discharge with brown/old blood appearance. May need repeat imaging if ongoing Hgb drop, GI eval -No further vaginal bleeding thus far. Per prior discussion with gynecology, recommended OP f/u for this -TTE w/ LVEF 60% -Cont cefepime, stopped azithro now s/p 3 days tx. f/u final Cx speciation -Monitor BMP for worsening acidosis. Consider sodium bicarb if worsening -Follow LFTs, downtrending. Bili rising. Repeat abd US without acute biliary pathology FEN/GI: PO diet, bowel regimen. Pt not eating much however Proph DVT/GI: SCDs, protonix Critical Care Time: 50 mins The entirety of this encounter was done via telemedicine using both audio and video. Consent was obtained.
[2025-01-17] MEDS: LINAGLIPTIN 5 MG TABLET PO (09:02)
[2025-01-17] MEDS: Cefepime HCl 1 GM in 0.9% Normal Saline (50mL MB+) 50 ML IV (09:03)
[2025-01-17] MEDS: Polyethylene Glycol 3350 17 GM PACKET PO ×2 (09:03→21:44)
[2025-01-17 16:15] LABS: Allen Test Positive; Base Excess -8 mmol/L (-2 to +2); FI02 3.5; PO2 66 mmHG (75-100); SITE R Radial; SO2 89 % (95-99)
[2025-01-17] MEDS: Senna/Docusate Sodium 1 Tablet 2 TABLET PO (21:45)
--- NOTE | 2025-01-17 23:05 | RAD_ITS ---
PROCEDURE: CHEST 1 VIEW (PORTABLE) 01/17/2025 REASON FOR EXAM: SHORTNESS OF BREATH TECHNIQUE: Frontal view of the chest. COMPARISON: 01/15/2025 FINDINGS: LINES: Left PICC line tip terminating in the proximal SVC. LUNGS AND PLEURA: New blunting of the right costophrenic angle. Diffuse airspace opacities bilaterally, increased since the prior study. No pneumothorax. HEART AND MEDIASTINUM: The cardiac silhouette is mildly enlarged. The mediastinal contour is normal. PULMONARY VESSELS: Moderate prominence of the central pulmonary vasculature. BONES: No acute osseous abnormality. Arthritic changes of both glenohumeral joints with severe subacromial space narrowing. RAD/Chest 1 View (Portable) IMPRESSION: 1. Cardiomegaly with moderate vascular congestion 2. New right pleural effusion. 3. Increased bilateral airspace disease, likely edema and/or infection. Reading Location: [id number]
[2025-01-17 23:20] LABS: FI02 6.0; SITE Not entered; VBG BASE EXCESS -5 mmol/L (-1.0-3.5); VBG PO2 42 mmHg (25-40); VBG SO2 71 % (50-70); VBG TCO2 23 mmol/L (23-33)
[2025-01-17 23:44] LABS: Pro- Brain NATRIURETIC PEPTIDE 17083 pg/mL (<=900)
[2025-01-18] VITALS (25 sets, daily range): BP systolic 120–149; BP diastolic 45–108; PULSE 75–94; RESP 11–29; TEMP 36.2–36.7; O2SAT 92–97; BMI 61.4
[2025-01-18 04:57] LABS: Hematocrit 24.9 % (37-47); Hemoglobin 7.7 g/dL (12.0-15.0); Immature Granulocytes Count 0.100 X10^3/uL (0.0-0.0); Mean Corp Hgb Conc 30.9 g/dL (32-36); Mean Corpuscular Volume 98.8 fL (81-99); Mean Platelet Vol. 9.9 fl (6.2-12.0); NRBC Flagged by Analyzer 0.4 % (0-5); POSITIVE COUNT YES; POSITIVE DIFFERENTIAL YES; POSITIVE MORPHOLOGY YES; Platelet Count 62 K/mm3 (150-450); RBC Distribution Width CV 19.7 % (11.6-14.6); RBC Distribution Width SD 68.8 fl (35.1-43.9); Red Blood Count 2.52 M/mm3 (4.2-5.4); White Blood Count 6.7 K/mm3 (4.4-11.0)
[2025-01-18 04:58] LABS: Differential Indicated SCAN CRITERIA MET
[2025-01-18 05:19] LABS: Anisocytosis 2+; Differential Comment SCANNED
[2025-01-18 05:22] LABS: AST(SGOT) 45 U/L (<=31); Alanine Aminotransfer ALT/SGPT 27 U/L (<=34); Albumin, Serum 3.2 g/dL (3.4-4.8); Alkaline Phosphatase 122 U/L (35-104); Anion Gap 11 (5-15); BUN 90 mg/dL (4-19); BUN/Creat Ratio 33.8 RATIO (10-20); Calcium,Total 10.7 mg/dL (7.6-11.0); Carbon Dioxide 17.3 mmol/L (21.0-32.0); Chloride 115 mmol/L (98-108); Estimated Creatinine Clearance 28.53 ml/min (50-250); Globulin 3.2 g/dL (2.2-4.2); Glucose 185 mg/dL (70-99); Potassium 4.5 mmol/L (3.3-5.1)
[2025-01-18] MEDS: Albuterol 2.5 MG/3 ML VIAL.NEB. INHALATION ×3 (06:37→19:30)
--- NOTE | 2025-01-18 07:36 | PN.CC_ITS ---
Assessment & Plan Assessment/Plan (1) Shock: (2) Pneumonia: PLAN: Plan RECOMMENDATIONS: 1. Continue to wean supplemental oxygen to maintain saturations at or above 90%. 2. Continue to hold diuretics for now, pending improvement in renal function. 3. Wean stress dose steroids as ordered. If the patient remains hemodynamically stable, stress dose steroids can be discontinued tomorrow. 4. Continue antimicrobial therapy. 5. Continue to monitor H&H. Transfuse if hemoglobin drops below 7 g/dL. 6. If recurrent vaginal bleeding occurs, consultation will be placed to SOFTWARE DEVELOPMENT LEADER. 7. The patient is medically stable for transfer out of the intensive care unit. Please call with any questions. IMPRESSIONS: 1. Multifactorial shock Likely related to underlying sepsis secondary to pseudomonal pneumonia coupled with hypovolemia in the setting of postmenopausal vaginal bleeding. The patient was ultimately fluid resuscitated and did receive transfusion of packed red blood cells. With supportive care, the patient was able to be weaned from vasopressor support and remains hemodynamically stable. Echocardiogram revealed normal intact systolic function. Recommend continuing antimicrobials to complete 7 days of therapy. The patient's stress dose steroids will be weaned today. If she remains hemodynamically stable tomorrow, stress dose steroids can be discontinued. If she were to have recurrent vaginal bleeding, consultation will be placed to SOFTWARE DEVELOPMENT LEADER. Scheduled midodrine will be continued. 2. Acute kidney injury Most likely prerenal in etiology in the setting of #1. Renal ultrasound was unremarkable. Continue to monitor urine output. No current indication for renal replacement therapy. 3. Postmenopausal vaginal bleeding Case was discussed briefly with SOFTWARE DEVELOPMENT LEADER, who recommended possible pelvic MRI, given suboptimal transvaginal ultrasound. Recommend outpatient follow-up with SOFTWARE DEVELOPMENT LEADER after discharge if the patient remains clinically stable. If she were to develop recurrent vaginal bleeding, consultation can be placed while inpatient. 4. History of super morbid obesity/GERD/thrombocytopenia/hypertension/diabetes mellitus Complicates care, management, recovery and prognosis. Continue supportive measures as noted above. This note was generated with [employer] dictation software. It may contain incorrect words, spelling, and punctuation that were not noted in checking the note before signing. Subjective Subjective The patient was seen and examined at the bedside this morning. Events from the last 24 hours have been reviewed. The patient is currently afebrile, hemodynamically stable and maintaining appropriate oxygen saturations on 3 L/min via nasal cannula. The patient is documented to be overall net +13 L for the hospitalization. She has no specific complaints this morning. White blood cell count is normal. Hemoglobin is stable at 7.7 g/dL. Objective Data Objective Data The patient's most recent lab work, culture data and imaging studies have all been personally reviewed. Sputum culture was positive for Pseudomonas. Strep and urine Legionella antigens were negative. Vital Signs: Vital Signs Temp Pulse Resp BP Pulse Ox O2 Del Method O2 Flow Rate 98.0 F 77 22 H 128/47 H 95 Nasal Cannula 4 01/17/25 22:00 01/18/25 06:39 01/18/25 06:39 01/18/25 06:00 01/18/25 06:39 01/18/25 06:39 01/18/25 06:39 FiO2 60 01/15/25 15:00 Oxygen Flow Rate (L/min) 4 Oxygen Delivery Method Nasal Cannula Weight: 325 lb 6.436 oz Body Mass Index (BMI) 61.4 Intake & Output: Intake and Output for Last 24 Hours 01/16/25 01/17/25 01/18/25 23:59 23:59 23:59 Intake Total 2157.28 / 2157.28 869 / 869 0 / 0 Output Total 525 / 525 325 / 325 175 / 175 Balance 1632.28 / 1632.28 544 / 544 -175 / -175 Lab / Micro Data Attestation: I reviewed the patient's lab results. 01/18/25 04:45 01/18/25 04:45 Labs: Laboratory Results - last 24 hr 01/16/25 10:00: Haptoglobin 72 01/17/25 23:05: [place] [address] H 01/18/25 04:45: WBC 6.7, RBC 2.52 L, Hgb 7.7 L, Hct 24.9 L, MCV 98.8, MCH 30.6, MCHC 30.9 L, RDW Std Deviation 68.8 H, RDW Coeff of Radha 19.7 H, Plt Count 62 L, MPV 9.9, Immature Gran % (Auto) 1.500 H, Neut % (Auto) 87.2 H, Lymph % (Auto) 4.2 L, [place] % (Auto) 7.0, Eos % (Auto) 0.0, Baso % (Auto) 0.1, Absolute Neuts (auto) 5.9, Absolute Lymphs (auto) 0.28 L, Nucleated RBC % 0.4, Differential Comment SCANNED, Platelet Estimate MKD DEC, Anisocytosis 2+, Sodium 143, Potassium 4.5, Chloride 115 H, Carbon Dioxide 17.3 L, Anion Gap 11, BUN 90 H, C reatinine 2.65 H, Estim Creat Clear Calc 28.53 L, Est GFR (MDRD) Non-Af 19 L, B UN/Creatinine Ratio 33.8 H, Glucose 185 H, Calcium 10.7, Total Bilirubin 1.94 H, AST 45 H, ALT 27, Alkaline Phosphatase 122 H, Total Protein 6.4, Albumin 3.2 L, Globulin 3.2, Albumin/Globulin Ratio 1.0 Micro: Microbiology 01/12/25 12:15 Blood Culture (Wb) - Right Hand Blood Culture - Final No growth in 5 days. 01/13/25 11:15 Sputum, Expectorated/Coughed Gram Stain - Final 01/13/25 11:15 Sputum, Expectorated/Coughed Respiratory Culture - Final Pseudomonas aeruginosa 01/12/25 07:53 Blood Culture (Wb) - Anticubital Right Blood Culture - Final No growth in 5 days. 01/12/25 09:48 Urine Catheter - South Urine Culture - Final Enterobacter cloacae complex Pseudomonas aeruginosa 01/12/25 09:48 Urine Catheter - South Legionella Antigen - Final 01/12/25 09:48 Urine Catheter - South Streptococcus pneumoniae Antigen (M - Final ABG Data ABG results: ABG 01/17/25 01/17/25 16:10 23:17 Specimen Type ART SAIGE Sample Site R Radial Not entered pH 7.24 L Bicarbonate Actual 19.5 L Total CO2 21 Base Excess -8 L O2 Saturation 89 L O2 % 3.5 6.0 ABG pCO2 45.8 H ABG pO2 66 L Jimenez Test Positive VBG pH 7.29 L VBG pO2 42 H VBG HCO3 22 VBG Total CO2 23 VBG O2 Sat (Calc) 71 H VBG Base Excess -5 L POC Mix VBG pCO2 Pt Tmp 45.3 O2 Delivery Device Cannula Cannula Vent Mode Not entered Radiography Diagnostic Testing: Radiology Impression Abdomen Ultrasound 01/17/25 07:21 IMPRESSION: Probable cirrhosis of the liver. Cholecystectomy. Reading Location: [facility] Chest X-Ray 01/17/25 23:05 IMPRESSION: 1. Cardiomegaly with moderate vascular congestion 2. New right pleural effusion. 3. Increased bilateral airspace disease, likely edema and/or infection. Reading Location: [facility] Physical Exam Const alert and no apparent distress Constitutional Narrative: Super morbidly obese. Resting comfortably in bed. General Appearance: cooperative HEENT normocephalic, head/scalp atraumatic and moist oral mucous membranes Eyes PERRL, EOMs intact bilaterally and conjunctivae normal Neck supple General: trachea midline Chest inspection of chest normal Resp normal respiratory effort Auscultation: diminished lung sounds Cardio regular rate, regular rhythm, S1 normal heart sound and S2 normal heart sound GI normal to inspection, nondistended, normoactive bowel sounds Extremity Extremity Narrative: Wrapped lower extremities. General Extremity: Negative for clubbing or edema Neuro oriented x3, CN's II-XII intact bilaterally and no focal motor deficits Psych cooperative and affect normal Charges/Coding Visit Charges Inpatient E&M: 44066 Subs Hosp L2
[2025-01-18] MEDS: LINAGLIPTIN 5 MG TABLET PO (08:36)
[2025-01-18] MEDS: Cefepime HCl 1 GM in 0.9% Normal Saline (50mL MB+) 50 ML IV (09:55)
--- NOTE | 2025-01-18 10:29 | CASEMGMT ---
Discharge Planning Updates sent to [place]. Rosette Leggett DC Planning Asst.
--- NOTE | 2025-01-18 11:16 | PCM.PROGNOTE ---
Subjective Subjective Patient seen and examined. Patient was quite lethargic and somnolent. He just mumbled in response to questions. Unable to do comprehensive review due to the lethargy. She is on 3L of oxygen by nasal canula. Objective Data Objective Data Vital Signs: Vital Signs Temp Pulse Resp BP Pulse Ox O2 Del Method O2 Flow Rate 97.1 F L 84 16 127/108 H 92 Nasal Cannula 3 01/18/25 07:00 01/18/25 10:00 01/18/25 10:00 01/18/25 10:00 01/18/25 10:00 01/18/25 10:00 01/18/25 10:00 FiO2 60 01/15/25 15:00 Oxygen Flow Rate (L/min) 3 Oxygen Delivery Method Nasal Cannula Weight: 325 lb 6.436 oz Body Mass Index (BMI) 61.4 Intake & Output: Intake and Output for Last 24 Hours 01/16/25 01/17/25 01/18/25 23:59 23:59 23:59 Intake Total 2157.28 / 2157.28 869 / 869 250 / 250 Output Total 525 / 525 325 / 325 175 / 175 Balance 1632.28 / 1632.28 544 / 544 75 / 75 Lab / Micro Data 01/18/25 04:45 01/18/25 04:45 Labs: Laboratory Results - last 24 hr 01/16/25 11:35: Crossmatch See Detail 01/17/25 23:05: [place] [address] H 01/18/25 04:45: WBC 6.7, RBC 2.52 L, Hgb 7.7 L, Hct 24.9 L, MCV 98.8, MCH 30.6, MCHC 30.9 L, RDW Std Deviation 68.8 H, RDW Coeff of Radha 19.7 H, Plt Count 62 L, MPV 9.9, Immature Gran % (Auto) 1.500 H, Neut % (Auto) 87.2 H, Lymph % (Auto) 4.2 L, [place] % (Auto) 7.0, Eos % (Auto) 0.0, Baso % (Auto) 0.1, Absolute Neuts (auto) 5.9, Absolute Lymphs (auto) 0.28 L, Nucleated RBC % 0.4, Differential Comment SCANNED, Platelet Estimate MKD DEC, Anisocytosis 2+, Sodium 143, Potassium 4.5, Chloride 115 H, Carbon Dioxide 17.3 L, Anion Gap 11, BUN 90 H, Creatinine 2.65 H, Estim Creat Clear Calc 28.53 L, Est GFR (MDRD) Non-Af 19 L, BUN/Creatinine Ratio 33.8 H, Glucose 185 H, Calcium 10.7, Total Bilirubin 1.94 H, AST 45 H, ALT 27, Alkaline Phosphatase 122 H, Total Protein 6.4, Albumin 3.2 L, Globulin 3.2, Albumin/Globulin Ratio 1.0 Micro: Microbiology 01/12/25 12:15 Blood Culture (Wb) - Right Hand Blood Culture - Final No growth in 5 days. 01/13/25 11:15 Sputum, Expectorated/Coughed Gram Stain - Final 01/13/25 11:15 Sputum, Expectorated/Coughed Respiratory Culture - Final Pseudomonas aeruginosa 01/12/25 07:53 Blood Culture (Wb) - Anticubital Right Blood Culture - Final No growth in 5 days. 01/12/25 09:48 Urine Catheter - South Urine Culture - Final Enterobacter cloacae complex Pseudomonas aeruginosa 01/12/25 09:48 Urine Catheter - South Legionella Antigen - Final 01/12/25 09:48 Urine Catheter - South Streptococcus pneumoniae Antigen (M - Final ABG Data ABG results: ABG 01/17/25 01/17/25 16:10 23:17 Specimen Type ART SAIGE Sample Site R Radial Not entered pH 7.24 L Bicarbonate Actual 19.5 L Total CO2 21 Base Excess -8 L O2 Saturation 89 L O2 % 3.5 6.0 ABG pCO2 45.8 H ABG pO2 66 L Jimenez Test Positive VBG pH 7.29 L VBG pO2 42 H VBG HCO3 22 VBG Total CO2 23 VBG O2 Sat (Calc) 71 H VBG Base Excess -5 L POC Mix VBG pCO2 Pt Tmp 45.3 O2 Delivery Device Cannula Cannula Vent Mode Not entered Radiography Diagnostic Testing: Radiology Impression Chest X-Ray 01/17/25 23:05 IMPRESSION: 1. Cardiomegaly with moderate vascular congestion 2. New right pleural effusion. 3. Increased bilateral airspace disease, likely edema and/or infection. Reading Location: [facility] Physical Exam Const Constitutional Narrative: lethargic, somnolent, just mumbles in response to questions. HEENT normocephalic, moist oral mucous membranes and oropharynx normal Eyes EOMs intact bilaterally Eyes Narrative: Legally blind Neck supple Lymph Lymphatic: no lymphedema noted Resp Resp Narrative: moderately diminished breath sounds bibasally, no wheezes or crackles. On 3L of oxygen by nasal canula Cardio regular rate, regular rhythm, S1 normal heart sound, S2 normal heart sound and no murmurs GI normal to inspection, nondistended, normoactive bowel sounds, soft to palpation and non-tender Extremity normal capillary refill and no clubbing, cyanosis or edema General Extremity: no tenderness to palpation of joints or extremities Skin General Skin Exam: no breakdown Neuro Neuro Narrative: lethargic, somnolent, minimally responsive Motor Exam: general weakness Assessment & Plan Assessment/Plan (1) Shock: PLAN: Plan #Multifactorial shock thought to be septic vs cardiogenic now off levophed drip Blood and sputum cultures as well as urine cultures pending on IV cefepime critical care on board Urine culture positive for Enterobacter and possible Pseudomonas on midodrine and IV hydrocortisone. To discontinue stress dose steroids tomorrow. Heading Repairer #JH Creatinine today is trended up slightly to 2.65. Kidney ultrasound showed normal right kidney and nonvisualized left kidney Baseline creatinine is 0.99. Lasix is on hold. Thought to be prerenal. Will consult nephrology. #Heart failure preserved ejection fraction: This is chronic. Being diuresed on account of stroke. #Anemia: Hemoglobin today is 7.7. She has been transfused with 2 unit of packed red blood cells during this admission. Was noted to have some postmenopausal vaginal bleeding. Pelvic ultrasound showed no acute pathology. To follow-up with gynecology on outpatient basis #Postmenopausal vaginal bleeding: Became anemic as above. Case was apparently discussed with FIRE PREVENTION ENGINEER who recommended possible pelvic MRI given suboptimal vaginal ultrasound. To follow-up with FIRE PREVENTION ENGINEER on outpatient basis. If the bleeding recurs will consult gynecology #Hyperbilirubinemia, Total bilirubin is trended down to 1.94 from 2.18 yesterday. More of a direct hyperbilirubinemia. Abdominal ultrasound showed possible cirrhosis of the liver. Will benefit from follow-up with gastroenterology on outpatient basis. Check hepatitis panel. #Class III obesity: BMI 61.5. Complicates acute care, expected recovery and prognosis. #History of dementia: On rivastigmine #A-fib: On amiodarone. Metoprolol held due to shock. DVT prophylaxis: SCDs Charges/Coding Visit Charges Inpatient E&M: 72573 Subs Hosp L2
--- NOTE | 2025-01-18 20:40 | PCM.HOSP.N ---
Hospitalist Note Pt is very drowsy, continues to have increased O2 needs while on right side. Reviewed labs and imaging from yesterday and today: BNP 98017, BUN 90, creat 2.65, hgb 7.7, platelets 62, pH 7.24, HCO3 19.5, O2 sat 89, CO2 45.8, pO2 66, CXR demonstrated new right pleural effusion and cardiomegaly with moderate vascular congestion, abdominal US performed for elevated bilirubin suggests probable cirrhosis of the liver. Ordered STAT ABG for increased O2 needs and somnolence, ammonia for somnolence with consideration of thrombocytopenia and US findings. Considering BiPAP as strike operations officer had mentioned continued avoidance of diuretics due to kidney injury, which may have been used for vascular congestion findings on CXR. 2154: ABG results demonstrate improvement in acidosis, pH up to 7.33, HCO3 19.9, O2 sat 91, pCO2 37.4, pO2 65. Ammonia 40.7. Stay current course without BiPAP, no bicarb d/t improving, somnolence not d/t hepatic encephalopathy.
[2025-01-18] MEDS: 0.9% Saline Lock 10 ML Syringe IV (20:46)
[2025-01-18 21:42] LABS: Allen Test Positive; Base Excess -6 mmol/L (-2 to +2); FI02 5.0; PO2 65 mmHG (75-100); SITE L Radial; SO2 91 % (95-99)
[2025-01-18 21:45] LABS: Ammonia 40.7 umol/L (11-51)
[2025-01-19] VITALS (28 sets, daily range): BP systolic 96–159; BP diastolic 45–86; PULSE 68–111; RESP 12–30; TEMP 36.3–36.9; O2SAT 94–97; BMI 61.2
[2025-01-19 03:27] LABS: Hematocrit 26.9 % (37-47); Hemoglobin 8.5 g/dL (12.0-15.0); Immature Granulocytes Count 0.100 X10^3/uL (0.0-0.0); Mean Corp Hgb Conc 31.6 g/dL (32-36); Mean Corpuscular Volume 98.5 fL (81-99); Mean Platelet Vol. 10.4 fl (6.2-12.0); NRBC Flagged by Analyzer 0.4 % (0-5); POSITIVE COUNT YES; POSITIVE DIFFERENTIAL YES; POSITIVE MORPHOLOGY YES; Platelet Count 71 K/mm3 (150-450); RBC Distribution Width CV 19.6 % (11.6-14.6); RBC Distribution Width SD 67.2 fl (35.1-43.9); Red Blood Count 2.73 M/mm3 (4.2-5.4); White Blood Count 9.1 K/mm3 (4.4-11.0)
[2025-01-19 03:54] LABS: AST(SGOT) 47 U/L (<=31); Alanine Aminotransfer ALT/SGPT 27 U/L (<=34); Albumin, Serum 3.2 g/dL (3.4-4.8); Alkaline Phosphatase 126 U/L (35-104); Anion Gap 12 (5-15); BUN 94 mg/dL (4-19); BUN/Creat Ratio 33.7 RATIO (10-20); Calcium,Total 11.0 mg/dL (7.6-11.0); Carbon Dioxide 16.6 mmol/L (21.0-32.0); Chloride 114 mmol/L (98-108); Estimated Creatinine Clearance 27.19 ml/min (50-250); Globulin 3.4 g/dL (2.2-4.2); Glucose 184 mg/dL (70-99); Potassium 4.5 mmol/L (3.3-5.1)
[2025-01-19 04:56] LABS: Differential Indicated SCAN CRITERIA MET
[2025-01-19] MEDS: 0.9% Saline Lock 10 ML Syringe IV ×2 (04:56→17:10)
[2025-01-19 04:58] LABS: Anisocytosis 1+; Differential Comment SCANNED; Polychromasia RARE
[2025-01-19] MEDS: Albuterol 2.5 MG/3 ML VIAL.NEB. INHALATION ×3 (07:18→19:30)
[2025-01-19] MEDS: Cefepime HCl 1 GM in 0.9% Normal Saline (50mL MB+) 50 ML IV (08:45)
[2025-01-19 09:15] LABS: Allen Test Positive; Base Excess -6 mmol/L (-2 to +2); FI02 2.0; PO2 64 mmHG (75-100); SITE R Brach; SO2 89 % (95-99)
--- NOTE | 2025-01-19 09:46 | PN.CC_ITS ---
Assessment & Plan Assessment/Plan (1) Shock: (2) Pneumonia: PLAN: Plan RECOMMENDATIONS: 1. Continue to wean supplemental oxygen to maintain saturations at or above 90%. 2. Initiate BiPAP therapy with naps and nightly. 3. Reattempt diuresis again today. 4. Discontinue stress dose steroids. 5. Continue antimicrobial therapy. 6. Continue to monitor H&H. Transfuse if hemoglobin drops below 7 g/dL. 7. If recurrent vaginal bleeding occurs, consultation will be placed to PLATER PR[employer]ED [employer] PANELS. IMPRESSIONS: 1. Multifactorial shock Likely related to underlying sepsis secondary to pseudomonal pneumonia coupled with hypovolemia in the setting of postmenopausal vaginal bleeding. The patient was ultimately fluid resuscitated and did receive transfusion of packed red blood cells. With supportive care, the patient was able to be weaned from vasopressor support and remains hemodynamically stable. Echocardiogram revealed normal intact systolic function. Recommend continuing antimicrobials to complete 7 days of therapy. The patient's stress dose steroids will be discontinued today. If she were to have recurrent vaginal bleeding, consultation will be placed to [employer] PAN[employer]S. Scheduled midodrine will be continued. 2. Acute kidney injury Most likely prerenal in etiology in the setting of #1. Renal ultrasound was unremarkable. Continue to monitor urine output. No current indication for renal replacement therapy. 3. Acute respiratory failure with hypoxemia and hypercapnia Clinical concern for hypervolemia that has developed over the course of the hospitalization coupled with alveolar hypoventilation due to morbid obesity and questionable sleep apnea. Accordingly, will initiate the patient on noninvasive positive pressure ventilatory support and continue to monitor ABGs accordingly. Will once again attempt gentle diuresis as tolerated by hemodynamics and renal function. 4. Postmenopausal vaginal bleeding Case was discussed briefly with PLATER PRINTED CIRCUIT BOARD PANELS, who recommended possible pelvic MRI, given suboptimal transvaginal ultrasound. Recommend outpatient follow-up with PLATER PR[employer] CIRCUIT BOARD PANELS after discharge if the patient remains clinically stable. If she were to develop recurrent vaginal bleeding, consultation can be placed while inpatient. 5. History of super morbid obesity/GERD/thrombocytopenia/hypertension/diabetes mellitus Complicates care, management, recovery and prognosis. Continue supportive measures as noted above. This note was generated with [email or web address] software. It may contain incorrect words, spelling, and punctuation that were not noted in checking the note before signing. Subjective Subjective The patient was seen and examined at the bedside this morning. Events from the last 24 hours have been reviewed. The patient is currently afebrile, hemodynamically stable and maintaining appropriate oxygen saturations on 4 L/min via nasal cannula. Nursing staff reported that the patient seemed more somnolent this morning. She is still alert and able to engage in conversation. Subsequent blood gas this morning was notable for a pH of 7.27 with a pCO2 of 46 and pO2 of 64. White blood cell count is normal. Hemoglobin is stable at 8.5 g/dL. Creatinine is stable at 2.78. Objective Data Objective Data The patient's most recent lab work, culture data and imaging studies have all been personally reviewed. Sputum culture was positive for Pseudomonas. Strep and urine Legionella antigens were negative. Vital Signs: Vital Signs Temp Pulse Resp BP Pulse Ox O2 Del Method O2 Flow Rate 97.4 F L 95 16 143/86 H 95 Nasal Cannula 2 01/19/25 08:27 01/19/25 08:27 01/19/25 08:27 01/19/25 08:27 01/19/25 08:27 01/19/25 08:27 01/19/25 08:27 FiO2 60 01/15/25 15:00 Oxygen Flow Rate (L/min) 2 Oxygen Delivery Method Nasal Cannula Weight: 324 lb 8.327 oz Body Mass Index (BMI) 61.2 Intake & Output: Intake and Output for Last 24 Hours 01/17/25 01/18/25 01/19/25 23:59 23:59 23:59 Intake Total 869 / 869 250 / 250 50 / 50 Output Total 325 / 325 475 / 650 325 / 325 Balance 544 / 544 -225 / -400 -275 / -275 Lab / Micro Data Attestation: I reviewed the patient's lab results. 01/19/25 03:16 01/19/25 03:16 Labs: Laboratory Results - last 24 hr 01/18/25 20:48: Ammonia 40.7 01/19/25 03:16: WBC 9.1, RBC 2.73 L, Hgb 8.5 L, Hct 26.9 L, MCV 98.5, MCH 31.1, MCHC 31.6 L, RDW Std Deviation 67.2 H, RDW Coeff of Radha 19.6 H, Plt Count 71 L, MPV 10.4, Immature Gran % (Auto) 1.100 H, Neut % (Auto) 88.0 H, Lymph % (Auto) 3.2 L, [place] % (Auto) 7.6, Eos % (Auto) 0.0, Baso % (Auto) 0.1, Absolute Neuts (auto) 8.0 H, Absolute Lymphs (auto) 0.29 L, Nucleated RBC % 0.4, Differential Comment SCANNED, Platelet Estimate SLT DEC, Plt Morphology Comment LARGE, Polychromasia RARE, Anisocytosis 1+, Sodium 143, Potassium 4.5, Chloride 114 H, Carbon Dioxide 16.6 L, Anion Gap 12, BUN 94 H, Creatinine 2.78 H, Estim Creat Clear Calc 27.19 L, Est GFR (MDRD) Non-Af 18 L, BUN/Creatinine Ratio 33.7 H, G lucose 184 H, Calcium 11.0, Total Bilirubin 1.90 H, AST 47 H, ALT 27, Alkaline Phosphatase 126 H, Total Protein 6.6, Albumin 3.2 L, Globulin 3.4, Albumin/Globulin Ratio 0.9 Micro: Microbiology 01/12/25 12:15 Blood Culture (Wb) - Right Hand Blood Culture - Final No growth in 5 days. 01/13/25 11:15 Sputum, Expectorated/Coughed Gram Stain - Final 01/13/25 11:15 Sputum, Expectorated/Coughed Respiratory Culture - Final Pseudomonas aeruginosa 01/12/25 07:53 Blood Culture (Wb) - Anticubital Right Blood Culture - Final No growth in 5 days. 01/12/25 09:48 Urine Catheter - South Urine Culture - Final Enterobacter cloacae complex Pseudomonas aeruginosa 01/12/25 09:48 Urine Catheter - South Legionella Antigen - Final 01/12/25 09:48 Urine Catheter - South Streptococcus pneumoniae Antigen (M - Final ABG Data ABG results: ABG 01/18/25 01/19/25 21:37 09:11 Specimen Type ART ART Sample Site L Radial R Brach pH 7.33 L 7.27 L Bicarbonate Actual 19.9 L 20.9 L Total CO2 21 22 Base Excess -6 L -6 L O2 Saturation 91 L 89 L O2 % 5.0 2.0 ABG pCO2 37.4 45.9 H ABG pO2 65 L 64 L Jimenez Test Positive Positive O2 Delivery Device Cannula Cannula Vent Mode Not entered Not entered Radiography Diagnostic Testing: Radiology Impression Abdomen Ultrasound 01/17/25 07:21 IMPRESSION: Probable cirrhosis of the liver. Cholecystectomy. Reading Location: [id number] Chest X-Ray 01/17/25 23:05 IMPRESSION: 1. Cardiomegaly with moderate vascular congestion 2. New right pleural effusion. 3. Increased bilateral airspace disease, likely edema and/or infection. Reading Location: [id number] Physical Exam Const alert and no apparent distress Constitutional Narrative: More somnolent than yesterday but still able to answer simple questions. Super morbidly obese. General Appearance: cooperative HEENT normocephalic, head/scalp atraumatic and moist oral mucous membranes Eyes PERRL, EOMs intact bilaterally and conjunctivae normal Neck supple General: trachea midline Chest inspection of chest normal Resp normal respiratory effort Auscultation: diminished lung sounds Cardio regular rate, regular rhythm, S1 normal heart sound and S2 normal heart sound GI normal to inspection, nondistended, normoactive bowel sounds Extremity Extremity Narrative: Wrapped lower extremities. General Extremity: Negative for clubbing or edema Neuro oriented x3, CN's II-XII intact bilaterally and no focal motor deficits Psych Mood & Affect: flat affect Charges/Coding Visit Charges Inpatient E&M: 46734 Subs Hosp L3
[2025-01-19 11:12] LABS: Allen Test Positive; Base Excess -5 mmol/L (-2 to +2); FI02 30.0; PO2 63 mmHG (75-100); RR 12; SITE R Brach; SO2 91 % (95-99)
--- NOTE | 2025-01-19 11:18 | PN_ITS ---
Subjective Subjective Patient seen and examined. She is more somnolent this morning and is on BIPAP. ABG done this morning showed pH of 7.34, total CO2 of 21.1 and pO2 of 63. Creatinine is 2.78. Unable to do review of systems due to somnolence and lethargy. Objective Data Objective Data Vital Signs: Vital Signs Temp Pulse Resp BP Pulse Ox O2 Del Method O2 Flow Rate 97.4 F L 96 24 H 143/86 H 95 Nasal Cannula 2 01/19/25 08:27 01/19/25 10:55 01/19/25 10:55 01/19/25 08:27 01/19/25 10:55 01/19/25 09:00 01/19/25 09:00 FiO2 25 01/19/25 10:55 Oxygen Flow Rate (L/min) 2 Oxygen Delivery Method Nasal Cannula Weight: 324 lb 8.327 oz Body Mass Index (BMI) 61.2 Intake & Output: Intake and Output for Last 24 Hours 01/17/25 01/18/25 01/19/25 23:59 23:59 23:59 Intake Total 869 / 869 250 / 250 50 / 50 Output Total 325 / 325 475 / 650 450 / 450 Balance 544 / 544 -225 / -400 -400 / -400 Lab / Micro Data 01/19/25 03:16 01/19/25 03:16 Labs: Laboratory Results - last 24 hr 01/18/25 20:48: Ammonia 40.7 01/19/25 03:16: WBC 9.1, RBC 2.73 L, Hgb 8.5 L, Hct 26.9 L, MCV 98.5, MCH 31.1, MCHC 31.6 L, RDW Std Deviation 67.2 H, RDW Coeff of Radha 19.6 H, Plt Count 71 L, MPV 10.4, Immature Gran % (Auto) 1.100 H, Neut % (Auto) 88.0 H, Lymph % (Auto) 3.2 L, [place] % (Auto) 7.6, Eos % (Auto) 0.0, Baso % (Auto) 0.1, Absolute Neuts (auto) 8.0 H, Absolute Lymphs (auto) 0.29 L, Nucleated RBC % 0.4, Differential Comment SCANNED, Platelet Estimate SLT DEC, Plt Morphology Comment LARGE, Polychromasia RARE, Anisocytosis 1+, Sodium 143, Potassium 4.5, Chloride 114 H, Carbon Dioxide 16.6 L, Anion Gap 12, BUN 94 H, Creatinine 2.78 H, Estim Creat Clear Calc 27.19 L, Est GFR (MDRD) Non-Af 18 L, BUN/Creatinine Ratio 33.7 H, G lucose 184 H, Calcium 11.0, Total Bilirubin 1.90 H, AST 47 H, ALT 27, Alkaline Phosphatase 126 H, Total Protein 6.6, Albumin 3.2 L, Globulin 3.4, Albumin/Globulin Ratio 0.9 Micro: Microbiology 01/12/25 12:15 Blood Culture (Wb) - Right Hand Blood Culture - Final No growth in 5 days. 01/13/25 11:15 Sputum, Expectorated/Coughed Gram Stain - Final 01/13/25 11:15 Sputum, Expectorated/Coughed Respiratory Culture - Final Pseudomonas aeruginosa 01/12/25 07:53 Blood Culture (Wb) - Anticubital Right Blood Culture - Final No growth in 5 days. 01/12/25 09:48 Urine Catheter - South Urine Culture - Final Enterobacter cloacae complex Pseudomonas aeruginosa 01/12/25 09:48 Urine Catheter - South Legionella Antigen - Final 01/12/25 09:48 Urine Catheter - South Streptococcus pneumoniae Antigen (M - Final ABG Data ABG results: ABG 01/18/25 01/19/25 01/19/25 21:37 09:11 11:07 Specimen Type ART ART ART Sample Site L Radial R Brach R Brach pH 7.33 L 7.27 L 7.34 L Bicarbonate Actual 19.9 L 20.9 L 21.1 L Total CO2 21 22 22 Base Excess -6 L -6 L -5 L O2 Saturation 91 L 89 L 91 L O2 % 5.0 2.0 30.0 ABG pCO2 37.4 45.9 H 39.4 ABG pO2 65 L 64 L 63 L Jimenez Test Positive Positive Positive Respiration Rate 12 O2 Delivery Device Cannula Cannula BiPAP Vent Mode Not entered Not entered BiLevel Physical Exam Const no apparent distress Constitutional Narrative: lethargic, somnolent, just mumbles in response to questions. HEENT normocephalic, head/scalp atraumatic and moist oral mucous membranes Eyes EOMs intact bilaterally Eyes Narrative: Legally blind Neck supple Lymph Lymphatic: no lymphadenopathy noted and no lymphedema noted Resp Resp Narrative: moderately diminished breath sounds bibasally, no wheezes or crackles. On BIPAP. Cardio regular rate, regular rhythm, S1 normal heart sound, S2 normal heart sound and no murmurs GI normal to inspection, nondistended, normoactive bowel sounds and soft to palpation GI Narrative: Ecchymosis on anterior abdomen. Obese abdomen Extremity normal to inspection, normal capillary refill and no clubbing, cyanosis or edema General Extremity: edema bilateral lower extremity Details: moderate and no tenderness to palpation of joints or extremities Skin General Skin Exam: no breakdown Neuro Neuro Narrative: lethargic, somnolent, minimally responsive. on BIPAP Motor Exam: general weakness Psych Psych Narrative: lethargic, frail, minimally responsive. on BIPAP Assessment & Plan Assessment/Plan (1) Shock: PLAN: Plan #Multifactorial shock * thought to be septic vs cardiogenic * off levophed drip. Remains very frail and lethargic. * Blood and sputum cultures as well as urine cultures pending * on IV cefepime * critical care on board * Urine culture positive for Enterobacter and possible Pseudomonas * on midodrine and IV hydrocortisone. To discontinue stress dose steroids tomorrow. Media Relations Associate * #Acute encephalopathy * Patient remains very somnolent and lethargic. She had ABG done yesterday which did not show any elevated CO2. ABG done today also does not show CO2 being elevated. * On BiPAP. pCO2 is 39.4. * #Acute hypoxic respiratory failure * Patient now requiring BiPAP. Being given a couple doses of Lasix today. * Critical care on board. Titrate oxygen to maintain saturation above 90%. * #JH * Creatinine today is up to 2.78. Kidney ultrasound showed normal right kidney and nonvisualized left kidney * Baseline creatinine is 0.99. * Lasix is on hold. Thought to be prerenal. consult nephrology today. * #Heart failure preserved ejection fraction: This is chronic. Being diuresed on account of stroke. #Anemia: * Hemoglobin today is 8.5 She has been transfused with 2 unit of packed red blood cells during this admission. * Was noted to have some postmenopausal vaginal bleeding. Pelvic ultrasound showed no acute pathology. * To follow-up with gynecology on outpatient basis * #Postmenopausal vaginal bleeding: * Became anemic as above. * Case was apparently discussed with ASSISTANT PROFESSOR OF MARINE BIOLOGY who recommended possible pelvic MRI given suboptimal vaginal ultrasound. To follow-up with ASSISTANT PROFESSOR OF MARINE BIOLOGY on outpatient basis. If the bleeding recurs will consult gynecology * #Hyperbilirubinemia, * Total bilirubin is trended down to 1.90 * More of a direct hyperbilirubinemia. Abdominal ultrasound showed possible cirrhosis of the liver. * Will benefit from follow-up with gastroenterology on outpatient basis. Check hepatitis panel. #Class III obesity: BMI 61.5. Complicates acute care, expected recovery and prognosis. #History of dementia: On rivastigmine #A-fib: On amiodarone. Metoprolol held due to shock. DVT prophylaxis: SCDs Charges/Coding Visit Charges Inpatient E&M: 50841 Subs Hosp L3
[2025-01-20] VITALS (17 sets, daily range): BP systolic 103–135; BP diastolic 44–71; PULSE 94–120; RESP 12–26; TEMP 36.5–37.1; O2SAT 93–97; BMI 60.4
[2025-01-20 05:43] LABS: Hematocrit 28.4 % (37-47); Hemoglobin 9.0 g/dL (12.0-15.0); Mean Corp Hgb Conc 31.7 g/dL (32-36); Mean Corpuscular Volume 97.9 fL (81-99); Platelet Count 57 K/mm3 (150-450); RBC Distribution Width CV 19.6 % (11.6-14.6); RBC Distribution Width SD 66.7 fl (35.1-43.9); Red Blood Count 2.90 M/mm3 (4.2-5.4); White Blood Count 10.7 K/mm3 (4.4-11.0)
[2025-01-20 05:44] LABS: Differential Indicated SCAN CRITERIA MET; Immature Granulocytes Count 0.080 X10^3/uL (0.0-0.0); Mean Platelet Vol. 10.5 fl (6.2-12.0)
[2025-01-20 05:46] LABS: AST(SGOT) 45 U/L (<=31); Alanine Aminotransfer ALT/SGPT 31 U/L (<=34); Albumin, Serum 3.0 g/dL (3.4-4.8); Alkaline Phosphatase 119 U/L (35-104); Anion Gap 12 (5-15); BUN 94 mg/dL (4-19); BUN/Creat Ratio 32.0 RATIO (10-20); Calcium,Total 10.6 mg/dL (7.6-11.0); Carbon Dioxide 17.5 mmol/L (21.0-32.0); Chloride 115 mmol/L (98-108); Differential Comment SCANNED; Estimated Creatinine Clearance 25.75 ml/min (50-250); Globulin 3.2 g/dL (2.2-4.2); Glucose 141 mg/dL (70-99); Potassium 4.3 mmol/L (3.3-5.1)
[2025-01-20] MEDS: Albuterol 2.5 MG/3 ML VIAL.NEB. INHALATION ×3 (06:53→19:30)
--- NOTE | 2025-01-20 07:56 | PN.CC_ITS ---
Assessment & Plan Assessment/Plan (1) Shock: (2) Pneumonia: PLAN: Plan RECOMMENDATIONS: 1. Continue to wean supplemental oxygen to maintain saturations at or above 90%. 2. Continue PAP therapy with naps and nightly. 3. Obtain nephrology consultation. 4. Continue antimicrobial therapy. 5. Continue to monitor H&H. Transfuse if hemoglobin drops below 7 g/dL. 6. If recurrent vaginal bleeding occurs, consultation will be placed to [facility]. IMPRESSIONS: 1. Multifactorial shock Likely related to underlying sepsis secondary to pseudomonal pneumonia coupled with hypovolemia in the setting of postmenopausal vaginal bleeding. The patient was ultimately fluid resuscitated and did receive transfusion of packed red blood cells. With supportive care, the patient was able to be weaned from vasopressor support and remains hemodynamically stable. Echocardiogram revealed normal intact systolic function. Recommend continuing antimicrobials to complete 7 days of therapy. If she were to have recurrent vaginal bleeding, consultation will be placed to [facility]. Scheduled midodrine will be continued. 2. Acute kidney injury Most likely prerenal in etiology in the setting of #1. Renal ultrasound was unremarkable. Continue to monitor urine output. No current indication for renal replacement therapy. In light of the patient's ongoing renal insufficiency and non-anion gap metabolic acidosis, will consult nephrology. 3. Acute respiratory failure with hypoxemia and hypercapnia Clinical concern for hypervolemia that has developed over the course of the hospitalization coupled with alveolar hypoventilation due to morbid obesity and questionable sleep apnea. Accordingly, will continue the patient on noninvasive positive pressure ventilatory support and continue to monitor ABGs accordingly. 4. Postmenopausal vaginal bleeding Case was discussed briefly with [facility], who recommended possible pelvic MRI, given suboptimal transvaginal ultrasound. Recommend outpatient follow-up with [facility] after discharge if the patient remains clinically stable. If she were to develop recurrent vaginal bleeding, consultation can be placed while inpatient. 5. History of super morbid obesity/GERD/thrombocytopenia/hypertension/diabetes mellitus Complicates care, management, recovery and prognosis. Continue supportive measures as noted above. This note was generated with [employer] software. It may contain incorrect words, spelling, and punctuation that were not noted in checking the note before signing. Subjective Subjective The patient was seen and examined at the bedside this morning. Events from the last 24 hours have been reviewed. The patient is currently afebrile, hemodynamically stable and maintaining appropriate oxygen saturations on 3 L/min via nasal cannula. The patient was again noted to have CO2 retention this morning, for which she was restarted on BiPAP therapy. She is documented to be overall net +12.3 L for the hospitalization. The patient did receive IV Lasix yesterday. Her creatinine this morning was noted to have increased to 2.93. The patient is not currently having any diarrhea. She currently has a nonanion gap metabolic acidosis. In light of her renal insufficiency, nephrology has been consulted. Objective Data Objective Data The patient's most recent lab work, culture data and imaging studies have all been personally reviewed. Sputum culture was positive for Pseudomonas. Strep and urine Legionella antigens were negative. Vital Signs: Vital Signs Temp Pulse Resp BP Pulse Ox O2 Del Method O2 Flow Rate 98.7 F 120 H 26 H 120/58 L 94 Nasal Cannula 3 01/20/25 05:55 01/20/25 06:55 01/20/25 06:55 01/20/25 05:55 01/20/25 05:55 01/20/25 06:55 01/20/25 06:55 FiO2 25 01/19/25 15:20 Oxygen Flow Rate (L/min) 3 Oxygen Delivery Method Nasal Cannula Weight: 320 lb 1.779 oz Body Mass Index (BMI) 60.4 Intake & Output: Intake and Output for Last 24 Hours 01/18/25 01/19/25 01/20/25 23:59 23:59 23:59 Intake Total 250 / 250 50 / 50 Output Total 475 / 650 525 / 525 200 / 200 Balance -225 / -400 -475 / -475 -200 / -200 Lab / Micro Data Attestation: I reviewed the patient's lab results. 01/20/25 04:23 01/20/25 04:23 Labs: Laboratory Results - last 24 hr 01/20/25 04:23: WBC 10.7, RBC 2.90 L, Hgb 9.0 L, Hct 28.4 L, MCV 97.9, MCH 31.0, MCHC 31.7 L, RDW Std Deviation 66.7 H, RDW Coeff of Radha 19.6 H, Plt Count 57 L, MPV 10.5, Immature Gran % (Auto) 0.800, Neut % (Auto) 87.5 H, Lymph % (Auto) 3.2 L, [place] % (Auto) 8.3, Eos % (Auto) 0.0, Baso % (Auto) 0.2, Absolute Neuts (auto) Not Reportable, Differential Comment SCANNED, Platelet Estimate MKD DEC, Sodium 145, Potassium 4.3, Chloride 115 H, Carbon Dioxide 17.5 L, Anion Gap 12, BUN 94 H, Creatinine 2.93 H, Estim Creat Clear Calc 25.75 L, Est GFR (MDRD) Non-Af 17 L , BUN/Creatinine Ratio 32.0 H, Glucose 141 H, Calcium 10.6, Total Bilirubin 1.87 H, AST 45 H, ALT 31, Alkaline Phosphatase 119 H, Total Protein 6.2, Albumin 3.0 L, Globulin 3.2, Albumin/Globulin Ratio 0.9 Micro: Microbiology 01/12/25 12:15 Blood Culture (Wb) - Right Hand Blood Culture - Final No growth in 5 days. 01/13/25 11:15 Sputum, Expectorated/Coughed Gram Stain - Final 01/13/25 11:15 Sputum, Expectorated/Coughed Respiratory Culture - Final Pseudomonas aeruginosa 01/12/25 07:53 Blood Culture (Wb) - Anticubital Right Blood Culture - Final No growth in 5 days. 01/12/25 09:48 Urine Catheter - South Urine Culture - Final Enterobacter cloacae complex Pseudomonas aeruginosa 01/12/25 09:48 Urine Catheter - South Legionella Antigen - Final 01/12/25 09:48 Urine Catheter - South Streptococcus pneumoniae Antigen (M - Final ABG Data ABG results: ABG 01/19/25 01/19/25 09:11 11:07 Specimen Type ART ART Sample Site R Brach R Brach pH 7.27 L 7.34 L Bicarbonate Actual 20.9 L 21.1 L Total CO2 22 22 Base Excess -6 L -5 L O2 Saturation 89 L 91 L O2 % 2.0 30.0 ABG pCO2 45.9 H 39.4 ABG pO2 64 L 63 L Jimenez Test Positive Positive Respiration Rate 12 O2 Delivery Device Cannula BiPAP Vent Mode Not entered BiLevel Radiography Diagnostic Testing: Radiology Impression Abdomen Ultrasound 01/17/25 07:21 IMPRESSION: Probable cirrhosis of the liver. Cholecystectomy. Reading Location: [id number] Chest X-Ray 01/17/25 23:05 IMPRESSION: 1. Cardiomegaly with moderate vascular congestion 2. New right pleural effusion. 3. Increased bilateral airspace disease, likely edema and/or infection. Reading Location: [facility] Physical Exam Const alert and no apparent distress Constitutional Narrative: Super morbidly obese. General Appearance: cooperative and lethargic HEENT normocephalic, head/scalp atraumatic and moist oral mucous membranes Eyes PERRL, EOMs intact bilaterally and conjunctivae normal Neck supple General: trachea midline Chest inspection of chest normal Resp normal respiratory effort Auscultation: diminished lung sounds Cardio regular rate, regular rhythm, S1 normal heart sound and S2 normal heart sound GI normal to inspection, nondistended, normoactive bowel sounds Extremity Extremity Narrative: Wrapped lower extremities. General Extremity: Negative for clubbing or edema Neuro oriented x3, CN's II-XII intact bilaterally and no focal motor deficits Psych Mood & Affect: flat affect Charges/Coding Visit Charges Inpatient E&M: 28176 Subs Hosp L3
[2025-01-20 08:01] LABS: Allen Test Positive; Base Excess -7 mmol/L (-2 to +2); FI02 3.0; PO2 75 mmHG (75-100); SITE L Radial; SO2 92 % (95-99)
[2025-01-20 08:42] LABS: Ammonia 51.6 umol/L (11-51)
[2025-01-20 08:43] LABS: Mucous, Urine 0 SEEN /hpf (<or=2+); Red Blood Cells-Urine 0 SEEN /hpf (0-5)
[2025-01-20 08:54] LABS: Color, Urine Yellow (Yellow); Glucose, Dipstick Normal (Normal); Ketone-Dipstick Negative (Negative); Leukocyte Esterase-Dipstick 500 /ul (Negative); Nitrite-Dipstick Negative (Negative); Occult Blood-Urine 50 /ul (Negative); Protein-Dipstick 30 mg/dl (Negative); Specific Gravity, Urine 1.020 (1.002-1.030); Urine Bilirubin Dipstick Negative (Negative)
[2025-01-20 09:00] LABS: Squamous Epithelial Cells - UA 10-25 SEEN /hpf (5-10)
[2025-01-20 09:01] LABS: Yeast-Urine 3+ /hpf (None Seen)
[2025-01-20] MEDS: Cefepime HCl 1 GM in 0.9% Normal Saline (50mL MB+) 50 ML IV (09:56)
[2025-01-20] MEDS: 0.9% Saline Lock 10 ML Syringe IV ×2 (09:57→11:38)
--- NOTE | 2025-01-20 10:21 | PCM.CONS.R ---
Assessment & Plan Assessment/Plan (1) JH (acute kidney injury): (2) Metabolic acidosis: PLAN: Plan This is a 69-year-old female with past medical history significant for A-fib, hypertension, super morbid obesity, type 2 diabetes mellitus who was admitted to the hospital on January 11 as she was sent from [facility] for shortness of breath and abnormal lab work. Patient also was noted to have postmenopausal vaginal bleeding. She was admitted for pneumonia, fluid overload, hospital course complicated by shock felt to be secondary to pneumonia and vaginal bleeding patient was then transferred to ICU. Nephrology consulted in view of elevated creatinine and non anion gap metabolic acidosis. Serum bicarb during this hospitalization ranging around 16-18. ABG this am pH 7.22, O2 sat 92, pO2 75, total CO2 22, HCO3 20.5, pCO2 50.2. Because of CO2 retention patient is back on BiPAP. Reviewing chart patient is net positive at least 12 L this hospitalization. Per nursing staff patient is not having any diarrhea, last bowel movement few days ago. On exam patient is hypervolemic. Last chest x-ray: cardiomegaly with moderate vascular congestion, increased bilateral airspace disease likely edema, right pleural effusion. Patient has South, she received Lasix yesterday with the output around 500 mL. For today we will give 2 A bicarb IV, dose of metolazone before Lasix followed by Lasix 80 mg IV x 1 and monitor for urine output response. Blood pressures acceptable on midodrine. Baseline serum creatinine unknown, serum creatinine on 12/09/2024 0.99. On admission creatinine 3.19, improved to 2.22 on 01/15 and today creatinine 2.93. Potassium normal. Renal ultrasound did not show any hydronephrosis. No acute indication for renal placement therapy. We will continue to follow patient along with you. Further orders forthcoming as hospitalization evolves, thank you for allowing us to participate in the care of Ms. Robbins. Assessment and plan reviewed with Dr. Balbuena HPI Consult Data Date of Consult: 01/20/25 HPI Narrative HPI Narrative: KIMBERLY ROBBINS, is a 69 F who was admitted to the hospital on January 11 after presenting to the ER from [place] with complaints of shortness of breath and abnormal lab work. Patient was initially admitted to PCU for pneumonia, acute kidney injury, acute anemia, abdominal ascites and CHF. Hospital course complicated by shock related to pneumonia as well as postmenopausal vaginal bleeding and patient was transferred to ICU. Nephrology consulted in view of elevated creatinine and metabolic acidosis. Per nursing staff patient is alert and oriented however currently she is on BiPAP, she is sleepy but arousable. Information gathered from the chart. It is unknown if patient has been following with nephrology. Serum creatinine was 3.19 and on admission, creatinine 2.93 currently. Serum bicarb 16.3 on admission and is currently 17.5. Patient has been on nasal cannula but noted to have CO2 retention this morning and is on BiPAP. FORMERLY [facility], [facility] Medical History (Updated 01/20/25 @ 10:34 by LEW King) Normochromic normocytic anemia Paroxysmal atrial fibrillation Essential (primary) hypertension Difficulty balancing when standing Excessive weight loss Late effect of medical and surgical care complication Abdominal wall pain in both lower quadrants Edema of abdominal wall Intertrigo Panniculitis Rupture of hernia Neuropathy Kidney failure Breast lump in female History of blood transfusion UTI (urinary tract infection) Back problem Arthritis Panniculitis Pressure sore of left ischium, unstageable Right ischial pressure sore, stage 2 Pressure ulcer Osteoarthritis Depression Umbilical hernia Anemia Thrombocytopenia Atrial fibrillation with rapid ventricular response (12/2017) Abdominal panniculus Hyperlipidemia Morbid obesity Type 2 diabetes mellitus Home Medications ?Medication ?Instructions ?Recorded ?Last Taken ?Type alpha lipoic acid 300 mg capsule 600 mg PO DAILY neuropathy 09/21/19 01/11/25 History metoprolol tartrate 50 mg tablet 50 mg PO BID #60 tabs 09/23/19 01/11/25 Rx acetaminophen 500 mg capsule 1,000 mg PO Q8H PRN pain 12/09/24 11/16/24 History amiodarone 200 mg tablet 200 mg PO DAILY Irregular Heart 12/09/24 01/11/25 History rate ferrous sulfate 325 mg (65 mg 325 mg PO DAILY Iron Supplement 12/09/24 01/11/25 History iron) tablet (FeroSul) magnesium hydroxide 400 mg/5 mL 30 ml PO DAILY PRN constipation 12/09/24 12/07/24 History oral suspension (Milk of Magnesia) mirabegron 25 mg tablet,extended 25 mg PO DAILY Overactive Bladder 12/09/24 01/11/25 History release 24 hr (Myrbetriq) polyethylene glycol 3350 17 17 g PO DAILY Laxitve 12/09/24 01/11/25 History gram/dose oral powder (Gavilax) sennosides 8.6 mg-docusate sodium 2 tab-cap PO QHS Stool Softener 12/09/24 01/10/25 History 50 mg tablet (Senna with Docusate Sodium) sitagliptin phosphate 100 mg 100 mg PO DAILY Diabetes 12/09/24 01/11/25 History tablet (Januvia) folic acid-vit B6-vit B12 0.8 1 tab PO DAILY Supplement 01/11/25 01/11/25 History mg-10 mg-115 mcg tablet (Foltabs 800) mirtazapine 15 mg tablet 15 mg PO QHS Antidepressant 01/11/25 01/11/25 History rivastigmine 13.3 mg/24 hour 1 patch topical DAILY Dementia 01/11/25 01/11/25 History transdermal patch Allergy/AdvReac Type Severity Reaction Status Date / Time amoxicillin AdvReac Other Verified 01/12/25 01:07 latex AdvReac Other Verified 01/12/25 01:07 Family History Father Diabetes Mother Arthritis Hypertension Heart disease Sister Arthritis Diabetes Heart disease Hypertension High cholesterol Surgical History History of herniorrhaphy Hx of cholecystectomy Bilateral ischial wound debridement Social History housing: custodial Smoking Status: Never smoker alcohol intake: never substance use type: does not use ROS ROS Narrative Unable to obtain Physical Exam Narrative no apparent distress S1, S2, RRR Diminished breath sounds. On BiPAP Abdomen rounded, edema noted lower abdominal wall Pitting edema bilateral legs and thighs Indwelling South clear yellow urine in bag Lab / Micro Data 01/20/25 04:23 01/20/25 04:23 Labs: Laboratory Results - last 24 hr 01/20/25 04:23: WBC 10.7, RBC 2.90 L, Hgb 9.0 L, Hct 28.4 L, MCV 97.9, MCH 31.0, MCHC 31.7 L, RDW Std Deviation 66.7 H, RDW Coeff of Radha 19.6 H, Plt Count 57 L, MPV 10.5, Immature Gran % (Auto) 0.800, Neut % (Auto) 87.5 H, Lymph % (Auto) 3.2 L, [place] % (Auto) 8.3, Eos % (Auto) 0.0, Baso % (Auto) 0.2, Absolute Neuts (auto) Not Reportable, Differential Comment SCANNED, Platelet Estimate MKD DEC, Sodium 145, Potassium 4.3, Chloride 115 H, Carbon Dioxide 17.5 L, Anion Gap 12, BUN 94 H, Creatinine 2.93 H, Estim Creat Clear Calc 25.75 L, Est GFR (MDRD) Non-Af 17 L, BUN/Creatinine Ratio 32.0 H, Glucose 141 H, Calcium 10.6, Total Bilirubin 1.87 H, AST 45 H, ALT 31, Alkaline Phosphatase 119 H, Total Protein 6.2, Albumin 3.0 L, Globulin 3.2, Albumin/Globulin Ratio 0.9 01/20/25 08:05: Ammonia 51.6 H, TSH 0.060 L 01/20/25 08:35: Urine Color Yellow, Urine Clarity Cloudy, Urine pH 6.0, Ur Specific [place] 1.020, Urine Protein 30 H, Urine Glucose (UA) Normal, Urine Ketones Negative, Urine Occult Blood 50 H, Urine Nitrite Negative, Urine Bilirubin Negative, Urine Urobilinogen Normal, Ur Leukocyte Esterase 500 H, Urine RBC 0 SEEN, Urine WBC 10-25 SEEN, Ur Squamous Epith Cells 10-25 SEEN, Urine Bacteria 0 SEEN, Urine Mucus 0 SEEN, Urine Yeast 3+ ABG Data ABG results: ABG 01/19/25 01/20/25 11:07 07:58 Specimen Type ART ART Sample Site R Brach L Radial pH 7.34 L 7.22 L Bicarbonate Actual 21.1 L 20.5 L Total CO2 22 22 Base Excess -5 L -7 L O2 Saturation 91 L 92 L O2 % 30.0 3.0 ABG pCO2 39.4 50.2 H ABG pO2 63 L 75 Jimenez Test Positive Positive Respiration Rate 12 O2 Delivery Device BiPAP Cannula Vent Mode BiLevel Not entered
--- NOTE | 2025-01-20 11:32 | WOUNDNOTE ---
wound photo: sacrum/buttocks
[2025-01-20] MEDS: Sodium Bicarbonate 8.4% 50 ML Syringe 50 MEQ IV ×2 (11:38)
--- NOTE | 2025-01-20 13:37 | PN_ITS ---
Subjective Subjective Patient seen and examined. She remains very lethargic and was put on BiPAP today. She remains with lethargic. Unable to do review of systems due to her lethargy Objective Data Objective Data Vital Signs: Vital Signs Temp Pulse Resp BP Pulse Ox O2 Del Method O2 Flow Rate 97.9 F 101 H 18 126/70 H 95 Bi-pap 3 01/20/25 12:00 01/20/25 13:18 01/20/25 13:18 01/20/25 12:00 01/20/25 12:00 01/20/25 12:00 01/20/25 08:00 FiO2 25 01/20/25 12:00 Oxygen Flow Rate (L/min) 3 Oxygen Delivery Method Bi-pap Weight: 320 lb 1.779 oz Body Mass Index (BMI) 60.4 Intake & Output: Intake and Output for Last 24 Hours 01/18/25 01/19/25 01/20/25 23:59 23:59 23:59 Intake Total 250 / 250 50 / 50 50 / 50 Output Total 475 / 650 525 / 525 275 / 275 Balance -225 / -400 -475 / -475 -225 / -225 Lab / Micro Data 01/20/25 04:23 01/20/25 04:23 Labs: Laboratory Results - last 24 hr 01/20/25 04:23: WBC 10.7, RBC 2.90 L, Hgb 9.0 L, Hct 28.4 L, MCV 97.9, MCH 31.0, MCHC 31.7 L, RDW Std Deviation 66.7 H, RDW Coeff of Radha 19.6 H, Plt Count 57 L, MPV 10.5, Immature Gran % (Auto) 0.800, Neut % (Auto) 87.5 H, Lymph % (Auto) 3.2 L, [place] % (Auto) 8.3, Eos % (Auto) 0.0, Baso % (Auto) 0.2, Absolute Neuts (auto) Not Reportable, Differential Comment SCANNED, Platelet Estimate MKD DEC, Sodium 145, Potassium 4.3, Chloride 115 H, Carbon Dioxide 17.5 L, Anion Gap 12, BUN 94 H, Creatinine 2.93 H, Estim Creat Clear Calc 25.75 L, Est GFR (MDRD) Non-Af 17 L , BUN/Creatinine Ratio 32.0 H, Glucose 141 H, Calcium 10.6, Total Bilirubin 1.87 H, AST 45 H, ALT 31, Alkaline Phosphatase 119 H, Total Protein 6.2, Albumin 3.0 L, Globulin 3.2, Albumin/Globulin Ratio 0.9 01/20/25 08:05: Ammonia 51.6 H, TSH 0.060 L 01/20/25 08:35: Urine Color Yellow, Urine Clarity Cloudy, Urine pH 6.0, Ur Specific [place] 1.020, Urine Protein 30 H, Urine Glucose (UA) Normal, Urine Ketones Negative, Urine Occult Blood 50 H, Urine Nitrite Negative, Urine Bilirubin Negative, Urine Urobilinogen Normal, Ur Leukocyte Esterase 500 H, Urine RBC 0 SEEN, Urine WBC 10-25 SEEN, Ur Squamous Epith Cells 10-25 SEEN, Urine Bacteria 0 SEEN, Urine Mucus 0 SEEN, Urine Yeast 3+ Micro: Microbiology 01/12/25 12:15 Blood Culture (Wb) - Right Hand Blood Culture - Final No growth in 5 days. 01/13/25 11:15 Sputum, Expectorated/Coughed Gram Stain - Final 01/13/25 11:15 Sputum, Expectorated/Coughed Respiratory Culture - Final Pseudomonas aeruginosa 01/12/25 07:53 Blood Culture (Wb) - Anticubital Right Blood Culture - Final No growth in 5 days. 01/12/25 09:48 Urine Catheter - South Urine Culture - Final Enterobacter cloacae complex Pseudomonas aeruginosa 01/12/25 09:48 Urine Catheter - South Legionella Antigen - Final 01/12/25 09:48 Urine Catheter - South Streptococcus pneumoniae Antigen (M - Final ABG Data ABG results: ABG 01/20/25 07:58 Specimen Type ART Sample Site L Radial pH 7.22 L Bicarbonate Actual 20.5 L Total CO2 22 Base Excess -7 L O2 Saturation 92 L O2 % 3.0 ABG pCO2 50.2 H ABG pO2 75 Jimenez Test Positive O2 Delivery Device Cannula Vent Mode Not entered Physical Exam Const Constitutional Narrative: lethargic, somnolent, HEENT normocephalic, head/scalp atraumatic and moist oral mucous membranes Eyes EOMs intact bilaterally Eyes Narrative: Legally blind Neck supple Lymph Lymphatic: no lymphedema noted Resp Resp Narrative: moderately diminished breath sounds bibasally, no wheezes or crackles. On BIPAP. Cardio regular rate, regular rhythm, S1 normal heart sound, S2 normal heart sound and no murmurs GI normal to inspection, nondistended, normoactive bowel sounds, soft to palpation and non-tender GI Narrative: Ecchymosis on anterior abdomen. Obese abdomen Inspection: abdominal distention Extremity normal to inspection, normal capillary refill and no clubbing, cyanosis or edema General Extremity: no tenderness to palpation of joints or extremities Skin General Skin Exam: no breakdown Neuro Neuro Narrative: lethargic, somnolent, minimally responsive. on BIPAP Sensorium / Orientation: awake Psych Psych Narrative: lethargic, frail, minimally responsive. on BIPAP Assessment & Plan Assessment/Plan (1) Shock: PLAN: Plan #Multifactorial shock * thought to be septic vs cardiogenic * off levophed drip. Remains very frail and lethargic. * Blood and sputum cultures as well as urine cultures pending * on IV cefepime * critical care on board * Urine culture positive for Enterobacter and possible Pseudomonas * on midodrine and IV hydrocortisone. * #Acute encephalopathy * Patient remains very somnolent and lethargic. ABG done this morning showed retention of CO2 with pH of 7.32, bicarb 20.5 and pCO2 of 50.2. pO2 was 75. * now on BIPAP again. * On BiPAP. pCO2 is 39.4. * Ammonia level slightly elevated at 51.6 with upper limit of 51. On lactulose. * #Acute hypoxic and hypercapnic respiratory failure * Patient now requiring BiPAP. Being given a couple doses of Lasix today. * Critical care on board. Titrate oxygen to maintain saturation above 90%. * ABG as above showing retention of CO2. Now on BiPAP. Critical care on board. * #JH * Creatinine today is up to 2.93. Kidney ultrasound showed normal right kidney and nonvisualized left kidney * Baseline creatinine is 0.99. * Lasix is on hold. Thought to be prerenal. c nephrology consulted today due to worsening kidney function * #Heart failure preserved ejection fraction: This is chronic. Being diuresed on account of stroke. #Anemia: * Hemoglobin today is 9.0 She has been transfused with 2 unit of packed red blood cells during this admission. * Was noted to have some postmenopausal vaginal bleeding. Pelvic ultrasound showed no acute pathology. * To follow-up with gynecology on outpatient basis * #Postmenopausal vaginal bleeding: * Became anemic as above. * Case was apparently discussed with DRAGLINE ENGINEER who recommended possible pelvic MRI given suboptimal vaginal ultrasound. * To follow-up with DRAGLINE ENGINEER on outpatient basis. If the bleeding recurs will consult gynecology * #Hyperbilirubinemia, * Total bilirubin is trended down to 1.87 today * More of a direct hyperbilirubinemia. Abdominal ultrasound showed possible cirrhosis of the liver. * Will benefit from follow-up with gastroenterology on outpatient basis. Check hepatitis panel. #Class III obesity: BMI 61.5. Complicates acute care, expected recovery and prognosis. #History of dementia: On rivastigmine #A-fib: On amiodarone. Metoprolol held due to shock. DVT prophylaxis: SCDs Charges/Coding Visit Charges Inpatient E&M: 76917 Subs Hosp L3
[2025-01-21] VITALS (28 sets, daily range): BP systolic 81–134; BP diastolic 33–68; PULSE 90–134; RESP 12–25; TEMP 36.1–36.3; O2SAT 89–99; BMI 61.4
[2025-01-21 05:47] LABS: Hematocrit 31.1 % (37-47); Hemoglobin 9.6 g/dL (12.0-15.0); Immature Granulocytes Count 0.110 X10^3/uL (0.0-0.0); Mean Corp Hgb Conc 30.9 g/dL (32-36); Mean Corpuscular Volume 98.1 fL (81-99); Mean Platelet Vol. 11.2 fl (6.2-12.0); NRBC Flagged by Analyzer 0.3 % (0-5); POSITIVE COUNT YES; POSITIVE DIFFERENTIAL YES; POSITIVE MORPHOLOGY YES; Platelet Count 62 K/mm3 (150-450); RBC Distribution Width CV 19.9 % (11.6-14.6); RBC Distribution Width SD 66.2 fl (35.1-43.9); Red Blood Count 3.17 M/mm3 (4.2-5.4); White Blood Count 12.8 K/mm3 (4.4-11.0)
[2025-01-21 05:51] LABS: Differential Indicated SCAN CRITERIA MET
[2025-01-21 06:12] LABS: AST(SGOT) 55 U/L (<=31); Alanine Aminotransfer ALT/SGPT 27 U/L (<=34); Albumin, Serum 2.7 g/dL (3.4-4.8); Alkaline Phosphatase 121 U/L (35-104); Anion Gap 13 (5-15); BUN 97 mg/dL (4-19); BUN/Creat Ratio 33.3 RATIO (10-20); Calcium,Total 10.4 mg/dL (7.6-11.0); Carbon Dioxide 18.3 mmol/L (21.0-32.0); Chloride 116 mmol/L (98-108); Estimated Creatinine Clearance 25.89 ml/min (50-250); Globulin 3.4 g/dL (2.2-4.2); Glucose 122 mg/dL (70-99); Potassium 3.8 mmol/L (3.3-5.1)
[2025-01-21 06:37] LABS: Acanthocytes RARE; Anisocytosis 2+; Differential Comment SCANNED; Schistocytes RARE
[2025-01-21] MEDS: Albuterol 2.5 MG/3 ML VIAL.NEB. INHALATION ×3 (07:28→19:46)
--- NOTE | 2025-01-21 07:37 | EKG12_ITS ---
Test Reason : A FIB Blood Pressure : */* mmHG Vent. Rate : 132 BPM Atrial Rate : * BPM P-R Int : * ms QRS Dur : 116 ms QT Int : 368 ms P-R-T Axes : * -51 127 degrees QTcB Int : 545 ms Atrial fibrillation with rapid ventricular response Left axis deviation Septal infarct Possible Lateral infarct Abnormal ECG When compared with ECG of 23-Sep-2019 09:26, Significant changes have occurred Confirmed by CIRILO FAGAN, DENISHA ([id number]), makeup editor JOSE RAUL CLARK ([id number]) on 01/22/2025 2:19:56 PM Referred By: FOREIGN Confirmed By: DENISHA KERR MD
--- NOTE | 2025-01-21 08:55 | CASEMGMT ---
Discharge Planning Updates sent to [facility]. RADHA (Marcela) was updated via phone on 01/20 that pt would likely be here through the week. Rosette Leggett DC Planning Asst.
[2025-01-21 09:31] LABS: Ammonia 65.0 umol/L (11-51)
[2025-01-21] MEDS: Amiodarone 150 MG in Dextrose 5%-Water (100mL Bag) 100 ML 600 MG IV BOLUS (09:34)
--- NOTE | 2025-01-21 09:45 | PN.RENAL_ITS ---
Subjective Subjective Resting quietly, no overnight events. Patient alert this am but not following commands. Not taking anything by mouth. Objective Data Objective Data Vital Signs: Vital Signs Temp Pulse Resp BP Pulse Ox O2 Del Method O2 Flow Rate 97 F L 134 H 16 108/52 L 94 Nasal Cannula 4 01/21/25 04:00 01/21/25 09:34 01/21/25 07:28 01/21/25 09:34 01/21/25 07:28 01/21/25 07:28 01/21/25 07:28 FiO2 25 01/21/25 00:15 Oxygen Flow Rate (L/min) 4 Oxygen Delivery Method Nasal Cannula Weight: 147.6 kg Body Mass Index (BMI) 61.4 Intake & Output: Intake and Output for Last 24 Hours 01/19/25 01/20/25 01/21/25 23:59 23:59 23:59 Intake Total 50 / 50 50 / 50 0 / 0 Output Total 525 / 525 825 / 825 200 / 200 Balance -475 / -475 -775 / -775 -200 / -200 Lab / Micro Data 01/21/25 04:40 01/21/25 04:40 Labs: Laboratory Results - last 24 hr 01/20/25 15:42: POC Glucose 131 H 01/21/25 04:40: WBC 12.8 H, RBC 3.17 L, Hgb 9.6 L, Hct 31.1 L, MCV 98.1, MCH 30.3, MCHC 30.9 L, RDW Std Deviation 66.2 H, RDW Coeff of Radha 19.9 H, Plt Count 62 L, MPV 11.2, Immature Gran % (Auto) 0.900, Neut % (Auto) 88.0 H, Lymph % (Auto) 3.2 L, [place] % (Auto) 7.7, Eos % (Auto) 0.0, Baso % (Auto) 0.2, Absolute Neuts (auto) 11.3 H, Absolute Lymphs (auto) 0.41 L, Nucleated RBC % 0.3, Differential Comment SCANNED, Platelet Estimate MOD DEC, Anisocytosis 2+, Ovalocytes 1+, Acanthocytes (Spur) RARE, Schistocytes RARE, Sodium 147 H, Potassium 3.8, Chloride 116 H, Carbon Dioxide 18.3 L, Anion Gap 13, BUN 97 H, C reatinine 2.92 H, Estim Creat Clear Calc 25.89 L, Est GFR (MDRD) Non-Af 17 L, B UN/Creatinine Ratio 33.3 H, Glucose 122 H, Calcium 10.4, Total Bilirubin 2.03 H, AST 55 H, ALT 27, Alkaline Phosphatase 121 H, Total Protein 6.1, Albumin 2.7 L, Globulin 3.4, Albumin/Globulin Ratio 0.8 L, Free T4 1.80 H 01/21/25 08:29: Ammonia 65.0 H Micro: Microbiology 01/12/25 12:15 Blood Culture (Wb) - Right Hand Blood Culture - Final No growth in 5 days. 01/13/25 11:15 Sputum, Expectorated/Coughed Gram Stain - Final 01/13/25 11:15 Sputum, Expectorated/Coughed Respiratory Culture - Final Pseudomonas aeruginosa 01/12/25 07:53 Blood Culture (Wb) - Anticubital Right Blood Culture - Final No growth in 5 days. 01/12/25 09:48 Urine Catheter - South Urine Culture - Final Enterobacter cloacae complex Pseudomonas aeruginosa 01/12/25 09:48 Urine Catheter - South Legionella Antigen - Final 01/12/25 09:48 Urine Catheter - South Streptococcus pneumoniae Antigen (M - Final Physical Exam Narrative opens eyes to name, no apparent distress, does not follow commands S1, S2, RRR Diminished breath sounds. On O2 nasal cannulat Abdomen rounded, edema noted across lower abdominal wall Pitting edema bilateral legs and thighs Indwelling South clear yellow urine in bag Assessment & Plan Assessment/Plan (1) JH (acute kidney injury): (2) Metabolic acidosis: PLAN: Plan This is a 69-year-old female with past medical history significant for A-fib, hypertension, super morbid obesity, type 2 diabetes mellitus who was admitted to the hospital on January 11 as she was sent from [facility] for shortness of breath and abnormal lab work. Patient also was noted to have postmenopausal vaginal bleeding. She was admitted for pneumonia, fluid overload, hospital course complicated by shock felt to be secondary to pneumonia and vaginal bleeding patient was then transferred to ICU. Nephrology consulted in view of elevated creatinine and non anion gap metabolic acidosis. Patient received 2 amps bicarb yesterday, serum bicarb 18.3 today. Now on O2 nasal canula. Last chest x-ray: cardiomegaly with moderate vascular congestion, increased bilateral airspace disease likely edema, right pleural effusion. Significant edema. Per cumulative I&O patient is net +11 L. Gave dose lasix yesterday with fair urine output, SCr 2.9 yesterday and again today, will give another dose lasix today. She is not taking anything by mouth therefore unable to give Metolazone. No acute indication for renal placement therapy. Went into A-fib, patient being started on amiodarone IV. Assessment and plan reviewed with Dr. Balbuena
[2025-01-21] MEDS: Cefepime HCl 1 GM in 0.9% Normal Saline (50mL MB+) 50 ML IV (10:14)
[2025-01-21] MEDS: Digoxin 250 MCG/ML Ampul IV (10:52)
[2025-01-21] MEDS: 0.9% Saline Lock 10 ML Syringe IV (10:53)
--- NOTE | 2025-01-21 12:34 | PN_ITS ---
Subjective Subjective Patient seen and examined with her nurse by her bedside. Patient remains lethargic. However today she is at least able to answer to her name and say what her name is. Review of systems otherwise negative. Objective Data Objective Data Vital Signs: Vital Signs Temp Pulse Resp BP Pulse Ox O2 Del Method O2 Flow Rate 97 F L 130 H 15 107/52 L 95 Nasal Cannula 4 01/21/25 04:00 01/21/25 10:52 01/21/25 10:40 01/21/25 10:52 01/21/25 10:40 01/21/25 07:28 01/21/25 07:28 FiO2 25 01/21/25 10:40 Oxygen Flow Rate (L/min) 4 Oxygen Delivery Method Nasal Cannula Weight: 325 lb 6.436 oz Body Mass Index (BMI) 61.4 Intake & Output: Intake and Output for Last 24 Hours 01/19/25 01/20/25 01/21/25 23:59 23:59 23:59 Intake Total 50 / 50 50 / 50 153 / 153 Output Total 525 / 525 825 / 825 200 / 200 Balance -475 / -475 -775 / -775 -47 / -47 Lab / Micro Data 01/21/25 04:40 01/21/25 04:40 Labs: Laboratory Results - last 24 hr 01/20/25 15:42: POC Glucose 131 H 01/21/25 04:40: WBC 12.8 H, RBC 3.17 L, Hgb 9.6 L, Hct 31.1 L, MCV 98.1, MCH 30.3, MCHC 30.9 L, RDW Std Deviation 66.2 H, RDW Coeff of Radha 19.9 H, Plt Count 62 L, MPV 11.2, Immature Gran % (Auto) 0.900, Neut % (Auto) 88.0 H, Lymph % (Auto) 3.2 L, [place] % (Auto) 7.7, Eos % (Auto) 0.0, Baso % (Auto) 0.2, Absolute Neuts (auto) 11.3 H, Absolute Lymphs (auto) 0.41 L, Nucleated RBC % 0.3, Differential Comment SCANNED, Platelet Estimate MOD DEC, Anisocytosis 2+, Ovalocytes 1+, Acanthocytes (Spur) RARE, Schistocytes RARE, Sodium 147 H, Potassium 3.8, Chloride 116 H, Carbon Dioxide 18.3 L, Anion Gap 13, BUN 97 H, C reatinine 2.92 H, Estim Creat Clear Calc 25.89 L, Est GFR (MDRD) Non-Af 17 L, B UN/Creatinine Ratio 33.3 H, Glucose 122 H, Calcium 10.4, Total Bilirubin 2.03 H, AST 55 H, ALT 27, Alkaline Phosphatase 121 H, Total Protein 6.1, Albumin 2.7 L, Globulin 3.4, Albumin/Globulin Ratio 0.8 L, Free T4 1.80 H 01/21/25 08:29: Ammonia 65.0 H Micro: Microbiology 01/12/25 12:15 Blood Culture (Wb) - Right Hand Blood Culture - Final No growth in 5 days. 01/13/25 11:15 Sputum, Expectorated/Coughed Gram Stain - Final 01/13/25 11:15 Sputum, Expectorated/Coughed Respiratory Culture - Final Pseudomonas aeruginosa 01/12/25 07:53 Blood Culture (Wb) - Anticubital Right Blood Culture - Final No growth in 5 days. 01/12/25 09:48 Urine Catheter - South Urine Culture - Final Enterobacter cloacae complex Pseudomonas aeruginosa 01/12/25 09:48 Urine Catheter - South Legionella Antigen - Final 01/12/25 09:48 Urine Catheter - South Streptococcus pneumoniae Antigen (M - Final Physical Exam Narrative Const Constitutional Narrative: remains lethargic, somnolent, off BIPAP and on oxygen by nasal canula HEENT normocephalic, head/scalp atraumatic, moist oral mucous membranes and oropharynx normal Eyes PERRL and EOMs intact bilaterally Eyes Narrative: Legally blind Neck supple Lymph Lymphatic: no lymphedema noted Resp Resp Narrative: moderately diminished breath sounds bibasally, no wheezes or crackles. On 4 L of oxygen by nasal cannula today. Cardio S1 normal heart sound, S2 normal heart sound and no murmurs Cardio Narrative: A-fib with RVR GI normal to inspection, nondistended, normoactive bowel sounds and soft to palpation GI Narrative: Ecchymosis on anterior abdomen. Obese abdomen Inspection: abdominal distention Extremity normal to inspection, full ROM, normal capillary refill and no clubbing, cyanosis or edema General Extremity: edema bilateral lower extremity Details: moderate and no tenderness to palpation of joints or extremities Skin General Skin Exam: no breakdown Neuro Neuro Narrative: lethargic, somnolent, minimally responsive. Motor Exam: general weakness Psych Psych Narrative: lethargic, frail, minimally responsive. off BIPAP now. Assessment & Plan Assessment/Plan (1) Shock: PLAN: Plan #Multifactorial shock * thought to be septic vs cardiogenic * off levophed drip. Remains very frail and lethargic. * Blood and sputum cultures as well as urine cultures pending * on IV cefepime * critical care on board * Urine culture positive for Enterobacter and possible Pseudomonas * on midodrine; off yhydcorortisone * transferred to PCU * #Acute encephalopathy likely due to hepatic encephalopathy * Patient remains very somnolent and lethargic. * now off BIPAP and on 4L of oxygen by nasal canula * now on BIPAP again. * On BiPAP. pCO2 is 39.4. * Ammonia has gone up further to 65 from 51 yesterday. This likely contributing to her encephalopathy. * Will need to pass NG tube to give her lactulose. * Consult gastroenterology. Liver enzymes have been elevated and abdominal ultrasound did show evidence of cirrhosis so I think this is also contributing. Total bilirubin is up to 2.03 today. * #Acute hypoxic and hypercapnic respiratory failure * Now off BiPAP and on 4 L of oxygen. Titrate to maintain saturation above 90%. * # A-fib with RVR * Patient now in A-fib with RVR. This is because she has not been able to take her oral amiodarone and metoprolol. * Patient given amiodarone bolus as well as digoxin IV but still she remains tachycardic. Will start on amiodarone drip. * Will hold off on cardiology consult for now as this is simply because she is not been getting her oral meds. * #JH * Creatinine today is 2.92. Kidney ultrasound showed normal right kidney and nonvisualized left kidney * Baseline creatinine is 0.99. * Lasix is on hold. Thought to be prerenal. c * Nephrology on board. Management as per nephrology. * #Heart failure preserved ejection fraction: This is chronic. Being diuresed on account of stroke. #Anemia: * Hemoglobin today is 9.0 She has been transfused with 2 unit of packed red blood cells during this admission. * Was noted to have some postmenopausal vaginal bleeding. Pelvic ultrasound showed no acute pathology. * To follow-up with gynecology on outpatient basis * #Postmenopausal vaginal bleeding: * Became anemic as above. * Case was apparently discussed with [employer] who recommended possible pelvic MRI given suboptimal vaginal ultrasound. * To follow-up with [employer] on outpatient basis. If the bleeding recurs will consult gynecology * #Class III obesity: BMI 61.5. Complicates acute care, expected recovery and prognosis. #History of dementia: On rivastigmine DVT prophylaxis: SCDs Charges/Coding Visit Charges Inpatient E&M: 18123 Subs Hosp L3
[2025-01-21] MEDS: Amiodarone 360 MG in Dextrose 5% Viaflo Bag 192.8 ML 33.3 MG CONT INF (13:30)
--- NOTE | 2025-01-21 16:57 | CON.PCM.GI_ITS ---
HPI Consult Data Date of Consult: 01/21/25 HPI Narrative Reason for Consultation: altered mental status HPI Narrative: KIMBERLY ROBBINS, is a 69-year-old woman with a history of morbid obesity and GUZMAN cirrhosis with ascites, currently hospitalized. She presents with reports of palpitations, shortness of breath, and altered mental status. Family members report she was more confused than usual prior to admission. She has been in the hospital for management of pneumonia, complicated by multifactorial shock, and has had persistent hypotension. She is currently complaining of feeling weak and lightheaded. * ECG:?Atrial fibrillation with a rapid ventricular response (Afib with RVR), consistent with tachycardia. * Labs:?May show signs of infection (elevated WBC count), elevated liver function tests, abnormal electrolytes, and elevated creatinine. * Imaging:?Chest X-ray or CT scan would likely show consolidation consistent with pneumonia. * Other:?Ascitic fluid analysis may be relevant to assess for spontaneous bacterial peritonitis if indicated. [facility] Medical History (Updated 01/21/25 @ 17:[address] Duran Friend, DO) Normochromic normocytic anemia Paroxysmal atrial fibrillation Essential (primary) hypertension Difficulty balancing when standing Excessive weight loss Late effect of medical and surgical care complication Abdominal wall pain in both lower quadrants Edema of abdominal wall Intertrigo Panniculitis Rupture of hernia Neuropathy Kidney failure Breast lump in female History of blood transfusion UTI (urinary tract infection) Back problem Arthritis Panniculitis Pressure sore of left ischium, unstageable Right ischial pressure sore, stage 2 Pressure ulcer Osteoarthritis Depression Umbilical hernia Anemia Thrombocytopenia Atrial fibrillation with rapid ventricular response (12/2017) Abdominal panniculus Hyperlipidemia Morbid obesity Type 2 diabetes mellitus Home Medications ?Medication ?Instructions ?Recorded ?Last Taken ?Type alpha lipoic acid 300 mg capsule 600 mg PO DAILY neuro vladimir 09/21/19 01/11/25 History metoprolol tartrate 50 mg tablet 50 mg PO BID #60 tabs 09/23/19 01/11/25 Rx acetaminophen 500 mg capsule 1,000 mg PO Q8H PRN pain 12/09/24 11/16/24 History amiodarone 200 mg tablet 200 mg PO DAILY Irregular He art 12/09/24 01/11/25 History rate ferrous sulfate 325 mg (65 mg 325 mg PO DAILY Iron Sup plement 12/09/24 01/11/25 History iron) tablet (FeroSul) magnesium hydroxide 400 mg/5 mL 30 ml PO DAILY PRN con stipation 12/09/24 12/07/24 History oral suspension (Milk of Magnesia) mirabegron 25 mg tablet,extended 25 mg PO DAILY Overac tive Bladder 12/09/24 01/11/25 History release 24 hr (Myrbetriq) polyethylene glycol 3350 17 17 g PO DAILY Laxitve 10/2801/11/25 History gram/dose oral powder (Gavilax) sennosides 8.6 mg-docusate sodium 2 tab-cap PO QHS Sto ol Softener 12/09/24 01/10/25 History 50 mg tablet (Senna with Docusate Sodium) sitagliptin phosphate 100 mg 100 mg PO DAILY Diabetes 12/09/24 01/11/25 History tablet (Januvia) folic acid-vit B6-vit B12 0.8 1 tab PO DAILY Supplemen t 01/11/25 01/11/25 History mg-10 mg-115 mcg tablet (Foltabs 800) mirtazapine 15 mg tablet 15 mg PO QHS Antidepressant 01/11/25 01/11/25 History rivastigmine 13.3 mg/24 hour 1 patch topical DAILY Dem entia 01/11/25 01/11/25 History transdermal patch Allergy/AdvReac Type Severity Reaction Status Date / Time amoxicillin AdvReac Other Verified 01/12/25 01:07 latex AdvReac Other Verified 01/12/25 01:07 Family History Father Diabetes Mother Arthritis Hypertension Heart disease Sister Arthritis Diabetes Heart disease Hypertension High cholesterol Surgical History History of herniorrhaphy Hx of cholecystectomy Bilateral ischial wound debridement Social History housing: correction Smoking Status: Never smoker alcohol intake: never substance use type: does not use ROS ROS Narrative Unable to obtain Physical Exam Narrative HEENT normocephalic, head/scalp atraumatic, moist oral mucous membranes and oropharynx normal Eyes PERRL and EOMs intact bilaterally Eyes Narrative: Legally blind Neck supple Lymph Lymphatic: no lymphedema noted Resp Resp Narrative: moderately diminished breath sounds bibasally, no wheezes or crackles. On 4 L of oxygen by nasal cannula today. Cardio S1 normal heart sound, S2 normal heart sound and no murmurs Cardio Narrative: A-fib with RVR GI normal to inspection, nondistended, normoactive bowel sounds and soft to palpation GI Narrative: Ecchymosis on anterior abdomen. Obese abdomen Inspection: abdominal distention Extremity normal to inspection, full ROM, normal capillary refill and no clubbing, cyanosis or edema General Extremity: edema bilateral lower extremity Details: moderate and no tenderness to palpation of joints or extremities Skin General Skin Exam: no breakdown Neuro Neuro Narrative: lethargic, somnolent, minimally responsive. Motor Exam: general weakness Psych Psych Narrative: lethargic, frail, minimally responsive. off BIPAP now. Lab / Micro Data 01/21/25 04:40 01/21/25 04:40 Labs: Laboratory Results - last 24 hr 01/20/25 15:42: POC Glucose 131 H 01/21/25 04:40: WBC 12.8 H, RBC 3.17 L, Hgb 9.6 L, Hct 31.1 L, MCV 98.1, MCH 30.3, MCHC 30.9 L, RDW Std Deviation 66.2 H, RDW Coeff of Radha 19.9 H, Plt Count 62 L, MPV 11.2, Immature Gran % (Auto) 0.900, Neut % (Auto) 88.0 H, Lymph % (Auto) 3.2 L, [place] % (Auto) 7.7, Eos % (Auto) 0.0, Baso % (Auto) 0.2, Absolute Neuts (auto) 11.3 H, Absolute Lymphs (auto) 0.41 L, Nucleated RBC % 0.3, Differential Comment SCANNED, Platelet Estimate MOD DEC, Anisocytosis 2+, Ovalocytes 1+, Acanthocytes (Spur) RARE, Schistocytes RARE, Sodium 147 H, Potassium 3.8, Chloride 116 H, Carbon Dioxide 18.3 L, Anion Gap 13, BUN 97 H, C reatinine 2.92 H, Estim Creat Clear Calc 25.89 L, Est GFR (MDRD) Non-Af 17 L, B UN/Creatinine Ratio 33.3 H, Glucose 122 H, Calcium 10.4, Total Bilirubin 2.03 H, AST 55 H, ALT 27, Alkaline Phosphatase 121 H, Total Protein 6.1, Albumin 2.7 L, Globulin 3.4, Albumin/Globulin Ratio 0.8 L, Free T4 1.80 H 01/21/25 08:29: Ammonia 65.0 H Assessment & Plan Assessment/Plan (1) Metabolic acidosis: (2) Hyperbilirubinemia: (3) Anemia: (4) Shock: (5) Pneumonia: (6) Cirrhosis: PLAN: 69-year-old woman with significant comorbidities of morbid obesity and end-stage liver disease (GUZMAN cirrhosis). She is experiencing multifactorial shock, with contributions from septic shock due to pneumonia and cardiogenic shock due to new-onset or exacerbated Afib with RVR. Her persistent hypotension is likely a result of the combination of sepsis, tachycardia-induced cardiomyopathy (Afib with RVR), and possible hypovolemia or third-spacing of fluids from her ascites. The altered mental status is likely a multifactorial issue, stemming from sepsis, hypoxia, and hepatic encephalopathy related to her advanced cirrhosis. The complex interplay between her chronic and acute conditions poses a significant management challenge. * Cardiovascular: * Continue monitoring cardiac rhythm, with goal of rate control to <110 bpm. * medications for rate control (e.g., beta-blockers or calcium channel blockers if tolerated).. * Infectious Disease: * Continue broad-spectrum IV antibiotics for pneumonia. * Monitor white blood cell count, temperature, and inflammatory markers. * Gastroenterology * Continue monitoring liver function and mental status for signs of hepatic encephalopathy. * Adjust medications for encephalopathy (e.g., lactulose) as needed. * Monitor abdominal girth and daily weights for changes in ascites. * Pulmonary: * Continue oxygen support to maintain adequate oxygen saturation. * Frequent respiratory assessments for changes in lung sounds or work of breathing. * Fluid Management: * Carefully titrate fluids and vasopressors to manage persistent hypotension, balancing the need for volume expansion against the risk of worsening ascites. * Neurological: * Frequent neurological checks to monitor mental status, orientation, and level of consciousness. * Nutritional: * Nutrition consult to optimize nutritional status in the setting of morbid obesity and cirrhosis. * Social Work: * Engage social work and family to discuss goals of care? Charges/Coding Visit Charges Inpatient E&M: 07430 Init Hosp L3
[2025-01-21] MEDS: Amiodarone 360 MG in Dextrose 5% Viaflo Bag 192.8 ML 16.7 MG CONT INF (19:54)
[2025-01-22] VITALS (24 sets, daily range): BP systolic 83–135; BP diastolic 38–84; PULSE 93–115; RESP 12–101; TEMP 36.1–36.6; O2SAT 16–98; BMI 62.4
[2025-01-22 05:16] LABS: Hematocrit 32.9 % (37-47); Hemoglobin 10.2 g/dL (12.0-15.0); Immature Granulocytes Count 0.320 X10^3/uL (0.0-0.0); Mean Corp Hgb Conc 31.0 g/dL (32-36); Mean Corpuscular Volume 97.9 fL (81-99); Mean Platelet Vol. 11.6 fl (6.2-12.0); NRBC Flagged by Analyzer 0.5 % (0-5); POSITIVE COUNT YES; POSITIVE DIFFERENTIAL YES; POSITIVE MORPHOLOGY YES; Platelet Count 71 K/mm3 (150-450); RBC Distribution Width CV 20.5 % (11.6-14.6); RBC Distribution Width SD 68.3 fl (35.1-43.9); Red Blood Count 3.36 M/mm3 (4.2-5.4); White Blood Count 18.1 K/mm3 (4.4-11.0)
[2025-01-22 05:42] LABS: Ammonia 43.0 umol/L (11-51)
[2025-01-22 05:48] LABS: AST(SGOT) 70 U/L (<=31); Alanine Aminotransfer ALT/SGPT 32 U/L (<=34); Albumin, Serum 2.7 g/dL (3.4-4.8); Alkaline Phosphatase 135 U/L (35-104); Anion Gap 13 (5-15); BUN 103 mg/dL (4-19); BUN/Creat Ratio 33.0 RATIO (10-20); Calcium,Total 10.7 mg/dL (7.6-11.0); Carbon Dioxide 17.8 mmol/L (21.0-32.0); Chloride 116 mmol/L (98-108); Estimated Creatinine Clearance 24.50 ml/min (50-250); Globulin 3.5 g/dL (2.2-4.2); Glucose 136 mg/dL (70-99); Potassium 3.9 mmol/L (3.3-5.1)
[2025-01-22 05:53] LABS: Differential Indicated SCAN CRITERIA MET
[2025-01-22 06:10] LABS: Differential Comment SCANNED
[2025-01-22] MEDS: Albuterol 2.5 MG/3 ML VIAL.NEB. INHALATION ×2 (06:59→14:30)
[2025-01-22] MEDS: Amiodarone 360 MG in Dextrose 5% Viaflo Bag 192.8 ML 16.7 MG CONT INF (08:19)
--- NOTE | 2025-01-22 10:16 | CASEMGMT ---
During rounds, Dr Guerrero reports that she plans to have a goals of care discussion with the family. Care Management to follow. DPA laundry assistant notified and plans to keep [address] updated with DC planning.
[2025-01-22] MEDS: LINAGLIPTIN 5 MG TABLET PO (11:05)
--- NOTE | 2025-01-22 11:50 | EKG12_ITS ---
Test Reason : O Blood Pressure : */* mmHG Vent. Rate : 102 BPM Atrial Rate : 102 BPM P-R Int : 300 ms QRS Dur : 112 ms QT Int : 384 ms P-R-T Axes : -2 -55 110 degrees QTcB Int : 500 ms Sinus tachycardia with 1st degree A-V block Left anterior fascicular block Anterolateral infarct , age undetermined Abnormal ECG When compared with ECG of 21-Jan-2025 07:38, MANUAL COMPARISON REQUIRED DATA IS UNCONFIRMED Confirmed by CIRILO FAGAN, DENISHA ([id number]), editorial manager JOSE RAUL CLARK ([id number]) on 01/25/2025 9:32:53 AM Referred By: Confirmed By: DENISHA KERR MD
--- NOTE | 2025-01-22 15:44 | PN.RENAL_ITS ---
Subjective Subjective Patient moaning out, not following commands. Patient's sister who is POA and niece at bedside. No overnight events. On O2 per nasal cannula. Objective Data Objective Data Vital Signs: Vital Signs Temp Pulse Resp BP Pulse Ox O2 Del Method O2 Flow Rate 97.9 F 93 101 H 109/41 L 16 Nasal Cannula 2 01/22/25 08:00 01/22/25 13:21 01/22/25 13:21 01/22/25 09:00 01/22/25 13:21 01/22/25 09:00 01/22/25 09:00 FiO2 25 01/22/25 13:21 Oxygen Flow Rate (L/min) 2 Oxygen Delivery Method Nasal Cannula Weight: 150 kg Body Mass Index (BMI) 62.4 Intake & Output: Intake and Output for Last 24 Hours 01/20/25 01/21/25 01/22/25 23:59 23:59 23:59 Intake Total 50 / 50 404.77 / 421.47 148.23 / 148.23 Output Total 825 / 825 325 / 475 250 / 250 Balance -775 / -775 79.77 / -53.53 -101.77 / -101.77 Lab / Micro Data 01/22/25 05:04 01/22/25 05:04 Labs: Laboratory Results - last 24 hr 01/22/25 05:04: WBC 18.1 H, RBC 3.36 L, Hgb 10.2 L, Hct 32.9 L, MCV 97.9, MCH 30.4, MCHC 31.0 L, RDW Std Deviation 68.3 H, RDW Coeff of Radha 20.5 H, Plt Count 71 L, MPV 11.6, Immature Gran % (Auto) 1.800 H, Neut % (Auto) 87.2 H, Lymph % (Auto) 2.7 L, [place] % (Auto) 7.8, Eos % (Auto) 0.1, Baso % (Auto) 0.4, Absolute Neuts (auto) 15.8 H, Absolute Lymphs (auto) 0.49 L, Nucleated RBC % 0.5, Differential Comment SCANNED, Platelet Estimate SLT DEC, Sodium 147 H, Potassium 3.9, Chloride 116 H, Carbon Dioxide 17.8 L, Anion Gap 13, BUN 103 H*, Creatinine 3.12 H, Estim Creat Clear Calc 24.50 L, Est GFR (MDRD) Non-Af 16 L, B UN/Creatinine Ratio 33.0 H, Glucose 136 H, Calcium 10.7, Total Bilirubin 2.94 H, AST 70 H, ALT 32, Alkaline Phosphatase 135 H, Ammonia 43.0, Total Protein 6.2, A lbumin 2.7 L, Globulin 3.5, Albumin/Globulin Ratio 0.8 L Micro: Microbiology 01/12/25 12:15 Blood Culture (Wb) - Right Hand Blood Culture - Final No growth in 5 days. 01/13/25 11:15 Sputum, Expectorated/Coughed Gram Stain - Final 01/13/25 11:15 Sputum, Expectorated/Coughed Respiratory Culture - Final Pseudomonas aeruginosa 01/12/25 07:53 Blood Culture (Wb) - Anticubital Right Blood Culture - Final No growth in 5 days. 01/12/25 09:48 Urine Catheter - South Urine Culture - Final Enterobacter cloacae complex Pseudomonas aeruginosa 01/12/25 09:48 Urine Catheter - South Legionella Antigen - Final 01/12/25 09:48 Urine Catheter - South Streptococcus pneumoniae Antigen (M - Final Physical Exam Narrative opens eyes to name, no apparent distress, does not follow commands S1, S2, RRR Diminished breath sounds. On O2 nasal cannula Abdomen rounded, edema noted across lower abdominal wall ++Pitting edema bilateral legs and thighs Indwelling South clear yellow urine in bag Assessment & Plan Assessment/Plan (1) JH (acute kidney injury): (2) Metabolic acidosis: PLAN: Plan This is a 69-year-old female with past medical history significant for A-fib, hypertension, super morbid obesity, type 2 diabetes mellitus who was admitted to the hospital on January 11 as she was sent from [facility] for shortness of breath and abnormal lab work. Patient also was noted to have postmenopausal vaginal bleeding. She was admitted for pneumonia, fluid overload, hospital course complicated by shock felt to be secondary to pneumonia and vaginal bleeding patient was then transferred to ICU. Nephrology consulted in view of elevated creatinine and non anion gap metabolic acidosis. Patient received 2 amps bicarb, now on O2 nasal canula. Chest x-ray: cardiomegaly with moderate vascular congestion, increased bilateral airspace disease likely edema, right pleural effusion. Significant edema. Per cumulative I&O patient is net +11 L. Patient received Lasix 80 mg IV on 01/20 with some increase in urine output. Urine output today around 250 mL so far. Attempted to give another dose Lasix yesterday but unable to due to hypotension. She is not taking anything by mouth. Today creatinine 3.12, potassium 3.9, sodium 147, bicarb 17.8. No acute indication for renal placement therapy. Went into A-fib, on amiodarone IV. Discussed with patient's sister who is POA and niece at bedside regarding renal function, questions were answered. Per sister patient did require 1 dialysis session over 5 years ago. No acute indication for renal placement therapy at this time but I did discuss with family that patient may be heading that way. They are going to have conversation with hospitalist about overall goals of care. Assessment and plan reviewed with Dr. Balbuena
--- NOTE | 2025-01-22 15:51 | PN_ITS ---
Subjective Subjective Patient seen and examined. She remains very lethargic and weak. Unable to do review of systems due to lethargy. She remains on oxygen by nasal cannula. WBC is up to 18 today. Platelets of 71 and bilirubin is up to 2.94. Creatinine is also up to 3.12 and BUN is 113. Both nephrology and GI on board. Objective Data Objective Data Vital Signs: Vital Signs Temp Pulse Resp BP Pulse Ox O2 Del Method O2 Flow Rate 97.9 F 93 101 H 109/41 L 16 Nasal Cannula 2 01/22/25 08:00 01/22/25 13:21 01/22/25 13:21 01/22/25 09:00 01/22/25 13:21 01/22/25 09:00 01/22/25 09:00 FiO2 25 01/22/25 13:21 Oxygen Flow Rate (L/min) 2 Oxygen Delivery Method Nasal Cannula Weight: 330 lb 11.094 oz Body Mass Index (BMI) 62.4 Intake & Output: Intake and Output for Last 24 Hours 01/20/25 01/21/25 01/22/25 23:59 23:59 23:59 Intake Total 50 / 50 404.77 / 421.47 148.23 / 148.23 Output Total 825 / 825 325 / 475 250 / 250 Balance -775 / -775 79.77 / -53.53 -101.77 / -101.77 Lab / Micro Data 01/22/25 05:04 01/22/25 05:04 Labs: Laboratory Results - last 24 hr 01/22/25 05:04: WBC 18.1 H, RBC 3.36 L, Hgb 10.2 L, Hct 32.9 L, MCV 97.9, MCH 30.4, MCHC 31.0 L, RDW Std Deviation 68.3 H, RDW Coeff of Radha 20.5 H, Plt Count 71 L, MPV 11.6, Immature Gran % (Auto) 1.800 H, Neut % (Auto) 87.2 H, Lymph % (Auto) 2.7 L, [place] % (Auto) 7.8, Eos % (Auto) 0.1, Baso % (Auto) 0.4, Absolute Neuts (auto) 15.8 H, Absolute Lymphs (auto) 0.49 L, Nucleated RBC % 0.5, Differential Comment SCANNED, Platelet Estimate SLT DEC, Sodium 147 H, Potassium 3.9, Chloride 116 H, Carbon Dioxide 17.8 L, Anion Gap 13, BUN 103 H*, Creatinine 3.12 H, Estim Creat Clear Calc 24.50 L, Est GFR (MDRD) Non-Af 16 L, B UN/Creatinine Ratio 33.0 H, Glucose 136 H, Calcium 10.7, Total Bilirubin 2.94 H, AST 70 H, ALT 32, Alkaline Phosphatase 135 H, Ammonia 43.0, Total Protein 6.2, A lbumin 2.7 L, Globulin 3.5, Albumin/Globulin Ratio 0.8 L Micro: Microbiology 01/12/25 12:15 Blood Culture (Wb) - Right Hand Blood Culture - Final No growth in 5 days. 01/13/25 11:15 Sputum, Expectorated/Coughed Gram Stain - Final 01/13/25 11:15 Sputum, Expectorated/Coughed Respiratory Culture - Final Pseudomonas aeruginosa 01/12/25 07:53 Blood Culture (Wb) - Anticubital Right Blood Culture - Final No growth in 5 days. 01/12/25 09:48 Urine Catheter - South Urine Culture - Final Enterobacter cloacae complex Pseudomonas aeruginosa 01/12/25 09:48 Urine Catheter - South Legionella Antigen - Final 01/12/25 09:48 Urine Catheter - South Streptococcus pneumoniae Antigen (M - Final Physical Exam Narrative Const Constitutional Narrative: remains lethargic, somnolent, off BIPAP and on oxygen by nasal canula Eyes EOMs intact bilaterally Eyes Narrative: Legally blind Neck no lymphadenopathy and supple Lymph Lymphatic: no lymphedema noted Resp Resp Narrative: moderately diminished breath sounds bibasally, no wheezes or crackles. On 3L of oxygen by nasal canula Cardio regular rate, regular rhythm, S1 normal heart sound, S2 normal heart sound and no murmurs GI normal to inspection, nondistended, normoactive bowel sounds, soft to palpation and non-tender GI Narrative: obese, mildly distended abdomen Inspection: abdominal distention Extremity normal to inspection, normal capillary refill and no clubbing, cyanosis or edema General Extremity: edema bilateral lower extremity Details: moderate and no tenderness to palpation of joints or extremities Skin General Skin Exam: no breakdown Neuro Neuro Narrative: lethargic, somnolent, minimally responsive. Motor Exam: general weakness Psych Psych Narrative: lethargic, frail, minimally responsive. Assessment & Plan Assessment/Plan (1) Shock: PLAN: Plan #Multifactorial shock * thought to be septic vs cardiogenic * off levophed drip. Remains very frail and lethargic. * Blood and sputum cultures as well as urine cultures pending * on IV cefepime * critical care on board * Urine culture positive for Enterobacter and possible Pseudomonas * on midodrine; off yhydcorortisone * * #Acute encephalopathy likely due to hepatic encephalopathy * Patient remains very somnolent and lethargic. * remains off BIPAP, and is on 4L of oxygen by nasal canula * On BiPAP. pCO2 is 39.4. * On lactulose. Ammonia has trended down to the 40s. Still however remains encephalopathic. Bilirubin is trending upwards and kidney function is also worsening. * Gastroenterology on board. Patient did not tolerate inserting an NG tube per GI. * I met with patient's family and had an extensive goals of care discussion with them. They are open to hospice but want to think about it a bit more before they make a decision. * Gastroenterology on board. * on rectal lactulose prn. * #Acute hypoxic and hypercapnic respiratory failure * remains on 3-4L of oxygen. Titrate to maintain saturation above 90%. * breathing treatment with bronchodilators. Titrate oxygen to maintain sats >90% * # A-fib with RVR * now rate controlled. Unable to take oral amiodarone hence placed on amiodarone drip. * will wean off amiodarone drip as tolerated. * #JH * Creatinine today is further up to 3.112. Kidney ultrasound showed normal right kidney and nonvisualized left kidney * Baseline creatinine is 0.99. * Lasix is on hold. Thought to be prerenal. * Nephrology on board. Management as per nephrology. * #Heart failure preserved ejection fraction: This is chronic. Being diuresed on account of stroke. #Anemia: * Hemoglobin today is 9.0 She has been transfused with 2 unit of packed red blood cells during this admission. * Was noted to have some postmenopausal vaginal bleeding. Pelvic ultrasound showed no acute pathology. * To follow-up with gynecology on outpatient basis * #Postmenopausal vaginal bleeding: * Became anemic as above. * Case was apparently discussed with [facility] who recommended possible pelvic MRI given suboptimal vaginal ultrasound. * To follow-up with [facility] on outpatient basis. If the bleeding recurs will consult gynecology * #Class III obesity: BMI 61.5. Complicates acute care, expected recovery and prognosis. #History of dementia: On rivastigmine DVT prophylaxis: SCDs Disposition: I met with patient's sister, niece and nephew in law. I had an extensive goals of care discussion with them and discussed the fact that her kidney function was worsening as well as her liver function. Total bilirubin was trending upwards. Patient also has intermittent CO2 retention requiring BiPAP intermittently. Nephrology is not leaning towards dialysis as they do not think they will be the best option for her. I spoke to the director credit risk also who stated patient not tolerating insrtion of an NG tube to give the lactulose to help alleviate the encephalopathy. I did bring up the option of palliative care and hospice with her family. They are open to hospice as they do not want her to suffer anymore, but want a bit of time to think about it further. They will let us know when they make their final decision. Charges/Coding Visit Charges Inpatient E&M: 80942 Subs Hosp L3
[2025-01-23] VITALS: BP 108/65; PULSE 110; RESP 18; TEMP 35.6; O2SAT 97
[2025-01-23 03:03] VITALS: BMI 60.7
[2025-01-23 04:00] VITALS: BP 129/66; PULSE 105; RESP 20; TEMP 35.7; O2SAT 96
[2025-01-23 05:07] LABS: HEPATITIS B SURFACE AG Negative (Negative); Hep C Antibodies Non Reactive (Non Reactive)
[2025-01-23 06:39] LABS: Hematocrit 35.0 % (37-47); Hemoglobin 10.8 g/dL (12.0-15.0); Immature Granulocytes Count 0.160 X10^3/uL (0.0-0.0); Mean Corp Hgb Conc 30.9 g/dL (32-36); Mean Corpuscular Volume 99.7 fL (81-99); Mean Platelet Vol. 11.5 fl (6.2-12.0); NRBC Flagged by Analyzer 0.9 % (0-5); POSITIVE COUNT YES; POSITIVE DIFFERENTIAL YES; POSITIVE MORPHOLOGY YES; Platelet Count 68 K/mm3 (150-450); RBC Distribution Width CV 21.0 % (11.6-14.6); RBC Distribution Width SD 70.2 fl (35.1-43.9); Red Blood Count 3.51 M/mm3 (4.2-5.4); White Blood Count 18.3 K/mm3 (4.4-11.0)
[2025-01-23] MEDS: Albuterol 2.5 MG/3 ML VIAL.NEB. INHALATION ×2 (06:48→13:27)
[2025-01-23 07:17] LABS: Differential Indicated SCAN CRITERIA MET
[2025-01-23 07:28] VITALS: PULSE 99; RESP 20; O2SAT 96
[2025-01-23 07:43] LABS: AST(SGOT) 73 U/L (<=31); Alanine Aminotransfer ALT/SGPT 36 U/L (<=34); Albumin, Serum 2.6 g/dL (3.4-4.8); Alkaline Phosphatase 167 U/L (35-104); Anion Gap 14 (5-15); BUN 110 mg/dL (4-19); BUN/Creat Ratio 31.4 RATIO (10-20); Calcium,Total 11.0 mg/dL (7.6-11.0); Carbon Dioxide 16.8 mmol/L (21.0-32.0); Chloride 117 mmol/L (98-108); Estimated Creatinine Clearance 21.43 ml/min (50-250); Globulin 3.8 g/dL (2.2-4.2); Glucose 126 mg/dL (70-99); Potassium 4.0 mmol/L (3.3-5.1)
[2025-01-23 07:59] LABS: Anisocytosis 1+; Polychromasia 1+
[2025-01-23 09:27] VITALS: BP 116/56; PULSE 110; RESP 20; TEMP 36.3; O2SAT 95
[2025-01-23] MEDS: 0.9% Saline Lock 10 ML Syringe IV (09:45)
--- NOTE | 2025-01-23 12:29 | CASEMGMT ---
Addendum entered by Pinky Mittal 01/23/25 13:29: Social Work SW did send an update to [facility] letting them know pt is going to the [facility] today. ELZBIETA Howell Original Note: Social Work Pt is going to go the inpt hospice unit today. TRACI HowellS
[2025-01-23 13:48] VITALS: PULSE 103; RESP 20
--- NOTE | 2025-01-23 15:07 | DS.PCM_ITS ---
Providers Date of Admission: 01/12/25 Date of Discharge: 01/23/25 Primary Care Physician: Dr. Jame Coello MD Consultations 01/12/25 07:36 Consult: Leather Toggler / Pulmonary Medicine Routine Consulting Provider: Intensivists/Pulmonary Med Reason for Consult: shock EMERGENT Consult: No Notified: Yes Date Notified: 01/12/25 Time Notified: 07:36 Method of Notification: Verbal 01/13/25 09:57 Consult: Onc/Wound/airflight attendants supervisor Routine Comment: Reason for Consult:: Breast wound 01/20/25 08:24 Consult: Nephrology Routine Consulting Provider: Roxana Balbuena Reason for Consult: JH on CKD EMERGENT Consult: No Notified: Yes Date Notified: 01/20/25 Time Notified: 08:24 Method of Notification: Answering Service 01/21/25 12:44 Consult: Gastroenterology Routine Consulting Provider: [facility] Reason for Consult: acute hepatic encephlaopathy EMERGENT Consult: No Notified: Yes Date Notified: 01/21/25 Time Notified: 12:45 Method of Notification: Text 01/22/25 17:25 Consult: Hospice / Outpatient Palliative Care Routine Consulting Provider: [facility] Reason for Consult: family request for hospice, hepatic encephalopathy and worsening JH EMERGENT Consult: No Notified: Yes Date Notified: 01/22/25 Time Notified: 17:37 Method of Notification: Answering Service Reason For Visit: PNEUMONIA, CHF, ACUTE RENAL FAILURE Diagnosis Discharge Diagnosis (1) Shock: Status: Acute Code(s): R57.9 - Shock, unspecified Plan #Multifactorial shock * thought to be septic vs cardiogenic * off levophed drip. Remains very frail and lethargic. * Blood and sputum cultures as well as urine cultures pending * on IV cefepime * critical care on board * Urine culture positive for Enterobacter and possible Pseudomonas * on midodrine; off yhydcorortisone * * #Acute encephalopathy likely due to hepatic encephalopathy * Patient remains very somnolent and lethargic. * remains off BIPAP, and is on 4L of oxygen by nasal canula * On BiPAP. pCO2 is 39.4. * On lactulose. Ammonia has trended down to the 40s. Still however remains encephalopathic. Bilirubin is trending upwards and kidney function is also worsening. * Gastroenterology on board. Patient did not tolerate inserting an NG tube per GI. * I met with patient's family and had an extensive goals of care discussion with them. They are open to hospice but want to think about it a bit more before they make a decision. * Gastroenterology on board. * on rectal lactulose prn. * #Acute hypoxic and hypercapnic respiratory failure * remains on 3-4L of oxygen. Titrate to maintain saturation above 90%. * breathing treatment with bronchodilators. Titrate oxygen to maintain sats >90% * # A-fib with RVR * now rate controlled. Unable to take oral amiodarone hence placed on amiodarone drip. * will wean off amiodarone drip as tolerated. * #JH * Creatinine today is further up to 3.112. Kidney ultrasound showed normal right kidney and nonvisualized left kidney * Baseline creatinine is 0.99. * Lasix is on hold. Thought to be prerenal. * Nephrology on board. Management as per nephrology. * #Heart failure preserved ejection fraction: This is chronic. Being diuresed on account of stroke. #Anemia: * Hemoglobin today is 9.0 She has been transfused with 2 unit of packed red blood cells during this admission. * Was noted to have some postmenopausal vaginal bleeding. Pelvic ultrasound showed no acute pathology. * To follow-up with gynecology on outpatient basis * #Postmenopausal vaginal bleeding: * Became anemic as above. * Case was apparently discussed with TOOL SHAPER SET UP OPERATOR who recommended possible pelvic MRI given suboptimal vaginal ultrasound. * To follow-up with TOOL SHAPER SET UP OPERATOR on outpatient basis. If the bleeding recurs will consult gynecology * #Class III obesity: BMI 61.5. Complicates acute care, expected recovery and prognosis. #History of dementia: On rivastigmine DVT prophylaxis: SCDs Disposition: I met with patient's sister, niece and nephew in law. I had an extensive goals of care discussion with them and discussed the fact that her kidney function was worsening as well as her liver function. Total bilirubin was trending upwards. Patient also has intermittent CO2 retention requiring BiPAP intermittently. Nephrology is not leaning towards dialysis as they do not think they will be the best option for her. I spoke to the face hardener also who stated patient not tolerating insrtion of an NG tube to give the lactulose to help alleviate the encephalopathy. I did bring up the option of palliative care and hospice with her family. They are open to hospice as they do not want her to suffer anymore, but want a bit of time to think about it further. They will let us know when they make their final decision. Medications at Discharge Home Medications alpha lipoic acid 300 mg capsule 600 mg PO DAILY neuropathy 09/21/19 metoprolol tartrate 50 mg tablet 50 mg PO BID #60 tabs 09/23/19 acetaminophen 500 mg capsule 1,000 mg PO Q8H PRN pain 12/09/24 amiodarone 200 mg tablet 200 mg PO DAILY Irregular Heart rate 12/09/24 ferrous sulfate 325 mg (65 mg iron) tablet (FeroSul) 325 mg PO DAILY Iron Supplement 12/09/24 magnesium hydroxide 400 mg/5 mL oral suspension (Milk of Magnesia) 30 ml PO DAILY PRN constipation 12/09/24 mirabegron 25 mg tablet,extended release 24 hr (Myrbetriq) 25 mg PO DAILY Overactive Bladder 12/09/24 polyethylene glycol 3350 17 gram/dose oral powder (Gavilax) 17 g PO DAILY Laxitve 12/09/24 sennosides 8.6 mg-docusate sodium 50 mg tablet (Senna with Docusate Sodium) 2 tab-cap PO QHS Stool Softener 12/09/24 sitagliptin phosphate 100 mg tablet (Januvia) 100 mg PO DAILY Diabetes 12/09/24 folic acid-vit B6-vit B12 0.8 mg-10 mg-115 mcg tablet (Foltabs 800) 1 tab PO DAILY Supplement 01/11/25 mirtazapine 15 mg tablet 15 mg PO QHS Antidepressant 01/11/25 rivastigmine 13.3 mg/24 hour transdermal patch 1 patch topical DAILY Dementia 01/11/25 Hospital Course Operations None Procedures None Summary of Care Provided Minutes Spent on Discharge: 45 Hospital Course: Patient is a 69-year-old female with a past medical history as outlined was admitted through the ED on 01/11/2025 with a complaint of shortness of breath and abnormal labs done. [facility]. She had been short of breath for a few days prior to admission. Labs done in the [facility] were abnormal so she was sent to the ED. Labs done in the ED showed WBC of 9.1 with hemoglobin of 7.9. Platelets were 120 and sodium was 139 with potassium of 4.7 and bicarb of 19.4. proBNP was elevated at 05/06/2006. Total bilirubin was 1.03. CT of the abdomen showed right lung base infiltrate and right pleural effusion with mild cardiomegaly and moderate abdominal ascites as well as extensive edema. She was admitted and managed for JH as well as pneumonia and hypoxia due to fluid overload from CHF, ascites and underlying liver disease with JH. She was transferred to the ICU due to hemodynamic instability and required vasopressor initiation. She was managed for multifactorial shock and started on Levophed. She had recently had postmenopausal vaginal bleeding also. Pelvic ultrasound done however was noncontributory. She had 2D echo done which showed EF of 60% with mildly enlarged left atrium and left pleural effusion. She had a prolonged and protracted hospital course and was eventually weaned off of the Lasix. However hospital course was complicated by CO2 retention requiring intermittent BiPAP. Her kidney function and liver function also worsened. Nephrology and gastroenterology were consulted. She developed hepatic encephalopathy due to worsening liver function. Due to the severe lethargy she could not taking anything p.o. She has been given rectal lactulose and ammonia to trend downwards. Nephrology reviewed patient's but did not think dialysis would be the best option for her though they felt she was heading that way. On 01/22/2025 had an extensive discussion with patient's sister, her niece and nephew in law about the goals of care and prognosis. They did not think that they wanted her to have dialysis either and were amenable to hospice. Hospice was therefore consulted and met with the family on 01/23/2025. Patient was accepted to hospice medical facility and discharged there on 01/23/2025. Patient seen and examined prior to discharge. Family was by her bedside. She remained lethargic. Unable to do comprehensive review of systems. Plans to transfer to hospice medical facility today. Physical Exam Narrative Const alert Constitutional Narrative: remains lethargic, somnolent, off BIPAP and on oxygen by nasal canula. Now up to 8L by nasal canula HEENT normocephalic and head/scalp atraumatic Mouth: dry mucous membranes Eyes EOMs intact bilaterally and conjunctivae normal Eyes Narrative: Legally blind Neck no lymphadenopathy and supple Lymph Lymphatic: no lymphedema noted Resp Resp Narrative: moderately diminished breath sounds bibasally, no wheezes or crackles. On 8 L of oxygen by nasal canula Cardio Cardio Narrative: A-fib with RVR GI normal to inspection, nondistended, normoactive bowel sounds, soft to palpation and non-tender GI Narrative: obese, mildly distended abdomen Inspection: abdominal distention Extremity normal to inspection, normal capillary refill and no clubbing, cyanosis or edema General Extremity: edema bilateral lower extremity Details: moderate and no tenderness to palpation of joints or extremities Skin General Skin Exam: no breakdown Neuro no focal motor deficits and no sensory deficits noted Neuro Narrative: lethargic, somnolent, minimally responsive. Motor Exam: general weakness Psych Psych Narrative: lethargic, frail, minimally responsive. Weight / BMI Weight Weight: 321 lb 10.471 oz Body Mass Index (BMI) 60.7 ABG / Lab / Microbiology Data 01/23/25 05:14 01/23/25 05:14 Laboratory: Laboratory Results - last 24 hr 01/21/25 14:33: Hepatitis A IgM Ab Negative, Hep Bs Antigen Negative, Hep B Core IgM Ab Negative, Hepatitis C Ab (EIA) Non Reactive, Hep C Ab Comment Comment 01/23/25 05:14: WBC 18.3 H, RBC 3.51 L, Hgb 10.8 L, Hct 35.0 L, MCV 99.7 H, MCH 30.8, MCHC 30.9 L, RDW Std Deviation 70.2 H, RDW Coeff of Radha 21.0 H, Plt Count 68 L, MPV 11.5, Immature Gran % (Auto) 0.900, Neut % (Auto) 86.2 H, Lymph % (Auto) 2.7 L, [place] % (Auto) 8.1, Eos % (Auto) 1.6, Baso % (Auto) 0.5, Absolute Neuts (auto) 15.7 H, Absolute Lymphs (auto) 0.50 L, Nucleated RBC % 0.9, Platelet Estimate MOD DEC, Polychromasia 1+, Anisocytosis 1+, Sodium 148 H, Potassium 4.0, Chloride 117 H, Carbon Dioxide 16.8 L, Anion Gap 14, BUN 110 H*, Creatinine 3.50 H, Estim Creat Clear Calc 21.43 L, Est GFR (MDRD) Non-Af 14 L, B UN/Creatinine Ratio 31.4 H, Glucose 126 H, Calcium 11.0, Total Bilirubin 3.36 H, AST 73 H, ALT 36 H, Alkaline Phosphatase 167 H, Total Protein 6.4, Albumin 2.6 L , Globulin 3.8, Albumin/Globulin Ratio 0.7 L Microbiology: Microbiology 01/12/25 12:15 Blood Culture (Wb) - Right Hand Blood Culture - Final No growth in 5 days. 01/13/25 11:15 Sputum, Expectorated/Coughed Gram Stain - Final 01/13/25 11:15 Sputum, Expectorated/Coughed Respiratory Culture - Final Pseudomonas aeruginosa 01/12/25 07:53 Blood Culture (Wb) - Anticubital Right Blood Culture - Final No growth in 5 days. 01/12/25 09:48 Urine Catheter - South Urine Culture - Final Enterobacter cloacae complex Pseudomonas aeruginosa 01/12/25 09:48 Urine Catheter - South Legionella Antigen - Final 01/12/25 09:48 Urine Catheter - South Streptococcus pneumoniae Antigen (M - Final D/C Instructions DC O2, CPAP, BIPAP Needs Home O2 Discharge instructions: No DC home with Oxygen: No Meaningful Use Info Meaningful Use Meaningful Use Diagnoses (Choose all that apply): None applicable Discharge Plan Admission Admit Date/Time: 01/12/25 00:04 Attending Provider: Lorelei Guerrero Primary Care Provider: Jame Coello Consulting Providers: Jame Coello; Mika Em; Roxana Balbuena; Alex Villa; Roger Remy; Enid Gonzalez; Vanessa De Los Santos; Rupa Solomon; Karan Sharma; Cecy Guevara; Vanessa Mcintosh; Shala Waters; Jackie Nelson NP; Vangie Shultz Discharge Orders/Prescriptions Prescriptions: No Action alpha lipoic acid 300 MG capsule 600 mg PO DAILY metoprolol tartrate 50 MG tablet 50 mg PO BID Qty: 60 1RF Januvia 100 mg tablet 100 mg PO DAILY Patient Comments: [NO ORIGINAL SIG] mirabegron [Myrbetriq] 25 mg tablet extended release 24 hr 25 mg PO DAILY ferrous sulfate [FeroSul] 325 mg (65 mg iron) tablet 325 mg PO DAILY magnesium hydroxide [Milk of Magnesia] 400 mg/5 mL suspension 30 ml PO DAILY PRN (Reason: constipation) sennosides-docusate sodium [Senna with Docusate Sodium] 8.6-50 mg tablet 2 tab-cap PO QHS acetaminophen 500 mg capsule 1,000 mg PO Q8H PRN (Reason: pain) polyethylene glycol 3350 [Gavilax] 17 gram/dose powder 17 g PO DAILY amiodarone 200 MG tablet 200 mg PO DAILY Foltabs 800 0.8-10-115 mg-mg-mcg tablet 1 tab PO DAILY mirtazapine 15 mg tablet 15 mg PO QHS Patient Comments: [NO ORIGINAL SIG] rivastigmine 13.3 mg/24 hour patch 24 hour 1 patch topical DAILY Referrals / Follow Up: Jame Coello MD [Primary Care Provider, Family Practice] Disposition Disposition (needs filled in before D/C Order can be placed): Hospice in Medical Facility Charges/Coding Visit Charges Inpatient E&M: 31169 Disch Hosp >30min
== END 2025-01-23 14:57 | disposition hospice, inpatient (51) | DRG 871 ==
LOC: ED 23:24 → PCU 01-12 00:17 → ICU 01-12 06:55 → PCU 01-20 15:11
PROVIDERS: Family Medicine; Internal Medicine; Internal Medicine Critical Care Medicine; Internal Medicine Pulmonary Disease; Admitting Provider Family Medicine; Emergency Provider Emergency Medicine; PCP Family Medicine; Visit Provider Student in an Organized Health Care Education/Training Program
DX: A41.52 Sepsis due to Pseudomonas (principal); J96.02 Acute respiratory failure with hypercapnia; R57.0 Cardiogenic shock; N17.0 Acute kidney failure with tubular necrosis; J15.1 Pneumonia due to Pseudomonas; J96.01 Acute respiratory failure with hypoxia; R65.21 Severe sepsis with septic shock; G93.41 Metabolic encephalopathy; J18.9 Pneumonia, unspecified organism; R18.8 Other ascites; I13.0 Hypertensive heart and chronic kidney disease with heart failure and stage 1 through stage 4 chronic kidney disease, or unspecified chronic kidney disease; E66.2 Morbid (severe) obesity with alveolar hypoventilation; I50.32 Chronic diastolic (congestive) heart failure; J90 Pleural effusion, not elsewhere classified; Z68.41 Body mass index [BMI] 40.0-44.9, adult; E87.21 Acute metabolic acidosis; N39.0 Urinary tract infection, site not specified; E11.22 Type 2 diabetes mellitus with diabetic chronic kidney disease; F03.90 Unspecified dementia, unspecified severity, without behavioral disturbance, psychotic disturbance, mood disturbance, and anxiety; K76.82 Hepatic encephalopathy; D50.0 Iron deficiency anemia secondary to blood loss (chronic); N18.9 Chronic kidney disease, unspecified; D69.6 Thrombocytopenia, unspecified; I48.0 Paroxysmal atrial fibrillation; E88.09 Other disorders of plasma-protein metabolism, not elsewhere classified; E86.1 Hypovolemia; E66.01 Morbid (severe) obesity due to excess calories; E78.5 Hyperlipidemia, unspecified; K75.81 Nonalcoholic steatohepatitis (NASH); E11.69 Type 2 diabetes mellitus with other specified complication; E80.7 Disorder of bilirubin metabolism, unspecified; Z79.84 Long term (current) use of oral hypoglycemic drugs; N95.0 Postmenopausal bleeding; E66.813 Obesity, class 3; R80.9 Proteinuria, unspecified; B96.89 Other specified bacterial agents as the cause of diseases classified elsewhere; Z79.899 Other long term (current) drug therapy; Z90.49 Acquired absence of other specified parts of digestive tract; B96.5 Pseudomonas (aeruginosa) (mallei) (pseudomallei) as the cause of diseases classified elsewhere; Z66 Do not resuscitate
CPT/HCPCS: 36415; 36569; 36600; 71045; 74176; 76705; 76770; 80048; 80053; 80074; 80076; 81001; 82140; 82533; 82570; 82607; 82728; 82746; 82803; 82962; 83010; 83540; 83550; 83605; 83615; 83690; 83735; 83880; 84100; 84300; 84439; 84443; 85014; 85018; 85025; 85027; 85045; 85379; 85384; 85610; 85730; 86850; 86900; 86901; 87040; 87070; 87077; 87086; 87088; 87184; 87186; 87205; 87449; 93005; 93306; 94002; 94003; 94640; 94762; 97803; 99252; 99285; P9016; P9047; Q9957; A4216; G0463; J0696; J1938; J2405